=== PATIENT | male | born 1940 | race Caucasian/White ===

== ENCOUNTER → 2016-11-05 | Outpatient (CLI) | payer BC ==
[~2016-11-05] MED LIST: ASPEC81 PO; BENAZEPRIL/HCTZ PO; GLC5 PO; GLC500 PO; LSX20 PO; NVLGI7030 SC; PRAV20TA PO
[2016-11-05 17:29] LABS: BASO % 0.6 %; BASO ABS # 0.04 K/uL (0-0.2); COMPLETE YES; EOS % 7.7 %; HEMATOCRIT 41.5 % (42-52); IG% 0.3 %; LYMPH % 21.5 %; MEAN CELL VOLUME 94.1 fL (80-100); MONO % 8.3 %; NEUT % 61.6 %; PLATELET COUNT 165 K/uL (130-400); RED BLOOD COUNT 4.41 M/uL (4.7-6.1); WHITE BLOOD COUNT 6.97 K/uL (4.8-10.8)
[2016-11-05 17:39] LABS: ALT/SGPT 20 U/L (12-78); AST/SGOT 19 U/L (15-37); BLOOD UREA NITROGEN 34 mg/dl (7-18); BUN/CREATININE RATIO 20.1 (10-20); CALCIUM 9.1 mg/dl (8.5-10.1); CARBON DIOXIDE 26 mmol/L (21-32); CHLORIDE 104 mmol/L (98-107); GLUCOSE 252 mg/dl (70-99); POTASSIUM 4.4 mmol/L (3.5-5.1); SODIUM 138 mmol/L (136-145)
[2016-11-05 17:45] LABS: URINE APPEARANCE CLEAR (CLEAR); URINE BILIRUBIN NEG (NEG); URINE COLOR YELLOW; URINE EPITHELIAL CELL AUTO 0-5 /lpf (0-5); URINE NITRITE NEG (NEG); URINE SPECIFIC GRAVITY 1.019 (1.000-1.030); UROBILINOGEN NEG (NEG); ZZUR CULT IF INDIC CLEAN CATCH NO
[2016-11-05 17:49] LABS: CHOLESTEROL 108 mg/dl (0-200); CHOLESTEROL/HDL RATIO 2.2; HDL CHOLESTEROL 49 mg/dl; LDL CHOLESTEROL CALCULATED 37 mg/dl; PHOSPHORUS 2.6 mg/dl (2.5-4.9); TRIGLYCERIDES 111 mg/dl (0-150); VERY LOW DENSITY LIPOPROT CALC 22 mg/dl
[2016-11-05 17:49] LABS: MANUAL MICROSCOPIC REQUIRED? NO; REVIEW REQ? NO
[2016-11-06 06:54] LABS: ESTIMATED AVERAGE GLUCOSE 174 mg/dl; HA1C FLAG Normal (Normal)
== END | disposition home or self-care (01) ==
LOC: C.LABBFT 14:35
PROVIDERS: ATTEND Internal Medicine
DX: E11.21 Type 2 diabetes mellitus with diabetic nephropathy (principal); N18.3 Chronic kidney disease, stage 3 (moderate); E11.22 Type 2 diabetes mellitus with diabetic chronic kidney disease; E55.9 Vitamin D deficiency, unspecified; E78.00 Pure hypercholesterolemia, unspecified

== ENCOUNTER 2017-03-28 17:11 | Inpatient (IN) | payer BC, OTHER ==
[~2017-03-28] VITALS: Ht 172.7 cm; Wt 136.2 kg
[2017-03-28] MEDS ORDERED: ALBUT/IPRATROP 3MG/0.5MG NEB 3 ML VIAL INH STA (18:17)
[2017-03-28] MEDS ORDERED: ATOR-24 PO ×2 (18:34)
[2017-03-28] MEDS ORDERED: ASPI81TA28 PO ×2 (18:34)
[2017-03-28] MEDS ORDERED: CHOL1000 PO ×2 (18:34)
[2017-03-28] MEDS ORDERED: INSU70IN2 SC ×2 (18:34)
[2017-03-28] MEDS ORDERED: LISI-788 PO (18:34)
[2017-03-28 18:42] LABS: BASO % 0.6 %; BASO ABS # 0.04 K/uL (0-0.2); EOS % 1.6 %; EOS ABS # 0.11 K/uL (0-0.5); HEMATOCRIT 36.6 % (42-52); HEMOGLOBIN 12.5 g/dL (14.0-18.0); IG# 0.01 K/uL (0.00-0.02); LYMPH % 11.7 %; LYMPH ABS # 0.81 K/uL (1.2-3.4); MEAN CELL VOLUME 93.4 fL (80-100); MEAN CORPUSCULAR HEMOGLOBIN 31.9 pg (25-34); MEAN CORPUSCULAR HGB CONC 34.2 g/dl (32-36); MEAN PLATELET VOLUME 9.1 fL (7.4-10.4); MONO % 9.2 %; MONO ABS # 0.64 K/uL (0.11-0.59); NEUT % 76.8 %; NEUT ABS # 5.33 K/uL (1.4-6.5); PLATELET COUNT 180 K/uL (130-400); RED CELL DISTRIBUTION WIDTH SD 44.3 fL (36.4-46.3); WHITE BLOOD COUNT 6.94 K/uL (4.8-10.8)
[2017-03-28 18:54] LABS: INR 1.1 (0.9-1.1); PTT PATIENT 25.6 SECONDS (21.0-31.0)
[2017-03-28 19:13] LABS: ALBUMIN 3.4 gm/dl (3.4-5.0); CALCIUM 9.1 mg/dl (8.5-10.1); CKMB 2.8 ng/ml (0.5-3.6); CREATININE 1.51 mg/dl (0.60-1.40); POTASSIUM 4.6 mmol/L (3.5-5.1); TOTAL PROTEIN 7.7 gm/dl (6.4-8.2)
--- NOTE | 2017-03-28 19:17 | DIAGNOSTIC IMAGING REPORT ---
CHEST ONE VIEW PORTABLE CLINICAL HISTORY: Respiratory distress. Dyspnea. COMPARISON STUDY: Chest radiograph February 13, 2009. FINDINGS: There is apparent mild right hemithorax volume loss. There is a right suprahilar density. A small right pleural effusion is noted with mild right lower lung airspace opacity. There is no evidence for pulmonary edema. Cardiomediastinal silhouette is stable. There is no pneumothorax. There is an old fracture of the right clavicle. IMPRESSION: 1. Right suprahilar airspace opacity with possible right upper lobe volume loss. A nonemergent chest CT to exclude underlying mass is recommended. 2. Small right pleural effusion with mild right lower lung opacity which may reflect atelectasis or pneumonia. Electronically signed by: Sung Norton M.D. 03/28/2017 7:16 PM Dictated Date/Time: 03/28/2017 7:14 PM
[2017-03-28] MEDS ORDERED: OPTIRAY 320 IV PRN (20:00)
--- NOTE | 2017-03-28 20:24 | EMERGENCY ROOM VISIT NOTE ---
History Report prepared by Len: Lu May Under the Supervision of: Dr. Taran Bonilla D.O. First contact with patient: 18:05 Chief Complaint: RESPIRATORY PROBLEMS Stated Complaint: TROUBLE BREATHING, DIABETIC SICK History of Present Illness The patient is a 76 year old male who presents to the Emergency Room with complaints of persistent SOB starting 1 week ago. The SOB is mostly present when he lies down. He has never had this before. He has had a nonproductive cough. He denies any fever, abdominal pain, or weight gain. He has had leg swelling for a while now. He has a history of diabetes. His sugars have been high at times. He denies any history of AR or COPD. He denies starting any new medications recently. He quit smoking 3 days ago. Source of History: patient Onset: 1 week ago Position: other (global) Quality: other (SOB) Timing: other (persistent) Modifying Factors (Worsening): other (lying down) Associated Symptoms: + cough, No fevers, No abdominal pain Note: Pt reports leg swelling. Review of Systems See HPI for pertinent positives & negatives. A total of 10 systems reviewed and were otherwise negative. Past Medical & Surgical Medical Problems: (1) Diabetes (2) Lung mass Family History No pertinent family history stated. Social History Smoking Status: Current Every Day Smoker Occupation Status: retired Current/Historical Medications Scheduled Aspirin (Aspirin Ec), 81 MG PO DAILY Atorvastatin (Lipitor), 40 MG PO DAILY Cholecalciferol (Vitamin D3), 1 TAB PO DAILY Insulin Human Isophan/Regular (Novolin 70/30), 95 UNITS SC BID Lisinopril/Hctz (Zestoretic 20MG/25MG), 1 TAB PO DAILY Allergies Coded Allergies: No Known Allergies (Verified , 03/28/17) Physical Exam Vital Signs Date Time Temp Pulse Resp B/P (MAP) Pulse Ox O2 Delivery O2 Flow Rate FiO2 03/28/17 23:00 91 20 148/103 95 Nasal Cannula 4.0 03/28/17 22:09 102 03/28/17 21:38 69 22 162/71 96 Nasal Cannula 4.0 03/28/17 20:30 95 20 127/84 97 Nasal Cannula 3.0 03/28/17 18:34 83 03/28/17 18:30 85 24 168/76 96 Nasal Cannula 3.0 03/28/17 18:10 95 Nasal Cannula 3.0 03/28/17 17:19 89 Room Air 03/28/17 17:18 Nasal Cannula 2.0 03/28/17 17:14 36.3 102 26 145/68 89 Room Air Physical Exam GENERAL: Patient is awake, alert, very anxious appearing and appears to be in mild distress. EYES: The conjunctivae are clear. The pupils are round and reactive. EARS, NOSE, MOUTH AND THROAT: The nose is without any evidence of any deformity. Mucous membranes are moist tongue is midline NECK: The neck is nontender and supple. RESPIRATORY: Lung sounds diminished throughout with expiratory wheezing in all [place]. There was significant tachypnea and conversational dyspnea. Diminished breath sounds at the right base. CARDIOVASCULAR: Regular rate and rhythm noted there no murmurs rubs or gallops normal S1 normal S2 GASTROINTESTINAL: The abdomen is soft. Bowel sounds are present in all quadrants. Abdomen is nontender MUSCULOSKELETAL/EXTREMITIES: There is no evidence of gross deformity full range of motion is noted in the hips and shoulders SKIN: Pedal edema bilaterally. NEUROLOGIC: Patient is awake alert and oriented x3 Medical Decision & Procedures ER Provider Diagnostic Interpretation: X-ray results as stated below per interpretation by me and the radiologist. Radiology results as stated below per my review and radiologist interpretation: CHEST ONE VIEW PORTABLE CLINICAL HISTORY: Respiratory distress. Dyspnea. COMPARISON STUDY: Chest radiograph February 13, 2009. FINDINGS: There is apparent mild right hemithorax volume loss. There is a right suprahilar density. A small right pleural effusion is noted with mild right lower lung airspace opacity. There is no evidence for pulmonary edema. Cardiomediastinal silhouette is stable. There is no pneumothorax. There is an old fracture of the right clavicle. IMPRESSION: 1. Right suprahilar airspace opacity with possible right upper lobe volume loss. A nonemergent chest CT to exclude underlying mass is recommended. 2. Small right pleural effusion with mild right lower lung opacity which may reflect atelectasis or pneumonia. Electronically signed by: Sung Norton M.D. 03/28/2017 7:16 PM Dictated Date/Time: 03/28/2017 7:[address] ANGIOGRAPHY OF THE CHEST, PULMONARY EMBOLUS PROTOCOL CLINICAL HISTORY: Shortness of breath. COMPARISON STUDY: Chest radiograph February 13, 2009 and March 28, 2017. TECHNIQUE: Following IV administration of 91 mL of Optiray-320, helical axial images of the chest were obtained utilizing the pulmonary embolus protocol. Maximal intensity projections and sagittal and coronal reformats were viewed on an independent 3D workstation. IV contrast was administered without complication. A dose lowering technique was utilized adhering to the principles of ALARA. CT DOSE: 774.39 mGy.cm FINDINGS: No pulmonary emboli are identified although the segmental and subsegmental pulmonary arteries are suboptimally assessed due to respiratory motion. The heart is mildly enlarged. There is extensive coronary artery calcification. There is no pericardial effusion. There is a small right pleural effusion. There is no pneumothorax. Note is made of a right suprahilar mass with mediastinal extension that measures approximately 7.3 x 5.2 cm. This mass extends across the midline and likely abuts the anterior aspect of the adrienne. This mass results in significant narrowing of several right upper lobe bronchi. There are multiple enlarged mediastinal lymph nodes, including a 2.8 cm left upper mediastinal lymph node, a 1.5 cm right upper mediastinal lymph node and a 2.3 cm prevascular lymph node. Lungs are suboptimally assessed due to respiratory motion. A 4 mm right lower lobe nodule is similar to CT of February 13, 2011 and is likely benign. No suspicious osseous lesions are present. Upper abdomen is unremarkable with exception of calcified granulomas within the spleen. IMPRESSION: 1. No pulmonary emboli identified although segmental and subsegmental vessels suboptimally assessed due to respiratory motion. 2. Large right suprahilar right upper lobe mass with extensive mediastinal extension, as described above. This lesion is highly suggestive of bronchogenic carcinoma. Pulmonary consultation is recommended. 3. 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 4. Small right pleural effusion which is nonspecific. A malignant effusion cannot be excluded. Electronically signed by: Sung Norton M.D. 03/28/2017 9:48 PM Dictated Date/Time: 03/28/2017 9:35 PM Laboratory Results Test 03/28/17 18:16 03/28/17 18:18 Prothrombin Time 11.1 SECONDS (9.0-12.0) Prothromb Time International Ratio 1.1 (0.9-1.1) Activated Partial Thromboplast Time 25.6 SECONDS (21.0-31.0) Partial Thromboplastin Ratio 1.0 Total Bilirubin 0.6 mg/dl (0.2-1) Aspartate Amino Transf (AST/SGOT) 24 U/L (15-37) Alanine Aminotransferase (ALT/SGPT) 31 U/L (12-78) Alkaline Phosphatase 145 U/L (45-117) Total Creatine Kinase 99 U/L (39-308) Creatine Kinase MB 2.8 ng/ml (0.5-3.6) Creatine Kinase MB Ratio 2.8 (0-3.0) Total Protein 7.7 gm/dl (6.4-8.2) Albumin 3.4 gm/dl (3.4-5.0) Globulin 4.3 gm/dl (2.5-4.0) Albumin/Globulin Ratio 0.8 (0.9-2) Venous Blood pH 7.32 (7.36-7.41) Venous Blood Partial Pressure CO2 64 mmHg (38.0-50.0) Venous Blood Partial Pressure O2 46 mmHg Venous Blood HCO3 33 mmol/L Venous Blood Oxygen Saturation 73.9 % Venous Blood Base Excess 4.8 mEq/L Laboratory results per my review. Medications Administered Medications (Trade) Dose Ordered Sig/Michel Route Start Time Stop Time Status Last Admin Dose Admin Albuterol/ Ipratropium (Duoneb) 3 ml NOW STAT INH 03/28/17 18:17 03/28/17 18:18 DC 03/28/17 18:32 3 ML Methylprednisolone Sodium Succinate (Solu-Medrol IV) 125 mg NOW STAT IV 03/28/17 23:52 03/28/17 23:58 DC 03/29/17 01:21 125 MG ECG Per My Interpretation Indication: SOB/dyspnea Rate (beats per minute): 87 Rhythm: normal sinus Findings: no ectopy, other (no acute ST segments) Comparison ECG Date: 13-Feb-2009 Change: no significant change ED Course 1809: The patient was evaluated in room B5. A complete history and physical examination were performed. 1816: Duoneb 3 ml INH. 1943: I reevaluated the patient. I updated him on the results. 2204: Upon reevaluation, the patient is stable. I discussed results and treatment plan with him. He verbalizes agreement and understanding. The patient will be evaluated for further management and care. 2303: I discussed the patient's case with Dr. Ortiz, [facility] hospitalist. The patient will be evaluated for further management. Medical Decision Prior records/ancillary studies reviewed. Triage Nursing notes reviewed. Additional history obtained from the family. The patient's history was concerning for respiratory difficulties. Differential diagnosis: Etiologies such as infections, reactive airway disease, pneumonia, pneumothorax , COPD, CHF, cardiac ischemia, pulmonary embolism, musculoskeletal, gastrointestinal, as well as others were entertained. The patient is a 76-year-old male who presented to the emergency department for an evaluation of cough and orthopnea. The patient has a long smoking history. His chest x-ray appeared to be consistent with a large mass in the right upper lobe with widening to the mediastinum and the right hilar region. CT did not reveal signs of venous thromboembolic disease but did show a large mass which is likely consistent with a neoplastic process with significant mediastinal lymph nodes. I discussed the patient's laboratory and radiographic studies with him. He was treated with supplemental oxygen and DuoNeb therapy in the emergency department. His condition was significantly improved. I discussed the patient's condition with his family member. Initially he did not wish to stay in the hospital for further workup but I do feel given the patient's abnormal vital signs this would be the best course of action. I discussed his case with the on-call [facility] hospitalist group. They have agreed to evaluate the patient in the emergency department for further management and disposition. Medication Reconcilliation Current Medication List: was personally reviewed by me Blood Pressure Screening Patient's blood pressure: Elevated blood pressure Blood pressure disposition: Referred to PCP Consults Time Called: 2208 Consulting Physician: Dr. Ortiz, [facility] hospitalist Returned Call: [phone] I discussed the patient's case with him. The patient will be evaluated for further management. Impression Primary Impression: SOB (shortness of breath) Additional Impressions: Lung mass Hypoxia COPD (chronic obstructive pulmonary disease) Scribe Attestation The scribe's documentation has been prepared under my direction and personally reviewed by me in its entirety. I confirm that the note above accurately reflects all work, treatment, procedures, and medical decision making performed by me. Departure Information Dispostion Being Evaluated By Hospitalist Referrals Anil Valdez M.D. (PCP) Patient Instructions [facility] Health Problem Qualifiers Additional Impressions: COPD (chronic obstructive pulmonary disease) COPD type: unspecified COPD Qualified Codes: J44.9 - Chronic obstructive pulmonary disease, unspecified
--- NOTE | 2017-03-28 21:49 | DIAGNOSTIC IMAGING REPORT ---
CT ANGIOGRAPHY OF THE CHEST, PULMONARY EMBOLUS PROTOCOL CLINICAL HISTORY: Shortness of breath. COMPARISON STUDY: Chest radiograph February 13, 2009 and March 28, 2017. TECHNIQUE: Following IV administration of 91 mL of Optiray-320, helical axial images of the chest were obtained utilizing the pulmonary embolus protocol. Maximal intensity projections and sagittal and coronal reformats were viewed on an independent 3D workstation. IV contrast was administered without complication. A dose lowering technique was utilized adhering to the principles of ALARA. CT DOSE: 774.39 mGy.cm FINDINGS: No pulmonary emboli are identified although the segmental and subsegmental pulmonary arteries are suboptimally assessed due to respiratory motion. The heart is mildly enlarged. There is extensive coronary artery calcification. There is no pericardial effusion. There is a small right pleural effusion. There is no pneumothorax. Note is made of a right suprahilar mass with mediastinal extension that measures approximately 7.3 x 5.2 cm. This mass extends across the midline and likely abuts the anterior aspect of the adrienne. This mass results in significant narrowing of several right upper lobe bronchi. There are multiple enlarged mediastinal lymph nodes, including a 2.8 cm left upper mediastinal lymph node, a 1.5 cm right upper mediastinal lymph node and a 2.3 cm prevascular lymph node. Lungs are suboptimally assessed due to respiratory motion. A 4 mm right lower lobe nodule is similar to CT of February 13, 2011 and is likely benign. No suspicious osseous lesions are present. Upper abdomen is unremarkable with exception of calcified granulomas within the spleen. IMPRESSION: 1. No pulmonary emboli identified although segmental and subsegmental vessels suboptimally assessed due to respiratory motion. 2. Large right suprahilar right upper lobe mass with extensive mediastinal extension, as described above. This lesion is highly suggestive of bronchogenic carcinoma. Pulmonary consultation is recommended. 3. 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 4. Small right pleural effusion which is nonspecific. A malignant effusion cannot be excluded. Electronically signed by: Sung Norton M.D. 03/28/2017 9:48 PM Dictated Date/Time: 03/28/2017 9:35 PM
[2017-03-28] MEDS ORDERED: ACETAMINOPHEN 325 MG TAB PO PRN (23:45)
[2017-03-28] MEDS ORDERED: POLYETHYLENE (MIRALAX) 17 GM PACK PO PRN (23:45)
[2017-03-28] MEDS ORDERED: ALUMINUM/MAGNESIUM/SIMETH (MAALOX MAX) 30 ML UDC PO PRN (23:45)
[2017-03-28] MEDS ORDERED: MAGNESIUM HYDROXIDE SUSP 30 ML UDC PO PRN (23:45)
[2017-03-28] MEDS ORDERED: ONDANSETRON INJ 2 MG/ML 2 ML VIAL IV PRN (23:45)
[2017-03-28] MEDS ORDERED: METHYLPREDNISOLONE 125 MG VIAL IV STA (23:52)
[2017-03-29] VITALS (12 sets, daily range): BP systolic 108–151; BP diastolic 56–74; PULSE 66–123; TEMP 36.2–36.9; O2SAT 92–99; BMI 44.2
[2017-03-29] MEDS ORDERED: GLUCOSE 40% GEL 15 GM TUBE PO PRN (00:15)
[2017-03-29] MEDS ORDERED: GLUCOSE 10 TABS/TUBE PO PRN (00:15)
[2017-03-29] MEDS ORDERED: GLUCAGON FOR INJ 1 MG VIAL SQ PRN (00:15)
[2017-03-29] MEDS ORDERED: NITROGLYCERIN 0.4 MG SL PER TAB CHARGE SL PRN (00:15)
[2017-03-29] MEDS ORDERED: DEXTROSE 50% 50 ML SYR IV PRN (00:15)
[2017-03-29] MEDS ORDERED: IV FLUIDS COMPLETED PRN (00:30)
[2017-03-29] MEDS ORDERED: INSULIN HUMAN REGULAR PER UNIT 5 UNITS in SYRINGE 4.95 ML IV SCH (01:15)
[2017-03-29] MEDS ORDERED: INSULIN ASPART 100 UNITS/ML 3 ML PEN SC ONE (01:15)
[2017-03-29] MEDS ORDERED: INSULIN GLARGINE SC ONE ×2 (01:15→18:15)
--- NOTE | 2017-03-29 01:56 | History and Physical ---
History & Physical Date & Time of Service: Mar 29, 2017 at 01:37 Chief Complaint: Trouble Breathing, Diabetic Sick Primary Care Physician: Anil Valdez M.D. History of Present Illness Source: patient, family (daughter) the patient is a 76 year old male with type 2 diabetes mellitus, HTN, hyperlipidemia, obesity who presents with acute on chronic shortness of breath. The patient is a 2 pack daily smoker and states he quit 3 days ago. However, he states that for the past few years he has a persistent shortness of breath that is worse with exertion. He feels wheezy. However this past week, his shortness of breath has significantly worsened and he is now having a dry cough. He denies every being diagnosed with obstructive lung disease. The patient denies chest pain, palpitations, orthopnea/nocturnal dyspnea or lower extremity swelling. The patient has not had fevers, chills or sweats. He reports normal intake. There is no reported urinary symptoms of dysuria, frequency or urgency. There are no symptoms of diarrhea, melena or rectal bleeding. The patient denies abdominal pain, nausea, or vomiting. In the ER, the patient had a CT scan of the lung revealing a right apical mass with lymphadenopathy which was concerning for malignancy. The patient wanted to go home but daughter was very concerned that if he were to go home without plan for work-up he would be lost to follow-up. The patient was also hypoxic, require 3 L by nasal cannula, whereas he flores snot require any oxygen at home. The decision was made to admit the patient for further evaluation and treatment. Past Medical/Surgical History Medical Problems: (1) Diabetes Status: Chronic Family History CAD Type 2 DM Social History Smoking Status: Current Every Day Smoker Occupational Status: retired Immunizations History of Influenza Vaccine: Yes History of Tetanus Vaccine?: Yes Tetanus Immunization Date: Feb 22, 2004 History of Pneumococcal: Yes Pneumococcal Date: Feb 21, 2007 History of Hepatitis B Vaccine: No Multi-Drug Resistant Organisms History of MDRO: No Allergies Coded Allergies: No Known Allergies (Verified , 03/28/17) Home Medications Scheduled Aspirin (Aspirin Ec), 81 MG PO DAILY Atorvastatin (Lipitor), 40 MG PO DAILY Cholecalciferol (Vitamin D3), 1 TAB PO DAILY Insulin Human Isophan/Regular (Novolin 70/30), 95 UNITS SC BID Lisinopril/Hctz (Zestoretic 20MG/25MG), 1 TAB PO DAILY Review of Systems A 10 point review of systems was negative unless stated above. Physical Exam Vital Signs Date Time Temp Pulse Resp B/P (MAP) Pulse Ox O2 Delivery O2 Flow Rate FiO2 03/29/17 00:23 90 22 148/89 96 Nasal Cannula 4.0 03/28/17 23:00 91 20 148/103 95 Nasal Cannula 4.0 03/28/17 22:09 102 03/28/17 21:38 69 22 162/71 96 Nasal Cannula 4.0 03/28/17 20:30 95 20 127/84 97 Nasal Cannula 3.0 03/28/17 18:34 83 03/28/17 18:30 85 24 168/76 96 Nasal Cannula 3.0 03/28/17 18:10 95 Nasal Cannula 3.0 03/28/17 17:19 89 Room Air 03/28/17 17:18 Nasal Cannula 2.0 03/28/17 17:14 36.3 102 26 145/68 89 Room Air General Appearance: WD/WN, no apparent distress, + obese Head: normocephalic, atraumatic Eyes: normal inspection, EOMI ENT: hearing grossly normal, pharynx normal Neck: supple, no adenopathy, no JVD Respiratory/Chest: chest non-tender, no accessory muscle use, + wheezing (mild end-expiratory), + pertinent finding (diminished breath sounds throughout all lung [place]) Cardiovascular: regular rate, rhythm, no gallop, no murmur Abdomen/GI: normal bowel sounds, non tender, soft Back: no CVA tenderness, no muscle spasm Extremities/Musculoskelatal: no calf tenderness, normal capillary refill, no pedal edema, + pertinent finding (asencio lichenification) Neurologic/Psych: alert, normal mood/affect, oriented x 3 Skin: normal color, warm/dry, no rash Lymphatic: no adenopathy Diagnostics Laboratory Results Results Past 24 Hours Test 03/28/17 18:16 03/28/17 18:18 Range/Units White Blood Count 6.94 4.8-10.8 K/uL Red Blood Count 3.92 4.7-6.1 M/uL Hemoglobin 12.5 14.0-18.0 g/dL Hematocrit 36.6 42-52 % Mean Corpuscular Volume 93.4 80-100 fL Mean Corpuscular Hemoglobin 31.9 25-34 pg Mean Corpuscular Hemoglobin Concent 34.2 32-36 g/dl Platelet Count 180 130-400 K/uL Mean Platelet Volume 9.1 7.4-10.4 fL Neutrophils (%) (Auto) 76.8 % Lymphocytes (%) (Auto) 11.7 % Monocytes (%) (Auto) 9.2 % Eosinophils (%) (Auto) 1.6 % Basophils (%) (Auto) 0.6 % Neutrophils # (Auto) 5.33 1.4-6.5 K/uL Lymphocytes # (Auto) 0.81 1.2-3.4 K/uL Monocytes # (Auto) 0.64 0.11-0.59 K/uL Eosinophils # (Auto) 0.11 0-0.5 K/uL Basophils # (Auto) 0.04 0-0.2 K/uL RDW Standard Deviation 44.3 36.4-46.3 fL RDW Coefficient of Variation 13.0 11.5-14.5 % Immature Granulocyte % (Auto) 0.1 % Immature Granulocyte # (Auto) 0.01 0.00-0.02 K/uL Prothrombin Time 11.1 9.0-12.0 SECONDS Prothromb Time International Ratio 1.1 0.9-1.1 Activated Partial Thromboplast Time 25.6 21.0-31.0 SECONDS Partial Thromboplastin Ratio 1.0 Sodium Level 132 136-145 mmol/L Potassium Level 4.6 3.5-5.1 mmol/L Chloride Level 94 98-107 mmol/L Carbon Dioxide Level 32 21-32 mmol/L Anion Gap 6.0 3-11 mmol/L Blood Urea Nitrogen 30 7-18 mg/dl Creatinine 1.51 0.60-1.40 mg/dl Est Creatinine Clear Calc Drug Dose 57.4 ml/min Estimated GFR () 51.6 Estimated GFR (Non- 44.5 BUN/Creatinine Ratio 19.9 10-20 Random Glucose 389 70-99 mg/dl Calcium Level 9.1 8.5-10.1 mg/dl Total Bilirubin 0.6 0.2-1 mg/dl Aspartate Amino Transf (AST/SGOT) 24 15-37 U/L Alanine Aminotransferase (ALT/SGPT) 31 12-78 U/L Alkaline Phosphatase 145 45-117 U/L Total Creatine Kinase 99 39-308 U/L Creatine Kinase MB 2.8 0.5-3.6 ng/ml Creatine Kinase MB Ratio 2.8 0-3.0 Troponin I 0.203 0-0.045 ng/ml Pro-B-Type Natriuretic Peptide 224 0-900 pg/ml Total Protein 7.7 6.4-8.2 gm/dl Albumin 3.4 3.4-5.0 gm/dl Globulin 4.3 2.5-4.0 gm/dl Albumin/Globulin Ratio 0.8 0.9-2 Beta-Hydroxybutyric Acid 0.95 0.2-2.81 mg/dL Venous Blood pH 7.32 7.36-7.41 Venous Blood Partial Pressure CO2 64 38.0-50.0 mmHg Venous Blood Partial Pressure O2 46 mmHg Venous Blood HCO3 33 mmol/L Venous Blood Oxygen Saturation 73.9 % Venous Blood Base Excess 4.8 mEq/L Diagnostic Radiology CT ANGIOGRAPHY OF THE CHEST, PULMONARY EMBOLUS PROTOCOL CLINICAL HISTORY: Shortness of breath. COMPARISON STUDY: Chest radiograph February 13, 2009 and March 28, 2017. TECHNIQUE: Following IV administration of 91 mL of Optiray-320, helical axial images of the chest were obtained utilizing the pulmonary embolus protocol. Maximal intensity projections and sagittal and coronal reformats were viewed on an independent 3D workstation. IV contrast was administered without complication. A dose lowering technique was utilized adhering to the principles of ALARA. CT DOSE: 774.39 mGy.cm FINDINGS: No pulmonary emboli are identified although the segmental and subsegmental pulmonary arteries are suboptimally assessed due to respiratory motion. The heart is mildly enlarged. There is extensive coronary artery calcification. There is no pericardial effusion. There is a small right pleural effusion. There is no pneumothorax. Note is made of a right suprahilar mass with mediastinal extension that measures approximately 7.3 x 5.2 cm. This mass extends across the midline and likely abuts the anterior aspect of the adrienne. This mass results in significant narrowing of several right upper lobe bronchi. There are multiple enlarged mediastinal lymph nodes, including a 2.8 cm left upper mediastinal lymph node, a 1.5 cm right upper mediastinal lymph node and a 2.3 cm prevascular lymph node. Lungs are suboptimally assessed due to respiratory motion. A 4 mm right lower lobe nodule is similar to CT of February 13, 2011 and is likely benign. No suspicious osseous lesions are present. Upper abdomen is unremarkable with exception of calcified granulomas within the spleen. IMPRESSION: 1. No pulmonary emboli identified although segmental and subsegmental vessels suboptimally assessed due to respiratory motion. 2. Large right suprahilar right upper lobe mass with extensive mediastinal extension, as described above. This lesion is highly suggestive of bronchogenic carcinoma. Pulmonary consultation is recommended. 3. 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 4. Small right pleural effusion which is nonspecific. A malignant effusion cannot be excluded. Electronically signed by: Sung Norton M.D. 03/28/2017 9:48 PM Dictated Date/Time: 03/28/2017 9:35 PM Impression Assessment and Plan 76 year old male with acute on chronic shortness of breath and cough, presenting with hypoxia and radiographic findings of new lung mass highly suspicious for malignancy. The plan for the patient is as follows: Acute Hypoxic Respiratory Failure - 3 L in ED; no home O2 requirements - Duonebs q4h Michel and q2h PRN - 125 mg IV Solumedrol --> 40 mg IV TID starting tomorrow; taper per day team - No evidence of PNA, will hold off on antibiotics Right Apical Lung Mass - Concern for Malignancy - Consult thoracic surgery for recommendations on work-up Suspected Occult COPD - Nebs as above - Consider discharged on inhalers - Will check echocardiogram to evaluate for pulmonary HTN Elevated Troponin - No chest pain; clinically suspicious for supply demand mismatch - EKG is NSR - Monitor in telemetry; serial cardiac enzyme monitoring - Nitro PRN for chest pain Type 2 Diabetes Mellitus - Home home 70/30 NPH insulin - Start Lantus 65 Units BID + SSI - May have higher insulin requirements with steroids on board Chronic Kidney Disease Stage 3b - Stable; Baseline Cr 1.6-1.7; Baseline eGFR 35-45 - Follow daily - Avoid nephrotoxins Hyperlipidemia, Hypertension - Continue Simvastatin - Continue Lisinopril HCTZ - Patient on ASA at home; reason unclear; no history of CAD so likely for primary prevention Chronic Tobacco Abuse - Nicotine patch daily DVT Prophylaxis - SCD Knee, MARLI Hose - Heparin 5000 U s.c. TID Code Status - Level I Full Code Disposition - Telemetry - OT and PT evaluations Resident Physician Supervision Note: I was present with Dr. Kingsley during the history and exam. I discussed the case with the resident and agree with the findings and plan as documented in the note. Any exceptions or clarifications are listed here: 76 y/o M Hx HTN, HPL, DM II, CKD III, likely COPD - 2 pack/day smoker - presents with SOB primarily. A CT was obtained in the ER and unfortunately shows a R lung mass. Troponin is incidentally elevated without related symptoms or ischemia on EKG. OE AAO x 3 S1,2 R CTA NT, ND No CCE P: Thoracic surgery eval for lung mass requested Trop will be trended and echo ordered Creat is at baseline - can remain on current HTN meds We will treat for presumed COPD exacerbation Placed on a SS and lantus Above discussed with pt and daughter at length Documented By: Marko Womack Level of Care Telemetry Resuscitation Status FULL RESUSCITATION VTE Prophylaxis VTE Risk Assessment Done? Y/N: Yes Risk Level: Moderate Given or contraindicated: Unfractionated heparin SQ
[2017-03-29] MEDS: ALBUT/IPRATROP 3MG/0.5MG NEB 3 ML VIAL INH SCH ×5 (02:37→19:46)
[2017-03-29] MEDS: INSULIN ASPART 100 UNITS/ML 3 ML PEN SC SCH ×5 (04:50→20:58)
[2017-03-29] MEDS ORDERED: HEPARIN SOD 5000 UNIT/0.5 ML CARP SQ SCH (06:00)
[2017-03-29 06:36] LABS: BASO % 0.1 %; BASO ABS # 0.01 K/uL (0-0.2); EOS % 0.1 %; EOS ABS # 0.01 K/uL (0-0.5); HEMATOCRIT 38.6 % (42-52); HEMOGLOBIN 12.6 g/dL (14.0-18.0); IG# 0.02 K/uL (0.00-0.02); LYMPH % 4.5 %; LYMPH ABS # 0.34 K/uL (1.2-3.4); MEAN CELL VOLUME 95.5 fL (80-100); MEAN CORPUSCULAR HEMOGLOBIN 31.2 pg (25-34); MEAN CORPUSCULAR HGB CONC 32.6 g/dl (32-36); MEAN PLATELET VOLUME 9.3 fL (7.4-10.4); MONO % 1.2 %; MONO ABS # 0.09 K/uL (0.11-0.59); NEUT % 93.8 %; NEUT ABS # 7.05 K/uL (1.4-6.5); PLATELET COUNT 170 K/uL (130-400); RED CELL DISTRIBUTION WIDTH CV 13.2 % (11.5-14.5); RED CELL DISTRIBUTION WIDTH SD 46.2 fL (36.4-46.3); WHITE BLOOD COUNT 7.52 K/uL (4.8-10.8)
[2017-03-29 06:59] LABS: CREATININE 1.61 mg/dl (0.60-1.40); POTASSIUM 4.8 mmol/L (3.5-5.1)
[2017-03-29] MEDS: LISINOPRIL/HCTZ 20/25MG TAB PO SCH (08:34)
[2017-03-29] MEDS: ATORVASTATIN 40 MG TAB PO SCH (08:34)
[2017-03-29] MEDS: METHYLPREDNISOLONE IV 40 MG in SYRINGE 0 ML IV SCH ×3 (08:34→23:44)
[2017-03-29] MEDS ORDERED: INSULIN GLARGINE SC SCH ×2 (09:00→21:00)
[2017-03-29] MEDS: NICOTINE 21 MG/24 HR TDSY TD SCH (09:00)
[2017-03-29] MEDS ORDERED: ASPIRIN 81 MG ECTAB PO SCH (09:00)
[2017-03-29] MEDS ORDERED: INSULIN HUMAN 70% NPH/30% REGULAR SC SCH (09:00)
--- NOTE | 2017-03-29 11:32 | Medical Consult ---
Consultation Note Date of Service Mar 29, 2017. Consultation Note Surgical Consultation Note: 03/29/2017 Reason for Consultation: Mediastinal lymphadenopathy with right hilar mass in a patient with a long history of cigarette smoking. History of Present Illness: This is a 76-year-old who started smoking before the age of 11 is averaged at least 2 packs a day for the last 60+ years. He was smoking up in the time of his admission. He was admitted because the week or so for he came and he could no longer lie down in "breathe". He had dyspnea on exertion that has been worsening but he then had dyspnea at rest and was quite concerned. Denies hemoptysis. He denies productive cough or fevers. With his inability to lie down he has been forced to sleep in a chair which is not his habit. He has had marked edema of his legs with this. He has had no real weight loss. He really is not having much in the way of pain. He is very eager to go home. As he was hypoxic he was admitted. I have been asked to evaluate him for a tissue biopsy. Past Medical History: Long history of cigarette smoking (greater than 120 pack years). Obesity Diabetes mellitus Hypertension Chronic obstructive pulmonary disease Hyperlipidemia Past Surgical History: Bilateral inguinal herniorrhaphies Bilateral cataract extractions Appendectomy for mucocele Medications: Insulin Zestoretic Lipitor Aspirin Allergies: No known drug allergies Social History: The patient grew up in [place] and still lives there. He is from a large family. He currently lives alone. He is a smoker and actively smokes. He has used alcohol the past but not now. He has a daughter who is involved in his care. 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 Family Medical History: The patient an older brother who in his 70s from a "cancer". He was unclear of its origin. His father was killed in a motor vehicle accident in his 40s. Mother in her early 80s after a hip surgery and subsequent infection. He has had 2 sisters who from unknown reasons another brother who of unclear reason. His 2 daughters are healthy. He has no grandchildren. Review of Systems: He denies any weight loss. He does have shortness of breath as outlined in the history of present illness. He denies productive cough. He has no bone pain. He has no recent visual or auditory symptoms. He has had no wound breakdown. He does suffer from what appears to be venous lower extremity edema. He denies any neurologic symptoms such as amaurosis fugax or transient ischemic attack and he has had no seizures. Has been quite short of breath. Denies any GI or problems. Feels that he is a bit weaker. He denies night sweats. Physical Exam: This is a heavyset male who appears his stated age of 76. He is awake alert and conversive. His extraocular movements are intact. His pupils are small. His sclera are pale. He has no nasolabial flattening. He has no upper teeth but still has his lower teeth in place. He has no obvious oral mucosal lesions and his tongue is midline. His neck is thick but supple. He has no lymphadenopathy I can palpate and in particular I could not palpate any supraclavicular adenopathy. He has no carotid bruits or neck vein distention. He has decreased breath sounds throughout upon auscultation of his lungs. He has mild expiratory wheezing. He has distant heart sounds with a regular rate and rhythm his heart. His abdomen is huge protuberant but soft and nontender. He has a well-healed right transverse right lower quadrant incision and 2 inguinal incisions for his hernias which are well-healed. 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 He has 2+ edema of his feet. 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 He has no focal deficits. He is awake alert and conversive. Data: His white count is not elevated at 6940. Hemoglobin is a bit low at 12.5. Creatinine is also a bit elevated at 1.51 and his BUN was 30. I closely reviewed the CT scan of his chest. This process in his mediastinum is almost occluded his superior vena cava. It appears that he does indeed have a bronchogenic carcinoma. 1 of the problems could be that this is a small cell lung carcinoma. Could also be a lymphoma although this less likely. He has a small right pleural effusion. Assessment/Plan: Probable neoplastic process in his chest. I explained that we need a tissue diagnosis. There are couple of different options. One would be to tap his effusion however it is small it is possible that it is reactive. I also considered a needle biopsy however given its location, radiology will be hesitant to offer this. We discussed an endobronchial ultrasound with biopsy versus mediastinoscopy. This patient lives alone and is going to be very poor with follow-up. His daughter would like "everything" done here. I am concerned we may not get a diagnosis with genomic markers and immunohistochemical stains with a fine needle aspiration with the endobronchial ultrasound. I think a video mediastinoscopy will give us our fastest and most reliable diagnosis. I have scheduled him for tomorrow morning. We discussed risks and benefits and he is agreeable.
--- NOTE | 2017-03-29 12:54 | Family Medicine Progress Note ---
Progress Note Date of Service Mar 29, 2017. Subjective I spoke at length with Mr. Jordan this morning. He expresses a desire to go home as soon as possible, however conversely is experiencing improved ability to rest than he has had in a while. Describes difficulty breathing when he would lay down for the past 2 weeks, and which he had to sleep in a recliner. Before that the pt describes an extensive smoking history of 2 ppd for the past several years, and 1 ppd for years before that. Denies chest pain, headaches, syncope, abdominal pain, diarrhea, dysuria, blood in stool or urine. Notes chronic leg swelling and dryness and dry cough. Per night team, pt's daughter is involved and urged him to stay overnight. ROS See HPI for pertinent positives and negatives. Medications Current Inpatient Medications Medications (Trade) Dose Ordered Sig/Michel Route Start Time Stop Time Status Last Admin Dose Admin Ioversol (Optiray 320) 100 ml UD PRN IV 03/28/17 20:00 04/01/17 19:59 Heparin Sodium (Porcine) (Heparin Sq 5000 Unit/0.5ml) 5,000 unit Q8H SQ 03/29/17 06:00 04/28/17 05:59 Future Hold Acetaminophen (Tylenol Tab) 650 mg Q4H PRN PO 03/28/17 23:45 04/27/17 23:44 Al Hydrox/Mg Hydrox/Simethicone (Maalox Max Susp) 15 ml Q4H PRN PO 03/28/17 23:45 04/27/17 23:44 Magnesium Hydroxide (Milk Of Magnesia Susp) 30 ml Q6H PRN PO 03/28/17 23:45 04/27/17 23:44 Polyethylene (Miralax Powder Packet) 17 gm DAILY PRN PO 03/28/17 23:45 04/27/17 23:44 Ondansetron HCl (Zofran Inj) 4 mg Q6H PRN IV 03/28/17 23:45 04/27/17 23:44 Albuterol/ Ipratropium (Duoneb) 3 ml QIDR INH 03/29/17 08:00 04/28/17 07:59 03/29/17 11:13 3 ML Aspirin (Ecotrin Tab) 81 mg DAILY PO 03/29/17 09:00 04/28/17 08:59 03/29/17 08:34 81 MG Atorvastatin Calcium (Lipitor Tab) 40 mg DAILY PO 03/29/17 09:00 04/28/17 08:59 03/29/17 08:34 40 MG HCTZ/Lisinopril (Prinzide 20-25MG Tab) 1 tab DAILY PO 03/29/17 09:00 04/28/17 08:59 03/29/17 08:34 1 TAB Methylprednisolone Sodium Succinate 40 mg/Syringe 0.64 ml @ 1.5 mls/min Q8H IV 03/29/17 08:00 04/28/17 07:59 03/29/17 08:34 1.5 MLS/MIN Insulin Aspart (novoLOG ASPART) SLIDING SCALE G... ACHS SC 03/29/17 04:00 04/28/17 03:59 03/29/17 08:39 14 UNITS Glucose (Glucose 40% Gel) 15-30 GRAMS 15 GRAMS... UD PRN PO 03/29/17 00:15 04/28/17 00:14 Glucose (Glucose Chew Tab) 4-8 Tablets 4 Tabl... UD PRN PO 03/29/17 00:15 04/28/17 00:14 Dextrose (Dextrose 50% 50ML Syringe) 25-50ML OF 50% DW IV FOR... UD PRN IV 03/29/17 00:15 04/28/17 00:14 Glucagon (Glucagon Inj) 1 mg UD PRN SQ 03/29/17 00:15 04/28/17 00:14 Nitroglycerin (Nitrostat Tab) 0.4 mg PRN PRN SL 03/29/17 00:15 04/28/17 00:14 Miscellaneous (Iv Fluids Completed) 1 ea PRN PRN N/A 03/29/17 00:30 03/29/18 00:29 Insulin Glargine (Lantus Vial) 65 units BID SC 03/29/17 09:00 04/28/17 08:59 03/29/17 08:39 65 UNITS Nicotine (Nicoderm Cq 21MG Patch) 1 patch QAM TD 03/29/17 09:00 04/28/17 08:59 Miscellaneous (Remove Nicoderm Patch) 1 ea HS N/A 03/29/17 21:00 04/28/17 20:59 Objective Vital Signs Date Time Temp Pulse Resp B/P (MAP) Pulse Ox O2 Delivery O2 Flow Rate FiO2 03/29/17 11:15 36.5 103 18 133/73 (93) Nasal Cannula 03/29/17 11:13 99 16 95 Nasal Cannula 4.0 03/29/17 08:00 Nasal Cannula 4.0 03/29/17 08:00 36.5 66 20 115/74 (88) 96 Room Air 03/29/17 07:21 111 16 99 Nasal Cannula 4.0 03/29/17 04:00 97 Nasal Cannula 4.0 03/29/17 02:37 93 16 98 Nasal Cannula 4.0 03/29/17 02:00 36.2 104 16 151/74 03/29/17 02:00 36.2 104 20 151/74 98 Nasal Cannula 4.0 03/29/17 00:23 90 22 148/89 96 Nasal Cannula 4.0 03/28/17 23:00 91 20 148/103 95 Nasal Cannula 4.0 03/28/17 22:09 102 03/28/17 21:38 69 22 162/71 96 Nasal Cannula 4.0 03/28/17 20:30 95 20 127/84 97 Nasal Cannula 3.0 03/28/17 18:34 83 03/28/17 18:30 85 24 168/76 96 Nasal Cannula 3.0 03/28/17 18:10 95 Nasal Cannula 3.0 03/28/17 17:19 89 Room Air 03/28/17 17:18 Nasal Cannula 2.0 03/28/17 17:14 36.3 102 26 145/68 89 Room Air Physical Exam Notes: GENERAL: Awake, alert, obese. Sitting on side of bed. HENT: Normocephalic, atraumatic. Nasal cannula in place 4 L. Poor dentition. EYES: Normal conjunctiva. Sclera non-icteric. RESPIRATORY: Diminished breath sounds bilaterally. CARDIAC: Regular rate, normal rhythm. Extremities warm. Pulses equal. ABDOMEN: Soft, non-distended. No tenderness to palpation. No rebound or guarding. No masses. RECTAL: Deferred. MUSCULOSKELETAL: Chest examination reveals no tenderness. The back is symmetrical on inspection without obvious abnormality. There is no CVA tenderness to palpation. No joint edema. LOWER EXTREMITIES: Calves are equal size bilaterally and non-tender. Severe dryness of lower calves. Non erythematous, trace edema. NEURO: No motor deficits noted. SKIN: No rash or jaundice noted. Innumerable actinic keratotic plaques visible. Laboratory Results 03/29/17 06:09 Red Blood Count 4.04, Mean Corpuscular Volume 95.5, Mean Corpuscular Hemoglobin 31.2, Mean Corpuscular Hemoglobin Concent 32.6, Mean Platelet Volume 9.3, Neutrophils (%) (Auto) 93.8, Lymphocytes (%) (Auto) 4.5, Monocytes (%) (Auto) 1.2, Eosinophils (%) (Auto) 0.1, Basophils (%) (Auto) 0.1, Neutrophils # (Auto) 7.05, Lymphocytes # (Auto) 0.34, Monocytes # (Auto) 0.09, Eosinophils # (Auto) 0.01, Basophils # (Auto) 0.01 03/29/17 06:09 Test 03/28/17 18:16 03/28/17 18:18 03/29/17 06:09 03/29/17 11:50 Prothrombin Time 11.1 SECONDS (9.0-12.0) Prothromb Time International Ratio 1.1 (0.9-1.1) Activated Partial Thromboplast Time 25.6 SECONDS (21.0-31.0) Partial Thromboplastin Ratio 1.0 Total Bilirubin 0.6 mg/dl (0.2-1) Aspartate Amino Transf (AST/SGOT) 24 U/L (15-37) Alanine Aminotransferase (ALT/SGPT) 31 U/L (12-78) Alkaline Phosphatase 145 U/L (45-117) Total Creatine Kinase 99 U/L (39-308) Creatine Kinase MB 2.8 ng/ml (0.5-3.6) Creatine Kinase MB Ratio 2.8 (0-3.0) Pro-B-Type Natriuretic Peptide 224 pg/ml (0-900) Total Protein 7.7 gm/dl (6.4-8.2) Albumin 3.4 gm/dl (3.4-5.0) Globulin 4.3 gm/dl (2.5-4.0) Albumin/Globulin Ratio 0.8 (0.9-2) Venous Blood pH 7.32 (7.36-7.41) Venous Blood Partial Pressure CO2 64 mmHg (38.0-50.0) Venous Blood Partial Pressure O2 46 mmHg Venous Blood HCO3 33 mmol/L Venous Blood Oxygen Saturation 73.9 % Venous Blood Base Excess 4.8 mEq/L White Blood Count 7.52 K/uL (4.8-10.8) Red Blood Count 4.04 M/uL (4.7-6.1) Hemoglobin 12.6 g/dL (14.0-18.0) Hematocrit 38.6 % (42-52) Mean Corpuscular Volume 95.5 fL (80-100) Mean Corpuscular Hemoglobin 31.2 pg (25-34) Mean Corpuscular Hemoglobin Concent 32.6 g/dl (32-36) Platelet Count 170 K/uL (130-400) Mean Platelet Volume 9.3 fL (7.4-10.4) Neutrophils (%) (Auto) 93.8 % Lymphocytes (%) (Auto) 4.5 % Monocytes (%) (Auto) 1.2 % Eosinophils (%) (Auto) 0.1 % Basophils (%) (Auto) 0.1 % Neutrophils # (Auto) 7.05 K/uL (1.4-6.5) Lymphocytes # (Auto) 0.34 K/uL (1.2-3.4) Monocytes # (Auto) 0.09 K/uL (0.11-0.59) Eosinophils # (Auto) 0.01 K/uL (0-0.5) Basophils # (Auto) 0.01 K/uL (0-0.2) RDW Standard Deviation 46.2 fL (36.4-46.3) RDW Coefficient of Variation 13.2 % (11.5-14.5) Immature Granulocyte % (Auto) 0.3 % Immature Granulocyte # (Auto) 0.02 K/uL (0.00-0.02) Anion Gap 6.0 mmol/L (3-11) Est Creatinine Clear Calc Drug Dose 52.4 ml/min Estimated GFR () 47.8 Estimated GFR (Non- 41.2 BUN/Creatinine Ratio 19.2 (10-20) Calcium Level 9.0 mg/dl (8.5-10.1) Beta-Hydroxybutyric Acid 1.01 mg/dL (0.2-2.81) Bedside Glucose 297 mg/dl (70-99) Test 03/29/17 11:53 Troponin I 0.099 ng/ml (0-0.045) Assessment and Plan 76 y/o M PMH hypertension, CKD, AAA, CAD, uncontrolled COPD, tobacco abuse, T2DM. Here for dyspnea found to have lung mass on CT. Of note, pt has expressed a strong dislike to being in the hospital, but has been mostly amenable to all interventions and diagnostics thus far. 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 This mass extends across the midline and likely abuts the anterior aspect of the adrienne. This mass results in significant narrowing of several right upper lobe bronchi. There are multiple enlarged mediastinal lymph nodes, including a 2.8 cm left upper mediastinal lymph node, a 1.5 cm right upper mediastinal lymph node and a 2.3 cm prevascular lymph node. A 4 mm right lower lobe nodule is similar to CT of February 13, 2011 and is likely benign. No suspicious osseous lesions are present. This lesion is highly suggestive of bronchogenic carcinoma. - CT Surg consulted - Dr. Davenport will take to OR 03/30 in AM for video guided mediastinoscopy. - Heparin hold. Acute on chronic SOB/COPD - Duonebs, solumedrol 40mg q8h - Pulmonology consult ordered - Not on home O2 - may need home oxygen. - Need to assess heart function given orthopnea symptoms and weakness - Echo and BNP ordered. Pending. If abnormal, may rec cardiology consult. CKD 3B - renally dose meds - baseline [employer] since 2012 is 1.7-2.0. - [employer] here is 1.61 as of 03/29. Hyperglycemia, T2DM - ISS, basal . Tightening control given solumedrol - Normally on 95 units Novolin 70/30 daily at home Hypertension - continue Lisinopril/HCTZ 20/25mg daily. Hyperlipidemia - continue atorvastatin 40mg daily CAD - continue ASA 81mg tab daily Tobacco abuse - nicotine 21 mg patch TD QAM. DVT ppx scd's as we hold heparin in prep for OR tomorrow Code: full Dispo med/surg Continued [facility] stay due to: other (awaiting mediastinoscopy) Discharge planning: home Resident Tracking Resident Involvement: Resident Care Provided Care Provided: Adult Hospital Medicine
[2017-03-29] MEDS ORDERED: PERFLUTREN LIPID MICROSPHERE (DEFINITY) IV ONE (15:04)
[2017-03-29] MEDS ORDERED: POLYETHYLENE (MIRALAX) 17 GM PACK PO PRN (15:45)
--- NOTE | 2017-03-29 16:10 | ECHOCARDIOGRAM REPORT ---
*NOTICE TO RECEIVING DEMOCRAT AGENCY This information is strictly Confidential and protected under [place] law. [place] law prohibits you from making any further disclosure of this information unless further disclosure is expressly permitted by the written consent of the person to whom it pertains or is authorized by law. A general authorization for the release of medical or other information is not sufficient for this purpose. Hospital accepts no responsibility if the information is made available to any other person, INCLUDING THE PATIENT. Interpretation Summary * Name: MALCOLM MENDIOLA Study Date: 03/29/2017 02:33 PM BP: 108/56 mmHg * Patient Location: [facility]\S\N283\S\2 HR: 120 * : 1940 (M/d/yyyy) Gender: Male Height: 69 in * Age: 76 yrs Ethnicity: MO Weight: 294 lb * Ordering Physician: Awilda Sparrow * Referring Physician: No Doctor, Assigned * Performed By: Deyanira Lester RDCS * * Reason For Study: PULMONARY HTN? * BSA: 2.4 m2 * Patient done sitting straight up, Extremely short of breath, Could not find any windows, Could not even see heart function with Definity contrast * -- Conclusions -- * Severely limited echo despite use of definity ultrasound contrast. * 1. Grossly normal LV size and function. Cannot exclude regional wall motion abnormalities. * 2. RV not well visualized. * 3. Valvular function not well visualized. Unable to estimate pulmonary pressures. Procedure Details * A contrast injection of Definity was performed to improve assessment of LV function. * Contrast was injected into an intravenous site in the left arm. * One vial of Definity ultrasound contrast was diluted in normal saline to a total volume of 10 ml. A total of '2' ml of solution was administered during imaging. * Lot # [id number] of Definity utilized for procedure. * Expiration date FEB 27. * The attending nurse who injected the contrast agent was JASPREET CHILD RN. Left Ventricle * The left ventricle is not well visualized. * The left ventricle is grossly normal size. * The left ventricular ejection fraction is grossly normal. * Regional wall motion abnormalities cannot be excluded due to limited visualization. Right Ventricle * The right ventricle is not well visualized. Atria * The left atrium is not well visualized. * Right atrium not well visualized. Mitral Valve * The mitral valve is not well visualized. Tricuspid Valve * The tricuspid valve is not well visualized. Aortic Valve * The aortic valve is not well visualized. Pulmonic Valve * The pulmonic valve is not well visualized. Great Vessels * Normal inferior vena cava size and collapsability with sniff indicates a normal right atrial pressure of 3 mmHg
--- NOTE | 2017-03-29 17:42 | Pulmonary Consultation ---
History General Date of Service: Mar 29, 2017. Stated Complaint: Lung Mass HPI The patient is a 76 year old male who presents to [facility] with complaints of Lung Mass. The patient's primary care provider is Anil Valdez M.D.. 76-year-old gentleman admitted through the emergency room secondary to progressive dyspnea and orthopnea. On the workup the patient was noted to have a large right mediastinal mass with contralateral lymph nodes and a small right- sided pleural effusion. He does have a PmHx: Significant for tobacco abuse greater than 50 pack year, diabetes, diabetic nephropathy, neuropathy, chronic kidney disease and COPD (FEV1: 65% PFT: 05/23/2010). Patient notes a progressive history of dyspnea over the last week but after speaking to the patient he notes he has had difficulty ambulating for least the past 4-5 years along with associated bilateral lower extremity edema. He currently denies: Fever, chills, unintentional weight loss, pleurisy, classic cardiac chest pain, nausea, vomiting, diarrhea. Current workup EKG: Normal sinus rhythm rate 87 poor waveforms VB.32/64 corrected to 7.36/53 Troponin: 0.203 --0.120 --0.099 Sodium 132 Glucose 300-400 Anion gap: 6 Albumin: 3.4 Chest x-ray: Right upper lobe infiltrative mass with right costophrenic blunting Past medical history 1. Diabetes mellitus 2. Diabetic nephropathy 3. 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 Chronic kidney disease stage III 5. Vitamin D deficiency 6. Abdominal aortic aneurysm 7. COPD (FEV1: 65%) PFT--05/23/2010 8. Hypercholesterolemia 9. Heart murmur 10. GERD 11. Erectile dysfunction 12. Carotid stenosis 13. Colonic polyps 14. 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 Anemia 17. History of bilateral cataract 18. Chronic tobacco use Past surgical history 1. Colonoscopy 04/04/2011 2. Bilateral cataract surgery Social history Alcohol: History of abuse Tobacco: Current smoker greater than 50 pack year history Occupation: [employer] Living status: Family history Coronary artery disease Diabetes Historian: patient, EMS Review of Systems Constitutional: reports: weakness Eyes: reports: no symptoms ENT: reports: no symptoms Cardiovascular: reports: no symptoms Respiratory: reports: as stated in HPI Gastrointestinal: reports: no symptoms Genitourinary - Male: reports: no symptoms Musculoskeletal: reports: no symptoms Integumentary: reports: no symptoms Neurologic: reports: no symptoms Psychiatric: reports: no symptoms Endocrine: no symptoms Hematologic / Lymphatic: no symptoms Past Medical History Past Medical History: Please refer to HPI Past Surgical History: Please refer to HPI Family History Please refer to HPI Social History Please refer to HPI Hx Tobacco Use In Past Year?: Yes (2PPD. NONE IN LAST 3 DAYS) Smoking Status: Current Every Day Smoker Occupational Status: retired Immunizations History of Influenza Vaccine: Yes History of Tetanus Vaccine?: Yes Tetanus Immunization Date: Feb 22, 2004 History of Pneumococcal: Yes Pneumococcal Date: Feb 21, 2007 History of Hepatitis B Vaccine: No History of MDRO History of MDRO: No Allergies Coded Allergies: No Known Allergies (Verified , 03/28/17) Current Medications Reported Home Medications Medications Dose Route/Sig Max Daily Dose Days Date Category Vitamin D3 (Cholecalciferol) 1,000 Unit Tab 1 Tab PO DAILY 03/28/17 Reported Novolin 70/30 (Insulin Human Isoph/Insulin Regular) Inj 95 Units SC BID 03/28/17 Reported Zestoretic 20MG/25MG (HCTZ/Lisinopril) Tab 1 Tab PO DAILY 03/28/17 Reported Lipitor (Atorvastatin Calcium) 40 Mg Tab 40 Mg PO DAILY 03/28/17 Reported Aspirin Ec (Aspirin) 81 Mg Tab 81 Mg PO DAILY 03/28/17 Reported Physical Physical Exam Vital Signs: Date Time Temp Pulse Resp B/P (MAP) Pulse Ox O2 Delivery O2 Flow Rate FiO2 03/29/17 16:00 Nasal Cannula 4.0 03/29/17 15:12 36.7 123 26 108/56 (73) 92 Nasal Cannula 4.0 03/29/17 15:00 101 16 95 Nasal Cannula 4.0 03/29/17 12:00 Nasal Cannula 4.0 03/29/17 11:15 36.5 103 18 133/73 (93) Nasal Cannula 03/29/17 11:13 99 16 95 Nasal Cannula 4.0 03/29/17 08:00 Nasal Cannula 4.0 03/29/17 08:00 36.5 66 20 115/74 (88) 96 Room Air 03/29/17 07:21 111 16 99 Nasal Cannula 4.0 03/29/17 04:00 97 Nasal Cannula 4.0 03/29/17 02:37 93 16 98 Nasal Cannula 4.0 03/29/17 02:00 36.2 104 16 151/74 03/29/17 02:00 36.2 104 20 151/74 98 Nasal Cannula 4.0 03/29/17 00:23 90 22 148/89 96 Nasal Cannula 4.0 03/28/17 23:00 91 20 148/103 95 Nasal Cannula 4.0 03/28/17 22:09 102 03/28/17 21:38 69 22 162/71 96 Nasal Cannula 4.0 03/28/17 20:30 95 20 127/84 97 Nasal Cannula 3.0 03/28/17 18:34 83 03/28/17 18:30 85 24 168/76 96 Nasal Cannula 3.0 03/28/17 18:10 95 Nasal Cannula 3.0 03/28/17 17:19 89 Room Air 03/28/17 17:18 Nasal Cannula 2.0 03/28/17 17:14 36.3 102 26 145/68 89 Room Air General Appearance: other (Obese male in mild respiratory distress tri-poding during our conversation) Head: NORMOCEPHALIC, ATRAUMATIC Eyes: PERRLA, NO DISCHARGE, EOMI, SCLERAE NORMAL ENT: NORMAL EAR EXAM, NORMAL NASAL EXAM, NORMAL MOUTH EXAM, NORMAL THROAT EXAM , other (Mallampati 2) Neck: other (Arch diameter short neck) Respiratory: other (Decreased breath sounds globally/ultrasonic evaluation shows minimal pleural effusion on the right side) Abdomen: other (Obese and distended but no rebound positive bowel sounds) Genitourinary - Male: EXTERNAL GENITALIA NORMAL Back: NORMAL INSPECTION, NO MIDLINE TENDERNESS, NO CVA TENDERNESS, NO PARAVERTEBRAL TTP Upper Extremities: NO EDEMA, NO DEFORMITY, NORMAL ROM Lower Extremities: edema, other (Bilateral lower extremity stasis dermatitis) Edema: Bilateral LE (1+) Pulses: carotid (R) (2+), carotid (L) (2+), dorsalis pedis (R) (1+), dorsalis pedis (L) (1+) Neuro: ALERT, ORIENTED x 3, NORMAL MOTOR EXAM, NORMAL SENSATION, NORMAL CEREBELLAR EXAM Reflexes: biceps (R) (2+), bicpes (L) (2+), patellar (R) (2+), patellar (L) (2+ ), achilles (R) Babinski Testing: right (downgoing), left (downgoing) Psychiatric: NORMAL AFFECT, NO SUICIDAL IDEATION Diagnostics Labs Results Past 24 Hours Test 03/28/17 18:16 03/28/17 18:18 03/29/17 02:32 03/29/17 02:33 Range/Units White Blood Count 6.94 4.8-10.8 K/uL Red Blood Count 3.92 4.7-6.1 M/uL Hemoglobin 12.5 14.0-18.0 g/dL Hematocrit 36.6 42-52 % Mean Corpuscular Volume 93.4 80-100 fL Mean Corpuscular Hemoglobin 31.9 25-34 pg Mean Corpuscular Hemoglobin Concent 34.2 32-36 g/dl Platelet Count 180 130-400 K/uL Mean Platelet Volume 9.1 7.4-10.4 fL Neutrophils (%) (Auto) 76.8 % Lymphocytes (%) (Auto) 11.7 % Monocytes (%) (Auto) 9.2 % Eosinophils (%) (Auto) 1.6 % Basophils (%) (Auto) 0.6 % Neutrophils # (Auto) 5.33 1.4-6.5 K/uL Lymphocytes # (Auto) 0.81 1.2-3.4 K/uL Monocytes # (Auto) 0.64 0.11-0.59 K/uL Eosinophils # (Auto) 0.11 0-0.5 K/uL Basophils # (Auto) 0.04 0-0.2 K/uL RDW Standard Deviation 44.3 36.4-46.3 fL RDW Coefficient of Variation 13.0 11.5-14.5 % Immature Granulocyte % (Auto) 0.1 % Immature Granulocyte # (Auto) 0.01 0.00-0.02 K/uL Prothrombin Time 11.1 9.0-12.0 SECONDS Prothromb Time International Ratio 1.1 0.9-1.1 Activated Partial Thromboplast Time 25.6 21.0-31.0 SECONDS Partial Thromboplastin Ratio 1.0 Sodium Level 132 136-145 mmol/L Potassium Level 4.6 3.5-5.1 mmol/L Chloride Level 94 98-107 mmol/L Carbon Dioxide Level 32 21-32 mmol/L Anion Gap 6.0 3-11 mmol/L Blood Urea Nitrogen 30 7-18 mg/dl Creatinine 1.51 0.60-1.40 mg/dl Est Creatinine Clear Calc Drug Dose 57.4 ml/min Estimated GFR () 51.6 Estimated GFR (Non- 44.5 BUN/Creatinine Ratio 19.9 10-20 Random Glucose 389 70-99 mg/dl Calcium Level 9.1 8.5-10.1 mg/dl Total Bilirubin 0.6 0.2-1 mg/dl Aspartate Amino Transf (AST/SGOT) 24 15-37 U/L Alanine Aminotransferase (ALT/SGPT) 31 12-78 U/L Alkaline Phosphatase 145 45-117 U/L Total Creatine Kinase 99 39-308 U/L Creatine Kinase MB 2.8 0.5-3.6 ng/ml Creatine Kinase MB Ratio 2.8 0-3.0 Troponin I 0.203 0-0.045 ng/ml Pro-B-Type Natriuretic Peptide 224 0-900 pg/ml Total Protein 7.7 6.4-8.2 gm/dl Albumin 3.4 3.4-5.0 gm/dl Globulin 4.3 2.5-4.0 gm/dl Albumin/Globulin Ratio 0.8 0.9-2 Beta-Hydroxybutyric Acid 0.95 0.2-2.81 mg/dL Venous Blood pH 7.32 7.36-7.41 Venous Blood Partial Pressure CO2 64 38.0-50.0 mmHg Venous Blood Partial Pressure O2 46 mmHg Venous Blood HCO3 33 mmol/L Venous Blood Oxygen Saturation 73.9 % Venous Blood Base Excess 4.8 mEq/L Bedside Glucose 436 432 70-99 mg/dl Test 03/29/17 06:09 03/29/17 07:59 03/29/17 11:50 03/29/17 11:53 Range/Units White Blood Count 7.52 4.8-10.8 K/uL Red Blood Count 4.04 4.7-6.1 M/uL Hemoglobin 12.6 14.0-18.0 g/dL Hematocrit 38.6 42-52 % Mean Corpuscular Volume 95.5 80-100 fL Mean Corpuscular Hemoglobin 31.2 25-34 pg Mean Corpuscular Hemoglobin Concent 32.6 32-36 g/dl Platelet Count 170 130-400 K/uL Mean Platelet Volume 9.3 7.4-10.4 fL Neutrophils (%) (Auto) 93.8 % Lymphocytes (%) (Auto) 4.5 % Monocytes (%) (Auto) 1.2 % Eosinophils (%) (Auto) 0.1 % Basophils (%) (Auto) 0.1 % Neutrophils # (Auto) 7.05 1.4-6.5 K/uL Lymphocytes # (Auto) 0.34 1.2-3.4 K/uL Monocytes # (Auto) 0.09 0.11-0.59 K/uL Eosinophils # (Auto) 0.01 0-0.5 K/uL Basophils # (Auto) 0.01 0-0.2 K/uL RDW Standard Deviation 46.2 36.4-46.3 fL RDW Coefficient of Variation 13.2 11.5-14.5 % Immature Granulocyte % (Auto) 0.3 % Immature Granulocyte # (Auto) 0.02 0.00-0.02 K/uL Sodium Level 132 136-145 mmol/L Potassium Level 4.8 3.5-5.1 mmol/L Chloride Level 96 98-107 mmol/L Carbon Dioxide Level 30 21-32 mmol/L Anion Gap 6.0 3-11 mmol/L Blood Urea Nitrogen 31 7-18 mg/dl Creatinine 1.61 0.60-1.40 mg/dl Est Creatinine Clear Calc Drug Dose 52.4 ml/min Estimated GFR () 47.8 Estimated GFR (Non- 41.2 BUN/Creatinine Ratio 19.2 10-20 Random Glucose 321 70-99 mg/dl Calcium Level 9.0 8.5-10.1 mg/dl Troponin I 0.120 0.099 0-0.045 ng/ml Beta-Hydroxybutyric Acid 1.01 0.2-2.81 mg/dL Bedside Glucose 294 297 70-99 mg/dl Pro-B-Type Natriuretic Peptide 200 0-900 pg/ml Diagnostic Radiology Chest x-ray: Right upper lobe infiltrative mass with right costophrenic blunting CTA: No pulmonary emboli but large right-sided suprahilar mass with extensive mediastinal invagination, notable 2L adenopathy with small right pleural effusion EKG EKG: Normal sinus rhythm rate 87 poor waveforms Impression Assessment and Plan 76-year-old male admitted for acute on chronic respiratory insufficiency and found to have a large right-sided mediastinal mass: 1. Mediastinal Mass: The most obvious diagnosis for this patient is primary lung carcinoma and he is to undergo workup by Dr. Abdirahman Davenport. Prior to any intervention I suggest we get a cardiology clearance as the patient does have a long history of diabetes, hypertension, smoking and did have some mild troponin leaks with his associated hypoxemia. 2. COPD: Patient artery has a diagnosis of COPD with pulmonary function study performed 05/23/2010 and an FEV1 of 65% at that time. Via ATS standards that is considered moderate but as the patient continued to smoke his disease could be much more severe. Patient is currently being treated with methylprednisolone 40 mg Q8 hours as well as DuoNeb q.i.d.. We should initiate inhaler regimen for training purposes on this patient during his hospital admission with Symbicort 160/4.5 2 puffs b.i.d. and Spiriva 2 puffs daily. This will cover the corticosteroid, LAMA and LABA components of chronic COPD therapy. The patient does not have clinical history suggestive of chronic bronchiectasis though other medications such as Daliresp are not indicated at this time. Prior to the patient's discharge I also suggest we perform a 2 step oxygen evaluation. 3. Sleep Apnea: The patient has a clinical history as well as a body habitus suggestive of sleep apnea. His VBG if calculated to correct to an ABG does have an estimated PA CO2 53. Medicare does not allow us to initiate CPAP and discharge the patient on this device. But it would allow us to initiate BiPAP if the patient meets 2 qualifications. One a nocturnal oximetry study on 2 liters of oxygen or less with an episode of desaturation of 88% for 5 minutes or greater. Also the patient would have to have an awake ABG with a PaCO2 of 52 or greater on prescribed oxygen.
[2017-03-29] MEDS ORDERED: PHARMACY GLYCEMIC MGMT CONSULT SCH (17:59)
--- NOTE | 2017-03-29 19:26 | Pharmacy Progress Note ---
Glycemic Control Intl Consult Date of Service Mar 29, 2017. Scope Glycemic Pharmacist consulted by Dr Tonja Sparrow on 03/29/17 for glycemic control and to write orders per formerly [facility] inpatient glycemic control protocol Objective Weight (Kilograms): 131.200 Accuchecks BSG (last 24hrs): Test 03/29/17 02:32 03/29/17 02:33 03/29/17 06:09 03/29/17 07:59 Bedside Glucose 436 mg/dl (70-99) 432 mg/dl (70-99) 294 mg/dl (70-99) Random Glucose 321 mg/dl (70-99) Test 03/29/17 11:50 03/29/17 17:24 Bedside Glucose 297 mg/dl (70-99) 417 mg/dl (70-99) Laboratory Data (last 24hrs) Test 03/29/17 06:09 Anion Gap 6.0 mmol/L BUN/Creatinine Ratio 19.2 Blood Urea Nitrogen 31 mg/dl Creatinine 1.61 mg/dl Potassium Level 4.8 mmol/L Sodium Level 132 mmol/L White Blood Count 7.52 K/uL Red Blood Count 4.04 M/uL Hemoglobin 12.6 g/dL Hematocrit 38.6 % Mean Corpuscular Volume 95.5 fL Mean Corpuscular Hemoglobin 31.2 pg Mean Corpuscular Hemoglobin Concent 32.6 g/dl Platelet Count 170 K/uL Mean Platelet Volume 9.3 fL Neutrophils (%) (Auto) 93.8 % Lymphocytes (%) (Auto) 4.5 % Monocytes (%) (Auto) 1.2 % Eosinophils (%) (Auto) 0.1 % Basophils (%) (Auto) 0.1 % Neutrophils # (Auto) 7.05 K/uL Lymphocytes # (Auto) 0.34 K/uL Monocytes # (Auto) 0.09 K/uL Eosinophils # (Auto) 0.01 K/uL Basophils # (Auto) 0.01 K/uL HbA1c ? Recent Pertinent Medications Outpatient Anti-diabetic Regimen: * Novolin 70/30 95 units SQ BID * A1c = 7.7 % 11/05/16 The patient is currently receiving: * Basal insulin: Lantus 65 units every 12 hours * Correctional Insulin: Novolog Correction per scale ACHS Goal Range: Low 120 mg/dL - High 160 mg/dL Correction Factor: 10 mg/dL/unit * Prandial insulin: Per carb ratio of 1 unit per 6 grams CHO consumed Risk Factors for Insulin Resistance: * Steroids: Solu-Medrol 40mg IV Q 8 hours * Diet: ordered T2DM / AHA diet; patient did eat both breakfast and lunch today ; will be NPO after midnight tonight Assessment & Plan ASSESSMENT: 03/29/17 * Relatively insulin resistant type 2 diabetic admitted overnight for SOB. Level of glycemic control prior to admission uncertain however A1c 10/2016 showed acceptable control. * Lung mass identified on CT; surgery planned with Dr Davenport tomorrow * Glycemic control has been poor since admission despite aggressive basal/bolus SQ regimen. High dose steroids likely responsible for severe insulin resistance. * Out-pt regimen provided 190 units of insulin per day - current insulin doses are reflective of a stressed basal dose however correctional and prandial dose likely too low given steroids. * Given current BSG pattern, he appears to be both basal and prandial insulin deficient. Will increase basal doses another 20% and adjust correctional and prandial insulin doses so they are in line with one who would require 230+ units of insulin per day. * Will add BSG checks at 0000 + 0400 tonight and cover with Novolog SQ to allow for additional correction tonight. * Of note, patient has been wanting to leave the hospital and I am hesitant to start an insulin drip at this time for fear he may wish to leave prior to his procedure. I have discussed the case w/ Dr Sparrow. She has also discussed glycemic targets for surgery with Dr Davenport. He had stated that BSG needs to be less than 300 for procedure tomorrow. If glycemic targets cannot be met w/ increased SQ doses by 0400, the patient is to begin an insulin drip to maximize control prior to the procedure. PLAN FOR INPATIENT GLYCEMIC CONTROL: * Increasing Lantus to 80 units SQ BID; give additional 15 units SQ x 1 STAT * Changing correction factor to 7 mg/dl/unit * Changing carb ratio to 1 unit per 2 grams CHO consumed * Continuing goal range of Low 120 mg/dL - High 160 mg/dL * Check BSGs at 0000 + 0400 tonight and cover w/ Novolog as above * If BSG 300 or greater at 0400 tonight: starting IV insulin infusion per severe stress protocol * Goal Range 120 - 210 mg/dl * In the critical care setting, continuous IV insulin infusion has been shown to be the best method for achieving glycemic targets. * Please note that the plan above was derived based on current level of insulin resistance and hospital stress. These recommendations are appropriate for inpatient admission only. Plan of care upon discharge will need to be reassessed to avoid potential outpatient hypo/hyperglycemia. Thank you.
[2017-03-29] MEDS ORDERED: LORAZEPAM INJ 0.5 MG in SYRINGE 0.25 ML IV ONE (23:30)
[2017-03-30] VITALS (27 sets, daily range): BP systolic 109–256; BP diastolic -4–69; PULSE 75–104; TEMP 36.4–36.6; O2SAT 92–98; BMI 45.2
[2017-03-30] MEDS: INSULIN ASPART 100 UNITS/ML 3 ML PEN SC SCH ×6 (00:13→20:23)
[2017-03-30 05:42] LABS: HEMATOCRIT 34.4 % (42-52); HEMOGLOBIN 11.8 g/dL (14.0-18.0); IG# 0.03 K/uL (0.00-0.02); LYMPH % 3.6 %; LYMPH ABS # 0.56 K/uL (1.2-3.4); MEAN CELL VOLUME 92.7 fL (80-100); MEAN CORPUSCULAR HEMOGLOBIN 31.8 pg (25-34); MEAN CORPUSCULAR HGB CONC 34.3 g/dl (32-36); MONO % 3.3 %; MONO ABS # 0.52 K/uL (0.11-0.59); NEUT % 92.9 %; NEUT ABS # 14.56 K/uL (1.4-6.5); PLATELET COUNT 184 K/uL (130-400); RED CELL DISTRIBUTION WIDTH CV 13.1 % (11.5-14.5); RED CELL DISTRIBUTION WIDTH SD 44.3 fL (36.4-46.3); WHITE BLOOD COUNT 15.67 K/uL (4.8-10.8)
[2017-03-30 06:14] LABS: CALCIUM 8.6 mg/dl (8.5-10.1); CREATININE 1.87 mg/dl (0.60-1.40); POTASSIUM 4.4 mmol/L (3.5-5.1)
[2017-03-30] MEDS: ALBUT/IPRATROP 3MG/0.5MG NEB 3 ML VIAL INH SCH ×4 (07:00→19:50)
[2017-03-30 08:09] LABS: HEMOGLOBIN A1C 8.6 % (4.5-5.6)
[2017-03-30] MEDS: LISINOPRIL/HCTZ 20/25MG TAB PO SCH (08:41)
[2017-03-30] MEDS: NICOTINE 21 MG/24 HR TDSY TD SCH (08:41)
[2017-03-30] MEDS: ATORVASTATIN 40 MG TAB PO SCH (08:41)
--- NOTE | 2017-03-30 08:41 | SURGERY PROGRESS NOTE ---
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 I discussed this case with Dr. Taran Méndez and Dr. Méndez will be seeing him later today. Dr. Méndez or someone in the [facility] cardiology group will be seeing Mr. Jordan today. I planned on offering him a mediastinoscopy for a diagnosis today. The patient's blood sugars have been elevated. He is on an insulin drip now and they have dropped. On echocardiogram, it appears that he has grossly normal LV size and function.
[2017-03-30] MEDS: BUDESONIDE/FORMOTEROL FUMARATE 160/4.5 60 PUFFS/INHALER INH SCH ×2 (08:42→20:53)
[2017-03-30] MEDS: TIOTROPIUM BROMIDE 5 PUFF/90 MCG INH INH SCH (08:42)
[2017-03-30] MEDS: METHYLPREDNISOLONE IV 40 MG in SYRINGE 0 ML IV SCH ×2 (08:43→20:19)
--- NOTE | 2017-03-30 10:08 | CARDIOLOGY CONSULTATION ---
DATE OF CONSULTATION: 03/30/2017 PERTINENT HISTORY: Mr. Jordan is a 76-year-old white male admitted on the 29 of March with significant dyspnea and a newly diagnosed right upper lobe mass. This consultation was ordered as a preoperative evaluation. The patient claims he was in his usual state of marginal health until approximately 2-3 weeks ago when his chronic dyspnea became progressive. He explained that simple activities caused shortness of breath. At no time did he experience chest discomfort. He further denies syncope, presyncope, PND, orthopnea, palpitations, changes in lower extremity edema, and claudication. The patient has had 4 mildly elevated troponin levels since his presentation. CK is normal. The patient has never known of a cardiac event. He has never had a cardiac catheterization or stress test according to his report. The patient needs a sedentary lifestyle. He is able to climb 1 flight of stairs with some dyspnea. MEDICATIONS: Reviewed in detail. Currently, the patient is resting comfortably in bed without complaints. PAST MEDICAL HISTORY: 1. Hypertension. 2. Hypercholesterolemia. 3. Diabetes mellitus. 4. Diabetic neuropathy. 5. Diabetic nephropathy. 6. Chronic renal failure. 7. Hyperparathyroidism. 8. COPD. 9. Carotid disease. 10. Abdominal aortic aneurysm. 11. Colonic polyps. 12. Obesity. 13. Vitamin D deficiency. 14. Lumbar disk disease. 15. Appendectomy. 16. Bilateral intraocular lens implants. ALLERGIES: None. MEDICATIONS: 1. Lisinopril/HCTZ 20/25 one tablet daily. 2. Lipitor 40 mg at bedtime. 3. Symbicort 160/4.5 two puffs b.i.d. 4. Spiriva 2 puffs q.a.m. 5. Nicoderm patch 21 mg daily. 6. DuoNeb q.i.d. 7. Methylprednisolone 40 mg IV q. 8 hours. 8. Sliding scale insulin. SOCIAL HISTORY: The patient is currently retired. Admits to smoking 2 packs of cigarettes daily for the last 25 years, quit 1 week ago. Does not use alcohol. FAMILY HISTORY: No early coronary artery disease. REVIEW OF SYSTEMS: A 10-point review of systems is negative except for that described above. PHYSICAL EXAMINATION: GENERAL: This is an obese white male lying at 45 degrees without complaints. VITAL SIGNS: Blood pressure is 130/60 with a regular pulse of 75. Respiratory rate is 20. The patient is afebrile at 36.4 degrees Celsius. Saturation is 97% on 2 liters nasal cannula. HEENT: Negative. NECK: Supple with full carotid upstrokes. No obvious bruits. Jugular venous pressure is flat at 90 degrees. There is no thyromegaly. CARDIOVASCULAR: Reveals a regular rhythm with normal S1 and S2. Heart sounds are distant. No obvious murmurs. LUNGS: Note diffuse expiratory wheezes. No rales. ABDOMEN: Obese without bruits. EXTREMITIES: Reveal intact radial artery pulses bilaterally. 2+ pedal and 1+ pretibial edema noted bilaterally. Lichenification the skin noted in the pretibial regions bilaterally. LABORATORY DATA: CBC notes hemoglobin 11.8, hematocrit 34.4, white count 15.6, and platelet count 184,000. Electrolytes note a sodium of 129, potassium 4.4, chloride 94, bicarbonate 27, BUN 48, creatinine 1.8, and glucose 83. Initial troponin was 0.203 with followup values of 0.12, 0.099, and 0.063. CK was 99 with an MB fraction of 2.8. BNP was normal at 200. IMAGING DATA: EKG notes sinus rhythm without abnormalities. An echocardiogram was technically limited but noted overall normal left ventricular systolic function without obvious wall motion abnormality. Chest x-ray notes a right upper lobe mass. CT of the chest confirmed the apical mass on the right with extensive mediastinal lymphadenopathy and a right-sided pleural effusion. IMPRESSION: Mr. Jordan was admitted with dyspnea and a newly diagnosed right upper lobe mass which likely represents malignancy. He is scheduled for mediastinoscopy with Dr. Davenport later today. Although he does have mildly elevated troponins, he has no history of exertional angina pectoris. Further outcome is normal EKG and his echocardiogram notes normal left ventricle systolic function. He is an acceptable cardiac risk for surgery without further cardiac testing. PLAN: 1. Acceptable cardiac risk for surgery. 2. Further recommendations depending on his clinical course.
[2017-03-30] MEDS ORDERED: INSULIN GLARGINE SC SCH (11:00)
[2017-03-30] MEDS ORDERED: NURSING VERBAL MED ORDER ONE ×3 (11:00→17:45)
[2017-03-30] MEDS ORDERED: SUCCINYLCHOLINE CHLORIDE 20 MG/ML 10 ML VIAL IV ONE ×2 (12:20→15:36)
[2017-03-30] MEDS ORDERED: PROPOFOL IV EMULSION 10 MG/ML 20 ML VIAL IV ONE ×3 (12:20→15:36)
[2017-03-30] MEDS ORDERED: ONDANSETRON INJ 2 MG/ML 2 ML VIAL ONE (12:20)
[2017-03-30] MEDS ORDERED: LIDOCAINE HCL 2% 2 ML VIAL (20MG/ML) ONE (12:20)
[2017-03-30] MEDS ORDERED: DEXAMETHASONE SOD INJ 4 MG/ML VIAL ONE (12:20)
[2017-03-30] MEDS ORDERED: FENTANYL CITRATE INJ 50 MCG/1 ML 2 ML VIAL ONE ×3 (12:21→17:42)
[2017-03-30] MEDS ORDERED: MIDAZOLAM HCL 1 MG/ML 2ML VIAL ONE (13:26)
[2017-03-30] MEDS ORDERED: ALBUT/IPRATROP 3MG/0.5MG NEB 3 ML VIAL INH ONE (13:41)
[2017-03-30] MEDS ORDERED: CEFAZOLIN 2000MG IV PUSH 15 ML IV SCH (13:45)
[2017-03-30] MEDS ORDERED: CEFAZOLIN SOD 1 GM VIAL ONE ×2 (14:13→14:20)
[2017-03-30] MEDS ORDERED: CISATRACURIUM BESYLATE IV SOLN 2 MG/ML 10 ML VIAL ONE (14:24)
[2017-03-30] MEDS ORDERED: GLYCOPYRROLATE INJ 0.2 MG/ML VIAL ONE (14:28)
[2017-03-30] MEDS ORDERED: NEOSTIGMINE METHYLSULFATE 5 MG/5 ML SYR ONE (14:28)
[2017-03-30] MEDS ORDERED: PHENYLEPHRINE 100MCG/ML 5ML SYR ONE (14:30)
[2017-03-30] MEDS ORDERED: ESMOLOL HCL 10 MG/ML 10 ML VIAL ONE (14:48)
--- NOTE | 2017-03-30 14:58 | [facility] Post Operative Brief Note ---
Immediate Operative Summary Operative Date Mar 30, 2017. Pre-Operative Diagnosis Right Mediastinal Mass Post-Operative Diagnosis Poorly differentiated neoplastic process Procedure(s) Performed Video Mediastinoscopy Surgeon Dr. Davenport Pastor Surgeon(s) Suraj Burton PA-C Estimated Blood Loss 10 cc's Findings Consistent with Post-Op Diagnosis Specimens Frozen 1. R 4 left room at 1432 Drains None Anesthesia Type General Complication(s) none Disposition Disposition: Recovery Room / PACU
[2017-03-30] MEDS ORDERED: ALBUTEROL HFA INHALER 8.5 GM INH ONE (15:06)
[2017-03-30] MEDS ORDERED: OXYCODONE HCL IR 5 MG TAB (IMMEDIATE RELEASE) PO PRN (15:15)
--- NOTE | 2017-03-30 15:42 | OPERATIVE REPORT ---
DATE OF OPERATION: 03/30/2017 PREOPERATIVE DIAGNOSIS: Right hilar mass with mediastinal adenopathy. POSTOPERATIVE DIAGNOSIS: Poorly differentiated neoplastic process. PROCEDURE: Video mediastinoscopy. SURGEON: Dr. Davenport. NURSING ASSISTANT: Ishan Burton. (Mr. Ishan Burton was instrumental in performing this case. He was handling the camera as well as passed instruments and provided retraction. He closed the skin incisions at the conclusion of the case. INDICATION FOR PROCEDURE AND FINDINGS: This is a 76-year-old large man who has a long history of active cigarette smoking who came in with shortness of breath and was found to have a right hilar mass with marked mediastinal adenopathy. I took the patient to the operating room and offered him a video mediastinoscopy on 03/30/2017. He tolerated it well. I biopsied the right level 4 and level 2 nodes. 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 Dr. Ramon not felt that either represented a small cell lung carcinoma or very poorly differentiated lymphoma. We had adequate tissue. He tolerated it well with negligible blood loss. DESCRIPTION OF PROCEDURE: The patient brought to the operating room and laid in supine position. General anesthesia was induced and endotracheal intubation was performed with a single lumen tube. The table was positioned and the patient's neck was prepped. After appropriate timeout had been called and prophylactic antibiotics had been given, an incision was made one fingerbreadth above the sternal notch. It did have rather large strap muscles were divided in the midline. This brought me below the isthmus of the thyroid. I was able to get my video mediastinoscope without difficulty. There was marked fibrosis. I identified the innominate artery went below this gently. I came upon a very large mass in the right level 4 area and biopsied this. This had kim necrosis, but I biopsied a fairly good segment of this and a frozen section of this came back with a poorly differentiated neoplastic process. The vein was controlled with cautery. I did not get down to level 7 as the mass was large and it was difficult to maneuver around this. I did biopsy right level 2 node several times likewise this appeared to be involved with the process. There was no obvious overt bleeding, but I did place a piece of Surgicel and left in place as there was oozing. There was no further bleeding noted. A 3-0 Vicryl was used to reapproximate the strap muscles and then 4-0 Monocryl was used in a running subcuticular fashion and the wound edges. The patient tolerated it well. Blood loss was negligible. I attest to the content of the Intraoperative Record and any orders documented therein. Any exception s are noted below.
--- NOTE | 2017-03-30 16:23 | Anesthesiology Progress Note ---
Anesthesia Post Op Note Date & Time Mar 30, 2017 at 16:08 Vital Signs Pain Intensity: 0.0 Vital Signs Past 12 Hours Date Time Temp Pulse Resp B/P (MAP) Pulse Ox O2 Delivery O2 Flow Rate FiO2 03/30/17 13:40 100 18 94 Nasal Cannula 2.0 03/30/17 12:09 36.8 90 28 96/62 (73) 92 Nasal Cannula 2 03/30/17 11:08 93 18 96 Nasal Cannula 2.0 03/30/17 08:00 97 Nasal Cannula 2.0 03/30/17 07:33 36.4 93 20 129/63 (85) 97 Nasal Cannula 2.0 03/30/17 07:01 75 18 98 Nasal Cannula 2.0 03/30/17 05:35 Nasal Cannula 2.0 Notes Mental Status: alert / awake / arousable, participated in evaluation Pt Amnestic to Procedure: Yes Nausea / Vomiting: adequately controlled Pain: adequately controlled Airway Patency, RR, SpO2: stable & adequate BP & HR: stable & adequate Hydration State: stable & adequate Anesthetic Complications: no major complications apparent The patient is a 76 y/o male with a h/o COPD, + tob ( 120 pack years), R apical lung mass with extension into the mediastinum, CAD, HTN, DLD, AAA, IDDM, CKD, peripheral neuropathy and morbid obesity s/p mediastinoscopy with Dr. Davenport. Preoperatively, the patient was saturating 92% on 2L NC. Wheezing was heard on exam so a Duoneb was given. Because of the patient's significant pulmonary history I did inform him preoperatively that he was at high risk for requiring postoperative mechanical ventilation which he stated he understood and was agreeable with proceeding Intraoperatively, the patient was placed under GA for the procedure. During the procedure he was oxygenating 99-100% with an Fio02 of 0.9. He did require several boluses of phenylephrine to maintain his BP in the 110s-120s systolic. At the end of the procedure the patient's neuromuscular blockade was adequately reversed after four strong twitches were obtained. The patient was breathing at a rate of 18-20 breaths per minute with tidal volumes in the 400s at the end of the case prior to extubation. His end tidal C02 was in the 50s. The patient was following commands and appeared strong as he was able to sustain a head lift for 10 seconds. Several minutes after being extubated, however, the patient appeared to become more and more somnolent. His pulse ox also started dropping to the mid 80s on 10L of oxygen. The patient was therefore reintubated in the OR. His oxygenation immediately improved to 100% on an Fio2 of 1.0. He was taken to the ICU on full monitors and a full report was given to the ICU attending.
--- NOTE | 2017-03-30 16:41 | DIAGNOSTIC IMAGING REPORT ---
CHEST ONE VIEW PORTABLE CLINICAL HISTORY: mediastinoscopy postprocedural evaluation COMPARISON STUDY: 03/28/2017 FINDINGS: Endotracheal tube positioned 5.5 cm both adrienne. Right perimediastinal mass unchanged. No evidence pneumothorax. IMPRESSION: No evidence pneumothorax post mediastinoscopy. Endotracheal tube 5.5 cm above the adrienne. The above report was generated using voice recognition software. It may contain grammatical, syntax or spelling errors. Electronically signed by: Madi Irvin M.D. 03/30/2017 4:39 PM Dictated Date/Time: 03/30/2017 4:38 PM
--- NOTE | 2017-03-30 17:04 | Family Medicine Progress Note ---
Progress Note Date of Service Mar 30, 2017. Subjective Pt evaluation today including: conversation w/ patient, physical exam, chart review, lab review, review of inpatient medication list Pain: Patient denies pain today PO Intake: NPO from midnight for mediastinoscopy today Voiding: no voiding problems Patient states minimal change in his breathing today. He is complaining of being NPO and desires to "just get it done." He would like to leave hospital NADINE Constitutional: + weakness, No fever, No chills, No sweats, No weight loss, No fatigue, No problem reported Respiratory: + cough, + shortness of breath, + dyspnea on exertion, + dyspnea at rest Cardiovascular: No chest pain, No orthopnea, No PND, No edema, No claudication, No palpitations, No problem reported Abdomen: No pain, No nausea, No vomiting, No diarrhea, No constipation, No GI bleeding, No problem reported All Other Systems: Reviewed and Negative Medications Current Inpatient Medications Medications (Trade) Dose Ordered Sig/Michel Route Start Time Stop Time Status Last Admin Dose Admin Ioversol (Optiray 320) 100 ml UD PRN IV 03/28/17 20:00 04/01/17 19:59 Acetaminophen (Tylenol Tab) 650 mg Q4H PRN PO 03/28/17 23:45 04/27/17 23:44 Al Hydrox/Mg Hydrox/Simethicone (Maalox Max Susp) 15 ml Q4H PRN PO 03/28/17 23:45 04/27/17 23:44 Magnesium Hydroxide (Milk Of Magnesia Susp) 30 ml Q6H PRN PO 03/28/17 23:45 04/27/17 23:44 Polyethylene (Miralax Powder Packet) 17 gm DAILY PRN PO 03/28/17 23:45 04/27/17 23:44 Ondansetron HCl (Zofran Inj) 4 mg Q6H PRN IV 03/28/17 23:45 04/27/17 23:44 Albuterol/ Ipratropium (Duoneb) 3 ml QIDR INH 03/29/17 08:00 04/28/17 07:59 03/30/17 11:08 3 ML Aspirin (Ecotrin Tab) 81 mg DAILY PO 03/29/17 09:00 04/28/17 08:59 Future Hold 03/29/17 08:34 81 MG Atorvastatin Calcium (Lipitor Tab) 40 mg DAILY PO 03/29/17 09:00 3 08:59 03/29/17 08:34 40 MG HCTZ/Lisinopril (Prinzide 20-25MG Tab) 1 tab DAILY PO 03/29/17 09:00 04/28/17 08:59 03/29/17 08:34 1 TAB Insulin Aspart (novoLOG ASPART) SLIDING SCALE G... ACHS SC 03/29/17 04:00 04/28/17 03:59 03/30/17 17:16 3 UNITS Glucose (Glucose 40% Gel) 15-30 GRAMS 15 GRAMS... UD PRN PO 03/29/17 00:15 04/28/17 00:14 Glucose (Glucose Chew Tab) 4-8 Tablets 4 Tabl... UD PRN PO 03/29/17 00:15 04/28/17 00:14 Dextrose (Dextrose 50% 50ML Syringe) 25-50ML OF 50% DW IV FOR... UD PRN IV 03/29/17 00:15 04/28/17 00:14 Glucagon (Glucagon Inj) 1 mg UD PRN SQ 03/29/17 00:15 04/28/17 00:14 Nitroglycerin (Nitrostat Tab) 0.4 mg PRN PRN SL 03/29/17 00:15 04/28/17 00:14 Miscellaneous (Iv Fluids Completed) 1 ea PRN PRN N/A 03/29/17 00:30 03/29/18 00:29 Nicotine (Nicoderm Cq 21MG Patch) 1 patch QAM TD 03/29/17 09:00 04/28/17 08:59 Miscellaneous (Remove Nicoderm Patch) 1 ea HS N/A 03/29/17 21:00 04/28/17 20:59 Miscellaneous Information (Consult Glycemic Management Pharmacy) 1 ea UD N/A 03/29/17 17:59 04/28/17 17:58 Budesonide/ Formoterol Fumarate (Symbicort 160/ 4.5 Inh) 2 puffs BID INH 03/30/17 09:00 04/29/17 08:59 Tiotropium [place] (Spiriva Handihaler Inhaler) 2 puff QAM INH 03/30/17 09:00 04/29/17 08:59 Insulin Glargine (Lantus Vial) 60 units BID SC 03/30/17 11:00 04/29/17 10:59 Future hold Morphine Sulfate (MoRPHine SULFATE INJ) 2 mg Q3H PRN IV 03/30/17 15:15 04/13/17 15:14 Oxycodone HCl (Roxicodone Immediate Rel Tab) 5 mg Q4H PRN PO 03/30/17 15:15 04/13/17 15:14 Methylprednisolone Sodium Succinate 40 mg/Syringe 0.64 ml @ 1.5 mls/min Q4 IV 03/30/17 20:00 04/28/17 07:59 Ipratropium [place] (Atrovent Hfa Inhaler) 4 puffs QIDR INH 03/30/17 20:00 04/29/17 19:59 Albuterol (Ventolin Hfa Inhaler) 4 puffs QIDR INH 03/30/17 20:00 04/29/17 19:59 Fentanyl Citrate (Fentanyl Inj) 50 mcg Q2H PRN IV 03/30/17 18:30 04/13/17 18:29 Objective Vital Signs Date Time Temp Pulse Resp B/P (MAP) Pulse Ox O2 Delivery O2 Flow Rate FiO2 03/30/17 17:50 50 03/30/17 16:20 36.3 96 16 149/56 97 Mechanical Ventilator 50 03/30/17 16:15 36.4 96 16 132/62 (85) 97 Mechanical Ventilator 50 03/30/17 16:15 50 03/30/17 16:15 Mechanical Ventilator 50 03/30/17 16:11 50 03/30/17 16:10 96 16 132/62 97 Mechanical Ventilator 50 03/30/17 16:00 36.4 92 16 136/51 96 Mechanical Ventilator 50 03/30/17 13:40 100 18 94 Nasal Cannula 2.0 03/30/17 12:09 36.8 90 28 96/62 (73) 92 Nasal Cannula 2 03/30/17 11:08 93 18 96 Nasal Cannula 2.0 03/30/17 08:00 97 Nasal Cannula 2.0 03/30/17 07:33 36.4 93 20 129/63 (85) 97 Nasal Cannula 2.0 03/30/17 07:01 75 18 98 Nasal Cannula 2.0 03/30/17 05:35 Nasal Cannula 2.0 03/30/17 04:05 Nasal Cannula 03/30/17 03:57 36.5 91 20 152/65 (94) 94 Nasal Cannula 2.0 03/30/17 00:10 Nasal Cannula 2.0 03/29/17 23:31 36.9 102 20 120/66 (84) 93 4.0 03/29/17 20:23 Nasal Cannula 4.0 03/29/17 19:46 104 16 95 Nasal Cannula 4.0 03/29/17 19:43 36.4 107 20 128/67 (87) 94 Nasal Cannula 4.0 Physical Exam General Appearance: WD/WN, no apparent distress Eyes: normal inspection, PERRL, EOMI, sclerae normal ENT: hearing grossly normal, pharynx normal Neck: supple, no adenopathy, no carotid bruits, trachea midline Respiratory/Chest: chest non-tender, lungs clear, no respiratory distress, no accessory muscle use, + decreased breath sounds Cardiovascular: regular rate, rhythm, no gallop, no JVD, no murmur Abdomen: normal bowel sounds, non tender, soft, + distended Extremities: non-tender, normal inspection, no calf tenderness, + pedal edema 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, no motor/sensory deficits, alert, normal mood/affect, oriented x 3 Skin: normal color, warm/dry Laboratory Results Last Resulted 03/30/17 05:28 Red Blood Count 3.71, Mean Corpuscular Volume 92.7, Mean Corpuscular Hemoglobin 31.8, Mean Corpuscular Hemoglobin Concent 34.3, Mean Platelet Volume 9.0, Neutrophils (%) (Auto) 92.9, Lymphocytes (%) (Auto) 3.6, Monocytes (%) (Auto) 3.3, Eosinophils (%) (Auto) 0.0, Basophils (%) (Auto) 0.0, Neutrophils # (Auto) 14.56, Lymphocytes # (Auto) 0.56, Monocytes # (Auto) 0.52, Eosinophils # (Auto) 0.00, Basophils # (Auto) 0.00 Last Resulted 03/30/17 05:28 Assessment and Plan 76 y/o M PMH hypertension, CKD, AAA, CAD, uncontrolled COPD, tobacco abuse, T2DM. Here for dyspnea found to have lung mass on CT. Of note, pt has expressed a strong dislike to being in the hospital, but has been mostly amenable to all interventions and diagnostics thus far. 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 This mass extends across the midline and likely abuts the anterior aspect of the adrienne. This mass results in significant narrowing of several right upper lobe bronchi. There are multiple enlarged mediastinal lymph nodes. A 4 mm right lower lobe nodule is similar to CT of February 13, 2011 and is likely benign. - CT Surg consulted - Dr. Davenport took for mediastinoscopy today; tolerated procedure well; found to have poorly differentiated neoplastic process; had difficulties with extubation therefore moved to ICU. - Heparin hold. Acute on chronic SOB/COPD - Duonebs, solumedrol 40mg q8h - Pulmonology consult ordered - Not on home O2 - may need home oxygen; will 2 step prior to discharge - Need to assess heart function given orthopnea symptoms and weakness - Echo difficult to ascertain and BNP normal. CKD 3B - renally dose meds - baseline Nail Sticker since 2012 is 1.7-2.0. - Nail Sticker here is 1.87 as of 03/30. Hyperglycemia, T2DM - ISS, basal . Tightening control given solumedrol - Normally on 95 units Novolin 70/30 daily at home Hypertension - continue Lisinopril/HCTZ 20/25mg daily. Hyperlipidemia - continue atorvastatin 40mg daily CAD - continue ASA 81mg tab daily Tobacco abuse - nicotine 21 mg patch TD QAM. DVT ppx scd's as we hold heparin Code: full Dispo ICU post-surgical Discharge planning: home Resident Physician Supervision Note: I interviewed and examined the patient. Discussed with Dr. Roberts and agree with findings and plan as documented in the note. 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
--- NOTE | 2017-03-30 17:07 | Critical Care Consultation ---
Critical Care Consultation Date of Consultation: Mar 30, 2017. Attending Physician: Mason Angelo D.O. Reason for Consultation: Acute respiratory failure History of Present Illness This is 76-year-old gentleman with a history of active smoking, morbid obesity, history of coronary artery disease in the past, COPD, the patient is on home O2 , presented to the hospital with increasing shortness of breath, the patient underwent workup which revealed mediastinal mass as well as adenopathy with right upper lobe nodule as well. The patient was taken to the OR today for mediastinoscopy. The patient underwent the procedure uneventful. Postop the patient was extubated however he could not last along. The patient end up being 3 intubated due to acute respiratory failure. Although according to anesthesia note, the patient was fully awake following commands and answering questions prior to extubation. He was able also to flex his neck without difficulty. When the patient returned to the ICU, he was still intubated with #7 and have ET tube to 22 cm by the lips, he has no JVP, also saturation has been maintained at 97%. He is on 50% with assist control mode of with a rate of 16 / 550 and a PEEP of 5. The patient started to wake up having muscular fasciculation when I interviewed him. He was still dozing and not answering questions appropriately. End-tidal CO2 was measured approximately 55. Which is around his baseline of his PCO2. Patient did not have any review of system to give me at this point. Social History Smoking Status: Current Every Day Smoker Occupation Status: retired Allergies Coded Allergies: No Known Allergies (Verified , 03/28/17) Home Medications Scheduled Aspirin (Aspirin Ec), 81 MG PO DAILY Atorvastatin (Lipitor), 40 MG PO DAILY Cholecalciferol (Vitamin D3), 1 TAB PO DAILY Insulin Human Isophan/Regular (Novolin 70/30), 95 UNITS SC BID Lisinopril/Hctz (Zestoretic 20MG/25MG), 1 TAB PO DAILY Current Inpatient Medications Current Inpatient Medications Medications (Trade) Dose Ordered Sig/Michel Route Start Time Stop Time Status Last Admin Dose Admin Ioversol (Optiray 320) 100 ml UD PRN IV 03/28/17 20:00 04/01/17 19:59 Acetaminophen (Tylenol Tab) 650 mg Q4H PRN PO 03/28/17 23:45 04/27/17 23:44 Al Hydrox/Mg Hydrox/Simethicone (Maalox Max Susp) 15 ml Q4H PRN PO 03/28/17 23:45 04/27/17 23:44 Magnesium Hydroxide (Milk Of Magnesia Susp) 30 ml Q6H PRN PO 03/28/17 23:45 04/27/17 23:44 Polyethylene (Miralax Powder Packet) 17 gm DAILY PRN PO 03/28/17 23:45 04/27/17 23:44 Ondansetron HCl (Zofran Inj) 4 mg Q6H PRN IV 03/28/17 23:45 04/27/17 23:44 Albuterol/ Ipratropium (Duoneb) 3 ml QIDR INH 03/29/17 08:00 04/28/17 07:59 03/30/17 11:08 3 ML Aspirin (Ecotrin Tab) 81 mg DAILY PO 03/29/17 09:00 04/28/17 08:59 Future Hold 03/29/17 08:34 81 MG Atorvastatin Calcium (Lipitor Tab) 40 mg DAILY PO 03/29/17 09:00 04/28/17 08:59 03/29/17 08:34 40 MG HCTZ/Lisinopril (Prinzide 20-25MG Tab) 1 tab DAILY PO 03/29/17 09:00 04/28/17 08:59 03/29/17 08:34 1 TAB Methylprednisolone Sodium Succinate 40 mg/Syringe 0.64 ml @ 1.5 mls/min Q8H IV 03/29/17 08:00 04/28/17 07:59 03/30/17 08:43 1.5 MLS/MIN Insulin Aspart (novoLOG ASPART) SLIDING SCALE G... ACHS SC 03/29/17 04:00 04/28/17 03:59 03/29/17 20:58 21 UNITS Glucose (Glucose 40% Gel) 15-30 GRAMS 15 GRAMS... UD PRN PO 03/29/17 00:15 04/28/17 00:14 Glucose (Glucose Chew Tab) 4-8 Tablets 4 Tabl... UD PRN PO 03/29/17 00:15 04/28/17 00:14 Dextrose (Dextrose 50% 50ML Syringe) 25-50ML OF 50% DW IV FOR... UD PRN IV 03/29/17 00:15 04/28/17 00:14 Glucagon (Glucagon Inj) 1 mg UD PRN SQ 03/29/17 00:15 04/28/17 00:14 Nitroglycerin (Nitrostat Tab) 0.4 mg PRN PRN SL 03/29/17 00:15 04/28/17 00:14 Miscellaneous (Iv Fluids Completed) 1 ea PRN PRN N/A 03/29/17 00:30 03/29/18 00:29 Nicotine (Nicoderm Cq 21MG Patch) 1 patch QAM TD 03/29/17 09:00 04/28/17 08:59 Miscellaneous (Remove Nicoderm Patch) 1 ea HS N/A 03/29/17 21:00 04/28/17 20:59 Miscellaneous Information (Consult Glycemic Management Pharmacy) 1 ea UD N/A 03/29/17 17:59 04/28/17 17:58 Budesonide/ Formoterol Fumarate (Symbicort 160/ 4.5 Inh) 2 puffs BID INH 03/30/17 09:00 04/29/17 08:59 Tiotropium Era (Spiriva Handihaler Inhaler) 2 puff QAM INH 03/30/17 09:00 04/29/17 08:59 Insulin Glargine (Lantus Vial) 60 units BID SC 03/30/17 11:00 04/29/17 10:59 Future hold Morphine Sulfate (MoRPHine SULFATE INJ) 2 mg Q3H PRN IV 03/30/17 15:15 04/13/17 15:14 Oxycodone HCl (Roxicodone Immediate Rel Tab) 5 mg Q4H PRN PO 03/30/17 15:15 04/13/17 15:14 Review of Systems Not obtainable. Patient is sedated and vented. Physical Exam Date Time Temp Pulse Resp B/P (MAP) Pulse Ox O2 Delivery O2 Flow Rate FiO2 03/30/17 16:20 36.3 96 16 149/56 97 Mechanical Ventilator 50 03/30/17 16:11 50 03/30/17 16:10 96 16 132/62 97 Mechanical Ventilator 50 03/30/17 16:00 36.4 92 16 136/51 96 Mechanical Ventilator 50 03/30/17 13:40 100 18 94 Nasal Cannula 2.0 03/30/17 12:09 36.8 90 28 96/62 (73) 92 Nasal Cannula 2 03/30/17 11:08 93 18 96 Nasal Cannula 2.0 03/30/17 08:00 97 Nasal Cannula 2.0 03/30/17 07:33 36.4 93 20 129/63 (85) 97 Nasal Cannula 2.0 03/30/17 07:01 75 18 98 Nasal Cannula 2.0 03/30/17 05:35 Nasal Cannula 2.0 03/30/17 04:05 Nasal Cannula 03/30/17 03:57 36.5 91 20 152/65 (94) 94 Nasal Cannula 2.0 03/30/17 00:10 Nasal Cannula 2.0 03/29/17 23:31 36.9 102 20 120/66 (84) 93 4.0 03/29/17 20:23 Nasal Cannula 4.0 03/29/17 19:46 104 16 95 Nasal Cannula 4.0 03/29/17 19:43 36.4 107 20 128/67 (87) 94 Nasal Cannula 4.0 The patient vital signs remained stable except for slight elevation in blood pressure. No JVP. Anterior neck surgical wound incision is covered properly. Heart examination S1 and S2 regular rate and rhythm. Distant breath sounds bilaterally. Abdomen is obese but benign. In the periphery he had edema. Neurologically difficult to assess at this point. Laboratory Results Last 24 Hours Test 03/29/17 17:24 03/29/17 17:45 03/29/17 20:28 03/29/17 23:58 Bedside Glucose 417 mg/dl 303 mg/dl 297 mg/dl Troponin I 0.063 ng/ml Test 03/30/17 04:00 03/30/17 05:28 03/30/17 07:37 03/30/17 11:18 Bedside Glucose 78 mg/dl 83 mg/dl 90 mg/dl White Blood Count 15.67 K/uL Red Blood Count 3.71 M/uL Hemoglobin 11.8 g/dL Hematocrit 34.4 % Mean Corpuscular Volume 92.7 fL Mean Corpuscular Hemoglobin 31.8 pg Mean Corpuscular Hemoglobin Concent 34.3 g/dl Platelet Count 184 K/uL Mean Platelet Volume 9.0 fL Neutrophils (%) (Auto) 92.9 % Lymphocytes (%) (Auto) 3.6 % Monocytes (%) (Auto) 3.3 % Eosinophils (%) (Auto) 0.0 % Basophils (%) (Auto) 0.0 % Neutrophils # (Auto) 14.56 K/uL Lymphocytes # (Auto) 0.56 K/uL Monocytes # (Auto) 0.52 K/uL Eosinophils # (Auto) 0.00 K/uL Basophils # (Auto) 0.00 K/uL RDW Standard Deviation 44.3 fL RDW Coefficient of Variation 13.1 % Immature Granulocyte % (Auto) 0.2 % Immature Granulocyte # (Auto) 0.03 K/uL Sodium Level 129 mmol/L Potassium Level 4.4 mmol/L Chloride Level 94 mmol/L Carbon Dioxide Level 27 mmol/L Anion Gap 8.0 mmol/L Blood Urea Nitrogen 48 mg/dl Creatinine 1.87 mg/dl Est Creatinine Clear Calc Drug Dose 45.8 ml/min Estimated GFR () 39.9 Estimated GFR (Non- 34.4 BUN/Creatinine Ratio 25.4 Random Glucose 57 mg/dl Estimated Average Glucose 200 mg/dl Hemoglobin A1c 8.6 % Calcium Level 8.6 mg/dl Magnesium Level 2.1 mg/dl Assessment & Plan #1 acute respiratory failure, likely hypercapnic. #2 multifactorial cause of his failure to be extubated. Mostly related his body habitus was obstructive physiology and COPD with obstructive physiology as well. #3 I am concerned about extrinsic compression of one of his major airways, however in discussion with my colleagues, I will obtain a chest x-ray first and I will hold off on bronchoscopy at this point. #4 I would obtain an ABG on this patient. #5 we'll continue with his current inhalers. #6 I will change his steroids to every 4 hours 4 doses and then return back again to a scheduled every 6 hours. #7 continue with bronchodilators. #8 I will obtain an leak test prior to attempting extubation tonight. #9 if the patient continued to failed, I would not extubate him tonight and I will place him on Precedex drip. #10 case discussed in details with Dr. Connolly and Dr. Davenport. Discussed with the staff on rounds. CCT 60 minutes.
[2017-03-30] MEDS ORDERED: FENTANYL CITRATE INJ 50 MCG/1 ML 2 ML VIAL IV PRN ×2 (18:30→20:15)
--- NOTE | 2017-03-30 18:59 | SURGERY PROGRESS NOTE ---
DATE: 03/30/2017 Mr. Hoffman underwent a video mediastinoscopy. It appears he does have a malignancy. He was awakened and extubated, but he was still quite sleepy and so they reintubated him and moved to the ICU. I discussed this case in detail with Dr. Alcala. We will continue to follow on closely.
[2017-03-30] MEDS ORDERED: IPRATROPIUM BROMIDE HFA INHALER INH SCH (20:00)
[2017-03-30] MEDS ORDERED: ALBUTEROL HFA 8 GM INHALER INH SCH (20:00)
[2017-03-31] VITALS (23 sets, daily range): BP systolic 93–142; BP diastolic 49–80; PULSE 92–108; TEMP 36.4–36.9; O2SAT 85–96; BMI 45.3
[2017-03-31] MEDS ORDERED: INSULIN ASPART 100 UNITS/ML 3 ML PEN SC SCH
[2017-03-31] MEDS ORDERED: INSULIN ASPART 100 UNITS/ML 3 ML PEN SC STA (00:39)
[2017-03-31] MEDS: METHYLPREDNISOLONE IV 40 MG in SYRINGE 0 ML IV SCH ×4 (00:48→20:36)
[2017-03-31] MEDS ORDERED: INSULIN ASPART 100 UNITS/ML 3 ML PEN SC ONE (04:00)
[2017-03-31 05:50] LABS: HEMATOCRIT 35.3 % (42-52); HEMOGLOBIN 11.8 g/dL (14.0-18.0); IG# 0.04 K/uL (0.00-0.02); LYMPH % 2.6 %; LYMPH ABS # 0.39 K/uL (1.2-3.4); MEAN CELL VOLUME 94.6 fL (80-100); MEAN CORPUSCULAR HEMOGLOBIN 31.6 pg (25-34); MEAN CORPUSCULAR HGB CONC 33.4 g/dl (32-36); MONO % 2.7 %; NEUT % 94.4 %; NEUT ABS # 14.15 K/uL (1.4-6.5); PLATELET COUNT 172 K/uL (130-400); RED CELL DISTRIBUTION WIDTH CV 13.3 % (11.5-14.5); RED CELL DISTRIBUTION WIDTH SD 46.6 fL (36.4-46.3); WHITE BLOOD COUNT 14.98 K/uL (4.8-10.8)
[2017-03-31 06:18] LABS: CALCIUM 8.2 mg/dl (8.5-10.1); CREATININE 2.18 mg/dl (0.60-1.40); POTASSIUM 4.9 mmol/L (3.5-5.1)
[2017-03-31] MEDS: ALBUT/IPRATROP 3MG/0.5MG NEB 3 ML VIAL INH SCH ×4 (07:01→19:00)
[2017-03-31] MEDS: TIOTROPIUM BROMIDE 5 PUFF/90 MCG INH INH SCH (08:24)
[2017-03-31] MEDS: ATORVASTATIN 40 MG TAB PO SCH (08:26)
[2017-03-31] MEDS: LISINOPRIL/HCTZ 20/25MG TAB PO SCH (08:26)
[2017-03-31] MEDS: NICOTINE 21 MG/24 HR TDSY TD SCH (08:26)
[2017-03-31] MEDS: BUDESONIDE/FORMOTEROL FUMARATE 160/4.5 60 PUFFS/INHALER INH SCH ×2 (08:27→20:38)
[2017-03-31] MEDS: INSULIN ASPART 100 UNITS/ML 3 ML PEN SC SCH ×4 (08:42→20:37)
[2017-03-31] MEDS ORDERED: INSULIN GLARGINE SC SCH (09:00)
--- NOTE | 2017-03-31 11:47 | Progress Note ---
Progress Note Date of Service Mar 31, 2017. Progress Note Mr. Jordan was seen today. I had a long discussion with the patient's daughter last night and a very good friend today. 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 Immunohistochemical stains will be out later today. He is off the ventilator. He is sitting up in a chair on 3 L of O2. He has very little in the way of ecchymosis or swelling in his neck incision and very little pain. He does have rhonchi with some end expiratory wheezing. Otherwise I think he looks back to baseline as he was preoperatively. From my standpoint I think he is stable enough to be transferred back to the floor.
--- NOTE | 2017-03-31 12:18 | Family Medicine Progress Note ---
Progress Note Date of Service Mar 31, 2017. Subjective Pt evaluation today including: conversation w/ patient, physical exam, chart review, lab review, review of studies, review of inpatient medication list Pain: Patient denies pain today PO Intake: Tolerating well Voiding: no voiding problems Patient is in good spirits today, remains eager to leave hospital Constitutional: No fever, No chills, No sweats, No weight loss, No weakness , No fatigue, No problem reported Respiratory: + cough, + shortness of breath, + dyspnea on exertion, + dyspnea at rest Cardiovascular: No chest pain, No orthopnea, No PND, No edema, No claudication, No palpitations, No problem reported Abdomen: No pain, No nausea, No vomiting, No diarrhea, No constipation, No GI bleeding, No problem reported All Other Systems: Reviewed and Negative Medications Current Inpatient Medications Medications (Trade) Dose Ordered Sig/Michel Route Start Time Stop Time Status Last Admin Dose Admin Ioversol (Optiray 320) 100 ml UD PRN IV 03/28/17 20:00 04/01/17 19:59 Acetaminophen (Tylenol Tab) 650 mg Q4H PRN PO 03/28/17 23:45 04/27/17 23:44 Al Hydrox/Mg Hydrox/Simethicone (Maalox Max Susp) 15 ml Q4H PRN PO 03/28/17 23:45 04/27/17 23:44 Magnesium Hydroxide (Milk Of Magnesia Susp) 30 ml Q6H PRN PO 03/28/17 23:45 04/27/17 23:44 Polyethylene (Miralax Powder Packet) 17 gm DAILY PRN PO 03/28/17 23:45 04/27/17 23:44 Ondansetron HCl (Zofran Inj) 4 mg Q6H PRN IV 03/28/17 23:45 04/27/17 23:44 Albuterol/ Ipratropium (Duoneb) 3 ml QIDR INH 03/29/17 08:00 04/28/17 07:59 03/31/17 19:00 3 ML Aspirin (Ecotrin Tab) 81 mg DAILY PO 03/29/17 09:00 04/28/17 08:59 Future Hold 03/29/17 08:34 81 MG Atorvastatin Calcium (Lipitor Tab) 40 mg DAILY PO 03/29/17 09:00 04/28/17 08:59 03/31/17 08:26 40 MG HCTZ/Lisinopril (Prinzide 20-25MG Tab) 1 tab DAILY PO 03/29/17 09:00 04/28/17 08:59 03/31/17 08:26 1 TAB Glucose (Glucose 40% Gel) 15-30 GRAMS 15 GRAMS... UD PRN PO 03/29/17 00:15 04/28/17 00:14 Glucose (Glucose Chew Tab) 4-8 Tablets 4 Tabl... UD PRN PO 03/29/17 00:15 04/28/17 00:14 Dextrose (Dextrose 50% 50ML Syringe) 25-50ML OF 50% DW IV FOR... UD PRN IV 03/29/17 00:15 04/28/17 00:14 Glucagon (Glucagon Inj) 1 mg UD PRN SQ 03/29/17 00:15 04/28/17 00:14 Nitroglycerin (Nitrostat Tab) 0.4 mg PRN PRN SL 03/29/17 00:15 04/28/17 00:14 Miscellaneous (Iv Fluids Completed) 1 ea PRN PRN N/A 03/29/17 00:30 03/29/18 00:29 Nicotine (Nicoderm Cq 21MG Patch) 1 patch QAM TD 03/29/17 09:00 04/28/17 08:59 03/31/17 08:26 1 PATCH Miscellaneous (Remove Nicoderm Patch) 1 ea HS N/A 03/29/17 21:00 04/28/17 20:59 03/31/17 20:38 1 EA Miscellaneous Information (Consult Glycemic Management Pharmacy) 1 ea UD N/A 03/29/17 17:59 04/28/17 17:58 Budesonide/ Formoterol Fumarate (Symbicort 160/ 4.5 Inh) 2 puffs BID INH 03/30/17 09:00 04/29/17 08:59 03/31/17 20:38 2 PUFFS Tiotropium [place] (Spiriva Handihaler Inhaler) 2 puff QAM INH 03/30/17 09:00 04/29/17 08:59 03/31/17 08:24 2 PUFF Morphine Sulfate (MoRPHine SULFATE INJ) 2 mg Q3H PRN IV 03/30/17 15:15 04/13/17 15:14 Oxycodone HCl (Roxicodone Immediate Rel Tab) 5 mg Q4H PRN PO 03/30/17 15:15 04/13/17 15:14 Insulin Aspart (novoLOG ASPART) SLIDING SCALE G... ACHS SC 03/31/17 06:45 04/30/17 00:00 03/31/17 20:37 26 UNITS Methylprednisolone Sodium Succinate 40 mg/Syringe 0.64 ml @ 1.5 mls/min Q12H IV 03/31/17 09:00 03/31/17 21:01 03/31/17 20:36 1.5 MLS/MIN Insulin Glargine (Lantus Vial) see protocol BID SC 03/31/17 21:00 04/30/17 20:59 03/31/17 20:38 60 UNITS Insulin Aspart (novoLOG ASPART) SLIDING SCALE G... TODAY@0000,0400 SC 04/01/17 00:00 05/01/17 00:00 Prednisone (PredniSONE TAB) 50 mg DAILY PO 04/01/17 09:00 05/01/17 08:59 Sodium Chloride 500 ml @ 125 mls/hr Q4H ONCE IV 03/31/17 16:45 03/31/17 20:44 03/31/17 17:00 125 MLS/HR Objective Vital Signs Date Time Temp Pulse Resp B/P (MAP) Pulse Ox O2 Delivery O2 Flow Rate FiO2 03/31/17 19:00 108 18 95 Nasal Cannula 3.0 03/31/17 16:00 36.6 105 18 95/57 (70) 91 Nasal Cannula 3.0 Mask 03/31/17 16:00 Nasal Cannula 3.0 03/31/17 15:54 97 18 95 Nasal Cannula 3.0 03/31/17 14:00 96 18 125/72 (89) 91 Nasal Cannula 3.0 Mask 03/31/17 12:00 36.4 97 18 116/70 (85) 91 Nasal Cannula 3.0 Mask 03/31/17 12:00 Nasal Cannula 3.0 03/31/17 11:18 97 18 93 Nasal Cannula 3.0 03/31/17 10:00 92 24 138/54 (82) 94 Nasal Cannula 3.0 Mask 03/31/17 08:00 Nasal Cannula 03/31/17 08:00 36.4 98 18 123/60 (81) 95 Nasal Cannula 3.0 Mask 03/31/17 08:00 Nasal Cannula 3.0 03/31/17 07:01 100 18 95 Mask 3.0 03/31/17 05:01 100 127/49 (75) 94 03/31/17 04:02 95 141/54 (83) 96 03/31/17 04:01 36.4 96 142/54 (83) 96 03/31/17 04:00 94 Oxymask 3.0 03/31/17 03:01 99 123/80 (94) 95 Oxymask 3.0 03/31/17 03:00 97 137/53 (81) 93 Oxymask 3.0 03/31/17 02:01 92 132/51 (78) 86 Nasal Cannula 4.0 03/31/17 02:00 94 18 136/51 (79) 85 Nasal Cannula 4.0 03/31/17 01:01 99 126/55 (78) 93 Nasal Cannula 4.0 03/31/17 01:00 101 127/53 (77) 93 Nasal Cannula 4.0 03/31/17 00:01 97 142/57 (85) 94 Nasal Cannula 4.0 03/31/17 00:00 36.4 99 20 135/55 (81) 94 Nasal Cannula 4.0 03/30/17 23:59 92 Nasal Cannula 4.0 03/30/17 23:01 98 143/54 (83) 94 Nasal Cannula 4.0 03/30/17 23:00 95 148/58 (88) 92 Nasal Cannula 4.0 03/30/17 22:00 40 03/30/17 21:46 36.6 99 20 138/53 (81) 97 Mechanical Ventilator 50 03/30/17 21:30 94 20 (82) 95 150/55 03/30/17 21:01 99 20 138/53 (77) 95 144/53 03/30/17 20:57 40 Physical Exam General Appearance: WD/WN, no apparent distress Eyes: normal inspection, PERRL, EOMI, sclerae normal ENT: hearing grossly normal, pharynx normal Neck: supple, no adenopathy, no JVD, no carotid bruits, trachea midline Respiratory/Chest: chest non-tender, no respiratory distress, no accessory muscle use, + decreased breath sounds, + wheezing Cardiovascular: regular rate, rhythm, no edema, no gallop, no JVD, no murmur Abdomen: normal bowel sounds, non tender, soft, + distended (central obesity) Extremities: normal range of motion, non-tender, normal inspection, no pedal edema, no calf tenderness Neurologic/Psychiatric: drapery hemmer automatic II-XII nml as tested, no motor/sensory deficits, alert, normal mood/affect, oriented x 3 Skin: normal color, warm/dry, + pertinent finding (numerous seborrheic keratoses on trunk) Laboratory Results Last Resulted 03/31/17 05:17 Red Blood Count 3.73, Mean Corpuscular Volume 94.6, Mean Corpuscular Hemoglobin 31.6, Mean Corpuscular Hemoglobin Concent 33.4, Mean Platelet Volume 9.0, Neutrophils (%) (Auto) 94.4, Lymphocytes (%) (Auto) 2.6, Monocytes (%) (Auto) 2.7, Eosinophils (%) (Auto) 0.0, Basophils (%) (Auto) 0.0, Neutrophils # (Auto) 14.15, Lymphocytes # (Auto) 0.39, Monocytes # (Auto) 0.40, Eosinophils # (Auto) 0.00, Basophils # (Auto) 0.00 Last Resulted 03/31/17 05:17 Assessment and Plan 76 y/o M PMH hypertension, CKD, AAA, CAD, uncontrolled COPD, tobacco abuse, T2DM. Here for dyspnea found to have lung mass on CT. Of note, pt has expressed a strong dislike to being in the hospital, but has been mostly amenable to all interventions and diagnostics thus far. 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 This mass extends across the midline and likely abuts the anterior aspect of the adrienne. This mass results in significant narrowing of several right upper lobe bronchi. There are multiple enlarged mediastinal lymph nodes. A 4 mm right lower lobe nodule is similar to CT of February 13, 2011 and is likely benign. - CT Surg consulted - Dr. Davenport took for mediastinoscopy yesterday; tolerated procedure well; found to have poorly differentiated neoplastic process ; had difficulties with extubation therefore moved to ICU, now back to Tele status Acute on chronic SOB/COPD - Duonebs, solumedrol 40mg q8h; convert to PO steroids - Pulmonology consult appreciated - Not on home O2 - may need home oxygen; will 2 step prior to discharge - Need to assess heart function given orthopnea symptoms and weakness - Echo difficult to ascertain and BNP normal. CKD 3B - renally dose meds - baseline [employer] since 2012 is 1.7-2.0. - [employer] here is 2.18 as of 03/31. Hyperglycemia, T2DM - ISS, basal . Tightening control given solumedrol - Normally on 95 units Novolin 70/30 daily at home Hypertension - continue Lisinopril/HCTZ 20/25mg daily. Hyperlipidemia - continue atorvastatin 40mg daily CAD - continue ASA 81mg tab daily Tobacco abuse - nicotine 21 mg patch TD QAM. DVT ppx scd's as we hold heparin Code: full Dispo telel Discharge planning: home Resident Physician Supervision Note: I interviewed and examined the patient. Discussed with Dr. Roberts and agree with findings and plan as documented in the note. Any exceptions or clarifications are listed here: None Documented By: Mason Angelo feeling better off vent hopeful to get home tomorrow vitals noted nad breathing unlabored no pallor or icterus mixed respiratory failure, hypoxic/hypercapnic - off vent improved. likely to need home O2, continue inhaler regimen lung CA - awaiting pathology stable for transfer out of ICU - otherwise as above Resident Tracking Resident Involvement: Resident Care Provided Care Provided: Adult Hospital Medicine
--- NOTE | 2017-03-31 15:32 | Pharmacy Progress Note ---
Glycemic: Assessment & Plan Date of Service Mar 31, 2017. Assessment & Plan The patient did not receive any basal insulin yesterday until this morning's 60 unit dose. Steroids have been decreased to SM 40 Q12 (patient will still get 4 doses today) and scr. continues to ride. For this reason, I will provide a lantus scale for tonight's dose based on blood sugar and will tighten the correction factor and lower the goal range. Per the nurse, the patient ate only a small amount at lunch and experienced some emesis. * Basal insulin: Lantus scale q12 * Correctional Insulin: Novolog Correction per scale ACHS and 0000,0400 Goal Range: Low 120 mg/dL - High 150 mg/dL Correction Factor: 7 mg/dL/unit * Prandial insulin: Per carb ratio of 1 unit per 3 grams CHO consumed Pharmacy will continue to monitor patient daily and write orders per [facility] inpatient glycemic control protocol. Thanks. * Please note that the plan above was derived based on current level of insulin resistance and hospital stress. These recommendations are appropriate for inpatient admission only. Plan of care upon discharge will need to be reassessed to avoid potential outpatient hypo/hyperglycemia.
[2017-03-31] MEDS ORDERED: SODIUM CHLORIDE 0.9% 500ML 500 ML IV ONE (16:45)
--- NOTE | 2017-03-31 19:25 | Critical Care Progress Note ---
Critical Care Progress Note Date of Service Mar 31, 2017. Attending Dr. Alcala Subjective The patient was extubated overnight, appreciate my colleague Harman Zayas input in that regard. The patient denies any shortness of breath, he did have good sense of humor lateralis talking to him, he denies any cough or sputum production. No pain at the incision site. Objective Vital signs are stable, S1-S2 regular rate and rhythm, distant breath sounds bilaterally, abdomen is benign, edema in the periphery noted, surgical site appears clean. Assessment & Plan #1 acute respiratory failure secondary to COPD with hypercapnia. #2 advanced COPD, gold level III. #3 mediastinal mass, malignant, type of malignancy is still pending. #4 atelectasis of the left lower lobe. Plan: #1 continue with bronchodilators using long-acting and short-acting inhalers. #2 appreciate the extubation done by my colleague Harman Zayas overnight. #3 his labs and imaging reviewed personally. #4 I will stop fentanyl. #5 minimize sedatives. #6 smoking cessation counseling was provided to the patient. #7 oncology consult. #[address] Davenport input. #9 transfer the patient to regular floor. #10 discussed with the staff on rounds and details. CCT 35 minutes. Data Medications: Current Inpatient Medications Medications (Trade) Dose Ordered Sig/Michel Route Start Time Stop Time Status Last Admin Dose Admin Ioversol (Optiray 320) 100 ml UD PRN IV 03/28/17 20:00 04/01/17 19:59 Acetaminophen (Tylenol Tab) 650 mg Q4H PRN PO 03/28/17 23:45 04/27/17 23:44 Al Hydrox/Mg Hydrox/Simethicone (Maalox Max Susp) 15 ml Q4H PRN PO 03/28/17 23:45 04/27/17 23:44 Magnesium Hydroxide (Milk Of Magnesia Susp) 30 ml Q6H PRN PO 03/28/17 23:45 04/27/17 23:44 Polyethylene (Miralax Powder Packet) 17 gm DAILY PRN PO 03/28/17 23:45 04/27/17 23:44 Ondansetron HCl (Zofran Inj) 4 mg Q6H PRN IV 03/28/17 23:45 04/27/17 23:44 Albuterol/ Ipratropium (Duoneb) 3 ml QIDR INH 03/29/17 08:00 04/28/17 07:59 03/31/17 15:53 3 ML Aspirin (Ecotrin Tab) 81 mg DAILY PO 03/29/17 09:00 04/28/17 08:59 Future Hold 03/29/17 08:34 81 MG Atorvastatin Calcium (Lipitor Tab) 40 mg DAILY PO 03/29/17 09:00 04/28/17 08:59 03/31/17 08:26 40 MG HCTZ/Lisinopril (Prinzide 20-25MG Tab) 1 tab DAILY PO 03/29/17 09:00 04/28/17 08:59 03/31/17 08:26 1 TAB Glucose (Glucose 40% Gel) 15-30 GRAMS 15 GRAMS... UD PRN PO 03/29/17 00:15 04/28/17 00:14 Glucose (Glucose Chew Tab) 4-8 Tablets 4 Tabl... UD PRN PO 03/29/17 00:15 04/28/17 00:14 Dextrose (Dextrose 50% 50ML Syringe) 25-50ML OF 50% DW IV FOR... UD PRN IV 03/29/17 00:15 04/28/17 00:14 Glucagon (Glucagon Inj) 1 mg UD PRN SQ 03/29/17 00:15 04/28/17 00:14 Nitroglycerin (Nitrostat Tab) 0.4 mg PRN PRN SL 03/29/17 00:15 04/28/17 00:14 Miscellaneous (Iv Fluids Completed) 1 ea PRN PRN N/A 03/29/17 00:30 03/29/18 00:29 Nicotine (Nicoderm Cq 21MG Patch) 1 patch QAM TD 03/29/17 09:00 04/28/17 08:59 03/31/17 08:26 1 PATCH Miscellaneous (Remove Nicoderm Patch) 1 ea HS N/A 03/29/17 21:00 04/28/17 20:59 03/30/17 20:19 1 EA Miscellaneous Information (Consult Glycemic Management Pharmacy) 1 ea UD N/A 03/29/17 17:59 04/28/17 17:58 Budesonide/ Formoterol Fumarate (Symbicort 160/ 4.5 Inh) 2 puffs BID INH 03/30/17 09:00 04/29/17 08:59 03/31/17 08:27 2 PUFFS Tiotropium [place] (Spiriva Handihaler Inhaler) 2 puff QAM INH 03/30/17 09:00 04/29/17 08:59 03/31/17 08:24 2 PUFF Morphine Sulfate (MoRPHine SULFATE INJ) 2 mg Q3H PRN IV 03/30/17 15:15 04/13/17 15:14 Oxycodone HCl (Roxicodone Immediate Rel Tab) 5 mg Q4H PRN PO 03/30/17 15:15 04/13/17 15:14 Insulin Aspart (novoLOG ASPART) SLIDING SCALE G... ACHS SC 03/31/17 06:45 04/30/17 00:00 03/31/17 16:56 28 UNITS Methylprednisolone Sodium Succinate 40 mg/Syringe 0.64 ml @ 1.5 mls/min Q12H IV 03/31/17 09:00 03/31/17 21:01 Insulin Glargine (Lantus Vial) see protocol BID SC 03/31/17 21:00 04/30/17 20:59 Insulin Aspart (novoLOG ASPART) SLIDING SCALE G... TODAY@0000,0400 SC 04/01/17 00:00 05/01/17 00:00 Prednisone (PredniSONE TAB) 50 mg DAILY PO 04/01/17 09:00 05/01/17 08:59 Sodium Chloride 500 ml @ 125 mls/hr Q4H ONCE IV 03/31/17 16:45 03/31/17 20:44 03/31/17 17:00 125 MLS/HR I & O: 24-Hour Column 04/01/17 08:00 Output Total 75 ml Balance -75 ml Vital Signs: Date Time Temp Pulse Resp B/P (MAP) Pulse Ox O2 Delivery O2 Flow Rate FiO2 03/31/17 16:00 36.6 105 18 95/57 (70) 91 Nasal Cannula 3.0 Mask 03/31/17 16:00 Nasal Cannula 3.0 03/31/17 15:54 97 18 95 Nasal Cannula 3.0 03/31/17 14:00 96 18 125/72 (89) 91 Nasal Cannula 3.0 Mask 03/31/17 12:00 36.4 97 18 116/70 (85) 91 Nasal Cannula 3.0 Mask 03/31/17 12:00 Nasal Cannula 3.0 03/31/17 11:18 97 18 93 Nasal Cannula 3.0 03/31/17 10:00 92 24 138/54 (82) 94 Nasal Cannula 3.0 Mask 03/31/17 08:00 Nasal Cannula 03/31/17 08:00 36.4 98 18 123/60 (81) 95 Nasal Cannula 3.0 Mask 03/31/17 08:00 Nasal Cannula 3.0 03/31/17 07:01 100 18 95 Mask 3.0 03/31/17 05:01 100 127/49 (75) 94 03/31/17 04:02 95 141/54 (83) 96 03/31/17 04:01 36.4 96 142/54 (83) 96 03/31/17 04:00 94 Oxymask 3.0 03/31/17 03:01 99 123/80 (94) 95 Oxymask 3.0 03/31/17 03:00 97 137/53 (81) 93 Oxymask 3.0 03/31/17 02:01 92 132/51 (78) 86 Nasal Cannula 4.0 03/31/17 02:00 94 18 136/51 (79) 85 Nasal Cannula 4.0 03/31/17 01:01 99 126/55 (78) 93 Nasal Cannula 4.0 03/31/17 01:00 101 127/53 (77) 93 Nasal Cannula 4.0 03/31/17 00:01 97 142/57 (85) 94 Nasal Cannula 4.0 03/31/17 00:00 36.4 99 20 135/55 (81) 94 Nasal Cannula 4.0 03/30/17 23:59 92 Nasal Cannula 4.0 03/30/17 23:01 98 143/54 (83) 94 Nasal Cannula 4.0 03/30/17 23:00 95 148/58 (88) 92 Nasal Cannula 4.0 03/30/17 22:00 40 03/30/17 21:46 36.6 99 20 138/53 (81) 97 Mechanical Ventilator 50 03/30/17 21:30 94 20 (82) 95 150/55 03/30/17 21:01 99 20 138/53 (77) 95 144/53 03/30/17 20:57 40 03/30/17 20:30 98 23 (80) 95 146/55 03/30/17 20:05 40 03/30/17 20:01 97 20 133/55 (86) 95 155/58 03/30/17 19:50 50 03/30/17 19:30 99 20 (86) 96 156/58 03/30/17 19:25 50 03/30/17 19:25 Mechanical Ventilator 50 Laboratory Results: Last 24 Hours Test 03/30/17 19:44 03/30/17 22:13 03/30/17 23:58 03/31/17 04:18 Bedside Glucose 200 mg/dl 220 mg/dl 202 mg/dl Blood Gas Specimen Type ARTERIAL Blood Gas Sample Site Art Line Blood Gas Patient Temperature 36.6 Bedside Blood Gas pH (LAB) 7.30 Bedside Blood Gas pCO2 (LAB) 58 mmHg Bedside Blood Gas pO2 (LAB) 72 mmHg Bedside Blood Gas HCO3 (LAB) 29 meq/L Bedside Blood Gas Total CO2 30 mEq/l Bedside Blood Gas Base Excess (LAB) 2.0 meq/L Bedside Blood Gas O2 Saturation 92.0 % Oxygen Saturation (Pulse Oximetry) 94 % Alexei Test NOT PERFORMED Oxygen Delivery Device Ventilator Bedside FiO2 40 % Blood Gas PEEP 5 Blood Gas Pressure Support 10 Test 03/31/17 05:17 White Blood Count 14.98 K/uL Red Blood Count 3.73 M/uL Hemoglobin 11.8 g/dL Hematocrit 35.3 % Mean Corpuscular Volume 94.6 fL Mean Corpuscular Hemoglobin 31.6 pg Mean Corpuscular Hemoglobin Concent 33.4 g/dl Platelet Count 172 K/uL Mean Platelet Volume 9.0 fL Neutrophils (%) (Auto) 94.4 % Lymphocytes (%) (Auto) 2.6 % Monocytes (%) (Auto) 2.7 % Eosinophils (%) (Auto) 0.0 % Basophils (%) (Auto) 0.0 % Neutrophils # (Auto) 14.15 K/uL Lymphocytes # (Auto) 0.39 K/uL Monocytes # (Auto) 0.40 K/uL Eosinophils # (Auto) 0.00 K/uL Basophils # (Auto) 0.00 K/uL RDW Standard Deviation 46.6 fL RDW Coefficient of Variation 13.3 % Immature Granulocyte % (Auto) 0.3 % Immature Granulocyte # (Auto) 0.04 K/uL Sodium Level 128 mmol/L Potassium Level 4.9 mmol/L Chloride Level 92 mmol/L Carbon Dioxide Level 30 mmol/L Anion Gap 6.0 mmol/L Blood Urea Nitrogen 62 mg/dl Creatinine 2.18 mg/dl Est Creatinine Clear Calc Drug Dose 39.3 ml/min Estimated GFR () 33.1 Estimated GFR (Non- 28.6 BUN/Creatinine Ratio 28.5 Random Glucose 191 mg/dl Calcium Level 8.2 mg/dl
[2017-03-31] MEDS: INSULIN GLARGINE SC SCH (20:38)
[2017-04-01] VITALS (11 sets, daily range): BP systolic 113–157; BP diastolic 55–76; PULSE 76–122; TEMP 36.3–36.6; O2SAT 91–96
[2017-04-01] MEDS: INSULIN ASPART 100 UNITS/ML 3 ML PEN SC SCH ×6 (00:21→21:13)
[2017-04-01] MEDS: ALBUT/IPRATROP 3MG/0.5MG NEB 3 ML VIAL INH SCH ×5 (02:05→19:11)
[2017-04-01 05:28] LABS: MEAN CELL VOLUME 94.2 fL (80-100); MEAN CORPUSCULAR HEMOGLOBIN 31.4 pg (25-34); MEAN CORPUSCULAR HGB CONC 33.3 g/dl (32-36); PLATELET COUNT 170 K/uL (130-400); RED CELL DISTRIBUTION WIDTH CV 13.5 % (11.5-14.5); RED CELL DISTRIBUTION WIDTH SD 46.3 fL (36.4-46.3)
[2017-04-01 05:57] LABS: CALCIUM 8.2 mg/dl (8.5-10.1); CREATININE 2.43 mg/dl (0.60-1.40); POTASSIUM 4.4 mmol/L (3.5-5.1)
[2017-04-01] MEDS: NICOTINE 21 MG/24 HR TDSY TD SCH (07:59)
[2017-04-01] MEDS: LISINOPRIL/HCTZ 20/25MG TAB PO SCH (09:00)
[2017-04-01] MEDS ORDERED: SODIUM CHLORIDE 0.9% 1000ML 1,000 ML IV ONE (09:00)
[2017-04-01] MEDS: INSULIN GLARGINE SC SCH ×2 (09:02→21:13)
[2017-04-01] MEDS: TIOTROPIUM BROMIDE 5 PUFF/90 MCG INH INH SCH (09:06)
[2017-04-01] MEDS: ATORVASTATIN 40 MG TAB PO SCH (09:07)
[2017-04-01] MEDS: BUDESONIDE/FORMOTEROL FUMARATE 160/4.5 60 PUFFS/INHALER INH SCH ×2 (09:07→19:34)
[2017-04-01] MEDS ORDERED: NICO21DI35 TD ×2 (09:49)
[2017-04-01] MEDS ORDERED: SPRIN INH ×2 (09:49)
[2017-04-01] MEDS ORDERED: SYMIN INH ×2 (09:49)
[2017-04-01] MEDS ORDERED: PRED10TA PO (09:49)
--- NOTE | 2017-04-01 09:59 | Discharge Instructions ---
Discharge Instructions Date of Service Apr 01, 2017. Admission Reason for Admission: Lung Mass Discharge Discharge Diagnosis / Problem: COPD, Lung Mass Discharge Goals Goal(s): Decrease discomfort, Improve disease control, Learn about illness, Diagnostic testing, Prevent Disease Progression Activity Recommendations Activity Limitations: resume your previous activity May Resume Sexual Activity: when tolerated Driving or Machine Use: no limitations . Instructions / Follow-Up Instructions / Follow-Up You came to the hospital for worsening shortness of breath. We did a scan of your lungs which did show a mass. While we suspect cancer, we are still awaiting the biopsy results before having plan of what the next step is. To help you with your breathing, we treated you with inhalers and nebulizers. We also started you on steroids to reduce inflammation int he lungs. When you go home please do the following: - Please take Albuterol inhaler 2 puffs every 4 hours for the first 2 days, then scale back and take it every 4 hours ONLY NEEDED. If you become suddenly short of breath and 2-4 puffs every 20 minutes over an hour does not help, you need to contact a physician or go to the emergency department - Please start taking Spiriva and Symbicort daily as directed. These are known as 'controller' medications and will keep your symptoms at bay even when you are well. THESE MEDICATIONS NEED TO BE TAKEN DAILY, REGARDLESS OF WHETHER YOU ARE SICK OR WELL. On the day of your discharge, your kidneys were slightly under stress so we hydrated you and repeated testing which showed improvement. Because it has not help completely normalized, you will need to have repeat blood work in 2-3 days to ensure that this continues to improve. The results will be forwarded to your primary care provider. - We will give you Nicotine patches to help you. We are delighted that you have made the decision to quit smoking. - Your biopsy results are still pending. You will be contacted with the result. If you do not hear about the result in the next 1 week, please call our [facility] Office at: [phone] If your symptoms fail to improve, acutely worsen, please seek medical attention immediately by either calling your primary care provider or going to your nearest emergency department. Otherwise, please see your primary care provider within 1 week to ensure that your symptoms continue to improve. It was a pleasure to be involved in your care and we wish you all the best. Current Hospital Diet Patient's current hospital diet: Diabetes Type 2 Diet, AHA Diet (Heart Healthy) Discharge Diet Recommended Diet: AHA Diet (Heart Healthy), Diabetes Type 2 Diet Procedures Procedures Performed: Video Mediastinoscopy Pending Studies Studies pending at discharge: no Laboratory Results Hemoglobin A1c Test 03/30/17 05:28 Range/Units Estimated Average Glucose 200 mg/dl Hemoglobin A1c 8.6 H 4.5-5.6 % Medical Emergencies . Who to Call and When: Medical Emergencies: If at any time you feel your situation is an emergency, please call 911 immediately. . Non-Emergent Contact Non-Emergency issues call your: Primary Care Provider . . "Provider Documentation" section prepared by Abdiel Ortiz. . VTE Core Measure Inpt VTE Proph given/why not?: Unfractionated heparin SQ
[2017-04-01] MEDS ORDERED: VNTHFA/IN INH ×3 (10:00)
--- NOTE | 2017-04-01 10:36 | SURGERY PROGRESS NOTE ---
DATE: 04/01/2017 SUBJECTIVE: Mr. Jordan was seen today on 04/01/2017. He remained in the ICU where there was some blood pressure concerns. His rhythm has been stable. His oxygenation has been adequate on 4 liters. 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 He will be seen by oncology. His incision is clean. He looks as if he is back to baseline from preoperatively.
[2017-04-01] MEDS ORDERED: METHYLPREDNISOLONE IV 40 MG in SYRINGE 0 ML IV SCH (12:00)
--- NOTE | 2017-04-01 12:50 | Pharmacy Progress Note ---
Glycemic Control Progress Note Date of Service Apr 01, 2017. Scope Glycemic Pharmacist consulted for glycemic control to write orders per [facility] inpatient glycemic control protocol. Objective Accuchecks BSG (last 24hrs): Test 03/31/17 15:42 03/31/17 20:21 03/31/17 23:47 04/01/17 03:55 Bedside Glucose 206 mg/dl (70-99) 326 mg/dl (70-99) 296 mg/dl (70-99) 105 mg/dl (70-99) Test 04/01/17 04:42 04/01/17 06:37 04/01/17 11:03 Random Glucose 104 mg/dl (70-99) Bedside Glucose 150 mg/dl (70-99) 204 mg/dl (70-99) HbA1c: Test 03/30/17 05:28 Hemoglobin A1c 8.6 % (4.5-5.6) H Recent Pertinent Medications Outpatient Anti-diabetic Regimen: * Novolin 70/30 95 units SQ BID * A1c = 7.7 % 11/05/16 The patient is currently receiving: * Basal insulin: Lantus every 12 hours: 20units if less than 120; 40units if 120-180; 60units if above 180 * Correctional Insulin: Novolog Correction per scale ACHS Goal Range: Low 120 mg/dL - High 150 mg/dL Correction Factor: 7 mg/dL/unit * Prandial insulin: Per carb ratio of 1 unit per 3 grams CHO consumed Risk Factors for Insulin Resistance: * Steroids: Solu-Medrol 40mg IV Q 12 hours --> changed to Prednisone 50mg PO daily today * Diet: ordered T2DM / AHA diet Assessment & Plan ASSESSMENT: 03/29/17 * BSGs have ranged 105-326 over the last 24 hours with current SQ orders; received 213 units of SQ insulin (only ate 1 meal yesterday) * Fasting BSG 150 today with 120 units of Lantus on board and after receiving 21 units of Novolog correction overnight * Steroid dose is being reduced ~50% today - would expect improved insulin resistance over the next 24 hours * Post-prandial hyperglycemia was observed yesterday despite use of a CR of 1:3 ; I am hesitant to reduce this dose given yesterday's hyperglycemia. Perhaps this dose will perform better on the lower dose of steroids today PLAN FOR INPATIENT GLYCEMIC CONTROL: * Continue Lantus SQ BID per scale: 20 units if BSG less than 120; 40 units if BSG 120-180; 60 units if BSG above 180 * Continuing correction factor of 7 mg/dl/unit * Continuing carb ratio to 1 unit per 3 grams CHO consumed * Continuing goal range of Low 120 mg/dL - High 150 mg/dL * Check BSGs at 0000 + 0400 tonight and cover w/ Novolog as above * Add BSG check at 0200 tonight and cover w/ SQ Novolog as above if elevated * Please note that the plan above was derived based on current level of insulin resistance and hospital stress. These recommendations are appropriate for inpatient admission only. Plan of care upon discharge will need to be reassessed to avoid potential outpatient hypo/hyperglycemia. Thank you.
--- NOTE | 2017-04-01 14:31 | Pulmonology Progress Note ---
Pulmonary Progress Note Date of Service Apr 01, 2017. Attending Dr. Alcala Subjective The patient has been having tachypnea but he denies any shortness of breath, he developed bilateral diffuse wheezing, his respiratory status has been stable on 4 L of oxygen via nasal cannula. Apparently he does not use oxygen at home. Objective Physical exam on 04/01/2017, the patient has diffuse wheezing bilaterally, using abdominal muscles for respiration, surgical wound after mediastinoscopy appeared healing, no JVP, abdomen is obese, benign, CCE. Assessment & Plan #1 small cell lung CVA, extensive stage. #2 severe COPD, in exacerbation. #3 morbid obesity. #4 acute hypercapnic respiratory failure, resolved. The patient left with chronic hypercapnic respiratory failure. #5 postop mediastinoscopy. Plan: #1 change steroids to Solu-Medrol 40 mg IV every 6 hours. The patient is currently in exacerbation while on oral prednisone. #2 continue bronchodilators on a regular basis.prn. #3 oncology consult. #4 disposition plan to regular floor. #5 although the patient has a short run of wide-complex tachycardia overnight with 12 beats, this did not translate to a sustained tachyarrhythmia at this point. Patient can be watched on telemetry floor in that regard. #6 continue DVT and GI prophylaxis. #7 glucose control. Discussed with the staff on rounds and details, Data Medications: Current Inpatient Medications Medications (Trade) Dose Ordered Sig/Michel Route Start Time Stop Time Status Last Admin Dose Admin Ioversol (Optiray 320) 100 ml UD PRN IV 03/28/17 20:00 04/01/17 19:59 Acetaminophen (Tylenol Tab) 650 mg Q4H PRN PO 03/28/17 23:45 04/27/17 23:44 Al Hydrox/Mg Hydrox/Simethicone (Maalox Max Susp) 15 ml Q4H PRN PO 03/28/17 23:45 04/27/17 23:44 Magnesium Hydroxide (Milk Of Magnesia Susp) 30 ml Q6H PRN PO 03/28/17 23:45 04/27/17 23:44 Polyethylene (Miralax Powder Packet) 17 gm DAILY PRN PO 03/28/17 23:45 04/27/17 23:44 Ondansetron HCl (Zofran Inj) 4 mg Q6H PRN IV 03/28/17 23:45 04/27/17 23:44 Albuterol/ Ipratropium (Duoneb) 3 ml QIDR INH 03/29/17 08:00 04/28/17 07:59 04/01/17 11:14 3 ML Aspirin (Ecotrin Tab) 81 mg DAILY PO 03/29/17 09:00 04/28/17 08:59 Future Hold 03/29/17 08:34 81 MG Atorvastatin Calcium (Lipitor Tab) 40 mg DAILY PO 03/29/17 09:00 04/28/17 08:59 04/01/17 09:07 40 MG HCTZ/Lisinopril (Prinzide 20-25MG Tab) 1 tab DAILY PO 03/29/17 09:00 04/28/17 08:59 03/31/17 08:26 1 TAB Glucose (Glucose 40% Gel) 15-30 GRAMS 15 GRAMS... UD PRN PO 03/29/17 00:15 04/28/17 00:14 Glucose (Glucose Chew Tab) 4-8 Tablets 4 Tabl... UD PRN PO 03/29/17 00:15 04/28/17 00:14 Dextrose (Dextrose 50% 50ML Syringe) 25-50ML OF 50% DW IV FOR... UD PRN IV 03/29/17 00:15 04/28/17 00:14 Glucagon (Glucagon Inj) 1 mg UD PRN SQ 03/29/17 00:15 04/28/17 00:14 Nitroglycerin (Nitrostat Tab) 0.4 mg PRN PRN SL 03/29/17 00:15 04/28/17 00:14 Miscellaneous (Iv Fluids Completed) 1 ea PRN PRN N/A 03/29/17 00:30 03/29/18 00:29 Nicotine (Nicoderm Cq 21MG Patch) 1 patch QAM TD 03/29/17 09:00 04/28/17 08:59 03/31/17 08:26 1 PATCH Miscellaneous (Remove Nicoderm Patch) 1 ea HS N/A 03/29/17 21:00 04/28/17 20:59 03/31/17 20:38 1 EA Miscellaneous Information (Consult Glycemic Management Pharmacy) 1 ea UD N/A 03/29/17 17:59 3/20/18 17:58 Budesonide/ Formoterol Fumarate (Symbicort 160/ 4.5 Inh) 2 puffs BID INH 03/30/17 09:00 04/29/17 08:59 04/01/17 09:07 2 PUFFS Tiotropium [place] (Spiriva Handihaler Inhaler) 2 puff QAM INH 03/30/17 09:00 04/29/17 08:59 04/01/17 09:06 2 PUFF Morphine Sulfate (MoRPHine SULFATE INJ) 2 mg Q3H PRN IV 03/30/17 15:15 04/13/17 15:14 Oxycodone HCl (Roxicodone Immediate Rel Tab) 5 mg Q4H PRN PO 03/30/17 15:15 04/13/17 15:14 04/01/17 01:55 5 MG Insulin Aspart (novoLOG ASPART) SLIDING SCALE G... ACHS SC 03/31/17 06:45 04/30/17 00:00 04/01/17 12:16 15 UNITS Insulin Glargine (Lantus Vial) see protocol BID SC 03/31/17 21:00 04/30/17 20:59 04/01/17 09:02 20 UNITS Sodium Chloride 1,000 ml @ 125 mls/hr Q8H ONCE IV 04/01/17 09:00 04/01/17 16:59 04/01/17 09:07 125 MLS/HR Prednisone (PredniSONE TAB) 50 mg DAILY PO 04/02/17 09:00 05/02/17 08:59 Insulin Aspart (novoLOG ASPART) SLIDING SCALE G... TODAY@0200 ONCE SC 04/02/17 02:00 04/02/17 02:01 I & O: 24-Hour Column 04/02/17 07:59 Intake Total 484 ml Balance 484 ml Vital Signs: Date Time Temp Pulse Resp B/P (MAP) Pulse Ox O2 Delivery O2 Flow Rate FiO2 04/01/17 11:28 36.4 93 18 113/55 (74) 91 4.0 04/01/17 11:16 96 15 93 Nasal Cannula 4.0 04/01/17 08:00 Nasal Cannula 4.0 04/01/17 08:00 36.4 89 18 142/76 (98) 91 Nasal Cannula 4.0 Mask 04/01/17 07:43 91 18 94 Nasal Cannula 4.0 04/01/17 04:00 Nasal Cannula 4.0 04/01/17 03:49 36.6 100 20 147/71 (96) 95 Nasal Cannula 4.0 04/01/17 02:06 105 20 92 Nasal Cannula 4.0 04/01/17 00:00 Nasal Cannula 3.0 03/31/17 23:15 36.9 100 24 142/62 (88) 92 Nasal Cannula 3.0 03/31/17 20:01 36.7 108 22 93/59 (70) 94 Nasal Cannula 3.0 Mask 03/31/17 20:00 Nasal Cannula 3.0 03/31/17 19:00 108 18 95 Nasal Cannula 3.0 03/31/17 16:00 36.6 105 18 95/57 (70) 91 Nasal Cannula 3.0 Mask 03/31/17 16:00 Nasal Cannula 3.0 03/31/17 15:54 97 18 95 Nasal Cannula 3.0 Laboratory Results: Last 24 Hours Test 03/31/17 15:42 03/31/17 20:21 03/31/17 23:47 04/01/17 03:55 Bedside Glucose 206 mg/dl 326 mg/dl 296 mg/dl 105 mg/dl Test 04/01/17 04:42 04/01/17 06:37 04/01/17 11:03 White Blood Count 13.80 K/uL Red Blood Count 3.82 M/uL Hemoglobin 12.0 g/dL Hematocrit 36.0 % Mean Corpuscular Volume 94.2 fL Mean Corpuscular Hemoglobin 31.4 pg Mean Corpuscular Hemoglobin Concent 33.3 g/dl RDW Standard Deviation 46.3 fL RDW Coefficient of Variation 13.5 % Platelet Count 170 K/uL Mean Platelet Volume 9.0 fL Sodium Level 129 mmol/L Potassium Level 4.4 mmol/L Chloride Level 93 mmol/L Carbon Dioxide Level 29 mmol/L Anion Gap 7.0 mmol/L Blood Urea Nitrogen 87 mg/dl Creatinine 2.43 mg/dl Est Creatinine Clear Calc Drug Dose 35.3 ml/min Estimated GFR () 29.0 Estimated GFR (Non- 25.1 BUN/Creatinine Ratio 35.8 Random Glucose 104 mg/dl Calcium Level 8.2 mg/dl Bedside Glucose 150 mg/dl 204 mg/dl
[2017-04-01 16:36] LABS: CALCIUM 8.2 mg/dl (8.5-10.1); CREATININE 2.4 mg/dl (0.60-1.40); POTASSIUM 4.3 mmol/L (3.5-5.1)
--- NOTE | 2017-04-01 17:19 | Oncology Consultation ---
Oncology/Heme Consultation Date of Consultation: Apr 01, 2017. Attending Physician: Mason Angelo D.O. Reason for Consultation: Newly diagnosed small cell lung cancer History of Present Illness Mr. Jordan is a 76 year old man with a history of morbid obesity, heavy smoking (2 packs/day), diabetes, HTN, and hyperlipidemia. He has had slowly worsening shortness of breath for a few weeks now. He especially notices the difficulty breathing when he lays flat to sleep. It is relieved, at least in part, by sitting up and forward. He had imaging on admission that revealed a large mass in the right side of his mediastinum with enlarged nodes and a right pleural effusion. On 03/30, he underwent video mediastinoscopy with biopsy of the mass, which revealed small cell lung cancer. He is very anxious to leave, as he is uncomfortable and overwhelmed here. He lives alone, though his daughter lives nearby and assists him. He denies any pain, headaches, vision changes, nausea, vomiting, or weakness. Past Medical/Surgical History Medical Problems: (1) COPD (chronic obstructive pulmonary disease) Status: Acute (2) Hypoxia Status: Acute (3) Lung mass Status: Acute (4) SOB (shortness of breath) Status: Acute Social History Smoking Status: Current Every Day Smoker Occupation Status: retired Allergies Coded Allergies: No Known Allergies (Verified , 03/28/17) Home Medications Scheduled Albuterol Hfa (Ventolin Hfa), 2 PUFFS INH Q4H Aspirin (Aspirin Ec), 81 MG PO DAILY Atorvastatin (Lipitor), 40 MG PO DAILY Budesonide/Formoterol Fumarate (Symbicort 160-4.5 Mcg/Act), 2 PUFFS INH BID Cholecalciferol (Vitamin D3), 1 TAB PO DAILY Insulin Human Isophan/Regular (Novolin 70/30), 95 UNITS SC BID Lisinopril/Hctz (Zestoretic 20MG/25MG), 1 TAB PO DAILY Nicotine (Nicoderm Cq 21MG Patch), 1 PATCH TD DAILY Prednisone Tab (Prednisone), 10 MG PO UD Tiotropium [place] (Spiriva Handihaler), 2 PUFF INH QAM Current Inpatient Medications Current Inpatient Medications Medications (Trade) Dose Ordered Sig/Mcihel Route Start Time Stop Time Status Last Admin Dose Admin Ioversol (Optiray 320) 100 ml UD PRN IV 03/28/17 20:00 04/01/17 19:59 Acetaminophen (Tylenol Tab) 650 mg Q4H PRN PO 03/28/17 23:45 04/27/17 23:44 Al Hydrox/Mg Hydrox/Simethicone (Maalox Max Susp) 15 ml Q4H PRN PO 03/28/17 23:45 04/27/17 23:44 Magnesium Hydroxide (Milk Of Magnesia Susp) 30 ml Q6H PRN PO 03/28/17 23:45 04/27/17 23:44 Polyethylene (Miralax Powder Packet) 17 gm DAILY PRN PO 03/28/17 23:45 04/27/17 23:44 Ondansetron HCl (Zofran Inj) 4 mg Q6H PRN IV 03/28/17 23:45 04/27/17 23:44 Albuterol/ Ipratropium (Duoneb) 3 ml QIDR INH 03/29/17 08:00 04/28/17 07:59 04/01/17 14:35 3 ML Aspirin (Ecotrin Tab) 81 mg DAILY PO 03/29/17 09:00 04/28/17 08:59 Future Hold 03/29/17 08:34 81 MG Atorvastatin Calcium (Lipitor Tab) 40 mg DAILY PO 03/29/17 09:00 04/28/17 08:59 04/01/17 09:07 40 MG HCTZ/Lisinopril (Prinzide 20-25MG Tab) 1 tab DAILY PO 03/29/17 09:00 04/28/17 08:59 03/31/17 08:26 1 TAB Glucose (Glucose 40% Gel) 15-30 GRAMS 15 GRAMS... UD PRN PO 03/29/17 00:15 04/28/17 00:14 Glucose (Glucose Chew Tab) 4-8 Tablets 4 Tabl... UD PRN PO 03/29/17 00:15 04/28/17 00:14 Dextrose (Dextrose 50% 50ML Syringe) 25-50ML OF 50% DW IV FOR... UD PRN IV 03/29/17 00:15 04/28/17 00:14 Glucagon (Glucagon Inj) 1 mg UD PRN SQ 03/29/17 00:15 04/28/17 00:14 Nitroglycerin (Nitrostat Tab) 0.4 mg PRN PRN SL 03/29/17 00:15 04/28/17 00:14 Miscellaneous (Iv Fluids Completed) 1 ea PRN PRN N/A 03/29/17 00:30 03/29/18 00:29 Nicotine (Nicoderm Cq 21MG Patch) 1 patch QAM TD 03/29/17 09:00 04/28/17 08:59 03/31/17 08:26 1 PATCH Miscellaneous (Remove Nicoderm Patch) 1 ea HS N/A 03/29/17 21:00 04/28/17 20:59 03/31/17 20:38 1 EA Miscellaneous Information (Consult Glycemic Management Pharmacy) 1 ea UD N/A 03/29/17 17:59 04/28/17 17:58 Budesonide/ Formoterol Fumarate (Symbicort 160/ 4.5 Inh) 2 puffs BID INH 03/30/17 09:00 04/29/17 08:59 04/01/17 09:07 2 PUFFS Tiotropium [place] (Spiriva Handihaler Inhaler) 2 puff QAM INH 03/30/17 09:00 04/29/17 08:59 04/01/17 09:06 2 PUFF Morphine Sulfate (MoRPHine SULFATE INJ) 2 mg Q3H PRN IV 03/30/17 15:15 04/13/17 15:14 Oxycodone HCl (Roxicodone Immediate Rel Tab) 5 mg Q4H PRN PO 03/30/17 15:15 04/13/17 15:14 04/01/17 01:55 5 MG Insulin Aspart (novoLOG ASPART) SLIDING SCALE G... ACHS SC 03/31/17 06:45 04/30/17 00:00 04/01/17 12:16 15 UNITS Insulin Glargine (Lantus Vial) see protocol BID SC 03/31/17 21:00 04/30/17 20:59 04/01/17 09:02 20 UNITS Prednisone (PredniSONE TAB) 50 mg DAILY PO 04/02/17 09:00 05/02/17 08:59 Insulin Aspart (novoLOG ASPART) SLIDING SCALE G... TODAY@0200 ONCE SC 04/02/17 02:00 04/02/17 02:01 Review of Systems Constitutional: + fatigue Eyes: No worsening of vision Respiratory: + cough, + shortness of breath Cardiovascular: + orthopnea, No chest pain Abdomen: No pain, No nausea, No vomiting Musculoskeletal: No joint pain, No muscle pain Hematologic / Lymphatic: No abnormal bleeding/bruising, No night sweats Physical Exam Date Time Temp Pulse Resp B/P (MAP) Pulse Ox O2 Delivery O2 Flow Rate FiO2 04/01/17 16:00 Nasal Cannula 4.0 04/01/17 15:42 36.3 111 26 135/63 (87) 94 Nasal Cannula 4.0 04/01/17 14:35 117 20 96 Nasal Cannula 4.0 04/01/17 12:00 Nasal Cannula 4.0 04/01/17 11:28 36.4 93 18 113/55 (74) 91 4.0 04/01/17 11:16 96 15 93 Nasal Cannula 4.0 04/01/17 08:00 Nasal Cannula 4.0 04/01/17 08:00 36.4 89 18 142/76 (98) 91 Nasal Cannula 4.0 Mask 04/01/17 07:43 91 18 94 Nasal Cannula 4.0 04/01/17 04:00 Nasal Cannula 4.0 04/01/17 03:49 36.6 100 20 147/71 (96) 95 Nasal Cannula 4.0 04/01/17 02:06 105 20 92 Nasal Cannula 4.0 04/01/17 00:00 Nasal Cannula 3.0 03/31/17 23:15 36.9 100 24 142/62 (88) 92 Nasal Cannula 3.0 03/31/17 20:01 36.7 108 22 93/59 (70) 94 Nasal Cannula 3.0 Mask 03/31/17 20:00 Nasal Cannula 3.0 03/31/17 19:00 108 18 95 Nasal Cannula 3.0 General Appearance: no apparent distress, + obese ENT: pharynx normal Respiratory/Chest: + decreased breath sounds (in all [place]) Cardiovascular: regular rate, rhythm Abdomen/GI: non tender, soft Extremities/Musculoskelatal: no pedal edema Neurologic/Psych: no motor/sensory deficits, alert, oriented x 3 Laboratory Results Last 24 Hours Test 03/31/17 20:21 03/31/17 23:47 04/01/17 03:55 04/01/17 04:42 Bedside Glucose 326 mg/dl 296 mg/dl 105 mg/dl White Blood Count 13.80 K/uL Red Blood Count 3.82 M/uL Hemoglobin 12.0 g/dL Hematocrit 36.0 % Mean Corpuscular Volume 94.2 fL Mean Corpuscular Hemoglobin 31.4 pg Mean Corpuscular Hemoglobin Concent 33.3 g/dl RDW Standard Deviation 46.3 fL RDW Coefficient of Variation 13.5 % Platelet Count 170 K/uL Mean Platelet Volume 9.0 fL Sodium Level 129 mmol/L Potassium Level 4.4 mmol/L Chloride Level 93 mmol/L Carbon Dioxide Level 29 mmol/L Anion Gap 7.0 mmol/L Blood Urea Nitrogen 87 mg/dl Creatinine 2.43 mg/dl Est Creatinine Clear Calc Drug Dose 35.3 ml/min Estimated GFR () 29.0 Estimated GFR (Non- 25.1 BUN/Creatinine Ratio 35.8 Random Glucose 104 mg/dl Calcium Level 8.2 mg/dl Test 04/01/17 06:37 04/01/17 11:03 04/01/17 16:07 04/01/17 16:24 Bedside Glucose 150 mg/dl 204 mg/dl 241 mg/dl Sodium Level 127 mmol/L Potassium Level 4.3 mmol/L Chloride Level 91 mmol/L Carbon Dioxide Level 27 mmol/L Anion Gap 9.0 mmol/L Blood Urea Nitrogen 87 mg/dl Creatinine 2.40 mg/dl Est Creatinine Clear Calc Drug Dose 35.7 ml/min Estimated GFR () 29.5 Estimated GFR (Non- 25.4 BUN/Creatinine Ratio 36.1 Random Glucose 213 mg/dl Calcium Level 8.2 mg/dl Assessment & Plan Mr. Jordan has a large small cell lung cancer in his mediastinum. I suspect it is contributing to his orthopnea, though the right effusion may be contributing as well. He also seems like a risk for non-compliance, given that he lives alone and seems very motivated to not be in the hospital. Small cell lung cancers can respond very rapidly to treatment and so I think it would be justified to consider treating him while inpatient. Normally, we would use a [place] agent (in his case, carboplatin given his renal function) and etoposide , but there is a nation-wide shortage of IV etoposide, so we will need to use irinotecan instead. I will discuss this in more detail with him in the morning. I would like to stage him with an MRI and a CT abdomen. If he has limited stage disease, which this might be, we could consider starting concurrent radiation with his second cycle. I will discuss this all with him more in the morning.
--- NOTE | 2017-04-01 18:18 | Progress Note ---
Subjective Date of Service: Apr 01, 2017. Subjective Pt evaluation today including: conversation w/ patient, physical exam, chart review, lab review, review of studies, conversation w/ automotive consultant, review of inpatient medication list feeling ok wants to go home - discussed creatinine rise and likely HCTZ as culprit, IVF, discussed home oxygen later pathology report returned - d/w heme onc who kindly saw promptly to discuss treatment dr stephenson then revisited to d/w pt far safer to stay to initiate treatment despite hsi really wanting to go home given probable airway compromise - he then consents to stay Problem List Medical Problems: (1) COPD (chronic obstructive pulmonary disease) Status: Acute (2) Hypoxia Status: Acute (3) Lung mass Status: Acute (4) SOB (shortness of breath) Status: Acute Review of Systems all other ROS otherwise negative except for as above Objective Vital Signs Date Time Temp Pulse Resp B/P (MAP) Pulse Ox O2 Delivery O2 Flow Rate FiO2 04/01/17 16:00 Nasal Cannula 4.0 04/01/17 15:42 36.3 111 26 135/63 (87) 94 Nasal Cannula 4.0 04/01/17 14:35 117 20 96 Nasal Cannula 4.0 04/01/17 12:00 Nasal Cannula 4.0 04/01/17 11:28 36.4 93 18 113/55 (74) 91 4.0 04/01/17 11:16 96 15 93 Nasal Cannula 4.0 04/01/17 08:00 Nasal Cannula 4.0 04/01/17 08:00 36.4 89 18 142/76 (98) 91 Nasal Cannula 4.0 Mask 04/01/17 07:43 91 18 94 Nasal Cannula 4.0 04/01/17 04:00 Nasal Cannula 4.0 04/01/17 03:49 36.6 100 20 147/71 (96) 95 Nasal Cannula 4.0 04/01/17 02:06 105 20 92 Nasal Cannula 4.0 04/01/17 00:00 Nasal Cannula 3.0 03/31/17 23:15 36.9 100 24 142/62 (88) 92 Nasal Cannula 3.0 03/31/17 20:01 36.7 108 22 93/59 (70) 94 Nasal Cannula 3.0 Mask 03/31/17 20:00 Nasal Cannula 3.0 03/31/17 19:00 108 18 95 Nasal Cannula 3.0 Physical Exam General Appearance: no apparent distress Eyes: EOMI ENT: hearing grossly normal Neck: trachea midline Respiratory/Chest: no respiratory distress, no accessory muscle use 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, alert Skin: normal color Laboratory Results Last 24 Hours Test 03/31/17 20:21 03/31/17 23:47 04/01/17 03:55 04/01/17 04:42 Bedside Glucose 326 mg/dl 296 mg/dl 105 mg/dl White Blood Count 13.80 K/uL Red Blood Count 3.82 M/uL Hemoglobin 12.0 g/dL Hematocrit 36.0 % Mean Corpuscular Volume 94.2 fL Mean Corpuscular Hemoglobin 31.4 pg Mean Corpuscular Hemoglobin Concent 33.3 g/dl RDW Standard Deviation 46.3 fL RDW Coefficient of Variation 13.5 % Platelet Count 170 K/uL Mean Platelet Volume 9.0 fL Sodium Level 129 mmol/L Potassium Level 4.4 mmol/L Chloride Level 93 mmol/L Carbon Dioxide Level 29 mmol/L Anion Gap 7.0 mmol/L Blood Urea Nitrogen 87 mg/dl Creatinine 2.43 mg/dl Est Creatinine Clear Calc Drug Dose 35.3 ml/min Estimated GFR () 29.0 Estimated GFR (Non- 25.1 BUN/Creatinine Ratio 35.8 Random Glucose 104 mg/dl Calcium Level 8.2 mg/dl Test 04/01/17 06:37 04/01/17 11:03 04/01/17 16:07 04/01/17 16:24 Bedside Glucose 150 mg/dl 204 mg/dl 241 mg/dl Sodium Level 127 mmol/L Potassium Level 4.3 mmol/L Chloride Level 91 mmol/L Carbon Dioxide Level 27 mmol/L Anion Gap 9.0 mmol/L Blood Urea Nitrogen 87 mg/dl Creatinine 2.40 mg/dl Est Creatinine Clear Calc Drug Dose 35.7 ml/min Estimated GFR () 29.5 Estimated GFR (Non- 25.4 BUN/Creatinine Ratio 36.1 Random Glucose 213 mg/dl Calcium Level 8.2 mg/dl Assessment and Plan 76 y/o M PMH hypertension, CKD, AAA, CAD, uncontrolled COPD, tobacco abuse, T2DM. Here for dyspnea found to have lung mass on CT. Of note, pt has expressed a strong dislike to being in the hospital, but has been mostly amenable to all interventions and diagnostics thus far. small cell lung cancer - CT shows: Right suprahilar mass with mediastinal extension 7.3 x 5.2 cm. This mass extends across the midline and likely abuts the anterior aspect of the adrienne. This mass results in significant narrowing of several right upper lobe bronchi. There are multiple enlarged mediastinal lymph nodes. A 4 mm right lower lobe nodule is similar to CT of February 13, 2011 and is likely benign. - CT Surg consulted - Dr. Davenport took for mediastinoscopy - path shows small cell - given oncology input and airway compromise - for inpatient chemo Acute on chronic SOB/COPD - seems to be improving - strongly suspect chronic respiratory failure related to COPD - likely to need O2 all the time CKD 3B - worse today appearing prerenal - ACEi and HCTZ have been stopped - IVF and follow - suspect cor pulmonale / pulmonary HTN is what led to him appearing swollen despite also appearing intravascular volume depleted Hyperglycemia, T2DM - continue to follow on insulins with steroids Hypertension -holding ZEKE and thiazide, follow BP off those Hyperlipidemia - continue atorvastatin 40mg daily CAD - continue ASA 81mg tab daily Tobacco abuse - nicotine 21 mg patch TD QAM. DVT ppx heparin SQ Code: full Dispo med surg Discharge planning: home but inpatient oncology treatment first Continued [facility] stay due to: other (awaiting mediastinoscopy) Discharge planning: home
[2017-04-01] MEDS: HEPARIN SOD 5000 UNIT/0.5 ML CARP SQ SCH (21:14)
--- NOTE | 2017-04-01 22:04 | DIAGNOSTIC IMAGING REPORT ---
ABDOMEN AND PELVIS CT WITH ORAL CONTRAST CT DOSE: 1682.06 mGy.cm HISTORY: Small cell lung cancer. TECHNIQUE: Multiaxial CT images of the abdomen and pelvis were performed following the use of oral contrast. A dose lowering technique was utilized adhering to the principles of ALARA. COMPARISON STUDY: Abdomen and pelvis CT 02/13/2011. FINDINGS: Small right pleural effusion is again noted. No pneumoperitoneum. No pneumatosis. No suspicious lytic or blastic osseous lesions. Suboptimal evaluation for metastatic disease due to the lack of intravenous contrast. No definite hepatic masses. Calcified granuloma seen within the liver and spleen. Normal adrenal glands. The unenhanced pancreas is unremarkable. No hydronephrosis. Bilateral renal hypodense lesions are incompletely characterized on this noncontrast study but statistically represent cysts. Normal gallbladder. No retroperitoneal lymphadenopathy. Mild aneurysmal dilatation of the abdominal aorta measuring up to 3 cm. Slightly nodular contour to the liver consistent with cirrhosis. Mild body wall edema. Small focus of gas within the bladder likely due to prior catheterization. The bladder is mildly distended. No bowel wall thickening or obstruction. Colonic diverticulosis. Mild motion artifact. Consolidation within the right lower lobe posteriorly favors compressive atelectasis from the pleural effusion. The heart is normal in size. IMPRESSION: 1. No evidence for metastatic disease within the abdomen or pelvis. 2. Small right pleural effusion, unchanged. 3. Slightly nodular contour to the liver consistent with cirrhosis. 4. Colonic diverticulosis. 5. Additional findings as described above. Electronically signed by: Bryce Franz M.D. 04/01/2017 10:03 PM Dictated Date/Time: 04/01/2017 9:55 PM
[2017-04-01] MEDS: MoRPHine SULFATE 2 MG/ML CARP IV PRN (23:43)
[2017-04-02] VITALS (12 sets, daily range): BP systolic 113–159; BP diastolic 47–70; PULSE 84–111; TEMP 36.4–36.7; O2SAT 93–98
[2017-04-02] MEDS ORDERED: INSULIN ASPART 100 UNITS/ML 3 ML PEN SC ONE (02:00)
[2017-04-02] MEDS: ALBUT/IPRATROP 3MG/0.5MG NEB 3 ML VIAL INH SCH ×4 (07:04→19:11)
[2017-04-02 08:02] LABS: HEMATOCRIT 35.6 % (42-52); HEMOGLOBIN 11.5 g/dL (14.0-18.0); MEAN CELL VOLUME 93.9 fL (80-100); MEAN CORPUSCULAR HEMOGLOBIN 30.3 pg (25-34); MEAN CORPUSCULAR HGB CONC 32.3 g/dl (32-36); MEAN PLATELET VOLUME 9.5 fL (7.4-10.4); PLATELET COUNT 154 K/uL (130-400); RED CELL DISTRIBUTION WIDTH CV 13.3 % (11.5-14.5); RED CELL DISTRIBUTION WIDTH SD 46.1 fL (36.4-46.3); WHITE BLOOD COUNT 12.89 K/uL (4.8-10.8)
[2017-04-02 08:31] LABS: CALCIUM 7.8 mg/dl (8.5-10.1); CREATININE 1.95 mg/dl (0.60-1.40); POTASSIUM 4.8 mmol/L (3.5-5.1)
[2017-04-02] MEDS: BUDESONIDE/FORMOTEROL FUMARATE 160/4.5 60 PUFFS/INHALER INH SCH ×2 (08:31→20:50)
[2017-04-02] MEDS: METHYLPREDNISOLONE IV 40 MG in SYRINGE 0 ML IV SCH ×2 (08:31→20:50)
[2017-04-02] MEDS: TIOTROPIUM BROMIDE 5 PUFF/90 MCG INH INH SCH (08:32)
[2017-04-02] MEDS: ATORVASTATIN 40 MG TAB PO SCH (08:33)
[2017-04-02] MEDS: LISINOPRIL/HCTZ 20/25MG TAB PO SCH (08:34)
[2017-04-02] MEDS: INSULIN ASPART 100 UNITS/ML 3 ML PEN SC SCH ×4 (08:37→20:55)
[2017-04-02] MEDS: HEPARIN SOD 5000 UNIT/0.5 ML CARP SQ SCH (08:38)
[2017-04-02] MEDS: INSULIN GLARGINE SC SCH ×2 (08:38→20:52)
[2017-04-02] MEDS: NICOTINE 21 MG/24 HR TDSY TD SCH (08:38)
--- NOTE | 2017-04-02 10:20 | Progress Note ---
Progress Note Date of Service Apr 02, 2017. Progress Note Mr. Jordan was seen today. I removed his dressing and his mediastinoscopy incision looks fine. This is a small cell lung carcinoma. Dr. Ambriz is seeing him. I agree with Dr. Ambriz that the size of this tumor and its location in the mediastinum may be contributing to his dyspnea at rest. He has difficulty lying down. He is to start chemotherapy here in the hospital.
--- NOTE | 2017-04-02 10:44 | Family Medicine Progress Note ---
Progress Note Date of Service Apr 02, 2017. Subjective Pt evaluation today including: conversation w/ patient, physical exam, chart review, lab review, review of inpatient medication list Pain: Denies pain PO Intake: tolerating well Voiding: no voiding problems Patient had rough night, very tired today. Had difficulty lying flat for MRI/ claustrophobic. Respiratory: + cough, + sputum, + wheezing, + shortness of breath, + dyspnea on exertion Cardiovascular: No chest pain, No orthopnea, No PND, No edema, No claudication, No palpitations, No problem reported All Other Systems: Reviewed and Negative Medications Current Inpatient Medications Medications (Trade) Dose Ordered Sig/Michel Route Start Time Stop Time Status Last Admin Dose Admin Acetaminophen (Tylenol Tab) 650 mg Q4H PRN PO 03/28/17 23:45 04/27/17 23:44 Al Hydrox/Mg Hydrox/Simethicone (Maalox Max Susp) 15 ml Q4H PRN PO 03/28/17 23:45 04/27/17 23:44 Magnesium Hydroxide (Milk Of Magnesia Susp) 30 ml Q6H PRN PO 03/28/17 23:45 04/27/17 23:44 Polyethylene (Miralax Powder Packet) 17 gm DAILY PRN PO 03/28/17 23:45 04/27/17 23:44 Ondansetron HCl (Zofran Inj) 4 mg Q6H PRN IV 03/28/17 23:45 04/27/17 23:44 Albuterol/ Ipratropium (Duoneb) 3 ml QIDR INH 03/29/17 08:00 04/28/17 07:59 04/02/17 19:11 3 ML Atorvastatin Calcium (Lipitor Tab) 40 mg DAILY PO 03/29/17 09:00 04/28/17 08:59 04/02/17 08:33 40 MG HCTZ/Lisinopril (Prinzide 20-25MG Tab) 1 tab DAILY PO 03/29/17 09:00 04/28/17 08:59 04/02/17 08:34 1 TAB Glucose (Glucose 40% Gel) 15-30 GRAMS 15 GRAMS... UD PRN PO 03/29/17 00:15 04/28/17 00:14 Glucose (Glucose Chew Tab) 4-8 Tablets 4 Tabl... UD PRN PO 03/29/17 00:15 04/28/17 00:14 Dextrose (Dextrose 50% 50ML Syringe) 25-50ML OF 50% DW IV FOR... UD PRN IV 03/29/17 00:15 04/28/17 00:14 Glucagon (Glucagon Inj) 1 mg UD PRN SQ 03/29/17 00:15 04/28/17 00:14 Nitroglycerin (Nitrostat Tab) 0.4 mg PRN PRN SL 03/29/17 00:15 04/28/17 00:14 Miscellaneous (Iv Fluids Completed) 1 ea PRN PRN N/A 03/29/17 00:30 03/29/18 00:29 Nicotine (Nicoderm Cq 21MG Patch) 1 patch QAM TD 03/29/17 09:00 04/28/17 08:59 04/02/17 08:38 1 PATCH Miscellaneous (Remove Nicoderm Patch) 1 ea HS N/A 03/29/17 21:00 04/28/17 20:59 03/31/17 20:38 1 EA Miscellaneous Information (Consult Glycemic Management Pharmacy) 1 ea UD N/A 03/29/17 17:59 04/28/17 17:58 Budesonide/ Formoterol Fumarate (Symbicort 160/ 4.5 Inh) 2 puffs BID INH 03/30/17 09:00 04/29/17 08:59 04/02/17 20:50 2 PUFFS Tiotropium [place] (Spiriva Handihaler Inhaler) 2 puff QAM INH 03/30/17 09:00 04/29/17 08:59 04/02/17 08:32 2 PUFF Morphine Sulfate (MoRPHine SULFATE INJ) 2 mg Q3H PRN IV 03/30/17 15:15 04/13/17 15:14 04/02/17 21:17 2 MG Oxycodone HCl (Roxicodone Immediate Rel Tab) 5 mg Q4H PRN PO 03/30/17 15:15 04/13/17 15:14 04/01/17 01:55 5 MG Insulin Aspart (novoLOG ASPART) SLIDING SCALE G... ACHS SC 03/31/17 06:45 04/30/17 00:00 2/22/18 20:55 2 UNITS Insulin Glargine (Lantus Vial) see protocol BID SC 03/31/17 21:00 04/30/17 20:59 04/02/17 20:52 40 UNITS Methylprednisolone Sodium Succinate 40 mg/Syringe 0.64 ml @ 1.5 mls/min BID IV 04/02/17 09:00 05/02/17 08:59 04/02/17 20:50 1.5 MLS/MIN Ondansetron HCl 16 mg/ Dexamethasone Sodium Phosphate 12 mg/Sodium Chloride 61 ml @ 180 mls/hr TODAY@1230 IV 04/03/17 12:30 04/03/17 18:00 Carboplatin 279 mg/Sodium Chloride 277.9 ml @ 555.8 mls/ hr TODAY@1300 IV 04/03/17 13:00 04/03/17 18:00 Irinotecan HCl 30 mg/Irinotecan HCl 100 mg/Dextrose 506.5 ml @ 337.667 mls/hr TODAY@1330 IV 04/03/17 13:30 04/03/17 18:00 Atropine Sulfate 0.4 mg/Syringe 1 ml @ 2 mls/min TODAY@1430 PRN IV 04/03/17 14:30 04/03/17 23:59 Objective Vital Signs Date Time Temp Pulse Resp B/P (MAP) Pulse Ox O2 Delivery O2 Flow Rate FiO2 04/02/17 21:06 36.6 105 24 159/68 (98) 98 Nasal Cannula 4.0 04/02/17 20:00 Nasal Cannula 4.0 04/02/17 20:00 36.7 105 24 138/69 (92) 93 Nasal Cannula 4.0 04/02/17 19:11 94 20 93 Nasal Cannula 2.0 04/02/17 17:35 Nasal Cannula 4.0 04/02/17 12:00 Nasal Cannula 4.0 04/02/17 12:00 36.4 84 22 126/63 (84) 94 Nasal Cannula 4.0 04/02/17 11:18 97 20 95 Nasal Cannula 3.0 04/02/17 08:00 Nasal Cannula 4.0 04/02/17 07:48 36.5 95 18 133/47 (75) 98 04/02/17 07:04 95 20 97 Nasal Cannula 4.0 04/02/17 05:27 94 Nasal Cannula 4.0 04/02/17 04:00 Nasal Cannula 5.0 04/02/17 03:30 36.4 99 22 144/69 (94) 93 5.0 04/02/17 00:28 36.4 111 18 113/64 (80) 96 Physical Exam General Appearance: WD/WN, no apparent distress Eyes: normal inspection, PERRL, EOMI, sclerae normal ENT: hearing grossly normal, pharynx normal Neck: supple, no carotid bruits, trachea midline Respiratory/Chest: chest non-tender, no respiratory distress, no accessory muscle use, + decreased breath sounds, + wheezing Cardiovascular: regular rate, rhythm, no gallop, no JVD, no murmur Abdomen: normal bowel sounds, soft, + distended Extremities: non-tender, no calf tenderness, + pedal edema (1+ bilaterally) 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 Here for dyspnea found to have lung mass on CT with subsequent path result of small cell lung ca. Of note, pt has expressed a strong aversion to being in the hospital, but has been mostly amenable to all interventions and diagnostics thus far. small cell lung cancer - CT shows: Right suprahilar mass with mediastinal extension 7.3 x 5.2 cm. This mass extends across the midline and likely abuts the anterior aspect of the adrienne. This mass results in significant narrowing of several right upper lobe bronchi. There are multiple enlarged mediastinal lymph nodes. A 4 mm right lower lobe nodule is similar to CT of February 13, 2011 and is likely benign. - CT Surg consulted - Dr. Davenport took for mediastinoscopy - path shows small cell - given oncology input and airway compromise - for inpatient chemo to start tomorrow, then weekly with Dr. Ambriz - Appreciate heme/onc recommendations - rad/onc consult and radiation started today; moved to 4th floor - Consulted gen/surg for port placement tomorrow 10 AM with chemo tomorrow pm. Anesthesia aware of prior difficulty with mediastinoscopy. - Heparin held tomorrow AM, hold ASA Acute on chronic SOB/COPD - seems to be improving - strongly suspect chronic respiratory failure related to COPD - likely to need O2 all the time - will 2 step prior to discharge CKD 3B - Improved slightly today, appearing prerenal - ACEi and HCTZ have been stopped - IVF and follow - suspect cor pulmonale / pulmonary HTN is what led to him appearing swollen despite also appearing intravascular volume depleted Hyperglycemia, T2DM - continue to follow on insulins with steroids - improved control in last few days Hypertension -holding ZEKE and thiazide, follow BP off those Hyperlipidemia - continue atorvastatin 40mg daily CAD - continue ASA 81mg tab daily Tobacco abuse - nicotine 21 mg patch TD QAM. DVT ppx heparin SQ, held after tonight's dose Code: full Dispo med surg Resident Physician Supervision Note: I interviewed and examined the patient. Discussed with Dr. Roberts and agree with findings and plan as documented in the note. Any exceptions or clarifications are listed here: None Documented By: Mason Angelo feeling good this evening family with questions answered to the best of my ability vitals noted nad breathing unlabored chronic respiratory failure - supportive care scc lung ca w airway compromise contributing to chronic respiratory failure - aggressive early treatment to prevent airway compromise otherwise as above Resident Tracking Resident Involvement: Resident Care Provided Care Provided: Adult Hospital Medicine
--- NOTE | 2017-04-02 11:31 | Pharmacy Progress Note ---
Pharmacy Glycemic Short Note 2 Date of Service Apr 02, 2017. Outpatient Anti-diabetic Regimen: * Novolin 70/30 95 units SQ BID * A1c = 8.6% (03/30/17) ASSESSMENT: 04/02/17 * BSGs dropped quite a bit once SoluMedrol was decreased to Prednisone, however , SoluMedrol has been re-started this am. * No changes for now. 04/01/17 * BSGs have ranged 105-326 over the last 24 hours with current SQ orders; received 213 units of SQ insulin (only ate 1 meal yesterday) * Fasting BSG 150 today with 120 units of Lantus on board and after receiving 21 units of Novolog correction overnight * Steroid dose is being reduced ~50% today - would expect improved insulin resistance over the next 24 hours * Post-prandial hyperglycemia was observed yesterday despite use of a CR of 1:3 ; I am hesitant to reduce this dose given yesterday's hyperglycemia. Perhaps this dose will perform better on the lower dose of steroids today PLAN FOR INPATIENT GLYCEMIC CONTROL: * Continue Lantus SQ BID per scale: * 20 units if BSG less than 120 * 40 units if BSG 120-180 * 60 units if BSG above 180 * Continue correction factor of 7 mg/dl/unit * Continue carb ratio to 1 unit per 3 grams CHO consumed * Continue goal range of Low 120 mg/dL - High 150 mg/dL PLAN FOR DISCHARGE: * Current A1c (8.6%) suggests slightly sub-optimal glycemic control as an outpatient. * Patient is not necessarily compliant with his insulin, and is quite set in his ways. * CDE has seen patient, but he was not really open to discussing changes to his diabetes management. * refer to their note * Recommend f/u with PCP and an attempt at stabilizing his regimen and optimizing A1c. * Please note that the plan above was derived based on current level of insulin resistance and hospital stress. These recommendations are appropriate for inpatient admission only. Plan of care upon discharge will need to be reassessed to avoid potential outpatient hypo/hyperglycemia. Thank you.
--- NOTE | 2017-04-02 14:40 | Medical Consult ---
Consultation Date of Consultation: Apr 02, 2017. Attending Physician: Mason Angelo D.O. Reason for Consultation: Port Placement History of Present Illness 76-year-old male with past medical history significant for hypertension, CKD, AAA, CAD, uncontrolled COPD, tobacco abuse, DM type 2 with recently diagnosed small cell lung cancer- General Surgery consult for port placement. Patient set to begin chemotherapy tomorrow afternoon. Past Medical/Surgical History Medical Problems: (1) COPD (chronic obstructive pulmonary disease) Status: Acute (2) Hypoxia Status: Acute (3) Lung mass Status: Acute (4) SOB (shortness of breath) Status: Acute Social History Smoking Status: Current Every Day Smoker Occupation Status: retired Allergies Coded Allergies: No Known Allergies (Verified , 03/28/17) Current Inpatient Medications Current Inpatient Medications Medications (Trade) Dose Ordered Sig/Michel Route Start Time Stop Time Status Last Admin Dose Admin Acetaminophen (Tylenol Tab) 650 mg Q4H PRN PO 03/28/17 23:45 04/27/17 23:44 Al Hydrox/Mg Hydrox/Simethicone (Maalox Max Susp) 15 ml Q4H PRN PO 03/28/17 23:45 04/27/17 23:44 Magnesium Hydroxide (Milk Of Magnesia Susp) 30 ml Q6H PRN PO 03/28/17 23:45 04/27/17 23:44 Polyethylene (Miralax Powder Packet) 17 gm DAILY PRN PO 03/28/17 23:45 04/27/17 23:44 Ondansetron HCl (Zofran Inj) 4 mg Q6H PRN IV 03/28/17 23:45 04/27/17 23:44 Albuterol/ Ipratropium (Duoneb) 3 ml QIDR INH 03/29/17 08:00 04/28/17 07:59 04/02/17 11:17 3 ML Aspirin (Ecotrin Tab) 81 mg DAILY PO 03/29/17 09:00 04/28/17 08:59 Future Hold 03/29/17 08:34 81 MG Atorvastatin Calcium (Lipitor Tab) 40 mg DAILY PO 03/29/17 09:00 04/28/17 08:59 04/02/17 08:33 40 MG HCTZ/Lisinopril (Prinzide 20-25MG Tab) 1 tab DAILY PO 03/29/17 09:00 3/20/18 08:59 04/02/17 08:34 1 TAB Glucose (Glucose 40% Gel) 15-30 GRAMS 15 GRAMS... UD PRN PO 03/29/17 00:15 04/28/17 00:14 Glucose (Glucose Chew Tab) 4-8 Tablets 4 Tabl... UD PRN PO 03/29/17 00:15 04/28/17 00:14 Dextrose (Dextrose 50% 50ML Syringe) 25-50ML OF 50% DW IV FOR... UD PRN IV 03/29/17 00:15 04/28/17 00:14 Glucagon (Glucagon Inj) 1 mg UD PRN SQ 03/29/17 00:15 04/28/17 00:14 Nitroglycerin (Nitrostat Tab) 0.4 mg PRN PRN SL 03/29/17 00:15 04/28/17 00:14 Miscellaneous (Iv Fluids Completed) 1 ea PRN PRN N/A 03/29/17 00:30 03/29/18 00:29 Nicotine (Nicoderm Cq 21MG Patch) 1 patch QAM TD 03/29/17 09:00 04/28/17 08:59 04/02/17 08:38 1 PATCH Miscellaneous (Remove Nicoderm Patch) 1 ea HS N/A 03/29/17 21:00 04/28/17 20:59 03/31/17 20:38 1 EA Miscellaneous Information (Consult Glycemic Management Pharmacy) 1 ea UD N/A 03/29/17 17:59 04/28/17 17:58 Budesonide/ Formoterol Fumarate (Symbicort 160/ 4.5 Inh) 2 puffs BID INH 03/30/17 09:00 04/29/17 08:59 04/02/17 08:31 2 PUFFS Tiotropium [place] (Spiriva Handihaler Inhaler) 2 puff QAM INH 03/30/17 09:00 04/29/17 08:59 04/02/17 08:32 2 PUFF Morphine Sulfate (MoRPHine SULFATE INJ) 2 mg Q3H PRN IV 03/30/17 15:15 04/13/17 15:14 04/01/17 23:43 2 MG Oxycodone HCl (Roxicodone Immediate Rel Tab) 5 mg Q4H PRN PO 03/30/17 15:15 04/13/17 15:14 04/01/17 01:55 5 MG Insulin Aspart (novoLOG ASPART) SLIDING SCALE G... ACHS SC 03/31/17 06:45 04/30/17 00:00 04/02/17 08:37 5 UNITS Insulin Glargine (Lantus Vial) see protocol BID SC 03/31/17 21:00 04/30/17 20:59 04/02/17 08:38 20 UNITS Methylprednisolone Sodium Succinate 40 mg/Syringe 0.64 ml @ 1.5 mls/min BID IV 04/02/17 09:00 05/02/17 08:59 04/02/17 08:31 1.5 MLS/MIN Heparin Sodium (Porcine) (Heparin Sq 5000 Unit/0.5ml) 5,000 unit Q12 SQ 04/01/17 21:00 05/01/17 20:59 Future Hold 04/02/17 08:38 5,000 UNIT Heparin Sodium (Porcine) (Heparin Sq 5000 Unit/0.5ml) 5,000 unit ONE ONCE SQ 04/02/17 20:00 04/02/17 20:01 Review of Systems Constitutional: No fever, No chills Physical Exam Date Time Temp Pulse Resp B/P (MAP) Pulse Ox O2 Delivery O2 Flow Rate FiO2 04/02/17 12:00 Nasal Cannula 4.0 04/02/17 12:00 36.4 84 22 126/63 (84) 94 Nasal Cannula 4.0 04/02/17 11:18 97 20 95 Nasal Cannula 3.0 04/02/17 08:00 Nasal Cannula 4.0 04/02/17 07:48 36.5 95 18 133/47 (75) 98 04/02/17 07:04 95 20 97 Nasal Cannula 4.0 04/02/17 05:27 94 Nasal Cannula 4.0 04/02/17 04:00 Nasal Cannula 5.0 04/02/17 03:30 36.4 99 22 144/69 (94) 93 5.0 04/02/17 00:28 36.4 111 18 113/64 (80) 96 04/01/17 23:59 Nasal Cannula 4.0 04/01/17 20:00 Nasal Cannula 4.0 04/01/17 19:11 76 20 93 Nasal Cannula 4.0 04/01/17 18:52 36.4 108 28 157/70 (99) 93 Nasal Cannula 3.0 04/01/17 16:00 Nasal Cannula 4.0 04/01/17 15:42 36.3 111 26 135/63 (87) 94 Nasal Cannula 4.0 04/01/17 14:35 117 20 96 Nasal Cannula 4.0 General Appearance: WD/WN, no apparent distress Head: normocephalic, atraumatic Neck: supple Respiratory/Chest: no respiratory distress Skin: normal color, warm/dry Laboratory Results Last 24 Hours Test 04/01/17 16:07 04/01/17 16:24 04/01/17 20:13 04/02/17 02:30 Sodium Level 127 mmol/L Potassium Level 4.3 mmol/L Chloride Level 91 mmol/L Carbon Dioxide Level 27 mmol/L Anion Gap 9.0 mmol/L Blood Urea Nitrogen 87 mg/dl Creatinine 2.40 mg/dl Est Creatinine Clear Calc Drug Dose 35.7 ml/min Estimated GFR () 29.5 Estimated GFR (Non- 25.4 BUN/Creatinine Ratio 36.1 Random Glucose 213 mg/dl Calcium Level 8.2 mg/dl Bedside Glucose 241 mg/dl 167 mg/dl 99 mg/dl Test 04/02/17 06:36 04/02/17 07:09 04/02/17 11:25 Bedside Glucose 83 mg/dl 140 mg/dl White Blood Count 12.89 K/uL Red Blood Count 3.79 M/uL Hemoglobin 11.5 g/dL Hematocrit 35.6 % Mean Corpuscular Volume 93.9 fL Mean Corpuscular Hemoglobin 30.3 pg Mean Corpuscular Hemoglobin Concent 32.3 g/dl RDW Standard Deviation 46.1 fL RDW Coefficient of Variation 13.3 % Platelet Count 154 K/uL Mean Platelet Volume 9.5 fL Sodium Level 128 mmol/L Potassium Level 4.8 mmol/L Chloride Level 93 mmol/L Carbon Dioxide Level 30 mmol/L Anion Gap 5.0 mmol/L Blood Urea Nitrogen 89 mg/dl Creatinine 1.95 mg/dl Est Creatinine Clear Calc Drug Dose 44.7 ml/min Estimated GFR () 37.9 Estimated GFR (Non- 32.7 BUN/Creatinine Ratio 45.7 Random Glucose 73 mg/dl Calcium Level 7.8 mg/dl Assessment & Plan 76-year-old male with recently diagnosed small cell lung cancer for port placement for chemotherapy. Patient is to begin chemotherapy tomorrow, 04/03/2017. Dr. Wood will place port in OR tomorrow, 04/03/2017 prior to start of chemotherapy. Port placement discussed with patient. Risks of surgery discussed with patient including, but not limited to bleeding, infection, injury. Patient had no further questions. He verbalized understanding and agreement. NPO after midnight. Hospitalist team to manage Heparin. Dr. Wood will obtain consent prior to the procedure tomorrow.
--- NOTE | 2017-04-02 17:16 | Hematology/Oncology Prog Note ---
Hematology/Onc Progress Note Date of Service Apr 02, 2017. Diagnoses Small cell lung cancer Medications Medications Administered Medications (Trade) Dose Ordered Sig/Michel Route Start Time Stop Time Status Last Admin Dose Admin Albuterol/ Ipratropium (Duoneb) 3 ml NOW STAT INH 03/28/17 18:17 03/28/17 18:18 DC 03/28/17 18:32 3 ML Albuterol/ Ipratropium (Duoneb) 3 ml QIDR INH 03/29/17 08:00 04/28/17 07:59 04/02/17 11:17 3 ML Aspirin (Ecotrin Tab) 81 mg DAILY PO 03/29/17 09:00 04/28/17 08:59 Future Hold 03/29/17 08:34 81 MG Atorvastatin Calcium (Lipitor Tab) 40 mg DAILY PO 03/29/17 09:00 04/28/17 08:59 04/02/17 08:33 40 MG HCTZ/Lisinopril (Prinzide 20-25MG Tab) 1 tab DAILY PO 03/29/17 09:00 04/28/17 08:59 04/02/17 08:34 1 TAB Methylprednisolone Sodium Succinate (Solu-Medrol IV) 125 mg NOW STAT IV 03/28/17 23:52 03/28/17 23:58 DC 03/29/17 01:21 125 MG Methylprednisolone Sodium Succinate 40 mg/Syringe 0.64 ml @ 1.5 mls/min Q8H IV 03/29/17 08:00 03/30/17 17:09 DC 03/30/17 08:43 1.5 MLS/MIN Insulin Aspart (novoLOG ASPART) SLIDING SCALE G... ACHS SC 03/29/17 04:00 03/30/17 21:37 DC 03/30/17 20:23 5 UNITS Insulin Glargine (Lantus Vial) 65 units BID SC 03/29/17 09:00 03/29/17 18:14 DC 03/29/17 08:39 65 UNITS Insulin Human Regular 5 units/ Syringe 5 ml @ 30 mls/min TODAY@0115 IV 03/29/17 01:15 03/29/17 01:16 DC 03/29/17 01:39 30 MLS/MIN Insulin Aspart (novoLOG ASPART) SLIDING SCALE G... ONE ONCE SC 03/29/17 01:15 03/29/17 01:16 DC 03/29/17 02:42 17 UNITS Insulin Glargine (Lantus Vial) 65 units ONE ONCE SC 03/29/17 01:15 03/29/17 01:16 DC 03/29/17 02:43 65 UNITS Nicotine (Nicoderm Cq 21MG Patch) 1 patch QAM TD 03/29/17 09:00 04/28/17 08:59 04/02/17 08:38 1 PATCH Miscellaneous (Remove Nicoderm Patch) 1 ea HS N/A 03/29/17 21:00 04/28/17 20:59 03/31/17 20:38 1 EA Perflutren Lipid Microsphere (Definity) 2 ml ONE ONCE IV 03/29/17 15:04 03/29/17 15:05 DC 03/29/17 15:05 2 ML Insulin Glargine (Lantus Vial) 80 units BID SC 03/29/17 21:00 03/30/17 10:20 DC 03/29/17 21:00 80 UNITS Insulin Glargine (Lantus Vial) 15 units NOW ONCE SC 03/29/17 18:15 03/29/17 18:16 DC 03/29/17 18:24 15 UNITS Insulin Aspart (novoLOG ASPART) SLIDING SCALE G... DAILY@0000,0400 SC 03/30/17 00:00 03/30/17 04:01 DC 03/30/17 00:13 20 UNITS Lorazepam 0.5 mg/ Syringe 0.5 ml @ 0.5 mls/min TODAY@2330 ONCE IV 03/29/17 23:30 03/29/17 23:31 DC 03/29/17 23:44 0.5 MLS/MIN Budesonide/ Formoterol Fumarate (Symbicort 160/ 4.5 Inh) 2 puffs BID INH 03/30/17 09:00 04/29/17 08:59 04/02/17 08:31 2 PUFFS Tiotropium [place] (Spiriva Handihaler Inhaler) 2 puff QAM INH 03/30/17 09:00 04/29/17 08:59 04/02/17 08:32 2 PUFF Morphine Sulfate (MoRPHine SULFATE INJ) 2 mg Q3H PRN IV 03/30/17 15:15 04/13/17 15:14 04/01/17 23:43 2 MG Oxycodone HCl (Roxicodone Immediate Rel Tab) 5 mg Q4H PRN PO 03/30/17 15:15 04/13/17 15:14 04/01/17 01:55 5 MG Methylprednisolone Sodium Succinate 40 mg/Syringe 0.64 ml @ 1.5 mls/min Q4 IV 03/30/17 20:00 03/31/17 08:15 DC 03/31/17 04:25 1.5 MLS/MIN Fentanyl Citrate (Fentanyl Inj) 100 mcg STK-MED ONCE .ROUTE 03/30/17 17:42 03/30/17 17:43 DC 03/30/17 18:01 50 MCG Ipratropium [place] (Atrovent Hfa Inhaler) 4 puffs QIDR INH 03/30/17 20:00 03/30/17 23:13 DC 03/30/17 19:49 4 PUFFS Albuterol (Ventolin Hfa Inhaler) 4 puffs QIDR INH 03/30/17 20:00 03/30/17 23:13 DC 03/30/17 19:49 4 PUFFS Fentanyl Citrate (Fentanyl Inj) 25 mcg Q2H PRN IV 03/30/17 20:15 03/31/17 08:16 DC 03/30/17 20:45 25 MCG Insulin Aspart (novoLOG ASPART) SLIDING SCALE G... ACHS SC 03/31/17 06:45 04/30/17 00:00 04/02/17 08:37 5 UNITS Insulin Aspart (novoLOG ASPART) SLIDING SCALE G... TODAY@0400 ONCE SC 03/31/17 04:00 03/31/17 04:01 DC 03/31/17 04:24 6 UNITS Insulin Aspart (novoLOG ASPART) SLIDING SCALE G... NOW STAT SC 03/31/17 00:39 03/31/17 00:40 DC 03/31/17 00:51 8 UNITS Insulin Glargine (Lantus Vial) 60 units BID SC 03/31/17 09:00 03/31/17 15:22 DC 03/31/17 08:31 60 UNITS Methylprednisolone Sodium Succinate 40 mg/Syringe 0.64 ml @ 1.5 mls/min Q12H IV 03/31/17 09:00 03/31/17 21:01 DC 03/31/17 20:36 1.5 MLS/MIN Insulin Glargine (Lantus Vial) see protocol BID SC 03/31/17 21:00 04/30/17 20:59 04/02/17 08:38 20 UNITS Insulin Aspart (novoLOG ASPART) SLIDING SCALE G... TODAY@0000,0400 SC 04/01/17 00:00 04/01/17 12:51 DC 04/01/17 00:21 21 UNITS Sodium Chloride 500 ml @ 125 mls/hr Q4H ONCE IV 03/31/17 16:45 03/31/17 20:44 DC 03/31/17 17:00 125 MLS/HR Sodium Chloride 1,000 ml @ 125 mls/hr Q8H ONCE IV 04/01/17 09:00 04/01/17 16:59 DC 04/01/17 09:07 125 MLS/HR Prednisone (PredniSONE TAB) 50 mg 1234 ONCE PO 04/01/17 12:34 04/01/17 12:41 DC 04/01/17 12:54 50 MG Methylprednisolone Sodium Succinate 40 mg/Syringe 0.64 ml @ 1.5 mls/min BID IV 04/02/17 09:00 05/02/17 08:59 04/02/17 08:31 1.5 MLS/MIN Heparin Sodium (Porcine) (Heparin Sq 5000 Unit/0.5ml) 5,000 unit Q12 SQ 04/01/17 21:00 05/01/17 20:59 Future Hold 04/02/17 08:38 5,000 UNIT Subjective Mr. Jordan looks uncomfortable, particularly when he lays flat. He denies feeling short of breath, but he has visibly obvious increased work of breathing. He has no pain or other complaints at this time. He apparently refused his brain MRI. Review of Systems: Constitutional: + fatigue, No fever, No sweats Respiratory: No cough, No shortness of breath Cardiovascular: No chest pain Abdomen: No pain Musculoskeletal: No joint pain, No muscle pain Heme: No abnormal bleeding/bruising Vital Signs Vital Signs Past 12 Hours Date Time Temp Pulse Resp B/P (MAP) Pulse Ox O2 Delivery O2 Flow Rate FiO2 04/02/17 12:00 Nasal Cannula 4.0 04/02/17 12:00 36.4 84 22 126/63 (84) 94 Nasal Cannula 4.0 04/02/17 11:18 97 20 95 Nasal Cannula 3.0 04/02/17 08:00 Nasal Cannula 4.0 04/02/17 07:48 36.5 95 18 133/47 (75) 98 04/02/17 07:04 95 20 97 Nasal Cannula 4.0 04/02/17 05:27 94 Nasal Cannula 4.0 Physical Exam Constitutional: General Apperance: obese Level of Distress: mild distress Psychiatric: Mental Status: active & alert Orientation: oriented except where noted ENMT: pharynx normal Lungs: Auscuitation: decreased breath sounds (in all [place]) Cardiovascular: Heart Auscultation: RRR Abdomen: Inspection & Palpation: soft, no tenderness, guarding & rebound Extremities: no edema Laboratory Last 24 Hours Test 04/01/17 20:13 04/02/17 02:30 04/02/17 06:36 04/02/17 07:09 Bedside Glucose 167 mg/dl 99 mg/dl 83 mg/dl White Blood Count 12.89 K/uL Red Blood Count 3.79 M/uL Hemoglobin 11.5 g/dL Hematocrit 35.6 % Mean Corpuscular Volume 93.9 fL Mean Corpuscular Hemoglobin 30.3 pg Mean Corpuscular Hemoglobin Concent 32.3 g/dl RDW Standard Deviation 46.1 fL RDW Coefficient of Variation 13.3 % Platelet Count 154 K/uL Mean Platelet Volume 9.5 fL Sodium Level 128 mmol/L Potassium Level 4.8 mmol/L Chloride Level 93 mmol/L Carbon Dioxide Level 30 mmol/L Anion Gap 5.0 mmol/L Blood Urea Nitrogen 89 mg/dl Creatinine 1.95 mg/dl Est Creatinine Clear Calc Drug Dose 44.7 ml/min Estimated GFR () 37.9 Estimated GFR (Non- 32.7 BUN/Creatinine Ratio 45.7 Random Glucose 73 mg/dl Calcium Level 7.8 mg/dl Test 04/02/17 11:25 Bedside Glucose 140 mg/dl Assessment & Plan Mr. Jordan appears to be symptomatic from his mediastinal mass and I think he will benefit from urgent treatment. I asked radiation oncology to see him today to evaluate him for radiation. I will also plan to begin IV chemotherapy tomorrow with carboplatin (AUC 4) and irinotecan (50 mg/m2), the latter given due to the etoposide shortage. He will continue treatment with me as an outpatient after this dose (the irinotecan is administered weekly for 3/4 weeks) . He will be transferred to a floor with oncology nursing. He will also require a port for chemo. If he tolerates treatment well, he can leave the day after chemo and will follow up in my clinic next week for his next dose.
--- NOTE | 2017-04-02 19:47 | Pulmonology Progress Note ---
Pulmonary Progress Note Date of Service Apr 02, 2017. Attending Dr. Alcala Subjective The patient is better, no pain, cough has been persistent, no sputum production , and denies shortness of breath. However he is minimally ambulatory. Objective Physical exam on 04/01/2017, the patient has diffuse wheezing bilaterally, using abdominal muscles for respiration, surgical wound after mediastinoscopy appeared healing, no JVP, abdomen is obese, benign, CCE. His physical exam on 04/02/2017 showed morbidly obese gentleman, does not appear to be in any distress, S1-S2 regular rate and rhythm, distant breath sounds, scattered rhonchi, no wheezing, abdomen is benign, edema in the periphery. Assessment & Plan #1 small cell lung CVA, extensive stage. #2 severe COPD, in exacerbation. #3 morbid obesity. #4 acute hypercapnic respiratory failure, resolved. The patient left with chronic hypercapnic respiratory failure. #5 postop mediastinoscopy. Plan: #1 change steroids to prednisone 60 mg by mouth daily and stop it after 5 days. No need for taper. #2 continue bronchodilators on a regular basis.prn. #3 oncology consult appreciated. #4 oral intake. #5 smoking cessation.. #6 continue DVT and GI prophylaxis. #7 glucose control. #8 no further recommendations from pulmonary standpoint, we'll sign off the case , please call me with any questions. Discussed with the staff on rounds and details, Data Medications: Current Inpatient Medications Medications (Trade) Dose Ordered Sig/Michel Route Start Time Stop Time Status Last Admin Dose Admin Acetaminophen (Tylenol Tab) 650 mg Q4H PRN PO 03/28/17 23:45 04/27/17 23:44 Al Hydrox/Mg Hydrox/Simethicone (Maalox Max Susp) 15 ml Q4H PRN PO 03/28/17 23:45 04/27/17 23:44 Magnesium Hydroxide (Milk Of Magnesia Susp) 30 ml Q6H PRN PO 03/28/17 23:45 04/27/17 23:44 Polyethylene (Miralax Powder Packet) 17 gm DAILY PRN PO 03/28/17 23:45 04/27/17 23:44 Ondansetron HCl (Zofran Inj) 4 mg Q6H PRN IV 03/28/17 23:45 04/27/17 23:44 Albuterol/ Ipratropium (Duoneb) 3 ml QIDR INH 03/29/17 08:00 04/28/17 07:59 04/02/17 19:11 3 ML Atorvastatin Calcium (Lipitor Tab) 40 mg DAILY PO 03/29/17 09:00 04/28/17 08:59 04/02/17 08:33 40 MG HCTZ/Lisinopril (Prinzide 20-25MG Tab) 1 tab DAILY PO 03/29/17 09:00 04/28/17 08:59 04/02/17 08:34 1 TAB Glucose (Glucose 40% Gel) 15-30 GRAMS 15 GRAMS... UD PRN PO 03/29/17 00:15 04/28/17 00:14 Glucose (Glucose Chew Tab) 4-8 Tablets 4 Tabl... UD PRN PO 03/29/17 00:15 04/28/17 00:14 Dextrose (Dextrose 50% 50ML Syringe) 25-50ML OF 50% DW IV FOR... UD PRN IV 03/29/17 00:15 04/28/17 00:14 Glucagon (Glucagon Inj) 1 mg UD PRN SQ 03/29/17 00:15 04/28/17 00:14 Nitroglycerin (Nitrostat Tab) 0.4 mg PRN PRN SL 03/29/17 00:15 04/28/17 00:14 Miscellaneous (Iv Fluids Completed) 1 ea PRN PRN N/A 03/29/17 00:30 03/29/18 00:29 Nicotine (Nicoderm Cq 21MG Patch) 1 patch QAM TD 03/29/17 09:00 04/28/17 08:59 04/02/17 08:38 1 PATCH Miscellaneous (Remove Nicoderm Patch) 1 ea HS N/A 03/29/17 21:00 04/28/17 20:59 03/31/17 20:38 1 EA Miscellaneous Information (Consult Glycemic Management Pharmacy) 1 ea UD N/A 03/29/17 17:59 04/28/17 17:58 Budesonide/ Formoterol Fumarate (Symbicort 160/ 4.5 Inh) 2 puffs BID INH 03/30/17 09:00 04/29/17 08:59 04/02/17 08:31 2 PUFFS Tiotropium [place] (Spiriva Handihaler Inhaler) 2 puff QAM INH 03/30/17 09:00 04/29/17 08:59 04/02/17 08:32 2 PUFF Morphine Sulfate (MoRPHine SULFATE INJ) 2 mg Q3H PRN IV 03/30/17 15:15 04/13/17 15:14 04/01/17 23:43 2 MG Oxycodone HCl (Roxicodone Immediate Rel Tab) 5 mg Q4H PRN PO 03/30/17 15:15 04/13/17 15:14 04/01/17 01:55 5 MG Insulin Aspart (novoLOG ASPART) SLIDING SCALE G... ACHS SC 03/31/17 06:45 04/30/17 00:00 04/02/17 18:32 8 UNITS Insulin Glargine (Lantus Vial) see protocol BID SC 03/31/17 21:00 04/30/17 20:59 04/02/17 08:38 20 UNITS Methylprednisolone Sodium Succinate 40 mg/Syringe 0.64 ml @ 1.5 mls/min BID IV 04/02/17 09:00 05/02/17 08:59 04/02/17 08:31 1.5 MLS/MIN Heparin Sodium (Porcine) (Heparin Sq 5000 Unit/0.5ml) 5,000 unit ONE ONCE SQ 04/02/17 20:00 04/02/17 20:01 Ondansetron HCl 16 mg/ Dexamethasone Sodium Phosphate 12 mg/Sodium Chloride 61 ml @ 180 mls/hr TODAY@1230 IV 04/03/17 12:30 04/03/17 18:00 Carboplatin 279 mg/Sodium Chloride 277.9 ml @ 555.8 mls/ hr TODAY@1300 IV 04/03/17 13:00 04/03/17 18:00 Irinotecan HCl 30 mg/Irinotecan HCl 100 mg/Dextrose 506.5 ml @ 337.667 mls/hr TODAY@1330 IV 04/03/17 13:30 04/03/17 18:00 Atropine Sulfate 0.4 mg/Syringe 1 ml @ 2 mls/min TODAY@1430 PRN IV 04/03/17 14:30 04/03/17 23:59 I & O: 24-Hour Column 04/03/17 07:59 Intake Total 220 ml Balance 220 ml Vital Signs: Date Time Temp Pulse Resp B/P (MAP) Pulse Ox O2 Delivery O2 Flow Rate FiO2 04/02/17 17:35 Nasal Cannula 4.0 04/02/17 12:00 Nasal Cannula 4.0 04/02/17 12:00 36.4 84 22 126/63 (84) 94 Nasal Cannula 4.0 04/02/17 11:18 97 20 95 Nasal Cannula 3.0 04/02/17 08:00 Nasal Cannula 4.0 04/02/17 07:48 36.5 95 18 133/47 (75) 98 04/02/17 07:04 95 20 97 Nasal Cannula 4.0 04/02/17 05:27 94 Nasal Cannula 4.0 04/02/17 04:00 Nasal Cannula 5.0 04/02/17 03:30 36.4 99 22 144/69 (94) 93 5.0 04/02/17 00:28 36.4 111 18 113/64 (80) 96 04/01/17 23:59 Nasal Cannula 4.0 04/01/17 20:00 Nasal Cannula 4.0 Laboratory Results: Last 24 Hours Test 04/01/17 20:13 04/02/17 02:30 04/02/17 06:36 04/02/17 07:09 Bedside Glucose 167 mg/dl 99 mg/dl 83 mg/dl White Blood Count 12.89 K/uL Red Blood Count 3.79 M/uL Hemoglobin 11.5 g/dL Hematocrit 35.6 % Mean Corpuscular Volume 93.9 fL Mean Corpuscular Hemoglobin 30.3 pg Mean Corpuscular Hemoglobin Concent 32.3 g/dl RDW Standard Deviation 46.1 fL RDW Coefficient of Variation 13.3 % Platelet Count 154 K/uL Mean Platelet Volume 9.5 fL Sodium Level 128 mmol/L Potassium Level 4.8 mmol/L Chloride Level 93 mmol/L Carbon Dioxide Level 30 mmol/L Anion Gap 5.0 mmol/L Blood Urea Nitrogen 89 mg/dl Creatinine 1.95 mg/dl Est Creatinine Clear Calc Drug Dose 44.7 ml/min Estimated GFR () 37.9 Estimated GFR (Non- 32.7 BUN/Creatinine Ratio 45.7 Random Glucose 73 mg/dl Calcium Level 7.8 mg/dl Test 04/02/17 11:25 2/22/18 18:21 Bedside Glucose 140 mg/dl 118 mg/dl
[2017-04-02] MEDS ORDERED: HEPARIN SOD 5000 UNIT/0.5 ML CARP SQ ONE (20:00)
[2017-04-02] MEDS: MoRPHine SULFATE 2 MG/ML CARP IV PRN (21:17)
[2017-04-03] VITALS (14 sets, daily range): BP systolic 126–161; BP diastolic 69–78; PULSE 88–104; TEMP 36.3–36.7; O2SAT 93–98
--- NOTE | 2017-04-03 06:27 | History & Physical Bridge Note ---
H&P Re-Evaluation Bridge Note: I have examined the patient, reviewed the History & Physical and in the interval since the performance of the History & Physical I have noted the following changes of clinical significance: No changes noted will proceed with a port placement r and c explained to pt
[2017-04-03] MEDS ORDERED: PROPOFOL IV EMULSION 10 MG/ML 20 ML VIAL IV ONE (06:48)
[2017-04-03] MEDS ORDERED: MIDAZOLAM HCL 1 MG/ML 2ML VIAL ONE (06:48)
[2017-04-03] MEDS ORDERED: FENTANYL CITRATE INJ 50 MCG/1 ML 2 ML VIAL ONE (06:49)
[2017-04-03] MEDS ORDERED: LIDOCAINE HCL 1% 20 ML VIAL ONE (06:56)
[2017-04-03] MEDS ORDERED: BACITRACIN 50000 UNIT VIAL ONE (06:57)
[2017-04-03 07:28] LABS: HEMATOCRIT 35.2 % (42-52); HEMOGLOBIN 11.8 g/dL (14.0-18.0); MEAN CELL VOLUME 94.1 fL (80-100); MEAN CORPUSCULAR HEMOGLOBIN 31.6 pg (25-34); MEAN CORPUSCULAR HGB CONC 33.5 g/dl (32-36); MEAN PLATELET VOLUME 9.2 fL (7.4-10.4); PLATELET COUNT 145 K/uL (130-400); RED CELL DISTRIBUTION WIDTH CV 13.6 % (11.5-14.5); WHITE BLOOD COUNT 8.01 K/uL (4.8-10.8)
[2017-04-03] MEDS ORDERED: CEFAZOLIN SOD 1 GM VIAL ONE (07:46)
[2017-04-03 07:53] LABS: CALCIUM 8.2 mg/dl (8.5-10.1); CREATININE 1.75 mg/dl (0.60-1.40); POTASSIUM 5.2 mmol/L (3.5-5.1)
[2017-04-03] MEDS: ALBUT/IPRATROP 3MG/0.5MG NEB 3 ML VIAL INH SCH ×4 (07:56→19:01)
[2017-04-03] MEDS ORDERED: ATROPINE SULFATE 0.1 MG/ML 5ML SYR IV PRN (08:00)
[2017-04-03] MEDS ORDERED: FENTANYL CITRATE INJ 50 MCG/1 ML 2 ML VIAL IV PRN (08:00)
[2017-04-03] MEDS ORDERED: ONDANSETRON INJ 2 MG/ML 2 ML VIAL IV PRN (08:00)
[2017-04-03] MEDS: INSULIN GLARGINE SC SCH ×3 (08:00→22:25)
[2017-04-03] MEDS: NICOTINE 21 MG/24 HR TDSY TD SCH (08:00)
[2017-04-03] MEDS ORDERED: EpHEDrine SULFATE INJ 50 MG/ML AMP IV PRN (08:00)
--- NOTE | 2017-04-03 08:28 | [facility] Post Operative Brief Note ---
Immediate Operative Summary Operative Date Apr 03, 2017. Pre-Operative Diagnosis Lung mass Post-Operative Diagnosis Lung mass Procedure(s) Performed mri port left cephalic Surgeon Dr. Wood Whipper Surgeon(s) none Estimated Blood Loss 5cc Findings See Below as preop Specimens none per surgeon Anesthesia Type General
--- NOTE | 2017-04-03 09:04 | DIAGNOSTIC IMAGING REPORT ---
CHEST ONE VIEW PORTABLE CLINICAL HISTORY: s/p mri port left cephalic COMPARISON STUDY: 11/27/2017 FINDINGS: Interval extubation. Placement of a left-sided catheter with tip of the juncture of the right atrium and superior vena cava. Right perimediastinal mass process is unaltered. Interstitial prominence of both lung bases is slightly improved compared to the prior exam. IMPRESSION: 1. Interval extubation. 2. Interval placement of a central catheter in the superior vena cava at its junction with the right atrium. 3. Improving basilar interstitial change The above report was generated using voice recognition software. It may contain grammatical, syntax or spelling errors. Electronically signed by: Madi Irvin M.D. 04/03/2017 9:03 AM Dictated Date/Time: 04/03/2017 9:01 AM
[2017-04-03] MEDS: ATORVASTATIN 40 MG TAB PO SCH (09:34)
[2017-04-03] MEDS: BUDESONIDE/FORMOTEROL FUMARATE 160/4.5 60 PUFFS/INHALER INH SCH ×3 (09:34→22:21)
[2017-04-03] MEDS: TIOTROPIUM BROMIDE 5 PUFF/90 MCG INH INH SCH (09:35)
[2017-04-03] MEDS: LISINOPRIL/HCTZ 20/25MG TAB PO SCH (09:37)
--- NOTE | 2017-04-03 09:39 | Anesthesiology Progress Note ---
Anesthesia Post Op Note Date & Time Apr 03, 2017 at 09:38 Vital Signs Pain Intensity: 0 Vital Signs Past 12 Hours Date Time Temp Pulse Resp B/P (MAP) Pulse Ox O2 Delivery O2 Flow Rate FiO2 04/03/17 09:31 36.3 88 22 126/69 (88) 94 Nasal Cannula 3.0 04/03/17 09:05 91 16 130/63 98 Nasal Cannula 4 04/03/17 08:55 90 16 138/66 100 Non-Rebreather 15 04/03/17 08:45 90 16 135/58 100 Non-Rebreather 15 04/03/17 08:35 36.6 92 16 127/61 100 Non-Rebreather 15 Arterial Line 04/03/17 07:15 100 24 141/62 (88) 91 Nasal Cannula 3 04/03/17 00:26 36.4 96 20 154/75 (101) 95 4.0 04/03/17 00:10 Nasal Cannula 4.0 Notes Mental Status: alert / awake / arousable, participated in evaluation Pt Amnestic to Procedure: Yes Nausea / Vomiting: adequately controlled Pain: adequately controlled Airway Patency, RR, SpO2: stable & adequate BP & HR: stable & adequate Hydration State: stable & adequate Anesthetic Complications: no major complications apparent Patient respiratory status compromised prior to surgery and afterwards he appears to be at the level prior to operation. Continued on supplemental oxygen. Ok for transfer to his tele bed.
[2017-04-03] MEDS: INSULIN ASPART 100 UNITS/ML 3 ML PEN SC SCH ×4 (09:44→21:27)
--- NOTE | 2017-04-03 09:56 | OPERATIVE REPORT ---
DATE OF OPERATION: 04/03/2017 SURGEON: Dr. Wood. PREOPERATIVE DIAGNOSIS: Lung cancer, need for venous access. POSTOPERATIVE DIAGNOSIS: Same. PROCEDURE: MRI compatible port through the left cephalic. SUMMARY: The patient was brought into the operating room. Actually, could only tolerate sitting up at about 45 degree angle at most at least to try to do not lying flat; therefore, he is quite obese, but we were able to prep his left chest and neck was scrubbed with solution and properly draped and systemic antibiotics was given. I made a small incision after local anesthetic at the level of the deltopectoral groove. We dissected down to the point that we found the deltopectoral groove. He is obese, but we were able to get down to the area and identified a very nice vein. We controlled it proximally with 2-0 silk and distally with a Tamiko like 2-0 silk. At this point, I directly accessed the vein with the needle followed by the guidewire fluoroscopically as best as we could tell us the patient could not lay flat, we were in proper position, the guidewire seemed to be in superior vena cava area. At this point, I elected just to dilate the tract with an introducer followed by the catheter that we positioned and it appeared to be in the right atrial area. We controlled the proximal area where the Tamiko tied distally, I elected just and tied the cephalic vein. Once this had been performed, there seemed to be adequate position at approximately about 30-35 cm from the skin edge to the atrial area which as best we could tell was probably appropriate for this patient. We then created a pocket just inferior to that sufficient enough to place the reservoir. We denuded some subcutaneous fat so we could actually palpate the prongs of the reservoir. We cut the catheter at about 35 cm, placed a black bolster and secured it on the reservoir, aspirated and flushed quite easily. We placed in the previously made pocket, suturing at its eyes with a 2-0 nylon suture. The area appeared quite hemostatic. We closed the wound in multiple layer 2-0 and 3-0 Dexon, 4-0 Monocryl. Steri-Strips applied. Prior to leaving the room, we accessed, aspirated and flushed easily and then I put an access needle and the reservoir, 2 x 2 and Op-Site dressings. The procedure was tolerated well by the patient. Estimated blood loss approximately 5 mL. The patient was taken to recovery room in good condition. I attest to the content of the Intraoperative Record and any orders documented therein. Any exception s are noted below.
[2017-04-03 12:11] LABS: IG# 0.02 K/uL (0.00-0.02); LYMPH % 2.6 %; LYMPH ABS # 0.21 K/uL (1.2-3.4); MONO % 5.7 %; MONO ABS # 0.47 K/uL (0.11-0.59); NEUT % 91.5 %; NEUT ABS # 7.53 K/uL (1.4-6.5)
[2017-04-03] MEDS ORDERED: DEXAMETHASONE IV SCH ×6 (12:30)
[2017-04-03] MEDS ORDERED: SODIUM CHLORIDE 0.9% IV SCH ×10 (12:30→13:00)
[2017-04-03] MEDS ORDERED: ONDANSETRON IV SCH ×6 (12:30)
[2017-04-03] MEDS: METHYLPREDNISOLONE IV 40 MG in SYRINGE 0 ML IV SCH ×3 (12:41→22:22)
[2017-04-03] MEDS ORDERED: CARBOPLATIN IV SCH ×4 (13:00)
--- NOTE | 2017-04-03 13:27 | Pharmacy Progress Note ---
Pharmacy Glycemic Short Note 2 Date of Service Apr 03, 2017. Outpatient Anti-diabetic Regimen: * Novolin 70/30 95 units SQ BID * A1c = 8.6% (03/30/17) ASSESSMENT: * Mr Jordan is a 76 y/o M with a PMH of uncontrolled COPD, smoking history, CKD stage 3, and uncontrolled type 2 diabetes (goal HbA1C is 7.6-8.0% per the Elements of Diabetes Care Scoring Scale). He presents with SOB and lung mass. Currently starting chemotherapy with irinotecan and carboplatin. Patient will receive dexamethasone 12 mg IV prior to chemotherapy. Also receiving Solu- Medrol 40 mg IV q12 hours. * When previously on Solu-Medrol ... patient required around 150-200 units of insulin. This decreased to about 100 units on prednisone. With the addition of dexamethasone, the patient's insulin requirements are expected to increase exponentially. * For Lantus, increased scale to minimum of 40 units and maximum of 60 units. This would reflect the patient's outpatient dose of 190 units stressed with a factor of 2 (Lantus 62 units BID, correction factor of 5 and carbohydrate ratio of 2) at the maximum and at the minimum is slightly higher than what the patient required with prednisone 50 mg PO daily. * For Novolog, tightened slightly to correction factor of 7 (utilized previously with Solu-Medrol q4) and carbohydrate ratio of 2 ... slightly tighter than previously used but appropriate with dexamethasone. Expect to decrease doses over the next few days. PLAN FOR INPATIENT GLYCEMIC CONTROL: * Continue Lantus SQ BID per scale: * 40 units if BSG less than 120 * 50 units if BSG 120-180 * 60 units if BSG above 180 * Continue correction factor of 7 mg/dl/unit * Continue carb ratio to 1 unit per 2 grams CHO consumed * Continue goal range of Low 120 mg/dL - High 150 mg/dL PLAN FOR DISCHARGE: * Current A1c (8.6%) suggests slightly sub-optimal glycemic control as an outpatient. * Patient is not necessarily compliant with his insulin, and is quite set in his ways. * CDE has seen patient, but he was not really open to discussing changes to his diabetes management. * refer to their note * Recommend f/u with PCP and an attempt at stabilizing his regimen and optimizing A1c. * Please note that the plan above was derived based on current level of insulin resistance and hospital stress. These recommendations are appropriate for inpatient admission only. Plan of care upon discharge will need to be reassessed to avoid potential outpatient hypo/hyperglycemia. Thank you.
[2017-04-03] MEDS ORDERED: IRINOTECAN IV SCH ×2 (13:30)
[2017-04-03] MEDS ORDERED: DEXTROSE 5% IV SCH ×2 (13:30)
[2017-04-03] MEDS ORDERED: ATROPINE SULFATE IV PRN (14:30)
--- NOTE | 2017-04-03 16:53 | Hematology/Oncology Prog Note ---
Hematology/Onc Progress Note Date of Service Apr 03, 2017. Diagnoses Small cell lung cancer Medications Medications Administered Medications (Trade) Dose Ordered Sig/Michel Route Start Time Stop Time Status Last Admin Dose Admin Albuterol/ Ipratropium (Duoneb) 3 ml NOW STAT INH 03/28/17 18:17 03/28/17 18:18 DC 03/28/17 18:32 3 ML Albuterol/ Ipratropium (Duoneb) 3 ml QIDR INH 03/29/17 08:00 04/28/17 07:59 04/03/17 16:07 3 ML Aspirin (Ecotrin Tab) 81 mg DAILY PO 03/29/17 09:00 04/02/17 19:40 DC 03/29/17 08:34 81 MG Atorvastatin Calcium (Lipitor Tab) 40 mg DAILY PO 03/29/17 09:00 04/28/17 08:59 04/03/17 09:34 40 MG HCTZ/Lisinopril (Prinzide 20-25MG Tab) 1 tab DAILY PO 03/29/17 09:00 04/28/17 08:59 04/03/17 09:37 1 TAB Methylprednisolone Sodium Succinate (Solu-Medrol IV) 125 mg NOW STAT IV 03/28/17 23:52 03/28/17 23:58 DC 03/29/17 01:21 125 MG Methylprednisolone Sodium Succinate 40 mg/Syringe 0.64 ml @ 1.5 mls/min Q8H IV 03/29/17 08:00 03/30/17 17:09 DC 03/30/17 08:43 1.5 MLS/MIN Insulin Aspart (novoLOG ASPART) SLIDING SCALE G... ACHS SC 03/29/17 04:00 03/30/17 21:37 DC 03/30/17 20:23 5 UNITS Insulin Glargine (Lantus Vial) 65 units BID SC 03/29/17 09:00 03/29/17 18:14 DC 03/29/17 08:39 65 UNITS Insulin Human Regular 5 units/ Syringe 5 ml @ 30 mls/min TODAY@0115 IV 03/29/17 01:15 03/29/17 01:16 DC 03/29/17 01:39 30 MLS/MIN Insulin Aspart (novoLOG ASPART) SLIDING SCALE G... ONE ONCE SC 03/29/17 01:15 03/29/17 01:16 DC 03/29/17 02:42 17 UNITS Insulin Glargine (Lantus Vial) 65 units ONE ONCE SC 03/29/17 01:15 03/29/17 01:16 DC 03/29/17 02:43 65 UNITS Nicotine (Nicoderm Cq 21MG Patch) 1 patch QAM TD 03/29/17 09:00 04/28/17 08:59 04/02/17 08:38 1 PATCH Miscellaneous (Remove Nicoderm Patch) 1 ea HS N/A 03/29/17 21:00 04/28/17 20:59 03/31/17 20:38 1 EA Perflutren Lipid Microsphere (Definity) 2 ml ONE ONCE IV 03/29/17 15:04 03/29/17 15:05 DC 03/29/17 15:05 2 ML Insulin Glargine (Lantus Vial) 80 units BID SC 03/29/17 21:00 03/30/17 10:20 DC 03/29/17 21:00 80 UNITS Insulin Glargine (Lantus Vial) 15 units NOW ONCE SC 03/29/17 18:15 03/29/17 18:16 DC 03/29/17 18:24 15 UNITS Insulin Aspart (novoLOG ASPART) SLIDING SCALE G... DAILY@0000,0400 SC 03/30/17 00:00 03/30/17 04:01 DC 03/30/17 00:13 20 UNITS Lorazepam 0.5 mg/ Syringe 0.5 ml @ 0.5 mls/min TODAY@2330 ONCE IV 03/29/17 23:30 03/29/17 23:31 DC 03/29/17 23:44 0.5 MLS/MIN Budesonide/ Formoterol Fumarate (Symbicort 160/ 4.5 Inh) 2 puffs BID INH 03/30/17 09:00 04/29/17 08:59 04/03/17 09:34 2 PUFFS Tiotropium [place] (Spiriva Handihaler Inhaler) 2 puff QAM INH 03/30/17 09:00 04/29/17 08:59 04/03/17 09:35 2 PUFF Morphine Sulfate (MoRPHine SULFATE INJ) 2 mg Q3H PRN IV 03/30/17 15:15 04/13/17 15:14 04/02/17 21:17 2 MG Oxycodone HCl (Roxicodone Immediate Rel Tab) 5 mg Q4H PRN PO 03/30/17 15:15 04/13/17 15:14 04/01/17 01:55 5 MG Methylprednisolone Sodium Succinate 40 mg/Syringe 0.64 ml @ 1.5 mls/min Q4 IV 03/30/17 20:00 03/31/17 08:15 DC 03/31/17 04:25 1.5 MLS/MIN Fentanyl Citrate (Fentanyl Inj) 100 mcg STK-MED ONCE .ROUTE 03/30/17 17:42 03/30/17 17:43 DC 03/30/17 18:01 50 MCG Ipratropium [place] (Atrovent Hfa Inhaler) 4 puffs QIDR INH 03/30/17 20:00 03/30/17 23:13 DC 03/30/17 19:49 4 PUFFS Albuterol (Ventolin Hfa Inhaler) 4 puffs QIDR INH 03/30/17 20:00 03/30/17 23:13 DC 03/30/17 19:49 4 PUFFS Fentanyl Citrate (Fentanyl Inj) 25 mcg Q2H PRN IV 03/30/17 20:15 03/31/17 08:16 DC 03/30/17 20:45 25 MCG Insulin Aspart (novoLOG ASPART) SLIDING SCALE G... ACHS SC 03/31/17 06:45 04/30/17 00:00 04/03/17 12:49 21 UNITS Insulin Aspart (novoLOG ASPART) SLIDING SCALE G... TODAY@0400 ONCE SC 03/31/17 04:00 03/31/17 04:01 DC 03/31/17 04:24 6 UNITS Insulin Aspart (novoLOG ASPART) SLIDING SCALE G... NOW STAT SC 03/31/17 00:39 03/31/17 00:40 DC 03/31/17 00:51 8 UNITS Insulin Glargine (Lantus Vial) 60 units BID SC 03/31/17 09:00 03/31/17 15:22 DC 03/31/17 08:31 60 UNITS Methylprednisolone Sodium Succinate 40 mg/Syringe 0.64 ml @ 1.5 mls/min Q12H IV 03/31/17 09:00 03/31/17 21:01 DC 03/31/17 20:36 1.5 MLS/MIN Insulin Glargine (Lantus Vial) see protocol BID SC 03/31/17 21:00 04/30/17 20:59 04/03/17 08:00 50 UNITS Insulin Aspart (novoLOG ASPART) SLIDING SCALE G... TODAY@0000,0400 SC 04/01/17 00:00 04/01/17 12:51 DC 04/01/17 00:21 21 UNITS Sodium Chloride 500 ml @ 125 mls/hr Q4H ONCE IV 03/31/17 16:45 03/31/17 20:44 DC 03/31/17 17:00 125 MLS/HR Sodium Chloride 1,000 ml @ 125 mls/hr Q8H ONCE IV 04/01/17 09:00 04/01/17 16:59 DC 04/01/17 09:07 125 MLS/HR Prednisone (PredniSONE TAB) 50 mg 1234 ONCE PO 04/01/17 12:34 04/01/17 12:41 DC 04/01/17 12:54 50 MG Methylprednisolone Sodium Succinate 40 mg/Syringe 0.64 ml @ 1.5 mls/min BID IV 04/02/17 09:00 05/02/17 08:59 04/03/17 12:41 1.5 MLS/MIN Heparin Sodium (Porcine) (Heparin Sq 5000 Unit/0.5ml) 5,000 unit Q12 SQ 04/01/17 21:00 04/02/17 19:40 DC 04/02/17 08:38 5,000 UNIT Heparin Sodium (Porcine) (Heparin Sq 5000 Unit/0.5ml) 5,000 unit ONE ONCE SQ 04/02/17 20:00 04/02/17 20:01 DC 04/02/17 20:12 5,000 UNIT Ondansetron HCl 16 mg/ Dexamethasone Sodium Phosphate 12 mg/Sodium Chloride 61 ml @ 180 mls/hr TODAY@1230 IV 04/03/17 12:30 04/03/17 18:00 04/03/17 13:53 180 MLS/HR Carboplatin 279 mg/Sodium Chloride 277.9 ml @ 555.8 mls/ hr TODAY@1300 IV 04/03/17 13:00 04/03/17 18:00 04/03/17 14:45 555.8 MLS/HR Irinotecan HCl 30 mg/Irinotecan HCl 100 mg/Dextrose 506.5 ml @ 337.667 mls/hr TODAY@1330 IV 04/03/17 13:30 04/03/17 18:00 04/03/17 15:37 337.667 MLS/HR Lidocaine HCl (Xylocaine 1% Inj (Local)) 40 ml STK-MED ONCE .ROUTE 04/03/17 06:56 04/03/17 06:57 DC 04/03/17 08:15 40 ML Heparin Sodium (Porcine) (Heparin 100 Unit/ml 5ml Flush) 25 ml STK-MED ONCE .ROUTE 04/03/17 06:56 04/03/17 06:57 DC 04/03/17 06:56 20 ML Subjective Mr. Jordan looks similarly uncomfortable today. He was simulated for RT and apparently received a treatment yesterday as well. He went for his port today and then to RT afterward, but wasn't able to tolerate treatment. He is better now, but still uncomfortable. He likely isn't going to look much better until we get some control of his tumor. He will proceed with chemo today. He will receive carboplatin (AUC 4) and irinotecan (50 mg/m2) today. He will then return to my office next Thursday and the Thursday after for doses of irinotecan. Please provide him with oral antiemetics as needed, though he will also receive IV therapy with chemo. I will check in on him tomorrow. Provided he tolerates treatment well and is looking stable, he can likely go home. However, if there is question about his breathing, he might benefit from staying more time to have some more RT. He will likely be strongly opposed to this, however. Vital Signs Vital Signs Past 12 Hours Date Time Temp Pulse Resp B/P (MAP) Pulse Ox O2 Delivery O2 Flow Rate FiO2 04/03/17 16:11 36.4 98 18 156/78 (104) 96 Nasal Cannula 2.0 04/03/17 16:07 97 24 97 Nasal Cannula 2.0 04/03/17 15:26 36.4 101 16 138/69 (92) 93 Room Air 2.0 04/03/17 15:08 36.3 99 16 142/75 (97) 95 Nasal Cannula 2.0 04/03/17 14:46 36.7 104 16 161/73 (102) 95 Nasal Cannula 3.0 04/03/17 13:00 Nasal Cannula 3.0 Humidified Oxygen 04/03/17 11:15 102 20 95 Nasal Cannula 2.0 04/03/17 09:45 Nasal Cannula 3.0 04/03/17 09:31 36.3 88 22 126/69 (88) 94 Nasal Cannula 3.0 04/03/17 09:05 91 16 130/63 98 Nasal Cannula 4 04/03/17 08:55 90 16 138/66 100 Non-Rebreather 15 04/03/17 08:45 90 16 135/58 100 Non-Rebreather 15 04/03/17 08:35 36.6 92 16 127/61 100 Non-Rebreather 15 Arterial Line 04/03/17 08:00 Nasal Cannula 3.0 04/03/17 07:15 100 24 141/62 (88) 91 Nasal Cannula 3 Physical Exam Constitutional: General Apperance: obese Level of Distress: mild distress Psychiatric: Mental Status: active & alert Orientation: oriented except where noted ENMT: pharynx normal Lungs: Auscuitation: decreased breath sounds (in all [place]) Cardiovascular: Heart Auscultation: RRR Abdomen: Inspection & Palpation: soft, no tenderness, guarding & rebound Extremities: no edema Assessment & Plan Mr. Jordan appears to be symptomatic from his mediastinal mass and I think he will benefit from urgent treatment. I asked radiation oncology to see him today to evaluate him for radiation. I will also plan to begin IV chemotherapy tomorrow with carboplatin (AUC 4) and irinotecan (50 mg/m2), the latter given due to the etoposide shortage. He will continue treatment with me as an outpatient after this dose (the irinotecan is administered weekly for 3/4 weeks) . He will be transferred to a floor with oncology nursing. He will also require a port for chemo. If he tolerates treatment well, he can leave the day after chemo and will follow up in my clinic next week for his next dose.
--- NOTE | 2017-04-03 18:25 | Family Medicine Progress Note ---
Progress Note Date of Service Apr 03, 2017. Subjective Pt evaluation today including: conversation w/ patient, conversation w/ family , physical exam, chart review, lab review, review of studies, conversation w/ foreign legal consultant, review of inpatient medication list Pain: Patient reports some discomfort at port placement site Voiding: no voiding problems Patient struggling with ventilation at time of visit. He is "loopy" per family in room and is oriented to self and year and states he feels "high." Respiratory: + wheezing, + shortness of breath, + dyspnea at rest Cardiovascular: No chest pain, No orthopnea, No PND, No edema, No claudication, No palpitations, No problem reported Additional Comments: Patient disoriented and therefore unable to assess full ROS Medications Current Inpatient Medications Medications (Trade) Dose Ordered Sig/Michel Route Start Time Stop Time Status Last Admin Dose Admin Acetaminophen (Tylenol Tab) 650 mg Q4H PRN PO 03/28/17 23:45 04/27/17 23:44 Al Hydrox/Mg Hydrox/Simethicone (Maalox Max Susp) 15 ml Q4H PRN PO 03/28/17 23:45 04/27/17 23:44 Magnesium Hydroxide (Milk Of Magnesia Susp) 30 ml Q6H PRN PO 03/28/17 23:45 04/27/17 23:44 Polyethylene (Miralax Powder Packet) 17 gm DAILY PRN PO 03/28/17 23:45 04/27/17 23:44 Ondansetron HCl (Zofran Inj) 4 mg Q6H PRN IV 03/28/17 23:45 04/27/17 23:44 Albuterol/ Ipratropium (Duoneb) 3 ml QIDR INH 03/29/17 08:00 04/28/17 07:59 04/03/17 19:01 3 ML Atorvastatin Calcium (Lipitor Tab) 40 mg DAILY PO 03/29/17 09:00 04/28/17 08:59 04/03/17 09:34 40 MG HCTZ/Lisinopril (Prinzide 20-25MG Tab) 1 tab DAILY PO 03/29/17 09:00 04/28/17 08:59 04/03/17 09:37 1 TAB Glucose (Glucose 40% Gel) 15-30 GRAMS 15 GRAMS... UD PRN PO 03/29/17 00:15 04/28/17 00:14 Glucose (Glucose Chew Tab) 4-8 Tablets 4 Tabl... UD PRN PO 03/29/17 00:15 04/28/17 00:14 Dextrose (Dextrose 50% 50ML Syringe) 25-50ML OF 50% DW IV FOR... UD PRN IV 03/29/17 00:15 04/28/17 00:14 Glucagon (Glucagon Inj) 1 mg UD PRN SQ 03/29/17 00:15 04/28/17 00:14 Nitroglycerin (Nitrostat Tab) 0.4 mg PRN PRN SL 03/29/17 00:15 04/28/17 00:14 Miscellaneous (Iv Fluids Completed) 1 ea PRN PRN N/A 03/29/17 00:30 03/29/18 00:29 Nicotine (Nicoderm Cq 21MG Patch) 1 patch QAM TD 03/29/17 09:00 04/28/17 08:59 04/02/17 08:38 1 PATCH Miscellaneous (Remove Nicoderm Patch) 1 ea HS N/A 03/29/17 21:00 04/28/17 20:59 04/03/17 21:00 1 EA Miscellaneous Information (Consult Glycemic Management Pharmacy) 1 ea UD N/A 03/29/17 17:59 04/28/17 17:58 Budesonide/ Formoterol Fumarate (Symbicort 160/ 4.5 Inh) 2 puffs BID INH 03/30/17 09:00 04/29/17 08:59 04/03/17 22:21 2 PUFFS Tiotropium [place] (Spiriva Handihaler Inhaler) 2 puff QAM INH 03/30/17 09:00 04/29/17 08:59 04/03/17 09:35 2 PUFF Morphine Sulfate (MoRPHine SULFATE INJ) 2 mg Q3H PRN IV 03/30/17 15:15 04/13/17 15:14 04/02/17 21:17 2 MG Oxycodone HCl (Roxicodone Immediate Rel Tab) 5 mg Q4H PRN PO 03/30/17 15:15 04/13/17 15:14 04/01/17 01:55 5 MG Insulin Aspart (novoLOG ASPART) SLIDING SCALE G... ACHS SC 03/31/17 06:45 04/30/17 00:00 04/03/17 21:27 4 UNITS Insulin Glargine (Lantus Vial) see protocol BID SC 03/31/17 21:00 04/30/17 20:59 04/03/17 22:25 4 UNITS Methylprednisolone Sodium Succinate 40 mg/Syringe 0.64 ml @ 1.5 mls/min BID IV 04/02/17 09:00 05/02/17 08:59 04/03/17 22:22 1.5 MLS/MIN Atropine Sulfate 0.4 mg/Syringe 1 ml @ 2 mls/min TODAY@1430 PRN IV 04/03/17 14:30 04/03/17 23:59 Heparin Sodium (Porcine) (Heparin Sq 5000 Unit/0.5ml) 5,000 unit Q12 SQ 04/03/17 21:00 05/03/17 20:59 04/03/17 21:28 5,000 UNIT Insulin Aspart (novoLOG ASPART) SLIDING SCALE G... 0200 ONCE SC 04/04/17 02:00 04/04/17 02:01 Objective Vital Signs Date Time Temp Pulse Resp B/P (MAP) Pulse Ox O2 Delivery O2 Flow Rate FiO2 04/03/17 20:20 BiPAP 45 04/03/17 19:07 36.5 93 21 157/77 (103) 98 BiPAP 45 04/03/17 19:02 93 97 45 04/03/17 19:02 98 24 97 BiPAP/CPAP 45 04/03/17 17:50 100 97 45 04/03/17 17:00 36.7 98 18 154/76 (102) 95 Nasal Cannula 2.0 04/03/17 16:11 36.4 98 18 156/78 (104) 96 Nasal Cannula 2.0 04/03/17 16:07 97 24 97 Nasal Cannula 2.0 04/03/17 15:26 36.4 101 16 138/69 (92) 93 Room Air 2.0 04/03/17 15:08 36.3 99 16 142/75 (97) 95 Nasal Cannula 2.0 04/03/17 14:46 36.7 104 16 161/73 (102) 95 Nasal Cannula 3.0 04/03/17 13:00 Nasal Cannula 3.0 Humidified Oxygen 04/03/17 11:15 102 20 95 Nasal Cannula 2.0 04/03/17 09:45 Nasal Cannula 3.0 04/03/17 09:31 36.3 88 22 126/69 (88) 94 Nasal Cannula 3.0 04/03/17 09:05 91 16 130/63 98 Nasal Cannula 4 04/03/17 08:55 90 16 138/66 100 Non-Rebreather 15 04/03/17 08:45 90 16 135/58 100 Non-Rebreather 15 04/03/17 08:35 36.6 92 16 127/61 100 Non-Rebreather 15 Arterial Line 04/03/17 08:00 Nasal Cannula 3.0 04/03/17 07:15 100 24 141/62 (88) 91 Nasal Cannula 3 04/03/17 00:26 36.4 96 20 154/75 (101) 95 4.0 04/03/17 00:10 Nasal Cannula 4.0 Physical Exam General Appearance: WD/WN, + moderate distress, + obese Eyes: normal inspection, PERRL, EOMI, sclerae normal ENT: hearing grossly normal Neck: supple, no carotid bruits, trachea midline Respiratory/Chest: chest non-tender, + respiratory distress, + decreased breath sounds, + accessory muscle use Cardiovascular: regular rate, rhythm, no gallop, no JVD, no murmur Abdomen: normal bowel sounds, non tender, soft, + distended (obese) Extremities: + pedal edema, + pertinent finding (Chronic skin changes on LE bilaterally, likely venous insufficiency; SKs on trunk) Neurologic/Psychiatric: 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 machine II-XII nml as tested, no motor/sensory deficits, normal mood/affect, + disoriented, + pertinent finding (Patient somnolent, but arousable) Skin: normal color Laboratory Results Last Resulted 04/03/17 06:50 Red Blood Count 3.74, Mean Corpuscular Volume 94.1, Mean Corpuscular Hemoglobin 31.6, Mean Corpuscular Hemoglobin Concent 33.5, Mean Platelet Volume 9.2, Neutrophils (%) (Auto) 91.5, Lymphocytes (%) (Auto) 2.6, Monocytes (%) (Auto) 5.7, Eosinophils (%) (Auto) 0.0, Basophils (%) (Auto) 0.0, Neutrophils # (Auto) 7.53, Lymphocytes # (Auto) 0.21, Monocytes # (Auto) 0.47, Eosinophils # (Auto) 0.00, Basophils # (Auto) 0.00 Last Resulted 04/03/17 06:50 Assessment and Plan 76 y/o M PMH hypertension, CKD, AAA, CAD, uncontrolled COPD, tobacco abuse, T2DM. Here for dyspnea found to have lung mass on CT with subsequent path result of small cell lung ca. Of note, pt has expressed a strong aversion to being in the hospital, but has been mostly amenable to all interventions and diagnostics thus far. Radiation started but patient had difficulty completing on day 2. Started chemo on 04/03 after port placement. Patient became somnolent with increase WOB on 04/03 small cell lung cancer - CT shows: Right suprahilar mass with mediastinal extension 7.3 x 5.2 cm. This mass extends across the midline and likely abuts the anterior aspect of the adrienne. This mass results in significant narrowing of several right upper lobe bronchi. There are multiple enlarged mediastinal lymph nodes. A 4 mm right lower lobe nodule is similar to CT of February 13, 2011 and is likely benign. - CT Surg consulted - Dr. Davenport took for mediastinoscopy - path shows small cell - given oncology input and airway compromise - for inpatient chemo to start today, then weekly with Dr. Ambriz - Appreciate heme/onc recommendations - rad/onc consult and radiation started yesterday; moved to 4th floor - Consulted gen/surg for port placement tomorrow prior to chemo today; aware of prior difficulty with mediastinoscopy. - Heparin restarted tonight - Patient seemed to have difficulty ventilating late this afternoon and increasing somnolence/confusion. Restarted bipap; CXR and abg obtained ABG reassuring in sense that close to his "baseline". CXR showed some increasing vasculature markings; given 40 mg lasix Continue Bipap overnight. Acute on chronic SOB/COPD - strongly suspect chronic respiratory failure related to COPD - likely to need O2 all the time - will 2 step prior to discharge CKD 3B - Improved slightly today, appearing prerenal - ACEi and HCTZ have been stopped - IVF and follow - suspect cor pulmonale / pulmonary HTN is what led to him appearing swollen despite also appearing intravascular volume depleted Hyperglycemia, T2DM - continue to follow on insulins with steroids - improved control in last few days Hypertension -holding ZEKE and thiazide, follow BP off those Hyperlipidemia - continue atorvastatin 40mg daily CAD - held ASA 81mg tab daily; can restart tomorrow AM Tobacco abuse - nicotine 21 mg patch TD QAM. DVT ppx heparin SQ Code: full Dispo tele after difficulty with ventilation this pm. Resident Physician Supervision Note: I interviewed and examined the patient. Discussed with Dr. Roberts and agree with findings and plan as documented in the note. Any exceptions or clarifications are listed here: None Documented By: Mason Angelo more sob - bipap started then feeling better no fevers did have some chills vitals noted, breathing on bipap initially midl distress then less. coarse bs b /l R far worse than L; later on re examining still asymmetric but more clear ABG, CXR personally reviewed, d/w R1, reviewed radiology reports acute mixed respiratory failure -hypercapnea from OHS, hypoxia likely both OHS and pulmonary edema (acute on ? chronic undefined CHF as echo unable to see much more than presence of cardiac activity) -bipap -diurese -tele otherwise as above Resident Tracking Resident Involvement: Resident Care Provided Care Provided: Adult Hospital Medicine
--- NOTE | 2017-04-03 18:45 | DIAGNOSTIC IMAGING REPORT ---
CHEST ONE VIEW PORTABLE CLINICAL HISTORY: hypoxia, asymmetric exam ?infiltrate vs fluid COMPARISON STUDY: 04/03/2017 FINDINGS: The cardiac and mediastinal contours remain stable. There is a right be spinal mass, similar to the prior study. There is a left-sided A-Port catheter. There is mild diffuse elevation of the interstitium right greater than left. While likely representing asymmetric pulmonary edema, an interstitial inflammatory process or drug reaction could appear similar. IMPRESSION: 1. Stable mediastinal mass 2. Increased interstitial markings, likely representing asymmetric pulmonary edema. Clinical and radiographic follow-up is recommended Electronically signed by: Ranjit Nelson M.D. 04/03/2017 6:44 PM Dictated Date/Time: 04/03/2017 6:43 PM
[2017-04-03] MEDS ORDERED: FUROSEMIDE INJ 40 MG in SYRINGE 0 ML IV ONE (20:00)
[2017-04-03] MEDS: HEPARIN SOD 5000 UNIT/0.5 ML CARP SQ SCH (21:28)
[2017-04-04] VITALS (12 sets, daily range): BP systolic 126–178; BP diastolic 53–82; PULSE 88–102; TEMP 36.4–36.6; O2SAT 92–99
[2017-04-04] MEDS ORDERED: INSULIN ASPART 100 UNITS/ML 3 ML PEN SC ONE (02:00)
[2017-04-04] MEDS: ALBUT/IPRATROP 3MG/0.5MG NEB 3 ML VIAL INH SCH ×4 (07:33→19:55)
[2017-04-04 08:10] LABS: HEMATOCRIT 35.9 % (42-52); HEMOGLOBIN 11.9 g/dL (14.0-18.0); MEAN CELL VOLUME 94.7 fL (80-100); MEAN CORPUSCULAR HEMOGLOBIN 31.4 pg (25-34); MEAN CORPUSCULAR HGB CONC 33.1 g/dl (32-36); MEAN PLATELET VOLUME 9.4 fL (7.4-10.4); PLATELET COUNT 140 K/uL (130-400); RED CELL DISTRIBUTION WIDTH CV 13.5 % (11.5-14.5); RED CELL DISTRIBUTION WIDTH SD 46.7 fL (36.4-46.3); WHITE BLOOD COUNT 7.55 K/uL (4.8-10.8)
[2017-04-04] MEDS: INSULIN ASPART 100 UNITS/ML 3 ML PEN SC SCH ×4 (08:10→20:34)
[2017-04-04] MEDS: INSULIN GLARGINE SC SCH ×2 (08:11→20:37)
[2017-04-04] MEDS: TIOTROPIUM BROMIDE 5 PUFF/90 MCG INH INH SCH (08:14)
[2017-04-04] MEDS: BUDESONIDE/FORMOTEROL FUMARATE 160/4.5 60 PUFFS/INHALER INH SCH ×2 (08:15→20:36)
[2017-04-04] MEDS: ASPIRIN 81 MG ECTAB PO SCH (08:15)
[2017-04-04] MEDS: ATORVASTATIN 40 MG TAB PO SCH (08:15)
[2017-04-04] MEDS: METHYLPREDNISOLONE IV 40 MG in SYRINGE 0 ML IV SCH ×2 (08:15→20:36)
[2017-04-04] MEDS: LISINOPRIL/HCTZ 20/25MG TAB PO SCH (08:16)
[2017-04-04] MEDS: HEPARIN SOD 5000 UNIT/0.5 ML CARP SQ SCH ×2 (08:17→20:38)
[2017-04-04] MEDS: NICOTINE 21 MG/24 HR TDSY TD SCH (08:18)
[2017-04-04 08:50] LABS: CALCIUM 8.2 mg/dl (8.5-10.1); CREATININE 1.84 mg/dl (0.60-1.40); POTASSIUM 5.1 mmol/L (3.5-5.1)
--- NOTE | 2017-04-04 12:15 | Hematology/Oncology Prog Note ---
Hematology/Onc Progress Note Date of Service Apr 04, 2017. Diagnoses Small cell lung cancer Medications Medications Administered Medications (Trade) Dose Ordered Sig/Michel Route Start Time Stop Time Status Last Admin Dose Admin Albuterol/ Ipratropium (Duoneb) 3 ml NOW STAT INH 03/28/17 18:17 03/28/17 18:18 DC 03/28/17 18:32 3 ML Albuterol/ Ipratropium (Duoneb) 3 ml QIDR INH 03/29/17 08:00 04/28/17 07:59 04/04/17 11:22 3 ML Aspirin (Ecotrin Tab) 81 mg DAILY PO 03/29/17 09:00 04/02/17 19:40 DC 03/29/17 08:34 81 MG Atorvastatin Calcium (Lipitor Tab) 40 mg DAILY PO 03/29/17 09:00 04/28/17 08:59 04/04/17 08:15 40 MG HCTZ/Lisinopril (Prinzide 20-25MG Tab) 1 tab DAILY PO 03/29/17 09:00 04/28/17 08:59 04/04/17 08:16 1 TAB Methylprednisolone Sodium Succinate (Solu-Medrol IV) 125 mg NOW STAT IV 03/28/17 23:52 03/28/17 23:58 DC 03/29/17 01:21 125 MG Methylprednisolone Sodium Succinate 40 mg/Syringe 0.64 ml @ 1.5 mls/min Q8H IV 03/29/17 08:00 03/30/17 17:09 DC 03/30/17 08:43 1.5 MLS/MIN Insulin Aspart (novoLOG ASPART) SLIDING SCALE G... ACHS SC 03/29/17 04:00 03/30/17 21:37 DC 03/30/17 20:23 5 UNITS Insulin Glargine (Lantus Vial) 65 units BID SC 03/29/17 09:00 03/29/17 18:14 DC 03/29/17 08:39 65 UNITS Insulin Human Regular 5 units/ Syringe 5 ml @ 30 mls/min TODAY@0115 IV 03/29/17 01:15 03/29/17 01:16 DC 03/29/17 01:39 30 MLS/MIN Insulin Aspart (novoLOG ASPART) SLIDING SCALE G... ONE ONCE SC 03/29/17 01:15 03/29/17 01:16 DC 03/29/17 02:42 17 UNITS Insulin Glargine (Lantus Vial) 65 units ONE ONCE SC 03/29/17 01:15 03/29/17 01:16 DC 03/29/17 02:43 65 UNITS Nicotine (Nicoderm Cq 21MG Patch) 1 patch QAM TD 03/29/17 09:00 04/28/17 08:59 04/02/17 08:38 1 PATCH Miscellaneous (Remove Nicoderm Patch) 1 ea HS N/A 03/29/17 21:00 04/28/17 20:59 04/03/17 21:00 1 EA Perflutren Lipid Microsphere (Definity) 2 ml ONE ONCE IV 03/29/17 15:04 03/29/17 15:05 DC 03/29/17 15:05 2 ML Insulin Glargine (Lantus Vial) 80 units BID SC 03/29/17 21:00 03/30/17 10:20 DC 03/29/17 21:00 80 UNITS Insulin Glargine (Lantus Vial) 15 units NOW ONCE SC 03/29/17 18:15 03/29/17 18:16 DC 03/29/17 18:24 15 UNITS Insulin Aspart (novoLOG ASPART) SLIDING SCALE G... DAILY@0000,0400 SC 03/30/17 00:00 03/30/17 04:01 DC 03/30/17 00:13 20 UNITS Lorazepam 0.5 mg/ Syringe 0.5 ml @ 0.5 mls/min TODAY@2330 ONCE IV 03/29/17 23:30 03/29/17 23:31 DC 03/29/17 23:44 0.5 MLS/MIN Budesonide/ Formoterol Fumarate (Symbicort 160/ 4.5 Inh) 2 puffs BID INH 03/30/17 09:00 04/29/17 08:59 04/04/17 08:15 2 PUFFS Tiotropium [place] (Spiriva Handihaler Inhaler) 2 puff QAM INH 03/30/17 09:00 04/29/17 08:59 04/04/17 08:14 2 PUFF Morphine Sulfate (MoRPHine SULFATE INJ) 2 mg Q3H PRN IV 03/30/17 15:15 04/13/17 15:14 04/02/17 21:17 2 MG Oxycodone HCl (Roxicodone Immediate Rel Tab) 5 mg Q4H PRN PO 03/30/17 15:15 04/13/17 15:14 04/01/17 01:55 5 MG Methylprednisolone Sodium Succinate 40 mg/Syringe 0.64 ml @ 1.5 mls/min Q4 IV 03/30/17 20:00 03/31/17 08:15 DC 03/31/17 04:25 1.5 MLS/MIN Fentanyl Citrate (Fentanyl Inj) 100 mcg STK-MED ONCE .ROUTE 03/30/17 17:42 03/30/17 17:43 DC 03/30/17 18:01 50 MCG Ipratropium [place] (Atrovent Hfa Inhaler) 4 puffs QIDR INH 03/30/17 20:00 03/30/17 23:13 DC 03/30/17 19:49 4 PUFFS Albuterol (Ventolin Hfa Inhaler) 4 puffs QIDR INH 03/30/17 20:00 03/30/17 23:13 DC 03/30/17 19:49 4 PUFFS Fentanyl Citrate (Fentanyl Inj) 25 mcg Q2H PRN IV 03/30/17 20:15 03/31/17 08:16 DC 03/30/17 20:45 25 MCG Insulin Aspart (novoLOG ASPART) SLIDING SCALE G... ACHS SC 03/31/17 06:45 04/30/17 00:00 04/04/17 08:10 16 UNITS Insulin Aspart (novoLOG ASPART) SLIDING SCALE G... TODAY@0400 ONCE SC 03/31/17 04:00 03/31/17 04:01 DC 03/31/17 04:24 6 UNITS Insulin Aspart (novoLOG ASPART) SLIDING SCALE G... NOW STAT SC 03/31/17 00:39 03/31/17 00:40 DC 03/31/17 00:51 8 UNITS Insulin Glargine (Lantus Vial) 60 units BID SC 03/31/17 09:00 03/31/17 15:22 DC 03/31/17 08:31 60 UNITS Methylprednisolone Sodium Succinate 40 mg/Syringe 0.64 ml @ 1.5 mls/min Q12H IV 03/31/17 09:00 03/31/17 21:01 DC 03/31/17 20:36 1.5 MLS/MIN Insulin Glargine (Lantus Vial) see protocol BID SC 03/31/17 21:00 04/30/17 20:59 04/04/17 08:11 40 UNITS Insulin Aspart (novoLOG ASPART) SLIDING SCALE G... TODAY@0000,0400 SC 04/01/17 00:00 04/01/17 12:51 DC 04/01/17 00:21 21 UNITS Sodium Chloride 500 ml @ 125 mls/hr Q4H ONCE IV 03/31/17 16:45 03/31/17 20:44 DC 03/31/17 17:00 125 MLS/HR Sodium Chloride 1,000 ml @ 125 mls/hr Q8H ONCE IV 04/01/17 09:00 04/01/17 16:59 DC 04/01/17 09:07 125 MLS/HR Prednisone (PredniSONE TAB) 50 mg 1234 ONCE PO 04/01/17 12:34 04/01/17 12:41 DC 04/01/17 12:54 50 MG Methylprednisolone Sodium Succinate 40 mg/Syringe 0.64 ml @ 1.5 mls/min BID IV 04/02/17 09:00 05/02/17 08:59 04/04/17 08:15 1.5 MLS/MIN Heparin Sodium (Porcine) (Heparin Sq 5000 Unit/0.5ml) 5,000 unit Q12 SQ 04/01/17 21:00 04/02/17 19:40 DC 04/02/17 08:38 5,000 UNIT Heparin Sodium (Porcine) (Heparin Sq 5000 Unit/0.5ml) 5,000 unit ONE ONCE SQ 04/02/17 20:00 04/02/17 20:01 DC 04/02/17 20:12 5,000 UNIT Ondansetron HCl 16 mg/ Dexamethasone Sodium Phosphate 12 mg/Sodium Chloride 61 ml @ 180 mls/hr TODAY@1230 IV 04/03/17 12:30 04/03/17 18:00 DC 04/03/17 13:53 180 MLS/HR Carboplatin 279 mg/Sodium Chloride 277.9 ml @ 555.8 mls/ hr TODAY@1300 IV 04/03/17 13:00 04/03/17 18:00 DC 04/03/17 14:45 555.8 MLS/HR Irinotecan HCl 30 mg/Irinotecan HCl 100 mg/Dextrose 506.5 ml @ 337.667 mls/hr TODAY@1330 IV 04/03/17 13:30 04/03/17 18:00 DC 04/03/17 15:37 337.667 MLS/HR Lidocaine HCl (Xylocaine 1% Inj (Local)) 40 ml STK-MED ONCE .ROUTE 04/03/17 06:56 04/03/17 06:57 DC 04/03/17 08:15 40 ML Heparin Sodium (Porcine) (Heparin 100 Unit/ml 5ml Flush) 25 ml STK-MED ONCE .ROUTE 04/03/17 06:56 04/03/17 06:57 DC 04/03/17 06:56 20 ML Heparin Sodium (Porcine) (Heparin Sq 5000 Unit/0.5ml) 5,000 unit Q12 SQ 04/03/17 21:00 05/03/17 20:59 04/04/17 08:17 5,000 UNIT Furosemide 40 mg/ Syringe 4 ml @ 4 mls/min ONE ONCE IV 04/03/17 20:00 04/03/17 20:01 DC 04/03/17 22:20 4 MLS/MIN Aspirin (Ecotrin Tab) 81 mg QAM PO 04/04/17 09:00 05/04/17 08:59 04/04/17 08:15 81 MG Subjective Mr. Jordan did well with chemo yesterday. However, later in the day he became increasingly short of breath and hypercarbic. He was put on BiPAP and transferred to telemetry. He was receiving a nebulizer when I saw him. He continues to have increased work of breathing and looks uncomfortable, though not considerably more so than baseline. Review of Systems: Constitutional: + weakness, + fatigue Respiratory: + wheezing, + shortness of breath Cardiovascular: No chest pain Abdomen: No pain, No nausea, No diarrhea Musculoskeletal: No joint pain, No muscle pain Heme: No abnormal bleeding/bruising, No night sweats Skin: No rash Vital Signs Vital Signs Past 12 Hours Date Time Temp Pulse Resp B/P (MAP) Pulse Ox O2 Delivery O2 Flow Rate FiO2 04/04/17 12:00 36.5 101 20 153/70 (97) 93 Nasal Cannula 4.0 04/04/17 11:23 101 20 96 Nasal Cannula 5.0 04/04/17 08:00 Nasal Cannula 4.0 04/04/17 07:47 36.4 94 20 156/70 (98) 92 BiPAP 04/04/17 07:37 100 22 94 Nasal Cannula 5.0 04/04/17 04:23 36.6 99 20 178/73 (108) 95 BiPAP 04/04/17 04:00 BiPAP 45 04/04/17 01:48 92 92 30 Physical Exam Constitutional: General Apperance: obese Level of Distress: mild distress Psychiatric: Mental Status: active & alert Orientation: oriented except where noted ENMT: pharynx normal Lungs: Auscuitation: decreased breath sounds (in all [place]), expiratory wheezing ( in all [place] anteriorly) Cardiovascular: Heart Auscultation: RRR Abdomen: Inspection & Palpation: soft, no tenderness, guarding & rebound Extremities: pertinent finding (chronic venous stasis changes bilaterally) Laboratory Last 24 Hours Test 04/03/17 12:45 04/03/17 16:24 04/03/17 18:23 04/03/17 19:50 Bedside Glucose 91 mg/dl 158 mg/dl 172 mg/dl Arterial Blood pH 7.30 Arterial Blood Partial Pressure CO2 60 mmHg Arterial Blood Partial Pressure O2 95 mm/Hg Arterial Blood HCO3 29 mmol/L Arterial Blood Oxygen Saturation 96.6 % Arterial Blood Base Excess 1.0 mEq/L Arterial Blood Gas Delivery 45% Alexei Test POS Test 04/03/17 20:57 04/04/17 04:04 04/04/17 06:51 04/04/17 07:02 Bedside Glucose 177 mg/dl 140 mg/dl 116 mg/dl White Blood Count 7.55 K/uL Red Blood Count 3.79 M/uL Hemoglobin 11.9 g/dL Hematocrit 35.9 % Mean Corpuscular Volume 94.7 fL Mean Corpuscular Hemoglobin 31.4 pg Mean Corpuscular Hemoglobin Concent 33.1 g/dl RDW Standard Deviation 46.7 fL RDW Coefficient of Variation 13.5 % Platelet Count 140 K/uL Mean Platelet Volume 9.4 fL Sodium Level 133 mmol/L Potassium Level 5.1 mmol/L Chloride Level 96 mmol/L Carbon Dioxide Level 34 mmol/L Anion Gap 3.0 mmol/L Blood Urea Nitrogen 89 mg/dl Creatinine 1.84 mg/dl Est Creatinine Clear Calc Drug Dose 47.2 ml/min Estimated GFR () 40.6 Estimated GFR (Non- 35.1 BUN/Creatinine Ratio 48.2 Random Glucose 111 mg/dl Calcium Level 8.2 mg/dl Assessment & Plan Mr. Jordan did well with chemo, with no acute toxicities. However, his respiratory status remains a challenge. I am optimistic we will see some improvement as his tumor shrinks, but his dyspnea is multifactorial and likely has prominent components of obesity hypoventilation and COPD. These are unlikely to improve with treatment of his cancer. His renal function is improved from before, but his creatinine is up a bit. If it continues to rise, I would check tumor lysis labs (phos, mg, uric acid), along with a DIC panel. His tumor burden is not high, but small cell lung cancer is one of the few solid tumors where TLS is often encountered.
--- NOTE | 2017-04-04 19:26 | Family Medicine Progress Note ---
Progress Note Date of Service Apr 04, 2017. Subjective Pt evaluation today including: conversation w/ patient, physical exam Pain: Denies pain PO Intake: tolerating well, although somnolent and has slept through 2 meals Voiding: no voiding problems Patient was more awake and alert this morning, stating he feels better. He has concerns about missig radiation, and is wondering how he's going to continue with the intensive schedule Respiratory: + wheezing, + shortness of breath, + dyspnea on exertion, + dyspnea at rest All Other Systems: Reviewed and Negative Medications Current Inpatient Medications Medications (Trade) Dose Ordered Sig/Michel Route Start Time Stop Time Status Last Admin Dose Admin Acetaminophen (Tylenol Tab) 650 mg Q4H PRN PO 03/28/17 23:45 04/27/17 23:44 Al Hydrox/Mg Hydrox/Simethicone (Maalox Max Susp) 15 ml Q4H PRN PO 03/28/17 23:45 04/27/17 23:44 Magnesium Hydroxide (Milk Of Magnesia Susp) 30 ml Q6H PRN PO 03/28/17 23:45 04/27/17 23:44 Polyethylene (Miralax Powder Packet) 17 gm DAILY PRN PO 03/28/17 23:45 04/27/17 23:44 Ondansetron HCl (Zofran Inj) 4 mg Q6H PRN IV 03/28/17 23:45 04/27/17 23:44 Albuterol/ Ipratropium (Duoneb) 3 ml QIDR INH 03/29/17 08:00 04/28/17 07:59 04/04/17 19:55 3 ML Atorvastatin Calcium (Lipitor Tab) 40 mg DAILY PO 03/29/17 09:00 04/28/17 08:59 04/04/17 08:15 40 MG HCTZ/Lisinopril (Prinzide 20-25MG Tab) 1 tab DAILY PO 03/29/17 09:00 04/28/17 08:59 04/04/17 08:16 1 TAB Glucose (Glucose 40% Gel) 15-30 GRAMS 15 GRAMS... UD PRN PO 03/29/17 00:15 04/28/17 00:14 Glucose (Glucose Chew Tab) 4-8 Tablets 4 Tabl... UD PRN PO 03/29/17 00:15 04/28/17 00:14 Dextrose (Dextrose 50% 50ML Syringe) 25-50ML OF 50% DW IV FOR... UD PRN IV 03/29/17 00:15 04/28/17 00:14 Glucagon (Glucagon Inj) 1 mg UD PRN SQ 03/29/17 00:15 04/28/17 00:14 Nitroglycerin (Nitrostat Tab) 0.4 mg PRN PRN SL 03/29/17 00:15 04/28/17 00:14 Miscellaneous (Iv Fluids Completed) 1 ea PRN PRN N/A 03/29/17 00:30 03/29/18 00:29 Nicotine (Nicoderm Cq 21MG Patch) 1 patch QAM TD 03/29/17 09:00 04/28/17 08:59 04/02/17 08:38 1 PATCH Miscellaneous (Remove Nicoderm Patch) 1 ea HS N/A 03/29/17 21:00 04/28/17 20:59 04/03/17 21:00 1 EA Miscellaneous Information (Consult Glycemic Management Pharmacy) 1 ea UD N/A 03/29/17 17:59 04/28/17 17:58 Budesonide/ Formoterol Fumarate (Symbicort 160/ 4.5 Inh) 2 puffs BID INH 03/30/17 09:00 04/29/17 08:59 04/04/17 20:36 2 PUFFS Tiotropium [place] (Spiriva Handihaler Inhaler) 2 puff QAM INH 03/30/17 09:00 04/29/17 08:59 04/04/17 08:14 2 PUFF Morphine Sulfate (MoRPHine SULFATE INJ) 2 mg Q3H PRN IV 03/30/17 15:15 04/13/17 15:14 04/02/17 21:17 2 MG Oxycodone HCl (Roxicodone Immediate Rel Tab) 5 mg Q4H PRN PO 03/30/17 15:15 04/13/17 15:14 04/01/17 01:55 5 MG Insulin Aspart (novoLOG ASPART) SLIDING SCALE G... ACHS SC 03/31/17 06:45 04/30/17 00:00 04/04/17 17:06 4 UNITS Insulin Glargine (Lantus Vial) see protocol BID SC 03/31/17 21:00 04/30/17 20:59 04/04/17 20:37 60 UNITS Methylprednisolone Sodium Succinate 40 mg/Syringe 0.64 ml @ 1.5 mls/min BID IV 04/02/17 09:00 05/02/17 08:59 04/04/17 20:36 1.5 MLS/MIN Heparin Sodium (Porcine) (Heparin Sq 5000 Unit/0.5ml) 5,000 unit Q12 SQ 04/03/17 21:00 05/03/17 20:59 04/04/17 20:38 5,000 UNIT Aspirin (Ecotrin Tab) 81 mg QAM PO 04/04/17 09:00 05/04/17 08:59 04/04/17 08:15 81 MG Objective Vital Signs Date Time Temp Pulse Resp B/P (MAP) Pulse Ox O2 Delivery O2 Flow Rate FiO2 04/04/17 20:00 BiPAP 30 04/04/17 20:00 36.5 100 22 137/61 (86) 93 Nasal Cannula 04/04/17 19:56 88 94 50 04/04/17 19:56 88 24 94 BiPAP/CPAP 50 04/04/17 16:00 BiPAP 30 04/04/17 15:23 36.6 98 20 126/53 (77) 98 BiPAP 04/04/17 15:03 102 99 50 04/04/17 15:02 102 24 99 BiPAP/CPAP 50 04/04/17 12:00 36.5 101 20 153/70 (97) 93 Nasal Cannula 4.0 04/04/17 12:00 BiPAP 45 04/04/17 11:23 101 20 96 Nasal Cannula 5.0 04/04/17 08:00 Nasal Cannula 4.0 04/04/17 07:47 36.4 94 20 156/70 (98) 92 BiPAP 04/04/17 07:37 100 22 94 Nasal Cannula 5.0 04/04/17 04:23 36.6 99 20 178/73 (108) 95 BiPAP 04/04/17 04:00 BiPAP 45 04/04/17 01:48 92 92 30 04/04/17 00:00 BiPAP 45 04/03/17 23:55 36.5 95 24 147/70 (95) BiPAP 30 04/03/17 23:52 94 98 45 Physical Exam General Appearance: WD/WN, + mild distress Eyes: normal inspection, PERRL, EOMI, sclerae normal ENT: hearing grossly normal Neck: supple, no carotid bruits, trachea midline Respiratory/Chest: chest non-tender, + respiratory distress, + decreased breath sounds, + accessory muscle use, + wheezing Cardiovascular: regular rate, rhythm, + systolic murmur Abdomen: normal bowel sounds, non tender, + distended Extremities: normal range of motion, non-tender, normal inspection, + pedal edema Neurologic/Psychiatric: no motor/sensory deficits, normal mood/affect, oriented x 3 Laboratory Results Last Resulted 04/04/17 06:51 Last Resulted 04/04/17 06:51 Assessment and Plan 76 y/o M PMH hypertension, CKD, AAA, CAD, uncontrolled COPD, tobacco abuse, T2DM. Here for dyspnea found to have lung mass on CT with subsequent path result of small cell lung ca. Of note, pt has expressed a strong aversion to being in the hospital, but has been mostly amenable to all interventions and diagnostics thus far. Radiation started but patient had difficulty completing on day 2. Started chemo on 04/03 after port placement. Patient became somnolent with increase WOB on 04/03, on 04/04, he was more alert in the morning and slowly regressed, needing bipap and desatting on bipap. small cell lung cancer - CT shows: Right suprahilar mass with mediastinal extension 7.3 x 5.2 cm. This mass extends across the midline and likely abuts the anterior aspect of the adrienne. This mass results in significant narrowing of several right upper lobe bronchi. There are multiple enlarged mediastinal lymph nodes. A 4 mm right lower lobe nodule is similar to CT of February 13, 2011 and is likely benign. - CT Surg consulted - Dr. Davenport took for mediastinoscopy - path shows small cell - given oncology input and airway compromise - for inpatient chemo to start today, then weekly with Dr. Ambriz - Appreciate heme/onc recommendations - rad/onc consult and radiation started yesterday; moved to 4th floor - Consulted gen/surg for port placement tomorrow prior to chemo today; aware of prior difficulty with mediastinoscopy. - Heparin restarted tonight - 04/03:Patient seemed to have difficulty ventilating late this afternoon and increasing somnolence/confusion. Restarted bipap; CXR and abg obtained ABG reassuring in sense that close to his "baseline". CXR showed some increasing vasculature markings; given 40 mg lasix Continue Bipap overnight. Acute on chronic SOB/COPD - strongly suspect chronic respiratory failure related to COPD - likely to need O2 all the time - will 2 step prior to discharge CKD 3B - Improved slightly today, appearing prerenal - ACEi and HCTZ have been stopped - IVF and follow - suspect cor pulmonale / pulmonary HTN is what led to him appearing swollen despite also appearing intravascular volume depleted Hyperglycemia, T2DM - continue to follow on insulins with steroids - improved control in last few days Hypertension -holding ZEKE and thiazide, follow BP off those Hyperlipidemia - continue atorvastatin 40mg daily CAD - ASA 81mg tab daily Tobacco abuse - nicotine 21 mg patch TD QAM. DVT ppx heparin SQ Code: full Dispo tele Resident Physician Supervision Note: I interviewed and examined the patient. Discussed with Dr. Roberts and agree with findings and plan as documented in the note. Any exceptions or clarifications are listed here: None Documented By: Mason Angelo feeling ok overall bipap not able to be set up on weekend vitlas noted nad breathing unlabored no pallor or icterus OHS/ANGEL/COPD -requiring O2 24/7 and bipap at any time of sleep to be safe - cannot safely discharge to home without noninvasive positive pressure ventilation. COPD appears severe enough that interuption in this care will likely lead to imminent decline or even possibly . SCC lungs - ongoing chemo and radiation stable for home once bipap and O2 set up Resident Tracking Resident Involvement: Resident Care Provided Care Provided: Adult Hospital Medicine
[2017-04-05] VITALS (13 sets, daily range): BP systolic 122–182; BP diastolic 54–75; PULSE 90–106; TEMP 36.3–36.6; O2SAT 92–98
[2017-04-05 06:19] LABS: HEMOGLOBIN 12.2 g/dL (14.0-18.0); MEAN CELL VOLUME 93.5 fL (80-100); MEAN CORPUSCULAR HEMOGLOBIN 31.7 pg (25-34); MEAN CORPUSCULAR HGB CONC 33.9 g/dl (32-36); MEAN PLATELET VOLUME 9.5 fL (7.4-10.4); PLATELET COUNT 150 K/uL (130-400); RED CELL DISTRIBUTION WIDTH CV 13.6 % (11.5-14.5); RED CELL DISTRIBUTION WIDTH SD 46.5 fL (36.4-46.3)
[2017-04-05 06:35] LABS: INR 1.1 (0.9-1.1); PTT PATIENT 23.9 SECONDS (21.0-31.0)
[2017-04-05 06:54] LABS: CALCIUM 8.2 mg/dl (8.5-10.1); CREATININE 1.63 mg/dl (0.60-1.40); POTASSIUM 4.9 mmol/L (3.5-5.1)
[2017-04-05] MEDS: ALBUT/IPRATROP 3MG/0.5MG NEB 3 ML VIAL INH SCH ×4 (07:58→19:14)
[2017-04-05] MEDS: NICOTINE 21 MG/24 HR TDSY TD SCH (09:00)
[2017-04-05] MEDS: INSULIN ASPART 100 UNITS/ML 3 ML PEN SC SCH ×4 (09:00→20:49)
[2017-04-05] MEDS: INSULIN GLARGINE SC SCH ×2 (09:01→20:42)
[2017-04-05] MEDS: HEPARIN SOD 5000 UNIT/0.5 ML CARP SQ SCH ×2 (09:02→20:43)
[2017-04-05] MEDS: METHYLPREDNISOLONE IV 40 MG in SYRINGE 0 ML IV SCH ×2 (09:06→20:32)
[2017-04-05] MEDS: BUDESONIDE/FORMOTEROL FUMARATE 160/4.5 60 PUFFS/INHALER INH SCH ×2 (09:06→20:33)
[2017-04-05] MEDS: ASPIRIN 81 MG ECTAB PO SCH (09:07)
[2017-04-05] MEDS: LISINOPRIL/HCTZ 20/25MG TAB PO SCH (09:08)
[2017-04-05] MEDS: ATORVASTATIN 40 MG TAB PO SCH (09:08)
[2017-04-05] MEDS: TIOTROPIUM BROMIDE 5 PUFF/90 MCG INH INH SCH (09:53)
--- NOTE | 2017-04-05 10:41 | Hematology/Oncology Prog Note ---
Hematology/Onc Progress Note Date of Service Apr 05, 2017. Diagnoses Small cell lung cancer Medications Medications Administered Medications (Trade) Dose Ordered Sig/Michel Route Start Time Stop Time Status Last Admin Dose Admin Albuterol/ Ipratropium (Duoneb) 3 ml NOW STAT INH 03/28/17 18:17 03/28/17 18:18 DC 03/28/17 18:32 3 ML Albuterol/ Ipratropium (Duoneb) 3 ml QIDR INH 03/29/17 08:00 04/28/17 07:59 04/05/17 07:58 3 ML Aspirin (Ecotrin Tab) 81 mg DAILY PO 03/29/17 09:00 04/02/17 19:40 DC 03/29/17 08:34 81 MG Atorvastatin Calcium (Lipitor Tab) 40 mg DAILY PO 03/29/17 09:00 04/28/17 08:59 04/05/17 09:08 40 MG HCTZ/Lisinopril (Prinzide 20-25MG Tab) 1 tab DAILY PO 03/29/17 09:00 04/28/17 08:59 04/05/17 09:08 1 TAB Methylprednisolone Sodium Succinate (Solu-Medrol IV) 125 mg NOW STAT IV 03/28/17 23:52 03/28/17 23:58 DC 03/29/17 01:21 125 MG Methylprednisolone Sodium Succinate 40 mg/Syringe 0.64 ml @ 1.5 mls/min Q8H IV 03/29/17 08:00 03/30/17 17:09 DC 03/30/17 08:43 1.5 MLS/MIN Insulin Aspart (novoLOG ASPART) SLIDING SCALE G... ACHS SC 03/29/17 04:00 03/30/17 21:37 DC 03/30/17 20:23 5 UNITS Dextrose (Dextrose 50% 50ML Syringe) 25-50ML OF 50% DW IV FOR... UD PRN IV 03/29/17 00:15 04/28/17 00:14 04/05/17 06:38 50 ML Insulin Glargine (Lantus Vial) 65 units BID SC 03/29/17 09:00 03/29/17 18:14 DC 03/29/17 08:39 65 UNITS Insulin Human Regular 5 units/ Syringe 5 ml @ 30 mls/min TODAY@0115 IV 03/29/17 01:15 03/29/17 01:16 DC 03/29/17 01:39 30 MLS/MIN Insulin Aspart (novoLOG ASPART) SLIDING SCALE G... ONE ONCE SC 03/29/17 01:15 03/29/17 01:16 DC 03/29/17 02:42 17 UNITS Insulin Glargine (Lantus Vial) 65 units ONE ONCE SC 03/29/17 01:15 03/29/17 01:16 DC 03/29/17 02:43 65 UNITS Nicotine (Nicoderm Cq 21MG Patch) 1 patch QAM TD 03/29/17 09:00 04/28/17 08:59 04/02/17 08:38 1 PATCH Miscellaneous (Remove Nicoderm Patch) 1 ea HS N/A 03/29/17 21:00 04/28/17 20:59 04/03/17 21:00 1 EA Perflutren Lipid Microsphere (Definity) 2 ml ONE ONCE IV 03/29/17 15:04 03/29/17 15:05 DC 03/29/17 15:05 2 ML Insulin Glargine (Lantus Vial) 80 units BID SC 03/29/17 21:00 03/30/17 10:20 DC 03/29/17 21:00 80 UNITS Insulin Glargine (Lantus Vial) 15 units NOW ONCE SC 03/29/17 18:15 03/29/17 18:16 DC 03/29/17 18:24 15 UNITS Insulin Aspart (novoLOG ASPART) SLIDING SCALE G... DAILY@0000,0400 SC 03/30/17 00:00 03/30/17 04:01 DC 03/30/17 00:13 20 UNITS Lorazepam 0.5 mg/ Syringe 0.5 ml @ 0.5 mls/min TODAY@2330 ONCE IV 03/29/17 23:30 03/29/17 23:31 DC 03/29/17 23:44 0.5 MLS/MIN Budesonide/ Formoterol Fumarate (Symbicort 160/ 4.5 Inh) 2 puffs BID INH 03/30/17 09:00 04/29/17 08:59 04/05/17 09:06 2 PUFFS Tiotropium [place] (Spiriva Handihaler Inhaler) 2 puff QAM INH 03/30/17 09:00 04/29/17 08:59 04/05/17 09:53 2 PUFF Morphine Sulfate (MoRPHine SULFATE INJ) 2 mg Q3H PRN IV 03/30/17 15:15 04/13/17 15:14 04/02/17 21:17 2 MG Oxycodone HCl (Roxicodone Immediate Rel Tab) 5 mg Q4H PRN PO 03/30/17 15:15 04/13/17 15:14 04/01/17 01:55 5 MG Methylprednisolone Sodium Succinate 40 mg/Syringe 0.64 ml @ 1.5 mls/min Q4 IV 03/30/17 20:00 03/31/17 08:15 DC 03/31/17 04:25 1.5 MLS/MIN Fentanyl Citrate (Fentanyl Inj) 100 mcg STK-MED ONCE .ROUTE 03/30/17 17:42 03/30/17 17:43 DC 03/30/17 18:01 50 MCG Ipratropium [place] (Atrovent Hfa Inhaler) 4 puffs QIDR INH 03/30/17 20:00 03/30/17 23:13 DC 03/30/17 19:49 4 PUFFS Albuterol (Ventolin Hfa Inhaler) 4 puffs QIDR INH 03/30/17 20:00 03/30/17 23:13 DC 03/30/17 19:49 4 PUFFS Fentanyl Citrate (Fentanyl Inj) 25 mcg Q2H PRN IV 03/30/17 20:15 03/31/17 08:16 DC 03/30/17 20:45 25 MCG Insulin Aspart (novoLOG ASPART) SLIDING SCALE G... ACHS SC 03/31/17 06:45 04/30/17 00:00 04/05/17 09:00 19 UNITS Insulin Aspart (novoLOG ASPART) SLIDING SCALE G... TODAY@0400 ONCE FL 03/31/17 04:00 03/31/17 04:01 DC 03/31/17 04:24 6 UNITS Insulin Aspart (novoLOG ASPART) SLIDING SCALE G... NOW STAT FL 03/31/17 00:39 03/31/17 00:40 DC 03/31/17 00:51 8 UNITS Insulin Glargine (Lantus Vial) 60 units BID SC 03/31/17 09:00 03/31/17 15:22 DC 03/31/17 08:31 60 UNITS Methylprednisolone Sodium Succinate 40 mg/Syringe 0.64 ml @ 1.5 mls/min Q12H IV 03/31/17 09:00 03/31/17 21:01 DC 03/31/17 20:36 1.5 MLS/MIN Insulin Glargine (Lantus Vial) see protocol BID SC 03/31/17 21:00 04/30/17 20:59 04/05/17 09:01 40 UNITS Insulin Aspart (novoLOG ASPART) SLIDING SCALE G... TODAY@0000,0400 SC 04/01/17 00:00 04/01/17 12:51 DC 04/01/17 00:21 21 UNITS Sodium Chloride 500 ml @ 125 mls/hr Q4H ONCE IV 03/31/17 16:45 03/31/17 20:44 DC 03/31/17 17:00 125 MLS/HR Sodium Chloride 1,000 ml @ 125 mls/hr Q8H ONCE IV 04/01/17 09:00 04/01/17 16:59 DC 04/01/17 09:07 125 MLS/HR Prednisone (PredniSONE TAB) 50 mg 1234 ONCE PO 04/01/17 12:34 04/01/17 12:41 DC 04/01/17 12:54 50 MG Methylprednisolone Sodium Succinate 40 mg/Syringe 0.64 ml @ 1.5 mls/min BID IV 04/02/17 09:00 05/02/17 08:59 04/05/17 09:06 1.5 MLS/MIN Heparin Sodium (Porcine) (Heparin Sq 5000 Unit/0.5ml) 5,000 unit Q12 SQ 04/01/17 21:00 04/02/17 19:40 DC 04/02/17 08:38 5,000 UNIT Heparin Sodium (Porcine) (Heparin Sq 5000 Unit/0.5ml) 5,000 unit ONE ONCE SQ 04/02/17 20:00 04/02/17 20:01 DC 04/02/17 20:12 5,000 UNIT Ondansetron HCl 16 mg/ Dexamethasone Sodium Phosphate 12 mg/Sodium Chloride 61 ml @ 180 mls/hr TODAY@1230 IV 04/03/17 12:30 04/03/17 18:00 DC 04/03/17 13:53 180 MLS/HR Carboplatin 279 mg/Sodium Chloride 277.9 ml @ 555.8 mls/ hr TODAY@1300 IV 04/03/17 13:00 04/03/17 18:00 DC 04/03/17 14:45 555.8 MLS/HR Irinotecan HCl 30 mg/Irinotecan HCl 100 mg/Dextrose 506.5 ml @ 337.667 mls/hr TODAY@1330 IV 04/03/17 13:30 04/03/17 18:00 DC 04/03/17 15:37 337.667 MLS/HR Lidocaine HCl (Xylocaine 1% Inj (Local)) 40 ml STK-MED ONCE .ROUTE 04/03/17 06:56 04/03/17 06:57 DC 04/03/17 08:15 40 ML Heparin Sodium (Porcine) (Heparin 100 Unit/ml 5ml Flush) 25 ml STK-MED ONCE .ROUTE 04/03/17 06:56 04/03/17 06:57 DC 04/03/17 06:56 20 ML Heparin Sodium (Porcine) (Heparin Sq 5000 Unit/0.5ml) 5,000 unit Q12 SQ 04/03/17 21:00 05/03/17 20:59 04/05/17 09:02 5,000 UNIT Furosemide 40 mg/ Syringe 4 ml @ 4 mls/min ONE ONCE IV 04/03/17 20:00 04/03/17 20:01 DC 04/03/17 22:20 4 MLS/MIN Aspirin (Ecotrin Tab) 81 mg QAM PO 04/04/17 09:00 05/04/17 08:59 04/05/17 09:07 81 MG Subjective Mr. Jordan looks a little better today. He is still tachypneic, but appears less labored than yesterday and is not wheezing today. Review of Systems: Constitutional: + weakness, + fatigue Respiratory: + shortness of breath, No cough, No wheezing Cardiovascular: No chest pain Abdomen: No pain, No nausea Musculoskeletal: No joint pain, No muscle pain Neurologic: No paralysis, No weakness Heme: No abnormal bleeding/bruising Vital Signs Vital Signs Past 12 Hours Date Time Temp Pulse Resp B/P (MAP) Pulse Ox O2 Delivery O2 Flow Rate FiO2 04/05/17 07:58 97 22 94 Nasal Cannula 3.0 04/05/17 07:43 36.6 95 18 160/71 (100) 98 04/05/17 04:00 BiPAP 30 04/05/17 03:49 36.5 96 24 135/54 (81) 95 BiPAP 04/05/17 00:00 BiPAP 30 04/04/17 23:54 36.4 97 23 150/82 (104) 97 BiPAP Physical Exam Constitutional: General Apperance: obese Level of Distress: mild distress (looks better than previous) Psychiatric: Mental Status: active & alert Orientation: oriented except where noted ENMT: pharynx normal Lungs: Respiratory Effort: tachypneic Auscuitation: decreased breath sounds (in all [place]) Cardiovascular: Heart Auscultation: RRR Abdomen: Inspection & Palpation: soft, no tenderness, guarding & rebound Extremities: no edema, pertinent finding (chronic venous stasis changes bilaterally) Laboratory Last 24 Hours Test 04/04/17 12:03 04/04/17 16:02 04/04/17 20:10 04/05/17 05:32 Bedside Glucose 241 mg/dl 173 mg/dl 122 mg/dl Arterial Blood pH 7.39 Arterial Blood Partial Pressure CO2 53 mmHg Arterial Blood Partial Pressure O2 78 mm/Hg Arterial Blood HCO3 31 mmol/L Arterial Blood Oxygen Saturation 95.0 % Arterial Blood Base Excess 4.7 mEq/L Arterial Blood Gas Delivery 30% O2 Alexei Test POS Test 04/05/17 05:41 04/05/17 07:07 White Blood Count 11.60 K/uL Red Blood Count 3.85 M/uL Hemoglobin 12.2 g/dL Hematocrit 36.0 % Mean Corpuscular Volume 93.5 fL Mean Corpuscular Hemoglobin 31.7 pg Mean Corpuscular Hemoglobin Concent 33.9 g/dl RDW Standard Deviation 46.5 fL RDW Coefficient of Variation 13.6 % Platelet Count 150 K/uL Mean Platelet Volume 9.5 fL Prothrombin Time 11.1 SECONDS Prothromb Time International Ratio 1.1 Activated Partial Thromboplast Time 23.9 SECONDS Partial Thromboplastin Ratio 0.9 Sodium Level 133 mmol/L Potassium Level 4.9 mmol/L Chloride Level 98 mmol/L Carbon Dioxide Level 31 mmol/L Anion Gap 4.0 mmol/L Blood Urea Nitrogen 93 mg/dl Creatinine 1.63 mg/dl Est Creatinine Clear Calc Drug Dose 53.3 ml/min Estimated GFR () 47.1 Estimated GFR (Non- 40.6 BUN/Creatinine Ratio 56.7 Random Glucose 40 mg/dl Calcium Level 8.2 mg/dl Bedside Glucose 137 mg/dl Assessment & Plan Mr. Jordan continues to have no major issues with chemo and looks at least a little more comfortable breathing. He is awaiting home BiPAP setup and will likely be here through the night. I will arrange for him to return to my office on Thursday for his C1D8 dose of irinotecan. In the meantime, he will continue with daily RT in radiation oncology.
--- NOTE | 2017-04-05 14:27 | Pharmacy Progress Note ---
Pharmacy Glycemic Sign Off Nt Date of Service Apr 05, 2017. Assessment & Plan ASSESSMENT: * Pharmacy was consulted by Dr Sparrow on 03/29/17 for glycemic control and to write orders per [facility] inpatient glycemic control protocol. * Major changes made by pharmacy to antidiabetic regimen include: * Initiation of Lantus twice daily. This has ranged from a total daily dose of 60-120 based upon steroid doses. Currently, with Solu-Medrol 40 mg IV BID, the patient should require approximately 60 units daily. * Initiation of a strict correction factor and carbohydrate ratio which has not fluctuated greatly. Typically patient requires a correction factor between 7 and 10 and carbohydrate ratio around 3. * Patient has been receiving/requiring ~100 units of insulin per day for adequate glycemic control * BSGs ranging 40- 241 mg/dl (large fluctuations over the past few days as the patient received dexamethasone 12 mg IV x 1 on 04/03/17 thereby increasing blood sugars substantially... most likely overestimated the effects of dexamethasone on the patient thereby causing a low blood sugar this morning). * Per conversation with Dr Frazier, pharmacy glycemic service will sign off to allow for residence control of patient as it is an excellent learning experience. * Please see recommendations for outpatient antidiabetic regimen below. PLAN FOR INPATIENT GLYCEMIC CONTROL: No changes needed to current regimen. * Continue basal insulin with Lantus 20-60 units SQ BID (20 units if blood sugar less than 120 mg/dL, 40 units if blood sugar 120-180 mg/dL, and 80 units for blood sugar greater than 180 mg/dL). * Continue NovoLog per scale ACHS/Q6hrs while NPO LONG PATIENT IS ON SOLU- MEDROL 40 MG IV (loosen both parameters once steroids altered) * Goal range = 120- 150 mg/dl * CF = 15 mg/dl/unit * CR = 1 unit for ever 5 g CHO consumed * A1c added to discharge instructions to be communicated to PCP. * Pharmacy is signing off of glycemic consult and will no longer be making adjustments to inpatient regimen. Please feel free to re-consult if needed. Thank you. DISCHARGE RECOMMENDATIONS: * A1c 8.6 % on 03/30/17 - suggests slightly sub-optimal glycemic control as an outpatient. * Patient is not necessarily compliant with his insulin, and is quite set in his ways. * CDE has seen patient, but he was not really open to discussing changes to his diabetes management. * refer to their note * Recommend f/u with PCP and an attempt at stabilizing his regimen and optimizing A1c.
--- NOTE | 2017-04-05 18:39 | Family Medicine Progress Note ---
Progress Note Date of Service Apr 05, 2017. Subjective Pt evaluation today including: conversation w/ patient, conversation w/ family , physical exam, chart review, lab review, review of inpatient medication list Pain: denies pain PO Intake: tolerating well Voiding: no voiding problems Patient is much improved from yesterday, is eager to get home. Would also like to walk, feels he is restless in bed Constitutional: No fever, No chills, No sweats, No weight loss, No weakness , No fatigue, No problem reported Respiratory: + wheezing, + shortness of breath, + dyspnea on exertion, + dyspnea at rest Cardiovascular: + orthopnea, + edema All Other Systems: Reviewed and Negative Medications Current Inpatient Medications Medications (Trade) Dose Ordered Sig/Michel Route Start Time Stop Time Status Last Admin Dose Admin Acetaminophen (Tylenol Tab) 650 mg Q4H PRN PO 03/28/17 23:45 04/27/17 23:44 Al Hydrox/Mg Hydrox/Simethicone (Maalox Max Susp) 15 ml Q4H PRN PO 03/28/17 23:45 04/27/17 23:44 Magnesium Hydroxide (Milk Of Magnesia Susp) 30 ml Q6H PRN PO 03/28/17 23:45 04/27/17 23:44 Polyethylene (Miralax Powder Packet) 17 gm DAILY PRN PO 03/28/17 23:45 04/27/17 23:44 Ondansetron HCl (Zofran Inj) 4 mg Q6H PRN IV 03/28/17 23:45 04/27/17 23:44 Albuterol/ Ipratropium (Duoneb) 3 ml QIDR INH 03/29/17 08:00 04/28/17 07:59 04/05/17 19:14 3 ML Atorvastatin Calcium (Lipitor Tab) 40 mg DAILY PO 03/29/17 09:00 04/28/17 08:59 04/05/17 09:08 40 MG HCTZ/Lisinopril (Prinzide 20-25MG Tab) 1 tab DAILY PO 03/29/17 09:00 04/28/17 08:59 04/05/17 09:08 1 TAB Glucose (Glucose 40% Gel) 15-30 GRAMS 15 GRAMS... UD PRN PO 03/29/17 00:15 04/28/17 00:14 Glucose (Glucose Chew Tab) 4-8 Tablets 4 Tabl... UD PRN PO 03/29/17 00:15 04/28/17 00:14 Dextrose (Dextrose 50% 50ML Syringe) 25-50ML OF 50% DW IV FOR... UD PRN IV 03/29/17 00:15 04/28/17 00:14 04/05/17 06:38 50 ML Glucagon (Glucagon Inj) 1 mg UD PRN SQ 03/29/17 00:15 04/28/17 00:14 Nitroglycerin (Nitrostat Tab) 0.4 mg PRN PRN SL 03/29/17 00:15 04/28/17 00:14 Miscellaneous (Iv Fluids Completed) 1 ea PRN PRN N/A 03/29/17 00:30 03/29/18 00:29 Nicotine (Nicoderm Cq 21MG Patch) 1 patch QAM TD 03/29/17 09:00 04/28/17 08:59 04/02/17 08:38 1 PATCH Miscellaneous (Remove Nicoderm Patch) 1 ea HS N/A 03/29/17 21:00 04/28/17 20:59 04/03/17 21:00 1 EA Budesonide/ Formoterol Fumarate (Symbicort 160/ 4.5 Inh) 2 puffs BID INH 03/30/17 09:00 04/29/17 08:59 04/05/17 20:33 2 PUFFS Tiotropium [place] (Spiriva Handihaler Inhaler) 2 puff QAM INH 03/30/17 09:00 04/29/17 08:59 04/05/17 09:53 2 PUFF Morphine Sulfate (MoRPHine SULFATE INJ) 2 mg Q3H PRN IV 03/30/17 15:15 04/13/17 15:14 04/05/17 21:26 2 MG Oxycodone HCl (Roxicodone Immediate Rel Tab) 5 mg Q4H PRN PO 03/30/17 15:15 04/13/17 15:14 04/01/17 01:55 5 MG Insulin Aspart (novoLOG ASPART) SLIDING SCALE G... ACHS SC 03/31/17 06:45 04/30/17 00:00 04/05/17 12:07 10 UNITS Methylprednisolone Sodium Succinate 40 mg/Syringe 0.64 ml @ 1.5 mls/min BID IV 04/02/17 09:00 05/02/17 08:59 04/05/17 20:32 1.5 MLS/MIN Heparin Sodium (Porcine) (Heparin Sq 5000 Unit/0.5ml) 5,000 unit Q12 SQ 04/03/17 21:00 05/03/17 20:59 04/05/17 20:43 5,000 UNIT Aspirin (Ecotrin Tab) 81 mg QAM PO 04/04/17 09:00 05/04/17 08:59 04/05/17 09:07 81 MG Insulin Glargine (Lantus Vial) See protocol BID SC 04/05/17 20:00 04/30/17 20:59 04/05/17 20:42 25 UNITS Objective Vital Signs Date Time Temp Pulse Resp B/P (MAP) Pulse Ox O2 Delivery O2 Flow Rate FiO2 04/05/17 19:31 36.5 106 20 182/63 (102) 93 Nasal Cannula 3.0 04/05/17 19:14 93 20 94 Nasal Cannula 3.0 04/05/17 16:00 Nasal Cannula 3.0 04/05/17 15:55 36.4 90 18 139/66 (90) 95 3.0 04/05/17 15:23 90 20 94 Nasal Cannula 3.0 04/05/17 13:35 36.5 100 20 122/55 (77) 94 Nasal Cannula 3.0 04/05/17 13:18 36.3 102 20 92 3.0 04/05/17 12:00 Nasal Cannula 3.0 04/05/17 11:36 36.3 102 20 159/69 (99) 92 04/05/17 11:10 93 22 95 Nasal Cannula 3.0 04/05/17 08:00 Nasal Cannula 3.0 04/05/17 07:58 97 22 94 Nasal Cannula 3.0 04/05/17 07:43 36.6 95 18 160/71 (100) 98 04/05/17 04:00 BiPAP 30 04/05/17 03:49 36.5 96 24 135/54 (81) 95 BiPAP 04/05/17 00:00 BiPAP 30 04/04/17 23:54 36.4 97 23 150/82 (104) 97 BiPAP Physical Exam General Appearance: WD/WN, no apparent distress Eyes: normal inspection, PERRL, EOMI, sclerae normal ENT: TMs normal Neck: no JVD, no carotid bruits, trachea midline Respiratory/Chest: chest non-tender, + decreased breath sounds, + accessory muscle use Cardiovascular: regular rate, rhythm, + pertinent finding (distant heart sounds ; possible holosystolic murmur) Abdomen: normal bowel sounds, non tender, + distended Extremities: no calf tenderness, + pedal edema 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 Here for dyspnea found to have lung mass on CT with subsequent path result of small cell lung ca. Of note, pt has expressed a strong aversion to being in the hospital, but has been mostly amenable to all interventions and diagnostics thus far. Radiation started but patient had difficulty completing on day 2. Started chemo on 04/03 after port placement. Patient became somnolent with increase WOB on 04/03, on 04/04, he was more alert in the morning and slowly regressed, needing bipap and desatting on bipap. Doing better on 04/05, not requiring bipap during the day small cell lung cancer - CT shows: Right suprahilar mass with mediastinal extension, Dr. Davenport took for mediastinoscopy - path shows small cell lung cancer - given oncology input and airway compromise - for chemo weekly with Dr. Baldev Lau - rad/onc consult and radiation started, scheduled 5x/wk - 04/03:Patient seemed to have difficulty ventilating late in afternoon and increasing somnolence/confusion. Restarted bipap; CXR and abg obtained ABG reassuring in sense that close to his "baseline". CXR showed some increasing vasculature markings; given 40 mg lasix Continue Bipap overnight and on discharge; must be set up during the week Acute on chronic SOB/COPD - strongly suspect chronic respiratory failure related to COPD - likely to need O2 all the time - will need 2 step prior to discharge - Steroid taper - due to chronic resp failure consequent to COPD, pt now requires a non- invasive home ventilator. Bi-level therapy with and w/o a rate would be ineffective as patient requires a volume targeted mode. Ventilation is required to decrease the work of breathing and improve pulmonary status. Interruption of ventilator support would lead to decline of health status. CKD 3B - Improved slightly today, appearing prerenal - ACEi and HCTZ have been stopped - IVF and follow - suspect cor pulmonale / pulmonary HTN is what led to him appearing swollen despite also appearing intravascular volume depleted Hyperglycemia, T2DM - continue to follow on insulins with steroids - improved control in last few days Hypertension -holding ZEKE and thiazide, follow BP off those Hyperlipidemia - continue atorvastatin 40mg daily CAD - ASA 81mg tab daily Tobacco abuse - nicotine 21 mg patch TD QAM. DVT ppx heparin SQ Code: full Dispo tele Resident Physician Supervision Note: I interviewed and examined the patient. Discussed with Dr. Roberts and agree with findings and plan as documented in the note. Any exceptions or clarifications are listed here: None Documented By: Mason Angelo feeling ok overall bipap not able to be set up on weekend nicki noted nad breathing unlabored no pallor or icterus OHS/ANGEL/COPD -requiring O2 24/7 and bipap at any time of sleep to be safe - cannot safely discharge to home without noninvasive positive pressure ventilation. COPD appears severe enough that interuption in this care will likely lead to imminent decline or even possibly . SCC lungs - ongoing chemo and radiation stable for home once bipap and O2 set up Resident Tracking Resident Involvement: Resident Care Provided Care Provided: Adult Hospital Medicine
[2017-04-05] MEDS ORDERED: INSULIN GLARGINE SC SCH (20:00)
[2017-04-05] MEDS: MoRPHine SULFATE 2 MG/ML CARP IV PRN (21:26)
[2017-04-06] VITALS (12 sets, daily range): BP systolic 114–154; BP diastolic 62–78; PULSE 83–98; TEMP 36.1–36.6; O2SAT 93–98
[2017-04-06 06:16] LABS: HEMATOCRIT 34.9 % (42-52); HEMOGLOBIN 11.6 g/dL (14.0-18.0); MEAN CELL VOLUME 94.3 fL (80-100); MEAN CORPUSCULAR HEMOGLOBIN 31.4 pg (25-34); MEAN CORPUSCULAR HGB CONC 33.2 g/dl (32-36); MEAN PLATELET VOLUME 9.4 fL (7.4-10.4); PLATELET COUNT 121 K/uL (130-400); RED CELL DISTRIBUTION WIDTH CV 13.6 % (11.5-14.5); RED CELL DISTRIBUTION WIDTH SD 46.7 fL (36.4-46.3); WHITE BLOOD COUNT 7.12 K/uL (4.8-10.8)
[2017-04-06 06:44] LABS: CREATININE 1.58 mg/dl (0.60-1.40); POTASSIUM 5.9 mmol/L (3.5-5.1)
[2017-04-06] MEDS: ALBUT/IPRATROP 3MG/0.5MG NEB 3 ML VIAL INH SCH ×4 (07:07→18:50)
[2017-04-06] MEDS: NICOTINE 21 MG/24 HR TDSY TD SCH (08:00)
--- NOTE | 2017-04-06 08:04 | Anesthesiology Progress Note ---
Anesthesia Post Op Note Date & Time Apr 06, 2017 at 08:03 Vital Signs Pain Intensity: 6.0 Vital Signs Past 12 Hours Date Time Temp Pulse Resp B/P (MAP) Pulse Ox O2 Delivery O2 Flow Rate FiO2 04/06/17 07:37 36.5 84 20 148/78 (101) 98 Nasal Cannula 3.0 Humidified Oxygen 04/06/17 07:10 96 22 98 Nasal Cannula 3.0 04/06/17 04:56 36.2 88 18 154/74 (100) 98 CPAP 3.0 04/06/17 00:00 CPAP 04/05/17 23:08 92 94 30 04/05/17 22:53 36.3 93 19 148/75 (99) 94 Nasal Cannula 3.0 Notes Mental Status: alert / awake / arousable, participated in evaluation Pt Amnestic to Procedure: Yes Nausea / Vomiting: adequately controlled Pain: adequately controlled Airway Patency, RR, SpO2: stable & adequate BP & HR: stable & adequate Hydration State: stable & adequate Anesthetic Complications: no major complications apparent
[2017-04-06] MEDS: BUDESONIDE/FORMOTEROL FUMARATE 160/4.5 60 PUFFS/INHALER INH SCH ×2 (08:15→21:36)
[2017-04-06] MEDS: LISINOPRIL/HCTZ 20/25MG TAB PO SCH (08:15)
[2017-04-06] MEDS: ASPIRIN 81 MG ECTAB PO SCH (08:15)
[2017-04-06] MEDS: ATORVASTATIN 40 MG TAB PO SCH (08:15)
[2017-04-06] MEDS: TIOTROPIUM BROMIDE 5 PUFF/90 MCG INH INH SCH (08:15)
[2017-04-06] MEDS: INSULIN ASPART 100 UNITS/ML 3 ML PEN SC SCH ×4 (08:19→21:00)
[2017-04-06] MEDS: HEPARIN SOD 5000 UNIT/0.5 ML CARP SQ SCH ×2 (08:20→21:41)
[2017-04-06] MEDS: INSULIN GLARGINE SC SCH ×2 (08:20→21:41)
[2017-04-06 08:33] LABS: CREATININE 1.47 mg/dl (0.60-1.40); POTASSIUM 5.9 mmol/L (3.5-5.1)
--- NOTE | 2017-04-06 09:42 | Family Medicine Progress Note ---
Progress Note Date of Service Apr 06, 2017. Subjective Pt evaluation today including: conversation w/ patient Voiding: no voiding problems doing well, eating drinking voiding stooling wnl bipap mask in place, 2L ROS See HPI for pertinent positives and negatives. Medications Current Inpatient Medications Medications (Trade) Dose Ordered Sig/Michel Route Start Time Stop Time Status Last Admin Dose Admin Acetaminophen (Tylenol Tab) 650 mg Q4H PRN PO 03/28/17 23:45 04/27/17 23:44 Al Hydrox/Mg Hydrox/Simethicone (Maalox Max Susp) 15 ml Q4H PRN PO 03/28/17 23:45 04/27/17 23:44 Magnesium Hydroxide (Milk Of Magnesia Susp) 30 ml Q6H PRN PO 03/28/17 23:45 04/27/17 23:44 Polyethylene (Miralax Powder Packet) 17 gm DAILY PRN PO 03/28/17 23:45 04/27/17 23:44 Ondansetron HCl (Zofran Inj) 4 mg Q6H PRN IV 03/28/17 23:45 04/27/17 23:44 Albuterol/ Ipratropium (Duoneb) 3 ml QIDR INH 03/29/17 08:00 04/28/17 07:59 04/06/17 11:08 3 ML Atorvastatin Calcium (Lipitor Tab) 40 mg DAILY PO 03/29/17 09:00 04/28/17 08:59 04/06/17 08:15 40 MG Glucose (Glucose 40% Gel) 15-30 GRAMS 15 GRAMS... UD PRN PO 03/29/17 00:15 04/28/17 00:14 Glucose (Glucose Chew Tab) 4-8 Tablets 4 Tabl... UD PRN PO 03/29/17 00:15 04/28/17 00:14 Dextrose (Dextrose 50% 50ML Syringe) 25-50ML OF 50% DW IV FOR... UD PRN IV 03/29/17 00:15 04/28/17 00:14 04/05/17 06:38 50 ML Glucagon (Glucagon Inj) 1 mg UD PRN SQ 03/29/17 00:15 04/28/17 00:14 Nitroglycerin (Nitrostat Tab) 0.4 mg PRN PRN SL 03/29/17 00:15 04/28/17 00:14 Miscellaneous (Iv Fluids Completed) 1 ea PRN PRN N/A 03/29/17 00:30 03/29/18 00:29 Nicotine (Nicoderm Cq 21MG Patch) 1 patch QAM TD 03/29/17 09:00 04/28/17 08:59 04/02/17 08:38 1 PATCH Miscellaneous (Remove Nicoderm Patch) 1 ea HS N/A 03/29/17 21:00 04/28/17 20:59 04/03/17 21:00 1 EA Budesonide/ Formoterol Fumarate (Symbicort 160/ 4.5 Inh) 2 puffs BID INH 03/30/17 09:00 04/29/17 08:59 04/06/17 08:15 2 PUFFS Tiotropium [place] (Spiriva Handihaler Inhaler) 2 puff QAM INH 03/30/17 09:00 04/29/17 08:59 04/06/17 08:15 2 PUFF Morphine Sulfate (MoRPHine SULFATE INJ) 2 mg Q3H PRN IV 03/30/17 15:15 04/13/17 15:14 04/05/17 21:26 2 MG Oxycodone HCl (Roxicodone Immediate Rel Tab) 5 mg Q4H PRN PO 03/30/17 15:15 04/13/17 15:14 04/01/17 01:55 5 MG Insulin Aspart (novoLOG ASPART) SLIDING SCALE G... ACHS SC 03/31/17 06:45 04/30/17 00:00 04/06/17 08:19 9 UNITS Heparin Sodium (Porcine) (Heparin Sq 5000 Unit/0.5ml) 5,000 unit Q12 SQ 04/03/17 21:00 05/03/17 20:59 04/06/17 08:20 5,000 UNIT Aspirin (Ecotrin Tab) 81 mg QAM PO 04/04/17 09:00 05/04/17 08:59 04/06/17 08:15 81 MG Insulin Glargine (Lantus Vial) See protocol BID SC 04/05/17 20:00 04/30/17 20:59 04/06/17 08:20 20 UNITS Prednisone (PredniSONE TAB) 50 mg DAILY PO 04/06/17 08:00 05/06/17 07:59 04/06/17 08:15 50 MG Heparin Sodium (Porcine) (Heparin 10 Unit/ ml 5 ml Flush) 5 ml PRN PRN FLUSH 04/06/17 08:15 05/06/17 08:14 Amlodipine Besylate (Norvasc Tab) 5 mg QAM PO 04/07/17 08:00 05/07/17 07:59 Objective Physical Exam Notes: GENERAL: Awake, alert, well-appearing, in no distress. BiPaP mask in place, 2L. Obese. HENT: Normocephalic, atraumatic. EYES: Normal conjunctiva. Sclera non-icteric. NECK: Supple. No nuchal rigidity. FROM. No JVD. RESPIRATORY: Wheezes heard bilaterally. No crackles or rhonchi. CARDIAC: Regular rate, normal rhythm. Extremities well perfused. Pulses equal. ABDOMEN: Soft, non-distended. No tenderness to palpation. No rebound or guarding. No masses. LOWER EXTREMITIES: Calves are equal size bilaterally and non-tender. No edema. Severe dryness on LE b/l. NEURO: No motor deficits noted. SKIN: No rash or jaundice noted. Innumerable christelle derm/AK's. Laboratory Results 04/06/17 05:58 Test 04/06/17 05:58 04/06/17 07:59 04/06/17 12:03 04/06/17 13:48 Red Blood Count 3.70 M/uL (4.7-6.1) Mean Corpuscular Volume 94.3 fL (80-100) Mean Corpuscular Hemoglobin 31.4 pg (25-34) Mean Corpuscular Hemoglobin Concent 33.2 g/dl (32-36) RDW Standard Deviation 46.7 fL (36.4-46.3) RDW Coefficient of Variation 13.6 % (11.5-14.5) Mean Platelet Volume 9.4 fL (7.4-10.4) Est Creatinine Clear Calc Drug Dose 58.0 ml/min Bedside Glucose 150 mg/dl (70-99) Assessment and Plan 76 y/o M PMH hypertension, CKD, AAA, CAD, uncontrolled COPD, tobacco abuse, T2DM. Here for dyspnea found to have lung mass on CT with subsequent path result of small cell lung ca. Of note, pt has expressed a strong aversion to being in the hospital, but has been mostly amenable to all interventions and diagnostics thus far. Radiation started but patient had difficulty completing on day 2. Started chemo on 04/03 after port placement. Patient became somnolent with increase WOB on 04/03, on 04/04, he was more alert in the morning and slowly regressed, needing bipap and desatting on bipap. Doing better on 04/05, not requiring bipap during the day Developed hyperkalemia 4.9-->5.9 today; possible tumor lysis syndrome - EKG normal - Ordered stat uric acid, CMP, Mg -- elev uric acid 10.7, elev Mg 3.1, decr Ca. - Discussed with Dr. Hutchinson - ordered 30g kayexalate stat to lower potassium. - Diuresing with IVF (last echo 03/29/17 showed EF "grossly normal"), 40mg furosemide PO now. Will recheck K+ in AM labs. - DCed lisinopril/HCTZ Small cell lung cancer - found on CT, biopsy confirms - for chemo weekly with Dr. Ambriz - rad/onc consult and radiation started, scheduled 5x/wk - 04/03:Patient seemed to have difficulty ventilating late in afternoon and increasing somnolence/confusion. Restarted bipap; CXR and abg obtained ABG reassuring in sense that close to his "baseline". CXR showed some increasing vasculature markings; given 40 mg lasix - Needs to continue Bipap on discharge; setting up - will need 2 step on day of discharge Acute on chronic SOB/COPD/ANGEL - strongly suspect chronic respiratory failure related to COPD -- requiring O2 24/7 and bipap at any time of sleep to be safe - cannot safely discharge to home without noninvasive positive pressure ventilation. COPD appears severe enough that interuption in this care will likely lead to imminent decline or even possibly . - will need 2 step prior to discharge - PO Steroid taper on dc. Currently taking 50 PO daily. - due to chronic resp failure consequent to COPD, pt now requires a non- invasive home ventilator. Bi-level therapy with and w/o a rate would be ineffective as patient requires a volume targeted mode. Ventilation is required to decrease the work of breathing and improve pulmonary status. Mode/Settings: Max pressure: 12 PS Max: 5 FiO2: 30% CKD 3B - Improved slightly today, appearing prerenal - ACEi and HCTZ have been stopped - IVF and follow - suspect cor pulmonale / pulmonary HTN is what led to him appearing swollen despite also appearing intravascular volume depleted Hyperglycemia, T2DM - improving. Continue to follow on insulins with steroids Hypertension - DC ZEKE/thiazide, replaced with 5mg Norvasc daily. Hyperlipidemia - continue atorvastatin 40mg daily CAD - ASA 81mg tab daily Tobacco abuse - nicotine 21 mg patch TD QAM. DVT ppx heparin SQ 5000u Code: full Dispo tele Resident Physician Supervision Note: I was present with Dr. Sparrow during the history and exam. I discussed the case with the resident and agree with the findings and plan as documented in the note. 76-year-old male with COPD admitted with respiratory failure and new diagnosis of small cell lung cancer, now with possibility of tumor lysis syndrome as evidenced by hyperkalemia and elevated uric acid. Agree with recommendations as noted above, specifically Kayexalate, IV fluids with addition of loop diuretic, and close monitoring of serum potassium and creatinine. Documented By: Rick Humphries Resident Tracking Resident Involvement: Resident Care Provided Care Provided: Adult Hospital Medicine
--- NOTE | 2017-04-06 11:16 | Hematology/Oncology Prog Note ---
Hematology/Onc Progress Note Date of Service Apr 06, 2017. Diagnoses Small cell lung carcinoma appears limited stage Medications Medications Administered Medications (Trade) Dose Ordered Sig/Michel Route Start Time Stop Time Status Last Admin Dose Admin Albuterol/ Ipratropium (Duoneb) 3 ml NOW STAT INH 03/28/17 18:17 03/28/17 18:18 DC 03/28/17 18:32 3 ML Albuterol/ Ipratropium (Duoneb) 3 ml QIDR INH 03/29/17 08:00 04/28/17 07:59 04/06/17 11:08 3 ML Aspirin (Ecotrin Tab) 81 mg DAILY PO 03/29/17 09:00 04/02/17 19:40 DC 03/29/17 08:34 81 MG Atorvastatin Calcium (Lipitor Tab) 40 mg DAILY PO 03/29/17 09:00 04/28/17 08:59 04/06/17 08:15 40 MG HCTZ/Lisinopril (Prinzide 20-25MG Tab) 1 tab DAILY PO 03/29/17 09:00 04/28/17 08:59 04/06/17 08:15 1 TAB Methylprednisolone Sodium Succinate (Solu-Medrol IV) 125 mg NOW STAT IV 03/28/17 23:52 03/28/17 23:58 DC 03/29/17 01:21 125 MG Methylprednisolone Sodium Succinate 40 mg/Syringe 0.64 ml @ 1.5 mls/min Q8H IV 03/29/17 08:00 03/30/17 17:09 DC 03/30/17 08:43 1.5 MLS/MIN Insulin Aspart (novoLOG ASPART) SLIDING SCALE G... ACHS SC 03/29/17 04:00 03/30/17 21:37 DC 03/30/17 20:23 5 UNITS Dextrose (Dextrose 50% 50ML Syringe) 25-50ML OF 50% DW IV FOR... UD PRN IV 03/29/17 00:15 04/28/17 00:14 04/05/17 06:38 50 ML Insulin Glargine (Lantus Vial) 65 units BID SC 03/29/17 09:00 03/29/17 18:14 DC 03/29/17 08:39 65 UNITS Insulin Human Regular 5 units/ Syringe 5 ml @ 30 mls/min TODAY@0115 IV 03/29/17 01:15 03/29/17 01:16 DC 03/29/17 01:39 30 MLS/MIN Insulin Aspart (novoLOG ASPART) SLIDING SCALE G... ONE ONCE SC 03/29/17 01:15 03/29/17 01:16 DC 03/29/17 02:42 17 UNITS Insulin Glargine (Lantus Vial) 65 units ONE ONCE SC 03/29/17 01:15 03/29/17 01:16 DC 03/29/17 02:43 65 UNITS Nicotine (Nicoderm Cq 21MG Patch) 1 patch QAM TD 03/29/17 09:00 04/28/17 08:59 04/02/17 08:38 1 PATCH Miscellaneous (Remove Nicoderm Patch) 1 ea HS N/A 03/29/17 21:00 04/28/17 20:59 04/03/17 21:00 1 EA Perflutren Lipid Microsphere (Definity) 2 ml ONE ONCE IV 03/29/17 15:04 03/29/17 15:05 DC 03/29/17 15:05 2 ML Insulin Glargine (Lantus Vial) 80 units BID SC 03/29/17 21:00 03/30/17 10:20 DC 03/29/17 21:00 80 UNITS Insulin Glargine (Lantus Vial) 15 units NOW ONCE SC 03/29/17 18:15 03/29/17 18:16 DC 03/29/17 18:24 15 UNITS Insulin Aspart (novoLOG ASPART) SLIDING SCALE G... DAILY@0000,0400 SC 03/30/17 00:00 03/30/17 04:01 DC 03/30/17 00:13 20 UNITS Lorazepam 0.5 mg/ Syringe 0.5 ml @ 0.5 mls/min TODAY@2330 ONCE IV 03/29/17 23:30 03/29/17 23:31 DC 03/29/17 23:44 0.5 MLS/MIN Budesonide/ Formoterol Fumarate (Symbicort 160/ 4.5 Inh) 2 puffs BID INH 03/30/17 09:00 04/29/17 08:59 04/06/17 08:15 2 PUFFS Tiotropium [place]nie (Spiriva Handihaler Inhaler) 2 puff QAM INH 03/30/17 09:00 04/29/17 08:59 04/06/17 08:15 2 PUFF Morphine Sulfate (MoRPHine SULFATE INJ) 2 mg Q3H PRN IV 03/30/17 15:15 04/13/17 15:14 04/05/17 21:26 2 MG Oxycodone HCl (Roxicodone Immediate Rel Tab) 5 mg Q4H PRN PO 03/30/17 15:15 04/13/17 15:14 04/01/17 01:55 5 MG Methylprednisolone Sodium Succinate 40 mg/Syringe 0.64 ml @ 1.5 mls/min Q4 IV 03/30/17 20:00 03/31/17 08:15 DC 03/31/17 04:25 1.5 MLS/MIN Fentanyl Citrate (Fentanyl Inj) 100 mcg STK-MED ONCE .ROUTE 03/30/17 17:42 03/30/17 17:43 DC 03/30/17 18:01 50 MCG Ipratropium [place] (Atrovent Hfa Inhaler) 4 puffs QIDR INH 03/30/17 20:00 03/30/17 23:13 DC 03/30/17 19:49 4 PUFFS Albuterol (Ventolin Hfa Inhaler) 4 puffs QIDR INH 03/30/17 20:00 03/30/17 23:13 DC 03/30/17 19:49 4 PUFFS Fentanyl Citrate (Fentanyl Inj) 25 mcg Q2H PRN IV 03/30/17 20:15 03/31/17 08:16 DC 03/30/17 20:45 25 MCG Insulin Aspart (novoLOG ASPART) SLIDING SCALE G... ACHS SC 03/31/17 06:45 04/30/17 00:00 04/06/17 08:19 9 UNITS Insulin Aspart (novoLOG ASPART) SLIDING SCALE G... TODAY@0400 ONCE SC 03/31/17 04:00 03/31/17 04:01 DC 03/31/17 04:24 6 UNITS Insulin Aspart (novoLOG ASPART) SLIDING SCALE G... NOW STAT SC 03/31/17 00:39 03/31/17 00:40 DC 03/31/17 00:51 8 UNITS Insulin Glargine (Lantus Vial) 60 units BID SC 03/31/17 09:00 03/31/17 15:22 DC 03/31/17 08:31 60 UNITS Methylprednisolone Sodium Succinate 40 mg/Syringe 0.64 ml @ 1.5 mls/min Q12H IV 03/31/17 09:00 03/31/17 21:01 DC 03/31/17 20:36 1.5 MLS/MIN Insulin Glargine (Lantus Vial) see protocol BID SC 03/31/17 21:00 04/05/17 12:27 DC 04/05/17 09:01 40 UNITS Insulin Aspart (novoLOG ASPART) SLIDING SCALE G... TODAY@0000,0400 SC 04/01/17 00:00 04/01/17 12:51 DC 04/01/17 00:21 21 UNITS Sodium Chloride 500 ml @ 125 mls/hr Q4H ONCE IV 03/31/17 16:45 03/31/17 20:44 DC 03/31/17 17:00 125 MLS/HR Sodium Chloride 1,000 ml @ 125 mls/hr Q8H ONCE IV 04/01/17 09:00 04/01/17 16:59 DC 04/01/17 09:07 125 MLS/HR Prednisone (PredniSONE TAB) 50 mg 1234 ONCE PO 04/01/17 12:34 04/01/17 12:41 DC 04/01/17 12:54 50 MG Methylprednisolone Sodium Succinate 40 mg/Syringe 0.64 ml @ 1.5 mls/min BID IV 04/02/17 09:00 04/05/17 22:43 DC 04/05/17 20:32 1.5 MLS/MIN Heparin Sodium (Porcine) (Heparin Sq 5000 Unit/0.5ml) 5,000 unit Q12 SQ 04/01/17 21:00 04/02/17 19:40 DC 04/02/17 08:38 5,000 UNIT Heparin Sodium (Porcine) (Heparin Sq 5000 Unit/0.5ml) 5,000 unit ONE ONCE SQ 04/02/17 20:00 04/02/17 20:01 DC 04/02/17 20:12 5,000 UNIT Ondansetron HCl 16 mg/ Dexamethasone Sodium Phosphate 12 mg/Sodium Chloride 61 ml @ 180 mls/hr TODAY@1230 IV 04/03/17 12:30 04/03/17 18:00 DC 04/03/17 13:53 180 MLS/HR Carboplatin 279 mg/Sodium Chloride 277.9 ml @ 555.8 mls/ hr TODAY@1300 IV 04/03/17 13:00 04/03/17 18:00 DC 04/03/17 14:45 555.8 MLS/HR Irinotecan HCl 30 mg/Irinotecan HCl 100 mg/Dextrose 506.5 ml @ 337.667 mls/hr TODAY@1330 IV 04/03/17 13:30 04/03/17 18:00 DC 04/03/17 15:37 337.667 MLS/HR Lidocaine HCl (Xylocaine 1% Inj (Local)) 40 ml STK-MED ONCE .ROUTE 04/03/17 06:56 04/03/17 06:57 DC 04/03/17 08:15 40 ML Heparin Sodium (Porcine) (Heparin 100 Unit/ml 5ml Flush) 25 ml STK-MED ONCE .ROUTE 04/03/17 06:56 04/03/17 06:57 DC 04/03/17 06:56 20 ML Heparin Sodium (Porcine) (Heparin Sq 5000 Unit/0.5ml) 5,000 unit Q12 SQ 04/03/17 21:00 05/03/17 20:59 04/06/17 08:20 5,000 UNIT Furosemide 40 mg/ Syringe 4 ml @ 4 mls/min ONE ONCE IV 04/03/17 20:00 04/03/17 20:01 DC 04/03/17 22:20 4 MLS/MIN Aspirin (Ecotrin Tab) 81 mg QAM PO 04/04/17 09:00 05/04/17 08:59 04/06/17 08:15 81 MG Insulin Glargine (Lantus Vial) See protocol BID SC 04/05/17 20:00 04/30/17 20:59 04/06/17 08:20 20 UNITS Prednisone (PredniSONE TAB) 50 mg DAILY PO 04/06/17 08:00 05/06/17 07:59 04/06/17 08:15 50 MG Subjective He received chemotherapy 2 days ago. He seemed to tolerated it well. Not very talkative today. He denies any pain. BiPAP is ongoing Review of Systems: Constitutional: Negative for night sweats, or fever Eyes: Negative for event change of vision ENT: Negative for epistaxis, nasal discharge, sore throat, or deafness Cardiovascular: Negative for chest pain, palpitations, dizziness, diaphoresis Respiratory: Negative for new shortness of breath,hemoptysis, or purulent cough Gastrointestinal: Negative for diarrhea, hematemesis, melena, nausea, vomiting , or dyspepsia Integumentary (skin): Negative for new rash or jaundice discoloration Neurological: Negative for new weakness, seizure activity, headache, or dizziness Lymphatic/Hematologic: Negative for petechiae, bleeding or new adenopathy Musculoskeletal: Negative for new joint or back pain Allergic/Immunologic: Negative for unusual rash or pruritis. Vital Signs Vital Signs Past 12 Hours Date Time Temp Pulse Resp B/P (MAP) Pulse Ox O2 Delivery O2 Flow Rate FiO2 04/06/17 11:09 83 97 30 04/06/17 11:08 83 20 97 BiPAP/CPAP 30 04/06/17 10:54 Nasal Cannula 3.0 04/06/17 07:37 36.5 84 20 148/78 (101) 98 Nasal Cannula 3.0 Humidified Oxygen 04/06/17 07:10 96 22 98 Nasal Cannula 3.0 04/06/17 04:56 36.2 88 18 154/74 (100) 98 CPAP 3.0 04/06/17 00:00 CPAP Physical Exam Constitutional: vitals are stable. Obese gentleman. Eyes: Eyes are ELOY EOMI without conjuctival erythema or icterus. ENT: External examination was negative for masses. Neck: Negative for masses or palpable thyromegaly Respiratory: Lung sounds were generally clear bilaterally, breath sounds were decreased. Cardiovascular: Heart was RRR without significant murmur, gallops aoe rubs Gastrointestinal: No palpable hepatic or splenomegaly. The abdomen was soft with normal bowel sounds. Lymphatic system: there was no palpable peripheral lymphadenopathy Musculoskeletal System: The musculoskeletal system seemed concordant with age. Skin: The skin was negative for jaundice. Neurologic exam: The exam was negative for any focal findings. Deep tendon reflexes were equal and symmetrical. Constitutional: General Apperance: obese Level of Distress: mild distress (looks better than previous) Psychiatric: Mental Status: active & alert Orientation: oriented except where noted ENMT: pharynx normal Lungs: Respiratory Effort: tachypneic Auscuitation: decreased breath sounds (in all [place]) Cardiovascular: Heart Auscultation: RRR Abdomen: Inspection & Palpation: soft, no tenderness, guarding & rebound Extremities: no edema, pertinent finding (chronic venous stasis changes bilaterally) Laboratory Last 24 Hours Test 04/05/17 11:17 04/05/17 16:45 04/05/17 17:19 04/05/17 20:10 Bedside Glucose 97 mg/dl 51 mg/dl 72 mg/dl 152 mg/dl Test 04/06/17 00:34 04/06/17 05:58 04/06/17 07:47 04/06/17 07:59 Bedside Glucose 89 mg/dl 95 mg/dl White Blood Count 7.12 K/uL Red Blood Count 3.70 M/uL Hemoglobin 11.6 g/dL Hematocrit 34.9 % Mean Corpuscular Volume 94.3 fL Mean Corpuscular Hemoglobin 31.4 pg Mean Corpuscular Hemoglobin Concent 33.2 g/dl RDW Standard Deviation 46.7 fL RDW Coefficient of Variation 13.6 % Platelet Count 121 K/uL Mean Platelet Volume 9.4 fL Sodium Level 134 mmol/L 134 mmol/L Potassium Level 5.9 mmol/L 5.9 mmol/L Chloride Level 98 mmol/L 97 mmol/L Carbon Dioxide Level 30 mmol/L 32 mmol/L Anion Gap 6.0 mmol/L 4.0 mmol/L Blood Urea Nitrogen 91 mg/dl 89 mg/dl Creatinine 1.58 mg/dl 1.47 mg/dl Est Creatinine Clear Calc Drug Dose 54.0 ml/min 58.0 ml/min Estimated GFR () 48.9 53.3 Estimated GFR (Non- 42.2 46.0 BUN/Creatinine Ratio 57.3 60.3 Random Glucose 94 mg/dl 93 mg/dl Calcium Level 8.0 mg/dl 8.0 mg/dl Assessment & Plan Small cell lung carcinoma and treated with Irinotecan and carboplatinum. He be due for his next dose of chemotherapy Irinotecan this Thursday. Clinically he appears stable.
[2017-04-06] MEDS ORDERED: SODIUM POLYST. SULF SUSP 15G/60ML PO STA (13:56)
[2017-04-06 14:17] LABS: CALCIUM 7.8 mg/dl (8.5-10.1); CREATININE 1.52 mg/dl (0.60-1.40); POTASSIUM 5.6 mmol/L (3.5-5.1)
[2017-04-06 14:26] LABS: TOTAL PROTEIN 6.4 gm/dl (6.4-8.2); URIC ACID 10.7 mg/dl (2.6-7.2)
[2017-04-06] MEDS ORDERED: ALLOPURINOL 100 MG TAB PO ONE (15:59)
[2017-04-06] MEDS ORDERED: SODIUM CHLORIDE 0.9% 500ML 500 ML IV SCH (16:00)
[2017-04-06] MEDS ORDERED: FUROSEMIDE ORAL SOLN 40 MG/5 ML UDP PO ONE (16:00)
[2017-04-06] MEDS ORDERED: FUROSEMIDE 10 MG/ML 60ML BOTTLE PO ONE (16:30)
[2017-04-07] VITALS (14 sets, daily range): BP systolic 105–144; BP diastolic 59–85; PULSE 79–95; TEMP 36.5–36.9; O2SAT 95–98; Ht 172.7 cm; Wt 136.2 kg
[2017-04-07] MEDS: INSULIN ASPART 100 UNITS/ML 3 ML PEN SC SCH ×4 (06:30→20:59)
[2017-04-07 06:45] LABS: ALBUMIN 2.9 gm/dl (3.4-5.0); CALCIUM 7.5 mg/dl (8.5-10.1); CREATININE 1.49 mg/dl (0.60-1.40); POTASSIUM 4.9 mmol/L (3.5-5.1); URIC ACID 10.8 mg/dl (2.6-7.2)
--- NOTE | 2017-04-07 06:46 | SURGERY PROGRESS NOTE ---
DATE: 04/07/2017 Follow up on A-port placement, the operative site feels fine. The A-port has been accessed as best I could tell and discussed with the nurse that it has been used. At this point, there is no need for the patient to follow up with us unless there are any new issues with the A-port.
[2017-04-07 06:48] LABS: TOTAL PROTEIN 6.1 gm/dl (6.4-8.2)
[2017-04-07] MEDS: ALBUT/IPRATROP 3MG/0.5MG NEB 3 ML VIAL INH SCH ×4 (07:27→18:51)
[2017-04-07] MEDS: BUDESONIDE/FORMOTEROL FUMARATE 160/4.5 60 PUFFS/INHALER INH SCH ×2 (07:51→20:47)
[2017-04-07] MEDS: ATORVASTATIN 40 MG TAB PO SCH (07:52)
[2017-04-07] MEDS: TIOTROPIUM BROMIDE 5 PUFF/90 MCG INH INH SCH (07:52)
[2017-04-07] MEDS: ASPIRIN 81 MG ECTAB PO SCH (07:52)
[2017-04-07] MEDS: AMLODIPINE BESYLATE 5 MG TAB PO SCH (07:52)
[2017-04-07] MEDS: NICOTINE 21 MG/24 HR TDSY TD SCH (07:58)
[2017-04-07] MEDS ORDERED: INSULIN GLARGINE SC SCH (08:00)
[2017-04-07] MEDS ORDERED: ALLOPURINOL 100 MG TAB PO SCH (08:00)
[2017-04-07] MEDS: HEPARIN SOD 5000 UNIT/0.5 ML CARP SQ SCH ×2 (08:35→21:41)
--- NOTE | 2017-04-07 09:03 | HEME/ONC PROGRESS NOTE ---
DATE: 04/07/2017 DIAGNOSES: 1. Tumor lysis syndrome. 2. Limited stage small cell lung cancer. 3. Acute on chronic obstructive pulmonary disease. 4. Hypertension. 5. Deep venous thrombosis prophylaxis. HISTORY OF PRESENT ILLNESS: Mr. Jordan is a pleasant 76-year-old gentleman recently diagnosed with limited stage small cell lung cancer, received initial irinotecan and carboplatin under the direction of Dr. Juan Ambriz. He is now on hospital day 9 with what appears to be tumor lysis syndrome. I was contacted by the nursing staff yesterday, reporting a potassium level of 5.9 with associated elevation of uric acid and magnesium along with low calcium, all consistent with tumor lysis. Instructed staff to administer Kayexalate and allopurinol. Aggressive IV fluids have also been ordered. The patient's creatinine is mildly elevated. Recommend nephrology consult in case hemodialysis is needed. The patient himself actually feels relatively well if it were not for his breathing. He was recently started on BiPAP. He otherwise reports no pain or discomfort. He is tolerating his diet and moving bowels without difficulty. PHYSICAL EXAMINATION: GENERAL: This is a morbidly obese 76-year-old gentleman in no acute distress. VITAL SIGNS: Temperature 36.9, pulse 79, respiratory rate is 20, blood pressure 105/65. SKIN: Without rash or lesion. HEENT: Oral mucosa without erythema or ulceration. NECK: Supple. HEART: Regular rate and rhythm. LUNGS: Clear to auscultation. ABDOMEN: Obese, soft, nontender, nondistended. EXTREMITIES: Trace peripheral edema bilaterally, otherwise no clubbing, cyanosis. NEUROLOGIC: Grossly intact. LABORATORY DATA: Sodium 135, potassium 4.9, chloride 98, carbon dioxide 30, creatinine 1.49, BUN 86, magnesium 2.9, calcium 7.5, uric acid 10.8. IMPRESSION: 1. Tumor lysis syndrome. 2. Acute on chronic obstructive pulmonary disease exacerbation. 3. Limited stage small cell lung cancer. PLAN: Mr. Jordan is a pleasant 76-year-old gentleman of Dr. Juan Ambriz, recently treated with irinotecan and carboplatin for small cell lung cancer. He is also in the midst of receiving concurrent radiation therapy. Nursing contacted me by phone yesterday reporting potassium is significantly elevated at 5.9. Kayexalate 30 grams was ordered and administered. The patient's potassium has improved. Uric acid still remains slightly over 10. I ordered allopurinol 300 mg p.o. every day. Elitek could be utilized if the uric acid continues to climb despite intervention. Again, I think it is reasonable to have nephrology on board in case hemodialysis is clinically warranted. Would hold off on further chemotherapy until this gentleman is medically stable. Will discuss further with Dr. Ambriz. Continue aggressive IV hydration for now. We will continue to follow electrolytes on a daily basis. Thank you very much for assisting us in the care of this very pleasant gentleman.
[2017-04-07] MEDS ORDERED: LORAZEPAM 2 MG/ML 1 ML VIAL IV ONE (09:30)
[2017-04-07] MEDS ORDERED: LORAZEPAM 2 MG/ML 1 ML VIAL IV SCH (10:30)
--- NOTE | 2017-04-07 14:17 | Nephrology Consultation ---
Nephrology Consultation Date & Providers Date of Consultation: Apr 07, 2017. Primary Care Provider: Anil Valdez M.D. Referring Provider: Reason for Consultation Tumor lysis syndrome History of Present Illness Mr. Jordan is a 76 year old white male who is seen at the request of Dr. Humphries for evaluation of tumor lysis syndrome. Medical records in the hospital EMR were reviewed and are summarized as follows: Mr. Jordan has stage III b CKD w/ baseline creatinine 1.7, HTN, AODM, hyperlipidemia, obesity and COPD w/ continued tobacco use. Recently Mr. Jordan developed progressive dyspnea. He presented to the ED for evaluation. Chest CT revealed a R suprahilar mass and enlargement of the contralateral mediastinal lymph nodes. He was admitted to the Oncology service and had a mediport placed. On 04/03/17 Mr. Jordan started chemotherapy w/ Carboplatin & Irinotecan. He also received one radiation treatment. Laboratory studies this am revealed hyperkalemia and hyperuricemia. Kidney function remains stable. Patient was treated w/ Kayexelate, Furosemide and Allopurinol dose was increased. Mr. Jordan reports that he is scheduled for his second radiation treatment this afternoon. Past Medical/Surgical History Medical: -- Stage III CKD (baseline creatinine 1.7) -- HTN -- AODM -- Obesity -- Hyperlipidemia -- COPD w/ continued tobacco use -- Vitamin D deficiency -- OA -- GERD Allergies Coded Allergies: No Known Allergies (Verified , 03/28/17) Inpatient Medications Current Inpatient Medications Medications (Trade) Dose Ordered Sig/Michel Route Start Time Stop Time Status Last Admin Dose Admin Acetaminophen (Tylenol Tab) 650 mg Q4H PRN PO 03/28/17 23:45 04/27/17 23:44 Al Hydrox/Mg Hydrox/Simethicone (Maalox Max Susp) 15 ml Q4H PRN PO 03/28/17 23:45 04/27/17 23:44 Magnesium Hydroxide (Milk Of Magnesia Susp) 30 ml Q6H PRN PO 03/28/17 23:45 04/27/17 23:44 Polyethylene (Miralax Powder Packet) 17 gm DAILY PRN PO 03/28/17 23:45 04/27/17 23:44 Ondansetron HCl (Zofran Inj) 4 mg Q6H PRN IV 03/28/17 23:45 04/27/17 23:44 Albuterol/ Ipratropium (Duoneb) 3 ml QIDR INH 03/29/17 08:00 04/28/17 07:59 04/07/17 11:24 3 ML Atorvastatin Calcium (Lipitor Tab) 40 mg DAILY PO 03/29/17 09:00 04/28/17 08:59 04/07/17 07:52 40 MG Glucose (Glucose 40% Gel) 15-30 GRAMS 15 GRAMS... UD PRN PO 03/29/17 00:15 04/28/17 00:14 Glucose (Glucose Chew Tab) 4-8 Tablets 4 Tabl... UD PRN PO 03/29/17 00:15 04/28/17 00:14 Dextrose (Dextrose 50% 50ML Syringe) 25-50ML OF 50% DW IV FOR... UD PRN IV 03/29/17 00:15 04/28/17 00:14 04/05/17 06:38 50 ML Glucagon (Glucagon Inj) 1 mg UD PRN SQ 03/29/17 00:15 04/28/17 00:14 Nitroglycerin (Nitrostat Tab) 0.4 mg PRN PRN SL 03/29/17 00:15 04/28/17 00:14 Miscellaneous (Iv Fluids Completed) 1 ea PRN PRN N/A 03/29/17 00:30 03/29/18 00:29 Nicotine (Nicoderm Cq 21MG Patch) 1 patch QAM TD 03/29/17 09:00 04/28/17 08:59 04/02/17 08:38 1 PATCH Miscellaneous (Remove Nicoderm Patch) 1 ea HS N/A 03/29/17 21:00 04/28/17 20:59 04/03/17 21:00 1 EA Budesonide/ Formoterol Fumarate (Symbicort 160/ 4.5 Inh) 2 puffs BID INH 03/30/17 09:00 04/29/17 08:59 04/07/17 07:51 2 PUFFS Tiotropium [place] (Spiriva Handihaler Inhaler) 2 puff QAM INH 03/30/17 09:00 04/29/17 08:59 04/07/17 07:52 2 PUFF Morphine Sulfate (MoRPHine SULFATE INJ) 2 mg Q3H PRN IV 03/30/17 15:15 04/13/17 15:14 04/05/17 21:26 2 MG Oxycodone HCl (Roxicodone Immediate Rel Tab) 5 mg Q4H PRN PO 03/30/17 15:15 04/13/17 15:14 04/01/17 01:55 5 MG Insulin Aspart (novoLOG ASPART) SLIDING SCALE G... ACHS SC 03/31/17 06:45 04/30/17 00:00 04/06/17 18:24 5 UNITS Heparin Sodium (Porcine) (Heparin Sq 5000 Unit/0.5ml) 5,000 unit Q12 SQ 04/03/17 21:00 05/03/17 20:59 04/07/17 08:35 5,000 UNIT Aspirin (Ecotrin Tab) 81 mg QAM PO 04/04/17 09:00 05/04/17 08:59 04/07/17 07:52 81 MG Prednisone (PredniSONE TAB) 50 mg DAILY PO 04/06/17 08:00 05/06/17 07:59 04/07/17 07:52 50 MG Heparin Sodium (Porcine) (Heparin 10 Unit/ ml 5 ml Flush) 5 ml PRN PRN FLUSH 04/06/17 08:15 05/06/17 08:14 Amlodipine Besylate (Norvasc Tab) 5 mg QAM PO 04/07/17 08:00 05/07/17 07:59 04/07/17 07:52 5 MG Heparin Sodium (Porcine) (Heparin 100 Unit/ml 5ml Flush) 5 ml PRN PRN IV 04/07/17 07:45 05/07/17 07:44 Insulin Glargine (Lantus Vial) See protocol BID SC 04/07/17 08:00 04/30/17 07:59 04/07/17 08:34 15 UNITS Lorazepam (Ativan Inj) 0.5 mg TODAY@1030 IV 04/07/17 10:30 04/07/17 23:59 Allopurinol (Zyloprim Tab) 200 mg DAILY PO 04/08/17 08:00 05/08/17 07:59 Hydroxyzine HCl (Vistaril Tab) 25 mg HSZ PRN PO 04/07/17 13:30 05/07/17 13:29 UNV Family History Negative for CKD / ESRD Social History Smoking Status: Current Every Day Smoker Occupation: retired Retired. Current smoker Review of Systems Constitutional: No fever Respiratory: No cough Cardiovascular: No chest pain Abdomen: No pain, No nausea, No vomiting A complete review of systems was performed. Pertinent positives are noted above. All other systems are negative. Physical Exam Date Time Temp Pulse Resp B/P (MAP) Pulse Ox O2 Delivery O2 Flow Rate FiO2 04/07/17 11:24 82 18 96 BiPAP/CPAP 30 04/07/17 11:24 82 96 30 04/07/17 11:17 36.5 88 20 128/65 (86) 98 04/07/17 08:00 CPAP 3.0 04/07/17 07:28 79 95 30 04/07/17 07:27 79 18 95 BiPAP/CPAP 30 04/07/17 07:15 36.9 79 20 105/65 (78) 95 04/07/17 05:06 86 98 30 04/07/17 04:02 36.6 84 18 144/68 (93) 98 CPAP 04/07/17 02:33 81 95 30 04/07/17 00:50 BiPAP 3.0 30 04/06/17 23:22 36.4 96 19 114/62 (79) 98 CPAP 3.0 04/06/17 21:46 89 97 30 04/06/17 19:44 36.1 98 18 130/68 (88) 97 CPAP 3.0 04/06/17 18:51 86 96 30 04/06/17 18:51 86 20 96 BiPAP/CPAP 30 04/06/17 16:30 93 Nasal Cannula 3.0 BiPAP 04/06/17 15:50 36.4 91 20 128/68 93 3.0 General Appearance: + obese (chronically ill appearing) Head: atraumatic Eyes: PERRL, EOMI Neck: no adenopathy Respiratory/Chest: lungs clear, no respiratory distress Cardiovascular: regular rate, rhythm Abdomen/GI: normal bowel sounds, non tender (obese) Extremities/Musculoskelatal: no calf tenderness, no pedal edema Neurologic/Psych: oriented x 3 Skin: warm/dry Laboratory Results Last 24 Hours Test 04/06/17 16:54 04/06/17 20:19 04/07/17 05:34 04/07/17 07:44 Bedside Glucose 141 mg/dl 126 mg/dl 50 mg/dl Sodium Level 135 mmol/L Potassium Level 4.9 mmol/L Chloride Level 98 mmol/L Carbon Dioxide Level 30 mmol/L Anion Gap 7.0 mmol/L Blood Urea Nitrogen 86 mg/dl Creatinine 1.49 mg/dl Est Creatinine Clear Calc Drug Dose 57.2 ml/min Estimated GFR () 52.5 Estimated GFR (Non- 45.3 BUN/Creatinine Ratio 57.5 Random Glucose 55 mg/dl Uric Acid 10.8 mg/dl Calcium Level 7.5 mg/dl Magnesium Level 2.9 mg/dl Total Bilirubin 1.1 mg/dl Aspartate Amino Transf (AST/SGOT) 40 U/L Alanine Aminotransferase (ALT/SGPT) 34 U/L Alkaline Phosphatase 71 U/L Total Protein 6.1 gm/dl Albumin 2.9 gm/dl Globulin 3.2 gm/dl Albumin/Globulin Ratio 0.9 Test 04/07/17 08:20 04/07/17 08:43 04/07/17 11:27 04/07/17 13:43 Bedside Glucose 62 mg/dl 115 mg/dl 144 mg/dl Impression (1) Tumor lysis syndrome (2) Chronic kidney disease (3) Small cell lung carcinoma (4) COPD (chronic obstructive pulmonary disease) Recommendations -- Hold radiation therapy this afternoon (discussed w/ Dr. Fernandes) -- Agree w/ increasing Allopurinol dose to 200 mg daily -- Monitor PRP, UA, Ca, PO4 daily -- Will provide gentle hydration -- Will order G-6-PD level -- Kidney function remains stable at this time. Agree w/ increasing Allopurinol to decrease further uric acid production. Will provide IVF and request radiation therapy to be held today. If uric acid increases further will order Rasburicase. Pharmacy indicates 24 hour processing time to obtain medication if needed
[2017-04-07] MEDS: SODIUM CHLORIDE 0.9% 1000ML 1,000 ML IV SCH ×2 (14:44→23:44)
[2017-04-07] MEDS ORDERED: SODIUM CHLORIDE 0.65% NA SOLN 45 ML (OCEAN) ONE (18:13)
--- NOTE | 2017-04-07 20:38 | Family Medicine Progress Note ---
Progress Note Date of Service Apr 07, 2017. Subjective Pt evaluation today including: conversation w/ patient Voiding: no voiding problems Pt reports no events overnight, eating well, voiding well. Using BiPap/CPAP overnight, O2 during the day, denies respiratory distress or pain. Pt does complain of insomnia says he wakes early in the morning, and would like something for sleep. ROS See HPI for pertinent positives and negatives. Medications Current Inpatient Medications Medications (Trade) Dose Ordered Sig/Michel Route Start Time Stop Time Status Last Admin Dose Admin Acetaminophen (Tylenol Tab) 650 mg Q4H PRN PO 03/28/17 23:45 04/27/17 23:44 Al Hydrox/Mg Hydrox/Simethicone (Maalox Max Susp) 15 ml Q4H PRN PO 03/28/17 23:45 04/27/17 23:44 Magnesium Hydroxide (Milk Of Magnesia Susp) 30 ml Q6H PRN PO 03/28/17 23:45 04/27/17 23:44 Polyethylene (Miralax Powder Packet) 17 gm DAILY PRN PO 03/28/17 23:45 04/27/17 23:44 Ondansetron HCl (Zofran Inj) 4 mg Q6H PRN IV 03/28/17 23:45 04/27/17 23:44 Albuterol/ Ipratropium (Duoneb) 3 ml QIDR INH 03/29/17 08:00 04/28/17 07:59 04/07/17 18:51 3 ML Atorvastatin Calcium (Lipitor Tab) 40 mg DAILY PO 03/29/17 09:00 04/28/17 08:59 04/07/17 07:52 40 MG Glucose (Glucose 40% Gel) 15-30 GRAMS 15 GRAMS... UD PRN PO 03/29/17 00:15 04/28/17 00:14 Glucose (Glucose Chew Tab) 4-8 Tablets 4 Tabl... UD PRN PO 03/29/17 00:15 04/28/17 00:14 Dextrose (Dextrose 50% 50ML Syringe) 25-50ML OF 50% DW IV FOR... UD PRN IV 03/29/17 00:15 04/28/17 00:14 04/05/17 06:38 50 ML Glucagon (Glucagon Inj) 1 mg UD PRN SQ 03/29/17 00:15 04/28/17 00:14 Nitroglycerin (Nitrostat Tab) 0.4 mg PRN PRN SL 03/29/17 00:15 04/28/17 00:14 Miscellaneous (Iv Fluids Completed) 1 ea PRN PRN N/A 03/29/17 00:30 03/29/18 00:29 Nicotine (Nicoderm Cq 21MG Patch) 1 patch QAM TD 03/29/17 09:00 04/28/17 08:59 04/02/17 08:38 1 PATCH Miscellaneous (Remove Nicoderm Patch) 1 ea HS N/A 03/29/17 21:00 04/28/17 20:59 04/03/17 21:00 1 EA Budesonide/ Formoterol Fumarate (Symbicort 160/ 4.5 Inh) 2 puffs BID INH 03/30/17 09:00 04/29/17 08:59 04/07/17 07:51 2 PUFFS Tiotropium [place] (Spiriva Handihaler Inhaler) 2 puff QAM INH 03/30/17 09:00 04/29/17 08:59 04/07/17 07:52 2 PUFF Morphine Sulfate (MoRPHine SULFATE INJ) 2 mg Q3H PRN IV 03/30/17 15:15 04/13/17 15:14 04/05/17 21:26 2 MG Oxycodone HCl (Roxicodone Immediate Rel Tab) 5 mg Q4H PRN PO 03/30/17 15:15 04/13/17 15:14 04/01/17 01:55 5 MG Insulin Aspart (novoLOG ASPART) SLIDING SCALE G... ACHS SC 03/31/17 06:45 04/30/17 00:00 04/07/17 17:40 13 UNITS Heparin Sodium (Porcine) (Heparin Sq 5000 Unit/0.5ml) 5,000 unit Q12 SQ 04/03/17 21:00 05/03/17 20:59 04/07/17 08:35 5,000 UNIT Aspirin (Ecotrin Tab) 81 mg QAM PO 04/04/17 09:00 05/04/17 08:59 04/07/17 07:52 81 MG Prednisone (PredniSONE TAB) 50 mg DAILY PO 04/06/17 08:00 05/06/17 07:59 04/07/17 07:52 50 MG Heparin Sodium (Porcine) (Heparin 10 Unit/ ml 5 ml Flush) 5 ml PRN PRN FLUSH 04/06/17 08:15 05/06/17 08:14 Amlodipine Besylate (Norvasc Tab) 5 mg QAM PO 04/07/17 08:00 05/07/17 07:59 04/07/17 07:52 5 MG Heparin Sodium (Porcine) (Heparin 100 Unit/ml 5ml Flush) 5 ml PRN PRN IV 04/07/17 07:45 05/07/17 07:44 Insulin Glargine (Lantus Vial) See protocol BID SC 04/07/17 08:00 04/30/17 07:59 04/07/17 08:34 15 UNITS Lorazepam (Ativan Inj) 0.5 mg TODAY@1030 IV 04/07/17 10:30 04/07/17 23:59 Allopurinol (Zyloprim Tab) 200 mg DAILY PO 04/08/17 08:00 05/08/17 07:59 Hydroxyzine HCl (Vistaril Tab) 25 mg HSZ PRN PO 04/07/17 13:30 05/07/17 13:29 Sodium Chloride 1,000 ml @ 100 mls/hr Q10H IV 04/07/17 13:45 05/07/17 13:44 04/07/17 14:44 100 MLS/HR Objective Vital Signs Date Time Temp Pulse Resp B/P (MAP) Pulse Ox O2 Delivery O2 Flow Rate FiO2 04/07/17 18:51 86 18 98 Nasal Cannula 3.0 04/07/17 16:10 36.6 87 20 136/75 (95) 96 BiPAP 04/07/17 16:00 CPAP 3.0 04/07/17 15:35 84 18 95 BiPAP/CPAP 30 04/07/17 15:35 84 95 30 04/07/17 11:24 82 18 96 BiPAP/CPAP 30 04/07/17 11:24 82 96 30 04/07/17 11:17 36.5 88 20 128/65 (86) 98 04/07/17 08:00 CPAP 3.0 04/07/17 07:28 79 95 30 04/07/17 07:27 79 18 95 BiPAP/CPAP 30 04/07/17 07:15 36.9 79 20 105/65 (78) 95 04/07/17 05:06 86 98 30 04/07/17 04:02 36.6 84 18 144/68 (93) 98 CPAP 04/07/17 02:33 81 95 30 04/07/17 00:50 BiPAP 3.0 30 04/06/17 23:22 36.4 96 19 114/62 (79) 98 CPAP 3.0 04/06/17 21:46 89 97 30 Physical Exam Notes: GENERAL: Awake, alert, well-appearing, in no distress. Nasal cannula in place. Obese. HENT: Normocephalic, atraumatic. EYES: Normal conjunctiva. Sclera non-icteric. NECK: Supple. No nuchal rigidity. FROM. No JVD. RESPIRATORY: Decreased breath sounds bilaterally. No crackles or rhonchi. CARDIAC: Regular rate, normal rhythm. Extremities well perfused. Pulses equal. ABDOMEN: Soft, non-distended. No tenderness to palpation. No rebound or guarding. No masses. Port in place over left anterior chest. LOWER EXTREMITIES: Calves are equal size bilaterally and non-tender. No edema. Severe dryness on LE b/l. NEURO: No motor deficits noted. SKIN: No rash or jaundice noted. Innumerable christelle derm/AK's. Laboratory Results 04/07/17 05:34 Test 04/07/17 05:34 04/07/17 14:01 04/07/17 16:54 Anion Gap 7.0 mmol/L (3-11) Est Creatinine Clear Calc Drug Dose 57.2 ml/min Estimated GFR () 52.5 Estimated GFR (Non- 45.3 BUN/Creatinine Ratio 57.5 (10-20) Uric Acid 10.8 mg/dl (2.6-7.2) Calcium Level 7.5 mg/dl (8.5-10.1) Magnesium Level 2.9 mg/dl (1.8-2.4) Total Bilirubin 1.1 mg/dl (0.2-1) Aspartate Amino Transf (AST/SGOT) 40 U/L (15-37) Alanine Aminotransferase (ALT/SGPT) 34 U/L (12-78) Alkaline Phosphatase 71 U/L (45-117) Total Protein 6.1 gm/dl (6.4-8.2) Albumin 2.9 gm/dl (3.4-5.0) Globulin 3.2 gm/dl (2.5-4.0) Albumin/Globulin Ratio 0.9 (0.9-2) Bedside Glucose 141 mg/dl (70-99) Assessment and Plan 76 y/o M PMH hypertension, CKD, AAA, CAD, uncontrolled COPD, tobacco abuse, T2DM. Here for dyspnea found to have lung mass on CT with subsequent path result of small cell lung ca. Of note, pt has expressed a strong aversion to being in the hospital, but has been mostly amenable to all interventions and diagnostics thus far. Radiation started but patient had difficulty completing on day 2. Started chemo on 04/03 after port placement. Patient became somnolent with increase WOB on 04/03, on 04/04, he was more alert in the morning and slowly regressed, needing bipap and desatting on bipap. Doing better on 04/05, not requiring bipap during the day Developed hyperkalemia likely 2/2 tumor lysis syndrome - Yesterday given 30g kayexalate stat to lower potassium; hyperkalemia resolved - EKG normal - Uric acid remains elevated (10.8) - Continue Diuresing with IVF (last echo 03/29/17 showed EF "grossly normal"), 40mg furosemide PO daily.Follow BMP. - DCed lisinopril/HCTZ - Nephro consulted, appreciate recs: Increased Allopurinol to 200 mg daily. Hold radiation therapy this afternoon (Dr. Jacobs discussed w/ Dr. Fernandes). Monitor PRP, UA, Ca, PO4 daily. Gentle hydration Will order G-6-PD level If uric acid increases further will order Rasburicase. Pharmacy indicates 24 hour processing time to obtain medication if needed Small cell lung cancer - found on CT, biopsy confirms - for chemo weekly with Dr. Ambriz - rad/onc consult and radiation started, scheduled 5x/wk - Needs to continue Bipap on discharge; setting up - will need 2 step on day of discharge Acute on chronic SOB/COPD/ANGEL - strongly suspect chronic respiratory failure related to COPD -- requiring O2 24/7 and bipap at any time of sleep to be safe - cannot safely discharge to home without noninvasive positive pressure ventilation. COPD appears severe enough that interuption in this care will likely lead to imminent decline or even possibly . - will need 2 step prior to discharge - PO Steroid taper on dc. Currently taking 50 PO daily. - due to chronic resp failure consequent to COPD, pt now requires a non- invasive home ventilator. Bi-level therapy with and w/o a rate would be ineffective as patient requires a volume targeted mode. Ventilation is required to decrease the work of breathing and improve pulmonary status. Mode/Settings: Max pressure: 12 PS Max: 5 FiO2: 30% CKD 3B - Improved slightly today, appearing prerenal - ACEi and HCTZ have been stopped - IVF and follow - suspect cor pulmonale / pulmonary HTN is what led to him appearing swollen despite also appearing intravascular volume depleted Hyperglycemia, T2DM - improving. Continue to follow on insulins with steroids Hypertension - DC ZEKE/thiazide, replaced with 5mg Norvasc daily. - controlled Hyperlipidemia - continue atorvastatin 40mg daily CAD - ASA 81mg tab daily Tobacco abuse - nicotine 21 mg patch TD QAM. DVT ppx heparin SQ 5000u Code: full Dispo: Tele Resident Physician Supervision Note: I interviewed and examined the patient. Discussed with Dr. Sparrow and agree with findings and plan as documented in the note. I also discussed the case with nephrology and oncology consultants. Documented By: Rick Humphries Continued [facility] stay due to: abnormal vital signs Resident Tracking Resident Involvement: Resident Care Provided Care Provided: Adult Hospital Medicine
[2017-04-07] MEDS: MoRPHine SULFATE 2 MG/ML CARP IV PRN (22:28)
[2017-04-08] VITALS (13 sets, daily range): BP systolic 117–150; BP diastolic 62–91; PULSE 77–93; TEMP 36.3–36.6; O2SAT 95–100
[2017-04-08] MEDS: MoRPHine SULFATE 2 MG/ML CARP IV PRN ×3 (02:41→22:20)
[2017-04-08 06:31] LABS: HEMATOCRIT 32.2 % (42-52); HEMOGLOBIN 10.6 g/dL (14.0-18.0); MEAN CELL VOLUME 95.3 fL (80-100); MEAN CORPUSCULAR HEMOGLOBIN 31.4 pg (25-34); MEAN CORPUSCULAR HGB CONC 32.9 g/dl (32-36); RED CELL DISTRIBUTION WIDTH CV 13.4 % (11.5-14.5); RED CELL DISTRIBUTION WIDTH SD 46.9 fL (36.4-46.3); WHITE BLOOD COUNT 6.56 K/uL (4.8-10.8)
[2017-04-08] MEDS: ALBUT/IPRATROP 3MG/0.5MG NEB 3 ML VIAL INH SCH ×4 (06:58→18:56)
[2017-04-08 07:07] LABS: CALCIUM 7.3 mg/dl (8.5-10.1); CREATININE 1.4 mg/dl (0.60-1.40); PHOSPHORUS 3.8 mg/dl (2.5-4.9)
[2017-04-08 07:20] LABS: MEAN PLATELET VOLUME 10.2 fL (7.4-10.4); PLATELET COUNT 77 K/uL (130-400)
[2017-04-08] MEDS: SODIUM CHLORIDE 0.9% 1000ML 1,000 ML IV SCH ×2 (07:36→18:54)
[2017-04-08] MEDS: TIOTROPIUM BROMIDE 5 PUFF/90 MCG INH INH SCH (07:37)
[2017-04-08] MEDS: BUDESONIDE/FORMOTEROL FUMARATE 160/4.5 60 PUFFS/INHALER INH SCH ×2 (07:37→21:32)
[2017-04-08] MEDS: ATORVASTATIN 40 MG TAB PO SCH (07:38)
[2017-04-08] MEDS: ASPIRIN 81 MG ECTAB PO SCH (07:38)
[2017-04-08] MEDS: ALLOPURINOL 100 MG TAB PO SCH (07:38)
[2017-04-08] MEDS: NICOTINE 21 MG/24 HR TDSY TD SCH ×2 (07:39→07:42)
[2017-04-08] MEDS: AMLODIPINE BESYLATE 5 MG TAB PO SCH (07:39)
[2017-04-08] MEDS: INSULIN ASPART 100 UNITS/ML 3 ML PEN SC SCH ×4 (08:41→21:34)
[2017-04-08] MEDS: HEPARIN SOD 5000 UNIT/0.5 ML CARP SQ SCH (08:41)
--- NOTE | 2017-04-08 08:42 | HEME/ONC PROGRESS NOTE ---
DATE: 04/08/2017 DIAGNOSES: 1. Tumor lysis syndrome. 2. Limited stage small cell lung cancer. 3. Acute on chronic obstructive pulmonary disease. 4. Hypertension. 5. Deep venous thrombosis prophylaxis. SUBJECTIVE: Mr. Jordan is a pleasant 76-year-old gentleman, recently diagnosed with limited stage small cell lung cancer, initially received irinotecan and carboplatin under the direction of Dr. Ambriz. The patient is now on hospital day 10 with new onset tumor lysis syndrome. He has been receiving aggressive IV hydration as well as allopurinol and Kayexalate to correct potassium. Creatinine remains mildly elevated. Nephrology is on board and following the patient closely. Clinically, he seems to be doing better, breathing is actually somewhat improved today. He was recently started on BiPAP. He reports no pain or discomfort otherwise. Tolerating his diet and moving bowels without difficulty. PHYSICAL EXAMINATION: GENERAL: Obese 76-year-old gentleman in no acute distress. VITAL SIGNS: Temperature 36.3, pulse 81, respirations 20, blood pressure 126/66. SKIN: Without rash or lesion. HEENT: Oral mucosa without erythema or ulceration. NECK: Supple. HEART: Regular rate and rhythm. No clicks, rubs or murmurs. LUNGS: Clear to auscultation bilaterally. ABDOMEN: Obese, soft, nontender. EXTREMITIES: 1 to 2+ peripheral edema bilaterally. NEUROLOGIC: Grossly intact. LABORATORY DATA: WBC count 6560, hemoglobin 10.6, platelet count 77,000. Sodium 134, potassium 5, chloride 98, carbon dioxide 29, BUN 79, creatinine 1.4, uric acid 9, phosphorus 3.8, magnesium 2.7. IMPRESSION: 1. Tumor lysis syndrome. 2. Acute on chronic obstructive pulmonary disease. 3. Limited stage small cell lung cancer. 4. Acute renal injury. 5. Thrombocytopenia. PLAN: Mr. Jordan is a pleasant 76-year-old gentleman, under the care of Dr. Juan Ambriz, recently administered irinotecan and carboplatin for limited stage small cell lung cancer. He receives concurrent radiation therapy. Electrolytes have improved as expected with aggressive IV hydration. Uric acid specifically has dropped to 9. Mr. Jordan is due for chemotherapy today but unfortunately not medically stable enough to proceed. We will continue to monitor daily chemistries. Thrombocytopenia I suspect is secondary to carboplatin toxicity and should recover over time. I have nothing further to add. Agree with current medical management. We will continue to follow him periodically during his hospital stay. Thank you again for assisting us in the care of this very pleasant gentleman.
[2017-04-08] MEDS: INSULIN GLARGINE SOLOSTAR 100 UNITS/ML 3 ML PEN SC SCH ×2 (08:48→21:35)
--- NOTE | 2017-04-08 12:48 | Family Medicine Progress Note ---
Progress Note Date of Service Apr 08, 2017. Subjective Pt reports no events overnight, eating well, voiding well. Using BiPap/CPAP overnight, O2 during the day, denies respiratory distress or pain or dysuria. Pt reports improved sleep on vestaril. ROS See HPI for pertinent positives and negatives. Medications Current Inpatient Medications Medications (Trade) Dose Ordered Sig/Michel Route Start Time Stop Time Status Last Admin Dose Admin Acetaminophen (Tylenol Tab) 650 mg Q4H PRN PO 03/28/17 23:45 04/27/17 23:44 Al Hydrox/Mg Hydrox/Simethicone (Maalox Max Susp) 15 ml Q4H PRN PO 03/28/17 23:45 04/27/17 23:44 Magnesium Hydroxide (Milk Of Magnesia Susp) 30 ml Q6H PRN PO 03/28/17 23:45 04/27/17 23:44 Polyethylene (Miralax Powder Packet) 17 gm DAILY PRN PO 03/28/17 23:45 04/27/17 23:44 Ondansetron HCl (Zofran Inj) 4 mg Q6H PRN IV 03/28/17 23:45 04/27/17 23:44 Albuterol/ Ipratropium (Duoneb) 3 ml QIDR INH 03/29/17 08:00 04/28/17 07:59 04/08/17 11:10 3 ML Atorvastatin Calcium (Lipitor Tab) 40 mg DAILY PO 03/29/17 09:00 04/28/17 08:59 04/08/17 07:38 40 MG Glucose (Glucose 40% Gel) 15-30 GRAMS 15 GRAMS... UD PRN PO 03/29/17 00:15 04/28/17 00:14 Glucose (Glucose Chew Tab) 4-8 Tablets 4 Tabl... UD PRN PO 03/29/17 00:15 04/28/17 00:14 Dextrose (Dextrose 50% 50ML Syringe) 25-50ML OF 50% DW IV FOR... UD PRN IV 03/29/17 00:15 04/28/17 00:14 04/05/17 06:38 50 ML Glucagon (Glucagon Inj) 1 mg UD PRN SQ 03/29/17 00:15 04/28/17 00:14 Nitroglycerin (Nitrostat Tab) 0.4 mg PRN PRN SL 03/29/17 00:15 04/28/17 00:14 Miscellaneous (Iv Fluids Completed) 1 ea PRN PRN N/A 03/29/17 00:30 03/29/18 00:29 Nicotine (Nicoderm Cq 21MG Patch) 1 patch QAM TD 03/29/17 09:00 04/28/17 08:59 04/02/17 08:38 1 PATCH Miscellaneous (Remove Nicoderm Patch) 1 ea HS N/A 03/29/17 21:00 04/28/17 20:59 04/03/17 21:00 1 EA Budesonide/ Formoterol Fumarate (Symbicort 160/ 4.5 Inh) 2 puffs BID INH 03/30/17 09:00 04/29/17 08:59 04/08/17 07:37 2 PUFFS Tiotropium [place] (Spiriva Handihaler Inhaler) 2 puff QAM INH 03/30/17 09:00 04/29/17 08:59 04/08/17 07:37 2 PUFF Morphine Sulfate (MoRPHine SULFATE INJ) 2 mg Q3H PRN IV 03/30/17 15:15 04/13/17 15:14 04/08/17 02:41 2 MG Oxycodone HCl (Roxicodone Immediate Rel Tab) 5 mg Q4H PRN PO 03/30/17 15:15 04/13/17 15:14 04/01/17 01:55 5 MG Insulin Aspart (novoLOG ASPART) SLIDING SCALE G... ACHS SC 03/31/17 06:45 04/30/17 00:00 04/08/17 08:41 13 UNITS Heparin Sodium (Porcine) (Heparin Sq 5000 Unit/0.5ml) 5,000 unit Q12 SQ 04/03/17 21:00 05/03/17 20:59 04/08/17 08:41 5,000 UNIT Aspirin (Ecotrin Tab) 81 mg QAM PO 04/04/17 09:00 05/04/17 08:59 04/08/17 07:38 81 MG Prednisone (PredniSONE TAB) 50 mg DAILY PO 04/06/17 08:00 05/06/17 07:59 04/08/17 07:38 50 MG Heparin Sodium (Porcine) (Heparin 10 Unit/ ml 5 ml Flush) 5 ml PRN PRN FLUSH 04/06/17 08:15 05/06/17 08:14 Amlodipine Besylate (Norvasc Tab) 5 mg QAM PO 04/07/17 08:00 05/07/17 07:59 04/08/17 07:39 5 MG Heparin Sodium (Porcine) (Heparin 100 Unit/ml 5ml Flush) 5 ml PRN PRN IV 04/07/17 07:45 05/07/17 07:44 Allopurinol (Zyloprim Tab) 200 mg DAILY PO 04/08/17 08:00 05/08/17 07:59 04/08/17 07:38 200 MG Hydroxyzine HCl (Vistaril Tab) 25 mg HSZ PRN PO 04/07/17 13:30 05/07/17 13:29 Sodium Chloride 1,000 ml @ 100 mls/hr Q10H IV 04/07/17 13:45 05/07/17 13:44 04/08/17 07:36 100 MLS/HR Insulin Glargine (Lantus Solostar Pen) 15 units BID SC 04/08/17 08:00 05/08/17 07:59 04/08/17 08:48 15 UNITS Objective Vital Signs Date Time Temp Pulse Resp B/P (MAP) Pulse Ox O2 Delivery O2 Flow Rate FiO2 04/08/17 11:14 79 96 30 04/08/17 11:12 79 19 96 BiPAP/CPAP 30 04/08/17 11:08 36.3 77 20 141/91 (108) 96 04/08/17 08:00 97 BiPAP 04/08/17 07:23 36.3 81 20 126/66 (86) 97 04/08/17 06:58 78 97 30 04/08/17 06:58 78 19 97 BiPAP/CPAP 30 04/08/17 02:47 36.3 81 21 117/62 (80) 97 BiPAP 04/08/17 00:30 BiPAP 04/07/17 23:31 36.5 80 20 113/85 (94) 95 BiPAP 04/07/17 22:36 Nasal Cannula 4.0 04/07/17 22:16 89 95 30 04/07/17 20:11 36.6 95 22 121/59 (79) 95 Room Air 04/07/17 18:51 86 18 98 Nasal Cannula 3.0 04/07/17 16:10 36.6 87 20 136/75 (95) 96 BiPAP 04/07/17 16:00 CPAP 3.0 04/07/17 15:35 84 18 95 BiPAP/CPAP 30 04/07/17 15:35 84 95 30 Physical Exam Notes: GENERAL: Awake, alert, well-appearing, in no distress. Nasal cannula in place. Obese. HENT: Normocephalic, atraumatic. EYES: Normal conjunctiva. Sclera non-icteric. NECK: Supple. No nuchal rigidity. FROM. No JVD. RESPIRATORY: Decreased breath sounds bilaterally. No crackles or rhonchi. CARDIAC: Regular rate, normal rhythm. Extremities well perfused. Pulses equal. ABDOMEN: Soft, non-distended. No tenderness to palpation. No rebound or guarding. No masses. Port in place over left anterior chest. LOWER EXTREMITIES: Calves are equal size bilaterally and non-tender. No edema. Severe dryness on LE b/l. NEURO: No motor deficits noted. SKIN: No rash or jaundice noted. Innumerable christelle derm/AK's. Laboratory Results 04/08/17 05:48 04/08/17 05:48 Test 04/07/17 14:01 04/08/17 05:48 04/08/17 11:41 Red Blood Count 3.38 M/uL (4.7-6.1) Mean Corpuscular Volume 95.3 fL (80-100) Mean Corpuscular Hemoglobin 31.4 pg (25-34) Mean Corpuscular Hemoglobin Concent 32.9 g/dl (32-36) RDW Standard Deviation 46.9 fL (36.4-46.3) RDW Coefficient of Variation 13.4 % (11.5-14.5) Mean Platelet Volume 10.2 fL (7.4-10.4) Platelet Estimate DECREASED Anion Gap 7.0 mmol/L (3-11) Est Creatinine Clear Calc Drug Dose 60.9 ml/min Estimated GFR () 56.6 Estimated GFR (Non- 48.8 BUN/Creatinine Ratio 56.5 (10-20) Uric Acid 9.0 mg/dl (2.6-7.2) Calcium Level 7.3 mg/dl (8.5-10.1) Phosphorus Level 3.8 mg/dl (2.5-4.9) Magnesium Level 2.7 mg/dl (1.8-2.4) Bedside Glucose 152 mg/dl (70-99) Assessment and Plan 76 y/o M PMH hypertension, CKD, AAA, CAD, uncontrolled COPD, tobacco abuse, T2DM. Here for dyspnea found to have lung mass on CT with subsequent path result of small cell lung ca. Of note, pt has expressed a strong aversion to being in the hospital, but has been mostly amenable to all interventions and diagnostics thus far. Radiation started but patient had difficulty completing on day 2. Started chemo on 04/03 after port placement. Patient became somnolent with increase WOB on 04/03, on , he was more alert in the morning and slowly regressed, needing bipap and desatting on bipap. Doing better on 04/05, not requiring bipap during the day Developed hyperkalemia likely 2/2 tumor lysis syndrome - given 30g kayexalate stat to lower potassium; hyperkalemia resolved - EKG normal - Uric acid remains elevated (9) but trending down - Continue Diuresing with IVF (last echo 03/29/17 showed EF "grossly normal"), Furosemide DCed yesterday.Follow BMP. - DCed lisinopril/HCTZ - Nephro consulted, appreciate recs: Increased Allopurinol to 200 mg daily. Holding radiation therapy until medically stable (Dr. Jacobs discussed w/ Dr. Fernandes). Monitor PRP, UA, Ca, PO4 daily. Gentle hydration Will order G-6-PD level -- pending If uric acid increases further will order Rasburicase. Pharmacy indicates 24 hour processing time to obtain medication if needed Small cell lung cancer - found on CT, biopsy confirms - for chemo weekly with Dr. Ambriz - rad/onc consult and radiation started, scheduled 5x/wk - Needs to continue Bipap on discharge; setting up - will need 2 step on day of discharge Acute on chronic SOB/COPD/ANGEL - strongly suspect chronic respiratory failure related to COPD -- requiring O2 24/7 and bipap at any time of sleep to be safe - cannot safely discharge to home without noninvasive positive pressure ventilation. COPD appears severe enough that interuption in this care will likely lead to imminent decline or even possibly . - will need 2 step prior to discharge - PO Steroid taper on dc. Currently taking Pred 50 PO daily. - due to chronic resp failure consequent to COPD, pt now requires a non- invasive home ventilator. Bi-level therapy with and w/o a rate would be ineffective as patient requires a volume targeted mode. Ventilation is required to decrease the work of breathing and improve pulmonary status. Mode/Settings: Max pressure: 12 PS Max: 5 FiO2: 30% CKD 3B - Improved slightly today, appearing prerenal - ACEi and HCTZ have been stopped - IVF and follow - suspect cor pulmonale / pulmonary HTN is what led to him appearing swollen despite also appearing intravascular volume depleted - Meatman 1.4 today, better than it's ever been Hyperglycemia, T2DM - improving. Continue to follow on insulins with steroids Hypertension - DC ZEKE/thiazide, replaced with 5mg Norvasc daily. - controlled Hyperlipidemia - continue atorvastatin 40mg daily CAD - ASA 81mg tab daily Tobacco abuse - nicotine 21 mg patch TD QAM. Insomnia - added Vestaril, tolerating. Can continue on DC DVT ppx heparin SQ 5000u Code: full Dispo: Tele Resident Physician Supervision Note: I interviewed and examined the patient. Discussed with Dr. Sparrow and agree with findings and plan as documented in the note. I also discussed the case with nephrology and oncology. Patient will have RT treatment this afternoon. Recheck electrolytes and uric acid in the AM. Continue gentle IVF. Documented By: Rick Humphries Continued [facility] stay due to: multiple IV medications needed Resident Tracking Resident Involvement: Resident Care Provided Care Provided: Adult Hospital Medicine
--- NOTE | 2017-04-08 17:10 | Nephrology Progress Note ---
Nephrology Progress Note Date of Service Apr 08, 2017. Chief Complaint Tumor lysis syndrome Subjective Mr. Jordan was seen & examined in his hospital room this morning. He denied dyspnea or difficulty voiding. He voiced no new medical concerns. Review of Systems Constitutional: No fever Respiratory: No dyspnea at rest Abdomen: No pain, No nausea, No vomiting Genitourinary - Male: No gross hematuria, No urinary hesitancy Extremities: No leg edema A complete review of systems was performed. Pertinent positives are noted above. All other systems are negative. Vital Signs Last 8 Hrs Date Time Temp Pulse Resp B/P (MAP) Pulse Ox O2 Delivery O2 Flow Rate FiO2 04/08/17 14:34 89 18 96 Nasal Cannula 3.0 04/08/17 11:14 79 96 30 04/08/17 11:12 79 19 96 BiPAP/CPAP 30 04/08/17 11:08 36.3 77 20 141/91 (108) 96 I & O 24-Hour Column 04/09/17 08:00 Intake Total 1040 ml Output Total 950 ml Balance 90 ml Last Recorded Weight Weight (Kilograms): 133.600 Physical Exam General Appearance: no apparent distress Head: normocephalic, atraumatic Eyes: PERRL, EOMI Neck: no adenopathy Respiratory/Chest: lungs clear, no respiratory distress Cardiovascular: regular rate, rhythm Abdomen/GI: normal bowel sounds, non tender, soft Extremities/Musculoskelatal: no pedal edema Neurologic/Psych: alert, oriented x 3 Family History Negative for CKD / ESRD Social History Occupation: retired Retired. Current smoker Laboratory Results Past 24 Hours 04/08/17 05:48 04/08/17 05:48 Test 04/07/17 20:57 04/08/17 05:48 04/08/17 07:31 04/08/17 11:41 Bedside Glucose 131 mg/dl (70-99) 91 mg/dl (70-99) 152 mg/dl (70-99) Red Blood Count 3.38 M/uL (4.7-6.1) Mean Corpuscular Volume 95.3 fL (80-100) Mean Corpuscular Hemoglobin 31.4 pg (25-34) Mean Corpuscular Hemoglobin Concent 32.9 g/dl (32-36) RDW Standard Deviation 46.9 fL (36.4-46.3) RDW Coefficient of Variation 13.4 % (11.5-14.5) Mean Platelet Volume 10.2 fL (7.4-10.4) Platelet Estimate DECREASED Anion Gap 7.0 mmol/L (3-11) Est Creatinine Clear Calc Drug Dose 60.9 ml/min Estimated GFR () 56.6 Estimated GFR (Non- 48.8 BUN/Creatinine Ratio 56.5 (10-20) Uric Acid 9.0 mg/dl (2.6-7.2) Calcium Level 7.3 mg/dl (8.5-10.1) Phosphorus Level 3.8 mg/dl (2.5-4.9) Magnesium Level 2.7 mg/dl (1.8-2.4) Allergies Coded Allergies: No Known Allergies (Verified , 03/28/17) Medications Current Inpatient Medications Medications (Trade) Dose Ordered Sig/Michel Route Start Time Stop Time Status Last Admin Dose Admin Acetaminophen (Tylenol Tab) 650 mg Q4H PRN PO 03/28/17 23:45 04/27/17 23:44 Al Hydrox/Mg Hydrox/Simethicone (Maalox Max Susp) 15 ml Q4H PRN PO 03/28/17 23:45 04/27/17 23:44 Magnesium Hydroxide (Milk Of Magnesia Susp) 30 ml Q6H PRN PO 03/28/17 23:45 04/27/17 23:44 Polyethylene (Miralax Powder Packet) 17 gm DAILY PRN PO 03/28/17 23:45 04/27/17 23:44 Ondansetron HCl (Zofran Inj) 4 mg Q6H PRN IV 03/28/17 23:45 04/27/17 23:44 Albuterol/ Ipratropium (Duoneb) 3 ml QIDR INH 03/29/17 08:00 04/28/17 07:59 04/08/17 14:33 3 ML Atorvastatin Calcium (Lipitor Tab) 40 mg DAILY PO 03/29/17 09:00 04/28/17 08:59 04/08/17 07:38 40 MG Glucose (Glucose 40% Gel) 15-30 GRAMS 15 GRAMS... UD PRN PO 03/29/17 00:15 04/28/17 00:14 Glucose (Glucose Chew Tab) 4-8 Tablets 4 Tabl... UD PRN PO 03/29/17 00:15 04/28/17 00:14 Dextrose (Dextrose 50% 50ML Syringe) 25-50ML OF 50% DW IV FOR... UD PRN IV 03/29/17 00:15 04/28/17 00:14 04/05/17 06:38 50 ML Glucagon (Glucagon Inj) 1 mg UD PRN SQ 03/29/17 00:15 04/28/17 00:14 Nitroglycerin (Nitrostat Tab) 0.4 mg PRN PRN SL 03/29/17 00:15 04/28/17 00:14 Miscellaneous (Iv Fluids Completed) 1 ea PRN PRN N/A 03/29/17 00:30 03/29/18 00:29 Nicotine (Nicoderm Cq 21MG Patch) 1 patch QAM TD 03/29/17 09:00 04/28/17 08:59 04/02/17 08:38 1 PATCH Miscellaneous (Remove Nicoderm Patch) 1 ea HS N/A 03/29/17 21:00 04/28/17 20:59 04/03/17 21:00 1 EA Budesonide/ Formoterol Fumarate (Symbicort 160/ 4.5 Inh) 2 puffs BID INH 03/30/17 09:00 04/29/17 08:59 04/08/17 07:37 2 PUFFS Tiotropium Covel (Spiriva Handihaler Inhaler) 2 puff QAM INH 03/30/17 09:00 04/29/17 08:59 04/08/17 07:37 2 PUFF Morphine Sulfate (MoRPHine SULFATE INJ) 2 mg Q3H PRN IV 03/30/17 15:15 04/13/17 15:14 04/08/17 14:17 2 MG Oxycodone HCl (Roxicodone Immediate Rel Tab) 5 mg Q4H PRN PO 03/30/17 15:15 04/13/17 15:14 04/01/17 01:55 5 MG Insulin Aspart (novoLOG ASPART) SLIDING SCALE G... ACHS SC 03/31/17 06:45 04/30/17 00:00 04/08/17 12:56 10 UNITS Aspirin (Ecotrin Tab) 81 mg QAM PO 04/04/17 09:00 05/04/17 08:59 04/08/17 07:38 81 MG Prednisone (PredniSONE TAB) 50 mg DAILY PO 04/06/17 08:00 05/06/17 07:59 04/08/17 07:38 50 MG Heparin Sodium (Porcine) (Heparin 10 Unit/ ml 5 ml Flush) 5 ml PRN PRN FLUSH 04/06/17 08:15 05/06/17 08:14 Amlodipine Besylate (Norvasc Tab) 5 mg QAM PO 04/07/17 08:00 05/07/17 07:59 04/08/17 07:39 5 MG Heparin Sodium (Porcine) (Heparin 100 Unit/ml 5ml Flush) 5 ml PRN PRN IV 04/07/17 07:45 05/07/17 07:44 Allopurinol (Zyloprim Tab) 200 mg DAILY PO 04/08/17 08:00 05/08/17 07:59 04/08/17 07:38 200 MG Hydroxyzine HCl (Vistaril Tab) 25 mg HSZ PRN PO 04/07/17 13:30 05/07/17 13:29 Sodium Chloride 1,000 ml @ 100 mls/hr Q10H IV 04/07/17 13:45 05/07/17 13:44 04/08/17 07:36 100 MLS/HR Insulin Glargine (Lantus Solostar Pen) 15 units BID SC 04/08/17 08:00 05/08/17 07:59 04/08/17 08:48 15 UNITS Enoxaparin Sodium (Lovenox Inj) 40 mg QAM SQ 04/09/17 08:00 05/09/17 07:59 Impression (1) Tumor lysis syndrome (2) Chronic kidney disease (3) Small cell lung carcinoma (4) COPD (chronic obstructive pulmonary disease) Recommendations -- Resume radiation therapy w/ Dr. Fernandes -- Continue Allopurinol 200 mg daily -- Monitor PRP, UA, Ca, PO4 daily -- Continue gentle hydration -- G-6-PD level is pending. Uric acid level is trending down. No acute indication for Rasburicase therapy at this time
[2017-04-09] VITALS (12 sets, daily range): BP systolic 113–136; BP diastolic 58–71; PULSE 76–93; TEMP 36.3–36.5; O2SAT 96–99
[2017-04-09] MEDS: MoRPHine SULFATE 2 MG/ML CARP IV PRN ×3 (03:49→21:32)
[2017-04-09] MEDS: SODIUM CHLORIDE 0.9% 1000ML 1,000 ML IV SCH ×2 (03:53→14:19)
[2017-04-09 06:12] LABS: HEMATOCRIT 30.7 % (42-52); HEMOGLOBIN 10.2 g/dL (14.0-18.0); MEAN CELL VOLUME 94.8 fL (80-100); MEAN CORPUSCULAR HEMOGLOBIN 31.5 pg (25-34); MEAN CORPUSCULAR HGB CONC 33.2 g/dl (32-36); RED CELL DISTRIBUTION WIDTH CV 13.3 % (11.5-14.5); RED CELL DISTRIBUTION WIDTH SD 46.1 fL (36.4-46.3)
[2017-04-09 06:23] LABS: MEAN PLATELET VOLUME 9.8 fL (7.4-10.4); PLATELET COUNT 58 K/uL (130-400)
[2017-04-09 06:41] LABS: CALCIUM 7.3 mg/dl (8.5-10.1); CREATININE 1.09 mg/dl (0.60-1.40); URIC ACID 6.7 mg/dl (2.6-7.2)
[2017-04-09] MEDS: ALBUT/IPRATROP 3MG/0.5MG NEB 3 ML VIAL INH SCH ×4 (07:01→19:10)
[2017-04-09 07:48] LABS: EOS % 0.7 %; EOS ABS # 0.04 K/uL (0-0.5); IG# 0.07 K/uL (0.00-0.02); LYMPH % 8.2 %; LYMPH ABS # 0.49 K/uL (1.2-3.4); MONO ABS # 0.06 K/uL (0.11-0.59); NEUT % 88.9 %; NEUT ABS # 5.32 K/uL (1.4-6.5)
[2017-04-09] MEDS: INSULIN ASPART 100 UNITS/ML 3 ML PEN SC SCH ×4 (08:51→21:00)
[2017-04-09] MEDS: INSULIN GLARGINE SOLOSTAR 100 UNITS/ML 3 ML PEN SC SCH ×2 (08:51→21:14)
[2017-04-09] MEDS: AMLODIPINE BESYLATE 5 MG TAB PO SCH (08:52)
[2017-04-09] MEDS: TIOTROPIUM BROMIDE 5 PUFF/90 MCG INH INH SCH (08:52)
[2017-04-09] MEDS: ENOXAPARIN 40 MG/0.4 ML SYR SQ SCH (08:53)
[2017-04-09] MEDS: ASPIRIN 81 MG ECTAB PO SCH (08:53)
[2017-04-09] MEDS: BUDESONIDE/FORMOTEROL FUMARATE 160/4.5 60 PUFFS/INHALER INH SCH ×2 (08:54→21:11)
[2017-04-09] MEDS: ALLOPURINOL 100 MG TAB PO SCH (08:54)
[2017-04-09] MEDS: ATORVASTATIN 40 MG TAB PO SCH (08:54)
[2017-04-09] MEDS: NICOTINE 21 MG/24 HR TDSY TD SCH (08:57)
--- NOTE | 2017-04-09 08:57 | HEME/ONC PROGRESS NOTE ---
DATE: 04/09/2017 DIAGNOSES: 1. Tumor lysis syndrome. 2. Limited stage small cell lung cancer. 3. Acute on chronic obstructive pulmonary disease. 4. Hypertension. 5. Deep venous thrombosis prophylaxis. SUBJECTIVE: I once again saw Mr. Jordan at bedside. His breathing has improved and vital signs are stable. Review of his most recent chemistries revealed normalization of uric acid and the rest of his electrolytes. Creatinine has actually retreated towards normal as well. He reports no overnight issues. We will discuss with the hospitalist about possibly discharging him today in anticipation of him receiving chemotherapy tomorrow. PHYSICAL EXAMINATION: GENERAL: Obese 76-year-old gentleman in no acute distress. VITAL SIGNS: Temperature 36.5, pulse 79, respiratory rate 20, and blood pressure 113/58. SKIN: Without rash or lesion. HEENT: Oral mucosa without erythema or ulceration. NECK: Supple. HEART: Regular rate and rhythm. LUNGS: Clear to auscultation bilaterally. ABDOMEN: Obese, soft, and nontender. EXTREMITIES: 1-2+ peripheral edema bilaterally. NEUROLOGIC: Grossly intact. LABORATORY DATA: Sodium 136, potassium 5, chloride 102, bicarbonate 31, BUN 62, and creatinine 1.09. Uric acid 6.7. IMPRESSION: 1. Tumor lysis syndrome. 2. Acute on chronic obstructive pulmonary disease. 3. Limited stage small cell lung cancer. 4. Acute renal injury. 5. Thrombocytopenia attributable to a carboplatin toxicity. PLAN: Mr. Jordan is doing much better. His electrolytes have stabilized as well as renal function. Dr. Ambriz would like to administer his dose of irinotecan and preferably as an outpatient if he is medically stable, to go today. I have nothing further to add at this point. Thrombocytopenia, I suspect, is secondary to carboplatin and should recover spontaneously. Thank you again for assisting us in the care of this very pleasant gentleman. He will continue radiation therapy as scheduled.
[2017-04-09] MEDS ORDERED: LORAZEPAM 2 MG/ML 1 ML VIAL IV SCH (14:00)
--- NOTE | 2017-04-09 16:20 | Nephrology Progress Note ---
Nephrology Progress Note Date of Service Apr 09, 2017. Chief Complaint Tumor lysis syndrome Subjective Mr. Jordan was seen & examined in his hospital room this morning. He had his second radiation treatment yesterday. There were no complications. He is scheduled to resume chemotherapy this afternoon. He voices no new medical concerns. Review of Systems Constitutional: No fever Cardiovascular: No chest pain Respiratory: No dyspnea at rest Abdomen: No pain, No nausea, No vomiting Extremities: No leg edema A complete review of systems was performed. Pertinent positives are noted above. All other systems are negative. Vital Signs Last 8 Hrs Date Time Temp Pulse Resp B/P (MAP) Pulse Ox O2 Delivery O2 Flow Rate FiO2 04/09/17 11:51 76 18 132/66 (88) 97 Nasal Cannula 2.0 04/09/17 11:14 86 98 30 04/09/17 11:13 86 20 98 BiPAP/CPAP 30 04/09/17 08:20 36.3 81 20 123/61 (81) 96 Nasal Cannula 3.0 I & O 24-Hour Column 04/10/17 07:59 Intake Total 1490 ml Output Total 625 ml Balance 865 ml Last Recorded Weight Weight (Kilograms): 130.500 Physical Exam General Appearance: no apparent distress Head: normocephalic, atraumatic Eyes: PERRL, EOMI Neck: no adenopathy Respiratory/Chest: lungs clear, no respiratory distress Cardiovascular: regular rate, rhythm Abdomen/GI: normal bowel sounds, non tender, soft Extremities/Musculoskelatal: no calf tenderness, no pedal edema Neurologic/Psych: no motor/sensory deficits, oriented x 3 Family History Negative for CKD / ESRD Social History Occupation: retired Retired. Current smoker Laboratory Results Past 24 Hours 04/09/17 05:58 Red Blood Count 3.24, Mean Corpuscular Volume 94.8, Mean Corpuscular Hemoglobin 31.5, Mean Corpuscular Hemoglobin Concent 33.2, Mean Platelet Volume 9.8, Neutrophils (%) (Auto) 88.9, Lymphocytes (%) (Auto) 8.2, Monocytes (%) (Auto) 1.0, Eosinophils (%) (Auto) 0.7, Basophils (%) (Auto) 0.0, Neutrophils # (Auto) 5.32, Lymphocytes # (Auto) 0.49, Monocytes # (Auto) 0.06, Eosinophils # (Auto) 0.04, Basophils # (Auto) 0.00 04/09/17 05:58 Test 04/08/17 16:47 04/08/17 20:43 04/09/17 05:58 04/09/17 07:22 Bedside Glucose 138 mg/dl (70-99) 142 mg/dl (70-99) 85 mg/dl (70-99) White Blood Count 6.00 K/uL (4.8-10.8) Red Blood Count 3.24 M/uL (4.7-6.1) Hemoglobin 10.2 g/dL (14.0-18.0) Hematocrit 30.7 % (42-52) Mean Corpuscular Volume 94.8 fL (80-100) Mean Corpuscular Hemoglobin 31.5 pg (25-34) Mean Corpuscular Hemoglobin Concent 33.2 g/dl (32-36) Platelet Count 58 K/uL (130-400) Mean Platelet Volume 9.8 fL (7.4-10.4) Neutrophils (%) (Auto) 88.9 % Lymphocytes (%) (Auto) 8.2 % Monocytes (%) (Auto) 1.0 % Eosinophils (%) (Auto) 0.7 % Basophils (%) (Auto) 0.0 % Neutrophils # (Auto) 5.32 K/uL (1.4-6.5) Lymphocytes # (Auto) 0.49 K/uL (1.2-3.4) Monocytes # (Auto) 0.06 K/uL (0.11-0.59) Eosinophils # (Auto) 0.04 K/uL (0-0.5) Basophils # (Auto) 0.00 K/uL (0-0.2) RDW Standard Deviation 46.1 fL (36.4-46.3) RDW Coefficient of Variation 13.3 % (11.5-14.5) Immature Granulocyte % (Auto) 1.2 % Immature Granulocyte # (Auto) 0.07 K/uL (0.00-0.02) Nucleated RBC Absolute Count (auto) 0.00 K/uL (0-0) Nucleated Red Blood Cells % 0.0 % Anion Gap 3.0 mmol/L (3-11) Est Creatinine Clear Calc Drug Dose 78.3 ml/min Estimated GFR () 76.5 Estimated GFR (Non- 66.0 BUN/Creatinine Ratio 56.4 (10-20) Uric Acid 6.7 mg/dl (2.6-7.2) Calcium Level 7.3 mg/dl (8.5-10.1) Test 04/09/17 11:18 Bedside Glucose 125 mg/dl (70-99) Allergies Coded Allergies: No Known Allergies (Verified , 03/28/17) Medications Current Inpatient Medications Medications (Trade) Dose Ordered Sig/Michel Route Start Time Stop Time Status Last Admin Dose Admin Acetaminophen (Tylenol Tab) 650 mg Q4H PRN PO 03/28/17 23:45 04/27/17 23:44 Al Hydrox/Mg Hydrox/Simethicone (Maalox Max Susp) 15 ml Q4H PRN PO 03/28/17 23:45 04/27/17 23:44 Magnesium Hydroxide (Milk Of Magnesia Susp) 30 ml Q6H PRN PO 03/28/17 23:45 04/27/17 23:44 Polyethylene (Miralax Powder Packet) 17 gm DAILY PRN PO 03/28/17 23:45 04/27/17 23:44 Ondansetron HCl (Zofran Inj) 4 mg Q6H PRN IV 03/28/17 23:45 04/27/17 23:44 Albuterol/ Ipratropium (Duoneb) 3 ml QIDR INH 03/29/17 08:00 04/28/17 07:59 04/09/17 11:13 3 ML Atorvastatin Calcium (Lipitor Tab) 40 mg DAILY PO 03/29/17 09:00 04/28/17 08:59 04/09/17 08:54 40 MG Glucose (Glucose 40% Gel) 15-30 GRAMS 15 GRAMS... UD PRN PO 03/29/17 00:15 04/28/17 00:14 Glucose (Glucose Chew Tab) 4-8 Tablets 4 Tabl... UD PRN PO 03/29/17 00:15 04/28/17 00:14 Dextrose (Dextrose 50% 50ML Syringe) 25-50ML OF 50% DW IV FOR... UD PRN IV 03/29/17 00:15 04/28/17 00:14 04/05/17 06:38 50 ML Glucagon (Glucagon Inj) 1 mg UD PRN SQ 03/29/17 00:15 04/28/17 00:14 Nitroglycerin (Nitrostat Tab) 0.4 mg PRN PRN SL 03/29/17 00:15 04/28/17 00:14 Miscellaneous (Iv Fluids Completed) 1 ea PRN PRN N/A 03/29/17 00:30 03/29/18 00:29 Nicotine (Nicoderm Cq 21MG Patch) 1 patch QAM TD 03/29/17 09:00 04/28/17 08:59 04/02/17 08:38 1 PATCH Miscellaneous (Remove Nicoderm Patch) 1 ea HS N/A 03/29/17 21:00 04/28/17 20:59 04/03/17 21:00 1 EA Budesonide/ Formoterol Fumarate (Symbicort 160/ 4.5 Inh) 2 puffs BID INH 03/30/17 09:00 04/29/17 08:59 04/09/17 08:54 2 PUFFS Tiotropium [place] (Spiriva Handihaler Inhaler) 2 puff QAM INH 03/30/17 09:00 04/29/17 08:59 04/09/17 08:52 2 PUFF Morphine Sulfate (MoRPHine SULFATE INJ) 2 mg Q3H PRN IV 03/30/17 15:15 04/13/17 15:14 04/09/17 14:15 2 MG Oxycodone HCl (Roxicodone Immediate Rel Tab) 5 mg Q4H PRN PO 03/30/17 15:15 04/13/17 15:14 04/01/17 01:55 5 MG Insulin Aspart (novoLOG ASPART) SLIDING SCALE G... ACHS SC 03/31/17 06:45 04/30/17 00:00 04/09/17 12:27 16 UNITS Aspirin (Ecotrin Tab) 81 mg QAM PO 04/04/17 09:00 05/04/17 08:59 04/09/17 08:53 81 MG Prednisone (PredniSONE TAB) 50 mg DAILY PO 04/06/17 08:00 05/06/17 07:59 04/09/17 08:52 50 MG Heparin Sodium (Porcine) (Heparin 10 Unit/ ml 5 ml Flush) 5 ml PRN PRN FLUSH 04/06/17 08:15 05/06/17 08:14 Amlodipine Besylate (Norvasc Tab) 5 mg QAM PO 04/07/17 08:00 05/07/17 07:59 04/09/17 08:52 5 MG Heparin Sodium (Porcine) (Heparin 100 Unit/ml 5ml Flush) 5 ml PRN PRN IV 04/07/17 07:45 05/07/17 07:44 Allopurinol (Zyloprim Tab) 200 mg DAILY PO 04/08/17 08:00 05/08/17 07:59 04/09/17 08:54 200 MG Hydroxyzine HCl (Vistaril Tab) 25 mg HSZ PRN PO 04/07/17 13:30 05/07/17 13:29 Sodium Chloride 1,000 ml @ 100 mls/hr Q10H IV 04/07/17 13:45 05/07/17 13:44 04/09/17 14:19 100 MLS/HR Insulin Glargine (Lantus Solostar Pen) 15 units BID SC 04/08/17 08:00 05/08/17 07:59 04/09/17 08:51 15 UNITS Enoxaparin Sodium (Lovenox Inj) 40 mg QAM SQ 04/09/17 08:00 05/09/17 07:59 04/09/17 08:53 40 MG Lorazepam (Ativan Inj) 0.5 mg TODAY@1400 IV 04/09/17 14:00 04/09/17 18:00 04/09/17 14:14 0.5 MG Impression (1) Tumor lysis syndrome (2) Chronic kidney disease (3) Small cell lung carcinoma (4) COPD (chronic obstructive pulmonary disease) Recommendations -- Continue radiation therapy and chemotherapy as per Dr. Fernandes & Dr. Hutchinson -- Continue Allopurinol 200 mg daily -- Monitor PRP, UA, Ca, PO4 daily -- Kidney function is back to baseline. Will stop IVF. -- G-6-PD level is pending. Uric acid level is now < 7.0. No acute indication for Rasburicase therapy at this time
--- NOTE | 2017-04-09 17:56 | Family Medicine Progress Note ---
Progress Note Date of Service Apr 09, 2017. Subjective Pt reports no events overnight, eating well, voiding well. Using BiPap/CPAP overnight, O2 during the day, denies respiratory distress or pain or dysuria. Slept well. Denies bruising or bleeding symptoms, cramping or chest pain. Spoke at length with pt's daughter later in the day - answered questions regarding good nutrition for patient, she is wondering about his hands swelling and if that means metastasis. She feels better that pt seems to be more amenable to treatment now. ROS See HPI for pertinent positives and negatives. Medications Current Inpatient Medications Medications (Trade) Dose Ordered Sig/Michel Route Start Time Stop Time Status Last Admin Dose Admin Acetaminophen (Tylenol Tab) 650 mg Q4H PRN PO 03/28/17 23:45 04/27/17 23:44 Al Hydrox/Mg Hydrox/Simethicone (Maalox Max Susp) 15 ml Q4H PRN PO 03/28/17 23:45 04/27/17 23:44 Magnesium Hydroxide (Milk Of Magnesia Susp) 30 ml Q6H PRN PO 03/28/17 23:45 04/27/17 23:44 Polyethylene (Miralax Powder Packet) 17 gm DAILY PRN PO 03/28/17 23:45 04/27/17 23:44 Ondansetron HCl (Zofran Inj) 4 mg Q6H PRN IV 03/28/17 23:45 04/27/17 23:44 Albuterol/ Ipratropium (Duoneb) 3 ml QIDR INH 03/29/17 08:00 04/28/17 07:59 04/09/17 11:13 3 ML Atorvastatin Calcium (Lipitor Tab) 40 mg DAILY PO 03/29/17 09:00 04/28/17 08:59 04/09/17 08:54 40 MG Glucose (Glucose 40% Gel) 15-30 GRAMS 15 GRAMS... UD PRN PO 03/29/17 00:15 04/28/17 00:14 Glucose (Glucose Chew Tab) 4-8 Tablets 4 Tabl... UD PRN PO 03/29/17 00:15 04/28/17 00:14 Dextrose (Dextrose 50% 50ML Syringe) 25-50ML OF 50% DW IV FOR... UD PRN IV 03/29/17 00:15 04/28/17 00:14 04/05/17 06:38 50 ML Glucagon (Glucagon Inj) 1 mg UD PRN SQ 03/29/17 00:15 04/28/17 00:14 Nitroglycerin (Nitrostat Tab) 0.4 mg PRN PRN SL 03/29/17 00:15 04/28/17 00:14 Miscellaneous (Iv Fluids Completed) 1 ea PRN PRN N/A 03/29/17 00:30 03/29/18 00:29 Nicotine (Nicoderm Cq 21MG Patch) 1 patch QAM TD 03/29/17 09:00 04/28/17 08:59 04/02/17 08:38 1 PATCH Miscellaneous (Remove Nicoderm Patch) 1 ea HS N/A 03/29/17 21:00 04/28/17 20:59 04/03/17 21:00 1 EA Budesonide/ Formoterol Fumarate (Symbicort 160/ 4.5 Inh) 2 puffs BID INH 03/30/17 09:00 04/29/17 08:59 04/09/17 08:54 2 PUFFS Tiotropium [place] (Spiriva Handihaler Inhaler) 2 puff QAM INH 03/30/17 09:00 04/29/17 08:59 04/09/17 08:52 2 PUFF Morphine Sulfate (MoRPHine SULFATE INJ) 2 mg Q3H PRN IV 03/30/17 15:15 04/13/17 15:14 04/09/17 14:15 2 MG Oxycodone HCl (Roxicodone Immediate Rel Tab) 5 mg Q4H PRN PO 03/30/17 15:15 04/13/17 15:14 04/01/17 01:55 5 MG Insulin Aspart (novoLOG ASPART) SLIDING SCALE G... ACHS SC 03/31/17 06:45 04/30/17 00:00 04/09/17 12:27 16 UNITS Aspirin (Ecotrin Tab) 81 mg QAM PO 04/04/17 09:00 05/04/17 08:59 04/09/17 08:53 81 MG Prednisone (PredniSONE TAB) 50 mg DAILY PO 04/06/17 08:00 05/06/17 07:59 04/09/17 08:52 50 MG Heparin Sodium (Porcine) (Heparin 10 Unit/ ml 5 ml Flush) 5 ml PRN PRN FLUSH 04/06/17 08:15 05/06/17 08:14 04/09/17 16:22 5 ML Amlodipine Besylate (Norvasc Tab) 5 mg QAM PO 04/07/17 08:00 05/07/17 07:59 04/09/17 08:52 5 MG Heparin Sodium (Porcine) (Heparin 100 Unit/ml 5ml Flush) 5 ml PRN PRN IV 04/07/17 07:45 05/07/17 07:44 Allopurinol (Zyloprim Tab) 200 mg DAILY PO 04/08/17 08:00 05/08/17 07:59 04/09/17 08:54 200 MG Hydroxyzine HCl (Vistaril Tab) 25 mg HSZ PRN PO 04/07/17 13:30 05/07/17 13:29 Insulin Glargine (Lantus Solostar Pen) 15 units BID SC 04/08/17 08:00 05/08/17 07:59 04/09/17 08:51 15 UNITS Enoxaparin Sodium (Lovenox Inj) 40 mg QAM SQ 04/09/17 08:00 05/09/17 07:59 04/09/17 08:53 40 MG Lorazepam (Ativan Inj) 0.5 mg TODAY@1400 IV 04/09/17 14:00 04/09/17 18:00 04/09/17 14:14 0.5 MG Objective Vital Signs Date Time Temp Pulse Resp B/P (MAP) Pulse Ox O2 Delivery O2 Flow Rate FiO2 04/09/17 16:00 Nasal Cannula 3.0 04/09/17 11:51 76 18 132/66 (88) 97 Nasal Cannula 2.0 04/09/17 11:14 86 98 30 04/09/17 11:13 86 20 98 BiPAP/CPAP 30 04/09/17 08:20 36.3 81 20 123/61 (81) 96 Nasal Cannula 3.0 04/09/17 08:00 96 Nasal Cannula 3.0 04/09/17 07:01 93 18 99 BiPAP/CPAP 30 04/09/17 04:00 36.5 79 20 113/58 (76) 97 BiPAP 04/09/17 00:00 BiPAP 04/08/17 23:32 36.6 93 20 150/66 (94) 100 BiPAP 04/08/17 22:07 89 95 30 04/08/17 19:11 36.5 93 22 141/69 (93) 98 Nasal Cannula 3.0 04/08/17 18:56 85 18 97 Nasal Cannula 3.0 Physical Exam Notes: GENERAL: Awake, alert, in no distress. Nasal cannula in place. Obese. HENT: Normocephalic, atraumatic. EYES: Normal conjunctiva. Sclera non-icteric. RESPIRATORY: Decreased breath sounds bilaterally. No crackles or rhonchi. CARDIAC: Regular rate, normal rhythm. Extremities well perfused. Pulses equal. ABDOMEN: Soft, non-distended. No tenderness to palpation. No rebound or guarding. No masses. Port in place over left anterior chest. EXTREMITIES: Calves are equal size bilaterally and non-tender. Moderate edema in hands. Severe dryness on LE b/l. NEURO: No motor deficits noted. SKIN: No rash or jaundice noted. Innumerable christelle derm/AK's. Laboratory Results 04/09/17 05:58 Red Blood Count 3.24, Mean Corpuscular Volume 94.8, Mean Corpuscular Hemoglobin 31.5, Mean Corpuscular Hemoglobin Concent 33.2, Mean Platelet Volume 9.8, Neutrophils (%) (Auto) 88.9, Lymphocytes (%) (Auto) 8.2, Monocytes (%) (Auto) 1.0, Eosinophils (%) (Auto) 0.7, Basophils (%) (Auto) 0.0, Neutrophils # (Auto) 5.32, Lymphocytes # (Auto) 0.49, Monocytes # (Auto) 0.06, Eosinophils # (Auto) 0.04, Basophils # (Auto) 0.00 04/09/17 05:58 Test 04/09/17 05:58 04/09/17 16:55 White Blood Count 6.00 K/uL (4.8-10.8) Red Blood Count 3.24 M/uL (4.7-6.1) Hemoglobin 10.2 g/dL (14.0-18.0) Hematocrit 30.7 % (42-52) Mean Corpuscular Volume 94.8 fL (80-100) Mean Corpuscular Hemoglobin 31.5 pg (25-34) Mean Corpuscular Hemoglobin Concent 33.2 g/dl (32-36) Platelet Count 58 K/uL (130-400) Mean Platelet Volume 9.8 fL (7.4-10.4) Neutrophils (%) (Auto) 88.9 % Lymphocytes (%) (Auto) 8.2 % Monocytes (%) (Auto) 1.0 % Eosinophils (%) (Auto) 0.7 % Basophils (%) (Auto) 0.0 % Neutrophils # (Auto) 5.32 K/uL (1.4-6.5) Lymphocytes # (Auto) 0.49 K/uL (1.2-3.4) Monocytes # (Auto) 0.06 K/uL (0.11-0.59) Eosinophils # (Auto) 0.04 K/uL (0-0.5) Basophils # (Auto) 0.00 K/uL (0-0.2) RDW Standard Deviation 46.1 fL (36.4-46.3) RDW Coefficient of Variation 13.3 % (11.5-14.5) Immature Granulocyte % (Auto) 1.2 % Immature Granulocyte # (Auto) 0.07 K/uL (0.00-0.02) Nucleated RBC Absolute Count (auto) 0.00 K/uL (0-0) Nucleated Red Blood Cells % 0.0 % Anion Gap 3.0 mmol/L (3-11) Est Creatinine Clear Calc Drug Dose 78.3 ml/min Estimated GFR () 76.5 Estimated GFR (Non- 66.0 BUN/Creatinine Ratio 56.4 (10-20) Uric Acid 6.7 mg/dl (2.6-7.2) Calcium Level 7.3 mg/dl (8.5-10.1) Bedside Glucose 68 mg/dl (70-99) Assessment and Plan 76 y/o M PMH hypertension, CKD, AAA, CAD, uncontrolled COPD, tobacco abuse, T2DM. Here for dyspnea found to have lung mass on CT with subsequent path result of small cell lung ca. Of note, pt has expressed a strong aversion to being in the hospital, but has been mostly amenable to all interventions and diagnostics thus far. Radiation started but patient had difficulty completing on day 2. Started chemo on 04/03 after port placement. Developed tumor lysis syndrome, stable, as below. Developed hyperkalemia likely 2/2 tumor lysis syndrome - given 30g kayexalate stat to lower potassium; hyperkalemia resolved - EKG normal - Uric acidemia resolved. Following daily, as radiation and chemo have been restarted, need to observe how lysis of tumor cells develops although expect this to decrease and improve. - Continue Diuresing with gentle IVF, Allopurinol 200 mg daily. PRP, UA, Ca, PO4 daily. G-6-PD level -- pending If uric acid increases further will order Rasburicase. Pharmacy indicates 24 hour processing time to obtain medication if needed Small cell lung cancer - found on CT, biopsy confirms - for chemo weekly with Dr. Ambriz - rad/onc consult and radiation started, scheduled 5x/wk - Needs to continue Bipap on discharge; setting up - will need 2 step on day of discharge Acute on chronic SOB/COPD/ANGEL - strongly suspect chronic respiratory failure related to COPD -- requiring O2 24/7 and bipap at any time of sleep to be safe - cannot safely discharge to home without noninvasive positive pressure ventilation. COPD appears severe enough that interuption in this care will likely lead to imminent decline or even possibly . - will need 2 step prior to discharge - PO Steroid taper on dc. Currently taking Pred 50 PO daily. - due to chronic resp failure consequent to COPD, pt now requires a non- invasive home ventilator. Bi-level therapy with and w/o a rate would be ineffective as patient requires a volume targeted mode. Ventilation is required to decrease the work of breathing and improve pulmonary status. Mode/Settings: Max pressure: 12 PS Max: 5 FiO2: 30% Thrombocytopenia - changed from Heparin to Lovenox 04/09 - asymptomatic - following CBC w/ diff Hypocalcemia - likely 2/2 tumor lysis syndrome - asymptomatic - no indication for repletion at this time unless develops symptoms like tetany or cardiac arrhythmia. - Mg is still slightly elev at 2.7 (1.8-2.4) 04/09 - will recheck phos and if normal tomorrow AM CKD 3B - Improved slightly today, appearing prerenal - ACEi and HCTZ have been stopped - gentle IVF @75ml/hr running - suspect cor pulmonale / pulmonary HTN is what led to him appearing swollen despite also appearing intravascular volume depleted - [employer] 1.09 today, better than it's ever been Hyperglycemia, T2DM - improving. Continue to follow on insulins with steroids - titrating, decreased lantus BID dose to 12 units since slightly lower sugars in morning and sometimes evening. Hypertension - DC ZEKE/thiazide, replaced with 5mg Norvasc daily. - controlled Hyperlipidemia - continue atorvastatin 40mg daily CAD - ASA 81mg tab daily Tobacco abuse - nicotine 21 mg patch TD QAM. Insomnia - added Vestaril, tolerating. Can continue on DC DVT ppx heparin SQ 5000units Code: full Dispo: Tele. Anticipate discharge once kidneys stable after chemo/radiation -- possibly over this coming weekend. Pt lives at home alone, daughter and brother are great sources of support and live close by. Resident Physician Supervision Note: I was present with Dr. Sparrow during the history and exam. I discussed the case with the resident and agree with the findings and plan as documented in the note. Any exceptions or clarifications are listed here: RT today and scheduled for CT tomorrow. Will need to monitor BMP and uric acid; continue allopurinol; adjust fluid based on clinical examination tomorrow. Documented By: Rick Humphries Continued [facility] stay due to: other Discharge planning: home Resident Tracking Resident Involvement: Resident Care Provided Care Provided: Adult Hospital Medicine
[2017-04-09] MEDS: hydrOXYzine HCL 25 MG TAB PO PRN (21:28)
[2017-04-10] VITALS (14 sets, daily range): BP systolic 114–158; BP diastolic 64–71; PULSE 68–96; TEMP 36.5–36.6; O2SAT 93–100
[2017-04-10] MEDS: MoRPHine SULFATE 2 MG/ML CARP IV PRN ×3 (02:11→23:59)
[2017-04-10 06:13] LABS: HEMATOCRIT 32.8 % (42-52); HEMOGLOBIN 10.6 g/dL (14.0-18.0); MEAN CELL VOLUME 95.9 fL (80-100); MEAN CORPUSCULAR HGB CONC 32.3 g/dl (32-36); RED CELL DISTRIBUTION WIDTH CV 13.1 % (11.5-14.5); RED CELL DISTRIBUTION WIDTH SD 45.9 fL (36.4-46.3); WHITE BLOOD COUNT 2.89 K/uL (4.8-10.8)
[2017-04-10 06:20] LABS: MEAN PLATELET VOLUME 10.6 fL (7.4-10.4); PLATELET COUNT 50 K/uL (130-400)
[2017-04-10 06:39] LABS: CALCIUM 7.5 mg/dl (8.5-10.1); CREATININE 1.11 mg/dl (0.60-1.40); PHOSPHORUS 3.3 mg/dl (2.5-4.9); POTASSIUM 5.2 mmol/L (3.5-5.1); URIC ACID 5.4 mg/dl (2.6-7.2)
[2017-04-10 06:46] LABS: EOS % 0.7 %; EOS ABS # 0.02 K/uL (0-0.5); IG# 0.04 K/uL (0.00-0.02); LYMPH % 11.4 %; LYMPH ABS # 0.33 K/uL (1.2-3.4); MONO % 2.4 %; MONO ABS # 0.07 K/uL (0.11-0.59); NEUT % 84.1 %; NEUT ABS # 2.43 K/uL (1.4-6.5)
[2017-04-10] MEDS: ALBUT/IPRATROP 3MG/0.5MG NEB 3 ML VIAL INH SCH ×4 (07:15→19:07)
[2017-04-10] MEDS: NICOTINE 21 MG/24 HR TDSY TD SCH (07:50)
[2017-04-10] MEDS ORDERED: LORAZEPAM 2 MG/ML 1 ML VIAL IV PRN (08:00)
[2017-04-10] MEDS ORDERED: LORAZEPAM 2 MG/ML 1 ML VIAL ONE (08:10)
[2017-04-10] MEDS: ASPIRIN 81 MG ECTAB PO SCH (08:26)
[2017-04-10] MEDS: ALLOPURINOL 100 MG TAB PO SCH (08:26)
[2017-04-10] MEDS: ATORVASTATIN 40 MG TAB PO SCH (08:26)
[2017-04-10] MEDS: BUDESONIDE/FORMOTEROL FUMARATE 160/4.5 60 PUFFS/INHALER INH SCH ×2 (08:26→19:47)
[2017-04-10] MEDS: AMLODIPINE BESYLATE 5 MG TAB PO SCH (08:26)
[2017-04-10] MEDS: SODIUM CHLORIDE 0.9% 1000ML 1,000 ML IV SCH ×2 (08:27→19:46)
[2017-04-10] MEDS: TIOTROPIUM BROMIDE 5 PUFF/90 MCG INH INH SCH (08:27)
[2017-04-10] MEDS: ENOXAPARIN 40 MG/0.4 ML SYR SQ SCH (08:27)
[2017-04-10] MEDS ORDERED: LORAZEPAM INJ 0.5 MG in SYRINGE 0.75 ML IV PRN (08:30)
[2017-04-10] MEDS: INSULIN ASPART 100 UNITS/ML 3 ML PEN SC SCH ×4 (08:36→20:45)
[2017-04-10] MEDS: INSULIN GLARGINE SOLOSTAR 100 UNITS/ML 3 ML PEN SC SCH ×2 (08:36→20:44)
--- NOTE | 2017-04-10 09:53 | HEME/ONC PROGRESS NOTE ---
DATE: 04/10/2017 DIAGNOSES: 1. Tumor lysis syndrome. 2. Limited stage small cell lung cancer. 3. Acute on chronic obstructive pulmonary disease. 4. Hypertension. SUBJECTIVE: Giacomo was seen again at bedside, resting comfortably this morning. Again, his serum chemistries have normalized and clinically he is doing well. I just spoke to Dr. Bates in the phone and he wants to proceed with treatment inpatient and then discharge him shortly thereafter if the hospitalist agrees. Nursing reports no overnight issues. PHYSICAL EXAMINATION: GENERAL: Very pleasant 76-year-old gentleman, in no acute distress. VITAL SIGNS: Temperature 36.5, pulse 82, respirations 20, and blood pressure 133/64. SKIN: Without rash or lesion. HEENT: Oral mucosa without erythema or ulceration. NECK: Supple. HEART: Regular rate and rhythm. No clicks, rubs or murmurs. LUNGS: Clear to auscultation bilaterally. ABDOMEN: Obese, soft, nontender, and nondistended. EXTREMITIES: 1+ peripheral edema bilaterally. NEUROLOGIC: Grossly intact. LABORATORY DATA: WBC count 2990, hemoglobin 10.6, and platelet count is 50,000. Sodium 135, potassium 5.2, chloride 102, carbon dioxide 28, BUN 52, and creatinine 1.11. Uric acid 5.4. Calcium 7.5. IMPRESSION: 1. Tumor lysis syndrome. 2. Acute on chronic obstructive pulmonary disease. 3. Limited stage small cell lung cancer. 4. Thrombocytopenia attributable to carboplatin toxicity. PLAN: Mr. Jordan is doing much better from a laboratory standpoint and clinically. For reasons unclear, he was not discharged yesterday and is due to receive chemotherapy today. His platelet count remains 50,000 with a mild leukopenia. He is scheduled to receive a modified dose irinotecan today. Spoke to Dr. Bates and we collectively decided to delay treatment. For the most part, the kidney function has improved dramatically and his electrolytes have stabilized. From med. Onc standpoint patient may be D/c'd and will make arrangement for OP follow up. [facility]
--- NOTE | 2017-04-10 11:52 | Nephrology Progress Note ---
Nephrology Progress Note Date of Service Apr 10, 2017. Chief Complaint Tumor lysis syndrome Subjective Mr. Jordan was seen & examined in his hospital room this morning. He had just returned from radiation therapy and indicated that he will have chemotherapy later today. He voiced no new medical concerns. Review of Systems Constitutional: No fever Cardiovascular: No chest pain Respiratory: No dyspnea at rest Abdomen: No pain, No nausea, No vomiting Extremities: No leg edema A complete review of systems was performed. Pertinent positives are noted above. All other systems are negative. Vital Signs Last 8 Hrs Date Time Temp Pulse Resp B/P (MAP) Pulse Ox O2 Delivery O2 Flow Rate FiO2 04/10/17 11:12 90 20 98 Nasal Cannula 2.0 04/10/17 10:48 96 Nasal Cannula 2.0 04/10/17 08:05 36.5 88 14 157/71 (99) 96 Nasal Cannula 2.0 04/10/17 08:00 96 Nasal Cannula 2.0 04/10/17 07:18 84 20 99 Nasal Cannula 3.0 04/10/17 04:20 36.5 82 20 133/64 (87) 98 Nasal Cannula 4.0 Last Recorded Weight Weight (Kilograms): 136.800 Physical Exam General Appearance: no apparent distress Head: normocephalic, atraumatic Eyes: PERRL, EOMI Neck: no adenopathy Respiratory/Chest: lungs clear Cardiovascular: regular rate, rhythm Abdomen/GI: normal bowel sounds, non tender, soft Extremities/Musculoskelatal: no calf tenderness, no pedal edema Neurologic/Psych: alert, oriented x 3 Family History Negative for CKD / ESRD Social History Occupation: retired Retired. Current smoker Laboratory Results Past 24 Hours 04/10/17 05:36 Red Blood Count 3.42, Mean Corpuscular Volume 95.9, Mean Corpuscular Hemoglobin 31.0, Mean Corpuscular Hemoglobin Concent 32.3, Mean Platelet Volume 10.6, Neutrophils (%) (Auto) 84.1, Lymphocytes (%) (Auto) 11.4, Monocytes (%) (Auto) 2.4, Eosinophils (%) (Auto) 0.7, Basophils (%) (Auto) 0.0, Neutrophils # (Auto) 2.43, Lymphocytes # (Auto) 0.33, Monocytes # (Auto) 0.07, Eosinophils # (Auto) 0.02, Basophils # (Auto) 0.00 04/10/17 05:36 Test 04/09/17 16:55 04/09/17 17:18 04/09/17 17:50 04/09/17 20:19 Bedside Glucose 68 mg/dl (70-99) 58 mg/dl (70-99) 99 mg/dl (70-99) 109 mg/dl (70-99) Test 04/10/17 05:36 04/10/17 08:02 White Blood Count 2.89 K/uL (4.8-10.8) Red Blood Count 3.42 M/uL (4.7-6.1) Hemoglobin 10.6 g/dL (14.0-18.0) Hematocrit 32.8 % (42-52) Mean Corpuscular Volume 95.9 fL (80-100) Mean Corpuscular Hemoglobin 31.0 pg (25-34) Mean Corpuscular Hemoglobin Concent 32.3 g/dl (32-36) Platelet Count 50 K/uL (130-400) Mean Platelet Volume 10.6 fL (7.4-10.4) Neutrophils (%) (Auto) 84.1 % Lymphocytes (%) (Auto) 11.4 % Monocytes (%) (Auto) 2.4 % Eosinophils (%) (Auto) 0.7 % Basophils (%) (Auto) 0.0 % Neutrophils # (Auto) 2.43 K/uL (1.4-6.5) Lymphocytes # (Auto) 0.33 K/uL (1.2-3.4) Monocytes # (Auto) 0.07 K/uL (0.11-0.59) Eosinophils # (Auto) 0.02 K/uL (0-0.5) Basophils # (Auto) 0.00 K/uL (0-0.2) RDW Standard Deviation 45.9 fL (36.4-46.3) RDW Coefficient of Variation 13.1 % (11.5-14.5) Immature Granulocyte % (Auto) 1.4 % Immature Granulocyte # (Auto) 0.04 K/uL (0.00-0.02) Anion Gap 5.0 mmol/L (3-11) Est Creatinine Clear Calc Drug Dose 75.8 ml/min Estimated GFR () 74.9 Estimated GFR (Non- 64.6 BUN/Creatinine Ratio 47.0 (10-20) Uric Acid 5.4 mg/dl (2.6-7.2) Calcium Level 7.5 mg/dl (8.5-10.1) Phosphorus Level 3.3 mg/dl (2.5-4.9) Bedside Glucose 130 mg/dl (70-99) Allergies Coded Allergies: No Known Allergies (Verified , 03/28/17) Medications Current Inpatient Medications Medications (Trade) Dose Ordered Sig/Michel Route Start Time Stop Time Status Last Admin Dose Admin Acetaminophen (Tylenol Tab) 650 mg Q4H PRN PO 03/28/17 23:45 04/27/17 23:44 Al Hydrox/Mg Hydrox/Simethicone (Maalox Max Susp) 15 ml Q4H PRN PO 03/28/17 23:45 04/27/17 23:44 Magnesium Hydroxide (Milk Of Magnesia Susp) 30 ml Q6H PRN PO 03/28/17 23:45 04/27/17 23:44 Polyethylene (Miralax Powder Packet) 17 gm DAILY PRN PO 03/28/17 23:45 04/27/17 23:44 Ondansetron HCl (Zofran Inj) 4 mg Q6H PRN IV 03/28/17 23:45 04/27/17 23:44 Albuterol/ Ipratropium (Duoneb) 3 ml QIDR INH 03/29/17 08:00 04/28/17 07:59 04/10/17 11:11 3 ML Atorvastatin Calcium (Lipitor Tab) 40 mg DAILY PO 03/29/17 09:00 04/28/17 08:59 04/10/17 08:26 40 MG Glucose (Glucose 40% Gel) 15-30 GRAMS 15 GRAMS... UD PRN PO 03/29/17 00:15 04/28/17 00:14 Glucose (Glucose Chew Tab) 4-8 Tablets 4 Tabl... UD PRN PO 03/29/17 00:15 04/28/17 00:14 Dextrose (Dextrose 50% 50ML Syringe) 25-50ML OF 50% DW IV FOR... UD PRN IV 03/29/17 00:15 04/28/17 00:14 04/05/17 06:38 50 ML Glucagon (Glucagon Inj) 1 mg UD PRN SQ 2/18/18 00:15 04/28/17 00:14 Nitroglycerin (Nitrostat Tab) 0.4 mg PRN PRN SL 03/29/17 00:15 04/28/17 00:14 Miscellaneous (Iv Fluids Completed) 1 ea PRN PRN N/A 03/29/17 00:30 03/29/18 00:29 Nicotine (Nicoderm Cq 21MG Patch) 1 patch QAM TD 03/29/17 09:00 04/28/17 08:59 04/02/17 08:38 1 PATCH Miscellaneous (Remove Nicoderm Patch) 1 ea HS N/A 03/29/17 21:00 04/28/17 20:59 04/03/17 21:00 1 EA Budesonide/ Formoterol Fumarate (Symbicort 160/ 4.5 Inh) 2 puffs BID INH 03/30/17 09:00 04/29/17 08:59 04/10/17 08:26 2 PUFFS Tiotropium [place] (Spiriva Handihaler Inhaler) 2 puff QAM INH 03/30/17 09:00 04/29/17 08:59 04/10/17 08:27 2 PUFF Morphine Sulfate (MoRPHine SULFATE INJ) 2 mg Q3H PRN IV 03/30/17 15:15 04/13/17 15:14 04/10/17 08:16 2 MG Oxycodone HCl (Roxicodone Immediate Rel Tab) 5 mg Q4H PRN PO 03/30/17 15:15 04/13/17 15:14 04/01/17 01:55 5 MG Insulin Aspart (novoLOG ASPART) SLIDING SCALE G... ACHS SC 03/31/17 06:45 04/30/17 00:00 04/10/17 08:36 16 UNITS Aspirin (Ecotrin Tab) 81 mg QAM PO 04/04/17 09:00 05/04/17 08:59 04/10/17 08:26 81 MG Prednisone (PredniSONE TAB) 50 mg DAILY PO 04/06/17 08:00 05/06/17 07:59 04/10/17 08:26 50 MG Heparin Sodium (Porcine) (Heparin 10 Unit/ ml 5 ml Flush) 5 ml PRN PRN FLUSH 04/06/17 08:15 05/06/17 08:14 04/09/17 21:32 5 ML Amlodipine Besylate (Norvasc Tab) 5 mg QAM PO 04/07/17 08:00 05/07/17 07:59 04/10/17 08:26 5 MG Heparin Sodium (Porcine) (Heparin 100 Unit/ml 5ml Flush) 5 ml PRN PRN IV 04/07/17 07:45 05/07/17 07:44 04/10/17 05:36 5 ML Allopurinol (Zyloprim Tab) 200 mg DAILY PO 04/08/17 08:00 05/08/17 07:59 04/10/17 08:26 200 MG Hydroxyzine HCl (Vistaril Tab) 25 mg HSZ PRN PO 04/07/17 13:30 05/07/17 13:29 04/09/17 21:28 25 MG Enoxaparin Sodium (Lovenox Inj) 40 mg QAM SQ 04/09/17 08:00 05/09/17 07:59 04/10/17 08:27 40 MG Insulin Glargine (Lantus Solostar Pen) 12 units BID SC 04/09/17 20:00 05/08/17 07:59 04/10/17 08:36 12 UNITS Sodium Chloride 1,000 ml @ 75 mls/hr [id number] IV 04/10/17 08:00 05/10/17 07:59 04/10/17 08:27 75 MLS/HR Lorazepam (Ativan Inj) 0.5 mg ONE PRN IV 04/10/17 08:00 05/10/17 07:59 Lorazepam 0.5 mg/ Syringe 1 ml @ 1 mls/min ONE PRN IV 04/10/17 08:30 05/10/17 08:29 Impression (1) Tumor lysis syndrome (2) Chronic kidney disease (3) Small cell lung carcinoma (4) COPD (chronic obstructive pulmonary disease) Recommendations -- Continue radiation therapy and chemotherapy as per Dr. Fernandes & Dr. Hutchinson -- Continue Allopurinol 200 mg daily -- Monitor PRP, UA, Ca, PO4 daily -- Kidney function is back to baseline. Continue gentle hydration while patient is receiving chemotherapy -- G-6-PD level is pending. Uric acid level remains < 7.0. No acute indication for Rasburicase therapy at this time -- Serum potassium is mildly elevated. Will give one dose IV Furosemide today
--- NOTE | 2017-04-10 12:02 | DIAGNOSTIC IMAGING REPORT ---
CHEST ONE VIEW PORTABLE CLINICAL HISTORY: lung cancer COMPARISON STUDY: April 03, 2017 FINDINGS: Left-sided A-Port catheter remains unchanged in position. The heart is enlarged. There is a resolving interstitial edema pattern. There is decreased prominence of the mediastinal mass.[ A linear opacity at the right lung base is felt to be atelectatic IMPRESSION: 1. Interval decrease in the size the mediastinal mass 2. Resolving interstitial edema pattern. Electronically signed by: Ranjit Nelson M.D. 04/10/2017 12:01 PM Dictated Date/Time: 04/10/2017 12:00 PM
[2017-04-10] MEDS ORDERED: FUROSEMIDE 40 MG TAB PO ONE (14:00)
--- NOTE | 2017-04-10 17:53 | Family Medicine Progress Note ---
Progress Note Date of Service Apr 10, 2017. Subjective Pt resting comfortably in bed, biPaP in place. Denies pain anywhere, is eating well, awaiting radiation treatment. Spoke with daughter and brother, answered questions about ongoing treatment. ROS See HPI for pertinent positives and negatives. Medications Current Inpatient Medications Medications (Trade) Dose Ordered Sig/Michel Route Start Time Stop Time Status Last Admin Dose Admin Acetaminophen (Tylenol Tab) 650 mg Q4H PRN PO 03/28/17 23:45 04/27/17 23:44 Al Hydrox/Mg Hydrox/Simethicone (Maalox Max Susp) 15 ml Q4H PRN PO 03/28/17 23:45 04/27/17 23:44 Magnesium Hydroxide (Milk Of Magnesia Susp) 30 ml Q6H PRN PO 03/28/17 23:45 04/27/17 23:44 Polyethylene (Miralax Powder Packet) 17 gm DAILY PRN PO 03/28/17 23:45 04/27/17 23:44 Ondansetron HCl (Zofran Inj) 4 mg Q6H PRN IV 03/28/17 23:45 04/27/17 23:44 Albuterol/ Ipratropium (Duoneb) 3 ml QIDR INH 03/29/17 08:00 04/28/17 07:59 04/10/17 14:35 3 ML Atorvastatin Calcium (Lipitor Tab) 40 mg DAILY PO 03/29/17 09:00 04/28/17 08:59 04/10/17 08:26 40 MG Glucose (Glucose 40% Gel) 15-30 GRAMS 15 GRAMS... UD PRN PO 03/29/17 00:15 04/28/17 00:14 Glucose (Glucose Chew Tab) 4-8 Tablets 4 Tabl... UD PRN PO 03/29/17 00:15 04/28/17 00:14 Dextrose (Dextrose 50% 50ML Syringe) 25-50ML OF 50% DW IV FOR... UD PRN IV 03/29/17 00:15 04/28/17 00:14 04/05/17 06:38 50 ML Glucagon (Glucagon Inj) 1 mg UD PRN SQ 03/29/17 00:15 04/28/17 00:14 Nitroglycerin (Nitrostat Tab) 0.4 mg PRN PRN SL 03/29/17 00:15 04/28/17 00:14 Miscellaneous (Iv Fluids Completed) 1 ea PRN PRN N/A 03/29/17 00:30 03/29/18 00:29 Nicotine (Nicoderm Cq 21MG Patch) 1 patch QAM TD 03/29/17 09:00 04/28/17 08:59 04/02/17 08:38 1 PATCH Miscellaneous (Remove Nicoderm Patch) 1 ea HS N/A 03/29/17 21:00 04/28/17 20:59 04/03/17 21:00 1 EA Budesonide/ Formoterol Fumarate (Symbicort 160/ 4.5 Inh) 2 puffs BID INH 03/30/17 09:00 04/29/17 08:59 04/10/17 08:26 2 PUFFS Tiotropium [place] (Spiriva Handihaler Inhaler) 2 puff QAM INH 03/30/17 09:00 04/29/17 08:59 04/10/17 08:27 2 PUFF Morphine Sulfate (MoRPHine SULFATE INJ) 2 mg Q3H PRN IV 03/30/17 15:15 04/13/17 15:14 04/10/17 08:16 2 MG Oxycodone HCl (Roxicodone Immediate Rel Tab) 5 mg Q4H PRN PO 03/30/17 15:15 04/13/17 15:14 04/01/17 01:55 5 MG Insulin Aspart (novoLOG ASPART) SLIDING SCALE G... ACHS SC 03/31/17 06:45 04/30/17 00:00 04/10/17 12:54 13 UNITS Aspirin (Ecotrin Tab) 81 mg QAM PO 04/04/17 09:00 05/04/17 08:59 04/10/17 08:26 81 MG Prednisone (PredniSONE TAB) 50 mg DAILY PO 04/06/17 08:00 05/06/17 07:59 04/10/17 08:26 50 MG Heparin Sodium (Porcine) (Heparin 10 Unit/ ml 5 ml Flush) 5 ml PRN PRN FLUSH 04/06/17 08:15 05/06/17 08:14 04/09/17 21:32 5 ML Amlodipine Besylate (Norvasc Tab) 5 mg QAM PO 04/07/17 08:00 05/07/17 07:59 04/10/17 08:26 5 MG Heparin Sodium (Porcine) (Heparin 100 Unit/ml 5ml Flush) 5 ml PRN PRN IV 04/07/17 07:45 05/07/17 07:44 04/10/17 05:36 5 ML Allopurinol (Zyloprim Tab) 200 mg DAILY PO 04/08/17 08:00 05/08/17 07:59 04/10/17 08:26 200 MG Hydroxyzine HCl (Vistaril Tab) 25 mg HSZ PRN PO 04/07/17 13:30 05/07/17 13:29 04/09/17 21:28 25 MG Enoxaparin Sodium (Lovenox Inj) 40 mg QAM SQ 04/09/17 08:00 05/09/17 07:59 04/10/17 08:27 40 MG Insulin Glargine (Lantus Solostar Pen) 12 units BID SC 04/09/17 20:00 05/08/17 07:59 04/10/17 08:36 12 UNITS Sodium Chloride 1,000 ml @ 75 mls/hr [id number] IV 04/10/17 08:00 05/10/17 07:59 04/10/17 08:27 75 MLS/HR Lorazepam (Ativan Inj) 0.5 mg ONE PRN IV 04/10/17 08:00 05/10/17 07:59 Lorazepam 0.5 mg/ Syringe 1 ml @ 1 mls/min ONE PRN IV 04/10/17 08:30 05/10/17 08:29 Furosemide (Lasix Tab) 40 mg QAM PO 04/11/17 08:00 05/11/17 07:59 Objective Vital Signs Date Time Temp Pulse Resp B/P (MAP) Pulse Ox O2 Delivery O2 Flow Rate FiO2 04/10/17 15:07 36.6 84 20 114/71 (85) 95 04/10/17 14:36 95 95 30 04/10/17 14:35 95 20 95 BiPAP/CPAP 04/10/17 11:12 90 20 98 Nasal Cannula 2.0 04/10/17 10:48 96 Nasal Cannula 2.0 04/10/17 08:05 36.5 88 14 157/71 (99) 96 Nasal Cannula 2.0 04/10/17 08:00 96 Nasal Cannula 2.0 04/10/17 07:18 84 20 99 Nasal Cannula 3.0 04/10/17 04:20 36.5 82 20 133/64 (87) 98 Nasal Cannula 4.0 04/10/17 02:00 Nasal Cannula 3.0 04/10/17 00:42 36.6 77 20 134/64 (87) 99 BiPAP 04/09/17 22:31 77 97 30 04/09/17 21:08 78 18 126/63 (84) 98 CPAP 04/09/17 20:08 36.4 85 16 136/71 (92) 97 BiPAP 04/09/17 19:11 80 97 30 04/09/17 19:11 80 24 97 BiPAP/CPAP 30 04/09/17 17:55 86 98 30 Physical Exam Notes: GENERAL: Awake, alert, in no distress. Nasal cannula in place. Obese. HENT: Normocephalic, atraumatic. EYES: Normal conjunctiva. Sclera non-icteric. RESPIRATORY: Decreased breath sounds bilaterally. No crackles or rhonchi. CARDIAC: Regular rate, normal rhythm. Extremities well perfused. Pulses equal. ABDOMEN: Soft, non-distended. No tenderness to palpation. No rebound or guarding. No masses. Port in place over left anterior chest. EXTREMITIES: Calves are equal size bilaterally and non-tender. Moderate edema in hands. Severe dryness on LE b/l. NEURO: No motor deficits noted. SKIN: No rash or jaundice noted. Innumerable christelle derm/AK's. No evidence of abnormal or new petechiae or bruising. Laboratory Results 04/10/17 05:36 Red Blood Count 3.42, Mean Corpuscular Volume 95.9, Mean Corpuscular Hemoglobin 31.0, Mean Corpuscular Hemoglobin Concent 32.3, Mean Platelet Volume 10.6, Neutrophils (%) (Auto) 84.1, Lymphocytes (%) (Auto) 11.4, Monocytes (%) (Auto) 2.4, Eosinophils (%) (Auto) 0.7, Basophils (%) (Auto) 0.0, Neutrophils # (Auto) 2.43, Lymphocytes # (Auto) 0.33, Monocytes # (Auto) 0.07, Eosinophils # (Auto) 0.02, Basophils # (Auto) 0.00 04/10/17 05:36 Test 04/10/17 05:36 04/10/17 17:05 White Blood Count 2.89 K/uL (4.8-10.8) Red Blood Count 3.42 M/uL (4.7-6.1) Hemoglobin 10.6 g/dL (14.0-18.0) Hematocrit 32.8 % (42-52) Mean Corpuscular Volume 95.9 fL (80-100) Mean Corpuscular Hemoglobin 31.0 pg (25-34) Mean Corpuscular Hemoglobin Concent 32.3 g/dl (32-36) Platelet Count 50 K/uL (130-400) Mean Platelet Volume 10.6 fL (7.4-10.4) Neutrophils (%) (Auto) 84.1 % Lymphocytes (%) (Auto) 11.4 % Monocytes (%) (Auto) 2.4 % Eosinophils (%) (Auto) 0.7 % Basophils (%) (Auto) 0.0 % Neutrophils # (Auto) 2.43 K/uL (1.4-6.5) Lymphocytes # (Auto) 0.33 K/uL (1.2-3.4) Monocytes # (Auto) 0.07 K/uL (0.11-0.59) Eosinophils # (Auto) 0.02 K/uL (0-0.5) Basophils # (Auto) 0.00 K/uL (0-0.2) RDW Standard Deviation 45.9 fL (36.4-46.3) RDW Coefficient of Variation 13.1 % (11.5-14.5) Immature Granulocyte % (Auto) 1.4 % Immature Granulocyte # (Auto) 0.04 K/uL (0.00-0.02) Anion Gap 5.0 mmol/L (3-11) Est Creatinine Clear Calc Drug Dose 75.8 ml/min Estimated GFR () 74.9 Estimated GFR (Non- 64.6 BUN/Creatinine Ratio 47.0 (10-20) Uric Acid 5.4 mg/dl (2.6-7.2) Calcium Level 7.5 mg/dl (8.5-10.1) Phosphorus Level 3.3 mg/dl (2.5-4.9) Bedside Glucose 189 mg/dl (70-99) Assessment and Plan 76 y/o M PMH hypertension, CKD, AAA, CAD, uncontrolled COPD, tobacco abuse, T2DM. Here for dyspnea found to have lung mass on CT with subsequent path result of small cell lung ca. Of note, pt has expressed a strong aversion to being in the hospital, but has been mostly amenable to all interventions and diagnostics thus far. Radiation started but patient had difficulty completing on day 2. Started chemo on 04/03 after port placement. Developed tumor lysis syndrome, stable, as below. Dr. Hutchinson is going to restart chemotherapy on Thursday given low platelets. If kidney function stable and potassium normal, can consider discharge tomorrow, as discussed with Nephro. Developed hyperkalemia likely 2/2 tumor lysis syndrome - given 30g kayexalate stat to lower potassium; hyperkalemia persists 5.2 on 04/10 - EKG normal - Uric acidemia resolved. Following daily, as radiation and chemo have been restarted, need to observe how lysis of tumor cells develops although expect this to decrease and improve. - Nephro consulted, appreciate recs Continue Diuresing with gentle IVF, Allopurinol 200 mg daily. PRP, UA, Ca, PO4 daily. G-6-PD level -- 14.8 wnl Rasburicase not indicated at this time. (Pharmacy indicates 24 hour processing time to obtain medication if needed) Small cell lung cancer - found on CT, biopsy confirms - for chemo weekly with Dr. Ambriz - rad/onc consult and radiation started, scheduled 5x/wk - Needs to continue Bipap on discharge; setting up - will need 2 step on day of discharge Acute on chronic SOB/COPD/ANGEL - strongly suspect chronic respiratory failure related to COPD -- requiring O2 24/7 and bipap at any time of sleep to be safe - cannot safely discharge to home without noninvasive positive pressure ventilation. COPD appears severe enough that interuption in this care will likely lead to imminent decline or even possibly . - will need 2 step prior to discharge - PO Steroid taper on dc. Currently taking Pred 50 PO daily. - due to chronic resp failure consequent to COPD, pt now requires a non- invasive home ventilator. Bi-level therapy with and w/o a rate would be ineffective as patient requires a volume targeted mode. Ventilation is required to decrease the work of breathing and improve pulmonary status. Mode/Settings: Max pressure: 12 PS Max: 5 FiO2: 30% Thrombocytopenia - changed from Heparin to Lovenox 04/09 - asymptomatic - following CBC w/ diff -- down to 50 on 04/10 Hypocalcemia - likely 2/2 tumor lysis syndrome - asymptomatic - no indication for repletion at this time unless develops symptoms like tetany or cardiac arrhythmia. CKD 3B - Improved slightly today, appearing prerenal - ACEi and HCTZ have been held since admission. - gentle IVF @75ml/hr running - suspect cor pulmonale / pulmonary HTN is what led to him appearing swollen despite also appearing intravascular volume depleted - [employer] 1.11, 04/10 stable Hyperglycemia, T2DM - improving. Continue to follow on insulins with steroids - titrating, decreased lantus BID dose to 12 units (on 04/09) since slightly lower sugars in morning and sometimes evening. Hypertension - DC ZEKE/thiazide, replaced with 5mg Norvasc daily. - controlled Hyperlipidemia - continue atorvastatin 40mg daily CAD - ASA 81mg tab daily Tobacco abuse - nicotine 21 mg patch TD QAM. Insomnia - added Vestaril, tolerating. Can continue on DC DVT ppx heparin SQ 5000units Code: full Dispo: Tele. Anticipate discharge once kidneys stable after chemo/radiation -- possibly over this coming weekend 04/11-04/12. Pt lives at home alone, daughter and brother are great sources of support and live close by and can transport. Continued [facility] stay due to: multiple IV medications needed Discharge planning: home Resident Tracking Resident Involvement: Resident Care Provided Care Provided: Adult Hospital Medicine History Resident Physician Supervision Note: I was present with Dr. Sparrow during the history and exam. I discussed the case with the resident and agree with the findings and plan as documented in the note. Any exceptions or clarifications are listed here. Pt resting in bed s /p radiotherapy at time of evaluation, tired but without other complaint on BiPAP. Discussed course of therapy with family. Lungs w/ rhonchi bilaterally. Monitor BMP. Follow w/ oncology for outpatient management planning.
[2017-04-11] VITALS (14 sets, daily range): BP systolic 112–159; BP diastolic 63–86; PULSE 69–109; TEMP 36.3–36.7; O2SAT 93–99
[2017-04-11 06:18] LABS: MEAN CORPUSCULAR HGB CONC 33.1 g/dl (32-36); MEAN PLATELET VOLUME 10.7 fL (7.4-10.4); PLATELET COUNT 38 K/uL (130-400)
[2017-04-11 06:31] LABS: EOS % 2.7 %; EOS ABS # 0.02 K/uL (0-0.5); HEMATOCRIT 29.3 % (42-52); HEMOGLOBIN 9.7 g/dL (14.0-18.0); LYMPH % 22.7 %; LYMPH ABS # 0.17 K/uL (1.2-3.4); MEAN CELL VOLUME 94.8 fL (80-100); MEAN CORPUSCULAR HEMOGLOBIN 31.4 pg (25-34); MONO ABS # 0.03 K/uL (0.11-0.59); NEUT % 70.6 %; NEUT ABS # 0.53 K/uL (1.4-6.5); RED CELL DISTRIBUTION WIDTH CV 13.2 % (11.5-14.5); RED CELL DISTRIBUTION WIDTH SD 45.9 fL (36.4-46.3); WHITE BLOOD COUNT 0.75 K/uL (4.8-10.8)
[2017-04-11 06:38] LABS: CALCIUM 7.3 mg/dl (8.5-10.1); CREATININE 1.22 mg/dl (0.60-1.40); PHOSPHORUS 3.1 mg/dl (2.5-4.9); POTASSIUM 5.3 mmol/L (3.5-5.1); URIC ACID 5.3 mg/dl (2.6-7.2)
[2017-04-11] MEDS: ALBUT/IPRATROP 3MG/0.5MG NEB 3 ML VIAL INH SCH ×3 (07:21→19:55)
[2017-04-11] MEDS: NICOTINE 21 MG/24 HR TDSY TD SCH (08:00)
[2017-04-11] MEDS ORDERED: FUROSEMIDE 40 MG TAB PO SCH (08:00)
[2017-04-11] MEDS: SODIUM CHLORIDE 0.9% 1000ML 1,000 ML IV SCH (08:08)
--- NOTE | 2017-04-11 08:30 | Family Medicine Progress Note ---
Progress Note Date of Service Apr 11, 2017. Subjective Pt evaluation today including: conversation w/ patient, physical exam, chart review, lab review, review of studies, conversation w/ field sales consultant, review of inpatient medication list Patient feeling well, better than he did yesterday in terms of fatigue. He denies acute overnight events. He is comfortable and denies pain. He denies fevers/chills, headaches, CP, palpitations, dyspnea, abdominal pain, rashes. He has ongoing significan swelling in his extremities. lower extremity swelling or rashes. He is tolerating diet without nausea or vomiting, ambulating without exacerbating symptoms, and voiding and stooling appropriately. ROS is unremarkable except as noted above. Objective Vital Signs Date Time Temp Pulse Resp B/P (MAP) Pulse Ox O2 Delivery O2 Flow Rate FiO2 04/11/17 07:35 36.4 93 20 112/65 (81) 96 04/11/17 07:21 88 20 95 Nasal Cannula 4.0 04/11/17 04:28 36.7 95 20 159/86 (110) 94 BiPAP 04/11/17 00:32 36.6 92 20 147/63 (91) 93 BiPAP 04/11/17 00:00 Nasal Cannula 2.0 04/10/17 21:48 68 97 30 04/10/17 19:16 36.6 95 18 158/68 (98) 100 96 04/10/17 19:07 96 20 93 Room Air 04/10/17 15:07 36.6 84 20 114/71 (85) 95 04/10/17 14:36 95 95 30 04/10/17 14:35 95 20 95 BiPAP/CPAP 04/10/17 11:12 90 20 98 Nasal Cannula 2.0 04/10/17 10:48 96 Nasal Cannula 2.0 Physical Exam Notes: GENERAL: Awake, alert, in no distress. Nasal cannula in place. Obese. HENT: Normocephalic, atraumatic. EYES: Normal conjunctiva. Sclera non-icteric. RESPIRATORY: Decreased breath sounds bilaterally. No crackles or rhonchi. CARDIAC: Regular rate, normal rhythm. Extremities well perfused. Pulses equal. ABDOMEN: Soft, non-distended. No tenderness to palpation. No rebound or guarding. No masses. Port in place over left anterior chest. EXTREMITIES: Calves are equal size bilaterally and non-tender. Moderate edema in hands. Severe dryness on LE b/l. NEURO: No motor deficits noted. SKIN: No rash or jaundice noted. Innumerable christelle derm/AK's. No evidence of abnormal or new petechiae or bruising. Laboratory Results Results Past 24 Hours Test 04/11/17 05:09 04/11/17 07:44 04/11/17 11:42 04/11/17 16:44 Range/Units White Blood Count 0.75 4.8-10.8 K/uL Red Blood Count 3.09 4.7-6.1 M/uL Hemoglobin 9.7 14.0-18.0 g/dL Hematocrit 29.3 42-52 % Mean Corpuscular Volume 94.8 80-100 fL Mean Corpuscular Hemoglobin 31.4 25-34 pg Mean Corpuscular Hemoglobin Concent 33.1 32-36 g/dl Platelet Count 38 130-400 K/uL Mean Platelet Volume 10.7 7.4-10.4 fL Neutrophils (%) (Auto) 70.6 % Lymphocytes (%) (Auto) 22.7 % Monocytes (%) (Auto) 4.0 % Eosinophils (%) (Auto) 2.7 % Basophils (%) (Auto) 0.0 % Neutrophils # (Auto) 0.53 1.4-6.5 K/uL Lymphocytes # (Auto) 0.17 1.2-3.4 K/uL Monocytes # (Auto) 0.03 0.11-0.59 K/uL Eosinophils # (Auto) 0.02 0-0.5 K/uL Basophils # (Auto) 0.00 0-0.2 K/uL RDW Standard Deviation 45.9 36.4-46.3 fL RDW Coefficient of Variation 13.2 11.5-14.5 % Immature Granulocyte % (Auto) 0.0 % Immature Granulocyte # (Auto) 0.00 0.00-0.02 K/uL Hyposegmented Neutrophils 1+ Toxic Granulation 1+ Sodium Level 135 136-145 mmol/L Potassium Level 5.3 3.5-5.1 mmol/L Chloride Level 103 98-107 mmol/L Carbon Dioxide Level 26 21-32 mmol/L Anion Gap 6.0 3-11 mmol/L Blood Urea Nitrogen 54 7-18 mg/dl Creatinine 1.22 0.60-1.40 mg/dl Est Creatinine Clear Calc Drug Dose 70.9 ml/min Estimated GFR () 66.8 Estimated GFR (Non- 57.6 BUN/Creatinine Ratio 44.3 10-20 Random Glucose 141 70-99 mg/dl Uric Acid 5.3 2.6-7.2 mg/dl Calcium Level 7.3 8.5-10.1 mg/dl Phosphorus Level 3.1 2.5-4.9 mg/dl Bedside Glucose 119 167 267 70-99 mg/dl Test 04/11/17 20:40 Range/Units Bedside Glucose 220 70-99 mg/dl Assessment and Plan 76 y/o M PMH hypertension, CKD, AAA, CAD, uncontrolled COPD, tobacco abuse, T2DM , presented with dyspnea found to have lung mass on CT with subsequent path result of small cell lung ca. Radiation started but patient had difficulty completing on day 2. Started chemo on 04/03 after port placement. Developed tumor lysis syndrome, stable, as below. Dr. Hutchinson is going to restart chemotherapy on Thursday given low platelets. Hyperkalemia likely 2/2 tumor lysis syndrome - EKG normal - Given 30g Kayexalate stat to lower potassium; hyperkalemia persists 5.3 - IV furosemide ordered, should help to reduce this further - Uric acidemia resolved. Following daily, as radiation and chemo have been restarted, need to observe how lysis of tumor cells develops although expect this to decrease and improve. - Nephro consulted, appreciate recs Continue Diuresing with gentle IVF, Allopurinol 200 mg daily. PRP, UA, Ca, PO4 daily. G-6-PD level -- 14.8 wnl Rasburicase not indicated at this time. (Pharmacy indicates 24 hour processing time to obtain medication if needed) Small cell lung cancer - Found on CT, biopsy confirms - For chemo weekly with Dr. Ambriz - Rad/onc consult and radiation started, scheduled 5x/wk - Needs to continue Bipap on discharge; setting up - Will need 2 step on day of discharge Acute on chronic SOB/COPD/ANGEL - Strongly suspect chronic respiratory failure related to COPD -- requiring O2 24/7 and Bipap at any time of sleep to be safe - cannot safely discharge to home without noninvasive positive pressure ventilation. COPD appears severe enough that interruption in this care will likely lead to imminent decline or even possibly . Bi-level therapy with and w/o a rate would be ineffective as patient requires a volume targeted mode. Ventilation is required to decrease the work of breathing and improve pulmonary status. Mode/Settings: Max pressure: 12 PS Max: 5 FiO2: 30% - Will need 2 step prior to discharge - PO Steroid taper on discharge. Currently taking Pred 50 PO daily. Thrombocytopenia - patient asymptomatic - Changed from Heparin to Lovenox on 04/09 - Platelets down to 38 on 04/11. no indication to transfuse at this time - Trend CBC Leukopenia - patient asymptomatic - WBC down from 2.89 to 0.75, with ANC dropping from 2.83 to 0.53 - Neutropenic precautions - 2 doses of Neupogen ordered - Trend CBC Hypocalcemia - likely 2/2 tumor lysis syndrome. Patient asymptomatic - No indication for repletion at this time unless develops symptoms like tetany or cardiac arrhythmia. CKD 3B - Improved slightly today, appearing prerenal - ACEi and HCTZ have been held since admission. - Interactive Account Manager 1.22, stable - Suspect cor pulmonale / pulmonary HTN is what led to him appearing swollen despite also appearing intravascular volume depleted - Patient appears volume overloaded. IVF discontinued. IV Lasix ordered - should assist with both fluid status and potassium levels Hyperglycemia, T2DM - Improving. Continue to follow on insulins with steroids - Titrating, decreased lantus BID dose to 12 units (on 04/09) since slightly lower sugars in morning and sometimes evening. Hypertension- Controlled - DC ZEKE/thiazide, replaced with 5mg Norvasc daily. Hyperlipidemia - Continue atorvastatin 40mg daily CAD - ASA 81mg tab daily Tobacco abuse - Nicotine 21 mg patch TD QAM. Insomnia - Added Vistaril, tolerating. Can continue on DC DVT ppx - Heparin SQ 5000units Code: full Continued [facility] [place] stay due to: multiple IV medications needed Discharge planning: home Resident Tracking Resident Involvement: Resident Care Provided Care Provided: Adult Hospital Medicine Assessment/Plan Resident Physician Supervision Note: I was present with Dr. Mcdaniel during the history and exam. I discussed the case with the resident and agree with the findings and plan as documented in the note. Any exceptions or clarifications are listed here. 76 y/o male h/o HTN, CKD, COPD w/ tobacco use and DMII p/w COPD exacerbation and SCLC. Pt reports improved shortness of breath and cough since radiotherapy with stable potassium and controlled uric acid w/ allopurinol. Will need 2 step at discharge but tolerating without O2 intermittently. Leukopenia appreciated and oncology aware, dose x 1 of CSF given, next for tomorrow w/ repeat labs.
[2017-04-11] MEDS: BUDESONIDE/FORMOTEROL FUMARATE 160/4.5 60 PUFFS/INHALER INH SCH ×2 (08:32→20:35)
[2017-04-11] MEDS: ALLOPURINOL 100 MG TAB PO SCH (08:33)
[2017-04-11] MEDS: ATORVASTATIN 40 MG TAB PO SCH (08:33)
[2017-04-11] MEDS: TIOTROPIUM BROMIDE 5 PUFF/90 MCG INH INH SCH (08:33)
[2017-04-11] MEDS: ASPIRIN 81 MG ECTAB PO SCH (08:34)
[2017-04-11] MEDS: AMLODIPINE BESYLATE 5 MG TAB PO SCH (08:34)
[2017-04-11] MEDS: ENOXAPARIN 40 MG/0.4 ML SYR SQ SCH (08:35)
[2017-04-11] MEDS: INSULIN ASPART 100 UNITS/ML 3 ML PEN SC SCH ×4 (08:39→20:46)
[2017-04-11] MEDS: INSULIN GLARGINE SOLOSTAR 100 UNITS/ML 3 ML PEN SC SCH ×2 (08:40→20:45)
--- NOTE | 2017-04-11 11:29 | Nephrology Progress Note ---
Nephrology Progress Note Date of Service Apr 11, 2017. Chief Complaint Follow-up for recent acute kidney injury with tumor lysis syndrome Subjective Mr. stubbs was seen and examined in his room this morning. Has been otherwise feeling well. Renal function remained stable creatinine 1.2. Potassium remained elevated at 5.3. Blood pressure relatively stable. Review of Systems A complete review of systems was performed. Pertinent positives are noted above. All other systems are negative. Vital Signs Last 8 Hrs Date Time Temp Pulse Resp B/P (MAP) Pulse Ox O2 Delivery O2 Flow Rate FiO2 04/11/17 07:35 36.4 93 20 112/65 (81) 96 04/11/17 07:21 88 20 95 Nasal Cannula 4.0 04/11/17 04:28 36.7 95 20 159/86 (110) 94 BiPAP Last Recorded Weight Weight (Kilograms): 137.100 Physical Exam GENERAL: Elderly male , AAA x 3, pleasant,obese, healthy-appearing, not in any distress. NECK: Supple, no JVD. RESPIRATORY: Normal breathing efforts, no accessory muscle use, clear to auscultation bilaterally, no wheezes or rales. CARDIOVASCULAR: S1, S2 normal, rate rhythm regular. EXTREMITY: 2 to 3+ bilateral lower extremity edema NEURO: speech fluent. PSYCHIATRY: Normal mood and judgment Family History Negative for CKD / ESRD Social History Occupation: retired Retired. Current smoker Laboratory Results Past 24 Hours 04/11/17 05:09 Red Blood Count 3.09, Mean Corpuscular Volume 94.8, Mean Corpuscular Hemoglobin 31.4, Mean Corpuscular Hemoglobin Concent 33.1, Mean Platelet Volume 10.7, Neutrophils (%) (Auto) 70.6, Lymphocytes (%) (Auto) 22.7, Monocytes (%) (Auto) 4.0, Eosinophils (%) (Auto) 2.7, Basophils (%) (Auto) 0.0, Neutrophils # (Auto) 0.53, Lymphocytes # (Auto) 0.17, Monocytes # (Auto) 0.03, Eosinophils # (Auto) 0.02, Basophils # (Auto) 0.00 04/11/17 05:09 Test 04/10/17 12:01 04/10/17 17:05 04/10/17 20:31 04/11/17 05:09 Bedside Glucose 109 mg/dl (70-99) 189 mg/dl (70-99) 317 mg/dl (70-99) White Blood Count 0.75 K/uL (4.8-10.8) Red Blood Count 3.09 M/uL (4.7-6.1) Hemoglobin 9.7 g/dL (14.0-18.0) Hematocrit 29.3 % (42-52) Mean Corpuscular Volume 94.8 fL (80-100) Mean Corpuscular Hemoglobin 31.4 pg (25-34) Mean Corpuscular Hemoglobin Concent 33.1 g/dl (32-36) Platelet Count 38 K/uL (130-400) Mean Platelet Volume 10.7 fL (7.4-10.4) Neutrophils (%) (Auto) 70.6 % Lymphocytes (%) (Auto) 22.7 % Monocytes (%) (Auto) 4.0 % Eosinophils (%) (Auto) 2.7 % Basophils (%) (Auto) 0.0 % Neutrophils # (Auto) 0.53 K/uL (1.4-6.5) Lymphocytes # (Auto) 0.17 K/uL (1.2-3.4) Monocytes # (Auto) 0.03 K/uL (0.11-0.59) Eosinophils # (Auto) 0.02 K/uL (0-0.5) Basophils # (Auto) 0.00 K/uL (0-0.2) RDW Standard Deviation 45.9 fL (36.4-46.3) RDW Coefficient of Variation 13.2 % (11.5-14.5) Immature Granulocyte % (Auto) 0.0 % Immature Granulocyte # (Auto) 0.00 K/uL (0.00-0.02) Hyposegmented Neutrophils 1+ Toxic Granulation 1+ Anion Gap 6.0 mmol/L (3-11) Est Creatinine Clear Calc Drug Dose 70.9 ml/min Estimated GFR () 66.8 Estimated GFR (Non- 57.6 BUN/Creatinine Ratio 44.3 (10-20) Uric Acid 5.3 mg/dl (2.6-7.2) Calcium Level 7.3 mg/dl (8.5-10.1) Phosphorus Level 3.1 mg/dl (2.5-4.9) Test 04/11/17 07:44 Bedside Glucose 119 mg/dl (70-99) Allergies Coded Allergies: No Known Allergies (Verified , 03/28/17) Medications Current Inpatient Medications Medications (Trade) Dose Ordered Sig/Michel Route Start Time Stop Time Status Last Admin Dose Admin Acetaminophen (Tylenol Tab) 650 mg Q4H PRN PO 03/28/17 23:45 04/27/17 23:44 Al Hydrox/Mg Hydrox/Simethicone (Maalox Max Susp) 15 ml Q4H PRN PO 03/28/17 23:45 04/27/17 23:44 Magnesium Hydroxide (Milk Of Magnesia Susp) 30 ml Q6H PRN PO 03/28/17 23:45 04/27/17 23:44 Polyethylene (Miralax Powder Packet) 17 gm DAILY PRN PO 03/28/17 23:45 04/27/17 23:44 Ondansetron HCl (Zofran Inj) 4 mg Q6H PRN IV 03/28/17 23:45 04/27/17 23:44 Albuterol/ Ipratropium (Duoneb) 3 ml QIDR INH 03/29/17 08:00 04/28/17 07:59 04/11/17 07:21 3 ML Atorvastatin Calcium (Lipitor Tab) 40 mg DAILY PO 03/29/17 09:00 04/28/17 08:59 04/11/17 08:33 40 MG Glucose (Glucose 40% Gel) 15-30 GRAMS 15 GRAMS... UD PRN PO 03/29/17 00:15 04/28/17 00:14 Glucose (Glucose Chew Tab) 4-8 Tablets 4 Tabl... UD PRN PO 03/29/17 00:15 04/28/17 00:14 Dextrose (Dextrose 50% 50ML Syringe) 25-50ML OF 50% DW IV FOR... UD PRN IV 03/29/17 00:15 04/28/17 00:14 04/05/17 06:38 50 ML Glucagon (Glucagon Inj) 1 mg UD PRN SQ 03/29/17 00:15 04/28/17 00:14 Nitroglycerin (Nitrostat Tab) 0.4 mg PRN PRN SL 03/29/17 00:15 04/28/17 00:14 Miscellaneous (Iv Fluids Completed) 1 ea PRN PRN N/A 03/29/17 00:30 03/29/18 00:29 Nicotine (Nicoderm Cq 21MG Patch) 1 patch QAM TD 03/29/17 09:00 04/28/17 08:59 04/02/17 08:38 1 PATCH Miscellaneous (Remove Nicoderm Patch) 1 ea HS N/A 03/29/17 21:00 04/28/17 20:59 04/03/17 21:00 1 EA Budesonide/ Formoterol Fumarate (Symbicort 160/ 4.5 Inh) 2 puffs BID INH 03/30/17 09:00 04/29/17 08:59 04/11/17 08:32 2 PUFFS Tiotropium [place] (Spiriva Handihaler Inhaler) 2 puff QAM INH 03/30/17 09:00 04/29/17 08:59 04/11/17 08:33 2 PUFF Morphine Sulfate (MoRPHine SULFATE INJ) 2 mg Q3H PRN IV 03/30/17 15:15 04/13/17 15:14 04/10/17 23:59 2 MG Oxycodone HCl (Roxicodone Immediate Rel Tab) 5 mg Q4H PRN PO 03/30/17 15:15 04/13/17 15:14 04/01/17 01:55 5 MG Insulin Aspart (novoLOG ASPART) SLIDING SCALE G... ACHS SC 03/31/17 06:45 04/30/17 00:00 04/11/17 08:39 19 UNITS Aspirin (Ecotrin Tab) 81 mg QAM PO 04/04/17 09:00 05/04/17 08:59 04/11/17 08:34 81 MG Prednisone (PredniSONE TAB) 50 mg DAILY PO 04/06/17 08:00 05/06/17 07:59 04/11/17 08:33 50 MG Heparin Sodium (Porcine) (Heparin 10 Unit/ ml 5 ml Flush) 5 ml PRN PRN FLUSH 04/06/17 08:15 05/06/17 08:14 04/09/17 21:32 5 ML Amlodipine Besylate (Norvasc Tab) 5 mg QAM PO 04/07/17 08:00 05/07/17 07:59 04/11/17 08:34 5 MG Heparin Sodium (Porcine) (Heparin 100 Unit/ml 5ml Flush) 5 ml PRN PRN IV 04/07/17 07:45 05/07/17 07:44 04/10/17 23:59 5 ML Allopurinol (Zyloprim Tab) 200 mg DAILY PO 04/08/17 08:00 05/08/17 07:59 04/11/17 08:33 200 MG Hydroxyzine HCl (Vistaril Tab) 25 mg HSZ PRN PO 04/07/17 13:30 05/07/17 13:29 04/09/17 21:28 25 MG Enoxaparin Sodium (Lovenox Inj) 40 mg QAM SQ 04/09/17 08:00 05/09/17 07:59 04/11/17 08:35 40 MG Insulin Glargine (Lantus Solostar Pen) 12 units BID SC 04/09/17 20:00 05/08/17 07:59 04/11/17 08:40 12 UNITS Sodium Chloride 1,000 ml @ 75 mls/hr [id number] IV 04/10/17 08:00 05/10/17 07:59 04/11/17 08:08 75 MLS/HR Lorazepam (Ativan Inj) 0.5 mg ONE PRN IV 04/10/17 08:00 05/10/17 07:59 Lorazepam 0.5 mg/ Syringe 1 ml @ 1 mls/min ONE PRN IV 04/10/17 08:30 05/10/17 08:29 Furosemide (Lasix Tab) 40 mg QAM PO 04/11/17 08:00 05/11/17 07:59 04/11/17 08:34 40 MG Impression (1) Tumor lysis syndrome (2) Chronic kidney disease (3) Small cell lung carcinoma (4) COPD (chronic obstructive pulmonary disease) Recommendations -- suggest checking potassium later this afternoon and if still remained elevated give Kayexalate 30 gram p.o. x1 -- S patient remains significantly volume overloaded, if discharge is planning, suggested to continue on oral Lasix 40 milligram daily on discharge -- Continue Allopurinol 200 mg daily -- Monitor PRP, UA, Ca, PO4 daily --okay to be discharged nephrology standpoint, suggest outpatient follow-up with Dr. Jacobs in next few weeks
[2017-04-11] MEDS ORDERED: FILGRASTIM 480 MCG/1.6 ML VIAL SC STA (13:50)
[2017-04-11] MEDS ORDERED: FUROSEMIDE INJ 20 MG in SYRINGE 0 ML IV SCH (20:00)
[2017-04-11] MEDS: MoRPHine SULFATE 2 MG/ML CARP IV PRN (21:29)
[2017-04-12] VITALS (13 sets, daily range): BP systolic 124–162; BP diastolic 54–92; PULSE 96–117; TEMP 36.4–36.8; O2SAT 92–99
[2017-04-12 06:56] LABS: HEMATOCRIT 30.3 % (42-52); MEAN CELL VOLUME 94.1 fL (80-100); MEAN CORPUSCULAR HEMOGLOBIN 31.1 pg (25-34); RED CELL DISTRIBUTION WIDTH CV 13.1 % (11.5-14.5); RED CELL DISTRIBUTION WIDTH SD 45.3 fL (36.4-46.3); WHITE BLOOD COUNT 1.56 K/uL (4.8-10.8)
[2017-04-12 07:04] LABS: CALCIUM 7.7 mg/dl (8.5-10.1); CREATININE 1.27 mg/dl (0.60-1.40); POTASSIUM 4.6 mmol/L (3.5-5.1)
[2017-04-12 07:08] LABS: MEAN PLATELET VOLUME 10.9 fL (7.4-10.4); PLATELET COUNT 38 K/uL (130-400)
[2017-04-12 07:09] LABS: PHOSPHORUS 2.8 mg/dl (2.5-4.9); URIC ACID 4.9 mg/dl (2.6-7.2)
[2017-04-12] MEDS: ALBUT/IPRATROP 3MG/0.5MG NEB 3 ML VIAL INH SCH ×4 (07:09→20:03)
[2017-04-12 07:36] LABS: EOS % 1.3 %; EOS ABS # 0.02 K/uL (0-0.5); IG# 0.01 K/uL (0.00-0.02); LYMPH ABS # 0.25 K/uL (1.2-3.4); MONO % 1.9 %; MONO ABS # 0.03 K/uL (0.11-0.59); NEUT % 80.2 %; NEUT ABS # 1.25 K/uL (1.4-6.5)
[2017-04-12] MEDS: NICOTINE 21 MG/24 HR TDSY TD SCH (08:00)
[2017-04-12] MEDS ORDERED: FILGRASTIM 480 MCG/1.6 ML VIAL SC SCH (08:00)
[2017-04-12] MEDS: TIOTROPIUM BROMIDE 5 PUFF/90 MCG INH INH SCH (08:45)
[2017-04-12] MEDS: BUDESONIDE/FORMOTEROL FUMARATE 160/4.5 60 PUFFS/INHALER INH SCH ×2 (08:45→21:17)
--- NOTE | 2017-04-12 08:45 | Family Medicine Progress Note ---
Progress Note Date of Service Apr 12, 2017. Subjective Pt evaluation today including: conversation w/ patient, conversation w/ family , physical exam, chart review, lab review, review of studies, conversation w/ knowledge management consultant, review of inpatient medication list Patient feeling well, better than he did yesterday in terms of fatigue. He denies acute overnight events. He is comfortable and denies pain. He denies fevers/chills, headaches, CP, palpitations, dyspnea, abdominal pain, rashes. He notes improvement in hand swelling after switching from PO to IV furosemide. Lower extremity swelling persists. No rashes. He is tolerating diet without nausea or vomiting and voiding and stooling appropriately. ROS is unremarkable except as noted above. Objective Vital Signs Date Time Temp Pulse Resp B/P (MAP) Pulse Ox O2 Delivery O2 Flow Rate FiO2 04/12/17 07:36 36.4 100 20 145/92 (109) 99 04/12/17 07:10 96 30 04/12/17 07:09 108 20 96 Nasal Cannula 4.0 04/12/17 04:00 36.4 96 20 162/54 (90) 92 Room Air 04/12/17 00:26 36.6 105 20 136/71 (92) 93 BiPAP 04/12/17 00:00 BiPAP 04/11/17 21:33 69 99 30 04/11/17 20:19 36.5 109 20 145/68 (93) 93 4.0 04/11/17 20:00 Nasal Cannula 4.0 04/11/17 19:30 108 20 94 Nasal Cannula 4.0 04/11/17 16:00 94 Nasal Cannula 4.0 30 Humidified Oxygen 04/11/17 15:16 36.3 90 20 125/69 (87) 94 4.0 04/11/17 14:46 98 22 98 Nasal Cannula 4.0 04/11/17 11:29 36.6 98 20 144/75 (98) 95 04/11/17 11:20 80 20 97 BiPAP/CPAP 30 04/11/17 11:19 98 30 Physical Exam Notes: GENERAL: Awake, alert, in no distress. Nasal cannula in place. Obese. HENT: Normocephalic, atraumatic. EYES: Normal conjunctiva. Sclera non-icteric. RESPIRATORY: Decreased breath sounds bilaterally. No crackles or rhonchi. CARDIAC: Regular rate, normal rhythm. Extremities well perfused. Pulses equal. ABDOMEN: Soft, non-distended. No tenderness to palpation. No rebound or guarding. No masses. Port in place over left anterior chest. EXTREMITIES: Calves are equal size bilaterally and non-tender. Moderate edema in hands, some "pruning" evident. Significant edema persists in LE bilaterally with severe skin dryness, no rashes. NEURO: No motor deficits noted. SKIN: No rash or jaundice noted. Innumerable christelle derm/AK's. No evidence of abnormal or new petechiae or bruising. Laboratory Results Results Past 24 Hours Test 04/11/17 20:40 04/12/17 05:25 04/12/17 07:47 04/12/17 11:36 Range/Units Bedside Glucose 220 96 160 70-99 mg/dl White Blood Count 1.56 4.8-10.8 K/uL Red Blood Count 3.22 4.7-6.1 M/uL Hemoglobin 10.0 14.0-18.0 g/dL Hematocrit 30.3 42-52 % Mean Corpuscular Volume 94.1 80-100 fL Mean Corpuscular Hemoglobin 31.1 25-34 pg Mean Corpuscular Hemoglobin Concent 33.0 32-36 g/dl Platelet Count 38 130-400 K/uL Mean Platelet Volume 10.9 7.4-10.4 fL Neutrophils (%) (Auto) 80.2 % Lymphocytes (%) (Auto) 16.0 % Monocytes (%) (Auto) 1.9 % Eosinophils (%) (Auto) 1.3 % Basophils (%) (Auto) 0.0 % Neutrophils # (Auto) 1.25 1.4-6.5 K/uL Lymphocytes # (Auto) 0.25 1.2-3.4 K/uL Monocytes # (Auto) 0.03 0.11-0.59 K/uL Eosinophils # (Auto) 0.02 0-0.5 K/uL Basophils # (Auto) 0.00 0-0.2 K/uL RDW Standard Deviation 45.3 36.4-46.3 fL RDW Coefficient of Variation 13.1 11.5-14.5 % Immature Granulocyte % (Auto) 0.6 % Immature Granulocyte # (Auto) 0.01 0.00-0.02 K/uL Dohle Bodies 1+ Sodium Level 137 136-145 mmol/L Potassium Level 4.6 3.5-5.1 mmol/L Chloride Level 102 98-107 mmol/L Carbon Dioxide Level 27 21-32 mmol/L Anion Gap 8.0 3-11 mmol/L Blood Urea Nitrogen 51 7-18 mg/dl Creatinine 1.27 0.60-1.40 mg/dl Est Creatinine Clear Calc Drug Dose 67.6 ml/min Estimated GFR () 63.6 Estimated GFR (Non- 54.9 BUN/Creatinine Ratio 40.3 10-20 Random Glucose 88 70-99 mg/dl Uric Acid 4.9 2.6-7.2 mg/dl Calcium Level 7.7 8.5-10.1 mg/dl Phosphorus Level 2.8 2.5-4.9 mg/dl Test 04/12/17 16:26 Range/Units Bedside Glucose 227 70-99 mg/dl Assessment and Plan 76 y/o M PMH hypertension, CKD, AAA, CAD, uncontrolled COPD, tobacco abuse, T2DM , presented with dyspnea found to have lung mass on CT with subsequent path result of small cell lung ca. Radiation started but patient had difficulty completing on day 2. Started chemo on 04/03 after port placement. Developed tumor lysis syndrome, as well as thrombocytopenia and neutropenia, as below. Hyperkalemia likely 2/2 tumor lysis syndrome - EKG normal. Nephrology consulted, recs appreciated - Given 30g Kayexalate stat to lower potassium; hyperkalemia persisted 5.3. Subsequently improved with IV furosemide - IV furosemide ordered, which reduced potassium to 4.6 - Discussed with nephrology, given inefficacy of PO furosemide likely 2/2 gut edema, patient to be discharge home on PO Bumex 1mg, with nephro follow up Tumour lysis syndrome - Hyperkalemia - resolved, as above - Uric acidemia resolved. - G-6-PD level -- 14.8 wnl - Rasburicase not indicated at this time. (Pharmacy indicates 24 hour processing time to obtain medication if needed) - Continue Allopurinol 200 mg daily - Trend BMP, urica acid, Ca, PO4 daily Small cell lung cancer Oncology consulted, recs appreciated - Found on CT, biopsy confirms - For chemo weekly with Dr. Ambriz - Rad/onc consult and radiation started, scheduled 5x/wk - On discharge, will need follow up appointment with Katina Grant to discuss modifications, as warranted in his chemo +/- radiation therapy Acute on chronic SOB/COPD/ANGEL - Strongly suspect chronic respiratory failure related to COPD -- requiring O2 24/7 and Bipap at any time of sleep to be safe - cannot safely discharge to home without noninvasive positive pressure ventilation. COPD appears severe enough that interruption in this care will likely lead to imminent decline or even possibly . Bi-level therapy with and w/o a rate would be ineffective as patient requires a volume targeted mode. Ventilation is required to decrease the work of breathing and improve pulmonary status. Mode/Settings: Max pressure: 12 PS Max: 5 FiO2: 30% - 2 step prior to discharge shows no need for home O2 - PO Steroid taper on discharge. Currently taking Pred 50 PO daily Thrombocytopenia - patient asymptomatic - Changed from Heparin to Lovenox on 04/09 - Platelets down to 38 on 04/11 and remain at this level on 04/12. No indication to transfuse at this time. Hopefully this is the jerome of his thrombocytopenia - Trend CBC Leukopenia - patient asymptomatic - WBC down from 2.89 to 0.75, with ANC dropped from 2.83 to 0.53 on 04/11. s/p 2 doses of Neupogen have resulted in improved white cell counts - Neutropenic precautions discontinued - Trend CBC Hypocalcemia - likely 2/2 tumor lysis syndrome. Patient asymptomatic - No indication for repletion at this time unless develops symptoms like tetany or cardiac arrhythmia. CKD 3B - Improved slightly today, appearing prerenal - ACEi and HCTZ have been held since admission. - Medical Van Driver 1.27, stable - Suspect cor pulmonale / pulmonary HTN is what led to him appearing swollen despite also appearing intravascular volume depleted - Patient appears volume overloaded. IVF discontinued. IV Lasix ordered - should assist with both fluid status and potassium levels. PO Bumex on discharge. Hyperglycemia, T2DM - Improving. Continue to follow on insulins with steroids - Titrating, decreased Lantus BID dose to 12 units (on 04/09) since slightly lower sugars in morning and sometimes evening. Hypertension- Controlled - Discontinued ZEKE/thiazide, replaced with 5mg Norvasc daily. Hyperlipidemia - Continue atorvastatin 40mg daily CAD - ASA 81mg tab daily Tobacco abuse - Nicotine 21 mg patch TD QAM. Insomnia - Added Vistaril, tolerating. Can continue on DC DVT ppx - Heparin SQ 5000units Code: full Continued [facility] stay due to: other (lekopenic, thrombocytopenic) Discharge planning: home Resident Tracking Resident Involvement: Resident Care Provided Care Provided: Adult Hospital Medicine Assessment/Plan Resident Physician Supervision Note: I was present with Dr. Mcdaniel during the history and exam. I discussed the case with the resident and agree with the findings and plan as documented in the note. Any exceptions or clarifications are listed here. 76 y/o male h/o HTN, CKD, COPD w/ tobacco use and DMII p/w COPD exacerbation and SCLC. Pt states breathing comfortably and tolerating BIPAP well at night. Leukopenia improved, platelet count has yet to rebound. Would bear repeating in AM as patient will be unable to be discharged today 2/2 transport and BIPAP logistics. Has f/u tomorrow [facility]/ [facility]
[2017-04-12] MEDS: ALLOPURINOL 100 MG TAB PO SCH (08:47)
[2017-04-12] MEDS: ASPIRIN 81 MG ECTAB PO SCH (08:47)
[2017-04-12] MEDS: FUROSEMIDE INJ 40 MG in SYRINGE 0 ML IV SCH (08:47)
[2017-04-12] MEDS: ATORVASTATIN 40 MG TAB PO SCH (08:47)
[2017-04-12] MEDS: ENOXAPARIN 40 MG/0.4 ML SYR SQ SCH (08:48)
[2017-04-12] MEDS: AMLODIPINE BESYLATE 5 MG TAB PO SCH (08:48)
[2017-04-12] MEDS: INSULIN ASPART 100 UNITS/ML 3 ML PEN SC SCH ×4 (09:04→21:26)
[2017-04-12] MEDS: INSULIN GLARGINE SOLOSTAR 100 UNITS/ML 3 ML PEN SC SCH ×2 (09:05→21:25)
[2017-04-12] MEDS ORDERED: NRV5 PO ×2 (10:25)
[2017-04-12] MEDS ORDERED: ATR25 PO ×2 (10:25)
[2017-04-12] MEDS ORDERED: ALL100 PO ×2 (10:33)
--- NOTE | 2017-04-12 10:46 | HEME/ONC PROGRESS NOTE ---
DATE: 04/12/2017 FOLLOWUP ONCOLOGY INPATIENT PROGRESS NOTE DIAGNOSES: 1. Thrombocytopenia attributable to carboplatin toxicity. 2. Tumor lysis syndrome. 3. Limited stage small cell lung cancer. 4. Acute on chronic obstructive pulmonary disease. SUBJECTIVE: Giacomo was seen at bedside with primary team this morning. Serum chemistries for the most part have stabilized; however, his platelet count continues to falter, presently measuring 38. I believe this is most likely his jerome and hopefully platelets will begin heading towards normal. Clinically, Giacomo seems to be doing okay and primary team wishes to discharge him with close oncologic followup. I believe Dr. Ambriz has him arranged for appointment and possibly chemotherapy later on this week. Nursing reports no overnight concerns. PHYSICAL EXAMINATION: GENERAL: Giacomo is in no acute distress. VITAL SIGNS: Temperature 36.4, pulse 100, respiratory rate 20, blood pressure 145/92. SKIN: Without rash or lesion. HEENT: Oral mucosa without erythema or ulceration. NECK: Supple. HEART: Regular rate and rhythm. No clicks, rubs, murmurs or gallops. LUNGS: Clear to auscultation bilaterally. ABDOMEN: Soft, nontender, nondistended, without palpable hepatosplenomegaly. EXTREMITIES: Trace peripheral edema. NEUROLOGIC: Grossly intact. LABORATORY DATA: WBC count 1560, hemoglobin 10, platelet count 38,000; absolute neutrophil count 1250. Chemistries: Sodium 137, potassium 4.6, chloride 102, carbon dioxide 27, BUN 51, and creatinine 1.27. IMPRESSION: 1. Thrombocytopenia secondary to carboplatin toxicity. 2. Tumor lysis syndrome. 3. Acute on chronic obstructive pulmonary disease. 4. Limited stage small cell lung cancer. PLAN: Mr. Jordan will most likely be discharged home today. He is scheduled to [facility] to see Dr. Ambriz later on this week and most likely will require modification of his current chemotherapy dose. I believe his platelets have nadired at 38,000, hopefully will start to trend upward. I agree with primary team. There is no oncologic reason to keep Mr. Jordan any further. We will see him in clinic sometime this week. Thank you for assisting us in the care of this very pleasant gentleman. [facility]
--- NOTE | 2017-04-12 11:58 | Nephrology Progress Note ---
Nephrology Progress Note Date of Service Apr 12, 2017. Chief Complaint Follow-up for recent acute kidney injury with tumor lysis syndrome Subjective Mr. stubbs was seen and examined in his room this morning. Has been otherwise feeling well. Renal function remained stable creatinine 1.2. Electrolyte abnormality improved, potassium normalized. Blood pressure relatively stable. Remained net negative however continues to be volume overloaded. Review of Systems A complete review of systems was performed. Pertinent positives are noted above. All other systems are negative. Vital Signs Last 8 Hrs Date Time Temp Pulse Resp B/P (MAP) Pulse Ox O2 Delivery O2 Flow Rate FiO2 04/12/17 07:36 36.4 100 20 145/92 (109) 99 04/12/17 07:10 96 30 04/12/17 07:09 108 20 96 Nasal Cannula 4.0 04/12/17 04:00 36.4 96 20 162/54 (90) 92 Room Air Last Recorded Weight Weight (Kilograms): 135.300 Physical Exam GENERAL: Elderly , AAA x 3, morbidly obese, not in any distress. NECK: Supple, no JVD. RESPIRATORY: Normal breathing efforts, no accessory muscle use, clear to auscultation bilaterally, no wheezes or rales. CARDIOVASCULAR: S1, S2 normal, rate rhythm regular. EXTREMITY: 1 + both upper and lower extremity edema NEURO: speech fluent. PSYCHIATRY: Normal mood and judgment Family History Negative for CKD / ESRD Social History Occupation: retired Retired. Current smoker Laboratory Results Past 24 Hours 04/12/17 05:25 Red Blood Count 3.22, Mean Corpuscular Volume 94.1, Mean Corpuscular Hemoglobin 31.1, Mean Corpuscular Hemoglobin Concent 33.0, Mean Platelet Volume 10.9, Neutrophils (%) (Auto) 80.2, Lymphocytes (%) (Auto) 16.0, Monocytes (%) (Auto) 1.9, Eosinophils (%) (Auto) 1.3, Basophils (%) (Auto) 0.0, Neutrophils # (Auto) 1.25, Lymphocytes # (Auto) 0.25, Monocytes # (Auto) 0.03, Eosinophils # (Auto) 0.02, Basophils # (Auto) 0.00 04/12/17 05:25 Test 04/11/17 11:42 04/11/17 16:44 04/11/17 20:40 04/12/17 05:25 Bedside Glucose 167 mg/dl (70-99) 267 mg/dl (70-99) 220 mg/dl (70-99) White Blood Count 1.56 K/uL (4.8-10.8) Red Blood Count 3.22 M/uL (4.7-6.1) Hemoglobin 10.0 g/dL (14.0-18.0) Hematocrit 30.3 % (42-52) Mean Corpuscular Volume 94.1 fL (80-100) Mean Corpuscular Hemoglobin 31.1 pg (25-34) Mean Corpuscular Hemoglobin Concent 33.0 g/dl (32-36) Platelet Count 38 K/uL (130-400) Mean Platelet Volume 10.9 fL (7.4-10.4) Neutrophils (%) (Auto) 80.2 % Lymphocytes (%) (Auto) 16.0 % Monocytes (%) (Auto) 1.9 % Eosinophils (%) (Auto) 1.3 % Basophils (%) (Auto) 0.0 % Neutrophils # (Auto) 1.25 K/uL (1.4-6.5) Lymphocytes # (Auto) 0.25 K/uL (1.2-3.4) Monocytes # (Auto) 0.03 K/uL (0.11-0.59) Eosinophils # (Auto) 0.02 K/uL (0-0.5) Basophils # (Auto) 0.00 K/uL (0-0.2) RDW Standard Deviation 45.3 fL (36.4-46.3) RDW Coefficient of Variation 13.1 % (11.5-14.5) Immature Granulocyte % (Auto) 0.6 % Immature Granulocyte # (Auto) 0.01 K/uL (0.00-0.02) Dohle Bodies 1+ Anion Gap 8.0 mmol/L (3-11) Est Creatinine Clear Calc Drug Dose 67.6 ml/min Estimated GFR () 63.6 Estimated GFR (Non- 54.9 BUN/Creatinine Ratio 40.3 (10-20) Uric Acid 4.9 mg/dl (2.6-7.2) Calcium Level 7.7 mg/dl (8.5-10.1) Phosphorus Level 2.8 mg/dl (2.5-4.9) Test 3/4/18 07:47 Bedside Glucose 96 mg/dl (70-99) Allergies Coded Allergies: No Known Allergies (Verified , 03/28/17) Medications Current Inpatient Medications Medications (Trade) Dose Ordered Sig/Michel Route Start Time Stop Time Status Last Admin Dose Admin Acetaminophen (Tylenol Tab) 650 mg Q4H PRN PO 03/28/17 23:45 04/27/17 23:44 Al Hydrox/Mg Hydrox/Simethicone (Maalox Max Susp) 15 ml Q4H PRN PO 03/28/17 23:45 04/27/17 23:44 Magnesium Hydroxide (Milk Of Magnesia Susp) 30 ml Q6H PRN PO 03/28/17 23:45 04/27/17 23:44 Polyethylene (Miralax Powder Packet) 17 gm DAILY PRN PO 03/28/17 23:45 04/27/17 23:44 Ondansetron HCl (Zofran Inj) 4 mg Q6H PRN IV 03/28/17 23:45 04/27/17 23:44 Albuterol/ Ipratropium (Duoneb) 3 ml QIDR INH 03/29/17 08:00 04/28/17 07:59 04/12/17 07:09 3 ML Atorvastatin Calcium (Lipitor Tab) 40 mg DAILY PO 03/29/17 09:00 04/28/17 08:59 04/12/17 08:47 40 MG Glucose (Glucose 40% Gel) 15-30 GRAMS 15 GRAMS... UD PRN PO 03/29/17 00:15 04/28/17 00:14 Glucose (Glucose Chew Tab) 4-8 Tablets 4 Tabl... UD PRN PO 03/29/17 00:15 04/28/17 00:14 Dextrose (Dextrose 50% 50ML Syringe) 25-50ML OF 50% DW IV FOR... UD PRN IV 03/29/17 00:15 04/28/17 00:14 04/05/17 06:38 50 ML Glucagon (Glucagon Inj) 1 mg UD PRN SQ 03/29/17 00:15 04/28/17 00:14 Nitroglycerin (Nitrostat Tab) 0.4 mg PRN PRN SL 03/29/17 00:15 04/28/17 00:14 Miscellaneous (Iv Fluids Completed) 1 ea PRN PRN N/A 03/29/17 00:30 03/29/18 00:29 Nicotine (Nicoderm Cq 21MG Patch) 1 patch QAM TD 03/29/17 09:00 04/28/17 08:59 04/02/17 08:38 1 PATCH Miscellaneous (Remove Nicoderm Patch) 1 ea HS N/A 03/29/17 21:00 04/28/17 20:59 04/03/17 21:00 1 EA Budesonide/ Formoterol Fumarate (Symbicort 160/ 4.5 Inh) 2 puffs BID INH 03/30/17 09:00 04/29/17 08:59 04/12/17 08:45 2 PUFFS Tiotropium [place] (Spiriva Handihaler Inhaler) 2 puff QAM INH 03/30/17 09:00 04/29/17 08:59 04/12/17 08:45 2 PUFF Morphine Sulfate (MoRPHine SULFATE INJ) 2 mg Q3H PRN IV 03/30/17 15:15 04/13/17 15:14 04/11/17 21:29 2 MG Oxycodone HCl (Roxicodone Immediate Rel Tab) 5 mg Q4H PRN PO 03/30/17 15:15 04/13/17 15:14 04/01/17 01:55 5 MG Insulin Aspart (novoLOG ASPART) SLIDING SCALE G... ACHS SC 03/31/17 06:45 04/30/17 00:00 04/12/17 09:04 20 UNITS Aspirin (Ecotrin Tab) 81 mg QAM PO 04/04/17 09:00 05/04/17 08:59 04/12/17 08:47 81 MG Prednisone (PredniSONE TAB) 50 mg DAILY PO 04/06/17 08:00 05/06/17 07:59 04/12/17 08:47 50 MG Heparin Sodium (Porcine) (Heparin 10 Unit/ ml 5 ml Flush) 5 ml PRN PRN FLUSH 04/06/17 08:15 05/06/17 08:14 04/09/17 21:32 5 ML Amlodipine Besylate (Norvasc Tab) 5 mg QAM PO 04/07/17 08:00 05/07/17 07:59 04/12/17 08:48 5 MG Heparin Sodium (Porcine) (Heparin 100 Unit/ml 5ml Flush) 5 ml PRN PRN IV 04/07/17 07:45 05/07/17 07:44 04/12/17 09:23 5 ML Allopurinol (Zyloprim Tab) 200 mg DAILY PO 04/08/17 08:00 05/08/17 07:59 04/12/17 08:47 200 MG Hydroxyzine HCl (Vistaril Tab) 25 mg HSZ PRN PO 04/07/17 13:30 05/07/17 13:29 04/09/17 21:28 25 MG Enoxaparin Sodium (Lovenox Inj) 40 mg QAM SQ 04/09/17 08:00 05/09/17 07:59 04/12/17 08:48 40 MG Insulin Glargine (Lantus Solostar Pen) 12 units BID SC 04/09/17 20:00 05/08/17 07:59 04/12/17 09:05 12 UNITS Lorazepam (Ativan Inj) 0.5 mg ONE PRN IV 04/10/17 08:00 05/10/17 07:59 Lorazepam 0.5 mg/ Syringe 1 ml @ 1 mls/min ONE PRN IV 04/10/17 08:30 05/10/17 08:29 Filgrastim (Neupogen Sq) 480 mcg DAILY SC 04/12/17 08:00 04/13/17 07:59 04/12/17 09:07 480 MCG Furosemide 40 mg/ Syringe 4 ml @ 4 mls/min DAILY@0800 IV 04/12/17 08:00 05/12/17 07:59 04/12/17 08:47 4 MLS/MIN Impression (1) Tumor lysis syndrome (2) Chronic kidney disease (3) Small cell lung carcinoma (4) COPD (chronic obstructive pulmonary disease) Recommendations -- change to Lasix 20 milligram daily on discharge as GFR is pretty good -- Continue Allopurinol 200 mg daily -- Monitor PRP, UA, Ca, PO4 daily --okay to be discharged nephrology standpoint, suggest outpatient follow-up with Dr. Jacobs in next few weeks Will sign off.
[2017-04-12] MEDS ORDERED: NURSING VERBAL MED ORDER ONE (17:30)
[2017-04-12] MEDS ORDERED: LORAZEPAM INJ 0.5 MG in SYRINGE 0.75 ML IV SCH (21:00)
[2017-04-12] MEDS: hydrOXYzine HCL 25 MG TAB PO PRN (23:55)
[2017-04-13] VITALS (10 sets, daily range): BP systolic 124–144; BP diastolic 61–75; PULSE 92–102; TEMP 36.4–36.7; O2SAT 92–100
[2017-04-13 06:16] LABS: CALCIUM 7.6 mg/dl (8.5-10.1); CREATININE 1.12 mg/dl (0.60-1.40); POTASSIUM 4.5 mmol/L (3.5-5.1)
[2017-04-13 06:18] LABS: URIC ACID 4.7 mg/dl (2.6-7.2)
[2017-04-13 06:39] LABS: HEMATOCRIT 29.3 % (42-52); HEMOGLOBIN 9.8 g/dL (14.0-18.0); MEAN CORPUSCULAR HEMOGLOBIN 31.1 pg (25-34); MEAN CORPUSCULAR HGB CONC 33.4 g/dl (32-36); MEAN PLATELET VOLUME 11.2 fL (7.4-10.4); PLATELET COUNT 34 K/uL (130-400); RED CELL DISTRIBUTION WIDTH CV 13.2 % (11.5-14.5); RED CELL DISTRIBUTION WIDTH SD 44.7 fL (36.4-46.3); WHITE BLOOD COUNT 0.72 K/uL (4.8-10.8)
[2017-04-13 06:42] LABS: EOS % 2.8 %; EOS ABS # 0.02 K/uL (0-0.5); IG# 0.07 K/uL (0.00-0.02); LYMPH % 27.8 %; MONO % 2.8 %; MONO ABS # 0.02 K/uL (0.11-0.59); NEUT % 56.9 %; NEUT ABS # 0.41 K/uL (1.4-6.5)
[2017-04-13] MEDS: ALBUT/IPRATROP 3MG/0.5MG NEB 3 ML VIAL INH SCH ×3 (07:00→15:06)
[2017-04-13] MEDS: ATORVASTATIN 40 MG TAB PO SCH (08:31)
[2017-04-13] MEDS: TIOTROPIUM BROMIDE 5 PUFF/90 MCG INH INH SCH (08:31)
[2017-04-13] MEDS: AMLODIPINE BESYLATE 5 MG TAB PO SCH (08:32)
[2017-04-13] MEDS: BUDESONIDE/FORMOTEROL FUMARATE 160/4.5 60 PUFFS/INHALER INH SCH (08:32)
[2017-04-13] MEDS: ALLOPURINOL 100 MG TAB PO SCH (08:32)
[2017-04-13] MEDS: ASPIRIN 81 MG ECTAB PO SCH (08:32)
[2017-04-13] MEDS: FUROSEMIDE INJ 40 MG in SYRINGE 0 ML IV SCH (08:33)
[2017-04-13] MEDS: ENOXAPARIN 40 MG/0.4 ML SYR SQ SCH (08:33)
[2017-04-13] MEDS: INSULIN ASPART 100 UNITS/ML 3 ML PEN SC SCH ×2 (08:42→12:45)
[2017-04-13] MEDS: INSULIN GLARGINE SOLOSTAR 100 UNITS/ML 3 ML PEN SC SCH (08:43)
[2017-04-13] MEDS: NICOTINE 21 MG/24 HR TDSY TD SCH (08:43)
[2017-04-13] MEDS ORDERED: OXGN ×2 (11:00)
[2017-04-13] MEDS ORDERED: FURO-85 PO ×2 (11:18)
--- NOTE | 2017-04-13 11:22 | Discharge Summary ---
Discharge Summary Date of Service Apr 13, 2017. Discharge Summary Admission Date: Mar 29, 2017 at 00:10 Discharge Date: Apr 13, 2017 Discharge Disposition: Home with services Principal Diagnosis: Lung Cancer, Dyspnea Problems/Secondary Diagnoses: Tumor Lysis Syndrome Immunizations: Have You Had Influenza Vaccine: Yes History of Tetanus Vaccine?: Yes Tetanus Immunization Date: Feb 22, 2004 History of Pneumococcal: Yes Pneumococcal Date: Feb 21, 2007 History of Hepatitis B Vaccine: No Procedures: - MRI compatible port through the left cephalic placed by Dr Wood on - Biopsy of lung showing small cell Ca through video mediastinoscopy by Dr Davenport on 03/30/17 Medication Reconciliation New Medications: Albuterol Hfa (Ventolin Hfa) 200 Puffs/23653 Mcg Aers 2 PUFFS INH Q4H, #1 INHALER 3 Refills Furosemide (Lasix) 20 Mg Tab 1 TAB PO DAILY for 30 Days, #30 TAB 0 Refills Home O2 Therapy (Oxygen) Gas 4 LITERS NA CONTINOUS for 90 Days, BTL For home and portable use Nicotine (Nicoderm Cq 21MG Patch) 21 Mg/24 Hr Dis 1 PATCH TD DAILY for 30 Days, #30 PATCH Allopurinol (Allopurinol) 100 Mg Tab 200 MG PO DAILY for 30 Days, #30 TAB Amlodipine Besylate (Amlodipine Besylate) 5 Mg Tab 5 MG PO QAM, #30 TAB Budesonide/Formoterol Fumarate (Symbicort 160-4.5 Mcg/Act) 60 Puffs/Inhaler Aero 2 PUFFS INH BID for 30 Days, #1 INHALER 3 Refills Hydroxyzine HCl (Hydroxyzine HCl) 25 Mg Tab 25 MG PO HSZ PRN for Insomnia, #16 TAB Tiotropium [place] (Spiriva Handihaler) 5 Puff/90 Mcg Aerp 2 PUFF INH QAM for 30 Days, #1 INHALER 1 Refill Continued Medications: Aspirin (Aspirin Ec) 81 Mg Tab 81 MG PO DAILY Atorvastatin (Lipitor) 40 Mg Tab 40 MG PO DAILY, TAB Cholecalciferol (Vitamin D3) 1,000 Unit Tab 1 TAB PO DAILY, TAB Insulin Human Isophan/Regular (Novolin 70/30) Inj 95 UNITS SC BID Discontinued Medications: Lisinopril/Hctz (Zestoretic 20MG/25MG) Tab 1 TAB PO DAILY, TAB Discharge Exam Review of Systems: Constitutional: No fever, No chills, No sweats, No weight loss, No weakness Eyes: No worsening of vision ENT: No hearing loss Respiratory: No cough, No sputum, No wheezing, No shortness of breath, No dyspnea on exertion, No dyspnea at rest Cardiovascular: No chest pain, No orthopnea Abdomen: No pain, No nausea, No vomiting Musculoskeletal: No joint pain Genitourinary - Male: No hematuria, No dysuria Neurologic: No memory loss, No paralysis Psychiatric: No depression symptoms Endocrine: No fatigue Hematologic / Lymphatic: No abnormal bleeding/bruising Integumentary: No rash Physical Exam: General Appearance: WD/WN, no apparent distress, + obese Eyes: normal inspection, PERRL ENT: hearing grossly normal Neck: supple, no JVD Respiratory/Chest: lungs clear, normal breath sounds, no respiratory distress Cardiovascular: regular rate, rhythm, normal peripheral pulses Abdomen / GI: non tender, soft Extremities: no calf tenderness, no pedal edema Neurologic/Psychiatric: alert, normal mood/affect, oriented x 3 Skin: no rash Hospital Course HPI Per admitting provider: The patient is a 2 pack daily smoker and states he quit 3 days ago. However, he states that for the past few years he has a persistent shortness of breath that is worse with exertion. He feels wheezy. However this past week, his shortness of breath has significantly worsened and he is now having a dry cough. He denies every being diagnosed with obstructive lung disease. The patient denies chest pain, palpitations, orthopnea/nocturnal dyspnea or lower extremity swelling. The patient has not had fevers, chills or sweats. He reports normal intake. There is no reported urinary symptoms of dysuria, frequency or urgency. There are no symptoms of diarrhea, melena or rectal bleeding. The patient denies abdominal pain, nausea, or vomiting. In the ER, the patient had a CT scan of the lung revealing a right apical mass with lymphadenopathy which was concerning for malignancy. The patient wanted to go home but daughter was very concerned that if he were to go home without plan for work-up he would be lost to follow-up. The patient was also hypoxic, require 3 L by nasal cannula, whereas he flores snot require any oxygen at home. The decision was made to admit the patient for further evaluation and treatment. HOSPITAL COURSE: The patients had a hospital stay from 03/28/17 to 04/13/17. During this time, the diagnosis of metastatic small cell lung cancer was made, a port was placed, and chemotherapy was started. He was found to have tumor lysis syndrome, which resolved. Small cell lung cancer - Pt was followed by Oncology during admission - Follow up was arranged with Dr. Ambriz - Radiation was also started during admission Tumor Lysis Syndrome - Was followed by Nephrology & Oncology - Was given Kayexelate, IV Furosemide, and electrolytes resolved Acute on chronic shortness of breath - Pt to go back to baseline of 4L oxygen continuously with BiPAP at night - Two step completed during admission: Mode/Settings: Max pressure: 12 PS Max: 5 FiO2: 30% - 2 step prior to discharge shows no need for home O2 - PO Steroid taper on discharge - this was not in original DC med list, but I sent in taper and spoke with the pts daughter at his home address, for him to greens picker prednisone 40mg x 3 days starting tomorrow then decrease by 10mg every 3 days until stop. Thrombocytopenia - Changed from Heparin to Lovenox on 04/09 - Platelets down to 38 on 04/11 and remain at this level on 04/12. Leukopenia - WBC down from 2.89 to 0.75, with ANC dropped from 2.83 to 0.53 on 04/11. s/p 2 doses of Neupogen have resulted in improved white cell counts - Neutropenic precautions discontinued - Trend CBC Hypocalcemia - likely 2/2 tumor lysis syndrome. Patient asymptomatic - No indication for repletion at this time unless develops symptoms like tetany or cardiac arrhythmia. CKD 3B - Improved slightly today, appearing prerenal - ACEi and HCTZ have been held since admission. - Transition Program Manager 1.12 on discharge Hyperglycemia, T2DM - Improving. Continue to follow on insulins with steroids Hypertension- Controlled - Discontinued ZEKE/thiazide, replaced with 5mg Norvasc daily. Hyperlipidemia - Continue atorvastatin 40mg daily CAD - ASA 81mg tab daily Tobacco abuse - Nicotine 21 mg patch TD QAM. Insomnia - Added Vistaril, tolerating. Can continue on DC DVT ppx - Heparin SQ 5000units Code status: Full Dispo: Discharged home with home health services meeting him at his house to set up BiPAP, daughter also present at time of discharge Resident Physician Supervision Note: I interviewed and examined the patient. Discussed with Dr. Rollins and agree with findings and plan as documented in the note. Any exceptions or clarifications are listed here: None There was some concern for tumor lysis syndrome he however did get through that which is fluids and allopurinol his other chronic health conditions of COPD tobacco abuse were stable he does have chronic kidney disease and have mild hyperkalemia during his hospital stay his diabetes was acceptably managed Vital signs show temperature 36 4 pulse 101 respiration rate 20 BP 140/75 His VATS scar was well-healed right above the sternum, his lungs were clear with decreased breath sounds at the bases his heart was regular Patient seen prior to discharge she was somewhat somnolent but agreed that he is able to go home is recently diagnosed with small cell lung cancer received 1 round of chemotherapy Recent diagnosis of small cell lung cancer and sleep apnea. We are sure by case management his family that his BiPAP was available at home. [facility] of his small cell carcinoma of the lung Documented By: Wong Anna Total Time Spent: Greater than 30 minutes This includes examination of the patient, discharge planning, medication reconciliation, and communication with other providers. Discharge Instructions Please refer to the electronic Patient Visit Report (Discharge Instructions) for additional information. Follow-Up "Please, follow up with Dr. Valdez on April 16 at 10:30 am. *If you need to change this appointment, call the office at [phone]. Please, follow up with Dr. Ambriz - his nurse will call you directly to schedule this appointment. They are aware that you were in the hospital and discharged today. *If you have any questions, call the clinic at [phone]." Additional Copies To Juan Ambriz MD
--- NOTE | 2017-04-13 11:22 | Discharge Instructions ---
Discharge Instructions Date of Service Apr 13, 2017. Admission Reason for Admission: Lung Mass Discharge Discharge Diagnosis / Problem: Shortness of breath Discharge Goals Goal(s): Improve disease control Activity Recommendations Activity Limitations: per Instructions/Follow-up section Lifting Limitations: no more than 10 pounds Exercise/Sports Limitations: as tolerated Shower/Bathe: no limitations . Instructions / Follow-Up Instructions / Follow-Up Use the oxygen continuously but use BiPAP when you take a nap. Follow up with DR WAYNE and DR FITZGERALD When you go home please do the following: - Use the medication Lasix 20mg daily until otherwise told by Dr Jacobs. - Please take Albuterol inhaler 2 puffs every 4 hours for the first 2 days, then scale back and take it every 4 hours ONLY NEEDED. If you become suddenly short of breath and 2-4 puffs every 20 minutes over an hour does not help, you need to contact a physician or go to the emergency department - Please start taking Spiriva and Symbicort daily as directed. These are known as 'controller' medications and will keep your symptoms at bay even when you are well. THESE MEDICATIONS NEED TO BE TAKEN DAILY, REGARDLESS OF WHETHER YOU ARE SICK OR WELL. - We will give you Nicotine patches to help you. We are delighted that you have made the decision to quit smoking. If your symptoms fail to improve, acutely worsen, please seek medical attention immediately by either calling your primary care provider or going to your nearest emergency department. Your pathology results are below: A. LYMPH NODE, R4 (BIOPSY): 1. METASTATIC SMALL CELL CARCINOMA IS SEEN. B. LYMPH NODE, LEVEL 2 (BIOPSY): 1. METASTATIC SMALL CELL CARCINOMA IS SEEN. Current Hospital Diet Patient's current hospital diet: Diabetes Type 2 Diet, AHA Diet (Heart Healthy) Discharge Diet Recommended Diet: Regular Diet, Diabetes Type 2 Diet Procedures Procedures Performed: A-port (MRI) placement, left cephalic Pending Studies Studies pending at discharge: no Laboratory Results Hemoglobin A1c Test 03/30/17 05:28 Range/Units Estimated Average Glucose 200 mg/dl Hemoglobin A1c 8.6 H 4.5-5.6 % Medical Emergencies . Who to Call and When: Medical Emergencies: If at any time you feel your situation is an emergency, please call 911 immediately. . Non-Emergent Contact Non-Emergency issues call your: Primary Care Provider, Oncologist . . "Provider Documentation" section prepared by Sandra Rollins. .
[2017-04-13] MEDS ORDERED: PRED10TA PO ×2 (17:11)
--- NOTE | 2017-04-21 17:20 | Radiation Oncology Consult ---
Radiation Oncology Consult Date / Reason Apr 02, 2017 Date / Reason Apr 02, 2017. Dr. Angelo has been kind enough to ask us to see his patient Mr. Giacomo Jordan for evaluation and discussion of the role of radiation as part of his combined modality treatment for his recently diagnosed limited stage small cell carcinoma the lung. Diagnosis (1) Small cell lung carcinoma Permanent Comment: This patient has a bulky but limited stage small cell carcinoma the lung Last Edited By: Edson Fernandes on Apr 02, 2017 14:06 Additional Notes: This patient has what appears to be a bulky limited stage small cell carcinoma the lung. At present there is no evidence of dissemination. However he still needs to undergo a examination of the head. He is reluctant to undergo an MRI due to claustrophobia and so we will recommend proceeding with a CT scan of the head instead. There may also be a PET/CT scan scheduled as an outpatient which is pending. History of Present Illness Mr. Jordan is a 76-year-old male who has a long smoking history starting before the age of 11. He averaged at least 2 packs a day for over 60 years. The patient continued to smoke up until his time of admission. He recently noted increasing difficulty breathing with shortness of breath especially lying down. He noted worsening of his dyspnea upon exertion and subsequently at rest. He denied any chest pain, productive cough, fevers or hemoptysis. He is also developed marked edema of his legs but is noted no decrease in weight. 03/28/2017. CT of the chest to rule out PE. This revealed a large right suprahilar mass with mediastinal extension measuring 7.3 x 5.2 cm. This mass extends across the midline and likely abuts the anterior aspect of the adrienne. The mass results in significant narrowing of several right upper lobe bronchi. There are multiple enlarged mediastinal lymph nodes including a 2.8 cm left upper mediastinal lymph node, a 1.5 cm right upper mediastinal lymph node and a 2.3 cm prevascular lymph node. There is also suggestion of possible compression and erosion into the superior vena cava. 03/29/2017. Patient is seen in referral by Dr. Abdirahman Davenport. He performed a video mediastinoscopy on 03/30/2017. Lymph node are for biopsy was positive for metastatic small cell carcinoma. Lymph nodes level II biopsy positive for metastatic small cell carcinoma. Case [id number]. 04/01/2017. CT scan of the abdomen and pelvis showed no evidence of metastatic disease. 04/01/2017. Patient seen by Dr. Juan Ambriz. His recommendation is to consider treating with concomitant chemoradiation. 04/02/2017. Patient seen in referral by radiation oncology. Past History Past Medical/Surgical History: Diabetes Type 2, High Cholesterol Social History Smoking Status: Current Every Day Smoker Hx Tobacco Use In Past Year?: Yes (2PPD. NONE IN LAST 3 DAYS) Do You Dip or Chew Tobacco: No Hx Alcohol Use: No Hx Substance Use : No Allergies Coded Allergies: No Known Allergies (Verified , 03/28/17) Home Medications Scheduled Albuterol Hfa (Ventolin Hfa), 2 PUFFS INH Q4H Allopurinol (Allopurinol), 200 MG PO DAILY Amlodipine Besylate (Amlodipine Besylate), 5 MG PO QAM Aspirin (Aspirin Ec), 81 MG PO DAILY Atorvastatin (Lipitor), 40 MG PO DAILY Budesonide/Formoterol Fumarate (Symbicort 160-4.5 Mcg/Act), 2 PUFFS INH BID Cholecalciferol (Vitamin D3), 1 TAB PO DAILY Furosemide (Lasix), 1 TAB PO DAILY Home O2 Therapy (Oxygen), 4 LITERS NA CONTINOUS Insulin Human Isophan/Regular (Novolin 70/30), 95 UNITS SC BID Nicotine (Nicoderm Cq 21MG Patch), 1 PATCH TD DAILY Prednisone (Prednisone), 10 MG PO DAILY Tiotropium Flushing (Spiriva Handihaler), 2 PUFF INH QAM Scheduled PRN Hydroxyzine HCl (Hydroxyzine HCl), 25 MG PO HSZ PRN for Insomnia Review of Systems Ear/Hearing: Ear Side: Bilateral Hearing Ability: Normal Hearing Aid: None Edema: Present?: Yes Location Body Site Modifier: Bilateral Type: Non-pitting Degree: 1+ Comment: "generalized edema " Physical Exam ECOG Performance Status: 3 Height: 5 (Feet) 8.00 (Inches) 172.7 (Centimeters) 1.7272 (Meters) Weight: 300 (Pounds) 4.3 (Ounces) 136.200 (Kilograms) 638249.000 (Grams) General Appearance: WD/WN, + mild distress ( (patient is experiencing mild respiratory discomfort while lying flat with oxygen at 4 L.)) Head: normocephalic, atraumatic Eyes: normal inspection, EOMI, sclerae normal ENT: pharynx normal Neck: supple, no adenopathy Respiratory/Chest: chest non-tender, lungs clear, normal breath sounds, + wheezing (his wheezing is mild end expiratory.)) Cardiovascular: regular rate, rhythm Abdomen/GI: soft, no organomegaly Extremities: + pedal edema 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 He is anxious lying on his back especially if he cannot move. He denies any pain at this time. For that reason no pain management plan is required at this time. Laboratory Laboratory Results: were reviewed, and pertinent findings noted in HPI Pathology Pathology Results: were reviewed, and pertinent findings noted in [facility] Imaging Imaging Studies: were reviewed, and pertinent findings noted in HPI Treatment Plan We plan to treat the patient with concomitant chemoradiation. The radiation field will start with a 4 field box to encompass the area of disease. We will treat this for 10 fractions and then reevaluate and attempt to proceed with an IMRT treatment plan for the final 20 fractions. He will therefore have a total of 30 fractions at 200 cGy per fraction for a planned total dose of 60 Gy. Assessment & Recommendations In summary Mr. Jordan is a 76-year-old male with a long smoking history. He is reasonably presented with increasing dyspnea and shortness of breath. Examination showed a large right upper lobe lung mass extending into the mediastinum with enlarged mediastinal nodes. Biopsy of the nodes revealed a small cell carcinoma. CT scan of the abdomen and pelvis showed no evidence of dissemination. Evaluation of the head is pending and PET scan is pending. I met with the patient and discussed the role of concomitant chemoradiation. The patient wanted to wait to make a decision until his daughter and brother were present. I saw the patient in our department with his daughter and son present. I reviewed with him the treatment plan of 30 fractions over 6-1/2 weeks. I then reviewed with him the potential risks and side effects of a course of chemoradiation. The patient was given time for appropriate questions and these were answered to his satisfaction. The consent form was presented to the patient. The risks were reviewed and initialed and the consent form was read signed and witnessed. We proceeded with a CT simulation with the patient in the treatment position. He has some difficulty lying flat and we had elevated his head. Despite this the was very anxious but we were able to complete the simulation. We then proceeded to outline the tumor and proceed with the treatment plan. Once the plan was reviewed and approved we then proceeded to deliver his first treatment today. We will continue with the treatment tomorrow. If the patient is discharged over the weekend he can start as an outpatient on Thursday otherwise he will be brought down as an inpatient on Thursday. Thank you for allowing us to participate in the care of this patient. This chart was completed in part utilizing [employer] Speech Voice Recognition software. Attempts were made to minimize the grammatical errors, random word insertions, pronoun errors and incomplete sentences. Any formal questions or concerns about the content, text or information contained within the body of this dictation should be directly addressed to the provider for clarification. Edson Fernandes MD Department of Radiation Oncology [facility] Total Time (Attending) I spent overall 40 minutes in discussion with the patient and later with the patient, his daughter and brother. I spent 20 minutes reviewing his scans and his chart and in preparation of this document. Copy To Anil Valdez M.D.; Juan Ambriz MD
== END 2017-04-13 16:45 | disposition home or self-care (01) | DRG 166 ==
LOC: C.EDB 17:13 → EDBEDREQ 03-29 00:06 → CANRESERV 03-29 00:09 → ENRESERV 03-29 00:09 → C.MED 03-29 00:10 → EDBEDREQSVC 03-29 00:18 → ENRESERV 03-29 01:23 → C.MSICU 03-30 16:00 → ENRESERV 04-01 09:35 → C.2T 04-01 09:54 → ENRESERV 04-02 20:33 → C.4E 04-02 21:11 → ENRESERV 04-03 19:08 → C.2T 04-03 20:14 → C.4E 04-05 12:22 → ENRESERV 04-05 12:54
PROVIDERS: ADMIT Student in an Organized Health Care Education/Training Program; ATTEND Internal Medicine
PROC: 5A1945Z Respiratory Ventilation, 24-96 Consecutive Hours (ICD-10-PCS; 2017-03-30)
PROC: 07B74ZX Excision of Thorax Lymphatic, Percutaneous Endoscopic Approach, Diagnostic (ICD-10-PCS; principal; 2017-03-30 11:00)
PROC: 05HF33Z Insertion of Infusion Device into Left Cephalic Vein, Percutaneous Approach (ICD-10-PCS; 2017-04-03)
DX: C34.91 Malignant neoplasm of unspecified part of right bronchus or lung (principal); J96.01 Acute respiratory failure with hypoxia; E88.3 Tumor lysis syndrome; J96.02 Acute respiratory failure with hypercapnia; J44.1 Chronic obstructive pulmonary disease with (acute) exacerbation; Z68.42 Body mass index [BMI] 45.0-49.9, adult; E66.2 Morbid (severe) obesity with alveolar hypoventilation; F17.200 Nicotine dependence, unspecified, uncomplicated; Z79.82 Long term (current) use of aspirin; Z79.4 Long term (current) use of insulin; I10 Essential (primary) hypertension; E78.5 Hyperlipidemia, unspecified; R91.8 Other nonspecific abnormal finding of lung field; N18.3 Chronic kidney disease, stage 3 (moderate); E11.65 Type 2 diabetes mellitus with hyperglycemia; E11.21 Type 2 diabetes mellitus with diabetic nephropathy; E55.9 Vitamin D deficiency, unspecified; E78.00 Pure hypercholesterolemia, unspecified; R01.1 Cardiac murmur, unspecified; E21.3 Hyperparathyroidism, unspecified; D64.9 Anemia, unspecified

== ENCOUNTER 2017-04-14 17:37 | Inpatient (IN) | payer BC, OTHER ==
[~2017-04-14] VITALS: Ht 172.7 cm; Wt 126.2 kg
[~2017-04-14 17:37] MED LIST changes: +ALL100 PO; +ASPI81TA28 PO; +ATOR-24 PO; +ATR25 PO; +CHOL1000 PO; +FURO-85 PO; +INSU70IN2 SC; +LISI-788 PO; +NICO21DI35 TD; +NRV5 PO; +OXGN; +PRED10TA PO; +SPRIN INH; +SYMIN INH; +VNTHFA/IN INH
[2017-04-14] MEDS ORDERED: SODIUM CHLORIDE 0.9% 1000ML 1,000 ML IV STA (17:53)
[2017-04-14 19:02] LABS: HEMATOCRIT 30.4 % (42-52); HEMOGLOBIN 10.4 g/dL (14.0-18.0); MEAN CELL VOLUME 91.6 fL (80-100); MEAN CORPUSCULAR HEMOGLOBIN 31.3 pg (25-34); MEAN CORPUSCULAR HGB CONC 34.2 g/dl (32-36); MEAN PLATELET VOLUME 10.2 fL (7.4-10.4); PLATELET COUNT 36 K/uL (130-400); WHITE BLOOD COUNT 0.17 K/uL (4.8-10.8)
[2017-04-14 19:05] LABS: INR 1.1 (0.9-1.1); PTT PATIENT 25.5 SECONDS (21.0-31.0)
[2017-04-14] MEDS ORDERED: CEFEPIME IV 2,000 MG in DEXTROSE 5% 100ML 100 ML IV STA (19:10)
[2017-04-14 19:20] LABS: ALBUMIN 2.4 gm/dl (3.4-5.0); ALT/SGPT 57 U/L (12-78); AST/SGOT 23 U/L (15-37); BLOOD UREA NITROGEN 56 mg/dl (7-18); CALCIUM 7.7 mg/dl (8.5-10.1); CARBON DIOXIDE 27 mmol/L (21-32); GLUCOSE 132 mg/dl (70-99); LIPASE 48 U/L (73-393); POTASSIUM 4.1 mmol/L (3.5-5.1); SODIUM 133 mmol/L (136-145)
[2017-04-14 19:31] LABS: ALKALINE PHOSPHATASE 70 U/L (45-117); TOTAL PROTEIN 5.6 gm/dl (6.4-8.2)
[2017-04-14] MEDS ORDERED: ONDANSETRON INJ 2 MG/ML 2 ML VIAL IV STA (19:34)
[2017-04-14] MEDS ORDERED: LEVAQUIN 750MG / 150ML D5W IV STA (19:35)
--- NOTE | 2017-04-14 19:39 | DIAGNOSTIC IMAGING REPORT ---
CHEST 2 VIEWS ROUTINE CLINICAL HISTORY: 76 years-old Male presenting with WEAKNESS, cough, congestion. TECHNIQUE: PA and lateral views of the chest were obtained. COMPARISON: 04/10/2017. FINDINGS: Left subclavian Mediport terminates at the superior cavoatrial junction and has been accessed. Atherosclerosis of aortic arch. Cardiac silhouette mildly enlarged unchanged. Stable prominence of the right peritracheal region at the site of known mediastinal mass with right apical paramediastinal pleural extension. Mild prominence of lung markings stable to slightly decreased from prior. Slight decrease in pulmonary vascular prominence. No new focal infiltrate. No pleural effusion or pneumothorax. Osseous structures normal. Upper abdomen normal. IMPRESSION: 1. 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 2. No acute cardiopulmonary disease. Stable slight interval decrease in pulmonary vascular and interstitial prominence. Electronically signed by: Haroldo Krause M.D. 04/14/2017 7:38 PM Dictated Date/Time: 04/14/2017 7:34 PM
[2017-04-14] MEDS ORDERED: GLUCAGON FOR INJ 1 MG VIAL SQ PRN (21:00)
[2017-04-14] MEDS ORDERED: INSULIN HUMAN 70% NPH/30% REGULAR SC SCH (21:00)
[2017-04-14] MEDS ORDERED: VANCOMYCIN CONSULT ACTIVE PRN (21:00)
[2017-04-14] MEDS ORDERED: POLYETHYLENE (MIRALAX) 17 GM PACK PO PRN (21:00)
[2017-04-14] MEDS ORDERED: GLUCOSE 10 TABS/TUBE PO PRN (21:00)
[2017-04-14] MEDS ORDERED: DEXTROSE 50% 50 ML SYR IV PRN (21:00)
[2017-04-14] MEDS ORDERED: PIPERACILL/TAZOBAC CONSULT ACTIVE PRN (21:00)
[2017-04-14] MEDS ORDERED: MAGNESIUM HYDROXIDE SUSP 30 ML UDC PO PRN (21:00)
[2017-04-14] MEDS ORDERED: GLUCOSE 40% GEL 15 GM TUBE PO PRN (21:00)
--- NOTE | 2017-04-14 21:11 | EMERGENCY ROOM VISIT NOTE ---
History Report prepared by Len: Lu May Under the Supervision of: Dr. Mason Lazo D.O. First contact with patient: 17:42 Chief Complaint: DIARRHEA Stated Complaint: DIARRHEA, NOT EATING, LOW SUGAR, WEAK Nursing Triage Summary: pt to the ED with c/o diarrhea was just dc from here yesterday no c/o abd pain see orange sheet History of Present Illness The patient is a 76 year old male who presents to the Emergency Room with complaints of persistent weakness since yesterday. The patient was admitted to the hospital 2.5 weeks ago with trouble breathing. 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 He was discharged from the hospital yesterday. His daughter states that he should not have been discharged home as he is still too ill. The patient is not eating. His sugar has been low. He has had diarrhea which is not new or changed from when he was in the hospital. He states that he is thirsty. He denies any new headache, chest pain, SOB, abdominal pain, nausea, or vomiting. He is unsure of when he last received chemo or radiation. Source of History: patient, family Onset: yesterday Position: other (global) Quality: other (weakness) Timing: other (persistent) Associated Symptoms: + diarrhea, No headache, No chest pain, No SOB, No nausea, No vomiting, No abdominal pain Review of Systems See HPI for pertinent positives & negatives. A total of 10 systems reviewed and were otherwise negative. Past Medical & Surgical Medical Problems: (1) Chronic kidney disease (2) Diabetes (3) Lung mass (4) Neutropenic fever (5) Small cell lung cancer (6) Small cell lung carcinoma (7) Tumor lysis syndrome Family History No pertinent family history stated. Social History Smoking Status: Current Every Day Smoker Occupation Status: retired Current/Historical Medications Scheduled Albuterol Hfa (Ventolin Hfa), 2 PUFFS INH Q4H Allopurinol (Allopurinol), 200 MG PO DAILY Amlodipine Besylate (Amlodipine Besylate), 5 MG PO QAM Aspirin (Aspirin Ec), 81 MG PO DAILY Atorvastatin (Lipitor), 40 MG PO DAILY Budesonide/Formoterol Fumarate (Symbicort 160-4.5 Mcg/Act), 2 PUFFS INH BID Cholecalciferol (Vitamin D3), 1 TAB PO DAILY Furosemide (Lasix), 1 TAB PO DAILY Home O2 Therapy (Oxygen), 4 LITERS NA CONTINOUS Insulin Human Isophan/Regular (Novolin 70/30), 95 UNITS SC BID Nicotine (Nicoderm Cq 21MG Patch), 1 PATCH TD DAILY Prednisone (Prednisone), 10 MG PO DAILY Tiotropium [place] (Spiriva Handihaler), 2 PUFF INH QAM Scheduled PRN Hydroxyzine HCl (Hydroxyzine HCl), 25 MG PO HSZ PRN for Insomnia Allergies Coded Allergies: No Known Allergies (Verified , 03/28/17) Physical Exam Vital Signs Date Time Temp Pulse Resp B/P (MAP) Pulse Ox O2 Delivery O2 Flow Rate FiO2 04/14/17 20:02 97 Nasal Cannula 2.0 04/14/17 19:18 37.1 04/14/17 18:59 37.9 114 24 93 Room Air 04/14/17 18:43 120 120/61 120 159/77 04/14/17 17:55 119 04/14/17 17:39 37.3 121 20 123/57 93 Room Air Physical Exam GENERAL: Sitting up in bed, chronically ill appearing, slightly dyspneic with conversation EYE EXAM: normal conjunctiva. PERRL and EOM's grossly intact. OROPHARYNX: no exudate, no erythema, lips, buccal mucosa, and tongue normal and mucous membranes are moist NECK: supple, no nuchal rigidity, no adenopathy, non-tender CHEST: Port located in right chest wall, incision is clean. Additional incision located proximal to left clavicle is clean dry and intact. LUNGS: Diminished at bilateral bases. HEART: tachycardic, no murmurs, S1 normal and S2 normal ABDOMEN: abdomen soft, non-tender, normo-active bowel sounds, no masses, no rebound or guarding. BACK: Back is symmetrical on inspection and there is no deformity, no midline tenderness, no CVA tenderness. SKIN: no rashes, multiple bruises UPPER EXTREMITIES: upper extremities are grossly normal. LOWER EXTREMITIES: No pitting edema. NEURO EXAM: Normal sensorium, cranial nerves II-XII grossly intact, normal speech, no gross weakness of arms, no gross weakness of legs. Medical Decision & Procedures ER Provider Diagnostic Interpretation: Xray results as stated below per my and the radiologist's interpretation: CHEST 2 VIEWS ROUTINE CLINICAL HISTORY: 76 years-old Male presenting with WEAKNESS, cough, congestion. TECHNIQUE: PA and lateral views of the chest were obtained. COMPARISON: 04/10/2017. FINDINGS: Left subclavian Mediport terminates at the superior cavoatrial junction and has been accessed. Atherosclerosis of aortic arch. Cardiac silhouette mildly enlarged unchanged. Stable prominence of the right peritracheal region at the site of known mediastinal mass with right apical paramediastinal pleural extension. Mild prominence of lung markings stable to slightly decreased from prior. Slight decrease in pulmonary vascular prominence. No new focal infiltrate. No pleural effusion or pneumothorax. Osseous structures normal. Upper abdomen normal. IMPRESSION: 1. 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 2. No acute cardiopulmonary disease. Stable slight interval decrease in pulmonary vascular and interstitial prominence. Electronically signed by: Haroldo Krause M.D. 04/14/2017 7:38 PM Dictated Date/Time: 04/14/2017 7:34 PM Laboratory Results 04/14/17 18:45 04/14/17 18:45 Test 04/14/17 18:42 04/14/17 18:45 04/14/17 19:45 Bedside Glucose 133 mg/dl (70-99) Red Blood Count 3.32 M/uL (4.7-6.1) Mean Corpuscular Volume 91.6 fL (80-100) Mean Corpuscular Hemoglobin 31.3 pg (25-34) Mean Corpuscular Hemoglobin Concent 34.2 g/dl (32-36) RDW Standard Deviation 44.0 fL (36.4-46.3) RDW Coefficient of Variation 13.0 % (11.5-14.5) Mean Platelet Volume 10.2 fL (7.4-10.4) Prothrombin Time 11.1 SECONDS (9.0-12.0) Prothromb Time International Ratio 1.1 (0.9-1.1) Activated Partial Thromboplast Time 25.5 SECONDS (21.0-31.0) Partial Thromboplastin Ratio 1.0 Anion Gap 5.0 mmol/L (3-11) Est Creatinine Clear Calc Drug Dose 61.3 ml/min Estimated GFR () 56.6 Estimated GFR (Non- 48.8 BUN/Creatinine Ratio 39.9 (10-20) Calcium Level 7.7 mg/dl (8.5-10.1) Magnesium Level 1.4 mg/dl (1.8-2.4) Total Bilirubin 1.1 mg/dl (0.2-1) Direct Bilirubin 0.4 mg/dl (0-0.2) Aspartate Amino Transf (AST/SGOT) 23 U/L (15-37) Alanine Aminotransferase (ALT/SGPT) 57 U/L (12-78) Alkaline Phosphatase 70 U/L (45-117) Troponin I < 0.015 ng/ml (0-0.045) Total Protein 5.6 gm/dl (6.4-8.2) Albumin 2.4 gm/dl (3.4-5.0) Lipase 48 U/L (73-393) Thyroid Stimulating Hormone (TSH) 0.722 uIu/ml (0.300-4.500) Lactic Acid Level 2.4 mmol/L (0.4-2.0) Laboratory results per my review. Medications Administered Medications (Trade) Dose Ordered Sig/Michel Route Start Time Stop Time Status Last Admin Dose Admin Sodium Chloride 1,000 ml @ 999 mls/hr Q1H1M STAT IV 04/14/17 17:53 04/14/17 18:53 DC 04/14/17 17:53 999 MLS/HR Cefepime HCl 2000 mg/Dextrose 122 ml @ 200 mls/hr NOW STAT IV 04/14/17 19:10 04/14/17 19:46 DC 04/14/17 19:35 200 MLS/HR Ondansetron HCl (Zofran Inj) 4 mg NOW STAT IV 04/14/17 19:34 04/14/17 19:35 DC 04/14/17 19:39 4 MG Levofloxacin (Levaquin / D5W) 750 mg NOW STAT IV 04/14/17 19:35 04/14/17 19:37 DC 04/14/17 19:53 750 MG ECG Per My Interpretation Indication: SOB/dyspnea Rate (beats per minute): 116 Rhythm: sinus tachycardia Findings: other (terrible baseline, normal axis) ED Course ED COURSE: Vital signs were reviewed and showed tachycardia. The patients medical record was reviewed The above diagnostic studies were performed and reviewed. ED treatments and interventions as stated above. 1747: The patient was evaluated in room C3. A complete history and physical examination was performed. 1753: NSS 1000 ml @ 999 mls/hr IV. 1909: Cefepime HCl 2000 mg/Dextrose 122 ml @ 200 mls/hr IV. 1911: Upon reevaluation, the patient is stable. I discussed my findings with the patient and his daughter and they understand and agree with the treatment plan. Based on the patient's age, coexisting illnesses, exam and lab findings the decision to treat as an inpatient was made. The patient remained stable while under my care. The patient will be evaluated for further management. 1933: Zofran Inj 4 mg IV. 1934: Levofloxacin 750 mg IV. 1939: I reviewed the patient's case with Dr. Velazquez [facility] hospitalist. He will evaluate the patient for further management. Medical Decision Differential Diagnosis includes but is not limited to dehydration, stroke, anemia, hypoglycemia, hyponatremia, hypernatremia, urinary tract infection, pneumonia, bronchitis, sepsis, gastroenteritis, additional abdominal pathology, metabolic abnormalities and infections. Patient is a 76-year-old male that presents the ER who was just recently discharged less than 24 hours ago following a two-week hospital stay. He was diagnosed with small cell lung carcinoma and had tumor lysis syndrome. He presents with diarrhea and feeling weak. Upon presentation does have a fever. He is neutropenic. He was covered with broad-spectrum antibiotics. Blood cultures were obtained. Lactic acid was slightly elevated. He was given fluids. Magnesium was slightly low at 1.4. On chest x-ray he has a questionable right lower lobe infiltrate. Radiology called was negative. I did place him on cefepime and Levaquin. Patient family were obtained at bedside. I discussed with internal medicine. He was admitted for neutropenic fever. Medication Reconcilliation Current Medication List: was personally reviewed by me Blood Pressure Screening Patient's blood pressure: Normal blood pressure Blood pressure disposition: Did not require urgent referral Consults Time Called: 1936 Consulting Physician: Dr. Velazquez [facility] hospitalist Returned Call: 1939 I reviewed the patient's case with him. He will evaluate the patient for further management. Impression Primary Impression: Neutropenic fever Scribe Attestation The scribe's documentation has been prepared under my direction and personally reviewed by me in its entirety. I confirm that the note above accurately reflects all work, treatment, procedures, and medical decision making performed by me. Departure Information Dispostion Being Evaluated By Hospitalist Referrals Anil Valdez M.D. (PCP) Patient Instructions My [facility]
--- NOTE | 2017-04-14 21:45 | History and Physical ---
History & Physical Date & Time of Service: Apr 14, 2017 at 21:09 Chief Complaint: Diarrhea, Not Eating, Low Sugar, Weak Primary Care Physician: Anil Valdez M.D. History of Present Illness Source: patient, hospital records Patient is a 76 year old male with Small Cell Lung Cancer, DM, HTN, HLD, and Morbid Obesity that presents to the ED with presistent fever, fatigue and weakness 1 day after discharge. The patient has felt fever weak for the last 24 hours in addition to chills and fatigue, but denies any fevers, sweats, shortness of breath, cough, or chest pain. The patient was initially admitted last month after the patient was diagnosed with Small Cell Lung Carcinoma and received Chemotherapy and Radiation during his admission. The patient states that he felt fatigued on discharge and has continued to have difficulty moving around along with shortness of breath. Due to concern from their home health nurse the patient was urged to return to the emergency department. In the ED the patient was found to be hypoxic and febrile although not complaining of SOB. The patient also had 6 watery bowel movements today that his niece describes as very foul smelling. No other acute complaints. Family History Noncontributory Social History Smoking Status: Current Every Day Smoker Smokeless Tobacco Use: No Alcohol Use: none Drug Use: none Marital Status: Housing status: lives with family Occupational Status: retired Immunizations History of Influenza Vaccine: Yes History of Tetanus Vaccine?: Yes Tetanus Immunization Date: Feb 22, 2004 History of Pneumococcal: Yes Pneumococcal Date: Feb 21, 2007 History of Hepatitis B Vaccine: No Allergies Coded Allergies: No Known Allergies (Verified , 03/28/17) Home Medications Scheduled Albuterol Hfa (Ventolin Hfa), 2 PUFFS INH Q4H Allopurinol (Allopurinol), 200 MG PO DAILY Amlodipine Besylate (Amlodipine Besylate), 5 MG PO QAM Aspirin (Aspirin Ec), 81 MG PO DAILY Atorvastatin (Lipitor), 40 MG PO DAILY Budesonide/Formoterol Fumarate (Symbicort 160-4.5 Mcg/Act), 2 PUFFS INH BID Cholecalciferol (Vitamin D3), 1 TAB PO DAILY Furosemide (Lasix), 1 TAB PO DAILY Home O2 Therapy (Oxygen), 4 LITERS NA CONTINOUS Insulin Human Isophan/Regular (Novolin 70/30), 95 UNITS SC BID Nicotine (Nicoderm Cq 21MG Patch), 1 PATCH TD DAILY Prednisone (Prednisone), 10 MG PO DAILY Tiotropium [place] (Spiriva Handihaler), 2 PUFF INH QAM Scheduled PRN Hydroxyzine HCl (Hydroxyzine HCl), 25 MG PO HSZ PRN for Insomnia Review of Systems Constitutional: + chills, + weakness, + fatigue, No fever, No sweats Respiratory: + cough, + sputum, + dyspnea on exertion, No wheezing, No shortness of breath Cardiovascular: + orthopnea, No chest pain, No palpitations Abdomen: + diarrhea, No pain, No nausea, No vomiting, No constipation, No GI bleeding Genitourinary - Male: No dysuria Neurologic: + weakness, No numbness/tingling Physical Exam Vital Signs Date Time Temp Pulse Resp B/P (MAP) Pulse Ox O2 Delivery O2 Flow Rate FiO2 04/14/17 20:02 97 Nasal Cannula 2.0 04/14/17 19:18 37.1 04/14/17 18:59 37.9 114 24 93 Room Air 04/14/17 18:43 120 120/61 120 159/77 04/14/17 17:55 119 04/14/17 17:39 37.3 121 20 123/57 93 Room Air General Appearance: + mild distress, + obese Head: normocephalic, atraumatic Eyes: normal inspection, sclerae normal Neck: supple, no carotid bruits Respiratory/Chest: chest non-tender, no respiratory distress, no accessory muscle use, + pertinent finding (Coarse breath sounds bilaterally) Cardiovascular: regular rate, rhythm, no edema, no gallop Abdomen/GI: normal bowel sounds, non tender, soft Back: normal inspection, no CVA tenderness Extremities/Musculoskelatal: no calf tenderness, + pedal edema (2+ pitting), + swelling Neurologic/Psych: alert, normal mood/affect, oriented x 3 Skin: + pertinent finding (Tissue necrosis at tip or left great toe) Diagnostics Laboratory Results Results Past 24 Hours Test 04/14/17 18:42 04/14/17 18:45 04/14/17 19:45 Range/Units Bedside Glucose 133 70-99 mg/dl White Blood Count 0.17 4.8-10.8 K/uL Red Blood Count 3.32 4.7-6.1 M/uL Hemoglobin 10.4 14.0-18.0 g/dL Hematocrit 30.4 42-52 % Mean Corpuscular Volume 91.6 80-100 fL Mean Corpuscular Hemoglobin 31.3 25-34 pg Mean Corpuscular Hemoglobin Concent 34.2 32-36 g/dl RDW Standard Deviation 44.0 36.4-46.3 fL RDW Coefficient of Variation 13.0 11.5-14.5 % Platelet Count 36 130-400 K/uL Mean Platelet Volume 10.2 7.4-10.4 fL Prothrombin Time 11.1 9.0-12.0 SECONDS Prothromb Time International Ratio 1.1 0.9-1.1 Activated Partial Thromboplast Time 25.5 21.0-31.0 SECONDS Partial Thromboplastin Ratio 1.0 Sodium Level 133 136-145 mmol/L Potassium Level 4.1 3.5-5.1 mmol/L Chloride Level 101 98-107 mmol/L Carbon Dioxide Level 27 21-32 mmol/L Anion Gap 5.0 3-11 mmol/L Blood Urea Nitrogen 56 7-18 mg/dl Creatinine 1.40 0.60-1.40 mg/dl Est Creatinine Clear Calc Drug Dose 61.3 ml/min Estimated GFR () 56.6 Estimated GFR (Non- 48.8 BUN/Creatinine Ratio 39.9 10-20 Random Glucose 132 70-99 mg/dl Calcium Level 7.7 8.5-10.1 mg/dl Magnesium Level 1.4 1.8-2.4 mg/dl Total Bilirubin 1.1 0.2-1 mg/dl Direct Bilirubin 0.4 0-0.2 mg/dl Aspartate Amino Transf (AST/SGOT) 23 15-37 U/L Alanine Aminotransferase (ALT/SGPT) 57 12-78 U/L Alkaline Phosphatase 70 45-117 U/L Troponin I < 0.015 0-0.045 ng/ml Total Protein 5.6 6.4-8.2 gm/dl Albumin 2.4 3.4-5.0 gm/dl Lipase 48 73-393 U/L Thyroid Stimulating Hormone (TSH) 0.722 0.300-4.500 uIu/ml Lactic Acid Level 2.4 0.4-2.0 mmol/L Microbiology Results 04/14/17 Blood Culture, Received Pending 3/6/18 Blood Culture, Received Pending Impression Assessment and Plan Patient is a 76 year old male with Small Cell Lung Cancer, DM, HTN, HLD, and Morbid Obesity that presents to the ED with presistent fever, fatigue and weakness 1 day after discharge Neutropenic Fever - WBC 0.17 - Neutropenic Precautions - Empiric Antibiotic Therapy --> Vancomycin and Zosyn - Sputum Gram Stain/ Culture - Blood Cultures x 2 - Lactic acid 2.4 --> Repeat at 6 hours from admission - Admit to Med/Surg Acute Hypoxic Respiratory Failure - CXR: No acute cardiopulmonary disease - Supplemental O2 to maintain SpO2 > 90% --> Not previously discharged on O2 because passed the 2 step - DuoNebs + Symbicort + Spiriva - Guaifenesin - Solu-Medrol 60mg IV q8h (Was started on 40mg prednisone taper on discharge) Diarrhea/ C Diff - C Diff Stool Toxin Studies - PO Vanco as prophylaxis Small Cell Lung Carcinoma - Consult Oncology - At some point contact Dr. Stokes regarding Rad/Onc Left 1st Toe Necrosis - Wound Care Consult - Left lower extremity arterial doppler Hypomagnesemia - Magnesium of 1.4 - 2gm Magnesium Sulfate CKD Stage 3 - Cr of 1.12 on discharge --> Now 1.4 - NS @ 125 mls/hr DM - Lantus 12 units BID (regimen from previous admission) --> Previous home regimen was Human Insulin(Novolin 70/30) 95 units SC BID - SSI + BSG Check AC/HS Tumor Lysis Syndrome on Previous Admission - Resolved and was followed by Nephrology and Oncology Thrombocytopenia - Platelets 36 (38 on discharge) Gout - Continue Home Allopurinol HTN - Continue Home Amlodipine CHF - Continue Home Lasix 20mg PO Daily' CAD - Continue Home Aspirin HLD - Continue Home Lipitor Tobacco Use - Quit 3 days prior to last admission - Nicotine patch Insomnia - Vistaril DVT - SCDs - No Heparin or Lovenox due to Thrombocytopenia - Was on Lovenox on discharge but at this time will hold chemical anticoagulation and discuss with Heme/Onc tomorrow Code Status - Full Resuscitation Attending addendum: I have physically seen this patient, have supervised the medical residents activities, and agree with the H&P unless as otherwise noted. Assessment and Plan: Acute respiratory failure with hypoxia/neutropenic fever-- Neutropenic precautions. Broad-spectrum antibiotic coverage with vancomycin IV and Zosyn IV. Sputum Gram stain and culture, and blood cultures 2. Solu-Medrol 60 mg IV every 8 hours. Guaifenesin extended release 600 mg p.o. twice daily. Duonebs every 4 hours while awake and every 2 hours when necessary. C. difficile history-- C. difficile toxin gene testing. Empiric treatment with Vanco. Additional orders as above. Advanced Directives Existing Advance Directive: No Existing Living Will: No Existing Power of Aircraft Instrument Repairer: No Resuscitation Status Full Code VTE Prophylaxis Will order VTE Prophylaxis: Yes Resident Tracking Resident Involvement: Resident Care Provided Care Provided: Adult Hospital Medicine
[2017-04-14] MEDS ORDERED: ENOXAPARIN 40 MG/0.4 ML SYR SQ SCH (22:00)
--- NOTE | 2017-04-14 22:01 | Pharmacy Progress Note ---
Pharmacy Abx Dose Short Note Date of Service Apr 14, 2017. Assessment & Plan Item Value Date Time Blood Culture Received 04/14/171944 Blood Pending Blood Culture Received 04/14/171844 Blood Pending White Blood Count 0.17 K/uL *L 04/14/171844 Creatinine 1.40 mg/dl 04/14/171844 Est Creatinine Clear Calc Drug Dose 61.3 ml/min 04/14/171844 Vital Signs Label Value Date Time Patient Temperature 37.9 C. H 04/14/171858 Temperature Source Oral 04/14/171858 Assessment 76 year old male receiving vanc/zosyn for treatment of FEBRILE NEUTROPENIA (C&S pending) * Day # 1 of antimicrobial therapy. Pertinent PMH: 2.5 week stay at [facility], discharged yesterday. Diabetes, NSCL Ca, CKD Plan Vancomycin * Estimated p'kinetics: Est Vd~0.7L/kg, Ke~0.055hr-1, t1/2 ~12 hrs * LOADING DOSE: VANC 2750mg (~20mg/kg) IV x 1, then * MAINTENANCE DOSE: To be determined... * RANDOM VANC level for 3/7-am labs to guide subsequent redosing? ZOSYN: 4.5grams IV load, then 4.5grams IV every 8 hours for morbid obesity/ critical illness. Pharmacy will continue to follow and will adjust dose/frequency as necessary. Thank you.
[2017-04-14 22:15] VITALS: BP 133/63; PULSE 114; TEMP 37.3; O2SAT 94
--- NOTE | 2017-04-14 22:16 | DIAGNOSTIC IMAGING REPORT ---
ART DOP DUPLEX LWR EXT UNI CLINICAL HISTORY: 76 years-old Male presenting with great toe necrosis. TECHNIQUE: Real-time grayscale and color and spectral Doppler ultrasound imaging of the left lower extremity arteries was performed. Measurements calculated based on NASCET criteria. COMPARISON: None. FINDINGS: Left: Common femoral artery: Patent. Peak systolic velocity 187 cm/s. Superficial femoral artery: Patent. Peak systolic velocity 99-150 cm/s. Deep femoral artery: Patent. Peak systolic velocity 128 cm/s. Popliteal artery: Patent. Peak systolic velocity 53-89 cm/s. Anterior tibial artery: Patent. Peak systolic velocity 124 cm/s. Posterior tibial artery: Patent. Peak systolic velocity 55-80 cm/s. Peroneal artery: Patent. Peak systolic velocity 62-90 cm/s. Dorsalis pedis: Not visualized. DEBBI Not performed. Reference ranges: Normal DEBBI 1.0-1.4; 0.9-0.99 borderline; less than 0.9 abnormal. Other: Subcutaneous edema noted. IMPRESSION: 1. No hemodynamically significant stenosis. Nonvisualization of the dorsalis pedis artery. Remaining arteries of the left lower extremity patent. Electronically signed by: Haroldo Krause M.D. 04/14/2017 10:15 PM Dictated Date/Time: 04/14/2017 10:11 PM
[2017-04-14] MEDS ORDERED: PIPERACILL/TAZOBAC IV 4.5 GM in DEXTROSE 5% 100ML 100 ML IV ONE (22:30)
[2017-04-14 22:44] VITALS: BP 133/63; PULSE 114; TEMP 37.3; O2SAT 96; BMI 45.3
[2017-04-14] MEDS ORDERED: VANCOMYCIN HCL 250 MG/5 ML SOLN PO SCH (23:00)
[2017-04-14] MEDS ORDERED: RASPBERRY SYRUP 5 ML UDP PO SCH (23:00)
[2017-04-14] MEDS ORDERED: VANCOMYCIN IV 2,750 MG in SODIUM CHLORIDE 0.9% 500ML 500 ML IV ONE (23:00)
[2017-04-14] MEDS: INSULIN ASPART 100 UNITS/ML 3 ML PEN SC SCH (23:05)
[2017-04-14] MEDS: INSULIN GLARGINE SOLOSTAR 100 UNITS/ML 3 ML PEN SC SCH (23:06)
[2017-04-14] MEDS: MAGNESIUM SULFATE 1GM / D5W 1 GM in PREMIXED IN D5W 100 ML IV SCH (23:52)
[2017-04-14] MEDS: ALBUTEROL HFA 8 GM INHALER INH SCH (23:53)
[2017-04-14] MEDS: METHYLPREDNISOLONE IV 60 MG in SYRINGE 0 ML IV SCH (23:54)
[2017-04-14] MEDS: GUAIFENESIN 200 MG TAB PO SCH (23:55)
[2017-04-15] VITALS (12 sets, daily range): BP systolic 98–130; BP diastolic 57–72; PULSE 89–109; TEMP 36.5–37.6; O2SAT 84–97; BMI 45.3
[2017-04-15] MEDS: hydrOXYzine HCL 25 MG TAB PO PRN (00:40)
[2017-04-15] MEDS: MAGNESIUM SULFATE 1GM / D5W 1 GM in PREMIXED IN D5W 100 ML IV SCH (02:17)
[2017-04-15] MEDS: GUAIFENESIN 200 MG TAB PO SCH ×5 (04:04→20:34)
[2017-04-15] MEDS: ALBUTEROL HFA 8 GM INHALER INH SCH ×5 (04:04→20:34)
[2017-04-15] MEDS: PIPERACILL/TAZOBAC IV 4.5 GM in DEXTROSE 5% 100ML 100 ML IV SCH ×3 (04:04→20:33)
[2017-04-15] MEDS ORDERED: NURSING VERBAL MED ORDER ONE (06:15)
[2017-04-15] MEDS: ALBUT/IPRATROP 3MG/0.5MG NEB 3 ML VIAL INH SCH ×4 (07:02→19:02)
[2017-04-15] MEDS: TIOTROPIUM BROMIDE 5 PUFF/90 MCG INH INH SCH (07:43)
[2017-04-15] MEDS: BUDESONIDE/FORMOTEROL FUMARATE 160/4.5 60 PUFFS/INHALER INH SCH ×2 (07:43→20:33)
[2017-04-15] MEDS: ASPIRIN 81 MG ECTAB PO SCH (07:45)
[2017-04-15] MEDS: FUROSEMIDE 20 MG TAB PO SCH (07:46)
[2017-04-15] MEDS: ATORVASTATIN 20 MG TAB PO SCH (07:47)
[2017-04-15] MEDS: AMLODIPINE BESYLATE 5 MG TAB PO SCH (07:48)
[2017-04-15] MEDS: NICOTINE 21 MG/24 HR TDSY TD SCH (07:51)
[2017-04-15] MEDS: METHYLPREDNISOLONE IV 60 MG in SYRINGE 0 ML IV SCH ×2 (07:53→16:03)
[2017-04-15] MEDS ORDERED: ALLOPURINOL 100 MG TAB PO SCH (08:00)
[2017-04-15] MEDS: INSULIN GLARGINE SOLOSTAR 100 UNITS/ML 3 ML PEN SC SCH ×2 (08:03→20:38)
[2017-04-15 08:29] LABS: HEMATOCRIT 28.1 % (42-52); HEMOGLOBIN 9.3 g/dL (14.0-18.0); MEAN CELL VOLUME 92.4 fL (80-100); MEAN CORPUSCULAR HEMOGLOBIN 30.6 pg (25-34); MEAN CORPUSCULAR HGB CONC 33.1 g/dl (32-36); MEAN PLATELET VOLUME 10.8 fL (7.4-10.4); PLATELET COUNT 31 K/uL (130-400); RED CELL DISTRIBUTION WIDTH CV 13.2 % (11.5-14.5); RED CELL DISTRIBUTION WIDTH SD 44.5 fL (36.4-46.3)
[2017-04-15 08:35] LABS: CALCIUM 6.9 mg/dl (8.5-10.1); CREATININE 1.62 mg/dl (0.60-1.40); POTASSIUM 4.5 mmol/L (3.5-5.1)
[2017-04-15] MEDS: INSULIN ASPART 100 UNITS/ML 3 ML PEN SC SCH ×5 (09:18→20:39)
--- NOTE | 2017-04-15 10:01 | Pharmacy Progress Note ---
Pharmacy Abx Dose Progress Nt Date of Service Apr 15, 2017. Pharmacy Dosing Scope The patient is currently receiving the following antimicrobial agents per Pharmacy consult: Vancomycin x loading dose only Zosyn 4.5 gm q8h Objective Height (Feet): 5 Height (Inches): 8.00 Weight (Kilograms): 135.000 (BMI = 45.3) Vital Signs (Past 12Hrs) Vital Signs Past 12 Hours Date Time Temp Pulse Resp B/P (MAP) Pulse Ox O2 Delivery O2 Flow Rate FiO2 04/15/17 08:27 94 Nasal Cannula 2.0 04/15/17 08:25 84 Room Air 04/15/17 07:17 36.7 102 18 111/72 (85) 94 Room Air 04/15/17 07:07 105 18 91 Room Air 04/15/17 04:33 37.6 109 20 98/57 (71) 93 Room Air 04/15/17 00:00 BiPAP 04/14/17 22:44 37.3 114 20 133/63 96 Room Air 04/14/17 22:15 37.3 114 20 133/63 (86) 94 Nasal Cannula 2.0 Lab Results (24Hrs) Laboratory Tests (24 Hours) Test 04/15/17 03:01 04/15/17 07:49 Lactic Acid Level 1.1 mmol/L (0.4-2.0) White Blood Count 0.40 K/uL (4.8-10.8) *L Micro Results Date/Time Source Procedure Growth Status 04/14/17 19:45 Blood Blood Culture Pending Received 04/14/17 18:45 Blood Blood Culture Pending Received 04/14/17 22:40 Stool C.difficile Toxin B Gene (PCR) - Final No C. difficile toxin B gene detected Complete 04/14/17 22:30 Sputum Expectorated Sputum Gram Stain - Final Resulted 04/14/17 22:30 Sputum Expectorated Sputum Sputum Culture Pending Resulted Risk Factors for Resistance * Hospitalization for 48 hours or more within the past 90 days * Immunocompromised (chronic steroid therapy, chemotherapy, immunomodulators) Assessment & Plan Assessment 76 year old male receiving vancomycin and Zosyn for treatment of febrile neutropenia Day # 2 of antimicrobial therapy Item Value Date Time C.difficile Toxin B Gene (PCR) - Final Complete 04/14/17 2240 Stool No C. difficile toxin B gene detected Gram Stain - Final Resulted 04/14/170 Sputum Expectorated Sputum Blood Culture Received 04/14/17 1945 Blood Pending Blood Culture Received 04/14/17 1845 Blood Pending Plan Vancomycin IV * Random level (which was actually a peak level) was 38.9, indicates Vd closer to 0.54 L/kg - typical for patient with this BMI * SCr has worsened further today so will plan to dose based upon levels rather than ordering a maintenance dose at this point * New est PK parameters based on SCr 1.6: Vd 0.54 L/kg, Kody 0.048, t1/2 14.3 hrs * Estimating that level should be ~18 in 16 hours * Goal trough level for neutropenic fever : 15 to 20 mcg/mL * Random level @ 1800 tonight * If level still > 25 - no further doses and recheck random w/ AM labs * If level 20-25 - 1000 mg dose (7.5 mg/kg) * If level < 20 - 1500 mg dose (11 mg/kg) Piperacillin/tazobactam * Continue 4.5 g IV extended infusion every 8 hours for CrCl greater than 20 mL/ min - higher dose used for BMI Pharmacy will continue to follow and will adjust dose/frequency as necessary. Thank you.
--- NOTE | 2017-04-15 12:28 | Oncology Consultation ---
Oncology/Heme Consultation Date of Consultation: Apr 15, 2017. Attending Physician: Chapincito Velazquez M.D. Reason for Consultation: Cytopenia history of small cell lung cancer History of Present Illness Mr. Jordan is a 76-year-old gentleman with a long-standing history of smoking. 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 He was treated with carboplatinum and [place] T can now about 10 or 11 days ago. He also received radiation therapy but this is been on hold. The final staging of his disease replaced is at limited stage. He was readmitted after just being discharged with diarrhea. His white cell number is drifted down more than before. He is a very difficult person to gather much of a history from. He denies any pain. He states his breathing has been stable. Past Medical/Surgical History Medical Problems: (1) COPD (chronic obstructive pulmonary disease) Status: Acute (2) Hypoxia Status: Acute (3) Lung mass Status: Acute (4) SOB (shortness of breath) Status: Acute Social History Smoking Status: Current Every Day Smoker Smokeless Tobacco Use: No Alcohol Use: none Drug Use: none Occupation Status: retired Allergies Coded Allergies: No Known Allergies (Verified , 03/28/17) Home Medications Scheduled Albuterol Hfa (Ventolin Hfa), 2 PUFFS INH Q4H Allopurinol (Allopurinol), 200 MG PO DAILY Amlodipine Besylate (Amlodipine Besylate), 5 MG PO QAM Aspirin (Aspirin Ec), 81 MG PO DAILY Atorvastatin (Lipitor), 40 MG PO DAILY Budesonide/Formoterol Fumarate (Symbicort 160-4.5 Mcg/Act), 2 PUFFS INH BID Cholecalciferol (Vitamin D3), 1 TAB PO DAILY Furosemide (Lasix), 1 TAB PO DAILY Home O2 Therapy (Oxygen), 4 LITERS NA CONTINOUS Insulin Human Isophan/Regular (Novolin 70/30), 95 UNITS SC BID Nicotine (Nicoderm Cq 21MG Patch), 1 PATCH TD DAILY Prednisone (Prednisone), 10 MG PO DAILY Tiotropium [place] (Spiriva Handihaler), 2 PUFF INH QAM Scheduled PRN Hydroxyzine HCl (Hydroxyzine HCl), 25 MG PO HSZ PRN for Insomnia Current Inpatient Medications Current Inpatient Medications Medications (Trade) Dose Ordered Sig/Michel Route Start Time Stop Time Status Last Admin Dose Admin Acetaminophen (Tylenol Tab) 650 mg Q4H PRN PO 04/14/17 21:00 05/14/17 20:59 Magnesium Hydroxide (Milk Of Magnesia Susp) 30 ml Q6H PRN PO 04/14/17 21:00 05/14/17 20:59 Polyethylene (Miralax Powder Packet) 17 gm DAILY PRN PO 04/14/17 21:00 05/14/17 20:59 Ondansetron HCl (Zofran Inj) 4 mg Q6H PRN IV 04/14/17 21:00 05/14/17 20:59 Insulin Aspart (novoLOG ASPART) SLIDING SCALE If C... ACHS SC 04/14/17 21:00 05/14/17 20:59 04/15/17 09:18 10 UNITS Glucose (Glucose 40% Gel) 15-30 GRAMS 15 GRAMS... UD PRN PO 04/14/17 21:00 05/14/17 20:59 Glucose (Glucose Chew Tab) 4-8 Tablets 4 Tabl... UD PRN PO 04/14/17 21:00 05/14/17 20:59 Dextrose (Dextrose 50% 50ML Syringe) 25-50ML OF 50% DW IV FOR... UD PRN IV 04/14/17 21:00 05/14/17 20:59 Glucagon (Glucagon Inj) 1 mg UD PRN SQ 04/14/17 21:00 05/14/17 20:59 Albuterol (Ventolin Hfa Inhaler) 2 puffs Q4H INH 04/15/17 00:00 05/15/17 00:00 04/15/17 07:54 2 PUFFS Allopurinol (Zyloprim Tab) 200 mg DAILY PO 04/15/17 08:00 05/15/17 08:59 04/15/17 07:49 200 MG Amlodipine Besylate (Norvasc Tab) 5 mg QAM PO 04/15/17 08:00 05/15/17 08:59 04/15/17 07:48 5 MG Aspirin (Ecotrin Tab) 81 mg DAILY PO 04/15/17 08:00 05/15/17 08:59 04/15/17 07:45 81 MG Atorvastatin Calcium (Lipitor Tab) 40 mg DAILY PO 04/15/17 08:00 05/15/17 08:59 04/15/17 07:47 40 MG Budesonide/ Formoterol Fumarate (Symbicort 160/ 4.5 Inh) 2 puffs BID INH 04/15/17 08:00 05/15/17 07:59 04/15/17 07:43 2 PUFFS Furosemide (Lasix Tab) 20 mg DAILY PO 04/15/17 08:00 05/15/17 08:59 04/15/17 07:46 20 MG Hydroxyzine HCl (Vistaril Tab) 25 mg HSZ PRN PO 04/14/17 21:00 05/14/17 20:59 04/15/17 00:40 25 MG Nicotine (Nicoderm Cq 21MG Patch) 1 patch DAILY TD 04/15/17 08:00 05/15/17 08:59 Tiotropium [place] (Spiriva Handihaler Inhaler) 1 puff QAM INH 04/15/17 08:00 05/15/17 08:59 04/15/17 07:43 1 PUFF Miscellaneous Information (Consult) 1 ea UD PRN N/A 04/14/17 21:00 05/14/17 20:59 Piperacillin Sod/ Tazobactam Sod 4.5 gm/Dextrose 120 ml @ 30 mls/hr Q8H IV 04/15/17 04:00 04/17/17 03:59 04/15/17 04:04 30 MLS/HR Miscellaneous Information (Consult) 1 ea UD PRN N/A 04/14/17 21:00 05/14/17 20:59 Albuterol/ Ipratropium (Duoneb) 3 ml QIDR INH 04/15/17 08:00 05/15/17 07:59 04/15/17 11:09 3 ML Guaifenesin (Organidin Nr Tab) 200 mg Q4H PO 04/15/17 00:00 05/15/17 00:00 04/15/17 07:49 200 MG Methylprednisolone Sodium Succinate 60 mg/Syringe 0.96 ml @ 1.5 mls/min Q8H IV 04/15/17 00:00 05/15/17 00:00 04/15/17 07:53 1.5 MLS/MIN Insulin Glargine (Lantus Solostar Pen) 12 units BID SC 04/14/17 21:00 05/14/17 20:59 04/15/17 08:03 12 UNITS Miscellaneous (Remove Nicoderm Patch) 1 ea DAILY@0759 N/A 04/15/17 07:59 05/15/17 07:58 Heparin Sodium (Porcine) (Heparin 100 Unit/ml 5ml Flush) 5 ml PRN PRN IV 04/15/17 04:00 05/15/17 03:59 04/15/17 09:22 5 ML Review of Systems Although he responds promptly to questions he tends to give very brief answers. His complete review of systems seems really unremarkable however. Constitutional: Negative for weight loss, night sweats, or fever Eyes: Negative for event change of vision ENT: Negative for epistaxis, nasal discharge, sore throat, or deafness Cardiovascular: Negative for chest pain, palpitations, dizziness, diaphoresis Respiratory: Negative for new shortness of breath,hemoptysis, or purulent cough Gastrointestinal: He apparently according to the nose has had some diarrhea but he does not seem to comment about that. Integumentary (skin): Negative for rash or jaundice discoloration Neurological: Negative for weakness, seizure activity, headache, or dizziness Lymphatic/Hematologic: Negative for petechiae, bleeding or new adenopathy Musculoskeletal: Negative for new joint or back pain Allergic/Immunologic: Negative for unusual rash or pruritis. Physical Exam Date Time Temp Pulse Resp B/P (MAP) Pulse Ox O2 Delivery O2 Flow Rate FiO2 04/15/17 11:26 36.6 98 20 100/62 (75) 90 04/15/17 11:09 92 16 91 BiPAP/CPAP 4.0 04/15/17 10:50 BiPAP 04/15/17 08:27 94 Nasal Cannula 2.0 04/15/17 08:25 84 Room Air 04/15/17 07:17 36.7 102 18 111/72 (85) 94 Room Air 04/15/17 07:07 105 18 91 Room Air 04/15/17 04:33 37.6 109 20 98/57 (71) 93 Room Air 04/15/17 00:00 BiPAP 04/14/17 22:44 37.3 114 20 133/63 96 Room Air 04/14/17 22:15 37.3 114 20 133/63 (86) 94 Nasal Cannula 2.0 04/14/17 20:02 97 Nasal Cannula 2.0 04/14/17 19:18 37.1 04/14/17 18:59 37.9 114 24 93 Room Air 04/14/17 18:43 120 120/61 120 159/77 04/14/17 17:55 119 04/14/17 17:39 37.3 121 20 123/57 93 Room Air Constitutional: vitals are stable. Obese 76-year-old gentleman. Oxygen is ongoing. Eyes: Eyes are ELOY EOMI without conjuctival erythema or icterus. ENT: External examination was negative for masses. Neck: Negative for masses or palpable thyromegaly Respiratory: Lung sounds were generally clear but decreased bilaterally Cardiovascular: Heart was RRR without significant murmur, gallops or rubs Gastrointestinal: No palpable hepatic or splenomegaly. The abdomen was soft with normal bowel sounds. Lymphatic system: there was no palpable peripheral lymphadenopathy Musculoskeletal System: The musculoskeletal system seemed concordant with age. Skin: The skin was negative for jaundice. Neurologic exam: The exam was negative for any focal findings. Deep tendon reflexes were equal and symmetrical. Psychiatric exam: Was essentially negative with normal mood and effect. Extremities: negative for edema Laboratory Results Last 24 Hours Test 04/14/17 18:42 04/14/17 18:45 04/14/17 19:45 04/14/17 23:05 Bedside Glucose 133 mg/dl 149 mg/dl White Blood Count 0.17 K/uL Red Blood Count 3.32 M/uL Hemoglobin 10.4 g/dL Hematocrit 30.4 % Mean Corpuscular Volume 91.6 fL Mean Corpuscular Hemoglobin 31.3 pg Mean Corpuscular Hemoglobin Concent 34.2 g/dl RDW Standard Deviation 44.0 fL RDW Coefficient of Variation 13.0 % Platelet Count 36 K/uL Mean Platelet Volume 10.2 fL Prothrombin Time 11.1 SECONDS Prothromb Time International Ratio 1.1 Activated Partial Thromboplast Time 25.5 SECONDS Partial Thromboplastin Ratio 1.0 Sodium Level 133 mmol/L Potassium Level 4.1 mmol/L Chloride Level 101 mmol/L Carbon Dioxide Level 27 mmol/L Anion Gap 5.0 mmol/L Blood Urea Nitrogen 56 mg/dl Creatinine 1.40 mg/dl Est Creatinine Clear Calc Drug Dose 61.3 ml/min Estimated GFR () 56.6 Estimated GFR (Non- 48.8 BUN/Creatinine Ratio 39.9 Random Glucose 132 mg/dl Calcium Level 7.7 mg/dl Magnesium Level 1.4 mg/dl Total Bilirubin 1.1 mg/dl Direct Bilirubin 0.4 mg/dl Aspartate Amino Transf (AST/SGOT) 23 U/L Alanine Aminotransferase (ALT/SGPT) 57 U/L Alkaline Phosphatase 70 U/L Troponin I < 0.015 ng/ml Total Protein 5.6 gm/dl Albumin 2.4 gm/dl Lipase 48 U/L Thyroid Stimulating Hormone (TSH) 0.722 uIu/ml Lactic Acid Level 2.4 mmol/L Test 04/15/17 03:01 04/15/17 04:30 04/15/17 07:34 04/15/17 07:49 Lactic Acid Level 1.1 mmol/L Random Vancomycin Level 38.9 mcg/ml Urine Color YELLOW Urine Appearance CLEAR Urine pH 5.0 Urine Specific [place] 1.024 Urine Protein NEG Urine Glucose (UA) NEG Urine Ketones NEG Urine Occult Blood NEG Urine Nitrite NEG Urine Bilirubin NEG Urine Urobilinogen NEG Urine Leukocyte Esterase NEG Bedside Glucose 326 mg/dl White Blood Count 0.40 K/uL Red Blood Count 3.04 M/uL Hemoglobin 9.3 g/dL Hematocrit 28.1 % Mean Corpuscular Volume 92.4 fL Mean Corpuscular Hemoglobin 30.6 pg Mean Corpuscular Hemoglobin Concent 33.1 g/dl RDW Standard Deviation 44.5 fL RDW Coefficient of Variation 13.2 % Platelet Count 31 K/uL Mean Platelet Volume 10.8 fL Sodium Level 130 mmol/L Potassium Level 4.5 mmol/L Chloride Level 96 mmol/L Carbon Dioxide Level 25 mmol/L Anion Gap 9.0 mmol/L Blood Urea Nitrogen 57 mg/dl Creatinine 1.62 mg/dl Est Creatinine Clear Calc Drug Dose 53.0 ml/min Estimated GFR () 47.4 Estimated GFR (Non- 40.9 BUN/Creatinine Ratio 35.4 Random Glucose 334 mg/dl Calcium Level 6.9 mg/dl Beta-Hydroxybutyric Acid 5.33 mg/dL Test 04/15/17 11:49 Bedside Glucose 328 mg/dl Assessment & Plan Bulky but limited stage small cell lung carcinoma. He was treated with 1 dose of carboplatinum and irinotecan and remains cytopenic. Radiation has been on hold the Neupogen will be given. Supportive care continues. I really would expect his blood counts to recover within the next 2 or 3 days.
--- NOTE | 2017-04-15 12:30 | Clinical Documentation Query ---
QUERY 1 OF [address] CHAWLA, In your clinical opinion is this patient being managed for: ( x ) pancytopenia due to chemotherapy ( ) Not Agree ( ) Other explanation of clinical findings (Please Explain) ( ) Unable to determine (Please Define) ( ) Need to Discuss The medical record reflects the following clinical findings, treatment, and risk factors. Clinical Indicators: WBC 0.17, Hgb 10.4, Hct 30.4, plts 36. Pt undergoing chemotherapy treatments Treatment: monitor CBC, neutropenic precautions, hem/onc consult Risk Factors:lung cancer, chemotherapy QUERY 2 OF 2 In your clinical opinion is this patient being managed for: ( x ) Acute kidney failure ( ) Not Agree ( ) Other explanation of clinical findings (Please Explain) ( ) Unable to determine (Please Define) ( ) Need to Discuss The medical record reflects the following clinical findings, treatment, and risk factors. Clinical Indicators: Initial Cr 1.4 which has trended up to Cr 1.62. Review of historical Cr baseline range revealed 1.09-1.27 Treatment: 1L NSS bolus in ER, monitor PRP's Risk Factors: DM, CKD, lung cancer, neutropenic fever Please clarify and document your clinical opinion in the progress notes and discharge summary. Terms such as "probable", "suspected", "likely", "questionable", "possible", or "still to be ruled out" are acceptable. IF IN AGREEMENT, YOU MUST DOCUMENT ABOVE DIAGNOSTIC STATEMENT IN DAILY PROGRESS NOTES AND DISCHARGE SUMMARY. This document is not part of the patient's record. Thank You, Ana Wing, RN [phone]
--- NOTE | 2017-04-15 12:31 | Clinical Documentation Query ---
QUERY 1 OF [address] PALMER, In your clinical opinion is this patient being managed for: ( xx ) pancytopenia due to chemotherapy ( ) Not Agree ( ) Other explanation of clinical findings (Please Explain) ( ) Unable to determine (Please Define) ( ) Need to Discuss The medical record reflects the following clinical findings, treatment, and risk factors. Clinical Indicators: WBC 0.17, Hgb 10.4, Hct 30.4, plts 36. Pt undergoing chemotherapy treatments Treatment: monitor CBC, neutropenic precautions, hem/onc consult Risk Factors:lung cancer, chemotherapy QUERY 2 OF 2 In your clinical opinion is this patient being managed for: ( xx ) Acute kidney failure ( ) Not Agree ( ) Other explanation of clinical findings (Please Explain) ( ) Unable to determine (Please Define) ( ) Need to Discuss The medical record reflects the following clinical findings, treatment, and risk factors. Clinical Indicators: Initial Cr 1.4 which has trended up to Cr 1.62. Review of historical Cr baseline range revealed 1.09-1.27 Treatment: 1L NSS bolus in ER, monitor PRP's Risk Factors: DM, CKD, lung cancer, neutropenic fever Please clarify and document your clinical opinion in the progress notes and discharge summary. Terms such as "probable", "suspected", "likely", "questionable", "possible", or "still to be ruled out" are acceptable. IF IN AGREEMENT, YOU MUST DOCUMENT ABOVE DIAGNOSTIC STATEMENT IN DAILY PROGRESS NOTES AND DISCHARGE SUMMARY. This document is not part of the patient's record. Thank You, Ana Wing, RN [phone]
--- NOTE | 2017-04-15 14:44 | Family Medicine Progress Note ---
Progress Note Date of Service Apr 15, 2017. Subjective Pt evaluation today including: conversation w/ patient Giacomo was very somnolent during our conversation today. He was sleeping but easily arousable. He denied any pain. He said everything was fine when he got home to his knowledge. According to the chart, his caregivers thought he looked worse and recommended he come back to the hospital. Constitutional: No fever, No chills Eyes: No worsening of vision Respiratory: + cough, + dyspnea at rest Cardiovascular: No chest pain Abdomen: No pain, No nausea Endo: + fatigue All Other Systems: Reviewed and Negative Medications Current Inpatient Medications Medications (Trade) Dose Ordered Sig/Michel Route Start Time Stop Time Status Last Admin Dose Admin Acetaminophen (Tylenol Tab) 650 mg Q4H PRN PO 04/14/17 21:00 05/14/17 20:59 Magnesium Hydroxide (Milk Of Magnesia Susp) 30 ml Q6H PRN PO 04/14/17 21:00 05/14/17 20:59 Polyethylene (Miralax Powder Packet) 17 gm DAILY PRN PO 04/14/17 21:00 05/14/17 20:59 Ondansetron HCl (Zofran Inj) 4 mg Q6H PRN IV 04/14/17 21:00 05/14/17 20:59 Insulin Aspart (novoLOG ASPART) SLIDING SCALE If C... ACHS SC 04/14/17 21:00 05/14/17 20:59 04/15/17 13:58 6 UNITS Glucose (Glucose 40% Gel) 15-30 GRAMS 15 GRAMS... UD PRN PO 04/14/17 21:00 05/14/17 20:59 Glucose (Glucose Chew Tab) 4-8 Tablets 4 Tabl... UD PRN PO 04/14/17 21:00 05/14/17 20:59 Dextrose (Dextrose 50% 50ML Syringe) 25-50ML OF 50% DW IV FOR... UD PRN IV 04/14/17 21:00 05/14/17 20:59 Glucagon (Glucagon Inj) 1 mg UD PRN SQ 04/14/17 21:00 05/14/17 20:59 Albuterol (Ventolin Hfa Inhaler) 2 puffs Q4H INH 04/15/17 00:00 05/15/17 00:00 04/15/17 12:44 2 PUFFS Allopurinol (Zyloprim Tab) 200 mg DAILY PO 04/15/17 08:00 05/15/17 08:59 04/15/17 07:49 200 MG Amlodipine Besylate (Norvasc Tab) 5 mg QAM PO 04/15/17 08:00 05/15/17 08:59 04/15/17 07:48 5 MG Aspirin (Ecotrin Tab) 81 mg DAILY PO 04/15/17 08:00 05/15/17 08:59 04/15/17 07:45 81 MG Atorvastatin Calcium (Lipitor Tab) 40 mg DAILY PO 04/15/17 08:00 05/15/17 08:59 04/15/17 07:47 40 MG Budesonide/ Formoterol Fumarate (Symbicort 160/ 4.5 Inh) 2 puffs BID INH 04/15/17 08:00 05/15/17 07:59 04/15/17 07:43 2 PUFFS Furosemide (Lasix Tab) 20 mg DAILY PO 04/15/17 08:00 05/15/17 08:59 04/15/17 07:46 20 MG Hydroxyzine HCl (Vistaril Tab) 25 mg HSZ PRN PO 04/14/17 21:00 05/14/17 20:59 04/15/17 00:40 25 MG Nicotine (Nicoderm Cq 21MG Patch) 1 patch DAILY TD 04/15/17 08:00 05/15/17 08:59 Tiotropium [place] (Spiriva Handihaler Inhaler) 1 puff QAM INH 04/15/17 08:00 05/15/17 08:59 04/15/17 07:43 1 PUFF Miscellaneous Information (Consult) 1 ea UD PRN N/A 04/14/17 21:00 05/14/17 20:59 Piperacillin Sod/ Tazobactam Sod 4.5 gm/Dextrose 120 ml @ 30 mls/hr Q8H IV 04/15/17 04:00 04/17/17 03:59 04/15/17 12:43 30 MLS/HR Miscellaneous Information (Consult) 1 ea UD PRN N/A 04/14/17 21:00 05/14/17 20:59 Albuterol/ Ipratropium (Duoneb) 3 ml QIDR INH 04/15/17 08:00 05/15/17 07:59 04/15/17 11:09 3 ML Guaifenesin (Organidin Nr Tab) 200 mg Q4H PO 04/15/17 00:00 05/15/17 00:00 04/15/17 12:45 200 MG Methylprednisolone Sodium Succinate 60 mg/Syringe 0.96 ml @ 1.5 mls/min Q8H IV 04/15/17 00:00 05/15/17 00:00 04/15/17 07:53 1.5 MLS/MIN Insulin Glargine (Lantus Solostar Pen) 12 units BID SC 04/14/17 21:00 05/14/17 20:59 04/15/17 08:03 12 UNITS Miscellaneous (Remove Nicoderm Patch) 1 ea DAILY@0759 N/A 04/15/17 07:59 05/15/17 07:58 Heparin Sodium (Porcine) (Heparin 100 Unit/ml 5ml Flush) 5 ml PRN PRN IV 04/15/17 04:00 05/15/17 03:59 04/15/17 09:22 5 ML Filgrastim (Neupogen Sq) 480 mcg DAILY SC 04/15/17 14:00 04/18/17 13:59 Objective Vital Signs Date Time Temp Pulse Resp B/P (MAP) Pulse Ox O2 Delivery O2 Flow Rate FiO2 04/15/17 14:12 36.6 102 18 130/62 (84) 96 Nasal Cannula 3.0 04/15/17 11:26 36.6 98 20 100/62 (75) 90 04/15/17 11:09 92 16 91 BiPAP/CPAP 4.0 04/15/17 10:50 BiPAP 04/15/17 08:27 94 Nasal Cannula 2.0 04/15/17 08:25 Nasal Cannula 2.0 04/15/17 08:25 84 Room Air 04/15/17 07:17 36.7 102 18 111/72 (85) 94 Room Air 04/15/17 07:07 105 18 91 Room Air 04/15/17 04:33 37.6 109 20 98/57 (71) 93 Room Air 04/15/17 00:00 BiPAP 04/14/17 22:44 37.3 114 20 133/63 96 Room Air 04/14/17 22:15 37.3 114 20 133/63 (86) 94 Nasal Cannula 2.0 04/14/17 20:02 97 Nasal Cannula 2.0 04/14/17 19:18 37.1 04/14/17 18:59 37.9 114 24 93 Room Air 04/14/17 18:43 120 120/61 120 159/77 04/14/17 17:55 119 04/14/17 17:39 37.3 121 20 123/57 93 Room Air Physical Exam General Appearance: WD/WN, + mild distress, + obese Eyes: normal inspection, PERRL ENT: hearing grossly normal Neck: supple, no JVD Respiratory/Chest: no respiratory distress, no accessory muscle use, + rhonchi Cardiovascular: regular rate, rhythm, no murmur Abdomen: normal bowel sounds, non tender, soft Extremities: non-tender, no pedal edema Neurologic/Psychiatric: alert, normal mood/affect Skin: no rash, + pertinent finding (christelle K's diffusely over body) Laboratory Results Last 24 Hours Test 04/14/17 18:42 04/14/17 18:45 04/14/17 19:45 04/14/17 23:05 Bedside Glucose 133 mg/dl 149 mg/dl White Blood Count 0.17 K/uL Red Blood Count 3.32 M/uL Hemoglobin 10.4 g/dL Hematocrit 30.4 % Mean Corpuscular Volume 91.6 fL Mean Corpuscular Hemoglobin 31.3 pg Mean Corpuscular Hemoglobin Concent 34.2 g/dl RDW Standard Deviation 44.0 fL RDW Coefficient of Variation 13.0 % Platelet Count 36 K/uL Mean Platelet Volume 10.2 fL Prothrombin Time 11.1 SECONDS Prothromb Time International Ratio 1.1 Activated Partial Thromboplast Time 25.5 SECONDS Partial Thromboplastin Ratio 1.0 Sodium Level 133 mmol/L Potassium Level 4.1 mmol/L Chloride Level 101 mmol/L Carbon Dioxide Level 27 mmol/L Anion Gap 5.0 mmol/L Blood Urea Nitrogen 56 mg/dl Creatinine 1.40 mg/dl Est Creatinine Clear Calc Drug Dose 61.3 ml/min Estimated GFR () 56.6 Estimated GFR (Non- 48.8 BUN/Creatinine Ratio 39.9 Random Glucose 132 mg/dl Calcium Level 7.7 mg/dl Magnesium Level 1.4 mg/dl Total Bilirubin 1.1 mg/dl Direct Bilirubin 0.4 mg/dl Aspartate Amino Transf (AST/SGOT) 23 U/L Alanine Aminotransferase (ALT/SGPT) 57 U/L Alkaline Phosphatase 70 U/L Troponin I < 0.015 ng/ml Total Protein 5.6 gm/dl Albumin 2.4 gm/dl Lipase 48 U/L Thyroid Stimulating Hormone (TSH) 0.722 uIu/ml Lactic Acid Level 2.4 mmol/L Test 04/15/17 03:01 04/15/17 04:30 04/15/17 07:34 04/15/17 07:49 Lactic Acid Level 1.1 mmol/L Random Vancomycin Level 38.9 mcg/ml Urine Color YELLOW Urine Appearance CLEAR Urine pH 5.0 Urine Specific [place] 1.024 Urine Protein NEG Urine Glucose (UA) NEG Urine Ketones NEG Urine Occult Blood NEG Urine Nitrite NEG Urine Bilirubin NEG Urine Urobilinogen NEG Urine Leukocyte Esterase NEG Bedside Glucose 326 mg/dl White Blood Count 0.40 K/uL Red Blood Count 3.04 M/uL Hemoglobin 9.3 g/dL Hematocrit 28.1 % Mean Corpuscular Volume 92.4 fL Mean Corpuscular Hemoglobin 30.6 pg Mean Corpuscular Hemoglobin Concent 33.1 g/dl RDW Standard Deviation 44.5 fL RDW Coefficient of Variation 13.2 % Platelet Count 31 K/uL Mean Platelet Volume 10.8 fL Sodium Level 130 mmol/L Potassium Level 4.5 mmol/L Chloride Level 96 mmol/L Carbon Dioxide Level 25 mmol/L Anion Gap 9.0 mmol/L Blood Urea Nitrogen 57 mg/dl Creatinine 1.62 mg/dl Est Creatinine Clear Calc Drug Dose 53.0 ml/min Estimated GFR () 47.4 Estimated GFR (Non- 40.9 BUN/Creatinine Ratio 35.4 Random Glucose 334 mg/dl Calcium Level 6.9 mg/dl Beta-Hydroxybutyric Acid 5.33 mg/dL Test 04/15/17 11:49 Bedside Glucose 328 mg/dl Assessment and Plan Around 330PM, I was called by the nurse to meet w/the patients daughter. She had multiple concerns and was very hostile initially, stating "you [facility] doctors do not communicate" and that there has been so many things happening leading to an inappropriate discharge on Thursday. Her first concern was why the port for chemo had not been used, and why chemo is spaced so far apart. We discussed how chemo works and needs time to work so doses are spread, and about two weeks after a dose of chemo is given, the blood counts can drop low and we wait for them to come back up before giving another dose of chemo. We went through the EMR of the last admission from admission date to biopsy to port placement to chemo administration, which was 04/03/17. She was also concerned about the amount of chemo drugs, and I clarified that there were two separate medications given and per the EMR looks like they were given in the afternoon about an hour apart. We discussed how these medications work differently and may be on different cycles, it just depends on a patients reactions and lab values. She was then concerned about his bilateral arm swelling while in the hospital, and if it was lymphedema. She was concerned because of someone she knew who had this in the arm and it was not treated well, and how this area does not have many doctors who deal with lymphedema. She reports when they got home yesterday his arm swelling had completely resolved, and ever since coming back to the ED they have been very swollen. We discussed how currently they do not display any evidence of infection, but the pt has noticed a small area of redness on the inner R forearm, and we agreed we would monitor this try to keep his arms elevated. We discussed how another cause of this could be low albumin, which is causing fluid to shift out of his vessels into his arms, and how we should focus on improving his nutrition as he has not been eating well lately. He does not like the diabetic diet food, so we will switch to regular diet. She was also concerned about him being unable to obtain an MRI of the brain to evaluate if the cancer has spread to his brain. She was wondering why we cannot get a PET-CT while he is an inpatient. I said I would have to discuss this with Oncology before giving a definitive answer. She was also concerned about his feet due to his poor toe hygiene. He used to see a [facility] in [place]. I advised her typically they do not see patients in the hospital but offered a wound care referral. She was concerned about his inhalers as well, since he is only getting his nebulizers and does not have his inhalers at home. I said I would have to go through his medication list to review this. Her main concern was the amount of Drs. her father has seen and how hard it is to keep them all straight. I informed her at this point, the only physicians involved are myself, my attending Dr. Anna, and the Oncology team Dr. Abernathy & Dr. Ambriz. We discussed how radiation is on hold for now. She says she is concerned that once the patient says "he is done with all this" then he will stop all treatment, and says "we have a small amount of wiggle room." After our conversation, all questions were answered, I told the patient and his daughter to have the RN contact me if they had any further questions. Problem List: Neutropenic Fever - Will continue with Vanc & Zosyn - Neutropenic precautions - Daily CBC w/diff - Cultures so far unremarkable Acute on chronic hypercapnic respiratory failure - Had multiple ABG's during last admission showing he retains CO2 - Likely needs another 2-step before DC, to wear O2 throughout the day and BiPAP at night - Continue Guaifenisen - Duonebs regularly + home Symbicort & Spiriva - Continue Solu-Medrol 60mg IV q8h for today Diarrhea - C Diff negative - Will stop PO Vancomycin Small Cell Lung Ca - Appreciate Hem-Onc consultation. Will discuss w/them the PET-CT / Brain MRI issue as noted above. - Radiation on hold for now. Necrotic left first toe - Wound Care Consult - Left lower extremity arterial doppler Prerenal azotemia - Cr of 1.12 on discharge --> Now 1.62 - NS @ 125 mls/hr DM - During last admission, ended up on Lantus 50mg BID w/sliding scale of CF7, CR 2. Will increase to match this. - He adamantly does not want a diabetic diet, so I will change to a regular diet Gout - Continue Home Allopurinol HTN - Continue Home Amlodipine CHF - Continue Home Lasix 20mg PO Daily' CAD - Continue Home Aspirin HLD - Continue Home Lipitor Tobacco Use - Quit 3 days prior to last admission - Nicotine patch Insomnia - Vistaril DVT - SCDs - No Heparin or Lovenox due to Thrombocytopenia - Was on Lovenox on discharge but at this time will hold chemical anticoagulation and discuss with Heme/Onc tomorrow Code Status - Full Resuscitation Resident Physician Supervision Note: I interviewed and examined the patient. Discussed with Dr. Rollins and agree with findings and plan as documented in the note. 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 he was slightly hypoxic and he does require CPAP this morning he is drowsy he does arouse and make eye contact and does follow purposeful commands his neutrophil count is likely very low still as his total white count is 0.4 he has hyperglycemia with a glucose of 300 Temp 37 8 pulse 102 respiration 18 BP 111/72 O2 sat 94 on room air his initial chest x-rays without infiltrate Cardiac exam is distant regular he is a well-healed suprasternal scar from his VATS procedure his lungs sound clear but is not taking the biggest deep breaths he is wearing CPAP at this time Neutropenic fever the patient be continued on Zosyn therapy will employ her oncologist to determine whether the he needs any O'Mal rescue with Neupogen or Neulasta continuing treatment for his COPD and adjusting sliding scale as his glucose has been in the 300s Documented By: Wong Anna Resident Tracking Resident Involvement: Resident Care Provided Care Provided: Adult Hospital Medicine
[2017-04-15] MEDS: FILGRASTIM 480 MCG/1.6 ML VIAL SC SCH (14:47)
[2017-04-15] MEDS ORDERED: INSULIN GLARGINE SOLOSTAR 100 UNITS/ML 3 ML PEN SC SCH (20:00)
[2017-04-15] MEDS: BOOST GLUCOSE CONTROL PO SCH (20:00)
[2017-04-16] VITALS (10 sets, daily range): BP systolic 84–134; BP diastolic 48–67; PULSE 71–120; TEMP 36.4–36.9; O2SAT 93–98
[2017-04-16] MEDS: ALBUTEROL HFA 8 GM INHALER INH SCH ×4 (00:12→11:48)
[2017-04-16] MEDS: GUAIFENESIN 200 MG TAB PO SCH ×7 (00:12→23:30)
[2017-04-16] MEDS: METHYLPREDNISOLONE IV 60 MG in SYRINGE 0 ML IV SCH ×2 (00:13→07:49)
[2017-04-16] MEDS: PIPERACILL/TAZOBAC IV 4.5 GM in DEXTROSE 5% 100ML 100 ML IV SCH ×3 (04:29→20:08)
[2017-04-16 05:51] LABS: HEMATOCRIT 27.5 % (42-52); HEMOGLOBIN 9.2 g/dL (14.0-18.0); MEAN CELL VOLUME 90.5 fL (80-100); MEAN CORPUSCULAR HEMOGLOBIN 30.3 pg (25-34); MEAN CORPUSCULAR HGB CONC 33.5 g/dl (32-36); MEAN PLATELET VOLUME 10.8 fL (7.4-10.4); NUCLEATED RED BLOOD CELL ABS 0.05 K/uL (0-0); PLATELET COUNT 37 K/uL (130-400); RED CELL DISTRIBUTION WIDTH CV 12.9 % (11.5-14.5); WHITE BLOOD COUNT 0.86 K/uL (4.8-10.8)
[2017-04-16 06:34] LABS: CALCIUM 6.9 mg/dl (8.5-10.1); CREATININE 1.75 mg/dl (0.60-1.40); POTASSIUM 3.4 mmol/L (3.5-5.1); URIC ACID 3.4 mg/dl (2.6-7.2)
[2017-04-16] MEDS: ALBUT/IPRATROP 3MG/0.5MG NEB 3 ML VIAL INH SCH ×4 (06:55→19:51)
[2017-04-16] MEDS: ATORVASTATIN 20 MG TAB PO SCH (07:48)
[2017-04-16] MEDS: FUROSEMIDE 20 MG TAB PO SCH (07:49)
[2017-04-16] MEDS: TIOTROPIUM BROMIDE 5 PUFF/90 MCG INH INH SCH (07:49)
[2017-04-16] MEDS: BUDESONIDE/FORMOTEROL FUMARATE 160/4.5 60 PUFFS/INHALER INH SCH ×2 (07:49→20:09)
[2017-04-16] MEDS: ASPIRIN 81 MG ECTAB PO SCH (07:50)
[2017-04-16] MEDS: AMLODIPINE BESYLATE 5 MG TAB PO SCH (07:50)
[2017-04-16] MEDS: FILGRASTIM 480 MCG/1.6 ML VIAL SC SCH (07:56)
[2017-04-16] MEDS: NICOTINE 21 MG/24 HR TDSY TD SCH (07:58)
[2017-04-16] MEDS: BOOST GLUCOSE CONTROL PO SCH ×2 (07:59→20:00)
[2017-04-16] MEDS: INSULIN ASPART 100 UNITS/ML 3 ML PEN SC SCH ×4 (08:50→20:29)
[2017-04-16] MEDS: INSULIN GLARGINE SOLOSTAR 100 UNITS/ML 3 ML PEN SC SCH ×2 (08:51→20:31)
--- NOTE | 2017-04-16 09:08 | Family Medicine Progress Note ---
Progress Note Date of Service Apr 16, 2017. Subjective Pt evaluation today including: conversation w/ patient Giacomo felt and looked better today. He was sitting out in the chair and breathing comfortably. Says he wore his BiPAP for about 7 hours last night and finds it helpful. He reports he is still interested in pursuing chemotherapy / radiation eventually. He did however decline a brain MRI. Attempted to call his daugther, no phone number in chart, and no answer to pt's home line. Constitutional: No fever, No chills Eyes: No worsening of vision ENT: No hearing loss Respiratory: No cough, No sputum, No shortness of breath Cardiovascular: No chest pain All Other Systems: Reviewed and Negative Medications Current Inpatient Medications Medications (Trade) Dose Ordered Sig/Michel Route Start Time Stop Time Status Last Admin Dose Admin Acetaminophen (Tylenol Tab) 650 mg Q4H PRN PO 04/14/17 21:00 05/14/17 20:59 Magnesium Hydroxide (Milk Of Magnesia Susp) 30 ml Q6H PRN PO 04/14/17 21:00 05/14/17 20:59 Polyethylene (Miralax Powder Packet) 17 gm DAILY PRN PO 04/14/17 21:00 05/14/17 20:59 Ondansetron HCl (Zofran Inj) 4 mg Q6H PRN IV 04/14/17 21:00 05/14/17 20:59 Insulin Aspart (novoLOG ASPART) SLIDING SCALE If C... ACHS SC 04/14/17 21:00 05/14/17 20:59 04/16/17 08:50 20 UNITS Glucose (Glucose 40% Gel) 15-30 GRAMS 15 GRAMS... UD PRN PO 04/14/17 21:00 05/14/17 20:59 Glucose (Glucose Chew Tab) 4-8 Tablets 4 Tabl... UD PRN PO 04/14/17 21:00 05/14/17 20:59 Dextrose (Dextrose 50% 50ML Syringe) 25-50ML OF 50% DW IV FOR... UD PRN IV 04/14/17 21:00 05/14/17 20:59 Glucagon (Glucagon Inj) 1 mg UD PRN SQ 04/14/17 21:00 05/14/17 20:59 Albuterol (Ventolin Hfa Inhaler) 2 puffs Q4H INH 3/7/18 00:00 05/15/17 00:00 04/16/17 07:51 2 PUFFS Amlodipine Besylate (Norvasc Tab) 5 mg QAM PO 04/15/17 08:00 05/15/17 08:59 04/16/17 07:50 5 MG Aspirin (Ecotrin Tab) 81 mg DAILY PO 04/15/17 08:00 05/15/17 08:59 04/16/17 07:50 81 MG Atorvastatin Calcium (Lipitor Tab) 40 mg DAILY PO 04/15/17 08:00 05/15/17 08:59 04/16/17 07:48 40 MG Budesonide/ Formoterol Fumarate (Symbicort 160/ 4.5 Inh) 2 puffs BID INH 04/15/17 08:00 05/15/17 07:59 04/16/17 07:49 2 PUFFS Furosemide (Lasix Tab) 20 mg DAILY PO 04/15/17 08:00 05/15/17 08:59 04/16/17 07:49 20 MG Hydroxyzine HCl (Vistaril Tab) 25 mg HSZ PRN PO 04/14/17 21:00 05/14/17 20:59 04/15/17 00:40 25 MG Nicotine (Nicoderm Cq 21MG Patch) 1 patch DAILY TD 04/15/17 08:00 05/15/17 08:59 Tiotropium [place] (Spiriva Handihaler Inhaler) 1 puff QAM INH 04/15/17 08:00 05/15/17 08:59 04/16/17 07:49 1 PUFF Piperacillin Sod/ Tazobactam Sod 4.5 gm/Dextrose 120 ml @ 30 mls/hr Q8H IV 04/15/17 04:00 04/17/17 03:59 04/16/17 04:29 30 MLS/HR Miscellaneous Information (Consult) 1 ea UD PRN N/A 04/14/17 21:00 05/14/17 20:59 Albuterol/ Ipratropium (Duoneb) 3 ml QIDR INH 04/15/17 08:00 05/15/17 07:59 04/16/17 06:55 3 ML Guaifenesin (Organidin Nr Tab) 200 mg Q4H PO 04/15/17 00:00 05/15/17 00:00 04/16/17 07:51 200 MG Methylprednisolone Sodium Succinate 60 mg/Syringe 0.96 ml @ 1.5 mls/min Q8H IV 04/15/17 00:00 05/15/17 00:00 04/16/17 07:49 1.5 MLS/MIN Miscellaneous (Remove Nicoderm Patch) 1 ea DAILY@0759 N/A 04/15/17 07:59 05/15/17 07:58 Heparin Sodium (Porcine) (Heparin 100 Unit/ml 5ml Flush) 5 ml PRN PRN IV 04/15/17 04:00 05/15/17 03:59 04/16/17 08:47 5 ML Filgrastim (Neupogen Sq) 480 mcg DAILY SC 04/15/17 14:00 04/18/17 13:59 04/16/17 07:56 480 MCG Insulin Glargine (Lantus Solostar Pen) 40 units BID SC 04/15/17 20:00 05/15/17 19:59 04/16/17 08:51 40 UNITS Enteral Nutritional Formula (Boost Glucose Control) 1 can BID PO 04/15/17 20:00 05/15/17 19:59 Potassium Chloride (Klor-Con Tab) 40 meq BID PO 04/16/17 20:00 05/16/17 19:59 Objective Vital Signs Date Time Temp Pulse Resp B/P (MAP) Pulse Ox O2 Delivery O2 Flow Rate FiO2 04/16/17 07:51 36.7 106 20 111/56 (74) 94 Nasal Cannula 2.0 84/48 (60) 04/16/17 07:47 109 16 94 Room Air 04/16/17 04:18 36.6 93 20 122/67 (85) 94 CPAP 04/16/17 00:05 CPAP 3.0 04/16/17 00:00 36.6 71 20 131/65 (87) 93 CPAP 04/15/17 19:18 36.5 101 24 129/64 (85) 97 BiPAP 04/15/17 19:02 93 16 91 Room Air 04/15/17 16:00 92 Nasal Cannula 3.0 04/15/17 15:16 89 16 92 Room Air 04/15/17 14:12 36.6 102 18 130/62 (84) 96 Nasal Cannula 3.0 04/15/17 11:26 36.6 98 20 100/62 (75) 90 04/15/17 11:09 92 16 91 BiPAP/CPAP 4.0 Physical Exam General Appearance: WD/WN, no apparent distress, + obese Eyes: normal inspection, PERRL ENT: hearing grossly normal Neck: supple, no JVD Respiratory/Chest: lungs clear, normal breath sounds, no respiratory distress Cardiovascular: regular rate, rhythm, no murmur Abdomen: normal bowel sounds, non tender, soft Extremities: non-tender, + pedal edema, + pertinent finding (bilateral arm edema) Neurologic/Psychiatric: alert, normal mood/affect, oriented x 3 Skin: + pertinent finding (innumerous christelle k's overbody, poor feet hygiene as well) Laboratory Results Last 24 Hours Test 04/15/17 11:49 04/15/17 16:52 04/15/17 20:04 04/16/17 05:28 Bedside Glucose 328 mg/dl 298 mg/dl 276 mg/dl White Blood Count 0.86 K/uL Red Blood Count 3.04 M/uL Hemoglobin 9.2 g/dL Hematocrit 27.5 % Mean Corpuscular Volume 90.5 fL Mean Corpuscular Hemoglobin 30.3 pg Mean Corpuscular Hemoglobin Concent 33.5 g/dl Platelet Count 37 K/uL Mean Platelet Volume 10.8 fL RDW Standard Deviation 43.0 fL RDW Coefficient of Variation 12.9 % Nucleated RBC Absolute Count (auto) 0.05 K/uL Neutrophils % (Manual) 73.3 % Lymphocytes % (Manual) 12.6 % Monocytes % (Manual) 7.7 % Eosinophils % (Manual) 0.5 % Metamyelocytes % 4.1 % Myelocytes % 1.8 % Nucleated Red Blood Cells % 5.5 % Neutrophils # (Manual) 0.63 K/uL Total Absolute Neutrophils 0.63 K/uL Lymphocytes # (Manual) 0.11 K/uL Total Absolute Lymphocytes 0.11 K/uL Monocytes # (Manual) 0.07 K/uL Eosinophils # (Manual) 0.00 K/uL Metamyelocytes # 0.04 K/uL Myelocytes # 0.02 K/uL Toxic Granulation 2+ Large Platelets 1+ Sodium Level 131 mmol/L Potassium Level 3.4 mmol/L Chloride Level 98 mmol/L Carbon Dioxide Level 26 mmol/L Anion Gap 7.0 mmol/L Blood Urea Nitrogen 59 mg/dl Creatinine 1.75 mg/dl Est Creatinine Clear Calc Drug Dose 49.0 ml/min Estimated GFR () 43.2 Estimated GFR (Non- 37.3 BUN/Creatinine Ratio 33.9 Random Glucose 149 mg/dl Uric Acid 3.4 mg/dl Calcium Level 6.9 mg/dl Magnesium Level 1.9 mg/dl Test 04/16/17 07:59 Bedside Glucose 212 mg/dl Assessment and Plan 76 yo M, on chemo for small cell lung Ca, with other comorbidities, w/ neutropenic fever. Neutropenic Fever - Will continue with IV Zosyn - Neutropenic precautions - Daily CBC w/diff - Cultures so far unremarkable Pancytopenia due to chemotherapy - Received chemo on 04/03/17 during last admission - Continue to monitor bloodwork - Appreciate hem-onc recc's Acute on chronic hypercapnic respiratory failure - Had multiple ABG's during last admission showing he retains CO2 - Likely needs another 2-step before DC, to wear O2 throughout the day and BiPAP at night - Continue Guaifenisen - Duonebs regularly + home Symbicort & Spiriva - Continue Solu-Medrol 60mg IV q8h for today Bilateral arm edema - Pt declined an US of his arms to evaluate for clot, which he does not feel he has - Lasix 20mg IV today Small Cell Lung Ca - Appreciate Hem-Onc consultation. Patient declined brain imaging today. - Radiation on hold for now. Necrotic left first toe - Wound Care Consult - Left lower extremity arterial doppler completed Acute renal failure - Cr of 1.12 on discharge --> Now 1.7 - Daily BMP DM - During last admission, ended up on Lantus 50mg BID w/sliding scale of CF7, CR 2. Will increase to match this. - He adamantly does not want a diabetic diet, so I will change to a regular diet Hx of Tumour Lysis Syndrome - Stopped Allopurinol, Uric acid has normalized as well HTN - Continue Home Amlodipine CHF - Continue Home Lasix 20mg PO Daily' CAD - Continue Home Aspirin HLD - Continue Home Lipitor Tobacco Use - Quit 3 days prior to last admission - Nicotine patch Insomnia - Vistaril DVT - SCDs - No Heparin or Lovenox due to Thrombocytopenia - Was on Lovenox on discharge but at this time will hold chemical anticoagulation and discuss with Heme/Onc tomorrow Code Status - Full Resuscitation Resident Physician Supervision Note: I interviewed and examined the patient. Discussed with Dr. Rollins and agree with findings and plan as documented in the note. Any exceptions or clarifications are listed here: None Patient is slightly more awake and alert today however still remains pancytopenic due to chemotherapy although his counts are improving his fever trend is going down and his breathing is much more easy however he still needs assistance of BiPAP most times when taking any resting in his room he does have mild acute kidney injury also during this hospital stay Vital signs are temp 36.7 pulse is slightly tachycardic at 106 respiration 20 BP 111/56 His cardiac exam is tachycardic there is no murmurs his lungs are decreased breath at the bases but he is morbidly obese his previous VATS scar of the suprasternal notch is healing well without signs of local cellulitis Neutropenic fever with pancytopenia from chemotherapy continue supportive care with antibiotic coverage and bone marrow stimulating agent to improve his neutropenia. There was some discussion about imaging of his brain as his family requested a PET scan which cannot be performed as an inpatient due to insurance restrictions we are from a contrast brain study which she declined due to claustrophobia Documented By: Wong Anna Resident Tracking Resident Involvement: Resident Care Provided Care Provided: Adult Hospital Medicine
[2017-04-16] MEDS ORDERED: POTASSIUM CHLORIDE 20 MEQ TABCR PO ONE (09:30)
[2017-04-16] MEDS ORDERED: FUROSEMIDE INJ 20 MG in SYRINGE 0 ML IV ONE (09:30)
[2017-04-16] MEDS ORDERED: PIPERACILL/TAZOBAC CONSULT ACTIVE PRN (11:45)
--- NOTE | 2017-04-16 11:49 | Hematology/Oncology Prog Note ---
Hematology/Onc Progress Note Date of Service Apr 16, 2017. Diagnoses Bulky limited stage small cell lung carcinoma Cytopenia secondary to therapy. Medications Medications Administered Medications (Trade) Dose Ordered Sig/Michel Route Start Time Stop Time Status Last Admin Dose Admin Sodium Chloride 1,000 ml @ 999 mls/hr Q1H1M STAT IV 04/14/17 17:53 04/14/17 18:53 DC 04/14/17 17:53 999 MLS/HR Cefepime HCl 2000 mg/Dextrose 122 ml @ 200 mls/hr NOW STAT IV 04/14/17 19:10 04/14/17 19:46 DC 04/14/17 19:35 200 MLS/HR Ondansetron HCl (Zofran Inj) 4 mg NOW STAT IV 04/14/17 19:34 04/14/17 19:35 DC 04/14/17 19:39 4 MG Levofloxacin (Levaquin / D5W) 750 mg NOW STAT IV 04/14/17 19:35 04/14/17 19:37 DC 04/14/17 19:53 750 MG Insulin Aspart (novoLOG ASPART) SLIDING SCALE If C... ACHS SC 04/14/17 21:00 05/14/17 20:59 04/16/17 08:50 20 UNITS Albuterol (Ventolin Hfa Inhaler) 2 puffs Q4H INH 04/15/17 00:00 05/15/17 00:00 04/16/17 07:51 2 PUFFS Allopurinol (Zyloprim Tab) 200 mg DAILY PO 04/15/17 08:00 04/15/17 16:40 DC 04/15/17 07:49 200 MG Amlodipine Besylate (Norvasc Tab) 5 mg QAM PO 04/15/17 08:00 05/15/17 08:59 04/16/17 07:50 5 MG Aspirin (Ecotrin Tab) 81 mg DAILY PO 04/15/17 08:00 05/15/17 08:59 04/16/17 07:50 81 MG Atorvastatin Calcium (Lipitor Tab) 40 mg DAILY PO 04/15/17 08:00 05/15/17 08:59 04/16/17 07:48 40 MG Budesonide/ Formoterol Fumarate (Symbicort 160/ 4.5 Inh) 2 puffs BID INH 04/15/17 08:00 05/15/17 07:59 04/16/17 07:49 2 PUFFS Furosemide (Lasix Tab) 20 mg DAILY PO 04/15/17 08:00 05/15/17 08:59 04/16/17 07:49 20 MG Hydroxyzine HCl (Vistaril Tab) 25 mg HSZ PRN PO 04/14/17 21:00 05/14/17 20:59 04/15/17 00:40 25 MG Tiotropium [place] (Spiriva Handihaler Inhaler) 1 puff QAM INH 04/15/17 08:00 05/15/17 08:59 04/16/17 07:49 1 PUFF Vancomycin HCl 2750 mg/Sodium Chloride 555 ml @ 200 mls/hr NOW ONCE IV 04/14/17 23:00 04/15/17 01:46 DC 04/14/17 22:58 200 MLS/HR Piperacillin Sod/ Tazobactam Sod 4.5 gm/Dextrose 120 ml @ 30 mls/hr Q8H IV 04/15/17 04:00 04/17/17 03:59 04/16/17 04:29 30 MLS/HR Vancomycin HCl (Vancomycin Oral Soln) 250 mg QID PO 04/14/17 23:00 04/15/17 06:20 DC 04/14/17 23:04 250 MG Albuterol/ Ipratropium (Duoneb) 3 ml QIDR INH 04/15/17 08:00 05/15/17 07:59 04/16/17 11:13 3 ML Guaifenesin (Organidin Nr Tab) 200 mg Q4H PO 04/15/17 00:00 05/15/17 00:00 04/16/17 07:51 200 MG Methylprednisolone Sodium Succinate 60 mg/Syringe 0.96 ml @ 1.5 mls/min Q8H IV 04/15/17 00:00 04/16/17 11:15 DC 04/16/17 07:49 1.5 MLS/MIN Magnesium Sulfate 1 gm/Prmx 100 ml @ 100 mls/hr TODAY@0000,2300 IV 04/14/17 23:00 04/15/17 00:59 DC 04/15/17 02:17 100 MLS/HR Piperacillin Sod/ Tazobactam Sod 4.5 gm/Dextrose 120 ml @ 200 mls/hr NOW ONCE IV 04/14/17 22:30 04/14/17 23:05 DC 04/14/17 22:57 200 MLS/HR Insulin Glargine (Lantus Solostar Pen) 12 units BID SC 04/14/17 21:00 04/15/17 14:40 DC 04/15/17 08:03 12 UNITS Raspberry (Raspberry Syrup 5ml Cup) 5 ml QID PO 04/14/17 23:00 04/15/17 06:20 DC 04/14/17 23:04 5 ML Heparin Sodium (Porcine) (Heparin 100 Unit/ml 5ml Flush) 5 ml PRN PRN IV 04/15/17 04:00 05/15/17 03:59 04/16/17 08:47 5 ML Filgrastim (Neupogen Sq) 480 mcg DAILY SC 04/15/17 14:00 04/18/17 13:59 04/16/17 07:56 480 MCG Insulin Glargine (Lantus Solostar Pen) 40 units BID SC 04/15/17 20:00 05/15/17 19:59 04/16/17 08:51 40 UNITS Subjective Much more alert today. Talkative. Denies headache. Denies any new shortness of breath or hemoptysis. His review of systems actually is quite unremarkable. Review of Systems: Constitutional: Negative for weight loss, night sweats, or fever Eyes: Negative for event change of vision ENT: Negative for epistaxis, nasal discharge, sore throat, or deafness Cardiovascular: Negative for chest pain, palpitations, dizziness, diaphoresis Respiratory: Negative for new shortness of breath,hemoptysis, or purulent cough Gastrointestinal: Negative for diarrhea, hematemesis, melena, nausea, vomiting , or dyspepsia Integumentary (skin): Negative for rash or jaundice discoloration Neurological: Negative for weakness, seizure activity, headache, or dizziness Lymphatic/Hematologic: Negative for petechiae, bleeding or new adenopathy Musculoskeletal: Negative for new joint or back pain Allergic/Immunologic: Negative for unusual rash or pruritis. Vital Signs Vital Signs Past 12 Hours Date Time Temp Pulse Resp B/P (MAP) Pulse Ox O2 Delivery O2 Flow Rate FiO2 04/16/17 11:13 113 16 98 Room Air 04/16/17 11:09 36.4 107 20 134/64 (87) 98 Nasal Cannula 3.0 04/16/17 08:00 Nasal Cannula 2.0 04/16/17 07:51 36.7 106 20 111/56 (74) 94 Nasal Cannula 2.0 84/48 (60) 04/16/17 07:47 109 16 94 Room Air 04/16/17 04:18 36.6 93 20 122/67 (85) 94 CPAP 04/16/17 00:05 CPAP 3.0 04/16/17 00:00 36.6 71 20 131/65 (87) 93 CPAP Physical Exam Constitutional: vitals are stable. Eyes: Eyes are ELOY EOMI without conjuctival erythema or icterus. ENT: External examination was negative for masses. Neck: Negative for masses or palpable thyromegaly Respiratory: Lung sounds were generally clear but decreased bilaterally Cardiovascular: Heart was RRR without significant murmur, gallops aoe rubs Gastrointestinal: No palpable hepatic or splenomegaly. The abdomen was soft with normal bowel sounds. Lymphatic system: there was no palpable peripheral lymphadenopathy Musculoskeletal System: The musculoskeletal system seemed concordant with age. Skin: The skin was negative for jaundice. Neurologic exam: The exam was negative for any focal findings. Deep tendon reflexes were equal and symmetrical. Psychiatric exam: Was essentially negative with normal mood and effect. Extremities:: Negative for edema. Marked lower extremity icthyosis Laboratory Last 24 Hours Test 04/15/17 11:49 04/15/17 16:52 04/15/17 20:04 04/16/17 05:28 Bedside Glucose 328 mg/dl 298 mg/dl 276 mg/dl White Blood Count 0.86 K/uL Red Blood Count 3.04 M/uL Hemoglobin 9.2 g/dL Hematocrit 27.5 % Mean Corpuscular Volume 90.5 fL Mean Corpuscular Hemoglobin 30.3 pg Mean Corpuscular Hemoglobin Concent 33.5 g/dl Platelet Count 37 K/uL Mean Platelet Volume 10.8 fL RDW Standard Deviation 43.0 fL RDW Coefficient of Variation 12.9 % Nucleated RBC Absolute Count (auto) 0.05 K/uL Neutrophils % (Manual) 73.3 % Lymphocytes % (Manual) 12.6 % Monocytes % (Manual) 7.7 % Eosinophils % (Manual) 0.5 % Metamyelocytes % 4.1 % Myelocytes % 1.8 % Nucleated Red Blood Cells % 5.5 % Neutrophils # (Manual) 0.63 K/uL Total Absolute Neutrophils 0.63 K/uL Lymphocytes # (Manual) 0.11 K/uL Total Absolute Lymphocytes 0.11 K/uL Monocytes # (Manual) 0.07 K/uL Eosinophils # (Manual) 0.00 K/uL Metamyelocytes # 0.04 K/uL Myelocytes # 0.02 K/uL Toxic Granulation 2+ Large Platelets 1+ Sodium Level 131 mmol/L Potassium Level 3.4 mmol/L Chloride Level 98 mmol/L Carbon Dioxide Level 26 mmol/L Anion Gap 7.0 mmol/L Blood Urea Nitrogen 59 mg/dl Creatinine 1.75 mg/dl Est Creatinine Clear Calc Drug Dose 49.0 ml/min Estimated GFR () 43.2 Estimated GFR (Non- 37.3 BUN/Creatinine Ratio 33.9 Random Glucose 149 mg/dl Uric Acid 3.4 mg/dl Calcium Level 6.9 mg/dl Magnesium Level 1.9 mg/dl Test 04/16/17 07:59 Bedside Glucose 212 mg/dl Assessment & Plan Seems to be doing much better. White count is slowly returning. Is afebrile. Yesterday he was barely talkative. I wondered whether we should do a brain scan or CT. I reviewed that with him today. He is much more alert and spontaneous today. After some discussion he asked to not do a brain scan and without neurologic deficit I would have to agree now particularly since he is much more alert. Supportive care continues. I suspect his white count will be very reasonable within the next 24-48 hours. Blood cultures are negative C. difficile is negative.
[2017-04-16] MEDS ORDERED: PIPERACILL/TAZOBAC IV 3.375 GM in DEXTROSE 5% 100ML 100 ML IV SCH (14:00)
[2017-04-16] MEDS: POTASSIUM CHLORIDE 20 MEQ TABCR PO SCH (20:10)
[2017-04-16] MEDS: hydrOXYzine HCL 25 MG TAB PO PRN (23:44)
[2017-04-17] VITALS (15 sets, daily range): BP systolic 107–164; BP diastolic 55–75; PULSE 84–115; TEMP 36.5–36.7; O2SAT 94–98
[2017-04-17] MEDS: PIPERACILL/TAZOBAC IV 4.5 GM in DEXTROSE 5% 100ML 100 ML IV SCH ×2 (03:34→12:04)
[2017-04-17 05:41] LABS: HEMATOCRIT 29.3 % (42-52); HEMOGLOBIN 9.9 g/dL (14.0-18.0); MEAN CELL VOLUME 89.9 fL (80-100); MEAN CORPUSCULAR HEMOGLOBIN 30.4 pg (25-34); MEAN CORPUSCULAR HGB CONC 33.8 g/dl (32-36); MEAN PLATELET VOLUME 10.1 fL (7.4-10.4); NUCLEATED RED BLOOD CELL ABS 0.02 K/uL (0-0); PLATELET COUNT 47 K/uL (130-400); RED CELL DISTRIBUTION WIDTH CV 12.8 % (11.5-14.5); WHITE BLOOD COUNT 3.44 K/uL (4.8-10.8)
[2017-04-17 06:13] LABS: CALCIUM 6.9 mg/dl (8.5-10.1); CREATININE 1.65 mg/dl (0.60-1.40); POTASSIUM 3.6 mmol/L (3.5-5.1)
[2017-04-17] MEDS: ALBUT/IPRATROP 3MG/0.5MG NEB 3 ML VIAL INH SCH ×4 (07:05→19:27)
[2017-04-17] MEDS: GUAIFENESIN 200 MG TAB PO SCH ×6 (08:35→23:32)
[2017-04-17] MEDS: AMLODIPINE BESYLATE 5 MG TAB PO SCH (08:36)
[2017-04-17] MEDS: ASPIRIN 81 MG ECTAB PO SCH (08:39)
[2017-04-17] MEDS: POTASSIUM CHLORIDE 20 MEQ TABCR PO SCH ×2 (08:39→20:00)
[2017-04-17] MEDS: ATORVASTATIN 20 MG TAB PO SCH (08:39)
[2017-04-17] MEDS: FUROSEMIDE 20 MG TAB PO SCH (08:39)
[2017-04-17] MEDS: BOOST GLUCOSE CONTROL PO SCH ×2 (08:39→20:56)
[2017-04-17] MEDS: BUDESONIDE/FORMOTEROL FUMARATE 160/4.5 60 PUFFS/INHALER INH SCH ×2 (08:40→20:52)
[2017-04-17] MEDS: TIOTROPIUM BROMIDE 5 PUFF/90 MCG INH INH SCH (08:41)
[2017-04-17] MEDS: NICOTINE 21 MG/24 HR TDSY TD SCH (08:42)
[2017-04-17] MEDS: INSULIN ASPART 100 UNITS/ML 3 ML PEN SC SCH ×4 (08:58→21:08)
[2017-04-17] MEDS: INSULIN GLARGINE SOLOSTAR 100 UNITS/ML 3 ML PEN SC SCH ×2 (08:59→21:08)
[2017-04-17] MEDS: FILGRASTIM 480 MCG/1.6 ML VIAL SC SCH (10:10)
--- NOTE | 2017-04-17 10:50 | Family Medicine Progress Note ---
Progress Note Date of Service Apr 17, 2017. Subjective Pt evaluation today including: conversation w/ patient Voiding: no voiding problems Witt ok today. He denied any new pain. Reports persistent swelling and now has new bruising and some redness on R inner arm. Constitutional: No fever Eyes: No worsening of vision ENT: No hearing loss Respiratory: No cough, No sputum, No dyspnea on exertion, No dyspnea at rest All Other Systems: Reviewed and Negative Medications Current Inpatient Medications Medications (Trade) Dose Ordered Sig/Michel Route Start Time Stop Time Status Last Admin Dose Admin Acetaminophen (Tylenol Tab) 650 mg Q4H PRN PO 04/14/17 21:00 05/14/17 20:59 Magnesium Hydroxide (Milk Of Magnesia Susp) 30 ml Q6H PRN PO 04/14/17 21:00 05/14/17 20:59 Polyethylene (Miralax Powder Packet) 17 gm DAILY PRN PO 04/14/17 21:00 05/14/17 20:59 Ondansetron HCl (Zofran Inj) 4 mg Q6H PRN IV 04/14/17 21:00 05/14/17 20:59 Insulin Aspart (novoLOG ASPART) SLIDING SCALE If C... ACHS SC 04/14/17 21:00 05/14/17 20:59 04/17/17 08:58 2 UNITS Glucose (Glucose 40% Gel) 15-30 GRAMS 15 GRAMS... UD PRN PO 04/14/17 21:00 05/14/17 20:59 Glucose (Glucose Chew Tab) 4-8 Tablets 4 Tabl... UD PRN PO 04/14/17 21:00 05/14/17 20:59 Dextrose (Dextrose 50% 50ML Syringe) 25-50ML OF 50% DW IV FOR... UD PRN IV 04/14/17 21:00 05/14/17 20:59 Glucagon (Glucagon Inj) 1 mg UD PRN SQ 04/14/17 21:00 05/14/17 20:59 Amlodipine Besylate (Norvasc Tab) 5 mg QAM PO 04/15/17 08:00 05/15/17 08:59 04/17/17 08:36 5 MG Aspirin (Ecotrin Tab) 81 mg DAILY PO 04/15/17 08:00 05/15/17 08:59 04/17/17 08:39 81 MG Atorvastatin Calcium (Lipitor Tab) 40 mg DAILY PO 04/15/17 08:00 05/15/17 08:59 04/17/17 08:39 40 MG Budesonide/ Formoterol Fumarate (Symbicort 160/ 4.5 Inh) 2 puffs BID INH 04/15/17 08:00 05/15/17 07:59 04/17/17 08:40 2 PUFFS Furosemide (Lasix Tab) 20 mg DAILY PO 04/15/17 08:00 05/15/17 08:59 04/17/17 08:39 20 MG Hydroxyzine HCl (Vistaril Tab) 25 mg HSZ PRN PO 04/14/17 21:00 05/14/17 20:59 04/16/17 23:44 25 MG Nicotine (Nicoderm Cq 21MG Patch) 1 patch DAILY TD 04/15/17 08:00 05/15/17 08:59 Tiotropium [place] (Spiriva Handihaler Inhaler) 1 puff QAM INH 04/15/17 08:00 05/15/17 08:59 04/17/17 08:41 1 PUFF Piperacillin Sod/ Tazobactam Sod 4.5 gm/Dextrose 120 ml @ 30 mls/hr Q8H IV 04/15/17 04:00 04/21/17 23:59 04/17/17 03:34 30 MLS/HR Miscellaneous Information (Consult) 1 ea UD PRN N/A 04/14/17 21:00 05/14/17 20:59 Albuterol/ Ipratropium (Duoneb) 3 ml QIDR INH 04/15/17 08:00 05/15/17 07:59 04/17/17 07:05 3 ML Guaifenesin (Organidin Nr Tab) 200 mg Q4H PO 04/15/17 00:00 05/15/17 00:00 04/17/17 08:35 200 MG Miscellaneous (Remove Nicoderm Patch) 1 ea DAILY@0759 N/A 04/15/17 07:59 05/15/17 07:58 Heparin Sodium (Porcine) (Heparin 100 Unit/ml 5ml Flush) 5 ml PRN PRN IV 04/15/17 04:00 05/15/17 03:59 04/17/17 00:15 5 ML Filgrastim (Neupogen Sq) 480 mcg DAILY SC 04/15/17 14:00 04/18/17 13:59 04/17/17 10:10 480 MCG Insulin Glargine (Lantus Solostar Pen) 40 units BID SC 04/15/17 20:00 05/15/17 19:59 04/17/17 08:59 40 UNITS Enteral Nutritional Formula (Boost Glucose Control) 1 can BID PO 04/15/17 20:00 05/15/17 19:59 Potassium Chloride (Klor-Con Tab) 40 meq BID PO 04/16/17 20:00 05/16/17 19:59 04/17/17 08:39 40 MEQ Prednisone (PredniSONE TAB) 60 mg Taper DAILY PO 04/17/17 08:00 05/04/17 07:59 04/17/17 08:36 60 MG Albuterol (Ventolin Hfa Inhaler) 2 puffs Q4H PRN INH 04/16/17 14:00 05/15/17 00:00 Objective Vital Signs Date Time Temp Pulse Resp B/P (MAP) Pulse Ox O2 Delivery O2 Flow Rate FiO2 04/17/17 12:07 36.5 114 18 140/63 (88) 94 Room Air 04/17/17 11:07 84 16 95 Room Air 04/17/17 10:26 95 Nasal Cannula 2.5 04/17/17 08:58 98 BiPAP 04/17/17 08:45 98 BiPAP 3.0 04/17/17 08:19 107/63 (78) 04/17/17 08:18 117/55 (75) 04/17/17 08:17 36.5 106 18 129/71 (90) 98 BiPAP 04/17/17 07:07 103 16 94 Room Air 04/17/17 04:28 36.5 101 20 119/57 (77) 97 CPAP 04/17/17 00:00 BiPAP 3.0 04/16/17 23:58 36.9 109 20 126/66 (86) 96 CPAP 114 108/64 (79) 120 94/58 (70) 04/16/17 19:35 99 16 93 Room Air 04/16/17 16:00 Nasal Cannula 3.0 04/16/17 14:29 111 16 95 Room Air 04/16/17 14:23 36.4 112 20 127/66 (86) 94 Nasal Cannula 3.0 123/62 (82) 103/66 (78) Physical Exam General Appearance: WD/WN, no apparent distress, + obese Eyes: normal inspection, PERRL ENT: hearing grossly normal Neck: supple, no JVD Respiratory/Chest: lungs clear, normal breath sounds, no respiratory distress Cardiovascular: regular rate, rhythm, no murmur Abdomen: normal bowel sounds, non tender, soft Extremities: non-tender, + pertinent finding (bilateral 2+ pitting edema of upper extremities) Neurologic/Psychiatric: alert, normal mood/affect, oriented x 3 Skin: + pertinent finding (erythema to inner R forearm with ecchymosis present) Lymphatic: + pertinent finding Laboratory Results Last 24 Hours Test 04/16/17 16:46 04/16/17 20:25 04/17/17 04:58 04/17/17 07:45 Bedside Glucose 236 mg/dl 165 mg/dl 102 mg/dl White Blood Count 3.44 K/uL Red Blood Count 3.26 M/uL Hemoglobin 9.9 g/dL Hematocrit 29.3 % Mean Corpuscular Volume 89.9 fL Mean Corpuscular Hemoglobin 30.4 pg Mean Corpuscular Hemoglobin Concent 33.8 g/dl Platelet Count 47 K/uL Mean Platelet Volume 10.1 fL RDW Standard Deviation 42.0 fL RDW Coefficient of Variation 12.8 % Nucleated RBC Absolute Count (auto) 0.02 K/uL Neutrophils % (Manual) 88.0 % Lymphocytes % (Manual) 4.0 % Monocytes % (Manual) 6.0 % Myelocytes % 2.0 % Nucleated Red Blood Cells % 0.6 % Neutrophils # (Manual) 3.02 K/uL Total Absolute Neutrophils 3.02 K/uL Lymphocytes # (Manual) 0.14 K/uL Total Absolute Lymphocytes 0.14 K/uL Monocytes # (Manual) 0.21 K/uL Myelocytes # 0.07 K/uL Toxic Granulation 2+ Large Platelets 1+ Sodium Level 133 mmol/L Potassium Level 3.6 mmol/L Chloride Level 101 mmol/L Carbon Dioxide Level 25 mmol/L Anion Gap 7.0 mmol/L Blood Urea Nitrogen 58 mg/dl Creatinine 1.65 mg/dl Est Creatinine Clear Calc Drug Dose 52.0 ml/min Estimated GFR () 46.4 Estimated GFR (Non- 40.0 BUN/Creatinine Ratio 35.1 Random Glucose 106 mg/dl Calcium Level 6.9 mg/dl Magnesium Level 2.0 mg/dl Test 04/17/17 11:22 Bedside Glucose 128 mg/dl Assessment and Plan 76 yo M, on chemo for small cell lung Ca, with other comorbidities, w/ neutropenic fever. Neutropenic Fever - Cultures negative thus far, counts improving, will stop Zosyn today - Neutropenic precautions - Daily CBC w/diff Pancytopenia due to chemotherapy - Received chemo on 04/03/17 during last admission - Continue to monitor bloodwork - Appreciate hem-onc recc's. Daughter has multiple queries regarding chemo, will request that Hem-Onc gets in touch with his daughter. Acute on chronic hypercapnic respiratory failure - Had multiple ABG's during last admission showing he retains CO2 - Likely needs another 2-step before DC, to wear O2 throughout the day and BiPAP at night - Continue Guaifenisen - Duonebs regularly + home Symbicort & Spiriva - Transitioned to PO prednisone w/taper - BiPAP whenever he is sleeping Bilateral arm edema - US of arms today - Continue to monitor Small Cell Lung Ca - Appreciate Hem-Onc consultation. Patient declined brain imaging - Radiation likely restarted next week w/chemo. Necrotic left first toe - Wound Care Consult - Left lower extremity arterial doppler completed Acute renal failure - Cr of 1.12 on discharge --> Now 1.7 - Daily BMP DM - BSGs have improved with change in Lantus - Will decrease to Lantus 40units in AM, 20 units in PM, with sliding scale Hx of Tumour Lysis Syndrome - Stopped Allopurinol, Uric acid has normalized as well Coronary artery disease / Hyperlipidemia - Continue Home Amlodipine, Lasix, Aspirin, Lipitor Insomnia - Vistaril DVT - SCDs - No Heparin or Lovenox due to Thrombocytopenia - Was on Lovenox on discharge but at this time will hold chemical anticoagulation and discuss with Heme/Onc Code Status - Full Resuscitation Resident Physician Supervision Note: I interviewed and examined the patient. Discussed with Dr. Rollins and agree with findings and plan as documented in the note. Any exceptions or clarifications are listed here: None Patient is somnolent but ready to eat some lunch he still has fairly significant upper extremity edema and ecchymosis forming on his right inner elbow He is no longer neutropenic and has not been febrile antibiotics are discontinued Vital signs are some tachycardia this is been sinus tach in the past his blood pressure stable exam shows his cardiac exam to be regular his lungs have diminished breath sounds and some coarse airway breath sounds abdomen is morbidly obese making examination difficult he is chronic venous stasis changes to his lower extremities and fairly unkempt nail care Patient presented with neutropenic fevers after receiving chemotherapy for small cell carcinoma of his lung there is already visible mediastinal lymphadenopathy seen with a 5 x 7 lung mass. The patient is begun on chemotherapy and received 2 courses of radiation therapy. After discussions with family 1 day prior we may need to have re-institution of a family meeting as I do not believe they feel that he is having palliative therapy but more curative therapy will try to coordinate a meeting with oncology in the family early next week Documented By: Wong Anna Resident Tracking Resident Involvement: Resident Care Provided Care Provided: Adult Hospital Medicine
--- NOTE | 2017-04-17 10:58 | Hematology/Oncology Prog Note ---
Hematology/Onc Progress Note Date of Service Apr 17, 2017. Diagnoses Bulky limited stage small cell lung carcinoma Cytopenia secondary to therapy. Medications Medications Administered Medications (Trade) Dose Ordered Sig/Michel Route Start Time Stop Time Status Last Admin Dose Admin Sodium Chloride 1,000 ml @ 999 mls/hr Q1H1M STAT IV 04/14/17 17:53 04/14/17 18:53 DC 04/14/17 17:53 999 MLS/HR Cefepime HCl 2000 mg/Dextrose 122 ml @ 200 mls/hr NOW STAT IV 04/14/17 19:10 04/14/17 19:46 DC 04/14/17 19:35 200 MLS/HR Ondansetron HCl (Zofran Inj) 4 mg NOW STAT IV 04/14/17 19:34 04/14/17 19:35 DC 04/14/17 19:39 4 MG Levofloxacin (Levaquin / D5W) 750 mg NOW STAT IV 04/14/17 19:35 04/14/17 19:37 DC 04/14/17 19:53 750 MG Insulin Aspart (novoLOG ASPART) SLIDING SCALE If C... ACHS SC 04/14/17 21:00 05/14/17 20:59 04/17/17 08:58 2 UNITS Albuterol (Ventolin Hfa Inhaler) 2 puffs Q4H INH 04/15/17 00:00 04/16/17 13:55 DC 04/16/17 11:48 2 PUFFS Allopurinol (Zyloprim Tab) 200 mg DAILY PO 04/15/17 08:00 04/15/17 16:40 DC 04/15/17 07:49 200 MG Amlodipine Besylate (Norvasc Tab) 5 mg QAM PO 04/15/17 08:00 05/15/17 08:59 04/17/17 08:36 5 MG Aspirin (Ecotrin Tab) 81 mg DAILY PO 04/15/17 08:00 05/15/17 08:59 04/17/17 08:39 81 MG Atorvastatin Calcium (Lipitor Tab) 40 mg DAILY PO 04/15/17 08:00 05/15/17 08:59 04/17/17 08:39 40 MG Budesonide/ Formoterol Fumarate (Symbicort 160/ 4.5 Inh) 2 puffs BID INH 04/15/17 08:00 05/15/17 07:59 04/17/17 08:40 2 PUFFS Furosemide (Lasix Tab) 20 mg DAILY PO 04/15/17 08:00 05/15/17 08:59 04/17/17 08:39 20 MG Hydroxyzine HCl (Vistaril Tab) 25 mg HSZ PRN PO 04/14/17 21:00 05/14/17 20:59 04/16/17 23:44 25 MG Tiotropium [place] (Spiriva Handihaler Inhaler) 1 puff QAM INH 04/15/17 08:00 05/15/17 08:59 04/17/17 08:41 1 PUFF Vancomycin HCl 2750 mg/Sodium Chloride 555 ml @ 200 mls/hr NOW ONCE IV 04/14/17 23:00 04/15/17 01:46 DC 04/14/17 22:58 200 MLS/HR Piperacillin Sod/ Tazobactam Sod 4.5 gm/Dextrose 120 ml @ 30 mls/hr Q8H IV 04/15/17 04:00 04/21/17 23:59 04/17/17 03:34 30 MLS/HR Vancomycin HCl (Vancomycin Oral Soln) 250 mg QID PO 04/14/17 23:00 04/15/17 06:20 DC 04/14/17 23:04 250 MG Albuterol/ Ipratropium (Duoneb) 3 ml QIDR INH 04/15/17 08:00 05/15/17 07:59 04/17/17 07:05 3 ML Guaifenesin (Organidin Nr Tab) 200 mg Q4H PO 04/15/17 00:00 05/15/17 00:00 04/17/17 08:35 200 MG Methylprednisolone Sodium Succinate 60 mg/Syringe 0.96 ml @ 1.5 mls/min Q8H IV 04/15/17 00:00 04/16/17 11:15 DC 04/16/17 07:49 1.5 MLS/MIN Magnesium Sulfate 1 gm/Prmx 100 ml @ 100 mls/hr TODAY@0000,2300 IV 04/14/17 23:00 04/15/17 00:59 DC 04/15/17 02:17 100 MLS/HR Piperacillin Sod/ Tazobactam Sod 4.5 gm/Dextrose 120 ml @ 200 mls/hr NOW ONCE IV 04/14/17 22:30 04/14/17 23:05 DC 04/14/17 22:57 200 MLS/HR Insulin Glargine (Lantus Solostar Pen) 12 units BID SC 04/14/17 21:00 04/15/17 14:40 DC 04/15/17 08:03 12 UNITS Raspberry (Raspberry Syrup 5ml Cup) 5 ml QID PO 04/14/17 23:00 04/15/17 06:20 DC 04/14/17 23:04 5 ML Heparin Sodium (Porcine) (Heparin 100 Unit/ml 5ml Flush) 5 ml PRN PRN IV 04/15/17 04:00 05/15/17 03:59 04/17/17 00:15 5 ML Filgrastim (Neupogen Sq) 480 mcg DAILY SC 04/15/17 14:00 04/18/17 13:59 04/17/17 10:10 480 MCG Insulin Glargine (Lantus Solostar Pen) 40 units BID SC 04/15/17 20:00 04/17/17 10:49 DC 04/17/17 08:59 40 UNITS Potassium Chloride (Klor-Con Tab) 40 meq BID PO 04/16/17 20:00 05/16/17 19:59 04/17/17 08:39 40 MEQ Potassium Chloride (Klor-Con Tab) 40 meq 0930 ONCE PO 04/16/17 09:30 04/16/17 09:31 DC 04/16/17 11:48 40 MEQ Furosemide 20 mg/ Syringe 2 ml @ 4 mls/min ONE ONCE IV 04/16/17 09:30 04/16/17 09:31 DC 04/16/17 11:47 4 MLS/MIN Prednisone (PredniSONE TAB) 60 mg Taper DAILY PO 04/17/17 08:00 05/04/17 07:59 04/17/17 08:36 60 MG Prednisone (PredniSONE TAB) 60 mg NOW ONCE PO 04/16/17 12:00 04/16/17 12:01 DC 04/16/17 12:05 60 MG Subjective . He continues to have diarrhea. Afebrile. He denies any shortness of breath. Otherwise he seems to be doing fairly well Review of Systems: Constitutional: Negative for night sweats, or fever. Does complain of fatigue Eyes: Negative for event change of vision ENT: Negative for epistaxis, nasal discharge, sore throat, or deafness Cardiovascular: Negative for chest pain, palpitations, dizziness, diaphoresis Respiratory: Negative for new shortness of breath,hemoptysis, or purulent cough Gastrointestinal: Negative for hematemesis, melena, nausea, vomiting, or dyspepsia Integumentary (skin): Negative for rash or jaundice discoloration Genitourinary: Negative for urinary frequency, hematuria, or dysuria Neurological: Negative for weakness, seizure activity, headache, or dizziness Lymphatic/Hematologic: Negative for petechiae, bleeding or new adenopathy Musculoskeletal: Negative for new joint or back pain Allergic/Immunologic: Negative for unusual rash or pruritis. Vital Signs Vital Signs Past 12 Hours Date Time Temp Pulse Resp B/P (MAP) Pulse Ox O2 Delivery O2 Flow Rate FiO2 04/17/17 10:26 95 Nasal Cannula 2.5 04/17/17 08:58 98 BiPAP 04/17/17 08:45 98 BiPAP 3.0 04/17/17 08:19 107/63 (78) 04/17/17 08:18 117/55 (75) 04/17/17 08:17 36.5 106 18 129/71 (90) 98 BiPAP 04/17/17 07:07 103 16 94 Room Air 04/17/17 04:28 36.5 101 20 119/57 (77) 97 CPAP 04/17/17 00:00 BiPAP 3.0 04/16/17 23:58 36.9 109 20 126/66 (86) 96 CPAP 114 108/64 (79) 120 94/58 (70) Physical Exam Constitutional: vitals are stable. Alert obese gentleman Eyes: Eyes are ELOY EOMI without conjuctival erythema or icterus. ENT: External examination was negative for masses. Neck: Negative for masses or palpable thyromegaly Respiratory: Lung sounds were generally clear but decreased bilaterally Cardiovascular: Heart was RRR without significant murmur, gallops aoe rubs Gastrointestinal: No palpable hepatic or splenomegaly. The abdomen was soft with normal bowel sounds. Lymphatic system: there was no palpable peripheral lymphadenopathy Musculoskeletal System: The musculoskeletal system seemed concordant with age. Skin: The skin was negative for jaundice. Ichthyosis particularly in the lower extremities Neurologic exam: The exam was negative for any focal findings. Deep tendon reflexes were equal and symmetrical. Psychiatric exam: Was essentially negative with normal mood and effect. Extremities: Negative for edema erythema Laboratory Last 24 Hours Test 04/16/17 11:42 04/16/17 16:46 04/16/17 20:25 04/17/17 04:58 Bedside Glucose 244 mg/dl 236 mg/dl 165 mg/dl White Blood Count 3.44 K/uL Red Blood Count 3.26 M/uL Hemoglobin 9.9 g/dL Hematocrit 29.3 % Mean Corpuscular Volume 89.9 fL Mean Corpuscular Hemoglobin 30.4 pg Mean Corpuscular Hemoglobin Concent 33.8 g/dl Platelet Count 47 K/uL Mean Platelet Volume 10.1 fL RDW Standard Deviation 42.0 fL RDW Coefficient of Variation 12.8 % Nucleated RBC Absolute Count (auto) 0.02 K/uL Neutrophils % (Manual) 88.0 % Lymphocytes % (Manual) 4.0 % Monocytes % (Manual) 6.0 % Myelocytes % 2.0 % Nucleated Red Blood Cells % 0.6 % Neutrophils # (Manual) 3.02 K/uL Total Absolute Neutrophils 3.02 K/uL Lymphocytes # (Manual) 0.14 K/uL Total Absolute Lymphocytes 0.14 K/uL Monocytes # (Manual) 0.21 K/uL Myelocytes # 0.07 K/uL Toxic Granulation 2+ Large Platelets 1+ Sodium Level 133 mmol/L Potassium Level 3.6 mmol/L Chloride Level 101 mmol/L Carbon Dioxide Level 25 mmol/L Anion Gap 7.0 mmol/L Blood Urea Nitrogen 58 mg/dl Creatinine 1.65 mg/dl Est Creatinine Clear Calc Drug Dose 52.0 ml/min Estimated GFR () 46.4 Estimated GFR (Non- 40.0 BUN/Creatinine Ratio 35.1 Random Glucose 106 mg/dl Calcium Level 6.9 mg/dl Magnesium Level 2.0 mg/dl Test 04/17/17 07:45 Bedside Glucose 102 mg/dl Assessment & Plan CBC continues to improve. He is afebrile. Imodium can be used as needed for his diarrhea. C. difficile toxin is negative. I suspect the diarrhea will resolve as his white count recovers. For now we will place him on the schedule to be seen in our clinic late next week. At that time therapy will resume. ( Combined radiotherapy with chemotherapy).
[2017-04-17] MEDS ORDERED: FUROSEMIDE INJ 20 MG in SYRINGE 0 ML IV ONE (17:15)
[2017-04-17] MEDS: hydrOXYzine HCL 25 MG TAB PO PRN (20:57)
[2017-04-17] MEDS ORDERED: SODIUM CHLORIDE 0.65% NA SOLN 45 ML (OCEAN) ONE (20:59)
[2017-04-18] VITALS (12 sets, daily range): BP systolic 102–173; BP diastolic 57–74; PULSE 101–126; TEMP 36.2–36.7; O2SAT 90–96
[2017-04-18] MEDS: GUAIFENESIN 200 MG TAB PO SCH ×5 (03:04→20:58)
[2017-04-18 05:57] LABS: HEMATOCRIT 30.5 % (42-52); HEMOGLOBIN 10.5 g/dL (14.0-18.0); MEAN CORPUSCULAR HGB CONC 34.4 g/dl (32-36); NUCLEATED RED BLOOD CELL ABS 0.03 K/uL (0-0); RED CELL DISTRIBUTION WIDTH CV 13.1 % (11.5-14.5); RED CELL DISTRIBUTION WIDTH SD 42.7 fL (36.4-46.3); WHITE BLOOD COUNT 11.38 K/uL (4.8-10.8)
[2017-04-18 06:15] LABS: MEAN PLATELET VOLUME 10.9 fL (7.4-10.4); PLATELET COUNT 52 K/uL (130-400)
[2017-04-18 06:34] LABS: CALCIUM 7.3 mg/dl (8.5-10.1); CREATININE 1.58 mg/dl (0.60-1.40); POTASSIUM 4.2 mmol/L (3.5-5.1)
[2017-04-18] MEDS: ALBUT/IPRATROP 3MG/0.5MG NEB 3 ML VIAL INH SCH ×4 (07:24→19:29)
[2017-04-18] MEDS: ATORVASTATIN 20 MG TAB PO SCH (07:39)
[2017-04-18] MEDS: FUROSEMIDE 20 MG TAB PO SCH (07:40)
[2017-04-18] MEDS: ASPIRIN 81 MG ECTAB PO SCH (07:40)
[2017-04-18] MEDS: POTASSIUM CHLORIDE 20 MEQ TABCR PO SCH ×2 (07:40→20:57)
[2017-04-18] MEDS: AMLODIPINE BESYLATE 5 MG TAB PO SCH (07:40)
[2017-04-18] MEDS: BOOST GLUCOSE CONTROL PO SCH ×2 (07:41→20:56)
[2017-04-18] MEDS: BUDESONIDE/FORMOTEROL FUMARATE 160/4.5 60 PUFFS/INHALER INH SCH ×2 (07:41→20:56)
[2017-04-18] MEDS: TIOTROPIUM BROMIDE 5 PUFF/90 MCG INH INH SCH (07:42)
[2017-04-18] MEDS: NICOTINE 21 MG/24 HR TDSY TD SCH (08:00)
[2017-04-18] MEDS ORDERED: FUROSEMIDE INJ 40 MG in SYRINGE 0 ML IV ONE (08:30)
[2017-04-18] MEDS: INSULIN ASPART 100 UNITS/ML 3 ML PEN SC SCH ×4 (09:14→21:01)
[2017-04-18] MEDS: INSULIN GLARGINE SOLOSTAR 100 UNITS/ML 3 ML PEN SC SCH ×2 (09:17→21:02)
[2017-04-18] MEDS ORDERED: MAGIC SWIZZLE PO PRN (09:30)
[2017-04-18] MEDS ORDERED: LIDOCAINE HCL 2% VISCOUS SOLN 1.25 ML, DiphenhydrAMINE HCL SYRUP 3.125 MG, ALUMINUM/MAG... MT PRN ×4 (10:15)
--- NOTE | 2017-04-18 13:07 | Hematology/Oncology Prog Note ---
Hematology/Onc Progress Note Date of Service Apr 18, 2017. Diagnoses Bulky limited stage small cell lung carcinoma Cytopenia secondary to therapy. Medications Medications Administered Medications (Trade) Dose Ordered Sig/Michel Route Start Time Stop Time Status Last Admin Dose Admin Sodium Chloride 1,000 ml @ 999 mls/hr Q1H1M STAT IV 04/14/17 17:53 04/14/17 18:53 DC 04/14/17 17:53 999 MLS/HR Cefepime HCl 2000 mg/Dextrose 122 ml @ 200 mls/hr NOW STAT IV 04/14/17 19:10 04/14/17 19:46 DC 04/14/17 19:35 200 MLS/HR Ondansetron HCl (Zofran Inj) 4 mg NOW STAT IV 04/14/17 19:34 04/14/17 19:35 DC 04/14/17 19:39 4 MG Levofloxacin (Levaquin / D5W) 750 mg NOW STAT IV 04/14/17 19:35 04/14/17 19:37 DC 04/14/17 19:53 750 MG Insulin Aspart (novoLOG ASPART) SLIDING SCALE If C... ACHS SC 04/14/17 21:00 05/14/17 20:59 04/17/17 21:08 5 UNITS Albuterol (Ventolin Hfa Inhaler) 2 puffs Q4H INH 04/15/17 00:00 04/16/17 13:55 DC 04/16/17 11:48 2 PUFFS Allopurinol (Zyloprim Tab) 200 mg DAILY PO 04/15/17 08:00 04/15/17 16:40 DC 04/15/17 07:49 200 MG Amlodipine Besylate (Norvasc Tab) 5 mg QAM PO 04/15/17 08:00 05/15/17 08:59 04/18/17 07:40 5 MG Aspirin (Ecotrin Tab) 81 mg DAILY PO 04/15/17 08:00 05/15/17 08:59 04/18/17 07:40 81 MG Atorvastatin Calcium (Lipitor Tab) 40 mg DAILY PO 04/15/17 08:00 05/15/17 08:59 04/18/17 07:39 40 MG Budesonide/ Formoterol Fumarate (Symbicort 160/ 4.5 Inh) 2 puffs BID INH 04/15/17 08:00 05/15/17 07:59 04/18/17 07:41 2 PUFFS Furosemide (Lasix Tab) 20 mg DAILY PO 04/15/17 08:00 05/15/17 08:59 Future Hold 04/18/17 07:40 20 MG Hydroxyzine HCl (Vistaril Tab) 25 mg HSZ PRN PO 04/14/17 21:00 05/14/17 20:59 04/17/17 20:57 25 MG Tiotropium [place] (Spiriva Handihaler Inhaler) 1 puff QAM INH 04/15/17 08:00 05/15/17 08:59 04/18/17 07:42 1 PUFF Vancomycin HCl 2750 mg/Sodium Chloride 555 ml @ 200 mls/hr NOW ONCE IV 04/14/17 23:00 04/15/17 01:46 DC 04/14/17 22:58 200 MLS/HR Piperacillin Sod/ Tazobactam Sod 4.5 gm/Dextrose 120 ml @ 30 mls/hr Q8H IV 04/15/17 04:00 04/17/17 12:43 DC 04/17/17 12:04 30 MLS/HR Vancomycin HCl (Vancomycin Oral Soln) 250 mg QID PO 04/14/17 23:00 04/15/17 06:20 DC 04/14/17 23:04 250 MG Albuterol/ Ipratropium (Duoneb) 3 ml QIDR INH 04/15/17 08:00 05/15/17 07:59 04/18/17 11:12 3 ML Guaifenesin (Organidin Nr Tab) 200 mg Q4H PO 04/15/17 00:00 05/15/17 00:00 04/18/17 07:39 200 MG Methylprednisolone Sodium Succinate 60 mg/Syringe 0.96 ml @ 1.5 mls/min Q8H IV 04/15/17 00:00 04/16/17 11:15 DC 04/16/17 07:49 1.5 MLS/MIN Magnesium Sulfate 1 gm/Prmx 100 ml @ 100 mls/hr TODAY@0000,2300 IV 04/14/17 23:00 04/15/17 00:59 DC 04/15/17 02:17 100 MLS/HR Piperacillin Sod/ Tazobactam Sod 4.5 gm/Dextrose 120 ml @ 200 mls/hr NOW ONCE IV 04/14/17 22:30 04/14/17 23:05 DC 04/14/17 22:57 200 MLS/HR Insulin Glargine (Lantus Solostar Pen) 12 units BID SC 04/14/17 21:00 04/15/17 14:40 DC 04/15/17 08:03 12 UNITS Raspberry (Raspberry Syrup 5ml Cup) 5 ml QID PO 04/14/17 23:00 04/15/17 06:20 DC 04/14/17 23:04 5 ML Heparin Sodium (Porcine) (Heparin 100 Unit/ml 5ml Flush) 5 ml PRN PRN IV 04/15/17 04:00 05/15/17 03:59 04/18/17 09:21 5 ML Filgrastim (Neupogen Sq) 480 mcg DAILY SC 04/15/17 14:00 04/18/17 08:13 DC 04/17/17 10:10 480 MCG Insulin Glargine (Lantus Solostar Pen) 40 units BID SC 04/15/17 20:00 04/17/17 10:49 DC 04/17/17 08:59 40 UNITS Enteral Nutritional Formula (Boost Glucose Control) 1 can BID PO 04/15/17 20:00 05/15/17 19:59 04/18/17 07:41 1 CAN Potassium Chloride (Klor-Con Tab) 40 meq BID PO 04/16/17 20:00 05/16/17 19:59 04/17/17 08:39 40 MEQ Potassium Chloride (Klor-Con Tab) 40 meq 0930 ONCE PO 04/16/17 09:30 04/16/17 09:31 DC 04/16/17 11:48 40 MEQ Furosemide 20 mg/ Syringe 2 ml @ 4 mls/min ONE ONCE IV 04/16/17 09:30 04/16/17 09:31 DC 04/16/17 11:47 4 MLS/MIN Prednisone (PredniSONE TAB) 60 mg Taper DAILY PO 04/17/17 08:00 05/04/17 07:59 04/18/17 07:43 60 MG Prednisone (PredniSONE TAB) 60 mg NOW ONCE PO 04/16/17 12:00 04/16/17 12:01 DC 04/16/17 12:05 60 MG Insulin Glargine (Lantus Solostar Pen) 40 units DAILY@0800 SC 04/18/17 08:00 05/18/17 07:59 04/18/17 09:17 40 UNITS Insulin Glargine (Lantus Solostar Pen) 20 units HS SC 04/17/17 21:00 05/17/17 20:59 04/17/17 21:08 20 UNITS Furosemide 20 mg/ Syringe 2 ml @ 4 mls/min ONE ONCE IV 04/17/17 17:15 04/17/17 17:16 DC 04/17/17 17:46 4 MLS/MIN Sodium Chloride ([place] Nasal [place]) 225 sprays STK-MED ONCE .ROUTE 04/17/17 20:59 04/17/17 21:00 DC 04/17/17 21:09 225 SPRAYS Furosemide 40 mg/ Syringe 4 ml @ 4 mls/min TODAY@0830 ONCE IV 04/18/17 08:30 04/18/17 08:31 DC 04/18/17 09:12 4 MLS/MIN Subjective WBC better and platelets rising. Afebrile. Continues to have an occasional loose stool. Review of Systems: Constitutional: Negative for weight loss, night sweats, or fever Eyes: Negative for event change of vision ENT: Negative for epistaxis, nasal discharge, sore throat, or deafness Cardiovascular: Negative for chest pain, palpitations, dizziness, diaphoresis Respiratory: Negative for new shortness of breath,hemoptysis, or purulent cough Gastrointestinal: Negative for hematemesis, melena, nausea, vomiting, or dyspepsia Integumentary (skin): Negative for rash or jaundice discoloration Genitourinary: Negative for urinary frequency, hematuria, or dysuria Neurological: Negative for weakness, seizure activity, headache, or dizziness Lymphatic/Hematologic: Negative for petechiae, bleeding or new adenopathy Musculoskeletal: Negative for new joint or back pain Allergic/Immunologic: Negative for unusual rash or pruritis. Vital Signs Vital Signs Past 12 Hours Date Time Temp Pulse Resp B/P (MAP) Pulse Ox O2 Delivery O2 Flow Rate FiO2 04/18/17 11:12 117 18 90 Room Air 04/18/17 07:24 119 20 95 Nasal Cannula 3.0 04/18/17 06:59 36.6 107 20 148/70 (96) 94 Nasal Cannula 3.0 04/18/17 03:59 36.6 101 20 173/74 (107) 96 Nasal Cannula 3.0 Physical Exam Constitutional: vitals are stable. Eyes: Eyes are ELOY EOMI without conjuctival erythema or icterus. ENT: External examination was negative for masses. Neck: Negative for masses or palpable thyromegaly Respiratory: Lung sounds were generally clear but decreased bilaterally Cardiovascular: Heart was RRR without significant murmur, gallops aoe rubs Gastrointestinal: No palpable hepatic or splenomegaly. The abdomen was soft with normal bowel sounds. Lymphatic system: there was no palpable peripheral lymphadenopathy Musculoskeletal System: The musculoskeletal system seemed concordant with age. Skin: The skin was negative for jaundice. Neurologic exam: The exam was negative for any focal findings. Deep tendon reflexes were equal and symmetrical. Psychiatric exam: Was essentially negative with normal mood and effect. Extremities : mild general edema all extremities. Icthyosis lower extremities. Laboratory Last 24 Hours Test 04/18/17 05:49 04/18/17 07:52 04/18/17 11:43 White Blood Count 11.38 K/uL Red Blood Count 3.39 M/uL Hemoglobin 10.5 g/dL Hematocrit 30.5 % Mean Corpuscular Volume 90.0 fL Mean Corpuscular Hemoglobin 31.0 pg Mean Corpuscular Hemoglobin Concent 34.4 g/dl Platelet Count 52 K/uL Mean Platelet Volume 10.9 fL RDW Standard Deviation 42.7 fL RDW Coefficient of Variation 13.1 % Nucleated RBC Absolute Count (auto) 0.03 K/uL Neutrophils % (Manual) 91.4 % Lymphocytes % (Manual) 0.9 % Monocytes % (Manual) 6.0 % Myelocytes % 1.7 % Nucleated Red Blood Cells % 0.3 % Neutrophils # (Manual) 10.40 K/uL Total Absolute Neutrophils 10.40 K/uL Lymphocytes # (Manual) 0.10 K/uL Total Absolute Lymphocytes 0.10 K/uL Monocytes # (Manual) 0.68 K/uL Myelocytes # 0.19 K/uL Toxic Granulation 2+ Sodium Level 135 mmol/L Potassium Level 4.2 mmol/L Chloride Level 102 mmol/L Carbon Dioxide Level 25 mmol/L Anion Gap 8.0 mmol/L Blood Urea Nitrogen 58 mg/dl Creatinine 1.58 mg/dl Est Creatinine Clear Calc Drug Dose 54.0 ml/min Estimated GFR () 48.9 Estimated GFR (Non- 42.2 BUN/Creatinine Ratio 36.7 Random Glucose 85 mg/dl Calcium Level 7.3 mg/dl Magnesium Level 2.0 mg/dl Bedside Glucose 85 mg/dl 127 mg/dl Assessment & Plan CBC continues to improve. He is afebrile. Imodium can be used as needed for his diarrhea. Neupogen can now stop. I did have a long phone call with Ej (daughter). She has a very good understanding of her father's cancer problem. We discussed a number of issues. I first reviewed with her that with this problem of limited stage small cell lung cancer, we tend to try and treat with combined modality therapy. Obviously he is has great difficulty even with the initial doses of therapy. One thought is to modify the doses and see if we can continue on. Dr. Baldev Lau and I have spoke yesterday about perhaps dropping the Irinotecan altogether and just using weekly carboplatin with RT. In any case I reviewed this with the daughter and stated that if possible would like to try to resume the combined modality approach and that certainly will not happen much before the latter part of next week. She has been told and she understands that even though this is limited stage disease, a chance of cure his very remote and highly unlikely. We then changed topics a little and talked about his quality of life. I stated that our main goal was to try not to overtly affect his quality of life negatively although there would be some change simply because of chemotherapy and radiation. I shared with her my concern that he would not be able to live alone. She lives within a mile of her father. She cares for several pets at her own apartment and will do the best she can to help her father however she understands and I reviewed with her that I suspect his current condition is about as good as is going to be and most likely will deteriorate going further. She understood. It would be reasonable then to have the technical communicator review options as far as assisted living with the patient and the daughter. She agreed and understood the realities of and need for doing that. She also reviewed with me that he may reflect that his brother Michael will help take care of him but she has concerns that he physically will not be able to do this. With that then I would suggest that a technical communicator meet with the daughter and the patient to discuss alternate living arrangements or options for discharge. He will have a follow-up with our clinic most likely towards the latter part of next week.
--- NOTE | 2017-04-18 15:18 | Progress Note ---
Subjective Date of Service: Apr 18, 2017. Subjective I visited the patient this morning after being aware of his daughters complaining that she wished the patient have a new attending this seem to stem from an interaction that occurred with her daughter was asking me to explain why the patient had bilateral arm swelling and I told her had to be honest that there are many things that could possibly go but I cannot be exactly precise what was doing it however did order venous Doppler studies of his arms which were then delayed because the patient and his daughter were speaking to our service excellence provider to this date the testing and not been yet completed I did speak with the patient privately in the morning of April 18 and asked him if he wished for a new physician he stated that I have to do a my daughter wants me to do I asked him if you wish for a new physician and he said yes that is why daughter wants I then did contact Dr. Hightower and she will take over the patient's case Exam he was awake and alert he appeared mildly short of breath he remained with fairly significant upper extremity edema bilaterally and some ecchymosis to his right inner arm Problem List Medical Problems: (1) COPD (chronic obstructive pulmonary disease) Status: Acute (2) Hypoxia Status: Acute (3) Lung mass Status: Acute (4) SOB (shortness of breath) Status: Acute Review of Systems Constitutional: + weakness, + fatigue, No fever, No chills Respiratory: + dyspnea on exertion, No cough, No shortness of breath Cardiac: + edema, No chest pain Abdomen: No pain, No nausea, No vomiting, No diarrhea Musculoskeletal: + swelling, No joint pain, No muscle pain Objective Vital Signs Date Time Temp Pulse Resp B/P (MAP) Pulse Ox O2 Delivery O2 Flow Rate FiO2 04/18/17 14:53 116 20 92 Room Air 04/18/17 12:00 36.6 113 22 138/68 (91) 93 CPAP 04/18/17 11:12 117 18 90 Room Air 04/18/17 07:24 119 20 95 Nasal Cannula 3.0 04/18/17 06:59 36.6 107 20 148/70 (96) 94 Nasal Cannula 3.0 04/18/17 03:59 36.6 101 20 173/74 (107) 96 Nasal Cannula 3.0 04/18/17 00:06 36.7 107 22 138/69 (92) 96 CPAP 04/18/17 00:00 BiPAP 3.0 04/17/17 20:18 36.7 99 19 164/72 (102) 95 Nasal Cannula 3.0 04/17/17 19:27 113 16 95 Room Air 04/17/17 19:00 BiPAP 3.0 04/17/17 15:45 97 Room Air Physical Exam General Appearance: + mild distress, + obese Eyes: normal inspection, sclerae normal Respiratory/Chest: + respiratory distress, + decreased breath sounds, + accessory muscle use Cardiovascular: regular rate, rhythm, no murmur Abdomen: normal bowel sounds, non tender, soft Extremities: + pedal edema, + swelling Laboratory Results Last 24 Hours Test 04/18/17 05:49 04/18/17 07:52 04/18/17 11:43 White Blood Count 11.38 K/uL Red Blood Count 3.39 M/uL Hemoglobin 10.5 g/dL Hematocrit 30.5 % Mean Corpuscular Volume 90.0 fL Mean Corpuscular Hemoglobin 31.0 pg Mean Corpuscular Hemoglobin Concent 34.4 g/dl Platelet Count 52 K/uL Mean Platelet Volume 10.9 fL RDW Standard Deviation 42.7 fL RDW Coefficient of Variation 13.1 % Nucleated RBC Absolute Count (auto) 0.03 K/uL Neutrophils % (Manual) 91.4 % Lymphocytes % (Manual) 0.9 % Monocytes % (Manual) 6.0 % Myelocytes % 1.7 % Nucleated Red Blood Cells % 0.3 % Neutrophils # (Manual) 10.40 K/uL Total Absolute Neutrophils 10.40 K/uL Lymphocytes # (Manual) 0.10 K/uL Total Absolute Lymphocytes 0.10 K/uL Monocytes # (Manual) 0.68 K/uL Myelocytes # 0.19 K/uL Toxic Granulation 2+ Sodium Level 135 mmol/L Potassium Level 4.2 mmol/L Chloride Level 102 mmol/L Carbon Dioxide Level 25 mmol/L Anion Gap 8.0 mmol/L Blood Urea Nitrogen 58 mg/dl Creatinine 1.58 mg/dl Est Creatinine Clear Calc Drug Dose 54.0 ml/min Estimated GFR () 48.9 Estimated GFR (Non- 42.2 BUN/Creatinine Ratio 36.7 Random Glucose 85 mg/dl Calcium Level 7.3 mg/dl Magnesium Level 2.0 mg/dl Bedside Glucose 85 mg/dl 127 mg/dl Assessment and Plan 76-year-old male here with neutropenic fever and pancytopenia from chemotherapy that was to treat a 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 that was diagnosed in the last few weeks patient has underlying COPD and sleep apnea requiring nocturnal BiPAP he has moderate protein malnutrition and likely peripheral edema because of the same Regarding his neutropenic fevers fever is resolved his neutropenia has been rescued by Neupogen His upper extremity swelling continues to be persistent we have tried to reduce any extraneous fluids were gently try and diurese him in the face of chronic kidney disease and we have a pending upper extremity venous Doppler Regarding his COPD, he is on prednisone tapering dose which likely may also be part of his chemotherapeutic regimen Symbicort Spiriva duo nebs and albuterol as needed Regarding cardiovascular disease remains on aspirin Lipitor Norvasc For his diabetes he is on insulin basal bolus As his pancytopenia is improving his platelet count is greater than 50 he will be begun on Lovenox therapy for DVT prevention Patient given a dose of intravenous Lasix 20 on 17 April and 40 in the morning of April 18 this is in the face of chronic kidney disease stage III and elevated BUN we are doing this to try to improve his symptomatic relief of his upper extremity swelling With regard to the bruising on the inner aspects of his right upper extremity this appears to be ecchymotic however given the fact that he is immunosuppressed watching for infection would be understandable the patient did complete some Zosyn therapy while he was febrile this is been discontinued since that time
[2017-04-18] MEDS: hydrOXYzine HCL 25 MG TAB PO PRN (20:59)
[2017-04-18] MEDS: ENOXAPARIN 40 MG/0.4 ML SYR SQ SCH (21:02)
[2017-04-19] VITALS (9 sets, daily range): BP systolic 90–145; BP diastolic 53–76; PULSE 88–116; TEMP 36.4–36.6; O2SAT 91–96
[2017-04-19] MEDS: GUAIFENESIN 200 MG TAB PO SCH ×7 (00:22→23:36)
[2017-04-19] MEDS: ALBUT/IPRATROP 3MG/0.5MG NEB 3 ML VIAL INH SCH ×4 (07:43→20:07)
[2017-04-19] MEDS: NICOTINE 21 MG/24 HR TDSY TD SCH (08:00)
[2017-04-19] MEDS: BOOST GLUCOSE CONTROL PO SCH ×2 (08:00→20:46)
[2017-04-19] MEDS: INSULIN ASPART 100 UNITS/ML 3 ML PEN SC SCH ×4 (08:11→20:46)
[2017-04-19] MEDS: TIOTROPIUM BROMIDE 5 PUFF/90 MCG INH INH SCH (08:15)
[2017-04-19] MEDS: ALBUTEROL HFA 8 GM INHALER INH PRN (08:15)
[2017-04-19] MEDS: BUDESONIDE/FORMOTEROL FUMARATE 160/4.5 60 PUFFS/INHALER INH SCH ×2 (08:16→20:46)
[2017-04-19] MEDS: AMLODIPINE BESYLATE 5 MG TAB PO SCH (08:18)
[2017-04-19] MEDS: ASPIRIN 81 MG ECTAB PO SCH (08:19)
[2017-04-19] MEDS: ATORVASTATIN 20 MG TAB PO SCH (08:20)
[2017-04-19] MEDS: INSULIN GLARGINE SOLOSTAR 100 UNITS/ML 3 ML PEN SC SCH ×2 (08:24→20:49)
--- NOTE | 2017-04-19 10:02 | DIAGNOSTIC IMAGING REPORT ---
ULTRASOUND VENOUS DOPPLER UPR EXT BILA CLINICAL HISTORY: persistent arm swelling COMPARISON STUDY: No previous studies for comparison. FINDINGS: No intraluminal thrombus was visualized. The internal jugular, subclavian, axillary, cephalic, brachial, basilic, radial, and ulnar veins were patent. A central venous catheter is visualized within the left subclavian vein. IMPRESSION: No evidence of upper extremity DVT. Electronically signed by: Ranjit Nelson M.D. 04/19/2017 10:01 AM Dictated Date/Time: 04/19/2017 10:00 AM
[2017-04-19] MEDS: POTASSIUM CHLORIDE 20 MEQ TABCR PO SCH (12:17)
[2017-04-19] MEDS ORDERED: BUMETANIDE SOLN 1 MG/4 ML VIAL IV ONE (14:15)
--- NOTE | 2017-04-19 14:21 | Progress Note ---
Subjective Date of Service: Apr 19, 2017. Subjective Pt evaluation today including: conversation w/ patient, conversation w/ family Pt had diarrhea and has some nausea since that time. Decreased PO intake related to decreased appetite "since I got sick". Ongoing UE/LE swelling. He is uncertain if this was improved s/p lasix yesterday. Feels he ambulated to the bathroom well but did have mild SOB towards the end of his ambulation. He states this is better than prior. He does not want to take the PO K today. Pt had UE US ordered on 04/17 and they had not been done until today due to pt refusal x3. Problem List Medical Problems: (1) COPD (chronic obstructive pulmonary disease) Status: Acute (2) Hypoxia Status: Acute (3) Lung mass Status: Acute (4) SOB (shortness of breath) Status: Acute Review of Systems All Other Systems: Reviewed and Negative Objective Vital Signs Date Time Temp Pulse Resp B/P (MAP) Pulse Ox O2 Delivery O2 Flow Rate FiO2 04/19/17 13:54 90 20 95 Room Air 04/19/17 11:41 36.5 100 20 130/76 (94) 91 Nasal Cannula 3.0 04/19/17 08:15 Nasal Cannula 3.0 04/19/17 08:00 36.5 101 20 129/72 (91) 91 Room Air 04/19/17 07:46 101 20 92 BiPAP/CPAP 21 04/19/17 04:58 36.5 97 20 145/65 (91) 96 Nasal Cannula 3.0 04/19/17 00:00 Nasal Cannula 3.0 BiPAP 04/18/17 23:39 36.2 107 18 123/69 (87) 96 CPAP 04/18/17 19:29 106 20 94 Nasal Cannula 3.0 04/18/17 18:53 36.3 109 18 110/63 (79) 95 04/18/17 16:20 Nasal Cannula 3.0 04/18/17 15:32 36.5 120 20 117/65 (82) 93 3.0 126 102/57 (72) 115 137/63 (87) 04/18/17 14:53 116 20 92 Room Air Physical Exam General Appearance: WD/WN, no apparent distress Eyes: normal inspection, sclerae normal Respiratory/Chest: normal breath sounds, no respiratory distress Cardiovascular: regular rate, rhythm, + normal peripheral pulses Abdomen: non tender, soft Extremities: + pertinent finding (UE/LE edema, 1+ pitting on LE, 2+ pitting UE) Neurologic/Psychiatric: alert, oriented x 3 Skin: normal color, warm/dry Laboratory Results Last 24 Hours Test 04/18/17 16:48 04/18/17 20:18 04/19/17 07:51 04/19/17 12:09 Bedside Glucose 259 mg/dl 185 mg/dl 96 mg/dl 140 mg/dl Assessment and Plan 76-year-old male here with neutropenic fever and pancytopenia from chemotherapy that was to treat a 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 that was diagnosed in the last few weeks patient has underlying COPD and sleep apnea requiring nocturnal BiPAP he has moderate protein malnutrition and likely peripheral edema because of the same Neutropenic fevers: fever is resolved Neutropenia improved s/p Neupogen UA neg, blood cx neg, cdiff neg UE swelling: pt is uncertain if lasix improved this UE US neg for DVT Bumex today given cr HypoK: refusing PO tabs, switch to PO liquid and monitor Diarrhea: cdiff neg COPD: prednisone tapering dose Symbicort, Spiriva, duo nebs PRN CAD: remains on aspirin Lipitor Norvasc DM: insulin basal bolus Pancytopenia:Improving When platelet count is greater than 50 he will be begun on Lovenox therapy for DVT prevention
[2017-04-19] MEDS ORDERED: BUMETANIDE IV 2 MG in SYRINGE 0 ML IV ONE (14:30)
[2017-04-19] MEDS: ENOXAPARIN 40 MG/0.4 ML SYR SQ SCH (20:47)
[2017-04-19] MEDS: hydrOXYzine HCL 25 MG TAB PO PRN (21:56)
[2017-04-20] VITALS (12 sets, daily range): BP systolic 114–153; BP diastolic 53–77; PULSE 94–120; TEMP 36.4–36.6; O2SAT 90–96; BMI 43.3
[2017-04-20] MEDS: ONDANSETRON INJ 2 MG/ML 2 ML VIAL IV PRN ×2 (01:54→08:09)
[2017-04-20] MEDS ORDERED: TRAZODONE HCL 50 MG TAB PO ONE (03:15)
[2017-04-20] MEDS: GUAIFENESIN 200 MG TAB PO SCH ×4 (03:25→20:00)
[2017-04-20 05:55] LABS: HEMATOCRIT 29.8 % (42-52); HEMOGLOBIN 9.8 g/dL (14.0-18.0); MEAN CELL VOLUME 90.9 fL (80-100); MEAN CORPUSCULAR HEMOGLOBIN 29.9 pg (25-34); MEAN CORPUSCULAR HGB CONC 32.9 g/dl (32-36); NUCLEATED RED BLOOD CELL ABS 0.02 K/uL (0-0); RED CELL DISTRIBUTION WIDTH CV 13.3 % (11.5-14.5); WHITE BLOOD COUNT 12.96 K/uL (4.8-10.8)
[2017-04-20 06:23] LABS: CALCIUM 7.5 mg/dl (8.5-10.1); CREATININE 1.25 mg/dl (0.60-1.40); MEAN PLATELET VOLUME 10.3 fL (7.4-10.4); PLATELET COUNT 73 K/uL (130-400); POTASSIUM 3.8 mmol/L (3.5-5.1)
[2017-04-20] MEDS: ALBUT/IPRATROP 3MG/0.5MG NEB 3 ML VIAL INH SCH ×4 (07:40→19:48)
[2017-04-20] MEDS: NICOTINE 21 MG/24 HR TDSY TD SCH (08:00)
[2017-04-20] MEDS: BUDESONIDE/FORMOTEROL FUMARATE 160/4.5 60 PUFFS/INHALER INH SCH ×2 (08:17→21:01)
[2017-04-20] MEDS: ALBUTEROL HFA 8 GM INHALER INH PRN (08:17)
[2017-04-20] MEDS: INSULIN GLARGINE SOLOSTAR 100 UNITS/ML 3 ML PEN SC SCH (08:25)
[2017-04-20] MEDS: BOOST GLUCOSE CONTROL PO SCH ×2 (08:52→21:01)
[2017-04-20] MEDS: INSULIN ASPART 100 UNITS/ML 3 ML PEN SC SCH ×4 (08:52→21:03)
--- NOTE | 2017-04-20 08:57 | Hematology/Oncology Prog Note ---
Hematology/Onc Progress Note Date of Service Apr 20, 2017. Diagnoses Small cell lung cancer Shortness of breath Pancytopenia Medications Medications Administered Medications (Trade) Dose Ordered Sig/Michel Route Start Time Stop Time Status Last Admin Dose Admin Sodium Chloride 1,000 ml @ 999 mls/hr Q1H1M STAT IV 04/14/17 17:53 04/14/17 18:53 DC 04/14/17 17:53 999 MLS/HR Cefepime HCl 2000 mg/Dextrose 122 ml @ 200 mls/hr NOW STAT IV 04/14/17 19:10 04/14/17 19:46 DC 04/14/17 19:35 200 MLS/HR Ondansetron HCl (Zofran Inj) 4 mg NOW STAT IV 04/14/17 19:34 04/14/17 19:35 DC 04/14/17 19:39 4 MG Levofloxacin (Levaquin / D5W) 750 mg NOW STAT IV 04/14/17 19:35 04/14/17 19:37 DC 04/14/17 19:53 750 MG Ondansetron HCl (Zofran Inj) 4 mg Q6H PRN IV 04/14/17 21:00 05/14/17 20:59 04/20/17 08:09 4 MG Insulin Aspart (novoLOG ASPART) SLIDING SCALE If C... ACHS SC 04/14/17 21:00 05/14/17 20:59 04/19/17 17:20 18 UNITS Albuterol (Ventolin Hfa Inhaler) 2 puffs Q4H INH 04/15/17 00:00 04/16/17 13:55 DC 04/16/17 11:48 2 PUFFS Allopurinol (Zyloprim Tab) 200 mg DAILY PO 04/15/17 08:00 04/15/17 16:40 DC 04/15/17 07:49 200 MG Amlodipine Besylate (Norvasc Tab) 5 mg QAM PO 04/15/17 08:00 05/15/17 08:59 04/19/17 08:18 5 MG Aspirin (Ecotrin Tab) 81 mg DAILY PO 04/15/17 08:00 05/15/17 08:59 04/19/17 08:19 81 MG Atorvastatin Calcium (Lipitor Tab) 40 mg DAILY PO 3/7/18 08:00 05/15/17 08:59 04/19/17 08:20 40 MG Budesonide/ Formoterol Fumarate (Symbicort 160/ 4.5 Inh) 2 puffs BID INH 04/15/17 08:00 05/15/17 07:59 04/20/17 08:17 2 PUFFS Furosemide (Lasix Tab) 20 mg DAILY PO 04/15/17 08:00 05/15/17 08:59 Future Hold 04/18/17 07:40 20 MG Hydroxyzine HCl (Vistaril Tab) 25 mg HSZ PRN PO 04/14/17 21:00 04/18/17 15:17 DC 04/17/17 20:57 25 MG Tiotropium [place] (Spiriva Handihaler Inhaler) 1 puff QAM INH 04/15/17 08:00 05/15/17 08:59 04/19/17 08:15 1 PUFF Vancomycin HCl 2750 mg/Sodium Chloride 555 ml @ 200 mls/hr NOW ONCE IV 04/14/17 23:00 04/15/17 01:46 DC 04/14/17 22:58 200 MLS/HR Piperacillin Sod/ Tazobactam Sod 4.5 gm/Dextrose 120 ml @ 30 mls/hr Q8H IV 04/15/17 04:00 04/17/17 12:43 DC 04/17/17 12:04 30 MLS/HR Vancomycin HCl (Vancomycin Oral Soln) 250 mg QID PO 04/14/17 23:00 04/15/17 06:20 DC 04/14/17 23:04 250 MG Albuterol/ Ipratropium (Duoneb) 3 ml QIDR INH 04/15/17 08:00 05/15/17 07:59 04/20/17 07:40 3 ML Guaifenesin (Organidin Nr Tab) 200 mg Q4H PO 04/15/17 00:00 05/15/17 00:00 04/19/17 16:31 200 MG Methylprednisolone Sodium Succinate 60 mg/Syringe 0.96 ml @ 1.5 mls/min Q8H IV 04/15/17 00:00 04/16/17 11:15 DC 04/16/17 07:49 1.5 MLS/MIN Magnesium Sulfate 1 gm/Prmx 100 ml @ 100 mls/hr TODAY@0000,2300 IV 04/14/17 23:00 04/15/17 00:59 DC 04/15/17 02:17 100 MLS/HR Piperacillin Sod/ Tazobactam Sod 4.5 gm/Dextrose 120 ml @ 200 mls/hr NOW ONCE IV 04/14/17 22:30 04/14/17 23:05 DC 04/14/17 22:57 200 MLS/HR Insulin Glargine (Lantus Solostar Pen) 12 units BID SC 04/14/17 21:00 04/15/17 14:40 DC 04/15/17 08:03 12 UNITS Raspberry (Raspberry Syrup 5ml Cup) 5 ml QID PO 04/14/17 23:00 04/15/17 06:20 DC 04/14/17 23:04 5 ML Heparin Sodium (Porcine) (Heparin 100 Unit/ml 5ml Flush) 5 ml PRN PRN IV 04/15/17 04:00 05/15/17 03:59 04/20/17 08:12 5 ML Filgrastim (Neupogen Sq) 480 mcg DAILY SC 04/15/17 14:00 04/18/17 08:13 DC 04/17/17 10:10 480 MCG Insulin Glargine (Lantus Solostar Pen) 40 units BID SC 04/15/17 20:00 04/17/17 10:49 DC 04/17/17 08:59 40 UNITS Enteral Nutritional Formula (Boost Glucose Control) 1 can BID PO 04/15/17 20:00 05/15/17 19:59 04/19/17 20:46 1 CAN Potassium Chloride (Klor-Con Tab) 40 meq BID PO 04/16/17 20:00 04/19/17 14:15 DC 04/17/17 08:39 40 MEQ Potassium Chloride (Klor-Con Tab) 40 meq 0930 ONCE PO 04/16/17 09:30 04/16/17 09:31 DC 04/16/17 11:48 40 MEQ Furosemide 20 mg/ Syringe 2 ml @ 4 mls/min ONE ONCE IV 04/16/17 09:30 04/16/17 09:31 DC 04/16/17 11:47 4 MLS/MIN Prednisone (PredniSONE TAB) 50 mg Taper DAILY PO 04/17/17 08:00 05/04/17 07:59 04/19/17 08:17 50 MG Prednisone (PredniSONE TAB) 60 mg NOW ONCE PO 04/16/17 12:00 04/16/17 12:01 DC 04/16/17 12:05 60 MG Albuterol (Ventolin Hfa Inhaler) 2 puffs Q4H PRN INH 04/16/17 14:00 05/15/17 00:00 04/20/17 08:17 2 PUFFS Insulin Glargine (Lantus Solostar Pen) 40 units DAILY@0800 SC 04/18/17 08:00 05/18/17 07:59 04/20/17 08:25 40 UNITS Insulin Glargine (Lantus Solostar Pen) 20 units HS SC 04/17/17 21:00 05/17/17 20:59 04/19/17 20:49 20 UNITS Furosemide 20 mg/ Syringe 2 ml @ 4 mls/min ONE ONCE IV 04/17/17 17:15 04/17/17 17:16 DC 04/17/17 17:46 4 MLS/MIN Sodium Chloride ([place] Nasal [place]) 225 sprays STK-MED ONCE .ROUTE 04/17/17 20:59 04/17/17 21:00 DC 04/17/17 21:09 225 SPRAYS Furosemide 40 mg/ Syringe 4 ml @ 4 mls/min TODAY@0830 ONCE IV 04/18/17 08:30 04/18/17 08:31 DC 04/18/17 09:12 4 MLS/MIN Hydroxyzine HCl (Vistaril Tab) 50 mg HSZ PRN PO 04/18/17 15:30 05/14/17 20:59 04/19/17 21:56 50 MG Enoxaparin Sodium (Lovenox Inj) 40 mg Q24H SQ 04/18/17 21:00 05/18/17 20:59 04/19/17 20:47 40 MG Bumetanide 2 mg/ Syringe 8 ml @ 4 mls/min TODAY@1430 ONCE IV 04/19/17 14:30 04/19/17 14:31 DC 04/19/17 14:37 4 MLS/MIN Trazodone HCl (Desyrel Tab) 25 mg 0315 ONCE PO 3/12/18 03:15 04/20/17 03:19 DC 04/20/17 03:24 25 MG Subjective Mr. Jordan looks uncomfortable breathing, though he denies this. He had a difficult night, as he was up frequently coughing. His diarrhea has mostly resolved and his counts have recovered. Review of Systems: Constitutional: + weakness, + fatigue, No fever Respiratory: + cough, + sputum, No shortness of breath Cardiovascular: No chest pain Abdomen: No pain, No nausea, No diarrhea Musculoskeletal: No joint pain, No muscle pain Heme: No abnormal bleeding/bruising Vital Signs Vital Signs Past 12 Hours Date Time Temp Pulse Resp B/P (MAP) Pulse Ox O2 Delivery O2 Flow Rate FiO2 04/20/17 08:38 90 Nasal Cannula 2.5 04/20/17 07:42 117 20 93 Nasal Cannula 3.0 04/20/17 07:33 118 114/61 (78) 04/20/17 07:32 120 137/70 (92) 04/20/17 07:30 36.4 114 20 130/69 (89) 90 Nasal Cannula 2.5 04/20/17 04:20 36.4 96 20 116/66 (83) 94 Nasal Cannula 3.0 04/20/17 00:00 Nasal Cannula 3.0 BiPAP 04/19/17 23:31 36.5 104 24 128/69 (88) 95 CPAP Physical Exam Constitutional: General Apperance: obese Level of Distress: mild distress Psychiatric: Mental Status: active & alert Orientation: oriented except where noted Lungs: Respiratory Effort: tachypneic, use of accessory muscles Auscuitation: breath sounds normal Cardiovascular: Heart Auscultation: RRR Abdomen: Inspection & Palpation: soft, no tenderness, guarding & rebound Extremities: pertinent finding (stable chronic venous stasis changes) Laboratory Last 24 Hours Test 04/19/17 12:09 04/19/17 17:03 04/19/17 20:17 04/20/17 05:39 Bedside Glucose 140 mg/dl 245 mg/dl 162 mg/dl White Blood Count 12.96 K/uL Red Blood Count 3.28 M/uL Hemoglobin 9.8 g/dL Hematocrit 29.8 % Mean Corpuscular Volume 90.9 fL Mean Corpuscular Hemoglobin 29.9 pg Mean Corpuscular Hemoglobin Concent 32.9 g/dl RDW Standard Deviation 44.0 fL RDW Coefficient of Variation 13.3 % Platelet Count 73 K/uL Mean Platelet Volume 10.3 fL Nucleated RBC Absolute Count (auto) 0.02 K/uL Nucleated Red Blood Cells % 0.2 % Sodium Level 134 mmol/L Potassium Level 3.8 mmol/L Chloride Level 100 mmol/L Carbon Dioxide Level 28 mmol/L Anion Gap 6.0 mmol/L Blood Urea Nitrogen 57 mg/dl Creatinine 1.25 mg/dl Est Creatinine Clear Calc Drug Dose 68.1 ml/min Estimated GFR () 64.9 Estimated GFR (Non- 56.0 BUN/Creatinine Ratio 45.4 Random Glucose 101 mg/dl Calcium Level 7.5 mg/dl Test 04/20/17 07:35 04/20/17 07:37 04/20/17 08:23 Bedside Glucose 86 mg/dl 68 mg/dl 96 mg/dl Assessment & Plan Mr. Jordan has small cell lung cancer with a mediastinal mass that appeared to be impacting his breathing. We started concurrent chemotherapy and radiation 2 weeks ago, but his treatment is currently on hold due to prolonged recovery of his counts. He has also been more or less continuously hospitalized due to difficulty breathing. He continues to be visibly laboring to breathe, though he denies feeling short of breath. His counts have recovered, which should help his energy some. Once he is ready for discharge, we can meet in my office to discuss continuing treatment.
[2017-04-20] MEDS: ASPIRIN 81 MG ECTAB PO SCH (11:37)
[2017-04-20] MEDS: TIOTROPIUM BROMIDE 5 PUFF/90 MCG INH INH SCH (11:38)
[2017-04-20] MEDS: AMLODIPINE BESYLATE 5 MG TAB PO SCH (11:38)
[2017-04-20] MEDS: POTASSIUM CHLORIDE 20 MEQ/15 ML UDC PO SCH (11:39)
[2017-04-20] MEDS: ATORVASTATIN 20 MG TAB PO SCH (11:40)
[2017-04-20] MEDS ORDERED: BUMETANIDE SOLN 1 MG/4 ML VIAL IV ONE (13:15)
--- NOTE | 2017-04-20 13:19 | Hospitalist Progress Note ---
Hospitalist Progress Note Date of Service Apr 20, 2017. Subjective Pt evaluation today including: conversation w/ patient, physical exam, lab review, review of studies, review of inpatient medication list Voiding: no voiding problems Patient resting in bed w/ BiPAP on. [place] tired and did not feel like engaging in conversation. Denied any questions, concerns, complaints. Eating and drinking OK. Patient denies any fever, chills, sweats, lightheadedness, dizziness, vision changes, CP, palpitations, edema, SOB, wheezing, cough, abdominal pain, nausea, vomiting, diarrhea, urinary symptoms, melena, numbness/tingling, weakness, muscle/joint pain, anxiety/depression, active bleeding, or new skin discoloration/changes. Medications Current Inpatient Medications Medications (Trade) Dose Ordered Sig/Michel Route Start Time Stop Time Status Last Admin Dose Admin Acetaminophen (Tylenol Tab) 650 mg Q4H PRN PO 04/14/17 21:00 05/14/17 20:59 Magnesium Hydroxide (Milk Of Magnesia Susp) 30 ml Q6H PRN PO 04/14/17 21:00 05/14/17 20:59 Polyethylene (Miralax Powder Packet) 17 gm DAILY PRN PO 04/14/17 21:00 05/14/17 20:59 Ondansetron HCl (Zofran Inj) 4 mg Q6H PRN IV 04/14/17 21:00 05/14/17 20:59 04/20/17 08:09 4 MG Insulin Aspart (novoLOG ASPART) SLIDING SCALE If C... ACHS SC 04/14/17 21:00 05/14/17 20:59 04/19/17 17:20 18 UNITS Glucose (Glucose 40% Gel) 15-30 GRAMS 15 GRAMS... UD PRN PO 04/14/17 21:00 05/14/17 20:59 Glucose (Glucose Chew Tab) 4-8 Tablets 4 Tabl... UD PRN PO 04/14/17 21:00 05/14/17 20:59 Dextrose (Dextrose 50% 50ML Syringe) 25-50ML OF 50% DW IV FOR... UD PRN IV 04/14/17 21:00 05/14/17 20:59 Glucagon (Glucagon Inj) 1 mg UD PRN SQ 04/14/17 21:00 05/14/17 20:59 Amlodipine Besylate (Norvasc Tab) 5 mg QAM PO 04/15/17 08:00 05/15/17 08:59 04/20/17 11:38 5 MG Aspirin (Ecotrin Tab) 81 mg DAILY PO 04/15/17 08:00 05/15/17 08:59 04/20/17 11:37 81 MG Atorvastatin Calcium (Lipitor Tab) 40 mg DAILY PO 04/15/17 08:00 05/15/17 08:59 04/20/17 11:40 40 MG Budesonide/ Formoterol Fumarate (Symbicort 160/ 4.5 Inh) 2 puffs BID INH 04/15/17 08:00 05/15/17 07:59 04/20/17 08:17 2 PUFFS Furosemide (Lasix Tab) 20 mg DAILY PO 04/15/17 08:00 05/15/17 08:59 Future Hold 04/18/17 07:40 20 MG Nicotine (Nicoderm Cq 21MG Patch) 1 patch DAILY TD 04/15/17 08:00 05/15/17 08:59 Tiotropium [place] (Spiriva Handihaler Inhaler) 1 puff QAM INH 04/15/17 08:00 05/15/17 08:59 04/20/17 11:38 1 PUFF Albuterol/ Ipratropium (Duoneb) 3 ml QIDR INH 04/15/17 08:00 05/15/17 07:59 04/20/17 11:35 3 ML Guaifenesin (Organidin Nr Tab) 200 mg Q4H PO 04/15/17 00:00 05/15/17 00:00 04/19/17 16:31 200 MG Miscellaneous (Remove Nicoderm Patch) 1 ea DAILY@0759 N/A 04/15/17 07:59 05/15/17 07:58 Heparin Sodium (Porcine) (Heparin 100 Unit/ml 5ml Flush) 5 ml PRN PRN IV 04/15/17 04:00 05/15/17 03:59 04/20/17 08:12 5 ML Enteral Nutritional Formula (Boost Glucose Control) 1 can BID PO 04/15/17 20:00 05/15/17 19:59 04/19/17 20:46 1 CAN Prednisone (PredniSONE TAB) 50 mg Taper DAILY PO 04/17/17 08:00 05/04/17 07:59 04/20/17 11:40 50 MG Albuterol (Ventolin Hfa Inhaler) 2 puffs Q4H PRN INH 04/16/17 14:00 05/15/17 00:00 04/20/17 08:17 2 PUFFS Insulin Glargine (Lantus Solostar Pen) 40 units DAILY@0800 SC 04/18/17 08:00 05/18/17 07:59 04/20/17 08:25 40 UNITS Insulin Glargine (Lantus Solostar Pen) 20 units HS SC 04/17/17 21:00 05/17/17 20:59 04/19/17 20:49 20 UNITS Lidocaine HCl/ Diphenhydramine HCl/Al Hydroxide/ Mg Hydroxide/ Glycerin/Barcode Q4H PRN MT 04/18/17 10:15 05/18/17 10:14 Hydroxyzine HCl (Vistaril Tab) 50 mg HSZ PRN PO 04/18/17 15:30 05/14/17 20:59 04/19/17 21:56 50 MG Enoxaparin Sodium (Lovenox Inj) 40 mg Q24H SQ 04/18/17 21:00 05/18/17 20:59 04/19/17 20:47 40 MG Potassium Chloride ([place]) 40 meq QAM PO 04/20/17 08:00 05/20/17 07:59 04/20/17 11:39 40 MEQ Objective Vital Signs Date Time Temp Pulse Resp B/P (MAP) Pulse Ox O2 Delivery O2 Flow Rate FiO2 04/20/17 11:35 107 20 93 Nasal Cannula 3.0 04/20/17 08:38 90 Nasal Cannula 2.5 04/20/17 08:15 Nasal Cannula 3.0 04/20/17 07:42 117 20 93 Nasal Cannula 3.0 04/20/17 07:33 118 114/61 (78) 04/20/17 07:32 120 137/70 (92) 04/20/17 07:30 36.4 114 20 130/69 (89) 90 Nasal Cannula 2.5 04/20/17 04:20 36.4 96 20 116/66 (83) 94 Nasal Cannula 3.0 04/20/17 00:00 Nasal Cannula 3.0 BiPAP 04/19/17 23:31 36.5 104 24 128/69 (88) 95 CPAP 04/19/17 20:07 93 20 96 Room Air 04/19/17 18:59 36.4 116 22 96/62 (73) 95 Nasal Cannula 3.0 04/19/17 16:30 Nasal Cannula 3.0 04/19/17 14:22 36.6 110 22 90/53 (65) 93 Nasal Cannula 3.0 97 118/60 (79) 88 113/65 (81) 04/19/17 13:54 90 20 95 Room Air Physical Exam General Appearance: no apparent distress, + obese, + pertinent finding (BiPAP ) Eyes: normal inspection, PERRL ENT: hearing grossly normal Neck: supple Respiratory/Chest: lungs clear, no respiratory distress, no accessory muscle use, + decreased breath sounds (throughout ) Cardiovascular: regular rate, rhythm Abdomen: normal bowel sounds, non tender, soft Extremities: no calf tenderness, + pedal edema (+1-2 pitting edema of bilateral upper/lower extremities ) Neurologic/Psychiatric: alert, oriented x 3 Skin: normal color, warm/dry, no rash Laboratory Results Last 24 Hours Test 04/19/17 17:03 04/19/17 20:17 04/20/17 05:39 04/20/17 07:37 Bedside Glucose 245 mg/dl 162 mg/dl 68 mg/dl White Blood Count 12.96 K/uL Red Blood Count 3.28 M/uL Hemoglobin 9.8 g/dL Hematocrit 29.8 % Mean Corpuscular Volume 90.9 fL Mean Corpuscular Hemoglobin 29.9 pg Mean Corpuscular Hemoglobin Concent 32.9 g/dl RDW Standard Deviation 44.0 fL RDW Coefficient of Variation 13.3 % Platelet Count 73 K/uL Mean Platelet Volume 10.3 fL Nucleated RBC Absolute Count (auto) 0.02 K/uL Nucleated Red Blood Cells % 0.2 % Sodium Level 134 mmol/L Potassium Level 3.8 mmol/L Chloride Level 100 mmol/L Carbon Dioxide Level 28 mmol/L Anion Gap 6.0 mmol/L Blood Urea Nitrogen 57 mg/dl Creatinine 1.25 mg/dl Est Creatinine Clear Calc Drug Dose 68.1 ml/min Estimated GFR () 64.9 Estimated GFR (Non- 56.0 BUN/Creatinine Ratio 45.4 Random Glucose 101 mg/dl Calcium Level 7.5 mg/dl Test 04/20/17 08:23 04/20/17 11:31 Bedside Glucose 96 mg/dl 112 mg/dl Assessment and Plan 76-year-old male here with neutropenic fever and pancytopenia from chemotherapy that was to treat a 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 that was diagnosed in the last few weeks patient has underlying COPD and sleep apnea requiring nocturnal BiPAP he has moderate protein malnutrition and likely peripheral edema because of the same Neutropenic fevers: - Treated w/ Neupogen - Neutropenic precautions - IV Zosyn prophylactically- no source of infection, d/c'ed - UA negative; BCx negative; sputum culture negative; C.diff negative - Hematology/oncology consulted- holding chemo/radiation, f/u outpatient Pancytopenia, secondary to chemotherapy- RESOLVED Small Cell Lung Cancer: Hematology/oncology following Bilateral UE swelling: - UE US neg for DVT - ECHO 03/29/17- very limited, patient could not tolerate lying flat due to SOB - Bumex 2 mg IV x1 on 04/19- will give addition dose today [place] on CKD stage III- RESOLVED: Improved w/ IV Bumex yesterday, will give additional dose today and follow PRP Hypokalemia- RESOLVED: Continue KCL supplement Diarrhea- RESOLVED: C. diff negative COPD: - O2 protocol - BiPAP HS - Continue Prednisone taper - Continue Symbicort, Spiriva, DuoNebs PRN CAD, HLD: Continue Aspirin, Lipitor, Norvasc T2DM: - Lantus 40 u QAM and 20 u HS - BSG ACHS and ISS Insomnia: Vistaril HS DVT prophylaxis: Lovenox SQ Code status: LEVEL I, FULL Dispo: Discharge uncertain at this time- PT/OT and CM consulted
[2017-04-20] MEDS ORDERED: BUMETANIDE IV 2 MG in SYRINGE 0 ML IV ONE (13:45)
[2017-04-20] MEDS ORDERED: INSULIN GLARGINE SOLOSTAR 100 UNITS/ML 3 ML PEN SC SCH (21:00)
[2017-04-20] MEDS: ENOXAPARIN 40 MG/0.4 ML SYR SQ SCH (21:04)
[2017-04-21] VITALS (12 sets, daily range): BP systolic 111–150; BP diastolic 64–84; PULSE 93–110; TEMP 35.8–36.6; O2SAT 90–98
[2017-04-21] MEDS: GUAIFENESIN 200 MG TAB PO SCH ×3 (03:38→08:44)
[2017-04-21 06:11] LABS: MEAN CORPUSCULAR HGB CONC 34.3 g/dl (32-36); NUCLEATED RED BLOOD CELL ABS 0.02 K/uL (0-0)
[2017-04-21 06:47] LABS: CALCIUM 7.5 mg/dl (8.5-10.1); CREATININE 1.27 mg/dl (0.60-1.40); HEMOGLOBIN 9.6 g/dL (14.0-18.0); MEAN CELL VOLUME 90.9 fL (80-100); MEAN CORPUSCULAR HEMOGLOBIN 31.2 pg (25-34); PLATELET COUNT 90 K/uL (130-400); POTASSIUM 4.3 mmol/L (3.5-5.1); RED CELL DISTRIBUTION WIDTH CV 13.5 % (11.5-14.5); RED CELL DISTRIBUTION WIDTH SD 44.6 fL (36.4-46.3); WHITE BLOOD COUNT 13.31 K/uL (4.8-10.8)
[2017-04-21] MEDS: ALBUT/IPRATROP 3MG/0.5MG NEB 3 ML VIAL INH SCH ×4 (07:25→19:25)
[2017-04-21] MEDS ORDERED: INSULIN GLARGINE SOLOSTAR 100 UNITS/ML 3 ML PEN SC SCH (08:00)
[2017-04-21] MEDS: AMLODIPINE BESYLATE 5 MG TAB PO SCH (08:43)
[2017-04-21] MEDS: POTASSIUM CHLORIDE 20 MEQ/15 ML UDC PO SCH (08:43)
[2017-04-21] MEDS: ASPIRIN 81 MG ECTAB PO SCH (08:44)
[2017-04-21] MEDS: ATORVASTATIN 20 MG TAB PO SCH (08:49)
[2017-04-21] MEDS: NICOTINE 21 MG/24 HR TDSY TD SCH (08:49)
[2017-04-21] MEDS: BUDESONIDE/FORMOTEROL FUMARATE 160/4.5 60 PUFFS/INHALER INH SCH ×2 (08:50→20:53)
[2017-04-21] MEDS: TIOTROPIUM BROMIDE 5 PUFF/90 MCG INH INH SCH (08:50)
[2017-04-21] MEDS: INSULIN ASPART 100 UNITS/ML 3 ML PEN SC SCH ×4 (08:56→20:57)
[2017-04-21] MEDS: BOOST GLUCOSE CONTROL PO SCH ×2 (09:05→20:00)
--- NOTE | 2017-04-21 11:27 | Palliative Care Consultation ---
Consultation Date of Consultation: Apr 21, 2017. Requesting Physician: Dr. Vidal Attending Physician: Dr. Vidal Reason for Consultation: Goals of care History of Present Illness This 76 year old male patient with PMH small cell lung cancer, DM, htn, HLD, morbid obesity, and COPD on home oxygen, presented to the hospital a week ago with c/o fever, weakness, chills and fatigue. Patient was just in hospital from March 30 to April 13 with respiratory failure and lung mass, requiring intubation for part of the time. He has been receiving concurrent chemo and radiation therapy for the small cell lung cancer and so far has not tolerated well. He has been experiencing neutropenia, weakness, physical deconditioning, and SOB even at rest. Patient also has been experiencing UE/LE edema. Venous Doppler studies negative for occlusion or DVT of upper/lower extremities. Per Dr. Ambriz, the patient's cancer is rather treatable, but unfortunately patient's deteriorating health otherwise and low reserve is making treatment difficult. Plan is for heme/onc to meet patient on outpatient basis to discuss further treatment options. Patient unable to have chemotherapy at this time and has refused radiation treatment today. Palliative care is consulted to assist with establishing goals of care. I met with the patient in room [address] Navarro. He is awake, alert and oriented. Appears short of breath although patient denies discomfort. He admits to having poor appetite, weakness, fatigue and just generally not feeling well. Patient refused radiation today due to the above complaints, but states it is his goal to be able to continue with treatment for the cancer. Patient really could not differentiate between chemotherapy and radiation therapy or elaborate on how either of them make him feel. When asked about senior living goals of care, all he could really say was that he wanted treatment for the cancer but when we inquired about symptom management so he could feel well enough to go for his radiation treatment he said, "No. I'm not going, I told them that!" We did not get to discuss code status. Patient states that his daughter, Meagan Jordan, is his surrogate decision maker and helps him out at home a good bit. Past Medical/Surgical History Medical History: as above Social History Smoking Status: Current Every Day Smoker History of Alcohol Use: No Drug Use: none Marital Status: Housing Status: lives with family Occupation Status: retired Review of Systems Constitutional: + weakness, + fatigue ENT: No trouble swallowing Respiratory: + cough, + wheezing, + dyspnea on exertion, No sputum Cardiac: + edema, No chest pain Abdomen: + problem reported (poor appetite), No pain, No nausea, No vomiting Male : No problem reported Psychiatric: No depression symptoms, No anxiety Allergies Coded Allergies: No Known Allergies (Verified , 03/28/17) Medications Current Inpatient Medications Medications (Trade) Dose Ordered Sig/Michel Route Start Time Stop Time Status Last Admin Dose Admin Acetaminophen (Tylenol Tab) 650 mg Q4H PRN PO 04/14/17 21:00 05/14/17 20:59 Magnesium Hydroxide (Milk Of Magnesia Susp) 30 ml Q6H PRN PO 04/14/17 21:00 05/14/17 20:59 Polyethylene (Miralax Powder Packet) 17 gm DAILY PRN PO 04/14/17 21:00 05/14/17 20:59 Ondansetron HCl (Zofran Inj) 4 mg Q6H PRN IV 04/14/17 21:00 05/14/17 20:59 04/20/17 08:09 4 MG Insulin Aspart (novoLOG ASPART) SLIDING SCALE If C... ACHS SC 04/14/17 21:00 05/14/17 20:59 04/21/17 08:56 10 UNITS Glucose (Glucose 40% Gel) 15-30 GRAMS 15 GRAMS... UD PRN PO 04/14/17 21:00 05/14/17 20:59 Glucose (Glucose Chew Tab) 4-8 Tablets 4 Tabl... UD PRN PO 04/14/17 21:00 05/14/17 20:59 Dextrose (Dextrose 50% 50ML Syringe) 25-50ML OF 50% DW IV FOR... UD PRN IV 04/14/17 21:00 05/14/17 20:59 Glucagon (Glucagon Inj) 1 mg UD PRN SQ 04/14/17 21:00 05/14/17 20:59 Amlodipine Besylate (Norvasc Tab) 5 mg QAM PO 04/15/17 08:00 05/15/17 08:59 04/21/17 08:43 5 MG Aspirin (Ecotrin Tab) 81 mg DAILY PO 04/15/17 08:00 4/6/18 08:59 04/21/17 08:44 81 MG Atorvastatin Calcium (Lipitor Tab) 40 mg DAILY PO 04/15/17 08:00 05/15/17 08:59 04/21/17 08:49 40 MG Budesonide/ Formoterol Fumarate (Symbicort 160/ 4.5 Inh) 2 puffs BID INH 04/15/17 08:00 05/15/17 07:59 04/21/17 08:50 2 PUFFS Furosemide (Lasix Tab) 20 mg DAILY PO 04/15/17 08:00 05/15/17 08:59 Future Hold 04/18/17 07:40 20 MG Nicotine (Nicoderm Cq 21MG Patch) 1 patch DAILY TD 04/15/17 08:00 05/15/17 08:59 Tiotropium [place] (Spiriva Handihaler Inhaler) 1 puff QAM INH 04/15/17 08:00 05/15/17 08:59 04/21/17 08:50 1 PUFF Albuterol/ Ipratropium (Duoneb) 3 ml QIDR INH 04/15/17 08:00 05/15/17 07:59 04/21/17 07:25 3 ML Guaifenesin (Organidin Nr Tab) 200 mg Q4H PO 04/15/17 00:00 05/15/17 00:00 04/21/17 08:44 200 MG Miscellaneous (Remove Nicoderm Patch) 1 ea DAILY@0759 N/A 04/15/17 07:59 05/15/17 07:58 Heparin Sodium (Porcine) (Heparin 100 Unit/ml 5ml Flush) 5 ml PRN PRN IV 04/15/17 04:00 05/15/17 03:59 04/21/17 05:37 5 ML Enteral Nutritional Formula (Boost Glucose Control) 1 can BID PO 04/15/17 20:00 05/15/17 19:59 04/20/17 21:01 1 CAN Prednisone (PredniSONE TAB) 50 mg Taper DAILY PO 04/17/17 08:00 05/04/17 07:59 04/21/17 08:44 50 MG Albuterol (Ventolin Hfa Inhaler) 2 puffs Q4H PRN INH 04/16/17 14:00 05/15/17 00:00 04/20/17 08:17 2 PUFFS Lidocaine HCl/ Diphenhydramine HCl/Al Hydroxide/ Mg Hydroxide/ Glycerin/Barcode Q4H PRN MT 04/18/17 10:15 05/18/17 10:14 Hydroxyzine HCl (Vistaril Tab) 50 mg HSZ PRN PO 04/18/17 15:30 05/14/17 20:59 04/19/17 21:56 50 MG Enoxaparin Sodium (Lovenox Inj) 40 mg Q24H SQ 04/18/17 21:00 05/18/17 20:59 04/20/17 21:04 40 MG Potassium Chloride (Shelby Ciel Elix) 40 meq QAM PO 04/20/17 08:00 05/20/17 07:59 04/20/17 11:39 40 MEQ Insulin Glargine (Lantus Solostar Pen) 16 units HS SC 04/20/17 21:00 05/17/17 20:59 04/20/17 21:04 16 UNITS Insulin Glargine (Lantus Solostar Pen) 36 units DAILY@0800 SC 04/21/17 08:00 05/18/17 07:59 04/21/17 08:57 36 UNITS Physical Exam Date Time Temp Pulse Resp B/P (MAP) Pulse Ox O2 Delivery O2 Flow Rate FiO2 04/21/17 07:25 93 20 93 Nasal Cannula 2.0 04/21/17 07:11 35.8 95 22 133/68 (89) 96 BiPAP 04/21/17 03:30 36.6 93 20 136/84 (101) 95 CPAP 04/21/17 00:05 Nasal Cannula 3.0 04/20/17 23:00 36.4 102 22 146/53 (84) 96 CPAP 04/20/17 20:05 Nasal Cannula 3.0 04/20/17 19:49 102 20 95 Nasal Cannula 3.0 04/20/17 19:26 36.6 109 20 146/75 (98) 94 Nasal Cannula 3.0 04/20/17 16:00 Nasal Cannula 3.0 04/20/17 15:39 36.6 112 22 153/77 (102) 95 CPAP 04/20/17 15:20 94 20 91 Nasal Cannula 2.0 04/20/17 11:35 107 20 93 Nasal Cannula 3.0 General Appearance: + obese ENT: hearing grossly normal Neck: supple, no JVD Respiratory: + decreased breath sounds (extremely diminished air exchange throughout lung [place]), + accessory muscle use, + rhonchi (coarse throughout), + wheezing (expiratory), + pertinent finding (pursed lip breathing) Cardiovascular: regular rate, rhythm, + pertinent finding (pedal pulses nonpalpable due to severe edema. +4 pitting edema to UE/LE) Abdomen: normal bowel sounds, non tender, soft Neurologic/Psychiatric: alert, normal mood/affect, oriented x 3 Skin: normal color Laboratory Results Last 24 Hours Test 04/20/17 11:31 04/20/17 16:50 04/20/17 20:08 04/21/17 05:39 Bedside Glucose 112 mg/dl 189 mg/dl 195 mg/dl White Blood Count 13.31 K/uL Red Blood Count 3.08 M/uL Hemoglobin 9.6 g/dL Hematocrit 28.0 % Mean Corpuscular Volume 90.9 fL Mean Corpuscular Hemoglobin 31.2 pg Mean Corpuscular Hemoglobin Concent 34.3 g/dl Platelet Count 90 K/uL Mean Platelet Volume 10.0 fL RDW Standard Deviation 44.6 fL RDW Coefficient of Variation 13.5 % Nucleated RBC Absolute Count (auto) 0.02 K/uL Neutrophils % (Manual) 91.2 % Lymphocytes % (Manual) 0.0 % Monocytes % (Manual) 3.5 % Metamyelocytes % 3.5 % Myelocytes % 1.8 % Nucleated Red Blood Cells % 0.1 % Neutrophils # (Manual) 12.14 K/uL Total Absolute Neutrophils 12.14 K/uL Total Absolute Lymphocytes 0.00 K/uL Monocytes # (Manual) 0.47 K/uL Metamyelocytes # 0.47 K/uL Myelocytes # 0.24 K/uL Toxic Granulation 2+ Toxic Vacuolation OCCASIONAL Sodium Level 133 mmol/L Potassium Level 4.3 mmol/L Chloride Level 99 mmol/L Carbon Dioxide Level 28 mmol/L Anion Gap 6.0 mmol/L Blood Urea Nitrogen 53 mg/dl Creatinine 1.27 mg/dl Est Creatinine Clear Calc Drug Dose 66.4 ml/min Estimated GFR () 63.6 Estimated GFR (Non- 54.9 BUN/Creatinine Ratio 41.9 Random Glucose 131 mg/dl Calcium Level 7.5 mg/dl Test 04/21/17 07:45 Bedside Glucose 136 mg/dl Assessment & Plan Palliative Performance Scale: 40 % Problem list: BANG Fatigue Generalized weakness COPD, presumably severe Small cell lung cancer Goals of care Palliative care recs: -Patient remains full code at this time. I did not discuss this with him during our visit. -Patient's goal is to continue treatment and wants "to shrink the tumor" on his chest. However, he is currently refusing treatment due to not feeling well. Dr. Navarro and I attempted to sort of which symptoms we could help to alleviate, but patient really couldn't elaborate and did not seem interested in discussing. -Patient seems to have very little knowledge of his treatment, goals of care, or his disease process. It seems that his COPD and obesity are playing a major role in this. Further treatment for the cancer uncertain at this time. -We will continue to follow as needed and try to help patient sort through goals and symptoms. Thank you for this consult. Total time spent 50 minutes with >50% of time spent with patient counseling and discussing goals of care.
[2017-04-21] MEDS ORDERED: GUAIFENESIN 200 MG TAB PO PRN (12:00)
[2017-04-21] MEDS ORDERED: BUMETANIDE SOLN 1 MG/4 ML VIAL IV ONE (14:00)
[2017-04-21] MEDS ORDERED: BUMETANIDE IV 2 MG in SYRINGE 0 ML IV ONE (14:00)
--- NOTE | 2017-04-21 14:01 | Hospitalist Progress Note ---
Hospitalist Progress Note Date of Service Apr 21, 2017. Subjective Pt evaluation today including: conversation w/ patient, physical exam, lab review, conversation w/ home energy consultant, review of inpatient medication list Patient resting in bed. BiPAP on. Asked if SOB, stated, "I don't know." Patient did not engage in conversation. Asked if feeling well and stated, "no," but would not elaborate. Asked if had any questions/concerns, stated "no." Stated he did not want to receive radiation therapy today. Patient denies any fever, chills, sweats, lightheadedness, dizziness, vision changes, CP, palpitations, edema, SOB, wheezing, cough, abdominal pain, nausea, vomiting, diarrhea, urinary symptoms, melena, numbness/tingling, weakness, muscle/joint pain, anxiety/depression, active bleeding, or new skin discoloration/changes. Discussed w/ palliative care- patient unsure of wishes and defers to his daughter. Oncology believes patient's poor condition is due to underlying lung disease rather than cancer. Per RN, patient will not get out of bed. Encourages patient to sit in chair but refuses. Medications Current Inpatient Medications Medications (Trade) Dose Ordered Sig/Michel Route Start Time Stop Time Status Last Admin Dose Admin Acetaminophen (Tylenol Tab) 650 mg Q4H PRN PO 04/14/17 21:00 05/14/17 20:59 Magnesium Hydroxide (Milk Of Magnesia Susp) 30 ml Q6H PRN PO 04/14/17 21:00 05/14/17 20:59 Polyethylene (Miralax Powder Packet) 17 gm DAILY PRN PO 04/14/17 21:00 05/14/17 20:59 Ondansetron HCl (Zofran Inj) 4 mg Q6H PRN IV 04/14/17 21:00 05/14/17 20:59 04/20/17 08:09 4 MG Insulin Aspart (novoLOG ASPART) SLIDING SCALE If C... ACHS SC 04/14/17 21:00 05/14/17 20:59 04/21/17 08:56 10 UNITS Glucose (Glucose 40% Gel) 15-30 GRAMS 15 GRAMS... UD PRN PO 04/14/17 21:00 05/14/17 20:59 Glucose (Glucose Chew Tab) 4-8 Tablets 4 Tabl... UD PRN PO 04/14/17 21:00 05/14/17 20:59 Dextrose (Dextrose 50% 50ML Syringe) 25-50ML OF 50% DW IV FOR... UD PRN IV 04/14/17 21:00 05/14/17 20:59 Glucagon (Glucagon Inj) 1 mg UD PRN SQ 04/14/17 21:00 05/14/17 20:59 Amlodipine Besylate (Norvasc Tab) 5 mg QAM PO 04/15/17 08:00 05/15/17 08:59 04/21/17 08:43 5 MG Aspirin (Ecotrin Tab) 81 mg DAILY PO 04/15/17 08:00 05/15/17 08:59 04/21/17 08:44 81 MG Atorvastatin Calcium (Lipitor Tab) 40 mg DAILY PO 04/15/17 08:00 05/15/17 08:59 04/21/17 08:49 40 MG Budesonide/ Formoterol Fumarate (Symbicort 160/ 4.5 Inh) 2 puffs BID INH 04/15/17 08:00 05/15/17 07:59 04/21/17 08:50 2 PUFFS Furosemide (Lasix Tab) 20 mg DAILY PO 04/15/17 08:00 05/15/17 08:59 Future Hold 04/18/17 07:40 20 MG Tiotropium [place] (Spiriva Handihaler Inhaler) 1 puff QAM INH 04/15/17 08:00 05/15/17 08:59 04/21/17 08:50 1 PUFF Albuterol/ Ipratropium (Duoneb) 3 ml QIDR INH 04/15/17 08:00 05/15/17 07:59 04/21/17 11:13 3 ML Heparin Sodium (Porcine) (Heparin 100 Unit/ml 5ml Flush) 5 ml PRN PRN IV 04/15/17 04:00 05/15/17 03:59 04/21/17 05:37 5 ML Enteral Nutritional Formula (Boost Glucose Control) 1 can BID PO 04/15/17 20:00 05/15/17 19:59 04/20/17 21:01 1 CAN Prednisone (PredniSONE TAB) 50 mg Taper DAILY PO 04/17/17 08:00 05/04/17 07:59 04/21/17 08:44 50 MG Albuterol (Ventolin Hfa Inhaler) 2 puffs Q4H PRN INH 04/16/17 14:00 05/15/17 00:00 04/20/17 08:17 2 PUFFS Lidocaine HCl/ Diphenhydramine HCl/Al Hydroxide/ Mg Hydroxide/ Glycerin/Barcode Q4H PRN MT 04/18/17 10:15 05/18/17 10:14 Hydroxyzine HCl (Vistaril Tab) 50 mg HSZ PRN PO 04/18/17 15:30 05/14/17 20:59 04/19/17 21:56 50 MG Enoxaparin Sodium (Lovenox Inj) 40 mg Q24H SQ 04/18/17 21:00 05/18/17 20:59 04/20/17 21:04 40 MG Potassium Chloride (Shelby Ciel Elix) 40 meq QAM PO 04/20/17 08:00 05/20/17 07:59 04/20/17 11:39 40 MEQ Guaifenesin (Organidin Nr Tab) 200 mg Q4H PRN PO 04/21/17 12:00 05/21/17 11:59 Insulin Glargine (Lantus Solostar Pen) 13 units HS SC 04/21/17 21:00 05/21/17 20:59 Insulin Glargine (Lantus Solostar Pen) 30 units DAILY@0800 SC 04/22/17 08:00 05/22/17 07:59 Objective Vital Signs Date Time Temp Pulse Resp B/P (MAP) Pulse Ox O2 Delivery O2 Flow Rate FiO2 04/21/17 11:33 36.4 97 21 138/82 (100) 98 CPAP 04/21/17 11:14 99 20 96 BiPAP/CPAP 2.0 04/21/17 08:45 Nasal Cannula 3.0 04/21/17 07:25 93 20 93 Nasal Cannula 2.0 04/21/17 07:11 35.8 95 22 133/68 (89) 96 BiPAP 04/21/17 03:30 36.6 93 20 136/84 (101) 95 CPAP 04/21/17 00:05 Nasal Cannula 3.0 04/20/17 23:00 36.4 102 22 146/53 (84) 96 CPAP 04/20/17 20:05 Nasal Cannula 3.0 04/20/17 19:49 102 20 95 Nasal Cannula 3.0 04/20/17 19:26 36.6 109 20 146/75 (98) 94 Nasal Cannula 3.0 04/20/17 16:00 Nasal Cannula 3.0 04/20/17 15:39 36.6 112 22 153/77 (102) 95 CPAP 04/20/17 15:20 94 20 91 Nasal Cannula 2.0 Physical Exam General Appearance: no apparent distress, + obese, + pertinent finding (BiPAP) Eyes: normal inspection, PERRL ENT: hearing grossly normal Neck: supple Respiratory/Chest: no respiratory distress, no accessory muscle use, + decreased breath sounds (throughout), + pertinent finding (coarse breath sounds throughtout ) Cardiovascular: regular rate, rhythm Abdomen: normal bowel sounds, non tender, soft Extremities: no calf tenderness, + swelling (+2 pitting edema to upper/lower bilateral lower extremities ) Neurologic/Psychiatric: alert Skin: normal color, warm/dry, no rash Laboratory Results Last 24 Hours Test 04/20/17 16:50 04/20/17 20:08 04/21/17 05:39 04/21/17 07:45 Bedside Glucose 189 mg/dl 195 mg/dl 136 mg/dl White Blood Count 13.31 K/uL Red Blood Count 3.08 M/uL Hemoglobin 9.6 g/dL Hematocrit 28.0 % Mean Corpuscular Volume 90.9 fL Mean Corpuscular Hemoglobin 31.2 pg Mean Corpuscular Hemoglobin Concent 34.3 g/dl Platelet Count 90 K/uL Mean Platelet Volume 10.0 fL RDW Standard Deviation 44.6 fL RDW Coefficient of Variation 13.5 % Nucleated RBC Absolute Count (auto) 0.02 K/uL Neutrophils % (Manual) 91.2 % Lymphocytes % (Manual) 0.0 % Monocytes % (Manual) 3.5 % Metamyelocytes % 3.5 % Myelocytes % 1.8 % Nucleated Red Blood Cells % 0.1 % Neutrophils # (Manual) 12.14 K/uL Total Absolute Neutrophils 12.14 K/uL Total Absolute Lymphocytes 0.00 K/uL Monocytes # (Manual) 0.47 K/uL Metamyelocytes # 0.47 K/uL Myelocytes # 0.24 K/uL Toxic Granulation 2+ Toxic Vacuolation OCCASIONAL Sodium Level 133 mmol/L Potassium Level 4.3 mmol/L Chloride Level 99 mmol/L Carbon Dioxide Level 28 mmol/L Anion Gap 6.0 mmol/L Blood Urea Nitrogen 53 mg/dl Creatinine 1.27 mg/dl Est Creatinine Clear Calc Drug Dose 66.4 ml/min Estimated GFR () 63.6 Estimated GFR (Non- 54.9 BUN/Creatinine Ratio 41.9 Random Glucose 131 mg/dl Calcium Level 7.5 mg/dl Test 04/21/17 11:39 Bedside Glucose 119 mg/dl Assessment and Plan 76-year-old male here with neutropenic fever and pancytopenia from chemotherapy that was to treat a 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 that was diagnosed in the last few weeks patient has underlying COPD and sleep apnea requiring nocturnal BiPAP he has moderate protein malnutrition and likely peripheral edema because of the same Neutropenic fevers- RESOLVED: - Treated w/ Neupogen - Neutropenic precautions - IV Zosyn prophylactically- no source of infection, d/c'ed - UA negative; BCx negative; sputum culture negative; C.diff negative - Hematology/oncology consulted- holding chemo/radiation, f/u outpatient Pancytopenia, secondary to chemotherapy- RESOLVED Small cell lung cancer: Hematology/oncology following, will discuss further treatment options once acute illness resolved Palliative care: - Patient unsure of goals of care - Oncology believes poor condition is due to underlying lung disease and not the cancer - Consider pulmonary consultation COPD: - O2 protocol - BiPAP HS - Continue Prednisone taper - Continue Symbicort, Spiriva, DuoNebs QID and PRN Bilateral UE swelling: - UE US neg for DVT - ECHO 03/29/17- very limited, patient could not tolerate lying flat due to SOB - Bumex 2 mg IV- day #3 [place] on CKD stage III- RESOLVED: Treating w/ IV Bumex- continue to follow PRP Hypokalemia- RESOLVED: Continue KCL supplement Diarrhea- RESOLVED: C. diff negative CAD, HLD: Continue Aspirin, Lipitor, Norvasc T2DM w/ hypoglycemia: - Lantus 30 u QAM and 13 u HS - BSG ACHS and ISS Insomnia: Vistaril HS DVT prophylaxis: Lovenox SQ Code status: LEVEL I, FULL Dispo: Discharge uncertain at this time- PT/OT and CM consulted
--- NOTE | 2017-04-21 17:08 | Hematology/Oncology Prog Note ---
Hematology/Onc Progress Note Date of Service Apr 21, 2017. Diagnoses Small cell lung cancer Shortness of breath Pancytopenia Medications Medications Administered Medications (Trade) Dose Ordered Sig/Michel Route Start Time Stop Time Status Last Admin Dose Admin Sodium Chloride 1,000 ml @ 999 mls/hr Q1H1M STAT IV 04/14/17 17:53 04/14/17 18:53 DC 04/14/17 17:53 999 MLS/HR Cefepime HCl 2000 mg/Dextrose 122 ml @ 200 mls/hr NOW STAT IV 04/14/17 19:10 04/14/17 19:46 DC 04/14/17 19:35 200 MLS/HR Ondansetron HCl (Zofran Inj) 4 mg NOW STAT IV 04/14/17 19:34 04/14/17 19:35 DC 04/14/17 19:39 4 MG Levofloxacin (Levaquin / D5W) 750 mg NOW STAT IV 04/14/17 19:35 04/14/17 19:37 DC 04/14/17 19:53 750 MG Ondansetron HCl (Zofran Inj) 4 mg Q6H PRN IV 04/14/17 21:00 05/14/17 20:59 04/20/17 08:09 4 MG Insulin Aspart (novoLOG ASPART) SLIDING SCALE If C... ACHS SC 04/14/17 21:00 05/14/17 20:59 04/21/17 08:56 10 UNITS Albuterol (Ventolin Hfa Inhaler) 2 puffs Q4H INH 04/15/17 00:00 04/16/17 13:55 DC 04/16/17 11:48 2 PUFFS Allopurinol (Zyloprim Tab) 200 mg DAILY PO 04/15/17 08:00 04/15/17 16:40 DC 04/15/17 07:49 200 MG Amlodipine Besylate (Norvasc Tab) 5 mg QAM PO 04/15/17 08:00 05/15/17 08:59 04/21/17 08:43 5 MG Aspirin (Ecotrin Tab) 81 mg DAILY PO 04/15/17 08:00 05/15/17 08:59 04/21/17 08:44 81 MG Atorvastatin Calcium (Lipitor Tab) 40 mg DAILY PO 3/7/18 08:00 05/15/17 08:59 04/21/17 08:49 40 MG Budesonide/ Formoterol Fumarate (Symbicort 160/ 4.5 Inh) 2 puffs BID INH 04/15/17 08:00 05/15/17 07:59 04/21/17 08:50 2 PUFFS Furosemide (Lasix Tab) 20 mg DAILY PO 04/15/17 08:00 05/15/17 08:59 Future Hold 04/18/17 07:40 20 MG Hydroxyzine HCl (Vistaril Tab) 25 mg HSZ PRN PO 04/14/17 21:00 04/18/17 15:17 DC 04/17/17 20:57 25 MG Tiotropium [place] (Spiriva Handihaler Inhaler) 1 puff QAM INH 04/15/17 08:00 05/15/17 08:59 04/21/17 08:50 1 PUFF Vancomycin HCl 2750 mg/Sodium Chloride 555 ml @ 200 mls/hr NOW ONCE IV 04/14/17 23:00 04/15/17 01:46 DC 04/14/17 22:58 200 MLS/HR Piperacillin Sod/ Tazobactam Sod 4.5 gm/Dextrose 120 ml @ 30 mls/hr Q8H IV 04/15/17 04:00 04/17/17 12:43 DC 04/17/17 12:04 30 MLS/HR Vancomycin HCl (Vancomycin Oral Soln) 250 mg QID PO 04/14/17 23:00 04/15/17 06:20 DC 04/14/17 23:04 250 MG Albuterol/ Ipratropium (Duoneb) 3 ml QIDR INH 04/15/17 08:00 05/15/17 07:59 04/21/17 15:22 3 ML Guaifenesin (Organidin Nr Tab) 200 mg Q4H PO 04/15/17 00:00 04/21/17 11:58 DC 04/21/17 08:44 200 MG Methylprednisolone Sodium Succinate 60 mg/Syringe 0.96 ml @ 1.5 mls/min Q8H IV 04/15/17 00:00 04/16/17 11:15 DC 04/16/17 07:49 1.5 MLS/MIN Magnesium Sulfate 1 gm/Prmx 100 ml @ 100 mls/hr TODAY@0000,2300 IV 04/14/17 23:00 04/15/17 00:59 DC 04/15/17 02:17 100 MLS/HR Piperacillin Sod/ Tazobactam Sod 4.5 gm/Dextrose 120 ml @ 200 mls/hr NOW ONCE IV 04/14/17 22:30 04/14/17 23:05 DC 04/14/17 22:57 200 MLS/HR Insulin Glargine (Lantus Solostar Pen) 12 units BID SC 04/14/17 21:00 04/15/17 14:40 DC 04/15/17 08:03 12 UNITS Raspberry (Raspberry Syrup 5ml Cup) 5 ml QID PO 04/14/17 23:00 04/15/17 06:20 DC 04/14/17 23:04 5 ML Heparin Sodium (Porcine) (Heparin 100 Unit/ml 5ml Flush) 5 ml PRN PRN IV 04/15/17 04:00 05/15/17 03:59 04/21/17 05:37 5 ML Filgrastim (Neupogen Sq) 480 mcg DAILY SC 04/15/17 14:00 04/18/17 08:13 DC 04/17/17 10:10 480 MCG Insulin Glargine (Lantus Solostar Pen) 40 units BID SC 04/15/17 20:00 04/17/17 10:49 DC 04/17/17 08:59 40 UNITS Enteral Nutritional Formula (Boost Glucose Control) 1 can BID PO 04/15/17 20:00 05/15/17 19:59 04/20/17 21:01 1 CAN Potassium Chloride (Klor-Con Tab) 40 meq BID PO 04/16/17 20:00 04/19/17 14:15 DC 04/17/17 08:39 40 MEQ Potassium Chloride (Klor-Con Tab) 40 meq 0930 ONCE PO 04/16/17 09:30 04/16/17 09:31 DC 04/16/17 11:48 40 MEQ Furosemide 20 mg/ Syringe 2 ml @ 4 mls/min ONE ONCE IV 04/16/17 09:30 04/16/17 09:31 DC 04/16/17 11:47 4 MLS/MIN Prednisone (PredniSONE TAB) 50 mg Taper DAILY PO 04/17/17 08:00 05/04/17 07:59 04/21/17 08:44 50 MG Prednisone (PredniSONE TAB) 60 mg NOW ONCE PO 04/16/17 12:00 04/16/17 12:01 DC 04/16/17 12:05 60 MG Albuterol (Ventolin Hfa Inhaler) 2 puffs Q4H PRN INH 04/16/17 14:00 05/15/17 00:00 04/20/17 08:17 2 PUFFS Insulin Glargine (Lantus Solostar Pen) 40 units DAILY@0800 SC 04/18/17 08:00 04/20/17 15:47 DC 04/20/17 08:25 40 UNITS Insulin Glargine (Lantus Solostar Pen) 20 units HS SC 04/17/17 21:00 04/20/17 15:47 DC 04/19/17 20:49 20 UNITS Furosemide 20 mg/ Syringe 2 ml @ 4 mls/min ONE ONCE IV 04/17/17 17:15 04/17/17 17:16 DC 04/17/17 17:46 4 MLS/MIN Sodium Chloride ([place] Nasal [place]) 225 sprays STK-MED ONCE .ROUTE 04/17/17 20:59 04/17/17 21:00 DC 04/17/17 21:09 225 SPRAYS Furosemide 40 mg/ Syringe 4 ml @ 4 mls/min TODAY@0830 ONCE IV 04/18/17 08:30 04/18/17 08:31 DC 04/18/17 09:12 4 MLS/MIN Hydroxyzine HCl (Vistaril Tab) 50 mg HSZ PRN PO 04/18/17 15:30 05/14/17 20:59 04/19/17 21:56 50 MG Enoxaparin Sodium (Lovenox Inj) 40 mg Q24H SQ 04/18/17 21:00 05/18/17 20:59 04/20/17 21:04 40 MG Potassium Chloride ([place]) 40 meq QAM PO 04/20/17 08:00 05/20/17 07:59 04/20/17 11:39 40 MEQ Bumetanide 2 mg/ Syringe 8 ml @ 4 mls/min TODAY@1430 ONCE IV 04/19/17 14:30 04/19/17 14:31 DC 04/19/17 14:37 4 MLS/MIN Trazodone HCl (Desyrel Tab) 25 mg 0315 ONCE PO 04/20/17 03:15 04/20/17 03:19 DC 04/20/17 03:24 25 MG Bumetanide 2 mg/ Syringe 8 ml @ 4 mls/min 1345 ONCE IV 04/20/17 13:45 04/20/17 13:46 DC 04/20/17 14:37 4 MLS/MIN Insulin Glargine (Lantus Solostar Pen) 16 units HS SC 04/20/17 21:00 04/21/17 12:01 DC 04/20/17 21:04 16 UNITS Insulin Glargine (Lantus Solostar Pen) 36 units DAILY@0800 SC 04/21/17 08:00 04/21/17 12:03 DC 04/21/17 08:57 36 UNITS Bumetanide 2 mg/ Syringe 8 ml @ 4 mls/min ONE ONCE IV 04/21/17 14:00 04/21/17 14:01 DC 04/21/17 14:29 4 MLS/MIN Subjective Mr. Jordan continues to struggle to breathe, though he denies severe SOB. He is also profoundly weak and tired. He denies any pain, nausea, vomiting, vision changes, or bleeding. Review of Systems: Constitutional: + weakness, + fatigue, No fever Eyes: No worsening of vision Respiratory: + shortness of breath Cardiovascular: No chest pain Abdomen: No pain Musculoskeletal: No joint pain, No muscle pain Neurologic: + weakness (generalized) Heme: No abnormal bleeding/bruising, No swollen lymph nodes Vital Signs Vital Signs Past 12 Hours Date Time Temp Pulse Resp B/P (MAP) Pulse Ox O2 Delivery O2 Flow Rate FiO2 04/21/17 15:22 103 20 95 Nasal Cannula 3.0 04/21/17 15:19 36.5 110 24 128/69 (88) 90 Nasal Cannula 2.0 04/21/17 14:48 91 04/21/17 11:33 36.4 97 21 138/82 (100) 98 CPAP 04/21/17 11:14 99 20 96 BiPAP/CPAP 2.0 04/21/17 08:45 Nasal Cannula 3.0 04/21/17 07:25 93 20 93 Nasal Cannula 2.0 04/21/17 07:11 35.8 95 22 133/68 (89) 96 BiPAP Physical Exam Constitutional: General Apperance: obese Level of Distress: mild distress Psychiatric: Mental Status: active & alert Orientation: oriented except where noted Lungs: Respiratory Effort: tachypneic, use of accessory muscles Auscuitation: breath sounds normal Cardiovascular: Heart Auscultation: RRR Abdomen: Inspection & Palpation: soft, no tenderness, guarding & rebound Extremities: pertinent finding (stable chronic venous stasis changes) Laboratory Last 24 Hours Test 04/20/17 20:08 04/21/17 05:39 04/21/17 07:45 04/21/17 11:39 Bedside Glucose 195 mg/dl 136 mg/dl 119 mg/dl White Blood Count 13.31 K/uL Red Blood Count 3.08 M/uL Hemoglobin 9.6 g/dL Hematocrit 28.0 % Mean Corpuscular Volume 90.9 fL Mean Corpuscular Hemoglobin 31.2 pg Mean Corpuscular Hemoglobin Concent 34.3 g/dl Platelet Count 90 K/uL Mean Platelet Volume 10.0 fL RDW Standard Deviation 44.6 fL RDW Coefficient of Variation 13.5 % Nucleated RBC Absolute Count (auto) 0.02 K/uL Neutrophils % (Manual) 91.2 % Lymphocytes % (Manual) 0.0 % Monocytes % (Manual) 3.5 % Metamyelocytes % 3.5 % Myelocytes % 1.8 % Nucleated Red Blood Cells % 0.1 % Neutrophils # (Manual) 12.14 K/uL Total Absolute Neutrophils 12.14 K/uL Total Absolute Lymphocytes 0.00 K/uL Monocytes # (Manual) 0.47 K/uL Metamyelocytes # 0.47 K/uL Myelocytes # 0.24 K/uL Toxic Granulation 2+ Toxic Vacuolation OCCASIONAL Sodium Level 133 mmol/L Potassium Level 4.3 mmol/L Chloride Level 99 mmol/L Carbon Dioxide Level 28 mmol/L Anion Gap 6.0 mmol/L Blood Urea Nitrogen 53 mg/dl Creatinine 1.27 mg/dl Est Creatinine Clear Calc Drug Dose 66.4 ml/min Estimated GFR () 63.6 Estimated GFR (Non- 54.9 BUN/Creatinine Ratio 41.9 Random Glucose 131 mg/dl Calcium Level 7.5 mg/dl Test 04/21/17 16:31 Bedside Glucose 204 mg/dl Assessment & Plan Mr. Jordan has small cell lung cancer with a mediastinal mass that appeared to be impacting his breathing. We started concurrent chemotherapy and radiation 2 weeks ago, but his treatment is currently on hold due to prolonged recovery of his counts. He has also been more or less continuously hospitalized due to difficulty breathing. I am beginning to doubt that his respiratory issues will improve with treatment of his cancer. His masses were not especially large and were not, at least bronchoscopically, compressing his airway. His struggle to breathe appears to be more related to his body habitus and COPD. His generalized weakness may be more due to overall deconditioning, due to his prolonged hospitalization and multiple medical issues. He does not appear to be improving and indeed seems to be declining. I am skeptical that additional treatment for his cancer will meaningfully improve his overall performance status. I see that palliative care have been consulted and I think a kim discussion of his goals of care is in order. A CT of his chest might be helpful in this regard, to see if his mediastinal disease responded at all to treatment. If it did, this would be further confirmation that his symptoms are not cancer-related and are unlikely to improve with further chemotherapy and RT.
[2017-04-21] MEDS: ONDANSETRON INJ 2 MG/ML 2 ML VIAL IV PRN ×2 (17:16→22:18)
[2017-04-21] MEDS: ENOXAPARIN 40 MG/0.4 ML SYR SQ SCH (20:54)
[2017-04-21] MEDS: INSULIN GLARGINE SOLOSTAR 100 UNITS/ML 3 ML PEN SC SCH (20:56)
[2017-04-21] MEDS: hydrOXYzine HCL 25 MG TAB PO PRN (21:50)
[2017-04-21] MEDS: ACETAMINOPHEN 325 MG TAB PO PRN (21:51)
[2017-04-22] VITALS (9 sets, daily range): BP systolic 115–137; BP diastolic 62–71; PULSE 92–114; TEMP 36.4–36.6; O2SAT 93–96
[2017-04-22 05:58] LABS: HEMATOCRIT 26.6 % (42-52); HEMOGLOBIN 9.2 g/dL (14.0-18.0); MEAN CELL VOLUME 90.2 fL (80-100); MEAN CORPUSCULAR HEMOGLOBIN 31.2 pg (25-34); MEAN CORPUSCULAR HGB CONC 34.6 g/dl (32-36); MEAN PLATELET VOLUME 9.9 fL (7.4-10.4); PLATELET COUNT 106 K/uL (130-400); RED CELL DISTRIBUTION WIDTH CV 13.6 % (11.5-14.5); RED CELL DISTRIBUTION WIDTH SD 44.9 fL (36.4-46.3); WHITE BLOOD COUNT 15.12 K/uL (4.8-10.8)
[2017-04-22 06:28] LABS: CALCIUM 7.6 mg/dl (8.5-10.1); CREATININE 1.39 mg/dl (0.60-1.40); POTASSIUM 4.3 mmol/L (3.5-5.1)
[2017-04-22] MEDS: ALBUT/IPRATROP 3MG/0.5MG NEB 3 ML VIAL INH SCH ×4 (07:03→18:46)
[2017-04-22] MEDS: BOOST GLUCOSE CONTROL PO SCH ×2 (08:31→19:39)
[2017-04-22] MEDS: AMLODIPINE BESYLATE 5 MG TAB PO SCH (08:31)
[2017-04-22] MEDS: BUDESONIDE/FORMOTEROL FUMARATE 160/4.5 60 PUFFS/INHALER INH SCH ×2 (08:31→19:39)
[2017-04-22] MEDS: TIOTROPIUM BROMIDE 5 PUFF/90 MCG INH INH SCH (08:31)
[2017-04-22] MEDS: POTASSIUM CHLORIDE 20 MEQ/15 ML UDC PO SCH (08:32)
[2017-04-22] MEDS: ASPIRIN 81 MG ECTAB PO SCH (08:32)
[2017-04-22] MEDS: ATORVASTATIN 20 MG TAB PO SCH (08:32)
[2017-04-22] MEDS: INSULIN ASPART 100 UNITS/ML 3 ML PEN SC SCH ×4 (08:39→21:23)
[2017-04-22] MEDS: INSULIN GLARGINE SOLOSTAR 100 UNITS/ML 3 ML PEN SC SCH ×2 (08:39→21:21)
[2017-04-22] MEDS ORDERED: OPTIRAY 320 IV PRN (09:00)
--- NOTE | 2017-04-22 10:32 | DIAGNOSTIC IMAGING REPORT ---
CHEST CT WITH CONTRAST CT DOSE: 1150.52 mGy.cm HISTORY: Short of breath, evaluate chest mass/COPD TECHNIQUE: Multiaxial CT images of the chest were performed following the intravenous administration of contrast. A dose lowering technique was utilized adhering to the principles of ALARA. COMPARISON: Chest CT 03/28/2017. FINDINGS: There is no supraclavicular or axillary lymphadenopathy. Scattered punctate calcified granuloma seen within the liver and spleen. No hepatic or adrenal masses. Nodular contour to the liver consistent with cirrhosis. The heart is normal in size. Left subclavian Port-A-Cath terminates in the superior cavoatrial junction. Moderate calcified plaque within the normal caliber aortic arch. Calcified mediastinal lymph nodes are again noted. The main pulmonary arteries are patent. Trace right pleural effusion has decreased in size. No pericardial effusion. Significant decrease in size in the right peritracheal lymphadenopathy. This currently measures approximately 4.6 x 2.5 cm. This partially encases the right upper lobe pulmonary arteries. No left hilar lymphadenopathy. No pneumothorax. The central airways are patent. Significant decrease in size in the right upper lobe mass which currently measures 2.7 x 1.5 cm. Calcified granuloma seen within the left lower lobe. Interval development multiple scattered irregular and nodular groundglass opacities seen throughout the lungs. Stable 4 mm nodule within the right lower lobe in image 202. Decrease in size in the superior mediastinal lymph nodes with the dominant left superior mediastinal lymph node measuring 1.7 cm, previously measuring 2.8 cm. IMPRESSION: 1. Interval decrease in size in the right upper lobe mass and mediastinal lymphadenopathy as described above. 2. Decrease in size in the trace right pleural effusion. 3. Interval development of multiple scattered small groundglass nodular and irregular opacities seen throughout the lungs. This favors an atypical infectious process. Follow up is recommended to ensure resolution. Electronically signed by: Bryce Franz M.D. 04/22/2017 10:30 AM Dictated Date/Time: 04/22/2017 10:21 AM
[2017-04-22] MEDS ORDERED: NURSING VERBAL MED ORDER ONE (10:45)
[2017-04-22] MEDS ORDERED: VANCOMYCIN CONSULT ACTIVE PRN (11:15)
[2017-04-22] MEDS ORDERED: VANCOMYCIN IV 2,750 MG in SODIUM CHLORIDE 0.9% 500ML 500 ML IV ONE (11:45)
[2017-04-22] MEDS ORDERED: PIPERACILL/TAZOBAC CONSULT ACTIVE PRN (11:45)
[2017-04-22] MEDS ORDERED: PIPERACILL/TAZOBAC IV 4.5 GM in DEXTROSE 5% 100ML IV ONE (12:00)
--- NOTE | 2017-04-22 12:09 | Pharmacy Progress Note ---
Pharmacy Abx Initial Consult Date of Service Apr 22, 2017. Pharmacy Dosing Scope Date of Consult: 04/22/17 Consultation requested by: Dr. Vidal Pharmacy is consulted to initiate Vancomycin + Zosyn IV dosing therapy, order appropriate labs and adjust drug dose/frequency. Subjective The patient is a 76 year old male admitted on Apr 14, 2017 at 21:08. Objective Height (Feet): 5 Height (Inches): 8.00 Weight (Kilograms): 130.000 Vital Signs (Past 12Hrs) Vital Signs Past 12 Hours Date Time Temp Pulse Resp B/P (MAP) Pulse Ox O2 Delivery O2 Flow Rate FiO2 04/22/17 11:14 103 22 93 Nasal Cannula 3.0 04/22/17 10:56 36.5 103 22 137/69 (91) 93 04/22/17 10:30 Nasal Cannula 3.0 04/22/17 07:19 36.4 103 24 129/71 (90) 96 04/22/17 07:03 106 24 94 Nasal Cannula 3.0 04/22/17 04:11 36.5 92 24 124/62 (82) 94 CPAP 04/22/17 00:05 Nasal Cannula 3.0 Lab Results (24Hrs) Laboratory Tests (24 Hours) Test 04/22/17 05:39 White Blood Count 15.12 K/uL (4.8-10.8) H Red Blood Count 2.95 M/uL (4.7-6.1) L Hemoglobin 9.2 g/dL (14.0-18.0) L Hematocrit 26.6 % (42-52) L Mean Corpuscular Volume 90.2 fL (80-100) Mean Corpuscular Hemoglobin 31.2 pg (25-34) Mean Corpuscular Hemoglobin Concent 34.6 g/dl (32-36) Platelet Count 106 K/uL (130-400) L Mean Platelet Volume 9.9 fL (7.4-10.4) Micro Results Date/Time Source Procedure Growth Status 04/14/17 19:45 Blood Blood Culture - Final NO GROWTH Complete 04/14/17 18:45 Blood Blood Culture - Final NO GROWTH Complete 04/14/17 22:40 Stool C.difficile Toxin B Gene (PCR) - Final No C. difficile toxin B gene detected Complete 04/14/17 22:30 Sputum Expectorated Sputum Gram Stain - Final Complete 04/14/17 22:30 Sputum Expectorated Sputum Sputum Culture - Final MODERATE NORMAL KRAIG. Complete Risk Factors for Resistance * Hospitalization for 48 hours or more within the past 90 days * Current hospitalization > 5 days * Immunocompromised (chronic steroid therapy, chemotherapy, immunomodulators) * Antimicrobial use within the last 90 days Assessment & Plan Assessment 76 year old male with pulmonary process {atypical pneumonia} and risk factors for MDRO. Plan Vancomycin + Levaquin for treatment of pulmonary process Vancomycin IV * Loading dose: 2,750 mg (21 mg/kg) * Maintenance dose: 1,50 mg IV (11 mg/kg) every 18 hours * Goal trough level for pulmonary : 15 to 20 mcg/mL * Trough/Random level ordered for 04/24/17 this will not be steady state * A less than traditional dose and/or extended dosing interval has/have been selected due to likelihood of drug accumulation in obese patient/patient with h/ o CKD. Levaquin * 750mg IV Q24hrs for PNA and CrCl >50 ml/min Pharmacy will continue to follow and will adjust dose/frequency as necessary. Thank you.
--- NOTE | 2017-04-22 14:56 | Hospitalist Progress Note ---
Hospitalist Progress Note Date of Service Apr 22, 2017. Subjective Pt evaluation today including: conversation w/ patient, physical exam, lab review, review of studies, review of inpatient medication list Voiding: no voiding problems Patient resting in bed. On O2 supplement. More alert today. Discussed CT findings and adding abx treatment. Denied any concerns/questions. Asked about goals of care- stated, "I don't know, talk to my daughter." Breathing unchanged today. Denied radiation therapy. Patient denies any fever, chills, sweats, lightheadedness, dizziness, vision changes, CP, palpitations, edema, SOB, wheezing, cough, abdominal pain, nausea, vomiting, diarrhea, urinary symptoms, melena, numbness/tingling, weakness, muscle/joint pain, anxiety/depression, active bleeding, or new skin discoloration/changes. Meeting with patient/daughter- DNR, but still want treatment with goal of getting home. Patient/daughter agreeable to rehab at discharge if needed. Medications Current Inpatient Medications Medications (Trade) Dose Ordered Sig/Michel Route Start Time Stop Time Status Last Admin Dose Admin Acetaminophen (Tylenol Tab) 650 mg Q4H PRN PO 04/14/17 21:00 05/14/17 20:59 04/21/17 21:51 650 MG Magnesium Hydroxide (Milk Of Magnesia Susp) 30 ml Q6H PRN PO 04/14/17 21:00 05/14/17 20:59 Polyethylene (Miralax Powder Packet) 17 gm DAILY PRN PO 04/14/17 21:00 05/14/17 20:59 Ondansetron HCl (Zofran Inj) 4 mg Q6H PRN IV 04/14/17 21:00 05/14/17 20:59 04/21/17 22:18 4 MG Insulin Aspart (novoLOG ASPART) SLIDING SCALE If C... ACHS SC 04/14/17 21:00 05/14/17 20:59 04/22/17 13:40 8 UNITS Glucose (Glucose 40% Gel) 15-30 GRAMS 15 GRAMS... UD PRN PO 04/14/17 21:00 05/14/17 20:59 Glucose (Glucose Chew Tab) 4-8 Tablets 4 Tabl... UD PRN PO 04/14/17 21:00 05/14/17 20:59 Dextrose (Dextrose 50% 50ML Syringe) 25-50ML OF 50% DW IV FOR... UD PRN IV 04/14/17 21:00 05/14/17 20:59 Glucagon (Glucagon Inj) 1 mg UD PRN SQ 04/14/17 21:00 05/14/17 20:59 Amlodipine Besylate (Norvasc Tab) 5 mg QAM PO 04/15/17 08:00 05/15/17 08:59 04/22/17 08:31 5 MG Aspirin (Ecotrin Tab) 81 mg DAILY PO 04/15/17 08:00 05/15/17 08:59 04/22/17 08:32 81 MG Atorvastatin Calcium (Lipitor Tab) 40 mg DAILY PO 04/15/17 08:00 05/15/17 08:59 04/22/17 08:32 40 MG Budesonide/ Formoterol Fumarate (Symbicort 160/ 4.5 Inh) 2 puffs BID INH 04/15/17 08:00 05/15/17 07:59 04/22/17 08:31 2 PUFFS Furosemide (Lasix Tab) 20 mg DAILY PO 04/15/17 08:00 05/15/17 08:59 Future Hold 04/18/17 07:40 20 MG Tiotropium Reeves (Spiriva Handihaler Inhaler) 1 puff QAM INH 04/15/17 08:00 05/15/17 08:59 04/22/17 08:31 1 PUFF Albuterol/ Ipratropium (Duoneb) 3 ml QIDR INH 04/15/17 08:00 05/15/17 07:59 04/22/17 11:13 3 ML Heparin Sodium (Porcine) (Heparin 100 Unit/ml 5ml Flush) 5 ml PRN PRN IV 04/15/17 04:00 05/15/17 03:59 04/21/17 22:19 5 ML Enteral Nutritional Formula (Boost Glucose Control) 1 can BID PO 04/15/17 20:00 05/15/17 19:59 04/20/17 21:01 1 CAN Prednisone (PredniSONE TAB) 40 mg Taper DAILY PO 04/17/17 08:00 05/04/17 07:59 04/22/17 08:32 40 MG Albuterol (Ventolin Hfa Inhaler) 2 puffs Q4H PRN INH 04/16/17 14:00 05/15/17 00:00 04/20/17 08:17 2 PUFFS Lidocaine HCl/ Diphenhydramine HCl/Al Hydroxide/ Mg Hydroxide/ Glycerin/Barcode Q4H PRN MT 04/18/17 10:15 05/18/17 10:14 Hydroxyzine HCl (Vistaril Tab) 50 mg HSZ PRN PO 04/18/17 15:30 05/14/17 20:59 04/21/17 21:50 50 MG Enoxaparin Sodium (Lovenox Inj) 40 mg Q24H SQ 04/18/17 21:00 05/18/17 20:59 04/21/17 20:54 40 MG Potassium Chloride (Shelby Ciel Elix) 40 meq QAM PO 04/20/17 08:00 05/20/17 07:59 04/20/17 11:39 40 MEQ Guaifenesin (Organidin Nr Tab) 200 mg Q4H PRN PO 04/21/17 12:00 05/21/17 11:59 Insulin Glargine (Lantus Solostar Pen) 13 units HS SC 04/21/17 21:00 05/21/17 20:59 04/21/17 20:56 13 UNITS Insulin Glargine (Lantus Solostar Pen) 30 units DAILY@0800 SC 04/22/17 08:00 05/22/17 07:59 04/22/17 08:39 30 UNITS Ioversol (Optiray 320) 100 ml UD PRN IV 04/22/17 09:00 04/26/17 08:59 Miscellaneous Information (Consult) 1 ea UD PRN N/A 04/22/17 11:15 05/22/17 11:14 Vancomycin HCl 1500 mg/Sodium Chloride 530 ml @ 200 mls/hr Q18H IV 04/23/17 06:00 04/30/17 05:59 Levofloxacin 750 mg/Prmx 150 ml @ 100 mls/hr Q24H IV 04/22/17 13:00 04/29/17 12:59 Objective Vital Signs Date Time Temp Pulse Resp B/P (MAP) Pulse Ox O2 Delivery O2 Flow Rate FiO2 04/22/17 11:14 103 22 93 Nasal Cannula 3.0 04/22/17 10:56 36.5 103 22 137/69 (91) 93 04/22/17 10:30 Nasal Cannula 3.0 04/22/17 07:19 36.4 103 24 129/71 (90) 96 04/22/17 07:03 106 24 94 Nasal Cannula 3.0 04/22/17 04:11 36.5 92 24 124/62 (82) 94 CPAP 04/22/17 00:05 Nasal Cannula 3.0 04/21/17 23:18 36.5 99 24 150/69 (96) 94 CPAP 04/21/17 19:26 105 20 96 Nasal Cannula 3.0 04/21/17 19:22 36.6 110 24 111/64 (80) 92 CPAP 3.5 04/21/17 16:00 95 Nasal Cannula 3.0 21 04/21/17 15:22 103 20 95 Nasal Cannula 3.0 04/21/17 15:19 36.5 110 24 128/69 (88) 90 Nasal Cannula 2.0 Physical Exam General Appearance: no apparent distress, + obese, + pertinent finding (O2 NC) Eyes: normal inspection, PERRL ENT: hearing grossly normal Neck: supple Respiratory/Chest: no respiratory distress, no accessory muscle use, + decreased breath sounds (throughout ), + pertinent finding (coarse breath sounds throughout ) Cardiovascular: regular rate, rhythm Abdomen: normal bowel sounds, non tender, soft Extremities: no calf tenderness, + swelling (+2 pitting edema to bilateral upper/lower extremities ) Neurologic/Psychiatric: alert, oriented x 3, + depressed affect Skin: normal color, warm/dry, no rash Laboratory Results Last 24 Hours Test 04/21/17 16:31 04/21/17 20:19 04/22/17 05:39 04/22/17 07:25 Bedside Glucose 204 mg/dl 229 mg/dl 180 mg/dl White Blood Count 15.12 K/uL Red Blood Count 2.95 M/uL Hemoglobin 9.2 g/dL Hematocrit 26.6 % Mean Corpuscular Volume 90.2 fL Mean Corpuscular Hemoglobin 31.2 pg Mean Corpuscular Hemoglobin Concent 34.6 g/dl Platelet Count 106 K/uL Mean Platelet Volume 9.9 fL RDW Standard Deviation 44.9 fL RDW Coefficient of Variation 13.6 % Neutrophils % (Manual) 92.9 % Lymphocytes % (Manual) 0.0 % Monocytes % (Manual) 0.9 % Metamyelocytes % 3.5 % Myelocytes % 2.7 % Neutrophils # (Manual) 14.05 K/uL Total Absolute Neutrophils 14.05 K/uL Total Absolute Lymphocytes 0.00 K/uL Monocytes # (Manual) 0.14 K/uL Metamyelocytes # 0.53 K/uL Myelocytes # 0.41 K/uL Toxic Granulation 1+ Dohle Bodies 1+ Sodium Level 133 mmol/L Potassium Level 4.3 mmol/L Chloride Level 98 mmol/L Carbon Dioxide Level 30 mmol/L Anion Gap 6.0 mmol/L Blood Urea Nitrogen 51 mg/dl Creatinine 1.39 mg/dl Est Creatinine Clear Calc Drug Dose 60.4 ml/min Estimated GFR () 57.1 Estimated GFR (Non- 49.2 BUN/Creatinine Ratio 36.5 Random Glucose 155 mg/dl Calcium Level 7.6 mg/dl Test 04/22/17 11:12 Bedside Glucose 137 mg/dl Assessment and Plan 76-year-old male here with neutropenic fever and pancytopenia from chemotherapy that was to treat a 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 Atypical infectious process on CT 04/22: - Started on Vancomycin + Levaquin - Sputum culture pending - Continue O2 protocol, DuoNebs, home inhalers, Mucinex PRN - Continue Prednisone taper - Leukocytosis- follow CBC - Encourage patient OOB in chair - Consult pulmonary, appreciate recommendations Neutropenic fevers- RESOLVED: - Treated w/ Neupogen - Neutropenic precautions - IV Zosyn prophylactically- no source of infection, d/c'ed - UA negative; BCx negative; sputum culture negative; C.diff negative - Hematology/oncology consulted- holding chemo/radiation, f/u outpatient Pancytopenia, secondary to chemotherapy- RESOLVED Small cell lung cancer: - Hematology/oncology following, will discuss further treatment options once acute illness resolved - Decrease size of mass on CT today Palliative care: - Patient unsure of goals of care - Oncology believes poor condition is due to underlying lung disease and not the cancer - Meeting with patient/daughter- DNR, but still want treatment with goal of getting home. Patient/daughter agreeable to rehab at discharge if needed. 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 diff negative CAD, HLD: Continue Aspirin, Lipitor, Norvasc T2DM w/ hypoglycemia: - Lantus 30 u QAM and 13 u HS - BSG ACHS and ISS Insomnia: Vistaril HS DVT prophylaxis: Lovenox SQ Code status: LEVEL V, DNR Dispo: Discharge uncertain at this time- PT/OT and CM consulted
[2017-04-22] MEDS: LEVOFLOXACIN 750MG / D5W IV SCH (15:15)
[2017-04-22] MEDS ORDERED: MAGIC MOUTHWASH PO SCH (15:30)
[2017-04-22] MEDS ORDERED: PIPERACILL/TAZOBAC IV 4.5 GM in DEXTROSE 5% 100ML IV SCH (18:00)
[2017-04-22] MEDS: DEXAMETHASONE CONC SOLN 3.75 MG, NYSTATIN SUSP 30 ML, DiphenhydrAMINE HCL SYRUP 300 MG,... PO SCH ×5 (18:21)
[2017-04-22] MEDS: ONDANSETRON INJ 2 MG/ML 2 ML VIAL IV PRN (19:37)
--- NOTE | 2017-04-22 19:50 | Pulmonary Consultation ---
History General Date of Service: Apr 22, 2017. Stated Complaint: Neutropenic Fever, Small Cell Lung Cancer HPI The patient is a 76 year old male who presents to [facility] with complaints of Neutropenic Fever, Small Cell Lung Cancer. The patient's primary care provider is Anil Valdez M.D.. 76-year-old male admitted on 04/14/2017 secondary to diarrhea and failure to thrive. Patient has a past medical history significant for tobacco use disorder greater than [id number] history, neuropathy, COPD with an FEV1 of 65% , small cell lung cancer, diabetes, hypertension, hyperlipidemia and morbid obesity. Patient did note progressive fever, fatigue and weakness for 24 hours prior to admission. Patient was admitted to the [facility] on March 29, 2017 to April 13, 2017. At that time he was notably high hypoxic requiring 3 L nasal cannula and noted to have a large right apical mass with associated lymphadenopathy. Patient underwent an Dorcas's bronchoscopy by Dr. Abdirahman Amado on 03/30/2017 to station 4R consistent with metastatic small cell carcinoma. He was treated with carboplatin and irinotecan as well as radiation therapy for limited stage non-small cell lung CA. patient's course has been complicated by chronic shortness of breath as well as poor recovery of his blood counts. Due to this palliative care has been consulted for the patient's overall poor prognosis. Pulmonary was consulted secondary to progressive dyspnea on exertion with poor overall response to current interventions. During our conversation the patient does not he continues to be dyspneic at rest and continues to have intermittently active yellow sputum with no change since prior to his current diagnoses but denies: Fever, chills, pleurisy, classic cardiac chest pain, rigors or B type symptoms. Past medical history 1. Diabetes mellitus 2. Diabetic nephropathy 3. 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 Chronic kidney disease stage III 5. Vitamin D deficiency 6. Abdominal aortic aneurysm 7. COPD (FEV1: 65%) PFT--05/23/2010 8. Hypercholesterolemia 9. Heart murmur 10. GERD 11. Erectile dysfunction 12. Carotid stenosis 13. Colonic polyps 14. 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 Anemia 17. History of bilateral cataract 18. Chronic tobacco use Past surgical history 1. Colonoscopy 04/04/2011 2. Bilateral cataract surgery Social history Alcohol: History of abuse Tobacco: Current smoker greater than 50 pack year history Occupation: [employer] Living status: Family history Coronary artery disease Diabetes current medications 1. Vancomycin 2. Magic mouthwash 3. Levofloxacin 750 mg 4. Spiriva 5. DuoNeb's 6. Symbicort 160/4.5 7. Prednisone 40 mg daily Allergies Actos TABS Allergies not assessed Immunizations Influenza --- Series1: 08-Nov-2009; Series2: 29-Nov-2010; Series3: 23-Dec-2012; Series4: 28-Feb-2014; Series5: 05-Feb-2015; Series6: 15-Nov-2015; Series7: 05-Nov-2016 PCV --- Series1: 13-Mar-2015 PPSV --- Series1: 26-Feb-2007 Historian: patient, EMS Review of Systems Constitutional: reports: weakness Eyes: reports: no symptoms ENT: reports: mouth pain Cardiovascular: reports: no symptoms Respiratory: reports: as stated in HPI Gastrointestinal: reports: no symptoms Genitourinary - Male: reports: no symptoms Musculoskeletal: reports: no symptoms Integumentary: reports: no symptoms Neurologic: reports: no symptoms Psychiatric: reports: no symptoms Endocrine: no symptoms Hematologic / Lymphatic: no symptoms Allergic / Immunologic: no symptoms Past Medical History Past Medical History: Please refer to HPI Past Surgical History: Please refer to HPI Family History Please refer to HPI Social History Hx Tobacco Use In Past Year?: Yes Smoking Status: Current Every Day Smoker Marital status: Housing status: lives with family Occupational Status: retired Immunizations History of Influenza Vaccine: Yes History of Tetanus Vaccine?: Yes Tetanus Immunization Date: Feb 22, 2004 History of Pneumococcal: Yes Pneumococcal Date: Feb 21, 2007 History of Hepatitis B Vaccine: No History of MDRO History of MDRO: No Allergies Coded Allergies: No Known Allergies (Verified , 03/28/17) Current Medications Reported Home Medications Medications Dose Route/Sig Max Daily Dose Days Date Category Dose Instructions Prednisone 10 Mg Tab 10 Mg PO DAILY 12 04/13/17 Rx Take 40mgx3 days starting 04/14/17, then [id number], 20mgx3 days, 10mgx3 days then stop Lasix (Furosemide) 20 Mg Tab 1 Tab PO DAILY 30 04/13/17 Rx Oxygen Gas 4 Liters NA CONTINOUS 90 04/13/17 Rx For home and portable use Allopurinol 100 Mg Tab 200 Mg PO DAILY 30 04/12/17 Rx Hydroxyzine HCl 25 Mg Tab 25 Mg PO HSZ PRN 04/12/17 Rx Amlodipine Besylate 5 Mg Tab 5 Mg PO QAM 04/12/17 Rx Ventolin Hfa (Albuterol) 200 Puffs/04431 Mcg Aers 2 Puffs INH Q4H 04/01/17 Rx Spiriva Handihaler (Tiotropium [place]) 5 Puff/90 Mcg Aerp 2 Puff INH QAM 30 04/01/17 Rx Symbicort 160-4.5 Mcg/Act (Budesonide/Formoterol Fumarate) 60 Puffs/Inhaler Aero 2 Puffs INH BID 30 04/01/17 Rx Nicoderm Cq 21MG Patch (Nicotine) 21 Mg/24 Hr Dis 1 Patch TD DAILY 30 04/01/17 Rx Vitamin D3 (Cholecalciferol) 1,000 Unit Tab 1 Tab PO DAILY 03/28/17 Reported Novolin 70/30 (Insulin Human Isoph/Insulin Regular) Inj 95 Units SC BID 03/28/17 Reported Lipitor (Atorvastatin Calcium) 40 Mg Tab 40 Mg PO DAILY 03/28/17 Reported Aspirin Ec (Aspirin) 81 Mg Tab 81 Mg PO DAILY 03/28/17 Reported Physical Physical Exam Vital Signs: Date Time Temp Pulse Resp B/P (MAP) Pulse Ox O2 Delivery O2 Flow Rate FiO2 04/22/17 19:13 36.6 114 24 123/67 (85) 93 Nasal Cannula 3.0 04/22/17 18:47 98 20 93 Nasal Cannula 3.0 04/22/17 16:03 103 26 93 Nasal Cannula 3.0 04/22/17 16:00 Nasal Cannula 04/22/17 11:14 103 22 93 Nasal Cannula 3.0 04/22/17 10:56 36.5 103 22 137/69 (91) 93 04/22/17 10:30 Nasal Cannula 3.0 04/22/17 07:19 36.4 103 24 129/71 (90) 96 04/22/17 07:03 106 24 94 Nasal Cannula 3.0 04/22/17 04:11 36.5 92 24 124/62 (82) 94 CPAP 04/22/17 00:05 Nasal Cannula 3.0 04/21/17 23:18 36.5 99 24 150/69 (96) 94 CPAP General Appearance: moderate distress Head: NORMOCEPHALIC, ATRAUMATIC Eyes: PERRLA, NO DISCHARGE, EOMI, SCLERAE NORMAL, CONJUNCTIVAE NORMAL ENT: other (Dry oropharynx with no associated dental caries) Neck: NORMAL RANGE OF MOTION, NO TENDERNESS, TRACHEA MIDLINE, NO STRIDOR Respiratory: other (Decreased breath sounds globally with minimal rhonchi at the bases) Cardiovasular: other (Tachycardic regular rate) Abdomen: other (Distended with positive bowel sounds soft nontender) Back: NORMAL INSPECTION, NO MIDLINE TENDERNESS, NO CVA TENDERNESS, NO PARAVERTEBRAL TTP Upper Extremities: NO EDEMA, NO DEFORMITY, NORMAL ROM Edema: Bilateral LE (2+) Pulses: carotid (R) (1+), carotid (L) (1+), posterior tibial (R), posterior tibial (L) (2+) Neuro: ALERT, ORIENTED x 3, NORMAL MOTOR EXAM, NORMAL SENSATION Diagnostics Labs Results Past 24 Hours Test 04/21/17 20:19 04/22/17 05:39 04/22/17 07:25 04/22/17 11:12 Range/Units Bedside Glucose 229 180 137 70-99 mg/dl White Blood Count 15.12 4.8-10.8 K/uL Red Blood Count 2.95 4.7-6.1 M/uL Hemoglobin 9.2 14.0-18.0 g/dL Hematocrit 26.6 42-52 % Mean Corpuscular Volume 90.2 80-100 fL Mean Corpuscular Hemoglobin 31.2 25-34 pg Mean Corpuscular Hemoglobin Concent 34.6 32-36 g/dl Platelet Count 106 130-400 K/uL Mean Platelet Volume 9.9 7.4-10.4 fL RDW Standard Deviation 44.9 36.4-46.3 fL RDW Coefficient of Variation 13.6 11.5-14.5 % Neutrophils % (Manual) 92.9 % Lymphocytes % (Manual) 0.0 % Monocytes % (Manual) 0.9 % Metamyelocytes % 3.5 % Myelocytes % 2.7 % Neutrophils # (Manual) 14.05 1.4-6.5 K/uL Total Absolute Neutrophils 14.05 1.4-6.5 K/uL Total Absolute Lymphocytes 0.00 1.2-3.4 K/uL Monocytes # (Manual) 0.14 0.11-0.59 K/uL Metamyelocytes # 0.53 0-0 K/uL Myelocytes # 0.41 0-0 K/uL Toxic Granulation 1+ Dohle Bodies 1+ Sodium Level 133 136-145 mmol/L Potassium Level 4.3 3.5-5.1 mmol/L Chloride Level 98 98-107 mmol/L Carbon Dioxide Level 30 21-32 mmol/L Anion Gap 6.0 3-11 mmol/L Blood Urea Nitrogen 51 7-18 mg/dl Creatinine 1.39 0.60-1.40 mg/dl Est Creatinine Clear Calc Drug Dose 60.4 ml/min Estimated GFR () 57.1 Estimated GFR (Non- 49.2 BUN/Creatinine Ratio 36.5 10-20 Random Glucose 155 70-99 mg/dl Calcium Level 7.6 8.5-10.1 mg/dl Test 04/22/17 16:37 Range/Units Bedside Glucose 153 70-99 mg/dl Microbiology Results 04/22/17 Gram Stain, Received Pending 04/22/17 Sputum Culture, Received Pending Diagnostic Radiology Recent CT imaging showing decrease in overall mediastinal mass and right upper lobe mass. There is diffuse tree-in-bud changes throughout the lung though mostly in the upper lobes bilaterally EKG Sinus tachycardia rate 126 Impression Assessment and Plan 76-year-old gentleman with small cell lung carcinoma currently undergoing chemoradiation therapy with continued hypoxemia/dyspnea: 1 dyspnea: The patient's recent CT does show dramatic improvement in the tumor burden in the mediastinum in the right upper lobe. This would suggest that the patient is currently responding to his treatment and that other etiologies of shortness of breath/hypoxemia such as tumor emboli would be less likely. The patient has had upper extremity DVTs but only had lower extremity arterial evaluation not DVT studies. At this time I will order lower extremity bilateral DVT evaluation. As the patient has an elevated creatinine a CT angiogram is contraindicated at this time and I do not believe the patient's current respiratory status would allow for proper VQ imaging to rule out chronic thromboembolic disease. I would like to obtain an echocardiogram with bubble study but this might be of low utility as his previous echocardiogram on 03/29/2016 had poor acoustic windows. I will obtain an ABG to evaluate the patient's overall AA gradient and PaCO2 level.
[2017-04-22] MEDS ORDERED: PIPERACILL/TAZOBAC IV 3.375 GM in DEXTROSE 5% 100ML 100 ML IV SCH (21:00)
[2017-04-22] MEDS: ENOXAPARIN 40 MG/0.4 ML SYR SQ SCH (21:23)
[2017-04-22] MEDS: hydrOXYzine HCL 25 MG TAB PO PRN (21:25)
[2017-04-22] MEDS: ACETAMINOPHEN 325 MG TAB PO PRN (21:29)
[2017-04-23] VITALS (9 sets, daily range): BP systolic 114–146; BP diastolic 61–78; PULSE 98–114; TEMP 36.2–36.6; O2SAT 90–97; BMI 44.3
[2017-04-23] MEDS: DEXAMETHASONE CONC SOLN 3.75 MG, NYSTATIN SUSP 30 ML, DiphenhydrAMINE HCL SYRUP 300 MG,... PO SCH ×20 (03:55→17:42)
[2017-04-23] MEDS: ONDANSETRON INJ 2 MG/ML 2 ML VIAL IV PRN ×2 (03:55→23:06)
[2017-04-23 05:52] LABS: MEAN CORPUSCULAR HGB CONC 34.3 g/dl (32-36); MEAN PLATELET VOLUME 9.4 fL (7.4-10.4); PLATELET COUNT 134 K/uL (130-400)
[2017-04-23 06:27] LABS: HEMATOCRIT 27.1 % (42-52); HEMOGLOBIN 9.3 g/dL (14.0-18.0); MEAN CELL VOLUME 90.9 fL (80-100); MEAN CORPUSCULAR HEMOGLOBIN 31.2 pg (25-34); RED CELL DISTRIBUTION WIDTH CV 13.9 % (11.5-14.5); RED CELL DISTRIBUTION WIDTH SD 45.2 fL (36.4-46.3); WHITE BLOOD COUNT 13.37 K/uL (4.8-10.8)
[2017-04-23 06:40] LABS: CALCIUM 7.6 mg/dl (8.5-10.1); CREATININE 1.47 mg/dl (0.60-1.40); POTASSIUM 4.4 mmol/L (3.5-5.1)
[2017-04-23] MEDS: VANCOMYCIN IV 1,500 MG in SODIUM CHLORIDE 0.9% 500ML 500 ML IV SCH (07:09)
[2017-04-23] MEDS: ALBUT/IPRATROP 3MG/0.5MG NEB 3 ML VIAL INH SCH ×4 (07:39→18:56)
[2017-04-23] MEDS: INSULIN ASPART 100 UNITS/ML 3 ML PEN SC SCH ×4 (08:57→20:30)
[2017-04-23] MEDS: BOOST GLUCOSE CONTROL PO SCH (09:23)
[2017-04-23] MEDS: INSULIN GLARGINE SOLOSTAR 100 UNITS/ML 3 ML PEN SC SCH ×2 (09:23→20:30)
[2017-04-23] MEDS ORDERED: NURSING VERBAL MED ORDER ONE (09:30)
[2017-04-23] MEDS: TIOTROPIUM BROMIDE 5 PUFF/90 MCG INH INH SCH (10:36)
[2017-04-23] MEDS: ATORVASTATIN 20 MG TAB PO SCH (10:36)
[2017-04-23] MEDS: BUDESONIDE/FORMOTEROL FUMARATE 160/4.5 60 PUFFS/INHALER INH SCH ×2 (10:36→20:26)
[2017-04-23] MEDS: ASPIRIN 81 MG ECTAB PO SCH (10:36)
[2017-04-23] MEDS: POTASSIUM CHLORIDE 20 MEQ/15 ML UDC PO SCH (10:36)
[2017-04-23] MEDS: AMLODIPINE BESYLATE 5 MG TAB PO SCH (10:37)
--- NOTE | 2017-04-23 12:30 | Hospitalist Progress Note ---
Hospitalist Progress Note Date of Service Apr 23, 2017. Subjective Pt evaluation today including: conversation w/ patient, physical exam, lab review, review of inpatient medication list Voiding: no voiding problems Patient resting in bed. Alert/oriented x3. O2 NC on. Appears in better spirits today. Patient ate some of breakfast, states he just doesn't have an appetite. He is hoping for radiation this afternoon as long as he doesn't get to fatigued/ weak throughout the AM. + SOB but breathing feels to be improving. +cough w/ sputum production. Patient denies any fever, chills, sweats, lightheadedness, dizziness, vision changes, CP, palpitations, edema, wheezing, abdominal pain, nausea, vomiting, diarrhea, urinary symptoms, melena, numbness/tingling, weakness, muscle/joint pain, anxiety/depression, active bleeding, or new skin discoloration/changes. Medications Current Inpatient Medications Medications (Trade) Dose Ordered Sig/Michel Route Start Time Stop Time Status Last Admin Dose Admin Acetaminophen (Tylenol Tab) 650 mg Q4H PRN PO 04/14/17 21:00 05/14/17 20:59 04/22/17 21:29 650 MG Magnesium Hydroxide (Milk Of Magnesia Susp) 30 ml Q6H PRN PO 04/14/17 21:00 05/14/17 20:59 Polyethylene (Miralax Powder Packet) 17 gm DAILY PRN PO 04/14/17 21:00 05/14/17 20:59 Ondansetron HCl (Zofran Inj) 4 mg Q6H PRN IV 04/14/17 21:00 05/14/17 20:59 04/23/17 03:55 4 MG Insulin Aspart (novoLOG ASPART) SLIDING SCALE If C... ACHS SC 04/14/17 21:00 05/14/17 20:59 04/22/17 21:23 13 UNITS Glucose (Glucose 40% Gel) 15-30 GRAMS 15 GRAMS... UD PRN PO 04/14/17 21:00 05/14/17 20:59 Glucose (Glucose Chew Tab) 4-8 Tablets 4 Tabl... UD PRN PO 04/14/17 21:00 05/14/17 20:59 Dextrose (Dextrose 50% 50ML Syringe) 25-50ML OF 50% DW IV FOR... UD PRN IV 04/14/17 21:00 05/14/17 20:59 Glucagon (Glucagon Inj) 1 mg UD PRN SQ 04/14/17 21:00 05/14/17 20:59 Amlodipine Besylate (Norvasc Tab) 5 mg QAM PO 04/15/17 08:00 05/15/17 08:59 04/23/17 10:37 5 MG Aspirin (Ecotrin Tab) 81 mg DAILY PO 04/15/17 08:00 05/15/17 08:59 04/22/17 08:32 81 MG Atorvastatin Calcium (Lipitor Tab) 40 mg DAILY PO 04/15/17 08:00 05/15/17 08:59 04/22/17 08:32 40 MG Budesonide/ Formoterol Fumarate (Symbicort 160/ 4.5 Inh) 2 puffs BID INH 04/15/17 08:00 05/15/17 07:59 04/23/17 10:36 2 PUFFS Furosemide (Lasix Tab) 20 mg DAILY PO 04/15/17 08:00 05/15/17 08:59 Future Hold 04/18/17 07:40 20 MG Tiotropium [place] (Spiriva Handihaler Inhaler) 1 puff QAM INH 04/15/17 08:00 05/15/17 08:59 04/23/17 10:36 1 PUFF Albuterol/ Ipratropium (Duoneb) 3 ml QIDR INH 04/15/17 08:00 05/15/17 07:59 04/23/17 11:42 3 ML Heparin Sodium (Porcine) (Heparin 100 Unit/ml 5ml Flush) 5 ml PRN PRN IV 04/15/17 04:00 05/15/17 03:59 04/22/17 19:37 5 ML Enteral Nutritional Formula (Boost Glucose Control) 1 can BID PO 04/15/17 20:00 05/15/17 19:59 04/20/17 21:01 1 CAN Prednisone (PredniSONE TAB) 40 mg Taper DAILY PO 04/17/17 08:00 05/04/17 07:59 04/22/17 08:32 40 MG Albuterol (Ventolin Hfa Inhaler) 2 puffs Q4H PRN INH 04/16/17 14:00 05/15/17 00:00 04/20/17 08:17 2 PUFFS Lidocaine HCl/ Diphenhydramine HCl/Al Hydroxide/ Mg Hydroxide/ Glycerin/Barcode Q4H PRN MT 04/18/17 10:15 05/18/17 10:14 Hydroxyzine HCl (Vistaril Tab) 50 mg HSZ PRN PO 04/18/17 15:30 05/14/17 20:59 04/22/17 21:25 50 MG Enoxaparin Sodium (Lovenox Inj) 40 mg Q24H SQ 04/18/17 21:00 05/18/17 20:59 04/22/17 21:23 40 MG Potassium Chloride (Shelby Ciel Elix) 40 meq QAM PO 04/20/17 08:00 05/20/17 07:59 04/20/17 11:39 40 MEQ Guaifenesin (Organidin Nr Tab) 200 mg Q4H PRN PO 04/21/17 12:00 05/21/17 11:59 Insulin Glargine (Lantus Solostar Pen) 13 units HS SC 04/21/17 21:00 05/21/17 20:59 04/22/17 21:21 13 UNITS Insulin Glargine (Lantus Solostar Pen) 30 units DAILY@0800 SC 04/22/17 08:00 05/22/17 07:59 Future hold 04/22/17 08:39 30 UNITS Ioversol (Optiray 320) 100 ml UD PRN IV 04/22/17 09:00 04/26/17 08:59 Miscellaneous Information (Consult) 1 ea UD PRN N/A 04/22/17 11:15 05/22/17 11:14 Vancomycin HCl 1500 mg/Sodium Chloride 530 ml @ 200 mls/hr Q18H IV 04/23/17 06:00 04/30/17 05:59 04/23/17 07:09 200 MLS/HR Levofloxacin 750 mg/Prmx 150 ml @ 100 mls/hr Q24H IV 04/22/17 13:00 04/29/17 12:59 04/22/17 15:15 100 MLS/HR Dexamethasone/ Nystatin/ Diphenhydramine HCl/Sucrose/ Microcrystalline Cellulose/Barcode Q6 PO 04/22/17 18:00 4/13/18 17:59 04/23/17 07:09 5 ML Objective Vital Signs Date Time Temp Pulse Resp B/P (MAP) Pulse Ox O2 Delivery O2 Flow Rate FiO2 04/23/17 11:45 36.2 102 20 146/78 (100) 94 04/23/17 11:42 100 20 93 Nasal Cannula 3.0 04/23/17 10:00 Nasal Cannula 4.0 04/23/17 07:54 36.6 99 24 114/69 (84) 96 Nasal Cannula 3.0 04/23/17 07:39 100 20 95 Nasal Cannula 3.0 04/23/17 03:16 36.3 101 18 130/72 (91) 95 Nasal Cannula 3.0 04/23/17 00:05 Nasal Cannula 04/22/17 23:51 36.6 103 20 115/65 (82) 93 CPAP 3.0 04/22/17 19:13 36.6 114 24 123/67 (85) 93 Nasal Cannula 3.0 04/22/17 18:47 98 20 93 Nasal Cannula 3.0 04/22/17 16:03 103 26 93 Nasal Cannula 3.0 04/22/17 16:00 Nasal Cannula Physical Exam General Appearance: no apparent distress, + obese, + pertinent finding (O2 NC ) Eyes: normal inspection, PERRL ENT: hearing grossly normal Neck: supple Respiratory/Chest: no respiratory distress, no accessory muscle use, + decreased breath sounds (throughout ), + pertinent finding (coarse breath sounds throughout ) Cardiovascular: regular rate, rhythm Abdomen: normal bowel sounds, non tender, soft Extremities: no calf tenderness, + swelling (+1-2 pitting edema of upper/lower bilateral extremities ) Neurologic/Psychiatric: alert, normal mood/affect, oriented x 3 Skin: normal color, warm/dry, no rash Laboratory Results Last 24 Hours Test 04/22/17 16:37 04/22/17 20:16 04/23/17 05:32 04/23/17 06:44 Bedside Glucose 153 mg/dl 195 mg/dl 95 mg/dl White Blood Count 13.37 K/uL Red Blood Count 2.98 M/uL Hemoglobin 9.3 g/dL Hematocrit 27.1 % Mean Corpuscular Volume 90.9 fL Mean Corpuscular Hemoglobin 31.2 pg Mean Corpuscular Hemoglobin Concent 34.3 g/dl Platelet Count 134 K/uL Mean Platelet Volume 9.4 fL RDW Standard Deviation 45.2 fL RDW Coefficient of Variation 13.9 % Neutrophils % (Manual) 88.6 % Lymphocytes % (Manual) 2.6 % Monocytes % (Manual) 7.0 % Basophils % (Manual) 0.9 % Myelocytes % 0.9 % Neutrophils # (Manual) 11.85 K/uL Total Absolute Neutrophils 11.85 K/uL Lymphocytes # (Manual) 0.35 K/uL Total Absolute Lymphocytes 0.35 K/uL Monocytes # (Manual) 0.94 K/uL Basophils # (Manual) 0.12 K/uL Myelocytes # 0.12 K/uL Toxic Granulation 2+ Sodium Level 133 mmol/L Potassium Level 4.4 mmol/L Chloride Level 98 mmol/L Carbon Dioxide Level 29 mmol/L Anion Gap 5.0 mmol/L Blood Urea Nitrogen 49 mg/dl Creatinine 1.47 mg/dl Est Creatinine Clear Calc Drug Dose 57.7 ml/min Estimated GFR () 53.3 Estimated GFR (Non- 46.0 BUN/Creatinine Ratio 33.3 Random Glucose 51 mg/dl Calcium Level 7.6 mg/dl Test 04/23/17 07:35 04/23/17 09:07 04/23/17 11:39 Bedside Glucose 81 mg/dl 80 mg/dl Arterial Blood pH 7.40 Arterial Blood Partial Pressure CO2 46 mmHg Arterial Blood Partial Pressure O2 79 mm/Hg Arterial Blood HCO3 28 mmol/L Arterial Blood Oxygen Saturation 93.8 % Arterial Blood Base Excess 2.5 mEq/L Arterial Blood Gas Delivery 4L Alexei Test POS Assessment and Plan 76-year-old male here with neutropenic fever and pancytopenia from chemotherapy that was to treat a 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 Atypical infectious process on CT 04/22: - Started on Vancomycin + Levaquin - Sputum culture pending - Continue O2 protocol, DuoNebs, home inhalers, Mucinex PRN - Continue Prednisone taper - Leukocytosis- IMPROVING- follow CBC - Encourage patient OOB in chair - Consult pulmonary, appreciate recommendations- repeat ECHO, bilateral venous Doppler to assess DVT Neutropenic fevers- RESOLVED: - Treated w/ Neupogen - Neutropenic precautions - IV Zosyn prophylactically- no source of infection, d/c'ed - UA negative; BCx negative; sputum culture negative; C.diff negative - Hematology/oncology consulted- holding chemo/radiation, f/u outpatient Pancytopenia, secondary to chemotherapy- RESOLVED Small cell lung cancer: - Hematology/oncology following, will discuss further treatment options once acute illness resolved - Decreased size of mass on CT o 04/22 Goals of care: - Palliative care consulted - Oncology believes poor condition is due to underlying lung disease and not the cancer - Meeting with patient/daughter- DNR, but still want treatment with goal of getting home. Patient/daughter agreeable to rehab at discharge if needed. 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 diff negative CAD, HLD: Continue Aspirin, Lipitor, Norvasc T2DM w/ hypoglycemia likely secondary to poor PO intake: - Lantus 30 u QAM and 13 u HS - BSG ACHS and ISS Insomnia: Vistaril HS DVT prophylaxis: Lovenox SQ Code status: LEVEL V, DNR Dispo: Discharge uncertain at this time- PT/OT and CM consulted- patient/ daughter agreeable to rehab at discharge
[2017-04-23] MEDS: LEVOFLOXACIN 750MG / D5W IV SCH (13:01)
--- NOTE | 2017-04-23 14:16 | Palliative Care Progress Note ---
Palliative Care Progress Note Date of Service Apr 23, 2017. Subjective Pt evaluation today including: conversation w/ patient, physical exam, chart review, conversation w/ medical sales consultant (Carrillo Gonzalez PA-C) Pain: none at this time Voiding: no voiding problems -Patient is feeling about the same. Still visibly labored breathing at rest although patient denies dyspnea. -Patient was agreeing this AM To go to radiation. -Family meeting was held last evening by hospitalist SUDHA and physician with patient and daughter, Meagan Jordan. Patient is now DNR, wants to continue treatment. Review of Systems Constitutional: + weakness, + fatigue ENT: No trouble swallowing Respiratory: + cough, + dyspnea on exertion, No dyspnea at rest Cardiac: + edema (UE/LE), No chest pain Abdomen: No pain, No nausea, No vomiting Male : No problem reported Psychiatric: No anxiety Objective Vital Signs Date Time Temp Pulse Resp B/P (MAP) Pulse Ox O2 Delivery O2 Flow Rate FiO2 04/23/17 11:45 36.2 102 20 146/78 (100) 94 04/23/17 11:42 100 20 93 Nasal Cannula 3.0 04/23/17 10:00 Nasal Cannula 4.0 04/23/17 07:54 36.6 99 24 114/69 (84) 96 Nasal Cannula 3.0 04/23/17 07:39 100 20 95 Nasal Cannula 3.0 04/23/17 03:16 36.3 101 18 130/72 (91) 95 Nasal Cannula 3.0 04/23/17 00:05 Nasal Cannula 04/22/17 23:51 36.6 103 20 115/65 (82) 93 CPAP 3.0 04/22/17 19:13 36.6 114 24 123/67 (85) 93 Nasal Cannula 3.0 04/22/17 18:47 98 20 93 Nasal Cannula 3.0 04/22/17 16:03 103 26 93 Nasal Cannula 3.0 04/22/17 16:00 Nasal Cannula Physical Exam General Appearance: no apparent distress, + obese ENT: hearing grossly normal Neck: supple, no JVD Respiratory/Chest: no respiratory distress, no accessory muscle use, + decreased breath sounds, + rhonchi, + wheezing (expiratory) Cardiovascular: regular rate, rhythm, + pertinent finding (+4 pitting edema to UE/LE) Abdomen: normal bowel sounds, non tender, soft Neurologic/Psychiatric: alert, normal mood/affect, oriented x 3 (is forgetful, uncertain of comprehension) Laboratory Results Last 24 Hours Test 04/22/17 16:37 04/22/17 20:16 04/23/17 05:32 04/23/17 06:44 Bedside Glucose 153 mg/dl 195 mg/dl 95 mg/dl White Blood Count 13.37 K/uL Red Blood Count 2.98 M/uL Hemoglobin 9.3 g/dL Hematocrit 27.1 % Mean Corpuscular Volume 90.9 fL Mean Corpuscular Hemoglobin 31.2 pg Mean Corpuscular Hemoglobin Concent 34.3 g/dl Platelet Count 134 K/uL Mean Platelet Volume 9.4 fL RDW Standard Deviation 45.2 fL RDW Coefficient of Variation 13.9 % Neutrophils % (Manual) 88.6 % Lymphocytes % (Manual) 2.6 % Monocytes % (Manual) 7.0 % Basophils % (Manual) 0.9 % Myelocytes % 0.9 % Neutrophils # (Manual) 11.85 K/uL Total Absolute Neutrophils 11.85 K/uL Lymphocytes # (Manual) 0.35 K/uL Total Absolute Lymphocytes 0.35 K/uL Monocytes # (Manual) 0.94 K/uL Basophils # (Manual) 0.12 K/uL Myelocytes # 0.12 K/uL Toxic Granulation 2+ Sodium Level 133 mmol/L Potassium Level 4.4 mmol/L Chloride Level 98 mmol/L Carbon Dioxide Level 29 mmol/L Anion Gap 5.0 mmol/L Blood Urea Nitrogen 49 mg/dl Creatinine 1.47 mg/dl Est Creatinine Clear Calc Drug Dose 57.7 ml/min Estimated GFR () 53.3 Estimated GFR (Non- 46.0 BUN/Creatinine Ratio 33.3 Random Glucose 51 mg/dl Calcium Level 7.6 mg/dl Test 04/23/17 07:35 04/23/17 09:07 04/23/17 11:39 Bedside Glucose 81 mg/dl 80 mg/dl Arterial Blood pH 7.40 Arterial Blood Partial Pressure CO2 46 mmHg Arterial Blood Partial Pressure O2 79 mm/Hg Arterial Blood HCO3 28 mmol/L Arterial Blood Oxygen Saturation 93.8 % Arterial Blood Base Excess 2.5 mEq/L Arterial Blood Gas Delivery 4L Alexei Test POS Assessment and Plan Problem list: BANG Fatigue Generalized weakness COPD, presumably severe Small cell lung cancer Goals of care Palliative care recs: -Patient is now level 5 DNR after family meeting was held last evening with hospitalist XI and physician with patient and his daughter/POA, Megaan Jordan. -Patient was in agreement this morning to go to radiation treatment. -MRI was ordered for head, but is now cancelled. Daughter spoke with SAMANTHA Jones/manager case, and was upset about this. She wants it reordered. Daughter also wants to speak with oncologist and post doctoral fellow. Zakiya Swift has contacted Young Arteaga, cancer home health care case manager to make her aware. -Patient still has goal of continuing treatment and eventually would like to get back home. He is agreeable to rehab prior to going home after hospitalization. Case management following closely for discharge. -Advanced directive was completed by service excellence, copy is on chart. At end-stage medical condition, patient does not want heroic measures or tube feedings. Daughter Meagan is POA. -Agree with pulmonary consult. Thank you again for this consult. I will sign off for now, but please contact me with any further palliative care needs. Total time spent 25 minutes with >50% of time spent at bedside with patient discussing plan of care. Palliative Performance Scale: 40 % Continued [facility] stay due to: multiple IV medications needed, home environment unsafe for pt Discharge planning: uncertain
--- NOTE | 2017-04-23 14:21 | DIAGNOSTIC IMAGING REPORT ---
ULTRASOUND BILATERAL LOWER EXTREMITY VENOUS CLINICAL HISTORY: Leg pain. COMPARISON STUDY: No priors. TECHNIQUE: Real-time, grayscale, and color Doppler sonography of the deep veins of the right and left lower extremity was performed from the inguinal crease to the calf. Compression and augmentation were utilized. FINDINGS: Right lower extremity: Nonocclusive and age indeterminant deep venous thrombosis is identified in the midportion of the right superficial femoral vein. The common femoral vein, the proximal and distal portions of the superficial femoral vein, and the popliteal vein are patent and normally compressible. The greater saphenous vein and the profunda femoris vein at the junction with the common femoral vein are clear. The visualized calf veins are patent. Left lower extremity: There is no sonographic evidence of the venous thrombosis identified in the left lower extremity. The common femoral, superficial femoral, and popliteal veins are patent and normally compressible. The greater saphenous vein and the profunda femoris vein at the junction with the common femoral vein are clear. The visualized calf veins are patent. IMPRESSION: 1. There is age indeterminant and nonocclusive deep venous thrombosis identified in the midportion of the right superficial femoral vein. 2. The remaining deep veins of the right lower extremity are patent. 3. There is no sonographic evidence of deep venous thrombosis in the left lower extremity. Electronically signed by: Donald Matos M.D. 04/23/2017 2:20 PM Dictated Date/Time: 04/23/2017 2:16 PM
[2017-04-23] MEDS ORDERED: HEPARIN 25,000 UNIT/500ML D5W 500 ML IV SCH (15:00)
[2017-04-23] MEDS ORDERED: HEPARIN IV BOLUS 8,000 UNIT in SYRINGE 0 ML IV ONE (15:00)
[2017-04-23 15:05] LABS: HEMATOCRIT 27.1 % (42-52); HEMOGLOBIN 9.2 g/dL (14.0-18.0); MEAN CELL VOLUME 91.2 fL (80-100); MEAN PLATELET VOLUME 9.4 fL (7.4-10.4); PLATELET COUNT 141 K/uL (130-400); RED CELL DISTRIBUTION WIDTH SD 46.2 fL (36.4-46.3); WHITE BLOOD COUNT 13.57 K/uL (4.8-10.8)
[2017-04-23 15:20] LABS: MEAN CORPUSCULAR HGB CONC 33.9 g/dl (32-36)
[2017-04-23 15:24] LABS: INR 1.1 (0.9-1.1)
--- NOTE | 2017-04-23 17:21 | Pulmonology Progress Note ---
Pulmonary Progress Note Date of Service Apr 23, 2017. Attending Dr. Cabral Subjective Patient is stable over the last 24 hours but continues to have dyspnea. He notes he is continually short of breath even at rest. Objective 76-year-old gentleman with diagnosis Limited small cell lung CA admitted for failure to thrive and notable hypoxemia. The patient continues to be hypoxic and easily becomes tachypnea during conversations. Is also having increasing creatinine/renal insufficiency. Patient is using accessory muscles during our conversation. Vital signs: Stable but requires 3-4 L nasal cannula Respiratory: Decreased breath sounds bilaterally Cardiac: S1-S2 tachycardic distant heart sounds unable to auscultate for murmurs rubs or gallops Abdomen: Bloated but nontender no rebound noted Extremities: 1+ bilateral lower extremity edema Assessment & Plan 76-year-old male with limited small cell lung CA and progressive renal insufficiency and hypoxemia: 1. Hypoxemia: I did speak to the cardiology team and a bubble study would be nondiagnostic as the patient has poor acoustic windows. Patient does have an increased AA gradient of 103 positive proximal DVT study performed. With the patient's small cell lung cancer and clinical condition most likely had a pulmonary embolism. There is a very difficult diagnosis is at this time it cannot be radiographically verified as he is unable to perform CT angiogram of the chest as well as VQ scan. Along with this we are unable to rule out metastatic disease from his head as he is unable to perform a CT angiogram of the head and/or lie flat for prolonged period of time for an MRI. Her choices to move forward or possibly initiating empiric anticoagulation in this case it should be Lovenox but he does have rising creatinine which puts him at risk for secondary effects such as retroperitoneal hematomas or even bleeding in his head secondary to undiagnosed metastatic disease. We could also initiate placement of a filter to decrease risk of further thrombosis but I will not help his underlying condition at this time. I have spoken to his oncology and radiation oncology teams about this issue. I have also spoken to the patient about this issue and the risk of anticoagulation. He is not sure if he like to move forward at this time and would like to discuss this with his daughter. Data Medications: Current Inpatient Medications Medications (Trade) Dose Ordered Sig/Michel Route Start Time Stop Time Status Last Admin Dose Admin Acetaminophen (Tylenol Tab) 650 mg Q4H PRN PO 04/14/17 21:00 05/14/17 20:59 04/22/17 21:29 650 MG Magnesium Hydroxide (Milk Of Magnesia Susp) 30 ml Q6H PRN PO 04/14/17 21:00 05/14/17 20:59 Polyethylene (Miralax Powder Packet) 17 gm DAILY PRN PO 04/14/17 21:00 05/14/17 20:59 Ondansetron HCl (Zofran Inj) 4 mg Q6H PRN IV 04/14/17 21:00 05/14/17 20:59 04/23/17 03:55 4 MG Insulin Aspart (novoLOG ASPART) SLIDING SCALE If C... ACHS SC 04/14/17 21:00 05/14/17 20:59 04/22/17 21:23 13 UNITS Glucose (Glucose 40% Gel) 15-30 GRAMS 15 GRAMS... UD PRN PO 04/14/17 21:00 05/14/17 20:59 Glucose (Glucose Chew Tab) 4-8 Tablets 4 Tabl... UD PRN PO 04/14/17 21:00 05/14/17 20:59 Dextrose (Dextrose 50% 50ML Syringe) 25-50ML OF 50% DW IV FOR... UD PRN IV 04/14/17 21:00 05/14/17 20:59 Glucagon (Glucagon Inj) 1 mg UD PRN SQ 04/14/17 21:00 05/14/17 20:59 Amlodipine Besylate (Norvasc Tab) 5 mg QAM PO 04/15/17 08:00 05/15/17 08:59 04/23/17 10:37 5 MG Aspirin (Ecotrin Tab) 81 mg DAILY PO 04/15/17 08:00 05/15/17 08:59 04/22/17 08:32 81 MG Atorvastatin Calcium (Lipitor Tab) 40 mg DAILY PO 04/15/17 08:00 05/15/17 08:59 04/22/17 08:32 40 MG Budesonide/ Formoterol Fumarate (Symbicort 160/ 4.5 Inh) 2 puffs BID INH 04/15/17 08:00 05/15/17 07:59 04/23/17 10:36 2 PUFFS Furosemide (Lasix Tab) 20 mg DAILY PO 04/15/17 08:00 05/15/17 08:59 Future Hold 04/18/17 07:40 20 MG Tiotropium [place] (Spiriva Handihaler Inhaler) 1 puff QAM INH 04/15/17 08:00 05/15/17 08:59 04/23/17 10:36 1 PUFF Albuterol/ Ipratropium (Duoneb) 3 ml QIDR INH 04/15/17 08:00 05/15/17 07:59 04/23/17 15:40 3 ML Heparin Sodium (Porcine) (Heparin 100 Unit/ml 5ml Flush) 5 ml PRN PRN IV 04/15/17 04:00 05/15/17 03:59 04/22/17 19:37 5 ML Prednisone (PredniSONE TAB) 40 mg Taper DAILY PO 04/17/17 08:00 05/04/17 07:59 04/22/17 08:32 40 MG Albuterol (Ventolin Hfa Inhaler) 2 puffs Q4H PRN INH 04/16/17 14:00 05/15/17 00:00 04/20/17 08:17 2 PUFFS Lidocaine HCl/ Diphenhydramine HCl/Al Hydroxide/ Mg Hydroxide/ Glycerin/Barcode Q4H PRN MT 04/18/17 10:15 05/18/17 10:14 Hydroxyzine HCl (Vistaril Tab) 50 mg HSZ PRN PO 04/18/17 15:30 05/14/17 20:59 04/22/17 21:25 50 MG Potassium Chloride (Shelby Ciel Elix) 40 meq QAM PO 04/20/17 08:00 05/20/17 07:59 04/20/17 11:39 40 MEQ Guaifenesin (Organidin Nr Tab) 200 mg Q4H PRN PO 04/21/17 12:00 05/21/17 11:59 Insulin Glargine (Lantus Solostar Pen) 13 units HS SC 04/21/17 21:00 05/21/17 20:59 04/22/17 21:21 13 UNITS Insulin Glargine (Lantus Solostar Pen) 30 units DAILY@0800 SC 04/22/17 08:00 05/22/17 07:59 Future hold 04/22/17 08:39 30 UNITS Ioversol (Optiray 320) 100 ml UD PRN IV 04/22/17 09:00 04/26/17 08:59 Miscellaneous Information (Consult) 1 ea UD PRN N/A 04/22/17 11:15 05/22/17 11:14 Vancomycin HCl 1500 mg/Sodium Chloride 530 ml @ 200 mls/hr Q18H IV 04/23/17 06:00 04/30/17 05:59 04/23/17 07:09 200 MLS/HR Levofloxacin 750 mg/Prmx 150 ml @ 100 mls/hr Q24H IV 04/22/17 13:00 04/29/17 12:59 04/23/17 13:01 100 MLS/HR Dexamethasone/ Nystatin/ Diphenhydramine HCl/Sucrose/ Microcrystalline Cellulose/Barcode Q6 PO 04/22/17 18:00 05/22/17 17:59 04/23/17 07:09 5 ML Heparin Sodium/ Dextrose 500 ml @ 34 mls/hr [id number] IV 04/23/17 15:00 05/23/17 14:59 04/23/17 15:24 34 MLS/HR Vital Signs: Date Time Temp Pulse Resp B/P (MAP) Pulse Ox O2 Delivery O2 Flow Rate FiO2 04/23/17 16:00 Nasal Cannula 3.0 04/23/17 15:41 106 20 96 Nasal Cannula 3.0 04/23/17 14:27 36.2 98 22 137/66 (89) 97 Nasal Cannula 3.0 04/23/17 11:45 36.2 102 20 146/78 (100) 94 04/23/17 11:42 100 20 93 Nasal Cannula 3.0 04/23/17 10:00 Nasal Cannula 4.0 04/23/17 07:54 36.6 99 24 114/69 (84) 96 Nasal Cannula 3.0 04/23/17 07:39 100 20 95 Nasal Cannula 3.0 04/23/17 03:16 36.3 101 18 130/72 (91) 95 Nasal Cannula 3.0 04/23/17 00:05 Nasal Cannula 04/22/17 23:51 36.6 103 20 115/65 (82) 93 CPAP 3.0 04/22/17 19:13 36.6 114 24 123/67 (85) 93 Nasal Cannula 3.0 04/22/17 18:47 98 20 93 Nasal Cannula 3.0 Laboratory Results: Last 24 Hours Test 04/22/17 20:16 04/23/17 05:32 04/23/17 06:44 04/23/17 07:35 Bedside Glucose 195 mg/dl 95 mg/dl 81 mg/dl White Blood Count 13.37 K/uL Red Blood Count 2.98 M/uL Hemoglobin 9.3 g/dL Hematocrit 27.1 % Mean Corpuscular Volume 90.9 fL Mean Corpuscular Hemoglobin 31.2 pg Mean Corpuscular Hemoglobin Concent 34.3 g/dl Platelet Count 134 K/uL Mean Platelet Volume 9.4 fL RDW Standard Deviation 45.2 fL RDW Coefficient of Variation 13.9 % Neutrophils % (Manual) 88.6 % Lymphocytes % (Manual) 2.6 % Monocytes % (Manual) 7.0 % Basophils % (Manual) 0.9 % Myelocytes % 0.9 % Neutrophils # (Manual) 11.85 K/uL Total Absolute Neutrophils 11.85 K/uL Lymphocytes # (Manual) 0.35 K/uL Total Absolute Lymphocytes 0.35 K/uL Monocytes # (Manual) 0.94 K/uL Basophils # (Manual) 0.12 K/uL Myelocytes # 0.12 K/uL Toxic Granulation 2+ Sodium Level 133 mmol/L Potassium Level 4.4 mmol/L Chloride Level 98 mmol/L Carbon Dioxide Level 29 mmol/L Anion Gap 5.0 mmol/L Blood Urea Nitrogen 49 mg/dl Creatinine 1.47 mg/dl Est Creatinine Clear Calc Drug Dose 57.7 ml/min Estimated GFR () 53.3 Estimated GFR (Non- 46.0 BUN/Creatinine Ratio 33.3 Random Glucose 51 mg/dl Calcium Level 7.6 mg/dl Test 04/23/17 09:07 04/23/17 11:39 04/23/17 14:48 04/23/17 16:32 Arterial Blood pH 7.40 Arterial Blood Partial Pressure CO2 46 mmHg Arterial Blood Partial Pressure O2 79 mm/Hg Arterial Blood HCO3 28 mmol/L Arterial Blood Oxygen Saturation 93.8 % Arterial Blood Base Excess 2.5 mEq/L Arterial Blood Gas Delivery 4L Alexei Test POS Bedside Glucose 80 mg/dl 167 mg/dl White Blood Count 13.57 K/uL Red Blood Count 2.97 M/uL Hemoglobin 9.2 g/dL Hematocrit 27.1 % Mean Corpuscular Volume 91.2 fL Mean Corpuscular Hemoglobin 31.0 pg Mean Corpuscular Hemoglobin Concent 33.9 g/dl Platelet Count 141 K/uL Mean Platelet Volume 9.4 fL RDW Standard Deviation 46.2 fL RDW Coefficient of Variation 14.0 % Neutrophils % (Manual) 91.3 % Lymphocytes % (Manual) 4.3 % Monocytes % (Manual) 2.6 % Metamyelocytes % 0.9 % Myelocytes % 0.9 % Neutrophils # (Manual) 12.39 K/uL Total Absolute Neutrophils 12.39 K/uL Lymphocytes # (Manual) 0.58 K/uL Total Absolute Lymphocytes 0.58 K/uL Monocytes # (Manual) 0.35 K/uL Metamyelocytes # 0.12 K/uL Myelocytes # 0.12 K/uL Toxic Granulation 2+ Red Blood Cell Morphology Unremarkable Prothrombin Time 11.3 SECONDS Prothromb Time International Ratio 1.1 Activated Partial Thromboplast Time 35.0 SECONDS Partial Thromboplastin Ratio 1.3
[2017-04-23] MEDS ORDERED: BOOST GLUCOSE CONTROL PO SCH (20:00)
[2017-04-23 22:21] LABS: HEMATOCRIT 26.2 % (42-52); HEMOGLOBIN 8.9 g/dL (14.0-18.0)
[2017-04-23] MEDS: hydrOXYzine HCL 25 MG TAB PO PRN (22:39)
[2017-04-23 22:55] LABS: PTT PATIENT > 300.0 SECONDS (21.0-31.0)
[2017-04-24] VITALS (9 sets, daily range): BP systolic 112–143; BP diastolic 61–74; PULSE 87–116; TEMP 36.4–36.8; O2SAT 83–100
[2017-04-24] MEDS: VANCOMYCIN IV 1,500 MG in SODIUM CHLORIDE 0.9% 500ML 500 ML IV SCH ×2 (00:15→18:23)
[2017-04-24 00:35] LABS: PTT PATIENT 282.4 SECONDS (21.0-31.0)
[2017-04-24 01:05] LABS: PTT PATIENT 215.2 SECONDS (21.0-31.0)
[2017-04-24 01:37] LABS: PTT PATIENT 131.2 SECONDS (21.0-31.0)
[2017-04-24 02:36] LABS: PTT PATIENT 110.1 SECONDS (21.0-31.0)
[2017-04-24 03:49] LABS: PTT PATIENT 70.7 SECONDS (21.0-31.0)
[2017-04-24] MEDS ORDERED: OXYMETAZOLINE HCL 0.05% NA SPR 15 ML BTL NAE ONE (05:15)
[2017-04-24] MEDS ORDERED: NURSING VERBAL MED ORDER ONE ×2 (05:15→11:45)
[2017-04-24] MEDS: ALBUT/IPRATROP 3MG/0.5MG NEB 3 ML VIAL INH SCH ×6 (06:00→19:01)
[2017-04-24] MEDS: DEXAMETHASONE CONC SOLN 3.75 MG, NYSTATIN SUSP 30 ML, DiphenhydrAMINE HCL SYRUP 300 MG,... PO SCH ×20 (06:00→18:23)
[2017-04-24 08:04] LABS: HEMATOCRIT 25.3 % (42-52); HEMOGLOBIN 8.6 g/dL (14.0-18.0); MEAN CELL VOLUME 91.3 fL (80-100); MEAN PLATELET VOLUME 9.1 fL (7.4-10.4); PLATELET COUNT 150 K/uL (130-400); RED CELL DISTRIBUTION WIDTH SD 46.1 fL (36.4-46.3); WHITE BLOOD COUNT 17.63 K/uL (4.8-10.8)
[2017-04-24 08:12] LABS: PTT PATIENT 32.7 SECONDS (21.0-31.0)
[2017-04-24 08:37] LABS: CALCIUM 7.1 mg/dl (8.5-10.1); CREATININE 1.51 mg/dl (0.60-1.40); POTASSIUM 4.1 mmol/L (3.5-5.1)
[2017-04-24] MEDS: AMLODIPINE BESYLATE 5 MG TAB PO SCH (10:41)
[2017-04-24] MEDS: ATORVASTATIN 20 MG TAB PO SCH (10:41)
[2017-04-24] MEDS: BUDESONIDE/FORMOTEROL FUMARATE 160/4.5 60 PUFFS/INHALER INH SCH ×2 (10:41→21:13)
[2017-04-24] MEDS: POTASSIUM CHLORIDE 20 MEQ/15 ML UDC PO SCH (10:41)
[2017-04-24] MEDS: ASPIRIN 81 MG ECTAB PO SCH (10:41)
[2017-04-24] MEDS: INSULIN ASPART 100 UNITS/ML 3 ML PEN SC SCH ×4 (10:42→21:16)
[2017-04-24] MEDS: INSULIN GLARGINE SOLOSTAR 100 UNITS/ML 3 ML PEN SC SCH ×2 (10:43→21:16)
[2017-04-24] MEDS ORDERED: SODIUM CHLORIDE 0.65% NA SOLN 45 ML (OCEAN) ONE (11:00)
[2017-04-24] MEDS ORDERED: SODIUM CHLORIDE 0.65% NA SOLN 45 ML (OCEAN) PRN (11:00)
--- NOTE | 2017-04-24 13:08 | Pulmonology Progress Note ---
Pulmonary Progress Note Date of Service Apr 24, 2017. Attending Dr. Cabral Subjective Patient notably in more respiratory distress this morning as he had a large nose bleed which did cause difficulty/some obstruction of his upper airway. He notes that he has greatly improved since the event at this time. Objective 76-year-old gentleman with diagnosis Limited small cell lung CA admitted for failure to thrive and notable hypoxemia. Patient is having more tachypnea and is unable to finish full sentences without using accessory muscles this morning. Vital signs: 3-7 L nasal cannula Respiratory: Rhonchi with decreased breath sounds bilaterally and tachypneic Cardiac: S1-S2 tachycardic distant heart sounds unable to auscultate for murmurs rubs or gallops Abdomen: Bloated but nontender no rebound noted Extremities: 1+ bilateral lower extremity edema ENT: Notable mucus plugs in both the narrow I as well as minimally posterior oral pharynx Assessment & Plan 76-year-old male with limited small cell lung CA and progressive renal insufficiency and hypoxemia: 1. Hypoxemia: This patient has progressive hypoxia is most likely secondary to a pulmonary embolism. This can only be clinically diagnosed at this time but he does have a hypercoagulable state with his underlying small cell lung carcinoma as well as a positive DVT study. Patient was started on heparin drip last night and had a diffuse nasal bleed. At this time the patient is not a candidate for anticoagulation. I suggest full discussion be performed with the patient as well as his daughter about his overall severely poor prognosis. If they would like to move forward I suggest an IVC catheter placement at this time. Sign off: I do not believe the Pulmonary service can add a anymore benefit at this time will sign off. Data Medications: Current Inpatient Medications Medications (Trade) Dose Ordered Sig/Michel Route Start Time Stop Time Status Last Admin Dose Admin Acetaminophen (Tylenol Tab) 650 mg Q4H PRN PO 04/14/17 21:00 05/14/17 20:59 04/22/17 21:29 650 MG Magnesium Hydroxide (Milk Of Magnesia Susp) 30 ml Q6H PRN PO 04/14/17 21:00 05/14/17 20:59 Polyethylene (Miralax Powder Packet) 17 gm DAILY PRN PO 04/14/17 21:00 05/14/17 20:59 Ondansetron HCl (Zofran Inj) 4 mg Q6H PRN IV 04/14/17 21:00 05/14/17 20:59 04/23/17 23:06 4 MG Insulin Aspart (novoLOG ASPART) SLIDING SCALE If C... ACHS SC 04/14/17 21:00 05/14/17 20:59 04/23/17 20:30 9 UNITS Glucose (Glucose 40% Gel) 15-30 GRAMS 15 GRAMS... UD PRN PO 04/14/17 21:00 05/14/17 20:59 Glucose (Glucose Chew Tab) 4-8 Tablets 4 Tabl... UD PRN PO 04/14/17 21:00 05/14/17 20:59 Dextrose (Dextrose 50% 50ML Syringe) 25-50ML OF 50% DW IV FOR... UD PRN IV 04/14/17 21:00 05/14/17 20:59 Glucagon (Glucagon Inj) 1 mg UD PRN SQ 04/14/17 21:00 05/14/17 20:59 Amlodipine Besylate (Norvasc Tab) 5 mg QAM PO 04/15/17 08:00 05/15/17 08:59 04/24/17 10:41 5 MG Aspirin (Ecotrin Tab) 81 mg DAILY PO 04/15/17 08:00 05/15/17 08:59 04/24/17 10:41 81 MG Atorvastatin Calcium (Lipitor Tab) 40 mg DAILY PO 04/15/17 08:00 05/15/17 08:59 04/24/17 10:41 40 MG Budesonide/ Formoterol Fumarate (Symbicort 160/ 4.5 Inh) 2 puffs BID INH 04/15/17 08:00 05/15/17 07:59 04/24/17 10:41 2 PUFFS Furosemide (Lasix Tab) 20 mg DAILY PO 04/15/17 08:00 05/15/17 08:59 Future Hold 04/18/17 07:40 20 MG Tiotropium [place] (Spiriva Handihaler Inhaler) 1 puff QAM INH 04/15/17 08:00 05/15/17 08:59 04/23/17 10:36 1 PUFF Albuterol/ Ipratropium (Duoneb) 3 ml QIDR INH 04/15/17 08:00 05/15/17 07:59 04/24/17 11:19 3 ML Heparin Sodium (Porcine) (Heparin 100 Unit/ml 5ml Flush) 5 ml PRN PRN IV 04/15/17 04:00 05/15/17 03:59 04/23/17 23:06 5 ML Prednisone (PredniSONE TAB) 40 mg Taper DAILY PO 04/17/17 08:00 05/04/17 07:59 04/24/17 10:41 40 MG Albuterol (Ventolin Hfa Inhaler) 2 puffs Q4H PRN INH 04/16/17 14:00 05/15/17 00:00 04/20/17 08:17 2 PUFFS Lidocaine HCl/ Diphenhydramine HCl/Al Hydroxide/ Mg Hydroxide/ Glycerin/Barcode Q4H PRN MT 04/18/17 10:15 05/18/17 10:14 Hydroxyzine HCl (Vistaril Tab) 50 mg HSZ PRN PO 04/18/17 15:30 05/14/17 20:59 04/23/17 22:39 50 MG Potassium Chloride (Shelby Ciel Elix) 40 meq QAM PO 04/20/17 08:00 05/20/17 07:59 04/20/17 11:39 40 MEQ Guaifenesin (Organidin Nr Tab) 200 mg Q4H PRN PO 04/21/17 12:00 05/21/17 11:59 Insulin Glargine (Lantus Solostar Pen) 13 units HS SC 04/21/17 21:00 05/21/17 20:59 04/23/17 20:30 13 UNITS Insulin Glargine (Lantus Solostar Pen) 30 units DAILY@0800 SC 04/22/17 08:00 05/22/17 07:59 Future hold 04/24/17 10:43 30 UNITS Ioversol (Optiray 320) 100 ml UD PRN IV 04/22/17 09:00 04/26/17 08:59 Miscellaneous Information (Consult) 1 ea UD PRN N/A 04/22/17 11:15 05/22/17 11:14 Vancomycin HCl 1500 mg/Sodium Chloride 530 ml @ 200 mls/hr Q18H IV 04/23/17 06:00 04/30/17 05:59 04/24/17 00:15 200 MLS/HR Levofloxacin 750 mg/Prmx 150 ml @ 100 mls/hr Q24H IV 04/22/17 13:00 04/29/17 12:59 04/23/17 13:01 100 MLS/HR Dexamethasone/ Nystatin/ Diphenhydramine HCl/Sucrose/ Microcrystalline Cellulose/Barcode Q6 PO 04/22/17 18:00 05/22/17 17:59 04/23/17 07:09 5 ML Sodium Chloride ([place] Nasal [place]) 2 sprays Q6 PRN NA 04/24/17 11:00 05/24/17 10:59 Vital Signs: Date Time Temp Pulse Resp B/P (MAP) Pulse Ox O2 Delivery O2 Flow Rate FiO2 04/24/17 12:13 Oxymask 3.0 04/24/17 11:20 101 24 83 Room Air 04/24/17 08:09 87 24 97 Mask 7.0 04/24/17 07:11 36.7 116 20 143/65 (91) 95 Oxymask 3.0 04/24/17 06:00 112 24 90 Mask 5.0 04/24/17 04:43 36.8 101 22 112/61 (78) 96 Oxymask 5.0 04/24/17 00:00 36.6 112 18 128/68 (88) 90 Nasal Cannula 3.0 04/24/17 00:00 Nasal Cannula 3.0 04/23/17 20:00 Nasal Cannula 3.0 04/23/17 19:25 36.4 114 20 121/61 (81) 94 Nasal Cannula 3.0 04/23/17 18:57 112 20 90 Nasal Cannula 3.0 04/23/17 16:00 Nasal Cannula 3.0 04/23/17 15:41 106 20 96 Nasal Cannula 3.0 04/23/17 14:27 36.2 98 22 137/66 (89) 97 Nasal Cannula 3.0 Laboratory Results: Last 24 Hours Test 04/23/17 14:48 04/23/17 16:32 04/23/17 20:06 04/23/17 21:23 White Blood Count 13.57 K/uL Red Blood Count 2.97 M/uL Hemoglobin 9.2 g/dL Hematocrit 27.1 % Mean Corpuscular Volume 91.2 fL Mean Corpuscular Hemoglobin 31.0 pg Mean Corpuscular Hemoglobin Concent 33.9 g/dl Platelet Count 141 K/uL Mean Platelet Volume 9.4 fL RDW Standard Deviation 46.2 fL RDW Coefficient of Variation 14.0 % Neutrophils % (Manual) 91.3 % Lymphocytes % (Manual) 4.3 % Monocytes % (Manual) 2.6 % Metamyelocytes % 0.9 % Myelocytes % 0.9 % Neutrophils # (Manual) 12.39 K/uL Total Absolute Neutrophils 12.39 K/uL Lymphocytes # (Manual) 0.58 K/uL Total Absolute Lymphocytes 0.58 K/uL Monocytes # (Manual) 0.35 K/uL Metamyelocytes # 0.12 K/uL Myelocytes # 0.12 K/uL Toxic Granulation 2+ Red Blood Cell Morphology Unremarkable Prothrombin Time 11.3 SECONDS Prothromb Time International Ratio 1.1 Activated Partial Thromboplast Time 35.0 SECONDS > 300.0 SECONDS Partial Thromboplastin Ratio 1.3 > 11.0 Bedside Glucose 167 mg/dl 223 mg/dl Test 04/23/17 21:24 04/23/17 23:31 04/24/17 00:18 04/24/17 01:03 Hemoglobin 8.9 g/dL Hematocrit 26.2 % Activated Partial Thromboplast Time 282.4 SECONDS 215.2 SECONDS 131.2 SECONDS Partial Thromboplastin Ratio 10.6 8.3 5.0 Test 04/24/17 01:55 04/24/17 03:07 04/24/17 07:34 04/24/17 07:53 Activated Partial Thromboplast Time 110.1 SECONDS 70.7 SECONDS 32.7 SECONDS Partial Thromboplastin Ratio 4.2 2.7 1.3 Bedside Glucose 89 mg/dl White Blood Count 17.63 K/uL Red Blood Count 2.77 M/uL Hemoglobin 8.6 g/dL Hematocrit 25.3 % Mean Corpuscular Volume 91.3 fL Mean Corpuscular Hemoglobin 31.0 pg Mean Corpuscular Hemoglobin Concent 34.0 g/dl RDW Standard Deviation 46.1 fL RDW Coefficient of Variation 14.0 % Platelet Count 150 K/uL Mean Platelet Volume 9.1 fL Sodium Level 134 mmol/L Potassium Level 4.1 mmol/L Chloride Level 101 mmol/L Carbon Dioxide Level 28 mmol/L Anion Gap 6.0 mmol/L Blood Urea Nitrogen 39 mg/dl Creatinine 1.51 mg/dl Est Creatinine Clear Calc Drug Dose 56.1 ml/min Estimated GFR () 51.6 Estimated GFR (Non- 44.5 BUN/Creatinine Ratio 26.0 Random Glucose 95 mg/dl Calcium Level 7.1 mg/dl Magnesium Level 1.6 mg/dl Test 04/24/17 11:24 Bedside Glucose 110 mg/dl
[2017-04-24] MEDS: LEVOFLOXACIN 750MG / D5W IV SCH (13:51)
[2017-04-24] MEDS: TIOTROPIUM BROMIDE 5 PUFF/90 MCG INH INH SCH (13:51)
[2017-04-24] MEDS ORDERED: MAGNESIUM SULFATE 1GM / D5W 1 GM in PREMIXED IN D5W 100 ML IV ONE (15:15)
--- NOTE | 2017-04-24 16:06 | Progress Note ---
Subjective Date of Service: Apr 24, 2017. Subjective Pt evaluation today including: conversation w/ patient, chart review, lab review, review of studies, conversation w/ organizational development consultant, review of inpatient medication list Was having diffuse nosebleeding last night with fresh blood, heparin drip was to hold , generally feeling labored breathing associated with wheezing and cough which is the same as yesterday, denies fever and chill,, bilateral hands and lower extremity swelling is no same, Problem List Medical Problems: (1) COPD (chronic obstructive pulmonary disease) Status: Acute (2) Hypoxia Status: Acute (3) Lung mass Status: Acute (4) SOB (shortness of breath) Status: Acute Review of Systems Constitutional: + weakness, + fatigue Respiratory: + cough, + sputum, + wheezing, + shortness of breath, + dyspnea on exertion Cardiac: + edema Abdomen: No see HPI, No pain, No nausea, No vomiting, No diarrhea, No constipation, No GI bleeding, No problem reported Musculoskeletal: No see HPI, No joint pain, No muscle pain, No swelling, No calf pain, No problem reported Male : No see HPI, No dysuria, No urinary frequency, No incontinence, No nocturia more than once/night, No slowing stream, No hematuria, No sexual dysfunction, No problem reported Neurologic: + problem reported (Occasional confusion but mostly is awake alert and orientated) Psychiatric: No see HPI, No depression symptoms, No anhedonism, No anxiety, No insomnia, No substance abuse, No problem reported Heme: + abnormal bleeding/bruising Endo: + fatigue, No see HPI, No excessive thirst, No excessive urination, No problem reported Objective Vital Signs Date Time Temp Pulse Resp B/P (MAP) Pulse Ox O2 Delivery O2 Flow Rate FiO2 04/24/17 12:13 Oxymask 3.0 04/24/17 11:20 101 24 83 Room Air 04/24/17 08:09 87 24 97 Mask 7.0 04/24/17 07:11 36.7 116 20 143/65 (91) 95 Oxymask 3.0 04/24/17 06:00 112 24 90 Mask 5.0 04/24/17 04:43 36.8 101 22 112/61 (78) 96 Oxymask 5.0 04/24/17 00:00 36.6 112 18 128/68 (88) 90 Nasal Cannula 3.0 04/24/17 00:00 Nasal Cannula 3.0 04/23/17 20:00 Nasal Cannula 3.0 04/23/17 19:25 36.4 114 20 121/61 (81) 94 Nasal Cannula 3.0 04/23/17 18:57 112 20 90 Nasal Cannula 3.0 04/23/17 16:00 Nasal Cannula 3.0 04/23/17 15:41 106 20 96 Nasal Cannula 3.0 Physical Exam General Appearance: WD/WN, no apparent distress, + pertinent finding (Chronic ill looking, look tired,) Eyes: normal inspection, PERRL, EOMI, sclerae normal ENT: normal ENT inspection, hearing grossly normal, pharynx normal Neck: supple, no adenopathy, thyroid normal, no JVD, no carotid bruits, trachea midline Respiratory/Chest: chest non-tender, no accessory muscle use, + decreased breath sounds, + rhonchi, + wheezing Cardiovascular: regular rate, rhythm, no gallop, no JVD, no murmur Abdomen: normal bowel sounds, non tender, soft, no organomegaly, no pulsatile mass Extremities: normal range of motion, non-tender, normal inspection, no pedal edema, no calf tenderness, normal capillary refill, pelvis stable, + swelling ( Bilateral hands and lower extremities has 2-3+ edema) Neurologic/Psychiatric: seed buyer II-XII nml as tested, no motor/sensory deficits, alert, normal mood/affect, oriented x 3 Skin: normal color, warm/dry, no rash Lymphatic: no adenopathy Laboratory Results Last 24 Hours Test 04/23/17 14:48 04/23/17 16:32 04/23/17 20:06 04/23/17 21:23 White Blood Count 13.57 K/uL Red Blood Count 2.97 M/uL Hemoglobin 9.2 g/dL Hematocrit 27.1 % Mean Corpuscular Volume 91.2 fL Mean Corpuscular Hemoglobin 31.0 pg Mean Corpuscular Hemoglobin Concent 33.9 g/dl Platelet Count 141 K/uL Mean Platelet Volume 9.4 fL RDW Standard Deviation 46.2 fL RDW Coefficient of Variation 14.0 % Neutrophils % (Manual) 91.3 % Lymphocytes % (Manual) 4.3 % Monocytes % (Manual) 2.6 % Metamyelocytes % 0.9 % Myelocytes % 0.9 % Neutrophils # (Manual) 12.39 K/uL Total Absolute Neutrophils 12.39 K/uL Lymphocytes # (Manual) 0.58 K/uL Total Absolute Lymphocytes 0.58 K/uL Monocytes # (Manual) 0.35 K/uL Metamyelocytes # 0.12 K/uL Myelocytes # 0.12 K/uL Toxic Granulation 2+ Red Blood Cell Morphology Unremarkable Prothrombin Time 11.3 SECONDS Prothromb Time International Ratio 1.1 Activated Partial Thromboplast Time 35.0 SECONDS > 300.0 SECONDS Partial Thromboplastin Ratio 1.3 > 11.0 Bedside Glucose 167 mg/dl 223 mg/dl Test 04/23/17 21:24 04/23/17 23:31 04/24/17 00:18 04/24/17 01:03 Hemoglobin 8.9 g/dL Hematocrit 26.2 % Activated Partial Thromboplast Time 282.4 SECONDS 215.2 SECONDS 131.2 SECONDS Partial Thromboplastin Ratio 10.6 8.3 5.0 Test 04/24/17 01:55 04/24/17 03:07 04/24/17 07:34 04/24/17 07:53 Activated Partial Thromboplast Time 110.1 SECONDS 70.7 SECONDS 32.7 SECONDS Partial Thromboplastin Ratio 4.2 2.7 1.3 Bedside Glucose 89 mg/dl White Blood Count 17.63 K/uL Red Blood Count 2.77 M/uL Hemoglobin 8.6 g/dL Hematocrit 25.3 % Mean Corpuscular Volume 91.3 fL Mean Corpuscular Hemoglobin 31.0 pg Mean Corpuscular Hemoglobin Concent 34.0 g/dl RDW Standard Deviation 46.1 fL RDW Coefficient of Variation 14.0 % Platelet Count 150 K/uL Mean Platelet Volume 9.1 fL Sodium Level 134 mmol/L Potassium Level 4.1 mmol/L Chloride Level 101 mmol/L Carbon Dioxide Level 28 mmol/L Anion Gap 6.0 mmol/L Blood Urea Nitrogen 39 mg/dl Creatinine 1.51 mg/dl Est Creatinine Clear Calc Drug Dose 56.1 ml/min Estimated GFR () 51.6 Estimated GFR (Non- 44.5 BUN/Creatinine Ratio 26.0 Random Glucose 95 mg/dl Calcium Level 7.1 mg/dl Magnesium Level 1.6 mg/dl Test 04/24/17 11:24 Bedside Glucose 110 mg/dl Assessment and Plan 76-year-old male dated on April 14, 2017 with with neutropenic fever and pancytopenia from chemotherapy that was to treat a 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 Neutropenic fevers: Stable improving, and resolved, now has leukocytosis Pancytopenia, secondary to chemotherapy- RESOLVED Acute on chronic respiratory failure, could be because of lung cancer, pneumonia or COPD exacerbation: No significant improving, Chest CT studies lung mass possible seems shrinkage, cont treating for pneumonia or COPD, and a differential diagnosis included PE, Doppler ultrasound showed right lower extremity DVT, For possible acute PE, patient not able to have further CT studies or VQ scan, elementary librarian talk about may recommend an IVC filter Small Cell Lung Cancer: Hematology/oncology following, radiation oncology recommend radiation treatment , patient patient continued declined to do radiation treatment however he has done 2 times radiation treatment one time came, patient decline brain MRI for further evaluation of the metastatic cancer disease ECHO 03/29/17- very limited, patient could not tolerate lying flat due to SOB Possible diastolic CHF, has been getting Bumex for 2 days, has been on Bumex for 3 days, hold Bumex "do not resuscitation" Discussed with patient in bedside about the medical conditions and goals of care , basic on patient's above conditions possible very poor prognosis, Urinary discussion patient agreed that lung cancer is not curable, he is looking for keep him comfortable, no pain, supportive care and respect his dignity, and to maintain reasonable quality of life Continued [facility] stay due to: multiple IV medications needed, home environment unsafe for pt Discharge planning: uncertain
--- NOTE | 2017-04-24 16:20 | Palliative Care Progress Note ---
Palliative Care Progress Note Date of Service Apr 24, 2017. Subjective Pt evaluation today including: conversation w/ patient, conversation w/ family (daughter, Meagan, brother Michael, and another family member), physical exam, chart review, conversation w/ sap treasury consultant (Dr. Vidal, Dr. Cabral, Dr. Ambriz ) Pain: none PO Intake: tolerating diet Voiding: no voiding problems Family meeting held with patient, daughter Meagan Printing Estimator, brother Michael, another family member, Dr. Vidal, Dr. Cabral, and Dr. Ambriz. Options were discussed as far as whether or not to place a filter, discussed risk/benefit of anticoagulation, and option of comfort/hospice care discussed. Patient stated that he wants to focus on quality vs. quantity and would like to pursue hospice care. Family is tearful, but supportive and in agreement. Review of Systems Constitutional: + weakness ENT: + problem reported (nose bleed last night), No trouble swallowing Respiratory: + shortness of breath, + dyspnea on exertion, No cough Cardiac: + edema, No chest pain Abdomen: No pain, No nausea, No vomiting Male : No problem reported Psychiatric: No depression symptoms, No anxiety Objective Vital Signs Date Time Temp Pulse Resp B/P (MAP) Pulse Ox O2 Delivery O2 Flow Rate FiO2 04/24/17 12:13 Oxymask 3.0 04/24/17 11:20 101 24 83 Room Air 04/24/17 08:09 87 24 97 Mask 7.0 04/24/17 07:11 36.7 116 20 143/65 (91) 95 Oxymask 3.0 04/24/17 06:00 112 24 90 Mask 5.0 04/24/17 04:43 36.8 101 22 112/61 (78) 96 Oxymask 5.0 04/24/17 00:00 36.6 112 18 128/68 (88) 90 Nasal Cannula 3.0 04/24/17 00:00 Nasal Cannula 3.0 04/23/17 20:00 Nasal Cannula 3.0 04/23/17 19:25 36.4 114 20 121/61 (81) 94 Nasal Cannula 3.0 04/23/17 18:57 112 20 90 Nasal Cannula 3.0 Physical Exam General Appearance: no apparent distress, + obese ENT: hearing grossly normal Neck: supple, no JVD Respiratory/Chest: no respiratory distress, + decreased breath sounds, + rhonchi (coarse throughout), + pertinent finding (room air) Cardiovascular: regular rate, rhythm, + pertinent finding (+4 pitting edema to UE/LE) Abdomen: normal bowel sounds, non tender, soft Neurologic/Psychiatric: alert, normal mood/affect, oriented x 3 Skin: + pallor Laboratory Results Last 24 Hours Test 04/23/17 16:32 04/23/17 20:06 04/23/17 21:23 04/23/17 21:24 Bedside Glucose 167 mg/dl 223 mg/dl Activated Partial Thromboplast Time > 300.0 SECONDS Partial Thromboplastin Ratio > 11.0 Hemoglobin 8.9 g/dL Hematocrit 26.2 % Test 04/23/17 23:31 04/24/17 00:18 04/24/17 01:03 04/24/17 01:55 Activated Partial Thromboplast Time 282.4 SECONDS 215.2 SECONDS 131.2 SECONDS 110.1 SECONDS Partial Thromboplastin Ratio 10.6 8.3 5.0 4.2 Test 04/24/17 03:07 04/24/17 07:34 04/24/17 07:53 04/24/17 11:24 Activated Partial Thromboplast Time 70.7 SECONDS 32.7 SECONDS Partial Thromboplastin Ratio 2.7 1.3 Bedside Glucose 89 mg/dl 110 mg/dl White Blood Count 17.63 K/uL Red Blood Count 2.77 M/uL Hemoglobin 8.6 g/dL Hematocrit 25.3 % Mean Corpuscular Volume 91.3 fL Mean Corpuscular Hemoglobin 31.0 pg Mean Corpuscular Hemoglobin Concent 34.0 g/dl RDW Standard Deviation 46.1 fL RDW Coefficient of Variation 14.0 % Platelet Count 150 K/uL Mean Platelet Volume 9.1 fL Sodium Level 134 mmol/L Potassium Level 4.1 mmol/L Chloride Level 101 mmol/L Carbon Dioxide Level 28 mmol/L Anion Gap 6.0 mmol/L Blood Urea Nitrogen 39 mg/dl Creatinine 1.51 mg/dl Est Creatinine Clear Calc Drug Dose 56.1 ml/min Estimated GFR () 51.6 Estimated GFR (Non- 44.5 BUN/Creatinine Ratio 26.0 Random Glucose 95 mg/dl Calcium Level 7.1 mg/dl Magnesium Level 1.6 mg/dl Assessment and Plan Problem list: BANG Fatigue Generalized weakness COPD, presumably severe Small cell lung cancer Goals of care Palliative care recs: discussed with all of those present in family meeting, see subjective. -Patient and family aware that patient is too ill for further chemotherapy. They are also aware of risk/benefit of IVC filter placement and anticoagulation. -After discussion, patient would like to pursue hospice care upon discharge. He does not want to go through with IVC filter placement. -I did discuss with patient and family about options for hospice. In order to go home with hospice, patient would need 24/ care which the family could not provide. The only other option is to go to SNF with hospice care in which there is a daily room and board fee. Family is uncertain of financial capabilities. -Family and patient asked to have the weekend to absorb and process their decision and to talk about options. The daughter/POA, Meagan Jordan, has requested for case management to contact her on Thursday. I updated our case management assistant. -Patient currently has no pain or complaints of discomfort. I would have Roxanol on board as needed for pain/SOB in case he needs it. Thank you again for this consult. I will follow as needed. Prolonged visit. Total time spent 65 minutes with >50% of time spent at bedside with patient, family, and multidisciplinary team discussing goals of care. Palliative Performance Scale: 40 % Continued [facility] stay due to: multiple IV medications needed, home environment unsafe for pt Discharge planning: uncertain
--- NOTE | 2017-04-24 17:20 | Hematology/Oncology Prog Note ---
Hematology/Onc Progress Note Date of Service Apr 24, 2017. Diagnoses Small cell lung cancer Shortness of breath Pancytopenia Medications Medications Administered Medications (Trade) Dose Ordered Sig/Michel Route Start Time Stop Time Status Last Admin Dose Admin Sodium Chloride 1,000 ml @ 999 mls/hr Q1H1M STAT IV 04/14/17 17:53 04/14/17 18:53 DC 04/14/17 17:53 999 MLS/HR Cefepime HCl 2000 mg/Dextrose 122 ml @ 200 mls/hr NOW STAT IV 04/14/17 19:10 04/14/17 19:46 DC 04/14/17 19:35 200 MLS/HR Ondansetron HCl (Zofran Inj) 4 mg NOW STAT IV 04/14/17 19:34 04/14/17 19:35 DC 04/14/17 19:39 4 MG Levofloxacin (Levaquin / D5W) 750 mg NOW STAT IV 04/14/17 19:35 04/14/17 19:37 DC 04/14/17 19:53 750 MG Acetaminophen (Tylenol Tab) 650 mg Q4H PRN PO 04/14/17 21:00 05/14/17 20:59 04/22/17 21:29 650 MG Ondansetron HCl (Zofran Inj) 4 mg Q6H PRN IV 04/14/17 21:00 05/14/17 20:59 04/23/17 23:06 4 MG Insulin Aspart (novoLOG ASPART) SLIDING SCALE If C... ACHS SC 04/14/17 21:00 05/14/17 20:59 04/23/17 20:30 9 UNITS Albuterol (Ventolin Hfa Inhaler) 2 puffs Q4H INH 04/15/17 00:00 04/16/17 13:55 DC 04/16/17 11:48 2 PUFFS Allopurinol (Zyloprim Tab) 200 mg DAILY PO 04/15/17 08:00 04/15/17 16:40 DC 04/15/17 07:49 200 MG Amlodipine Besylate (Norvasc Tab) 5 mg QAM PO 04/15/17 08:00 05/15/17 08:59 04/24/17 10:41 5 MG Aspirin (Ecotrin Tab) 81 mg DAILY PO 04/15/17 08:00 05/15/17 08:59 04/24/17 10:41 81 MG Atorvastatin Calcium (Lipitor Tab) 40 mg DAILY PO 04/15/17 08:00 05/15/17 08:59 04/24/17 10:41 40 MG Budesonide/ Formoterol Fumarate (Symbicort 160/ 4.5 Inh) 2 puffs BID INH 04/15/17 08:00 05/15/17 07:59 04/24/17 10:41 2 PUFFS Furosemide (Lasix Tab) 20 mg DAILY PO 04/15/17 08:00 05/15/17 08:59 Future Hold 04/18/17 07:40 20 MG Hydroxyzine HCl (Vistaril Tab) 25 mg HSZ PRN PO 04/14/17 21:00 04/18/17 15:17 DC 04/17/17 20:57 25 MG Tiotropium [place] (Spiriva Handihaler Inhaler) 1 puff QAM INH 04/15/17 08:00 05/15/17 08:59 04/24/17 13:51 1 PUFF Vancomycin HCl 2750 mg/Sodium Chloride 555 ml @ 200 mls/hr NOW ONCE IV 04/14/17 23:00 04/15/17 01:46 DC 04/14/17 22:58 200 MLS/HR Piperacillin Sod/ Tazobactam Sod 4.5 gm/Dextrose 120 ml @ 30 mls/hr Q8H IV 04/15/17 04:00 04/17/17 12:43 DC 04/17/17 12:04 30 MLS/HR Vancomycin HCl (Vancomycin Oral Soln) 250 mg QID PO 04/14/17 23:00 04/15/17 06:20 DC 04/14/17 23:04 250 MG Albuterol/ Ipratropium (Duoneb) 3 ml QIDR INH 04/15/17 08:00 05/15/17 07:59 04/24/17 11:19 3 ML Guaifenesin (Organidin Nr Tab) 200 mg Q4H PO 04/15/17 00:00 04/21/17 11:58 DC 04/21/17 08:44 200 MG Methylprednisolone Sodium Succinate 60 mg/Syringe 0.96 ml @ 1.5 mls/min Q8H IV 04/15/17 00:00 04/16/17 11:15 DC 04/16/17 07:49 1.5 MLS/MIN Magnesium Sulfate 1 gm/Prmx 100 ml @ 100 mls/hr TODAY@0000,2300 IV 04/14/17 23:00 04/15/17 00:59 DC 04/15/17 02:17 100 MLS/HR Piperacillin Sod/ Tazobactam Sod 4.5 gm/Dextrose 120 ml @ 200 mls/hr NOW ONCE IV 04/14/17 22:30 04/14/17 23:05 DC 04/14/17 22:57 200 MLS/HR Insulin Glargine (Lantus Solostar Pen) 12 units BID SC 04/14/17 21:00 04/15/17 14:40 DC 04/15/17 08:03 12 UNITS Raspberry (Raspberry Syrup 5ml Cup) 5 ml QID PO 04/14/17 23:00 04/15/17 06:20 DC 04/14/17 23:04 5 ML Heparin Sodium (Porcine) (Heparin 100 Unit/ml 5ml Flush) 5 ml PRN PRN IV 04/15/17 04:00 05/15/17 03:59 04/23/17 23:06 5 ML Filgrastim (Neupogen Sq) 480 mcg DAILY SC 04/15/17 14:00 04/18/17 08:13 DC 04/17/17 10:10 480 MCG Insulin Glargine (Lantus Solostar Pen) 40 units BID SC 04/15/17 20:00 04/17/17 10:49 DC 04/17/17 08:59 40 UNITS Enteral Nutritional Formula (Boost Glucose Control) 1 can BID PO 04/15/17 20:00 04/23/17 14:46 DC 04/20/17 21:01 1 CAN Potassium Chloride (Klor-Con Tab) 40 meq BID PO 04/16/17 20:00 04/19/17 14:15 DC 04/17/17 08:39 40 MEQ Potassium Chloride (Klor-Con Tab) 40 meq 0930 ONCE PO 04/16/17 09:30 04/16/17 09:31 DC 04/16/17 11:48 40 MEQ Furosemide 20 mg/ Syringe 2 ml @ 4 mls/min ONE ONCE IV 04/16/17 09:30 04/16/17 09:31 DC 04/16/17 11:47 4 MLS/MIN Prednisone (PredniSONE TAB) 40 mg Taper DAILY PO 04/17/17 08:00 05/04/17 07:59 04/24/17 10:41 40 MG Prednisone (PredniSONE TAB) 60 mg NOW ONCE PO 04/16/17 12:00 04/16/17 12:01 DC 04/16/17 12:05 60 MG Albuterol (Ventolin Hfa Inhaler) 2 puffs Q4H PRN INH 04/16/17 14:00 05/15/17 00:00 04/20/17 08:17 2 PUFFS Insulin Glargine (Lantus Solostar Pen) 40 units DAILY@0800 SC 04/18/17 08:00 04/20/17 15:47 DC 04/20/17 08:25 40 UNITS Insulin Glargine (Lantus Solostar Pen) 20 units HS SC 04/17/17 21:00 04/20/17 15:47 DC 04/19/17 20:49 20 UNITS Furosemide 20 mg/ Syringe 2 ml @ 4 mls/min ONE ONCE IV 04/17/17 17:15 04/17/17 17:16 DC 04/17/17 17:46 4 MLS/MIN Sodium Chloride ([place] Nasal [place]) 225 sprays STK-MED ONCE .ROUTE 04/17/17 20:59 04/17/17 21:00 DC 04/17/17 21:09 225 SPRAYS Furosemide 40 mg/ Syringe 4 ml @ 4 mls/min TODAY@0830 ONCE IV 04/18/17 08:30 04/18/17 08:31 DC 04/18/17 09:12 4 MLS/MIN Hydroxyzine HCl (Vistaril Tab) 50 mg HSZ PRN PO 04/18/17 15:30 05/14/17 20:59 04/23/17 22:39 50 MG Enoxaparin Sodium (Lovenox Inj) 40 mg Q24H SQ 04/18/17 21:00 04/23/17 14:32 DC 04/22/17 21:23 40 MG Potassium Chloride ([place]) 40 meq QAM PO 04/20/17 08:00 05/20/17 07:59 04/20/17 11:39 40 MEQ Bumetanide 2 mg/ Syringe 8 ml @ 4 mls/min TODAY@1430 ONCE IV 04/19/17 14:30 04/19/17 14:31 DC 04/19/17 14:37 4 MLS/MIN Trazodone HCl (Desyrel Tab) 25 mg 0315 ONCE PO 04/20/17 03:15 04/20/17 03:19 DC 04/20/17 03:24 25 MG Bumetanide 2 mg/ Syringe 8 ml @ 4 mls/min 1345 ONCE IV 04/20/17 13:45 04/20/17 13:46 DC 04/20/17 14:37 4 MLS/MIN Insulin Glargine (Lantus Solostar Pen) 16 units HS DE 04/20/17 21:00 04/21/17 12:01 DC 04/20/17 21:04 16 UNITS Insulin Glargine (Lantus Solostar Pen) 36 units DAILY@0800 DE 04/21/17 08:00 04/21/17 12:03 DC 04/21/17 08:57 36 UNITS Insulin Glargine (Lantus Solostar Pen) 13 units HS DE 04/21/17 21:00 05/21/17 20:59 04/23/17 20:30 13 UNITS Insulin Glargine (Lantus Solostar Pen) 30 units DAILY@0800 DE 04/22/17 08:00 05/22/17 07:59 Future hold 04/24/17 10:43 30 UNITS Bumetanide 2 mg/ Syringe 8 ml @ 4 mls/min ONE ONCE IV 04/21/17 14:00 04/21/17 14:01 DC 04/21/17 14:29 4 MLS/MIN Vancomycin HCl 2750 mg/Sodium Chloride 555 ml @ 200 mls/hr NOW ONCE IV 04/22/17 11:45 04/22/17 14:31 DC 04/22/17 11:46 200 MLS/HR Vancomycin HCl 1500 mg/Sodium Chloride 530 ml @ 200 mls/hr Q18H IV 04/23/17 06:00 04/30/17 05:59 04/24/17 00:15 200 MLS/HR Levofloxacin 750 mg/Prmx 150 ml @ 100 mls/hr Q24H IV 04/22/17 13:00 04/29/17 12:59 04/24/17 13:51 100 MLS/HR Dexamethasone/ Nystatin/ Diphenhydramine HCl/Sucrose/ Microcrystalline Cellulose/Barcode Q6 PO 04/22/17 18:00 05/22/17 17:59 04/24/17 13:51 5 ML Heparin Sodium/ Dextrose 500 ml @ 28 mls/hr [id number] IV 04/23/17 15:00 04/24/17 11:51 DC 04/23/17 15:24 34 MLS/HR Heparin Sodium (Porcine) 8000 unit/Syringe 8 ml @ 10 mls/min NOW ONCE IV 04/23/17 15:00 04/23/17 15:01 DC 04/23/17 15:24 10 MLS/MIN Oxymetazoline HCl (Afrin 0.05% Nasal [place]) 1 sprays NOW ONCE KENDRICK 04/24/17 05:15 04/24/17 05:16 DC 04/24/17 05:20 3 SPRAYS Sodium Chloride ([place] Nasal [place]) 2 sprays NOW ONCE NA 04/24/17 11:00 04/24/17 11:25 DC 04/24/17 14:12 2 SPRAYS Magnesium Sulfate 1 gm/Prmx 100 ml @ 100 mls/hr NOW ONCE IV 04/24/17 15:15 04/24/17 16:14 DC 04/24/17 16:26 100 MLS/HR Subjective Mr. Jordan looks little different from the last time I saw him. He is uncomfortable breathing, though otherwise he is calm and does not appear to be in pain. Review of Systems: Constitutional: + weakness, + fatigue Respiratory: + shortness of breath Cardiovascular: No chest pain Abdomen: No pain Musculoskeletal: No joint pain, No muscle pain Heme: No abnormal bleeding/bruising Vital Signs Vital Signs Past 12 Hours Date Time Temp Pulse Resp B/P (MAP) Pulse Ox O2 Delivery O2 Flow Rate FiO2 04/24/17 16:20 36.4 101 20 142/74 (96) 100 Oxymask 3.0 04/24/17 12:13 Oxymask 3.0 04/24/17 11:20 101 24 83 Room Air 04/24/17 08:09 87 24 97 Mask 7.0 04/24/17 07:11 36.7 116 20 143/65 (91) 95 Oxymask 3.0 04/24/17 06:00 112 24 90 Mask 5.0 Physical Exam Constitutional: General Apperance: obese Level of Distress: mild distress Psychiatric: Mental Status: active & alert Orientation: oriented except where noted Lungs: Respiratory Effort: tachypneic, use of accessory muscles Auscuitation: breath sounds normal Cardiovascular: Heart Auscultation: RRR Abdomen: Inspection & Palpation: soft, no tenderness, guarding & rebound Extremities: pertinent finding (stable chronic venous stasis changes) Assessment & Plan Pulmonology were consulted and Dr. Cabral got an ABG which reveals an A-a O2 gradient without any significant CO2 retention. Given his cancer history, obesity, and immobility, he strongly suspects a pulmonary embolism as the cause. Overnight, anticoagulation was attempted, but he developed severe epistaxis that almost led to airway issues. His family has gathered today to discuss goals of care and I participated in this conversation, along with Dr. Vidal (his hospitalist), Dr. Cabral, and Tierra Johnson from palliative care. We cannot safely treat his PE and his prospects for recovery, particularly to the kind of PS that would be required to continue treating his cancer, are poor. Beyond that, his cancer actually responded nicely to treatment and yet his symptoms did not improve at all, arguing that further treatment has no palliative value. Finally, he tolerated chemotherapy very poorly, with prolonged low counts, nausea, and fatigue. Overall, I think he is a poor candidate for further anti-cancer therapy. We had a long conversation about hospice care. We explained the goals, benefits, and implications of such a decision. We discussed that this would require opting to forgo potentially life-extending therapies. By the end of our conversation, the patient expressed a willingness to proceed with hospice. His daughter and the rest of his family concurred. His primary team and palliative care will proceed with hospice arrangements. I would be happy to be his physician of record, if necessary. I also left the door open for him to reach out at any time if issues, concerns, or questions come up.
[2017-04-24] MEDS ORDERED: VANCOMYCIN TROUGH ONE (17:30)
[2017-04-24] MEDS: MAGNESIUM OXIDE 400 MG TAB PO SCH (22:19)
[2017-04-24] MEDS: hydrOXYzine HCL 25 MG TAB PO PRN (22:22)
[2017-04-25] VITALS (11 sets, daily range): BP systolic 108–186; BP diastolic 64–76; PULSE 83–100; TEMP 36.3–36.5; O2SAT 92–99
[2017-04-25] MEDS: ALBUT/IPRATROP 3MG/0.5MG NEB 3 ML VIAL INH SCH ×5 (05:00→21:46)
[2017-04-25] MEDS: DEXAMETHASONE CONC SOLN 3.75 MG, NYSTATIN SUSP 30 ML, DiphenhydrAMINE HCL SYRUP 300 MG,... PO SCH ×25 (06:00→23:25)
[2017-04-25 06:34] LABS: HEMATOCRIT 25.2 % (42-52); HEMOGLOBIN 8.5 g/dL (14.0-18.0); MEAN CELL VOLUME 92.3 fL (80-100); MEAN CORPUSCULAR HEMOGLOBIN 31.1 pg (25-34); MEAN CORPUSCULAR HGB CONC 33.7 g/dl (32-36); MEAN PLATELET VOLUME 9.1 fL (7.4-10.4); PLATELET COUNT 166 K/uL (130-400); RED CELL DISTRIBUTION WIDTH CV 14.3 % (11.5-14.5); RED CELL DISTRIBUTION WIDTH SD 47.3 fL (36.4-46.3); WHITE BLOOD COUNT 19.86 K/uL (4.8-10.8)
[2017-04-25 06:53] LABS: CALCIUM 7.5 mg/dl (8.5-10.1); CREATININE 1.21 mg/dl (0.60-1.40); POTASSIUM 4.5 mmol/L (3.5-5.1)
[2017-04-25] MEDS: INSULIN ASPART 100 UNITS/ML 3 ML PEN SC SCH ×4 (08:40→21:36)
[2017-04-25] MEDS: POTASSIUM CHLORIDE 20 MEQ/15 ML UDC PO SCH (08:40)
[2017-04-25] MEDS: MAGNESIUM OXIDE 400 MG TAB PO SCH ×2 (08:41→19:45)
[2017-04-25] MEDS: TIOTROPIUM BROMIDE 5 PUFF/90 MCG INH INH SCH (08:41)
[2017-04-25] MEDS: BUDESONIDE/FORMOTEROL FUMARATE 160/4.5 60 PUFFS/INHALER INH SCH ×2 (08:41→19:44)
[2017-04-25] MEDS: AMLODIPINE BESYLATE 5 MG TAB PO SCH (08:41)
[2017-04-25] MEDS: ATORVASTATIN 20 MG TAB PO SCH (08:42)
[2017-04-25] MEDS: ASPIRIN 81 MG ECTAB PO SCH (08:43)
[2017-04-25] MEDS: INSULIN GLARGINE SOLOSTAR 100 UNITS/ML 3 ML PEN SC SCH ×2 (08:45→21:37)
--- NOTE | 2017-04-25 09:46 | Pharmacy Progress Note ---
Pharmacy Abx Dose Short Note Date of Service Apr 25, 2017. Assessment & Plan Item Value Date Time Vancomycin Level Trough 19.9 mcg/ml 04/24/17 1723 Creatinine 1.21 mg/dl # 04/25/17 0611 Est Creatinine Clear Calc Drug Dose 70.0 ml/min 04/25/17 0611 Creatinine 1.51 mg/dl H 04/24/17 0753 Est Creatinine Clear Calc Drug Dose 56.1 ml/min 04/24/17 0753 Plan Vancomycin * Trough level of 19.9 mcg/mL is therapeutic. Of note, this is not Css. It is reasonable to slightly decrease dose or extend dosing interval. * MAINTENANCE DOSE: Change to VANC 1500mg (~11mg/kg) IV every 24 hours (was q 18h) * Goal VANC trough level: 15 to 20 mcg/mL * Trough level reordered for: 04/27/17-1800 dose Pharmacy will continue to follow and will adjust dose/frequency as necessary. Thank you.
[2017-04-25] MEDS: ONDANSETRON INJ 2 MG/ML 2 ML VIAL IV PRN (12:50)
[2017-04-25] MEDS: LEVOFLOXACIN 750MG / D5W IV SCH (12:55)
--- NOTE | 2017-04-25 14:28 | Progress Note ---
Subjective Date of Service: Apr 25, 2017. Subjective Pt evaluation today including: conversation w/ patient, conversation w/ family , physical exam, chart review, lab review, review of studies, conversation w/ insurance healthcare consultant, review of inpatient medication list Voiding: quispe catheter in place Doing fair, eating a little, still generalized tired and weakness, still has 3+ edema bilateral hands and lower extremities, associated with wheezing, has bowel movement yesterday Problem List Medical Problems: (1) COPD (chronic obstructive pulmonary disease) Status: Acute (2) Hypoxia Status: Acute (3) Lung mass Status: Acute (4) SOB (shortness of breath) Status: Acute Review of Systems Constitutional: + weakness, + fatigue, No fever, No chills, No sweats, No weight loss, No problem reported Eyes: No worsening of vision, No eye pain, No redness, No discharge, No diplopia ENT: + problem reported (Occasional blood clots in bilateral nose), No hearing loss, No unusual epistaxis, No nasal symptoms, No sore throat, No tinnitus, No dental problems, No trouble swallowing Respiratory: + cough, + wheezing, + shortness of breath, + dyspnea on exertion , + dyspnea at rest (Mild), No sputum, No hemoptysis Cardiac: + edema, No chest pain, No orthopnea, No PND, No claudication, No palpitations Abdomen: No pain, No nausea, No vomiting, No diarrhea, No constipation Musculoskeletal: No joint pain, No muscle pain, No swelling, No calf pain Male : No dysuria, No urinary frequency, No incontinence, No nocturia more than once/night, No slowing stream, No hematuria Neurologic: No memory loss, No paralysis, No weakness, No numbness/tingling, No vertigo, No balance problems Psychiatric: No depression symptoms, No anhedonism, No anxiety, No insomnia, No substance abuse Heme: No abnormal bleeding/bruising, No clotting problems, No swollen lymph nodes, No night sweats Endo: No fatigue, No excessive thirst, No excessive urination Skin: No rash, No itch, No new/changing skin lesions, No color change, No bleeding Objective Vital Signs Date Time Temp Pulse Resp B/P (MAP) Pulse Ox O2 Delivery O2 Flow Rate FiO2 04/25/17 11:35 86 22 96 Mask 3.0 04/25/17 11:13 36.4 96 24 145/66 (92) 92 Oxymask 3.0 04/25/17 11:04 Oxymask 3.0 04/25/17 07:30 36.3 88 28 144/74 (97) 98 Nasal Cannula 3.0 04/25/17 07:19 89 24 97 Mask 3.0 04/25/17 05:00 83 24 98 Mask 3.0 04/25/17 04:00 36.4 85 28 186/68 (107) 97 3.0 04/25/17 00:40 Oxymask 3.0 04/25/17 00:00 36.5 93 24 164/76 (105) 99 3.0 04/24/17 19:30 36.8 109 24 142/68 (92) 95 Oxymask 3.0 04/24/17 19:03 97 24 97 Mask 3.0 04/24/17 16:20 36.4 101 20 142/74 (96) 100 Oxymask 3.0 04/24/17 16:00 Nasal Cannula Mask CPAP Physical Exam General Appearance: WD/WN, no apparent distress, + obese Eyes: normal inspection, PERRL, EOMI, sclerae normal ENT: normal ENT inspection, hearing grossly normal, pharynx normal Neck: supple, no adenopathy, thyroid normal, no JVD, no carotid bruits, trachea midline Respiratory/Chest: chest non-tender, no accessory muscle use, + decreased breath sounds, + wheezing Cardiovascular: regular rate, rhythm, no gallop, no JVD, no murmur, + pertinent finding (2-3+) Abdomen: normal bowel sounds, non tender, soft, no organomegaly, no pulsatile mass Extremities: normal range of motion, non-tender, no pedal edema, no calf tenderness, normal capillary refill, pelvis stable, + swelling Neurologic/Psychiatric: 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 tested, no motor/sensory deficits, alert, normal mood/affect, oriented x 3 Skin: normal color, warm/dry, no rash Lymphatic: no adenopathy Laboratory Results Last 24 Hours Test 04/24/17 16:56 04/24/17 17:23 04/24/17 20:49 04/25/17 06:11 Bedside Glucose 243 mg/dl 314 mg/dl Vancomycin Level Trough 19.9 mcg/ml White Blood Count 19.86 K/uL Red Blood Count 2.73 M/uL Hemoglobin 8.5 g/dL Hematocrit 25.2 % Mean Corpuscular Volume 92.3 fL Mean Corpuscular Hemoglobin 31.1 pg Mean Corpuscular Hemoglobin Concent 33.7 g/dl RDW Standard Deviation 47.3 fL RDW Coefficient of Variation 14.3 % Platelet Count 166 K/uL Mean Platelet Volume 9.1 fL Sodium Level 134 mmol/L Potassium Level 4.5 mmol/L Chloride Level 101 mmol/L Carbon Dioxide Level 28 mmol/L Anion Gap 5.0 mmol/L Blood Urea Nitrogen 33 mg/dl Creatinine 1.21 mg/dl Est Creatinine Clear Calc Drug Dose 70.0 ml/min Estimated GFR () 67.5 Estimated GFR (Non- 58.2 BUN/Creatinine Ratio 26.9 Random Glucose 161 mg/dl Calcium Level 7.5 mg/dl Test 04/25/17 07:46 04/25/17 11:27 Bedside Glucose 160 mg/dl 165 mg/dl Assessment and Plan 76-year-old male dated on April 14, 2017 with with neutropenic fever and pancytopenia from chemotherapy that was to treat a 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, no mass is some increased however his general condition is declining, currently is agreeable for palliative care, planning [facility] hospice care Neutropenic fevers on admission: Stable improving, and resolved, now has leukocytosis Pancytopenia, secondary to chemotherapy- RESOLVED Acute on chronic respiratory failure, likely secondary to multiple factors, such as lung cancer, pneumonia or COPD exacerbation, and possible acute PE No significant improving, Chest CT studies lung mass possible shrinkage, cont treating for pneumonia or COPD, and a differential diagnosis included PE, Doppler ultrasound showed right lower extremity DVT, which increased the likelihood of acute PE For possible acute PE, patient not able to have further CT studies or VQ scan, patient and family declined IVC filter, also see below Small Cell Lung Cancer: Hematology/oncology, and radiation oncology has been on the case Patient has been continued declined to do radiation treatment, however he has done 2 times radiation treatment one time came, patient decline brain MRI for further evaluation of the metastatic cancer disease, possible no further chemo radiation treatment because no cooperative care change to palliative care also see below ECHO 03/29/17- very limited, patient could not tolerate lying flat due to SOB Possible diastolic CHF, has been getting Bumex for 2 days, has been on Bumex for 3 days, hold Bumex "do not resuscitation" Family meetings and several discussions with oncologist, accounts payable processor, palliative care with patient, daughter, brothers and other family members in bedside , there were huge discussion and counseling about patient's conditions and care plan, such as the medical conditions and goals of care, basic on patient's above conditions possible very poor prognosis, currently is palliative care, keep comfortable, no pain, and supportive care, and planning to [facility] care Continued [facility] stay due to: multiple IV medications needed, home environment unsafe for pt Discharge planning: uncertain
[2017-04-25] MEDS ORDERED: VANCOMYCIN IV 1,500 MG in SODIUM CHLORIDE 0.9% 500ML 500 ML IV SCH (18:00)
[2017-04-25] MEDS: hydrOXYzine HCL 25 MG TAB PO PRN (23:27)
[2017-04-26] VITALS (13 sets, daily range): BP systolic 119–144; BP diastolic 61–76; PULSE 89–107; TEMP 36.4–36.7; O2SAT 90–100
[2017-04-26] MEDS: ALBUT/IPRATROP 3MG/0.5MG NEB 3 ML VIAL INH SCH ×5 (00:45→19:03)
[2017-04-26] MEDS: DEXAMETHASONE CONC SOLN 3.75 MG, NYSTATIN SUSP 30 ML, DiphenhydrAMINE HCL SYRUP 300 MG,... PO SCH ×5 (06:00)
[2017-04-26 06:21] LABS: HEMATOCRIT 24.5 % (42-52); HEMOGLOBIN 8.1 g/dL (14.0-18.0); MEAN CELL VOLUME 92.8 fL (80-100); MEAN CORPUSCULAR HEMOGLOBIN 30.7 pg (25-34); MEAN CORPUSCULAR HGB CONC 33.1 g/dl (32-36); MEAN PLATELET VOLUME 9.2 fL (7.4-10.4); PLATELET COUNT 219 K/uL (130-400); RED CELL DISTRIBUTION WIDTH CV 14.1 % (11.5-14.5); RED CELL DISTRIBUTION WIDTH SD 47.1 fL (36.4-46.3); WHITE BLOOD COUNT 16.66 K/uL (4.8-10.8)
[2017-04-26 06:39] LABS: CALCIUM 7.8 mg/dl (8.5-10.1); CREATININE 1.22 mg/dl (0.60-1.40); POTASSIUM 4.7 mmol/L (3.5-5.1)
[2017-04-26] MEDS: POTASSIUM CHLORIDE 20 MEQ/15 ML UDC PO SCH (06:53)
[2017-04-26] MEDS: ASPIRIN 81 MG ECTAB PO SCH (08:00)
[2017-04-26] MEDS: TIOTROPIUM BROMIDE 5 PUFF/90 MCG INH INH SCH (08:20)
[2017-04-26] MEDS: ATORVASTATIN 20 MG TAB PO SCH (08:21)
[2017-04-26] MEDS: AMLODIPINE BESYLATE 5 MG TAB PO SCH (08:21)
[2017-04-26] MEDS: BUDESONIDE/FORMOTEROL FUMARATE 160/4.5 60 PUFFS/INHALER INH SCH ×2 (08:21→20:03)
[2017-04-26] MEDS: MAGNESIUM OXIDE 400 MG TAB PO SCH ×2 (08:21→20:00)
[2017-04-26] MEDS ORDERED: MICONAZOLE NITRATE POWDER 43 GM ONE (08:25)
[2017-04-26] MEDS: INSULIN ASPART 100 UNITS/ML 3 ML PEN SC SCH ×4 (08:28→20:11)
[2017-04-26] MEDS: INSULIN GLARGINE SOLOSTAR 100 UNITS/ML 3 ML PEN SC SCH ×2 (08:28→20:12)
[2017-04-26] MEDS: ONDANSETRON INJ 2 MG/ML 2 ML VIAL IV PRN ×2 (08:33→18:09)
[2017-04-26] MEDS ORDERED: NURSING VERBAL MED ORDER ONE (09:45)
[2017-04-26] MEDS: LIDOCAINE HCL 2% VISCOUS SOLN 60 ML, DiphenhydrAMINE HCL SYRUP 150 MG, ALUMINUM/MAGNESI... MT SCH ×12 (12:49→20:06)
[2017-04-26] MEDS: LEVOFLOXACIN 750 MG TAB PO SCH (12:50)
--- NOTE | 2017-04-26 15:35 | Progress Note ---
Subjective Date of Service: Apr 26, 2017. Subjective Pt evaluation today including: conversation w/ patient, conversation w/ family , physical exam, chart review, lab review, review of studies, conversation w/ specialty sales consultant, review of inpatient medication list Voiding: quispe catheter in place Tired, in bed, OxiMask oxygen , mild labored breathing, associated with wheezing , some wet cough, decreased appetite Problem List Medical Problems: (1) COPD (chronic obstructive pulmonary disease) Status: Acute (2) Hypoxia Status: Acute (3) Lung mass Status: Acute (4) SOB (shortness of breath) Status: Acute Review of Systems Constitutional: + weakness, + fatigue, No fever, No chills ENT: No hearing loss Respiratory: + cough, + sputum, + wheezing, + shortness of breath, + dyspnea on exertion Cardiac: No chest pain Breast: No see HPI Abdomen: No see HPI, No pain, No nausea, No vomiting, No diarrhea, No constipation, No GI bleeding, No problem reported Musculoskeletal: No see HPI, No joint pain, No muscle pain, No swelling, No calf pain, No problem reported Male : No see HPI, No dysuria, No urinary frequency, No incontinence, No nocturia more than once/night, No slowing stream, No hematuria, No sexual dysfunction, No problem reported Psychiatric: No see HPI, No depression symptoms, No anhedonism, No anxiety, No insomnia, No substance abuse, No problem reported Heme: No see HPI, No abnormal bleeding/bruising, No clotting problems, No swollen lymph nodes, No night sweats, No problem reported Objective Vital Signs Date Time Temp Pulse Resp B/P (MAP) Pulse Ox O2 Delivery O2 Flow Rate FiO2 04/26/17 14:21 92 24 94 Mask 3.0 04/26/17 11:27 36.5 101 24 134/64 (87) 93 Nasal Cannula 2.0 04/26/17 11:02 89 24 98 Mask 5.0 04/26/17 10:17 Oxymask 3.0 04/26/17 07:32 93 22 90 Room Air 04/26/17 07:26 36.5 91 20 143/64 (90) 100 Oxymask 5.0 04/26/17 05:56 36.5 106 24 141/76 (97) 92 Mask 5.0 21 04/26/17 04:33 36.5 106 24 141/76 (97) 92 Mask 5.0 04/26/17 00:45 97 26 98 Mask 3.0 04/26/17 00:15 Oxymask 3.0 04/26/17 00:00 36.7 89 28 134/66 (88) 97 Mask 5.0 04/25/17 21:47 86 24 96 Mask 3.0 04/25/17 20:00 Oxymask 3.0 04/25/17 19:38 36.4 94 28 108/64 (79) 97 Nasal Cannula 3.0 04/25/17 18:48 91 28 95 Mask 3.0 04/25/17 16:15 36.3 100 32 131/69 (89) 93 Nasal Cannula 3.0 Physical Exam General Appearance: WD/WN, no apparent distress, + obese, + pertinent finding ( Tired, chronically ill looking,) Eyes: normal inspection, PERRL, EOMI, sclerae normal ENT: normal ENT inspection, hearing grossly normal, pharynx normal Neck: supple, no adenopathy, thyroid normal, no JVD, no carotid bruits, trachea midline Respiratory/Chest: chest non-tender, normal breath sounds, no respiratory distress, no accessory muscle use, + decreased breath sounds, + rales, + rhonchi , + wheezing Cardiovascular: regular rate, rhythm, no gallop, no JVD, no murmur, + pertinent finding (3-4+ edema in bilateral hands and lower extremities) Abdomen: normal bowel sounds, non tender, soft, no organomegaly, no pulsatile mass Extremities: normal range of motion, non-tender, normal inspection, no calf tenderness, normal capillary refill, pelvis stable, + swelling Neurologic/Psychiatric: 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 nml as tested, no motor/sensory deficits, alert, normal mood/affect, oriented x 3 Skin: normal color, warm/dry, no rash Lymphatic: no adenopathy Laboratory Results Last 24 Hours Test 04/25/17 17:03 04/25/17 20:31 04/26/17 05:14 04/26/17 07:41 Bedside Glucose 239 mg/dl 207 mg/dl 186 mg/dl White Blood Count 16.66 K/uL Red Blood Count 2.64 M/uL Hemoglobin 8.1 g/dL Hematocrit 24.5 % Mean Corpuscular Volume 92.8 fL Mean Corpuscular Hemoglobin 30.7 pg Mean Corpuscular Hemoglobin Concent 33.1 g/dl RDW Standard Deviation 47.1 fL RDW Coefficient of Variation 14.1 % Platelet Count 219 K/uL Mean Platelet Volume 9.2 fL Sodium Level 136 mmol/L Potassium Level 4.7 mmol/L Chloride Level 101 mmol/L Carbon Dioxide Level 30 mmol/L Anion Gap 5.0 mmol/L Blood Urea Nitrogen 31 mg/dl Creatinine 1.22 mg/dl Est Creatinine Clear Calc Drug Dose 69.8 ml/min Estimated GFR () 66.8 Estimated GFR (Non- 57.6 BUN/Creatinine Ratio 25.7 Random Glucose 100 mg/dl Calcium Level 7.8 mg/dl Test 04/26/17 11:46 Bedside Glucose 131 mg/dl Assessment and Plan 76-year-old male admitted on April 14, 2017 with with neutropenic fever and pancytopenia from chemotherapy that was to treat a 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, lung mass is some decreased however his general condition is declining, currently is agreeable for palliative care, planning [facility] Neutropenic fevers on admission: Stable improving, and resolved, now has leukocytosis Pancytopenia, secondary to chemotherapy- RESOLVED Acute on chronic respiratory failure, likely secondary to multiple factors, such as lung cancer, pneumonia , COPD exacerbation, and possible acute PE, hypoventilation syndrome No significant improving, Chest CT studies lung mass possible shrinkage, CT of chest did show some possible inflammation, cont treating for pneumonia or COPD, and a differential diagnosis included PE, Doppler ultrasound showed right lower extremity DVT, which increased the likelihood of acute PE For possible acute PE, patient not able to have further CT studies or VQ scan, patient and family declined IVC filter, also see below For right lower extremity DVT, heparin drip was started and stop, because he not able to tolerate because of nosebleeding from heparin, and options such as IVC filter was discussed with patient and family, patient had to pick out hand hospice care and no place Follow possible pneumonia, has been on IV antibiotics of Vanco and Zosyn since April 15, later changed to oral Levaquin, totally 12 days so far, possible continue Levaquin for 2 days more only Small Cell Lung Cancer: Hematology/oncology, and radiation oncology has been on the case Patient has been continued declined to do radiation treatment, however he has done 2 times radiation treatment one time came, patient decline brain MRI for further evaluation of the metastatic cancer disease, possible no further chemo radiation treatment because no cooperative care change to palliative care also see below ECHO 03/29/17- very limited, patient could not tolerate lying flat due to SOB Possible diastolic CHF, has been getting Bumex for 2 days, has been on Bumex for 3 days, hold Bumex, and not restart Lasix 20 mg p.o. daily which possible helping for the symptom of difficult breathing "do not resuscitation" Family meetings and several discussions with oncologist, field supervisor seed production, palliative care with patient, daughter, brothers and other family members in bedside , there were huge discussion and counseling about patient's conditions and care plan, such as the medical conditions and goals of care, basic on patient's above conditions possible very poor prognosis, currently is palliative care, keep comfortable, no pain, and supportive care, and planning [facility] , then hospice care Continued [facility] stay due to: multiple IV medications needed, home environment unsafe for pt Discharge planning: [facility] facility, uncertain
[2017-04-26] MEDS: hydrOXYzine HCL 25 MG TAB PO PRN (21:49)
[2017-04-27] VITALS (12 sets, daily range): BP systolic 135–156; BP diastolic 70–79; PULSE 91–105; TEMP 36.4–36.8; O2SAT 90–100
[2017-04-27] MEDS: ONDANSETRON INJ 2 MG/ML 2 ML VIAL IV PRN (01:14)
[2017-04-27 06:16] LABS: CALCIUM 7.9 mg/dl (8.5-10.1); CREATININE 1.32 mg/dl (0.60-1.40); PHOSPHORUS 3.4 mg/dl (2.5-4.9); POTASSIUM 4.9 mmol/L (3.5-5.1)
[2017-04-27] MEDS: ALBUT/IPRATROP 3MG/0.5MG NEB 3 ML VIAL INH SCH ×4 (07:36→19:07)
[2017-04-27] MEDS: LIDOCAINE HCL 2% VISCOUS SOLN 60 ML, DiphenhydrAMINE HCL SYRUP 150 MG, ALUMINUM/MAGNESI... MT SCH ×16 (08:35→21:38)
[2017-04-27] MEDS: BUDESONIDE/FORMOTEROL FUMARATE 160/4.5 60 PUFFS/INHALER INH SCH ×2 (08:35→21:35)
[2017-04-27] MEDS: AMLODIPINE BESYLATE 5 MG TAB PO SCH (08:36)
[2017-04-27] MEDS: FUROSEMIDE 20 MG TAB PO SCH (08:36)
[2017-04-27] MEDS: ASPIRIN 81 MG ECTAB PO SCH (08:36)
[2017-04-27] MEDS: TIOTROPIUM BROMIDE 5 PUFF/90 MCG INH INH SCH (08:37)
[2017-04-27] MEDS: MAGNESIUM OXIDE 400 MG TAB PO SCH ×2 (08:38→21:36)
[2017-04-27] MEDS: POTASSIUM CHLORIDE 20 MEQ/15 ML UDC PO SCH (08:38)
[2017-04-27] MEDS: ATORVASTATIN 20 MG TAB PO SCH (08:39)
[2017-04-27] MEDS: INSULIN ASPART 100 UNITS/ML 3 ML PEN SC SCH ×4 (08:40→21:49)
--- NOTE | 2017-04-27 10:14 | Hospitalist Progress Note ---
Hospitalist Progress Note Date of Service Apr 27, 2017. Subjective Pt evaluation today including: conversation w/ patient, physical exam, lab review, review of inpatient medication list Voiding: quispe catheter in place Patient resting in bed. Appears SOB, but states his breathing feels fine. OxyMask on. Poor PO intake- no appetite. Trying to eat as best as he can. Remeron added. Family/patient decided on pursuing hospice care. +worsening insomnia- Ambien added. Will add Roxanol PRN for SOB/pain as recommended by palliative care. He denied any further questions/complaints/concerns/needs. Patient denies any fever, chills, sweats, lightheadedness, dizziness, vision changes, CP, palpitations, edema, SOB, wheezing, cough, abdominal pain, nausea, vomiting, diarrhea, urinary symptoms, melena, numbness/tingling, weakness, muscle/joint pain, anxiety/depression, active bleeding, or new skin discoloration/changes. Tried to call daughter, no answer. Medications Current Inpatient Medications Medications (Trade) Dose Ordered Sig/Michel Route Start Time Stop Time Status Last Admin Dose Admin Acetaminophen (Tylenol Tab) 650 mg Q4H PRN PO 04/14/17 21:00 05/14/17 20:59 04/22/17 21:29 650 MG Magnesium Hydroxide (Milk Of Magnesia Susp) 30 ml Q6H PRN PO 04/14/17 21:00 05/14/17 20:59 Polyethylene (Miralax Powder Packet) 17 gm DAILY PRN PO 04/14/17 21:00 05/14/17 20:59 Ondansetron HCl (Zofran Inj) 4 mg Q6H PRN IV 04/14/17 21:00 05/14/17 20:59 04/27/17 01:14 4 MG Insulin Aspart (novoLOG ASPART) SLIDING SCALE If C... ACHS SC 04/14/17 21:00 05/14/17 20:59 04/26/17 20:11 19 UNITS Glucose (Glucose 40% Gel) 15-30 GRAMS 15 GRAMS... UD PRN PO 04/14/17 21:00 05/14/17 20:59 Glucose (Glucose Chew Tab) 4-8 Tablets 4 Tabl... UD PRN PO 04/14/17 21:00 05/14/17 20:59 Dextrose (Dextrose 50% 50ML Syringe) 25-50ML OF 50% DW IV FOR... UD PRN IV 04/14/17 21:00 05/14/17 20:59 Glucagon (Glucagon Inj) 1 mg UD PRN SQ 04/14/17 21:00 05/14/17 20:59 Amlodipine Besylate (Norvasc Tab) 5 mg QAM PO 04/15/17 08:00 05/15/17 08:59 04/27/17 08:36 5 MG Aspirin (Ecotrin Tab) 81 mg DAILY PO 04/15/17 08:00 05/15/17 08:59 04/27/17 08:36 81 MG Atorvastatin Calcium (Lipitor Tab) 40 mg DAILY PO 04/15/17 08:00 05/15/17 08:59 04/27/17 08:39 40 MG Budesonide/ Formoterol Fumarate (Symbicort 160/ 4.5 Inh) 2 puffs BID INH 04/15/17 08:00 05/15/17 07:59 04/27/17 08:35 2 PUFFS Furosemide (Lasix Tab) 20 mg DAILY PO 04/15/17 08:00 05/15/17 08:59 Future hold 04/27/17 08:36 20 MG Tiotropium [place] (Spiriva Handihaler Inhaler) 1 puff QAM INH 04/15/17 08:00 05/15/17 08:59 04/27/17 08:37 1 PUFF Albuterol/ Ipratropium (Duoneb) 3 ml QIDR INH 04/15/17 08:00 05/15/17 07:59 04/27/17 07:36 3 ML Heparin Sodium (Porcine) (Heparin 100 Unit/ml 5ml Flush) 5 ml PRN PRN IV 04/15/17 04:00 05/15/17 03:59 04/27/17 05:49 5 ML Prednisone (PredniSONE TAB) 30 mg Taper DAILY PO 04/17/17 08:00 05/04/17 07:59 04/27/17 08:35 30 MG Albuterol (Ventolin Hfa Inhaler) 2 puffs Q4H PRN INH 04/16/17 14:00 05/15/17 00:00 04/20/17 08:17 2 PUFFS Hydroxyzine HCl (Vistaril Tab) 50 mg HSZ PRN PO 04/18/17 15:30 05/14/17 20:59 04/26/17 21:49 50 MG Potassium Chloride ([place] Ciel Elix) 40 meq QAM PO 04/20/17 08:00 05/20/17 07:59 04/27/17 08:38 40 MEQ Guaifenesin (Organidin Nr Tab) 200 mg Q4H PRN PO 04/21/17 12:00 05/21/17 11:59 Insulin Glargine (Lantus Solostar Pen) 13 units HS SC 04/21/17 21:00 05/21/17 20:59 04/26/17 20:12 13 UNITS Sodium Chloride ([place] Nasal Alkol) 2 sprays Q6 PRN NA 04/24/17 11:00 05/24/17 10:59 Magnesium Oxide (Mag-Ox Tab) 400 mg BID PO 04/24/17 20:00 05/24/17 19:59 04/27/17 08:38 400 MG Levofloxacin (Levaquin Tab) 750 mg DAILY@11 PO 04/26/17 11:00 04/29/17 23:59 04/26/17 12:50 750 MG Lidocaine HCl/ Diphenhydramine HCl/Al Hydroxide/ Mg Hydroxide/ Glycerin/Barcode ACHS MT 04/26/17 11:00 05/26/17 10:59 04/27/17 08:35 5 ML Insulin Glargine (Lantus Solostar Pen) 15 units DAILY@0800 SC 04/28/17 08:00 05/22/17 07:59 Objective Vital Signs Date Time Temp Pulse Resp B/P (MAP) Pulse Ox O2 Delivery O2 Flow Rate FiO2 04/27/17 07:36 101 28 90 Mask 5.0 04/27/17 07:17 36.6 98 20 156/70 (98) 98 3.0 04/27/17 04:15 36.4 93 28 135/70 (91) 98 Oxymask 5.0 04/27/17 00:46 Oxymask 5.0 04/26/17 23:03 36.4 96 24 144/66 (92) 98 Nasal Cannula 5.0 04/26/17 20:15 Oxymask 5.0 04/26/17 19:34 36.7 103 28 133/64 (87) 95 Nasal Cannula 3.0 04/26/17 19:05 107 24 97 Mask 3.0 04/26/17 16:07 Oxymask 3.0 04/26/17 15:43 36.5 103 28 119/61 (80) 93 Oxymask 3.0 04/26/17 14:21 92 24 94 Mask 3.0 04/26/17 11:27 36.5 101 24 134/64 (87) 93 Nasal Cannula 2.0 04/26/17 11:02 89 24 98 Mask 5.0 04/26/17 10:17 Oxymask 3.0 Physical Exam General Appearance: + mild distress, + obese, + pertinent finding (OxyMask on ) Eyes: normal inspection, PERRL ENT: hearing grossly normal Neck: supple Respiratory/Chest: no respiratory distress, no accessory muscle use, + decreased breath sounds (throughout ), + accessory muscle use, + pertinent finding (coarse breath sounds throughout ) Cardiovascular: regular rate, rhythm (distant sounds due to coarse breath sounds ) Abdomen: normal bowel sounds, non tender, soft Extremities: + swelling (+2 pitting edema of bilateral upper/lower extremities ) Neurologic/Psychiatric: alert, normal mood/affect, oriented x 3 Skin: normal color, warm/dry, no rash Laboratory Results Last 24 Hours Test 04/26/17 11:46 04/26/17 16:39 04/26/17 20:02 04/27/17 05:48 Bedside Glucose 131 mg/dl 161 mg/dl 273 mg/dl Sodium Level 136 mmol/L Potassium Level 4.9 mmol/L Chloride Level 101 mmol/L Carbon Dioxide Level 31 mmol/L Anion Gap 4.0 mmol/L Blood Urea Nitrogen 34 mg/dl Creatinine 1.32 mg/dl Est Creatinine Clear Calc Drug Dose 64.4 ml/min Estimated GFR () 60.7 Estimated GFR (Non- 52.4 BUN/Creatinine Ratio 25.4 Random Glucose 110 mg/dl Calcium Level 7.9 mg/dl Phosphorus Level 3.4 mg/dl Magnesium Level 2.2 mg/dl Test 04/27/17 07:25 Bedside Glucose 152 mg/dl Assessment and Plan 76-year-old male here with neutropenic fever and pancytopenia from chemotherapy that was to treat a 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 Goals of care: - Palliative care consulted- DNR, pursue hospice care, Roxanol PRN for pain/SOB - Added Remeron 15 mg HS for appetite stimulant/depression Atypical infectious process on CT 04/22: - Started on Vancomycin + Levaquin on 04/15- now just Levaquin- last day of treatment on 04/28 for 14 day course - Sputum culture w/ normal rosa - Continue O2 protocol, DuoNebs, home inhalers, Mucinex PRN - Continue Prednisone taper - Leukocytosis- STABLE - Encourage patient OOB in chair - Consult pulmonary, appreciate recommendations +RLE DVT: - Started on IV Heparin gtt- experienced nose bleed/upper airway compromise - Pulmonary- likely w/ PE given hypercoagulable state/RLE DVT- IVC/ anticoagulation discussed- patient/family declined further treatment and opted for hospice care Neutropenic fevers- RESOLVED: - Treated w/ Neupogen - Neutropenic precautions - IV Zosyn prophylactically- no source of infection, d/c'ed - UA negative; BCx negative; sputum culture negative; C.diff negative - Hematology/oncology consulted- holding chemo/radiation, f/u outpatient Pancytopenia, secondary to chemotherapy- RESOLVED Small cell lung cancer: - Hematology/oncology following- stop anti-cancer therapy, patient wishes to pursue hospice care - Decreased size of mass on CT on 04/22 COPD: - O2 protocol - BiPAP HS - Continue Prednisone taper - Continue Symbicort, Spiriva, DuoNebs QID and PRN Bilateral UE swelling- STABLE: - UE US neg for DVT - ECHO 03/29/17- very limited, patient could not tolerate lying flat due to SOB - Treatment w/ Bumex 2 mg IV x3- little improvement in swelling- resume Lasix 20 mg daily Thrush: Magic mouthwash + Viscous Lidocaine [place] on CKD stage III- RESOLVED: Treated w/ IV Bumex x3 doses then transitioned to PO Lasix 20 mg daily- continue to follow PRP Hypokalemia- RESOLVED: Continue KCL supplement Diarrhea- RESOLVED: C. diff negative CAD, HLD: Continue Aspirin, Lipitor, Norvasc T2DM w/ hypoglycemia likely secondary to poor PO intake: - Lantus 15 u QAM and 13 u HS - BSG ACHS and ISS Insomnia: Stop Vistaril and start Ambien 5 mg HS DVT prophylaxis: Avoid anticoagulation due to bleeding risk/anemia Code status: LEVEL V, DNR Dispo: Planning for hospice care at discharge- CM following
[2017-04-27] MEDS ORDERED: hydrOXYzine HCL 25 MG TAB PO PRN (10:15)
[2017-04-27] MEDS: INSULIN GLARGINE SOLOSTAR 100 UNITS/ML 3 ML PEN SC SCH ×2 (10:22→21:50)
[2017-04-27] MEDS ORDERED: ZOLPIDEM TARTRATE 5 MG TAB PO PRN (10:45)
[2017-04-27] MEDS: LEVOFLOXACIN 750 MG TAB PO SCH (12:52)
[2017-04-27] MEDS: MoRPHine SULFATE 5 MG/0.25 ML UDP PO PRN ×3 (13:01→21:55)
[2017-04-27] MEDS: MIRTAZAPINE TAB 15 MG TAB PO SCH (21:38)
[2017-04-28] VITALS (9 sets, daily range): BP systolic 121–146; BP diastolic 69–84; PULSE 91–108; TEMP 36.3–36.5; O2SAT 85–99
[2017-04-28] MEDS: MoRPHine SULFATE 5 MG/0.25 ML UDP PO PRN ×2 (01:27→08:03)
[2017-04-28] MEDS: ALBUT/IPRATROP 3MG/0.5MG NEB 3 ML VIAL INH SCH ×4 (07:32→19:03)
[2017-04-28] MEDS: LIDOCAINE HCL 2% VISCOUS SOLN 60 ML, DiphenhydrAMINE HCL SYRUP 150 MG, ALUMINUM/MAGNESI... MT SCH ×16 (08:03→21:00)
--- NOTE | 2017-04-28 08:58 | Hospitalist Progress Note ---
Hospitalist Progress Note Date of Service Apr 28, 2017. Subjective Pt evaluation today including: conversation w/ patient (brother), conversation w/ family, physical exam, chart review, lab review, review of studies Pain: None PO Intake: Fair, requesting icecream Voiding: quispe catheter in place The patient was seen and examined this morning. Pt reports feeling fine overall , he has no acute complaints. His breathing is "status quo", as he remains on oximask at 5L with wheezing. He denies any other acute complaints. Brother at bedside- discussion held regarding hospice- specifically he and his niece to decide upon agencies for hospice with CM soon so that referrals can be placed for the patient to have adequate equipment if going home. The brother is adamant that his brother will be coming home, and not being placed in a facility. He reassures me they have family who would be able to care for him. We discussed the variable hours hospice nurses are actually present in the home , medication administration, equipment and other needs. He reports his niece is coming to the hospital today, however unsure if this will occur before 5 pm. He notes she is difficult to get a hold of via phone. Additional Comments: Constitutional: No fever, sweats or chills Eyes: No diplopia, no worsening or blurred vision ENT: normal hearing, +painful swallowing Respiratory: No cough, sputum, + well controlled dyspnea at rest Cardiovascular: No chest pain, tightness or palpitations Abdomen: No pain, nausea, vomiting, diarrhea or constipation Musculoskeletal: No joint pain, calf pain, + swelling in arms and legs Neurologic: No weakness, numbness/tingling, or balance problems Psychiatric: No anxiety or depression Skin: No rash or itch Objective Vital Signs Date Time Temp Pulse Resp B/P (MAP) Pulse Ox O2 Delivery O2 Flow Rate FiO2 04/28/17 07:33 97 26 97 Mask 4.0 04/28/17 07:18 36.4 93 26 133/74 (93) 98 Mask 5.0 04/28/17 04:00 36.5 91 22 136/69 (91) 98 Mask 5.0 04/28/17 00:00 Oxymask 5.0 04/27/17 23:20 36.5 99 22 149/74 (99) 99 Oxymask 4.0 04/27/17 20:00 Oxymask 5.0 04/27/17 19:43 36.8 105 28 144/71 (95) 98 Nasal Cannula 4.0 04/27/17 19:07 95 28 96 Mask 4.0 04/27/17 15:49 36.8 97 20 154/79 (104) 98 5.0 04/27/17 15:43 98 Oxymask 5.0 Mask 04/27/17 15:22 93 28 98 Mask 5.0 04/27/17 11:27 91 30 99 Mask 5.0 04/27/17 11:05 36.8 95 32 144/75 (98) 100 Physical Exam Notes: General: awake, alert, no apparent distress, morbidly obese Head: Normocephalic, atraumatic ENT: PERRL, EOMI, no pharyngeal exudate, mucous membranes are dry, erythematous , cracked and bleeding in some spots. no white exudate. Chest: On 5 L via oximask with audible wheezing, + diminished breath sounds throughout, + crackles, inspiratory and expiratory wheeze occasionally. Cardiac: Regular rate and rhythm, + systolic murmur, no JVD, normal peripheral pulses, good capillary refill Abdominal: NABS x 4 quadrants, soft, nontender to palpation, no rebound, guarding or tenderness Extremities: Normal inspection, + Upper and lower ext peripheral edema, 2+ pitting in BLE, + scaling of skin over BLE, no erythema, calfs nontender to palpation Psych: Normal mood and affect Neuro: AAO x 3, speech is clear, no peripheral sensory deficits Laboratory Results Last 24 Hours Test 04/27/17 11:20 04/27/17 16:28 04/27/17 20:09 04/28/17 07:23 Bedside Glucose 115 mg/dl 110 mg/dl 240 mg/dl 214 mg/dl Assessment and Plan 76 yo M here with neutropenic fever and pancytopenia from chemotherapy that was to treat a 5 x 7 cm SCLC, diagnosed in the last few weeks. Also with underlying COPD and ANGEL nocturnal BiPAP he has moderate protein malnutrition and likely peripheral edema because of the same. Goals of care: - Palliative care consulted- DNR, pursue hospice care, Roxanol 10 mg Q4H PRN ( increased today) for pain/SOB - Added Remeron 15 mg HS for appetite stimulant/depression and sleep aid. Atypical infectious process on CT 04/22: - Started on Vancomycin + Levaquin on 04/15- now just Levaquin- last day of treatment on 04/28 for 14 day course - Sputum culture w/ normal rsoa - Continue O2 protocol, DuoNebs, home inhalers, Mucinex PRN - Continue Prednisone taper - Leukocytosis- STABLE - Encourage patient OOB in chair - Consult pulmonary, appreciate recommendations +RLE DVT: - Started on IV Heparin gtt- experienced nose bleed/upper airway compromise so now off. - Pulmonary- likely w/ PE given hypercoagulable state/RLE DVT- IVC/ anticoagulation discussed- patient/family declined further treatment and opted for hospice care Neutropenic fevers- RESOLVED: - Treated w/ Neupogen - Neutropenic precautions - IV Zosyn prophylactically- no source of infection, d/c'ed - UA negative; BCx negative; sputum culture negative; C.diff negative - Hematology/oncology consulted- holding chemo/radiation, f/u outpatient Pancytopenia, secondary to chemotherapy- RESOLVED Small cell lung cancer: - Hematology/oncology following- stop anti-cancer therapy, patient wishes to pursue hospice care - Decreased size of mass on CT on 04/22 COPD: - O2 protocol - BiPAP HS - Continue Prednisone taper - Continue Symbicort, Spiriva, DuoNebs QID and PRN Bilateral UE swelling- STABLE: - UE US neg for DVT - ECHO 03/29/17- very limited, patient could not tolerate lying flat due to SOB - Treatment w/ Bumex 2 mg IV x3- little improvement in swelling- resume Lasix 20 mg daily Thrush: Magic mouthwash + Viscous Lidocaine CARLTON on CKD stage III- RESOLVED: Treated w/ IV Bumex x3 doses then transitioned to PO Lasix 20 mg daily- continue to follow PRP Hypokalemia- RESOLVED: Continue KCL supplement Diarrhea- RESOLVED: C. diff negative CAD, HLD: Continue Aspirin, Lipitor, Norvasc T2DM w/ hypoglycemia likely secondary to poor PO intake: - Lantus 15 u QAM and 13 u HS - BSG ACHS and ISS Insomnia: Stop Vistaril and start Ambien 5 mg HS DVT ppx: Avoid anticoagulation due to bleeding risk/anemia Code status: LEVEL V, DNR Dispo: Planning for hospice care at discharge- CM following, niece to choose hospice agency with CM today hopefully.
[2017-04-28] MEDS: TIOTROPIUM BROMIDE 5 PUFF/90 MCG INH INH SCH (09:07)
[2017-04-28] MEDS: BUDESONIDE/FORMOTEROL FUMARATE 160/4.5 60 PUFFS/INHALER INH SCH ×2 (09:07→21:12)
[2017-04-28] MEDS: ASPIRIN 81 MG ECTAB PO SCH (09:08)
[2017-04-28] MEDS: ATORVASTATIN 20 MG TAB PO SCH (09:09)
[2017-04-28] MEDS: MAGNESIUM OXIDE 400 MG TAB PO SCH ×2 (09:09→20:00)
[2017-04-28] MEDS: AMLODIPINE BESYLATE 5 MG TAB PO SCH (09:09)
[2017-04-28] MEDS: FUROSEMIDE 20 MG TAB PO SCH (09:09)
[2017-04-28] MEDS: POTASSIUM CHLORIDE 20 MEQ/15 ML UDC PO SCH (09:09)
[2017-04-28] MEDS: INSULIN ASPART 100 UNITS/ML 3 ML PEN SC SCH ×4 (09:12→21:00)
[2017-04-28] MEDS: INSULIN GLARGINE SOLOSTAR 100 UNITS/ML 3 ML PEN SC SCH ×2 (09:13→21:15)
--- NOTE | 2017-04-28 09:46 | Palliative Care Progress Note ---
Palliative Care Progress Note Date of Service Apr 28, 2017. Subjective Pt evaluation today including: conversation w/ patient Was notified by patient's primary RN that patient breathing is more labored today. He is receiving Roxanol 5mg PO/SL Q4h PRN and it doesn't seem to do much. I went to patient's room to examine him. Upon entering, patient was asleep , he startled when I woke him and was upset that I did so. His breathing was labored and moist. Respiratory rate was in 30s. Would recommend increasing Roxanol to 10mg PO/SL Q1h PRN and adding scopolamine patch. Patient declined any further conversation and asked to go back to sleep.
[2017-04-28] MEDS: LEVOFLOXACIN 750 MG TAB PO SCH (12:44)
[2017-04-28] MEDS: MoRPHine SULFATE 10 MG/0.5 ML UDP PO PRN ×3 (12:44→23:03)
[2017-04-28] MEDS: MIRTAZAPINE TAB 15 MG TAB PO SCH (21:13)
[2017-04-29] VITALS (10 sets, daily range): BP systolic 115–155; BP diastolic 52–81; PULSE 86–125; TEMP 36.7–37.6; O2SAT 72–96
[2017-04-29] MEDS: MoRPHine SULFATE 10 MG/0.5 ML UDP PO PRN ×3 (04:00→12:49)
[2017-04-29] MEDS: LIDOCAINE HCL 2% VISCOUS SOLN 60 ML, DiphenhydrAMINE HCL SYRUP 150 MG, ALUMINUM/MAGNESI... MT SCH ×16 (06:36→20:48)
[2017-04-29] MEDS: ALBUT/IPRATROP 3MG/0.5MG NEB 3 ML VIAL INH SCH ×4 (06:55→19:00)
[2017-04-29] MEDS: ATORVASTATIN 20 MG TAB PO SCH (08:35)
[2017-04-29] MEDS: POTASSIUM CHLORIDE 20 MEQ/15 ML UDC PO SCH (08:35)
[2017-04-29] MEDS: FUROSEMIDE 20 MG TAB PO SCH (08:35)
[2017-04-29] MEDS: MAGNESIUM OXIDE 400 MG TAB PO SCH ×2 (08:35→20:00)
[2017-04-29] MEDS: AMLODIPINE BESYLATE 5 MG TAB PO SCH (08:35)
[2017-04-29] MEDS: ASPIRIN 81 MG ECTAB PO SCH (08:35)
[2017-04-29] MEDS: BUDESONIDE/FORMOTEROL FUMARATE 160/4.5 60 PUFFS/INHALER INH SCH ×2 (08:36→20:45)
[2017-04-29] MEDS: INSULIN ASPART 100 UNITS/ML 3 ML PEN SC SCH ×4 (08:45→20:50)
[2017-04-29] MEDS: SCOPOLAMINE 1.5 MG TDSY TD SCH (09:09)
[2017-04-29] MEDS: TIOTROPIUM BROMIDE 5 PUFF/90 MCG INH INH SCH (09:18)
[2017-04-29] MEDS: INSULIN GLARGINE SOLOSTAR 100 UNITS/ML 3 ML PEN SC SCH ×2 (09:55→20:51)
[2017-04-29] MEDS ORDERED: NURSING VERBAL MED ORDER ONE (10:00)
[2017-04-29] MEDS ORDERED: MICONAZOLE NITRATE POWDER 43 GM ONE (10:17)
[2017-04-29] MEDS ORDERED: MICONAZOLE NITRATE POWDER 43 GM EXT PRN (10:30)
[2017-04-29] MEDS: LEVOFLOXACIN 750 MG TAB PO SCH (11:59)
--- NOTE | 2017-04-29 13:32 | Hospitalist Progress Note ---
Hospitalist Progress Note Date of Service Apr 29, 2017. Subjective Pt evaluation today including: conversation w/ patient, physical exam, lab review, review of inpatient medication list Voiding: quispe catheter in place Patient resting in bed. Denies any SOB but appears short of breath. OxyMask on. Poor PO intake due to decreased appetite. Denies any questions/concerns/needs at this time. Questioned whether his daughter would be in and he didn't know- states he hasn' t talked to her in a few days. Patient denies any fever, chills, sweats, lightheadedness, dizziness, vision changes, CP, palpitations, edema, SOB, wheezing, cough, abdominal pain, nausea, vomiting, diarrhea, urinary symptoms, melena, numbness/tingling, weakness, muscle/joint pain, anxiety/depression, active bleeding, or new skin discoloration/changes. Tried to call daughter to discuss discharge plans- no answer. Medications Current Inpatient Medications Medications (Trade) Dose Ordered Sig/Michel Route Start Time Stop Time Status Last Admin Dose Admin Acetaminophen (Tylenol Tab) 650 mg Q4H PRN PO 04/14/17 21:00 05/14/17 20:59 04/22/17 21:29 650 MG Magnesium Hydroxide (Milk Of Magnesia Susp) 30 ml Q6H PRN PO 04/14/17 21:00 05/14/17 20:59 Polyethylene (Miralax Powder Packet) 17 gm DAILY PRN PO 04/14/17 21:00 05/14/17 20:59 Ondansetron HCl (Zofran Inj) 4 mg Q6H PRN IV 04/14/17 21:00 05/14/17 20:59 04/27/17 01:14 4 MG Insulin Aspart (novoLOG ASPART) SLIDING SCALE If C... ACHS SC 04/14/17 21:00 05/14/17 20:59 04/28/17 12:47 7 UNITS Glucose (Glucose 40% Gel) 15-30 GRAMS 15 GRAMS... UD PRN PO 04/14/17 21:00 05/14/17 20:59 Glucose (Glucose Chew Tab) 4-8 Tablets 4 Tabl... UD PRN PO 04/14/17 21:00 05/14/17 20:59 Dextrose (Dextrose 50% 50ML Syringe) 25-50ML OF 50% DW IV FOR... UD PRN IV 04/14/17 21:00 05/14/17 20:59 Glucagon (Glucagon Inj) 1 mg UD PRN SQ 04/14/17 21:00 05/14/17 20:59 Amlodipine Besylate (Norvasc Tab) 5 mg QAM PO 04/15/17 08:00 05/15/17 08:59 04/27/17 08:36 5 MG Aspirin (Ecotrin Tab) 81 mg DAILY PO 04/15/17 08:00 05/15/17 08:59 04/27/17 08:36 81 MG Atorvastatin Calcium (Lipitor Tab) 40 mg DAILY PO 04/15/17 08:00 05/15/17 08:59 04/27/17 08:39 40 MG Budesonide/ Formoterol Fumarate (Symbicort 160/ 4.5 Inh) 2 puffs BID INH 04/15/17 08:00 05/15/17 07:59 04/29/17 08:36 2 PUFFS Furosemide (Lasix Tab) 20 mg DAILY PO 04/15/17 08:00 05/15/17 08:59 Future hold 04/27/17 08:36 20 MG Tiotropium [place] (Spiriva Handihaler Inhaler) 1 puff QAM INH 04/15/17 08:00 05/15/17 08:59 04/29/17 09:18 1 PUFF Albuterol/ Ipratropium (Duoneb) 3 ml QIDR INH 04/15/17 08:00 05/15/17 07:59 04/29/17 11:19 3 ML Heparin Sodium (Porcine) (Heparin 100 Unit/ml 5ml Flush) 5 ml PRN PRN IV 04/15/17 04:00 05/15/17 03:59 04/29/17 10:07 5 ML Prednisone (PredniSONE TAB) 20 mg Taper DAILY PO 04/17/17 08:00 05/04/17 07:59 04/27/17 08:35 30 MG Albuterol (Ventolin Hfa Inhaler) 2 puffs Q4H PRN INH 04/16/17 14:00 05/15/17 00:00 04/20/17 08:17 2 PUFFS Potassium Chloride ([place] Elix) 40 meq QAM PO 04/20/17 08:00 05/20/17 07:59 04/27/17 08:38 40 MEQ Guaifenesin (Organidin Nr Tab) 200 mg Q4H PRN PO 04/21/17 12:00 05/21/17 11:59 Insulin Glargine (Lantus Solostar Pen) 13 units HS SC 04/21/17 21:00 05/21/17 20:59 04/28/17 21:15 13 UNITS Sodium Chloride ([place] Nasal [place]) 2 sprays Q6 PRN NA 04/24/17 11:00 05/24/17 10:59 Magnesium Oxide (Mag-Ox Tab) 400 mg BID PO 04/24/17 20:00 05/24/17 19:59 04/27/17 21:36 400 MG Levofloxacin (Levaquin Tab) 750 mg DAILY@11 PO 04/26/17 11:00 04/29/17 23:59 04/27/17 12:52 750 MG Lidocaine HCl/ Diphenhydramine HCl/Al Hydroxide/ Mg Hydroxide/ Glycerin/Barcode ACHS MT 04/26/17 11:00 05/26/17 10:59 04/29/17 06:36 5 ML Insulin Glargine (Lantus Solostar Pen) 15 units DAILY@0800 SC 04/28/17 08:00 05/22/17 07:59 04/28/17 09:13 15 UNITS Mirtazapine (Remeron Tab) 15 mg HS PO 04/27/17 21:00 05/27/17 20:59 04/28/17 21:13 15 MG Zolpidem Tartrate (Ambien Tab) 5 mg HS PRN PO 04/27/17 10:45 05/27/17 10:44 Scopolamine (Transderm-Scop Patch) 1.5 mg Q72H TD 04/29/17 09:00 05/29/17 08:59 04/29/17 09:09 1.5 MG Miscellaneous (Remove Transderm-Scop Patch) 1 ea Q72H N/A 05/02/17 09:00 06/01/17 08:59 Miscellaneous Information (Check Scopolamine Patch Placement) 1 ea QS N/A 04/29/17 16:00 05/29/17 15:59 Miconazole Nitrate (Desenex Powder) 1 appln UD PRN EXT 04/29/17 10:30 05/29/17 10:29 Morphine Sulfate (Roxanol Oral Soln) 10 mg Q2H PRN PO 04/29/17 11:30 05/11/17 10:14 04/29/17 12:49 10 MG Objective Vital Signs Date Time Temp Pulse Resp B/P (MAP) Pulse Ox O2 Delivery O2 Flow Rate FiO2 04/29/17 12:08 37.6 120 22 137/55 (82) 94 Oxymask 4.0 04/29/17 11:19 86 22 94 Mask 4.0 04/29/17 08:00 Oxymask 04/29/17 07:59 36.7 118 22 155/52 (86) 92 Oxymask 4.0 04/29/17 07:02 113 22 94 Mask 4.0 04/29/17 03:39 37.3 109 22 146/63 (90) 96 Oxymask 4.0 04/29/17 01:00 Oxymask 5.0 04/29/17 00:26 36.8 112 20 148/81 (103) 92 Oxymask 4.0 04/28/17 21:30 Oxymask 5.0 04/28/17 19:33 36.3 108 22 121/84 (96) 94 Oxymask 4.0 04/28/17 19:04 93 22 85 Room Air 04/28/17 15:43 36.4 94 24 146/71 (96) 99 5.0 04/28/17 15:40 Oxymask 5.0 04/28/17 15:14 92 26 98 Mask 4.0 Physical Exam General Appearance: + mild distress, + obese, + pertinent finding (OxyMask ) Eyes: normal inspection, PERRL ENT: hearing grossly normal, + pertinent finding (dry oral mucosa/dried blood present- no acute bleeding ) Neck: supple Respiratory/Chest: no respiratory distress, no accessory muscle use, + decreased breath sounds (throughout ), + accessory muscle use, + pertinent finding (coarse breath sounds throughout ) Cardiovascular: regular rate, rhythm Abdomen: normal bowel sounds, non tender, soft Extremities: no calf tenderness, + swelling (+2 pitting edema of bilateral lower/upper extremities), + pertinent finding (brown discoloration/dryness of BLEs ) Neurologic/Psychiatric: alert, normal mood/affect, oriented x 3 Skin: normal color, warm/dry, no rash Laboratory Results Last 24 Hours Test 04/28/17 16:33 04/28/17 19:39 04/29/17 07:35 04/29/17 11:50 Bedside Glucose 126 mg/dl 130 mg/dl 125 mg/dl 152 mg/dl Assessment and Plan 76-year-old male here with neutropenic fever and pancytopenia from chemotherapy that was to treat a 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 Goals of care: - Palliative care consulted- DNR, pursue hospice care, Roxanol 10 mg q2 hrs PRN for pain/SOB - Scopolamine patch added - Added Remeron 15 mg HS for appetite stimulant/depression Atypical infectious process on CT 04/22: - Started on Vancomycin + Levaquin on 04/15- now just Levaquin- last day of treatment on 04/28 for 14 day course - Sputum culture w/ normal rosa - Continue O2 protocol, DuoNebs, home inhalers, Mucinex PRN - Continue Prednisone taper - Leukocytosis- STABLE - Encourage patient OOB in chair - Consult pulmonary, appreciate recommendations +RLE DVT: - Started on IV Heparin gtt- experienced nose bleed/upper airway compromise so discontinued - Pulmonary- likely w/ PE given hypercoagulable state/RLE DVT- IVC/ anticoagulation discussed- patient/family declined further treatment and opted for hospice care Neutropenic fevers- RESOLVED: - Treated w/ Neupogen - Neutropenic precautions - IV Zosyn prophylactically- no source of infection, d/c'ed - UA negative; BCx negative; sputum culture negative; C.diff negative - Hematology/oncology consulted- holding chemo/radiation, f/u outpatient Pancytopenia, secondary to chemotherapy- RESOLVED Small cell lung cancer: - Hematology/oncology following- stop anti-cancer therapy, patient wishes to pursue hospice care - Decreased size of mass on CT on 04/22 COPD: - O2 protocol - BiPAP HS - Continue Prednisone taper - Continue Symbicort, Spiriva, DuoNebs QID and PRN Bilateral UE swelling- STABLE: - UE US neg for DVT - ECHO 03/29/17- very limited, patient could not tolerate lying flat due to SOB - Treatment w/ Bumex 2 mg IV x3- little improvement in swelling- resume Lasix 20 mg daily Thrush: Magic mouthwash + Viscous Lidocaine CARLTON on CKD stage III- RESOLVED: Treated w/ IV Bumex x3 doses then transitioned to PO Lasix 20 mg daily- continue to follow PRP Hypokalemia- RESOLVED: Continue KCL supplement Diarrhea- RESOLVED: C. diff negative CAD, HLD: Continue Aspirin, Lipitor, Norvasc T2DM w/ hypoglycemia likely secondary to poor PO intake: - Lantus 15 u QAM and 13 u HS - BSG ACHS and ISS Insomnia: Ambien 5 mg HS DVT prophylaxis: Avoid anticoagulation due to bleeding risk/anemia Code status: LEVEL V, DNR Dispo: Planning for hospice care at discharge- CM following
[2017-04-29] MEDS: CHECK SCOPOLAMINE PATCH PLACEMENT SCH (15:35)
[2017-04-29] MEDS ORDERED: ZOLPIDEM TARTRATE 5 MG TAB PO PRN (15:45)
[2017-04-29] MEDS ORDERED: FLUCONAZOLE / NSS 100 MG in PREMIXED NSS 50 ML IV ONE (16:00)
[2017-04-29] MEDS: MIRTAZAPINE TAB 15 MG TAB PO SCH (20:46)
[2017-04-30] VITALS (11 sets, daily range): BP systolic 92–180; BP diastolic 50–73; PULSE 88–112; TEMP 36.7–38; O2SAT 90–98
[2017-04-30] MEDS: CHECK SCOPOLAMINE PATCH PLACEMENT SCH ×3 (00:29→15:55)
[2017-04-30] MEDS: ALBUT/IPRATROP 3MG/0.5MG NEB 3 ML VIAL INH SCH ×4 (07:17→19:50)
[2017-04-30] MEDS: LIDOCAINE HCL 2% VISCOUS SOLN 60 ML, DiphenhydrAMINE HCL SYRUP 150 MG, ALUMINUM/MAGNESI... MT SCH ×16 (08:20→21:56)
[2017-04-30] MEDS: FLUCONAZOLE / NSS 100 MG in PREMIXED NSS 50 ML IV SCH (09:00)
[2017-04-30] MEDS: TIOTROPIUM BROMIDE 5 PUFF/90 MCG INH INH SCH (09:02)
[2017-04-30] MEDS: BUDESONIDE/FORMOTEROL FUMARATE 160/4.5 60 PUFFS/INHALER INH SCH ×2 (09:02→21:50)
[2017-04-30] MEDS: INSULIN ASPART 100 UNITS/ML 3 ML PEN SC SCH ×4 (09:04→20:38)
[2017-04-30] MEDS: INSULIN GLARGINE SOLOSTAR 100 UNITS/ML 3 ML PEN SC SCH ×2 (09:05→22:00)
[2017-04-30] MEDS: ASPIRIN 81 MG ECTAB PO SCH (10:39)
[2017-04-30] MEDS: POTASSIUM CHLORIDE 20 MEQ/15 ML UDC PO SCH (10:39)
--- NOTE | 2017-04-30 10:39 | Clinical Documentation Query ---
CLINICAL DOCUMENTATION QUERY Dr. LAYTON, In your clinical opinion is this patient being managed for: ( x ) severe protein-calorie malnutrition ( ) Not Agree ( ) Other explanation of clinical findings (Please Explain) ( ) Unable to determine (Please Define) ( ) Need to Discuss The medical record reflects the following clinical findings, treatment, and risk factors. Clinical Indicators:76 yo male presenting with neutropenia, lung cancer. Per vacuum cooker operator note of 04/28, Pt has had a wt loss of 3% in 10 days as well as <50% dietary intake for > 5 days Treatment: continue regular diet and downgrade to [facility] soft prn, continue remeron, honor food preferences and encourage intake of protein rich foods, magic mouthwash, IV diflucan, pursuing hospice care Risk Factors: end stage lung cancer, COPD, thrush Severe Malnutrition Criteria: (2 criteria needed) Energy intake: <50% of estimated energy requirement for > 5 days Wt loss: 1-2% in 1 wk, 5% in 1 month, or 7.5% in 3 months Body fat: moderate loss of SQ fat from the orbits, triceps or fat overlying the ribs Muscle mass: moderate muscle wasting at the temples, clavicles, shoulders, interosseous spaces, scapula, thigh, calf Fluid accumulation: moderate to severe localized or generalized edema of the extremities, vulva, scrotum-wt loss may be masked by edema Universal Winding Machine Operator strength: measurably decreased per the devices standards Please clarify and document your clinical opinion in the progress notes and discharge summary. Terms such as "probable", "suspected", "likely", "questionable", "possible", or "still to be ruled out" are acceptable. IF IN AGREEMENT, YOU MUST DOCUMENT ABOVE DIAGNOSTIC STATEMENT IN DAILY PROGRESS NOTES AND DISCHARGE SUMMARY. This document is not part of the patient's record. Thank You, Ana Wing RN [phone]
[2017-04-30] MEDS: MAGNESIUM OXIDE 400 MG TAB PO SCH ×2 (10:40→20:38)
[2017-04-30] MEDS: ATORVASTATIN 20 MG TAB PO SCH (10:40)
[2017-04-30] MEDS: FUROSEMIDE 20 MG TAB PO SCH (10:40)
[2017-04-30] MEDS: AMLODIPINE BESYLATE 5 MG TAB PO SCH (10:40)
[2017-04-30] MEDS: MoRPHine SULFATE 10 MG/0.5 ML UDP PO PRN ×4 (10:45→21:56)
--- NOTE | 2017-04-30 11:56 | Hospitalist Progress Note ---
Hospitalist Progress Note Date of Service Apr 30, 2017. Subjective Pt evaluation today including: conversation w/ patient, physical exam, lab review, review of inpatient medication list Voiding: quispe catheter in place Patient sitting up in bed. States he is feeling well this AM. Still w/ poor PO intake, but trying to eat/drink as possible. Breathing feels OK. Non-worsening. Biggest complaint is insomnia. Didn't sleep much until around 0500. Received increased dose of Ambien 10 mg last night. Will try Ativan tonight. Refers to daughter for discharge planning. Attempted to call daughter again today. No answer. Patient denies any fever, chills, sweats, lightheadedness, dizziness, vision changes, CP, palpitations, edema, SOB, wheezing, cough, abdominal pain, nausea, vomiting, diarrhea, urinary symptoms, melena, numbness/tingling, weakness, muscle/joint pain, anxiety/depression, active bleeding, or new skin discoloration/changes. Medications Current Inpatient Medications Medications (Trade) Dose Ordered Sig/Michel Route Start Time Stop Time Status Last Admin Dose Admin Acetaminophen (Tylenol Tab) 650 mg Q4H PRN PO 04/14/17 21:00 05/14/17 20:59 04/22/17 21:29 650 MG Magnesium Hydroxide (Milk Of Magnesia Susp) 30 ml Q6H PRN PO 04/14/17 21:00 05/14/17 20:59 Polyethylene (Miralax Powder Packet) 17 gm DAILY PRN PO 04/14/17 21:00 05/14/17 20:59 Ondansetron HCl (Zofran Inj) 4 mg Q6H PRN IV 04/14/17 21:00 05/14/17 20:59 04/27/17 01:14 4 MG Insulin Aspart (novoLOG ASPART) SLIDING SCALE If C... ACHS SC 04/14/17 21:00 05/14/17 20:59 04/29/17 20:50 4 UNITS Glucose (Glucose 40% Gel) 15-30 GRAMS 15 GRAMS... UD PRN PO 04/14/17 21:00 05/14/17 20:59 Glucose (Glucose Chew Tab) 4-8 Tablets 4 Tabl... UD PRN PO 04/14/17 21:00 05/14/17 20:59 Dextrose (Dextrose 50% 50ML Syringe) 25-50ML OF 50% DW IV FOR... UD PRN IV 04/14/17 21:00 05/14/17 20:59 Glucagon (Glucagon Inj) 1 mg UD PRN SQ 04/14/17 21:00 05/14/17 20:59 Amlodipine Besylate (Norvasc Tab) 5 mg QAM PO 04/15/17 08:00 05/15/17 08:59 04/27/17 08:36 5 MG Aspirin (Ecotrin Tab) 81 mg DAILY PO 04/15/17 08:00 05/15/17 08:59 04/27/17 08:36 81 MG Atorvastatin Calcium (Lipitor Tab) 40 mg DAILY PO 04/15/17 08:00 05/15/17 08:59 04/27/17 08:39 40 MG Budesonide/ Formoterol Fumarate (Symbicort 160/ 4.5 Inh) 2 puffs BID INH 04/15/17 08:00 05/15/17 07:59 04/29/17 20:45 2 PUFFS Furosemide (Lasix Tab) 20 mg DAILY PO 04/15/17 08:00 05/15/17 08:59 Future hold 04/27/17 08:36 20 MG Tiotropium [place] (Spiriva Handihaler Inhaler) 1 puff QAM INH 04/15/17 08:00 05/15/17 08:59 04/29/17 09:18 1 PUFF Albuterol/ Ipratropium (Duoneb) 3 ml QIDR INH 04/15/17 08:00 05/15/17 07:59 04/30/17 07:17 3 ML Heparin Sodium (Porcine) (Heparin 100 Unit/ml 5ml Flush) 5 ml PRN PRN IV 04/15/17 04:00 05/15/17 03:59 04/29/17 10:07 5 ML Prednisone (PredniSONE TAB) 20 mg Taper DAILY PO 04/17/17 08:00 05/04/17 07:59 04/27/17 08:35 30 MG Albuterol (Ventolin Hfa Inhaler) 2 puffs Q4H PRN INH 04/16/17 14:00 05/15/17 00:00 04/20/17 08:17 2 PUFFS Potassium Chloride ([place]hel[place] Ciel Elix) 40 meq QAM PO 04/20/17 08:00 05/20/17 07:59 04/27/17 08:38 40 MEQ Guaifenesin (Organidin Nr Tab) 200 mg Q4H PRN PO 04/21/17 12:00 05/21/17 11:59 Insulin Glargine (Lantus Solostar Pen) 13 units HS SC 04/21/17 21:00 05/21/17 20:59 04/29/17 20:51 13 UNITS Sodium Chloride ([place] Nasal [place]) 2 sprays Q6 PRN NA 04/24/17 11:00 05/24/17 10:59 Magnesium Oxide (Mag-Ox Tab) 400 mg BID PO 04/24/17 20:00 05/24/17 19:59 04/27/17 21:36 400 MG Lidocaine HCl/ Diphenhydramine HCl/Al Hydroxide/ Mg Hydroxide/ Glycerin/Barcode ACHS MT 04/26/17 11:00 05/26/17 10:59 04/29/17 20:48 5 ML Insulin Glargine (Lantus Solostar Pen) 15 units DAILY@0800 SC 04/28/17 08:00 05/22/17 07:59 04/28/17 09:13 15 UNITS Mirtazapine (Remeron Tab) 15 mg HS PO 04/27/17 21:00 05/27/17 20:59 04/28/17 21:13 15 MG Scopolamine (Transderm-Scop Patch) 1.5 mg Q72H TD 04/29/17 09:00 05/29/17 08:59 04/29/17 09:09 1.5 MG Miscellaneous (Remove Transderm-Scop Patch) 1 ea Q72H N/A 05/02/17 09:00 06/01/17 08:59 Miscellaneous Information (Check Scopolamine Patch Placement) 1 ea QS N/A 04/29/17 16:00 05/29/17 15:59 04/30/17 00:29 1 EA Miconazole Nitrate (Desenex Powder) 1 appln UD PRN EXT 04/29/17 10:30 05/29/17 10:29 Morphine Sulfate (Roxanol Oral Soln) 10 mg Q2H PRN PO 04/29/17 11:30 05/11/17 10:14 04/29/17 12:49 10 MG Zolpidem Tartrate (Ambien Tab) 10 mg HS PRN PO 04/29/17 15:45 05/27/17 10:44 Fluconazole/ Sodium Chloride 100 mg/Prmx 50 ml @ 100 mls/hr DAILY IV 04/30/17 08:00 05/10/17 07:59 Objective Vital Signs Date Time Temp Pulse Resp B/P (MAP) Pulse Ox O2 Delivery O2 Flow Rate FiO2 04/30/17 07:38 36.8 99 22 106/69 (81) 95 BiPAP 04/30/17 07:17 94 26 93 BiPAP/CPAP 4.0 04/30/17 03:37 37.1 100 20 114/63 (80) 95 BiPAP 04/30/17 00:18 37.0 109 22 127/70 (89) 90 BiPAP 4.0 04/30/17 00:00 CPAP 04/29/17 20:06 36.7 125 20 138/64 (88) 94 Room Air 04/29/17 19:02 113 33 72 BiPAP/CPAP 4.0 04/29/17 16:04 37.0 120 20 115/68 (84) 90 CPAP 4.0 04/29/17 15:20 Oxymask 4.0 CPAP 04/29/17 15:02 115 24 94 Mask 4.0 04/29/17 12:08 37.6 120 22 137/55 (82) 94 Oxymask 4.0 04/29/17 11:19 86 22 94 Mask 4.0 Physical Exam General Appearance: no apparent distress, + obese, + pertinent finding ( OxyMask ) Eyes: normal inspection, PERRL ENT: hearing grossly normal, + pertinent finding (dry oral mucosa/dried blood noted ) Neck: supple Respiratory/Chest: no respiratory distress, no accessory muscle use, + decreased breath sounds (throughout ), + pertinent finding (coarse breath sounds throughout ) Cardiovascular: regular rate, rhythm Abdomen: normal bowel sounds, non tender, soft Extremities: + swelling (+2-3 pitting edema of bilateral upper/lower extremities), + pertinent finding (stasis dermatitis to bilateral lower extremities ) Neurologic/Psychiatric: alert, normal mood/affect, oriented x 3 Skin: normal color, warm/dry, no rash Laboratory Results Last 24 Hours Test 04/29/17 11:50 3/21/18 16:39 04/29/17 20:28 04/30/17 07:39 Bedside Glucose 152 mg/dl 201 mg/dl 197 mg/dl 181 mg/dl Assessment and Plan 76-year-old male here with neutropenic fever and pancytopenia from chemotherapy that was to treat a 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 Goals of care: - Palliative care consulted- DNR, pursue hospice care, Roxanol 10 mg q2 hrs PRN for pain/SOB - Scopolamine patch added - Added Remeron 15 mg HS for appetite stimulant/depression - Discharge planning- home vs placement for hospice care- daughterMeagan to make decisions but not answering/returning phone calls Thrush: Magic swizzle ACHS + Viscous Lidocaine + added IV Fluconazole 100 mg on 04/29 for more aggressive treatment Atypical infectious process on CT 04/22: - Started on Vancomycin + Levaquin on 04/15- transitioned to just Levaquin- 14 day course completed - Sputum culture w/ normal rosa - Continue O2 protocol, DuoNebs, home inhalers, Mucinex PRN - Continue Prednisone taper - Leukocytosis- STABLE - Encourage patient OOB in chair +RLE DVT: - Started on IV Heparin gtt- experienced nose bleed/upper airway compromise so discontinued - Pulmonary- likely w/ PE given hypercoagulable state/RLE DVT- IVC/ anticoagulation discussed- patient/family declined further treatment and opted for hospice care Neutropenic fevers- RESOLVED: - Treated w/ Neupogen - Neutropenic precautions - IV Zosyn prophylactically- no source of infection, d/c'ed - UA negative; BCx negative; sputum culture negative; C.diff negative - Hematology/oncology consulted Pancytopenia, secondary to chemotherapy- RESOLVED Small cell lung cancer: - Hematology/oncology following- stop anti-cancer therapy, patient wishes to pursue hospice care - Decreased size of mass on CT on 04/22 COPD: - O2 protocol - BiPAP HS - Continue Prednisone taper - Continue Symbicort, Spiriva, DuoNebs QID and PRN Bilateral UE swelling- STABLE: - UE US neg for DVT - ECHO 03/29/17- very limited, patient could not tolerate lying flat due to SOB - Treatment w/ Bumex 2 mg IV x3- little improvement in swelling- resume Lasix 20 mg daily [place] on CKD stage III- RESOLVED: Treated w/ IV Bumex x3 doses then transitioned to PO Lasix 20 mg daily- continue to follow PRP Hypokalemia- RESOLVED: Continue KCL supplement Diarrhea- RESOLVED: C. diff negative CAD, HLD: Continue Aspirin, Lipitor, Norvasc T2DM w/ hypoglycemia likely secondary to poor PO intake: - Lantus 15 u QAM and 13 u HS - BSG ACHS and ISS Insomnia: Stop Ambien 10 mg HS, try Ativan 1 mg HS DVT prophylaxis: Avoid anticoagulation due to bleeding risk/anemia Code status: LEVEL V, DNR Dispo: Planning for hospice care at discharge- CM following
--- NOTE | 2017-04-30 13:24 | Palliative Care Progress Note ---
Palliative Care Progress Note Date of Service Apr 30, 2017. Subjective Received a voicemail on my phone after hours from patient's daughter Ej Jordan. Attempted to call her back this morning with no answer.
[2017-04-30] MEDS ORDERED: LORAZEPAM 2 MG/ML 1 ML VIAL IV SCH (21:00)
[2017-04-30] MEDS: MIRTAZAPINE TAB 15 MG TAB PO SCH (21:52)
[2017-04-30] MEDS: LORAZEPAM INJ 1 MG in SYRINGE 0.5 ML IV SCH (22:01)
[2017-05-01] VITALS (12 sets, daily range): BP systolic 120–160; BP diastolic 58–81; PULSE 98–118; TEMP 36.4–38; O2SAT 92–100; Ht 172.7 cm; Wt 126.2 kg
[2017-05-01] MEDS: ACETAMINOPHEN 325 MG TAB PO PRN (00:04)
[2017-05-01] MEDS: CHECK SCOPOLAMINE PATCH PLACEMENT SCH ×4 (00:09→20:42)
[2017-05-01] MEDS: LIDOCAINE HCL 2% VISCOUS SOLN 60 ML, DiphenhydrAMINE HCL SYRUP 150 MG, ALUMINUM/MAGNESI... MT SCH ×16 (06:30→20:40)
[2017-05-01] MEDS: INSULIN ASPART 100 UNITS/ML 3 ML PEN SC SCH ×4 (06:30→20:41)
[2017-05-01] MEDS: ALBUT/IPRATROP 3MG/0.5MG NEB 3 ML VIAL INH SCH ×4 (07:00→18:59)
[2017-05-01] MEDS: MoRPHine SULFATE 10 MG/0.5 ML UDP PO PRN ×3 (07:45→20:40)
[2017-05-01] MEDS: POTASSIUM CHLORIDE 20 MEQ/15 ML UDC PO SCH (08:00)
[2017-05-01] MEDS: BUDESONIDE/FORMOTEROL FUMARATE 160/4.5 60 PUFFS/INHALER INH SCH ×2 (08:00→20:39)
[2017-05-01] MEDS: MAGNESIUM OXIDE 400 MG TAB PO SCH (08:00)
[2017-05-01] MEDS: ATORVASTATIN 20 MG TAB PO SCH (08:00)
[2017-05-01] MEDS: TIOTROPIUM BROMIDE 5 PUFF/90 MCG INH INH SCH (08:00)
[2017-05-01] MEDS: AMLODIPINE BESYLATE 5 MG TAB PO SCH (08:00)
[2017-05-01] MEDS: FUROSEMIDE 20 MG TAB PO SCH (08:00)
[2017-05-01] MEDS: ASPIRIN 81 MG ECTAB PO SCH (08:00)
[2017-05-01] MEDS: FLUCONAZOLE / NSS 100 MG in PREMIXED NSS 50 ML IV SCH (08:33)
[2017-05-01] MEDS: INSULIN GLARGINE SOLOSTAR 100 UNITS/ML 3 ML PEN SC SCH ×2 (08:37→20:42)
--- NOTE | 2017-05-01 13:52 | Hospitalist Progress Note ---
Hospitalist Progress Note Date of Service May 01, 2017. Subjective Pt evaluation today including: conversation w/ patient, physical exam, lab review, review of inpatient medication list Voiding: quispe catheter in place (draining orange/concentrated urine ) Patient resting in bed. Comfortable. Denies any complaints/questions/concerns. Continues to have poor PO intake. Hypoglycemic episode this AM. Patient denies any fever, chills, sweats, lightheadedness, dizziness, vision changes, CP, palpitations, edema, SOB, wheezing, cough, abdominal pain, nausea, vomiting, diarrhea, urinary symptoms, melena, numbness/tingling, weakness, muscle/joint pain, anxiety/depression, active bleeding, or new skin discoloration/changes. Spoke w/ RN- no acute events. Little to eat. Providing routine mouth care. Slept all night w/ Ativan. Refusing medications. Medications Current Inpatient Medications Medications (Trade) Dose Ordered Sig/Michel Route Start Time Stop Time Status Last Admin Dose Admin Acetaminophen (Tylenol Tab) 650 mg Q4H PRN PO 04/14/17 21:00 05/14/17 20:59 05/01/17 00:04 650 MG Magnesium Hydroxide (Milk Of Magnesia Susp) 30 ml Q6H PRN PO 04/14/17 21:00 05/14/17 20:59 Polyethylene (Miralax Powder Packet) 17 gm DAILY PRN PO 04/14/17 21:00 05/14/17 20:59 Ondansetron HCl (Zofran Inj) 4 mg Q6H PRN IV 04/14/17 21:00 05/14/17 20:59 04/27/17 01:14 4 MG Insulin Aspart (novoLOG ASPART) SLIDING SCALE If C... ACHS SC 04/14/17 21:00 05/14/17 20:59 04/30/17 17:55 30 UNITS Glucose (Glucose 40% Gel) 15-30 GRAMS 15 GRAMS... UD PRN PO 04/14/17 21:00 05/14/17 20:59 Glucose (Glucose Chew Tab) 4-8 Tablets 4 Tabl... UD PRN PO 04/14/17 21:00 05/14/17 20:59 Dextrose (Dextrose 50% 50ML Syringe) 25-50ML OF 50% DW IV FOR... UD PRN IV 04/14/17 21:00 05/14/17 20:59 05/01/17 07:36 25 ML Glucagon (Glucagon Inj) 1 mg UD PRN SQ 04/14/17 21:00 05/14/17 20:59 Amlodipine Besylate (Norvasc Tab) 5 mg QAM PO 04/15/17 08:00 05/15/17 08:59 04/27/17 08:36 5 MG Aspirin (Ecotrin Tab) 81 mg DAILY PO 04/15/17 08:00 05/15/17 08:59 04/27/17 08:36 81 MG Atorvastatin Calcium (Lipitor Tab) 40 mg DAILY PO 04/15/17 08:00 05/15/17 08:59 04/27/17 08:39 40 MG Budesonide/ Formoterol Fumarate (Symbicort 160/ 4.5 Inh) 2 puffs BID INH 04/15/17 08:00 05/15/17 07:59 04/30/17 21:50 2 PUFFS Furosemide (Lasix Tab) 20 mg DAILY PO 04/15/17 08:00 05/15/17 08:59 Future hold 04/27/17 08:36 20 MG Tiotropium [place] (Spiriva Handihaler Inhaler) 1 puff QAM INH 04/15/17 08:00 05/15/17 08:59 04/30/17 09:02 1 PUFF Albuterol/ Ipratropium (Duoneb) 3 ml QIDR INH 04/15/17 08:00 05/15/17 07:59 05/01/17 11:10 3 ML Heparin Sodium (Porcine) (Heparin 100 Unit/ml 5ml Flush) 5 ml PRN PRN IV 04/15/17 04:00 05/15/17 03:59 05/01/17 10:11 5 ML Prednisone (PredniSONE TAB) 10 mg Taper DAILY PO 04/17/17 08:00 05/04/17 07:59 04/27/17 08:35 30 MG Albuterol (Ventolin Hfa Inhaler) 2 puffs Q4H PRN INH 04/16/17 14:00 05/15/17 00:00 04/20/17 08:17 2 PUFFS Potassium Chloride ([place]iel Elix) 40 meq QAM PO 04/20/17 08:00 05/20/17 07:59 04/27/17 08:38 40 MEQ Guaifenesin (Organidin Nr Tab) 200 mg Q4H PRN PO 04/21/17 12:00 05/21/17 11:59 Sodium Chloride ([place] Nasal [place]) 2 sprays Q6 PRN NA 04/24/17 11:00 05/24/17 10:59 Magnesium Oxide (Mag-Ox Tab) 400 mg BID PO 04/24/17 20:00 05/24/17 19:59 04/27/17 21:36 400 MG Lidocaine HCl/ Diphenhydramine HCl/Al Hydroxide/ Mg Hydroxide/ Glycerin/Barcode ACHS MT 04/26/17 11:00 05/26/17 10:59 05/01/17 06:30 5 ML Insulin Glargine (Lantus Solostar Pen) 15 units DAILY@0800 SC 04/28/17 08:00 05/22/17 07:59 05/01/17 08:37 15 UNITS Mirtazapine (Remeron Tab) 15 mg HS PO 04/27/17 21:00 05/27/17 20:59 04/30/17 21:52 15 MG Scopolamine (Transderm-Scop Patch) 1.5 mg Q72H TD 04/29/17 09:00 05/29/17 08:59 04/29/17 09:09 1.5 MG Miscellaneous (Remove Transderm-Scop Patch) 1 ea Q72H N/A 05/02/17 09:00 06/01/17 08:59 Miscellaneous Information (Check Scopolamine Patch Placement) 1 ea QS N/A 04/29/17 16:00 05/29/17 15:59 05/01/17 08:00 1 EA Miconazole Nitrate (Desenex Powder) 1 appln UD PRN EXT 04/29/17 10:30 05/29/17 10:29 Morphine Sulfate (Roxanol Oral Soln) 10 mg Q2H PRN PO 04/29/17 11:30 05/11/17 10:14 05/01/17 07:45 10 MG Fluconazole/ Sodium Chloride 100 mg/Prmx 50 ml @ 100 mls/hr DAILY IV 04/30/17 08:00 05/10/17 07:59 05/01/17 08:33 100 MLS/HR Lorazepam 1 mg/ Syringe 1 ml @ 1 mls/min HS IV 04/30/17 21:00 05/30/17 20:59 04/30/17 22:01 1 MLS/MIN Insulin Glargine (Lantus Solostar Pen) 11 units HS SC 05/01/17 21:00 05/21/17 20:59 Objective Vital Signs Date Time Temp Pulse Resp B/P (MAP) Pulse Ox O2 Delivery O2 Flow Rate FiO2 05/01/17 11:16 36.8 100 22 146/67 (93) 100 6.0 05/01/17 11:10 100 22 100 Mask 6.0 05/01/17 08:00 Mask 6.0 CPAP 05/01/17 07:04 36.4 98 21 160/81 (107) 94 BiPAP 05/01/17 07:00 98 22 95 BiPAP/CPAP 5.0 05/01/17 04:13 37.1 100 22 125/65 (85) 92 BiPAP 05/01/17 00:03 38.0 05/01/17 00:00 CPAP 04/30/17 23:00 38.0 112 22 180/73 (108) 97 Nasal Cannula 4.0 04/30/17 19:50 101 26 98 Mask 4.0 04/30/17 19:24 37.1 102 20 92/50 (64) 97 Nasal Cannula 5.0 04/30/17 16:08 36.7 98 18 112/54 (73) 97 CPAP 6.0 04/30/17 16:00 Oxymask 4.0 04/30/17 15:49 88 26 97 Mask 4.0 Physical Exam General Appearance: no apparent distress, + obese Eyes: normal inspection, PERRL ENT: hearing grossly normal, + pertinent finding (dry/sore/blood throughout oral mucosa ) Neck: supple Respiratory/Chest: no respiratory distress, no accessory muscle use, + decreased breath sounds (throughout), + pertinent finding Abdomen: normal bowel sounds, non tender, soft Extremities: no calf tenderness, + swelling (+2-3 pitting edema of bilateral upper/lower extremities ), + pertinent finding (chronic stasis dermatitis changes to BLEs ) Neurologic/Psychiatric: alert, oriented x 3 Skin: normal color, warm/dry, no rash Laboratory Results Last 24 Hours Test 04/30/17 16:44 04/30/17 20:10 05/01/17 07:29 05/01/17 11:24 Bedside Glucose 320 mg/dl 155 mg/dl 61 mg/dl 71 mg/dl Assessment and Plan 76-year-old male here with neutropenic fever and pancytopenia from chemotherapy that was to treat a 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 Goals of care: - Palliative care consulted- DNR, pursue hospice care, Roxanol 10 mg q2 hrs PRN for pain/SOB - Scopolamine patch added - Added Remeron 15 mg HS for appetite stimulant/depression - Will discontinue medications appropriate medications - Discharge planning- planning for home w/ hospice Thrush: Magic swizzle ACHS + Viscous Lidocaine + added IV Fluconazole 100 mg on 04/29 for more aggressive treatment T2DM w/ hypoglycemia likely secondary to poor PO intake: - Lantus 15 u QAM and 13 u HS- decreased HS dose to 11 u to prevent hypoglycemic episode - BSG ACHS and ISS Insomnia: Ativan 1 mg HS Atypical infectious process on CT 04/22: - Started on Vancomycin + Levaquin on 04/15- transitioned to just Levaquin- 14 day course completed - Sputum culture w/ normal rosa - Continue O2 protocol, DuoNebs, home inhalers, Mucinex PRN - Treated w/ Prednisone taper - Leukocytosis- STABLE - Encourage patient OOB in chair +RLE DVT: - Started on IV Heparin gtt- experienced nose bleed/upper airway compromise so discontinued - Pulmonary- likely w/ PE given hypercoagulable state/RLE DVT- IVC/ anticoagulation discussed- patient/family declined further treatment and opted for hospice care Neutropenic fevers- RESOLVED: - Treated w/ Neupogen - Neutropenic precautions - IV Zosyn prophylactically- no source of infection, d/c'ed - UA negative; BCx negative; sputum culture negative; C.diff negative - Hematology/oncology consulted Pancytopenia, secondary to chemotherapy- RESOLVED Small cell lung cancer: - Hematology/oncology following- stop anti-cancer therapy, patient wishes to pursue hospice care - Decreased size of mass on CT on 04/22 COPD: - O2 protocol - BiPAP HS - Continue Symbicort, Spiriva, DuoNebs QID and PRN Bilateral UE swelling- STABLE: - UE US neg for DVT - ECHO 03/29/17- very limited, patient could not tolerate lying flat due to SOB - Treatment w/ Bumex 2 mg IV x3- little improvement in swelling- resume Lasix 20 mg daily- discontinued, hospice care [place] on CKD stage III- RESOLVED: Treated w/ IV Bumex x3 doses then transitioned to PO Lasix 20 mg daily- discontinued, hospice care Hypokalemia- RESOLVED: Continue KCL supplement- discontinued, hospice care Diarrhea- RESOLVED: C. diff negative CAD, HLD: Continue Aspirin, Lipitor, Norvasc- discontinued, hospice care DVT prophylaxis: Avoid anticoagulation due to bleeding risk/anemia Code status: LEVEL V, DNR Dispo: Planning for home w/ hospice- CM following
[2017-05-01] MEDS: MIRTAZAPINE TAB 15 MG TAB PO SCH (20:40)
[2017-05-01] MEDS: LORAZEPAM INJ 1 MG in SYRINGE 0.5 ML IV SCH (20:40)
[2017-05-02] VITALS (10 sets, daily range): BP systolic 100–149; BP diastolic 61–81; PULSE 96–124; TEMP 36.6–37.1; O2SAT 92–98
[2017-05-02] MEDS: MoRPHine SULFATE 10 MG/0.5 ML UDP PO PRN ×3 (05:49→19:39)
[2017-05-02] MEDS: LIDOCAINE HCL 2% VISCOUS SOLN 60 ML, DiphenhydrAMINE HCL SYRUP 150 MG, ALUMINUM/MAGNESI... MT SCH ×16 (05:49→19:39)
[2017-05-02] MEDS: ALBUT/IPRATROP 3MG/0.5MG NEB 3 ML VIAL INH SCH ×5 (06:57→20:00)
[2017-05-02] MEDS: TIOTROPIUM BROMIDE 5 PUFF/90 MCG INH INH SCH (07:52)
[2017-05-02] MEDS: BUDESONIDE/FORMOTEROL FUMARATE 160/4.5 60 PUFFS/INHALER INH SCH ×2 (07:53→19:38)
[2017-05-02] MEDS: INSULIN ASPART 100 UNITS/ML 3 ML PEN SC SCH ×4 (07:54→19:41)
[2017-05-02] MEDS: CHECK SCOPOLAMINE PATCH PLACEMENT SCH ×2 (07:55→16:00)
[2017-05-02] MEDS: FLUCONAZOLE / NSS 100 MG in PREMIXED NSS 50 ML IV SCH (07:55)
[2017-05-02] MEDS: SCOPOLAMINE 1.5 MG TDSY TD SCH (07:58)
[2017-05-02] MEDS: INSULIN GLARGINE SOLOSTAR 100 UNITS/ML 3 ML PEN SC SCH ×2 (08:01→19:40)
[2017-05-02] MEDS ORDERED: QUETIAPINE FUMARATE 25 MG TAB PO STA (14:36)
--- NOTE | 2017-05-02 14:42 | Progress Note ---
Subjective Date of Service: May 02, 2017. 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 w/ leasing sales consultant, review of inpatient medication list Pain: mouth pain PO Intake: improved Voiding: quispe catheter in place patient having confusion, hallucinations today, thinks there is a puppy in his ice water eating better mouth looks slightly better, lips still incredibly painful and bleeding dyspnea but relieved with Roxanol PRN still no response from patient's daughter, need to make plans for home hospice Problem List Medical Problems: (1) COPD (chronic obstructive pulmonary disease) Status: Acute (2) Hypoxia Status: Acute (3) Lung mass Status: Acute (4) SOB (shortness of breath) Status: Acute Review of Systems Constitutional: + weakness, + fatigue ENT: + problem reported (sore mouth, tongue and lips) Respiratory: + cough, + sputum, + shortness of breath Neurologic: + weakness Psychiatric: + problem reported (hallucinations) All Other Systems: Reviewed and Negative Medications Current Inpatient Medications Medications (Trade) Dose Ordered Sig/Michel Route Start Time Stop Time Status Last Admin Dose Admin Acetaminophen (Tylenol Tab) 650 mg Q4H PRN PO 04/14/17 21:00 05/14/17 20:59 05/01/17 00:04 650 MG Magnesium Hydroxide (Milk Of Magnesia Susp) 30 ml Q6H PRN PO 04/14/17 21:00 05/14/17 20:59 Polyethylene (Miralax Powder Packet) 17 gm DAILY PRN PO 04/14/17 21:00 05/14/17 20:59 Ondansetron HCl (Zofran Inj) 4 mg Q6H PRN IV 04/14/17 21:00 05/14/17 20:59 04/27/17 01:14 4 MG Insulin Aspart (novoLOG ASPART) SLIDING SCALE If C... ACHS SC 04/14/17 21:00 05/14/17 20:59 04/30/17 17:55 30 UNITS Glucose (Glucose 40% Gel) 15-30 GRAMS 15 GRAMS... UD PRN PO 04/14/17 21:00 05/14/17 20:59 Glucose (Glucose Chew Tab) 4-8 Tablets 4 Tabl... UD PRN PO 04/14/17 21:00 05/14/17 20:59 Dextrose (Dextrose 50% 50ML Syringe) 25-50ML OF 50% DW IV FOR... UD PRN IV 04/14/17 21:00 05/14/17 20:59 05/01/17 07:36 25 ML Glucagon (Glucagon Inj) 1 mg UD PRN SQ 04/14/17 21:00 05/14/17 20:59 Budesonide/ Formoterol Fumarate (Symbicort 160/ 4.5 Inh) 2 puffs BID INH 04/15/17 08:00 05/15/17 07:59 05/02/17 07:53 2 PUFFS Tiotropium [place] (Spiriva Handihaler Inhaler) 1 puff QAM INH 04/15/17 08:00 05/15/17 08:59 05/02/17 07:52 1 PUFF Albuterol/ Ipratropium (Duoneb) 3 ml QIDR INH 04/15/17 08:00 05/15/17 07:59 05/02/17 10:59 3 ML Heparin Sodium (Porcine) (Heparin 100 Unit/ml 5ml Flush) 5 ml PRN PRN IV 04/15/17 04:00 05/15/17 03:59 05/02/17 08:32 5 ML Albuterol (Ventolin Hfa Inhaler) 2 puffs Q4H PRN INH 04/16/17 14:00 05/15/17 00:00 04/20/17 08:17 2 PUFFS Sodium Chloride ([place] Nasal [place]) 2 sprays Q6 PRN NA 04/24/17 11:00 05/24/17 10:59 Lidocaine HCl/ Diphenhydramine HCl/Al Hydroxide/ Mg Hydroxide/ Glycerin/Barcode ACHS MT 04/26/17 11:00 05/26/17 10:59 05/02/17 12:38 5 ML Insulin Glargine (Lantus Solostar Pen) 15 units DAILY@0800 SC 04/28/17 08:00 05/22/17 07:59 05/02/17 08:01 15 UNITS Mirtazapine (Remeron Tab) 15 mg HS PO 04/27/17 21:00 05/27/17 20:59 05/01/17 20:40 15 MG Scopolamine (Transderm-Scop Patch) 1.5 mg Q72H TD 04/29/17 09:00 05/29/17 08:59 05/02/17 07:58 1.5 MG Miscellaneous (Remove Transderm-Scop Patch) 1 ea Q72H N/A 05/02/17 09:00 06/01/17 08:59 05/02/17 07:58 1 EA Miscellaneous Information (Check Scopolamine Patch Placement) 1 ea QS N/A 04/29/17 16:00 05/29/17 15:59 05/02/17 07:55 1 EA Miconazole Nitrate (Desenex Powder) 1 appln UD PRN EXT 04/29/17 10:30 05/29/17 10:29 Morphine Sulfate (Roxanol Oral Soln) 10 mg Q2H PRN PO 04/29/17 11:30 05/11/17 10:14 05/02/17 12:38 10 MG Fluconazole/ Sodium Chloride 100 mg/Prmx 50 ml @ 100 mls/hr DAILY IV 04/30/17 08:00 05/10/17 07:59 05/02/17 07:55 100 MLS/HR Lorazepam 1 mg/ Syringe 1 ml @ 1 mls/min HS IV 04/30/17 21:00 05/30/17 20:59 05/01/17 20:40 1 MLS/MIN Insulin Glargine (Lantus Solostar Pen) 11 units HS SC 05/01/17 21:00 05/21/17 20:59 05/01/17 20:42 11 UNITS Quetiapine Fumarate (seroQUEL TAB) 25 mg NOW PO 05/02/17 14:30 06/01/17 14:29 UNV Quetiapine Fumarate (seroQUEL TAB) 25 mg HS PO 05/02/17 21:00 06/01/17 20:59 UNV Objective Vital Signs Date Time Temp Pulse Resp B/P (MAP) Pulse Ox O2 Delivery O2 Flow Rate FiO2 05/02/17 11:14 36.6 96 18 146/80 (102) 98 4.0 05/02/17 11:02 98 20 92 Mask 4.0 05/02/17 08:00 Oxymask 4.0 05/02/17 07:41 36.6 102 20 149/81 (103) 98 4.0 3/24/18 06:58 100 20 96 Mask 4.0 05/02/17 00:00 97 Oxymask 4.0 21 05/01/17 23:17 36.6 104 16 122/64 (83) 96 Oxymask 4.0 05/01/17 20:00 97 Oxymask 4.0 21 05/01/17 19:10 36.6 110 20 120/58 (78) 97 05/01/17 18:59 108 20 97 Mask 4.0 05/01/17 16:00 Mask 6.0 05/01/17 15:34 36.6 118 22 129/59 (82) 96 4.0 05/01/17 14:49 108 20 97 Mask 4.0 Physical Exam General Appearance: + mild distress, + obese ENT: + pertinent finding (lips cracked, bleeding, open sores, tongue with white plaque, irritation) Respiratory/Chest: chest non-tender, no accessory muscle use, + decreased breath sounds, + crackles Cardiovascular: regular rate, rhythm, no gallop, no JVD, no murmur Abdomen: normal bowel sounds, non tender, soft, no organomegaly Extremities: non-tender, normal inspection, no calf tenderness, normal capillary refill, pelvis stable, + pedal edema (diffuse, anasarca) Neurologic/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, + motor weakness (generalized , bed bound), + depressed affect, + pertinent finding (visual hallucinations, anxiety) Laboratory Results Last 24 Hours Test 05/01/17 16:56 05/01/17 20:34 05/02/17 07:52 05/02/17 11:32 Bedside Glucose 89 mg/dl 138 mg/dl 138 mg/dl 141 mg/dl Assessment and Plan - Metastatic small cell lung CA: no further chemo planned, strictly hospice care treat dyspnea with Roxanol 10mL as needed, providing adequate relief - DVT: had a significant nose bleed on heparin, does not want IVC filter, hospice care no further nose bleeds since stopping heparin - Insomnia: better response to Ativan, will continue HS says he is still sleeping better than before - Depression, poor appetite: continue [id number] - Mouth sores: little relief with Magic swizzle, some numbness provided started Diflucan IV, some more improvement in pain control continue IV until d/c and will change to PO for 14 day course total mouth looks even better today, eating more, RN putting Biotin on every hour - Visual hallucinations: possible hospital delirium, medication induced? give Seroquel and add Seroquel HS, see if it resolves plan is to go home on hospice, however, daughter will not commit to make these plans if no response tomorrow, will need to look into SNF for placement/hospice Continued [facility] stay due to: multiple IV medications needed, home environment unsafe for pt Discharge planning: shelter facility, uncertain
[2017-05-02] MEDS ORDERED: NURSING VERBAL MED ORDER ONE (16:15)
[2017-05-02] MEDS: MIRTAZAPINE TAB 15 MG TAB PO SCH (19:38)
[2017-05-02] MEDS: LORAZEPAM INJ 1 MG in SYRINGE 0.5 ML IV SCH (19:39)
[2017-05-02] MEDS ORDERED: QUETIAPINE FUMARATE 25 MG TAB PO SCH (21:00)
[2017-05-03] VITALS (7 sets, daily range): BP systolic 118–134; BP diastolic 57–67; PULSE 92–115; TEMP 36.5–37; O2SAT 89–100
[2017-05-03] MEDS: MoRPHine SULFATE 10 MG/0.5 ML UDP PO PRN ×2 (00:09→08:49)
[2017-05-03] MEDS: ALBUT/IPRATROP 3MG/0.5MG NEB 3 ML VIAL INH SCH ×4 (07:07→19:16)
[2017-05-03] MEDS: INSULIN ASPART 100 UNITS/ML 3 ML PEN SC SCH (08:34)
[2017-05-03] MEDS: FLUCONAZOLE / NSS 100 MG in PREMIXED NSS 50 ML IV SCH (08:49)
[2017-05-03] MEDS: BUDESONIDE/FORMOTEROL FUMARATE 160/4.5 60 PUFFS/INHALER INH SCH (08:49)
[2017-05-03] MEDS: TIOTROPIUM BROMIDE 5 PUFF/90 MCG INH INH SCH (08:49)
[2017-05-03] MEDS: LIDOCAINE HCL 2% VISCOUS SOLN 60 ML, DiphenhydrAMINE HCL SYRUP 150 MG, ALUMINUM/MAGNESI... MT SCH ×16 (08:50→20:24)
[2017-05-03] MEDS: INSULIN GLARGINE SOLOSTAR 100 UNITS/ML 3 ML PEN SC SCH (08:52)
[2017-05-03] MEDS ORDERED: ATROPINE SULFATE 1% OP SOLN 2 ML BTL ONE (09:15)
--- NOTE | 2017-05-03 09:29 | Progress Note ---
Subjective Date of Service: May 03, 2017. Subjective Pt evaluation today including: conversation w/ family, physical exam, review of inpatient medication list Pain: a lot of discomfort with mouth PO Intake: very poor Voiding: quispe catheter in place patient in more respiratory distress today, difficulty with secretions tried Roxanol, little relief very confused despite removing scopolamine patch yesterday at this time I do not feel his comfort can be managed at home long talk with daughter at the bedside, she agrees that she could not manage him at home since Roxanol 10mL did not help his breathing, I discussed a morphine drip, she agreed will ask CM to evaluate for inpatient hospice updated RN, will add back Scopolamine patch for secretions, start Morphine drip for comfort d/c all other unnecessary medications Problem List Medical Problems: (1) COPD (chronic obstructive pulmonary disease) Status: Acute (2) Hypoxia Status: Acute (3) Lung mass Status: Acute (4) SOB (shortness of breath) Status: Acute Review of Systems cannot review, confused, patient clearly in respiratory distress, discomfort Medications Current Inpatient Medications Medications (Trade) Dose Ordered Sig/Michel Route Start Time Stop Time Status Last Admin Dose Admin Acetaminophen (Tylenol Tab) 650 mg Q4H PRN PO 04/14/17 21:00 05/14/17 20:59 05/01/17 00:04 650 MG Magnesium Hydroxide (Milk Of Magnesia Susp) 30 ml Q6H PRN PO 04/14/17 21:00 05/14/17 20:59 Polyethylene (Miralax Powder Packet) 17 gm DAILY PRN PO 04/14/17 21:00 05/14/17 20:59 Ondansetron HCl (Zofran Inj) 4 mg Q6H PRN IV 04/14/17 21:00 05/14/17 20:59 04/27/17 01:14 4 MG Insulin Aspart (novoLOG ASPART) SLIDING SCALE If C... ACHS SC 04/14/17 21:00 05/14/17 20:59 04/30/17 17:55 30 UNITS Glucose (Glucose 40% Gel) 15-30 GRAMS 15 GRAMS... UD PRN PO 04/14/17 21:00 05/14/17 20:59 Glucose (Glucose Chew Tab) 4-8 Tablets 4 Tabl... UD PRN PO 04/14/17 21:00 05/14/17 20:59 Dextrose (Dextrose 50% 50ML Syringe) 25-50ML OF 50% DW IV FOR... UD PRN IV 04/14/17 21:00 05/14/17 20:59 05/01/17 07:36 25 ML Glucagon (Glucagon Inj) 1 mg UD PRN SQ 04/14/17 21:00 05/14/17 20:59 Budesonide/ Formoterol Fumarate (Symbicort 160/ 4.5 Inh) 2 puffs BID INH 04/15/17 08:00 05/15/17 07:59 05/02/17 19:38 2 PUFFS Tiotropium [place] (Spiriva Handihaler Inhaler) 1 puff QAM INH 04/15/17 08:00 05/15/17 08:59 05/02/17 07:52 1 PUFF Albuterol/ Ipratropium (Duoneb) 3 ml QIDR INH 04/15/17 08:00 05/15/17 07:59 05/03/17 07:07 3 ML Heparin Sodium (Porcine) (Heparin 100 Unit/ml 5ml Flush) 5 ml PRN PRN IV 04/15/17 04:00 05/15/17 03:59 05/03/17 08:53 5 ML Albuterol (Ventolin Hfa Inhaler) 2 puffs Q4H PRN INH 04/16/17 14:00 05/15/17 00:00 04/20/17 08:17 2 PUFFS Sodium Chloride ([place] Nasal [place]) 2 sprays Q6 PRN NA 04/24/17 11:00 05/24/17 10:59 Lidocaine HCl/ Diphenhydramine HCl/Al Hydroxide/ Mg Hydroxide/ Glycerin/Barcode ACHS MT 04/26/17 11:00 05/26/17 10:59 05/03/17 08:50 5 ML Insulin Glargine (Lantus Solostar Pen) 15 units DAILY@0800 SC 04/28/17 08:00 05/22/17 07:59 05/03/17 08:52 15 UNITS Mirtazapine (Remeron Tab) 15 mg HS PO 04/27/17 21:00 05/27/17 20:59 05/02/17 19:38 15 MG Miconazole Nitrate (Desenex Powder) 1 appln UD PRN EXT 04/29/17 10:30 05/29/17 10:29 Morphine Sulfate (Roxanol Oral Soln) 10 mg Q2H PRN PO 04/29/17 11:30 05/11/17 10:14 05/03/17 08:49 10 MG Fluconazole/ Sodium Chloride 100 mg/Prmx 50 ml @ 100 mls/hr DAILY IV 04/30/17 08:00 05/10/17 07:59 05/03/17 08:49 100 MLS/HR Lorazepam 1 mg/ Syringe 1 ml @ 1 mls/min HS IV 04/30/17 21:00 05/30/17 20:59 05/02/17 19:39 1 MLS/MIN Insulin Glargine (Lantus Solostar Pen) 11 units HS SC 05/01/17 21:00 05/21/17 20:59 05/02/17 19:40 11 UNITS Quetiapine Fumarate (seroQUEL TAB) 25 mg HS PO 05/02/17 21:00 06/01/17 20:59 05/02/17 19:38 25 MG Atropine Sulfate (Atropine Sulfate 1% Oph Soln) 1 drops Q2H PRN PO 05/03/17 09:15 06/02/17 09:14 UNV Scopolamine (Transderm-Scop Patch) 1.5 mg Q72H TD 05/03/17 09:30 06/02/17 09:29 UNV Miscellaneous (Remove Transderm-Scop Patch) 1 ea Q72H N/A 05/06/17 09:30 06/05/17 09:29 UNV Miscellaneous Information (Check Scopolamine Patch Placement) 1 ea QS N/A 05/03/17 16:00 06/02/17 15:59 UNV Morphine Sulfate/ Dextrose 250 ml @ 0 mls/hr Q0M PRN IV 05/03/17 09:30 05/17/17 09:29 UNV Objective Vital Signs Date Time Temp Pulse Resp B/P (MAP) Pulse Ox O2 Delivery O2 Flow Rate FiO2 05/03/17 07:27 36.5 103 22 118/57 (77) 100 5.0 05/03/17 07:07 92 24 100 Nasal Cannula 5.0 05/03/17 04:08 37.0 103 22 134/67 (89) 96 Nasal Cannula 5.0 05/03/17 00:00 97 Oxymask 5.0 21 05/02/17 23:07 37.1 103 22 106/65 (79) 93 Nasal Cannula 5.0 05/02/17 20:00 97 Oxymask 5.0 21 05/02/17 19:42 37.1 107 20 100/61 (74) 96 Nasal Cannula 5.0 05/02/17 16:00 105 05/02/17 15:45 Nasal Cannula 5.0 05/02/17 15:32 36.8 124 24 121/76 (91) 95 Nasal Cannula 5.0 05/02/17 11:14 36.6 96 18 146/80 (102) 98 4.0 05/02/17 11:02 98 20 92 Mask 4.0 Physical Exam General Appearance: + moderate distress, + obese ENT: + pertinent finding (copious secreations in mouth, painful blisters on lips) Respiratory/Chest: + respiratory distress, + decreased breath sounds, + accessory muscle use, + crackles Cardiovascular: no edema, no gallop, no JVD, no murmur, + tachycardia Abdomen: non tender, soft, no organomegaly, + abnormal bowel sounds (hypoactive ) Extremities: non-tender, no calf tenderness, pelvis stable, + pedal edema ( anasarca, legs and arms, abdomen), + slow capillary refill Neurologic/Psychiatric: + motor weakness, + disoriented, + pertinent finding ( visual hallucinations, anxious, in distress) Skin: + pertinent finding (blisters on lips) Laboratory Results Last 24 Hours Test 05/02/17 11:32 05/02/17 16:28 05/02/17 19:35 05/03/17 07:38 Bedside Glucose 141 mg/dl 177 mg/dl 178 mg/dl 153 mg/dl Assessment and Plan - Metastatic small cell lung CA: no further chemo planned, strictly hospice care more respiratory distress today, Roxanol not providing adequate relief will change to morphine drip, recommend inpatient hospice care discussed with daughter, she is in agreement with this plan - DVT: had a significant nose bleed on heparin, does not want IVC filter, hospice care no further nose bleeds since stopping heparin - Insomnia: better response to Ativan, will continue HS will now get adequate rest with Morphine drip - Depression, poor appetite: stop Remeron as we are going for strictly comfort care - Mouth sores: little relief with Magic swizzle, some numbness provided started Diflucan IV, some more improvement in pain control stop Diflucan at this time since we will make him comfort care continue Biotin as needed for comfort - Visual hallucinations: possible hospital delirium, medication induced? stop Seroquel resume Scopolamine patch as his secretions are worse, difficult time handling them comfort care, ask CM to make referral for inpatient hospice plan is to go home on hospice, however, daughter will not commit to make these plans if no response tomorrow, will need to look into SNF for placement/hospice Continued [facility] stay due to: multiple IV medications needed, home environment unsafe for pt Discharge planning: shelter facility, uncertain
[2017-05-03] MEDS ORDERED: MoRPHine SULF/NSS 250MG/250ML 250 ML IV PRN (09:30)
[2017-05-03] MEDS ORDERED: MoRPHine SULF/NSS INJ 1 MG/ML 250 ML BTL ONE (09:43)
[2017-05-03] MEDS ORDERED: SCOPOLAMINE 1.5 MG TDSY TD SCH (11:00)
[2017-05-03] MEDS: ATROPINE SULFATE 1% OP SOLN 2 ML BTL PO PRN ×3 (12:00→17:11)
[2017-05-03] MEDS: CHECK SCOPOLAMINE PATCH PLACEMENT SCH ×2 (16:08→23:37)
[2017-05-03] MEDS: LORAZEPAM INJ 1 MG in SYRINGE 0.5 ML IV SCH (20:26)
[2017-05-03] MEDS ORDERED: NURSING VERBAL MED ORDER ONE (22:00)
[2017-05-04] MEDS: LIDOCAINE HCL 2% VISCOUS SOLN 60 ML, DiphenhydrAMINE HCL SYRUP 150 MG, ALUMINUM/MAGNESI... MT SCH ×4 (05:52)
[2017-05-04] MEDS: ALBUT/IPRATROP 3MG/0.5MG NEB 3 ML VIAL INH SCH ×2 (07:07→07:11)
[2017-05-04 07:11] VITALS: BP 91/55; PULSE 124; TEMP 37; O2SAT 80
[2017-05-04] MEDS: CHECK SCOPOLAMINE PATCH PLACEMENT SCH (07:28)
--- NOTE | 2017-05-04 09:20 | Death Summary ---
Summary of Admission Date Apr 14, 2017 at 21:08 Date & Time of May 04, 2017. 0850 Cause of Metastatic small cell lung CA Secondary Diagnoses DVT Hospital Course 76-year-old male admitted on April 14, 2017 with with neutropenic fever and pancytopenia from chemotherapy that was to treat a 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, lung mass is some decreased however his general condition is declining, has been agreeable for palliative care, an dcomfort methods Metastatic small cell lung CA pt pronounced on 849 this am, discussed daughter , answered all questions certificate signed Copy To Anil Valdez M.D.
== END 2017-05-04 08:50 | disposition expired | DRG 808 ==
LOC: C.EDB 17:39 → C.4E 21:08 → ENRESERV 21:27
PROVIDERS: ADMIT Student in an Organized Health Care Education/Training Program; ATTEND Hospitalist
DX: D61.810 Antineoplastic chemotherapy induced pancytopenia (principal); J96.21 Acute and chronic respiratory failure with hypoxia; E88.3 Tumor lysis syndrome; J96.22 Acute and chronic respiratory failure with hypercapnia; C34.90 Malignant neoplasm of unspecified part of unspecified bronchus or lung; I96 Gangrene, not elsewhere classified; I13.0 Hypertensive heart and chronic kidney disease with heart failure and stage 1 through stage 4 chronic kidney disease, or unspecified chronic kidney disease; N17.9 Acute kidney failure, unspecified; Z68.42 Body mass index [BMI] 45.0-49.9, adult; E44.0 Moderate protein-calorie malnutrition; B37.0 Candidal stomatitis; I82.411 Acute embolism and thrombosis of right femoral vein; Z51.5 Encounter for palliative care; N18.3 Chronic kidney disease, stage 3 (moderate); E78.5 Hyperlipidemia, unspecified; E66.01 Morbid (severe) obesity due to excess calories; D70.9 Neutropenia, unspecified; F17.200 Nicotine dependence, unspecified, uncomplicated; E83.42 Hypomagnesemia; E11.22 Type 2 diabetes mellitus with diabetic chronic kidney disease; D69.6 Thrombocytopenia, unspecified; I50.9 Heart failure, unspecified; I25.10 Atherosclerotic heart disease of native coronary artery without angina pectoris; R79.89 Other specified abnormal findings of blood chemistry; R60.9 Edema, unspecified; G47.30 Sleep apnea, unspecified; J44.9 Chronic obstructive pulmonary disease, unspecified; Z79.82 Long term (current) use of aspirin; Z79.52 Long term (current) use of systemic steroids; E11.65 Type 2 diabetes mellitus with hyperglycemia; Z66 Do not resuscitate